=== PATIENT | male | born 1995 | race Caucasian/White ===

== ENCOUNTER 2018-08-04 22:29 | Emergency (ER) | payer SELFPAY ==
[2018-08-04] MEDS ORDERED: TETRACAINE HCL 0.5% 2ML OPTH ONE (22:53)
[2018-08-04] MEDS ORDERED: FLUORESCEIN SODIUM 0.6 MG/WRAP ONE (22:54)
[2018-08-04] MEDS ORDERED: NA CHLORIDE 0.9% 1,000 ML ONE (23:47)
[2018-08-04] MEDS ORDERED: CODEINE 30MG/APAP 300MG TAB ONE (23:52)
--- NOTE | 2018-08-05 00:34 | EDPHYS ---
Physician Documentation [facility] Name: Ramiro Jay Age: 23 yrs Sex: Male : 1995 Arrival Date: 08/04/2018 Time: 22:29 Bed 26 Private MD: ED Physician Juan Sparks HPI: 08/04 23:40 This 23 yrs old Male presents to ER via Ambulatory with complaints of pm1 Chemical Exposure In Eye. 23:40 The patient is experiencing pain, The patient sustained exposure to sulfur dust, to pm1 both eyes, caused by chemicals. Onset: The symptoms/episode began/occurred today. Duration: the symptoms are continuous. Aggravated by nothing. Alleviated by eye flush. Associated signs and symptoms: Pertinent positives: None. Pertinent negatives: None. Patient does not utilize any form of vision correction. Severity of symptoms: in the emergency department the symptoms have improved. The patient has not experienced similar symptoms in the past. The patient has not recently seen a physician. Patient was not wearing eye petty. Historical: - Allergies: 22:39 No Known Allergies; ak1 - Home Meds: 22:39 None [Active]; ak1 - PMHx: 22:39 ADD/ADHD; ak1 - PSHx: 22:39 None; ak1 - Immunization history:: Adult Immunizations unknown. - Social history:: Smoking status: Patient uses tobacco products, denies chronic smoking, but will smoke occasionally. - Ebola Screening: : No symptoms or risks identified at this time. ROS: 23:40 Constitutional: Negative for fever, chills, and weight loss, ENT: Negative for injury, pm1 pain, and discharge, Neck: Negative for injury, pain, and swelling, Cardiovascular: Negative for chest pain, palpitations, and edema, Respiratory: Negative for shortness of breath, cough, wheezing, and pleuritic chest pain. 23:40 Abdomen/GI: Negative for abdominal pain, nausea, vomiting, diarrhea, and constipation, Back: Negative for injury and pain, MS/Extremity: Negative for injury and deformity, Skin: Negative for injury, rash, and discoloration, Neuro: Negative for headache, weakness, numbness, tingling, and seizure. 23:40 Eyes: Positive for pain, of the right eye and left eye, Negative for photophobia. Exam: 23:40 Constitutional: This is a well developed, well nourished patient who is awake, alert, pm1 and in no acute distress. Head/Face: Normocephalic, atraumatic. 23:40 ENT: Nares patent. No nasal discharge, no septal abnormalities noted. Tympanic membranes are normal and external auditory canals are clear. Oropharynx with no redness, swelling, or masses, exudates, or evidence of obstruction, uvula midline. Mucous membranes moist. Neck: Trachea midline, no thyromegaly or masses palpated, and no cervical lymphadenopathy. Supple, full range of motion without nuchal rigidity, or vertebral point tenderness. No Meningismus. Chest/axilla: Normal chest wall appearance and motion. Nontender with no deformity. No lesions are appreciated. Cardiovascular: Regular rate and rhythm with a normal S1 and S2. No gallops, murmurs, or rubs. Normal PMI, no JVD. No pulse deficits. Respiratory: Lungs have equal breath sounds bilaterally, clear to auscultation and percussion. No rales, rhonchi or wheezes noted. No increased work of breathing, no retractions or nasal flaring. Abdomen/GI: Soft, non-tender, with normal bowel sounds. No distension or tympany. No guarding or rebound. No evidence of tenderness throughout. Back: No spinal tenderness. No costovertebral tenderness. Full range of motion. Skin: Warm, dry with normal turgor. Normal color with no rashes, no lesions, and no evidence of cellulitis. MS/ Extremity: Pulses equal, no cyanosis. Neurovascular intact. Full, normal range of motion. 23:40 Eyes: Periorbital structures: appear normal, Pupils: no acute changes, normal size, normal reaction to light, Extraocular movements: intact throughout, Conjunctiva: normal, no chemosis, no excoriation, no exudate, no injection, no subconjunctival hemorrhage no abnormal tearing, Corneas: abrasion, is not appreciated, foreign body, is not appreciated, a fluorescein strip employed to appreciate the findings, Sclera: no appreciated abnormality, Lids and lashes: appear normal, bilaterally. 23:40 Neuro: Orientation: is normal, Motor: is normal, moves all fours, Sensation: is normal, no obvious gross deficits, Gait: is steady, at a normal pace, without difficulty. Vital Signs: 22:39 BP 138 / 91; Pulse 96; Resp 18; Temp 98; Pulse Ox 98% on R/A; Weight 95.25 kg (R); ak1 Height 6 ft. 2 in. (187.96 cm) (R); Pain 10/10; 23:30 BP 130 / 85; Pulse 90; Resp 18; Pulse Ox 100% on R/A; Pain 2/10; mg2 08/05 00:30 BP 125 / 78; Pulse 89; Resp 18; Pulse Ox 100% on R/A; Pain 2/10; mg2 08/04 22:39 Body Mass Index 26.96 (95.25 kg, 187.96 cm) ak1 MDM: 08/04 22:52 Patient medically screened. pm1 08/05 00:29 Data reviewed: vital signs. Data interpreted: Pulse oximetry: on room air is 98 %. pm1 Interpretation: normal. Counseling: I had a detailed discussion with the patient and/or guardian regarding: the historical points, exam findings, and any diagnostic results supporting the discharge/admit diagnosis, the need for outpatient follow up, to return to the emergency department if symptoms worsen or persist or if there are any questions or concerns that arise at home. 08/04 22:56 Order name: Eye Tray; Complete Time: 22:57 tl3 Administered Medications: 08/04 22:53 Drug: Tetracaine Drops 0.5 % 1 drops Route: Ophthalmic; Site: both eyes; tl3 23:50 Follow up: Response: No adverse reaction tl3 22:54 Drug: Fluorescein Strip 1 strip Route: Ophthalmic; Site: both eyes; tl3 23:49 Follow up: Response: No adverse reaction tl3 23:49 Drug: Tylenol #3 (300 mg-30 mg) 2 tabs Route: PO; tl3 08/05 01:04 Follow up: Response: No adverse reaction; Marked relief of symptoms mg2 Disposition: 05:42 Co-signature as Attending Physician, Juan Sparks MD I agree with the assessment and tw4 plan of care. Disposition: 08/05/18 00:33 Discharged to Home. Impression: Irritant contact to eyes due to other chemical products - sulfur. - Condition is Stable. - Prescriptions for Erythromycin 5 mg/gram (0.5 %) Ophthalmic Ointment - apply 1 ribbon by OPHTHALMIC route every 8 hours for 7 days; 1 tube. - Medication Reconciliation Form, Thank You Letter, Antibiotic Education, Work release form form. - Follow up: Emergency Department; When: As needed; Reason: Worsening of condition. Follow up: Private Physician; When: 2 - 3 days; Reason: Recheck today's complaints, Continuance of care, Re-evaluation by your physician. - Problem is new. - Symptoms have improved. Signatures: Shellie Maria, RN RN ak1 Laurent Christine, AVP AVP pm1 Juan Sparks MD MD tw4 Jeny Peoples, RN RN tl3 Mark Anthony Pickett, AUDRA RN mg2 Corrections: (The following items were deleted from the chart) 00:35 00:33 08/05/2018 00:33 Discharged to Home. Impression: Irritant contact due to other pm1 chemical products - sulfur. Condition is Stable. Forms are Medication Reconciliation Form, Thank You Letter, Antibiotic Education, Prescription Opioid Use. Follow up: Emergency Department; When: As needed; Reason: Worsening of condition. Follow up: Private Physician; When: 2 - 3 days; Reason: Recheck today's complaints, Continuance of care, Re-evaluation by your physician. Problem is new. Symptoms have improved. pm1 01:05 00:35 08/05/2018 00:33 Discharged to Home. Impression: Irritant contact to eyes due to mg2 other chemical products - sulfur. Condition is Stable. Forms are Medication Reconciliation Form, Thank You Letter, Antibiotic Education, Prescription Opioid Use. Follow up: Emergency Department; When: As needed; Reason: Worsening of condition. Follow up: Private Physician; When: 2 - 3 days; Reason: Recheck today's complaints, Continuance of care, Re-evaluation by your physician. Problem is new. Symptoms have improved. pm1
--- NOTE | 2018-08-05 00:34 | ER ---
Nurse's Notes [facility] Name: Ramiro Jay Age: 23 yrs Sex: Male : 1995 Arrival Date: 08/04/2018 Time: 22:29 Bed 26 Private MD: Diagnosis: Irritant contact to eyes due to other chemical products - sulfur Presentation: 08/04 22:37 Presenting complaint: Patient states: pain, tearing and swelling to bilateral eyes ak1 since 1000 at work. pt stated he was not wearing safety glasses, they were not issued. pt flushed eyes with water at work. Transition of care: patient was not received from another setting of care. Onset of symptoms was August 04, 2018. Risk Assessment: Do you want to hurt yourself or someone else? Patient reports no desire to harm self or others. Initial Sepsis Screen: Does the patient meet any 2 criteria? No. Patient's initial sepsis screen is negative. Does the patient have a suspected source of infection? No. Patient's initial sepsis screen is negative. Note pt stated he is "really tired and I can't close my eyes to sleep". Care prior to arrival: None. 22:37 Method Of Arrival: Ambulatory ak1 22:37 Acuity: MICHELA 4 ak1 Triage Assessment: 22:39 General: Appears in no apparent distress. Behavior is calm, cooperative. Pain: ak1 Complains of pain in right eye and left eye. Historical: - Allergies: 22:39 No Known Allergies; ak1 - Home Meds: 22:39 None [Active]; ak1 - PMHx: 22:39 ADD/ADHD; ak1 - PSHx: 22:39 None; ak1 - Immunization history:: Adult Immunizations unknown. - Social history:: Smoking status: Patient uses tobacco products, denies chronic smoking, but will smoke occasionally. - Ebola Screening: : No symptoms or risks identified at this time. Screenin:40 Abuse screen: Denies threats or abuse. Denies injuries from another. Nutritional ak1 screening: No deficits noted. Tuberculosis screening: No symptoms or risk factors identified. Fall Risk None identified. Assessment: 22:50 General: Appears distressed, uncomfortable, well groomed, well developed, well tl3 nourished, Behavior is calm, cooperative, appropriate for age. Pain: Complains of pain in left eye and right eye. Neuro: Level of Consciousness is awake, alert, obeys commands, Oriented to person, place, time, situation, Appropriate for age. Cardiovascular: Patient's skin is warm and dry. Respiratory: Airway is patent Respiratory effort is even, unlabored, Respiratory pattern is regular, symmetrical. GI: No signs and/or symptoms were reported involving the gastrointestinal system. : No signs and/or symptoms were reported regarding the genitourinary system. EENT: Sclera/Cornea are reddened in outer aspect of conjuctiva of right eye, iris of right eye, inner aspect of conjuctiva of right eye, outer aspect of conjuctiva of left eye, iris of left eye and inner aspect of conjunctiva of left eye pt got sulphur in both eyes at work, flushed with water 5-6 times can not close eyes without pain. Derm: No signs and/or symptoms reported regarding the dermatologic system. Musculoskeletal: No signs and/or symptoms reported regarding the musculoskeletal system. 23:48 Reassessment: No changes from previously documented assessment. Patient and/or family tl3 updated on plan of care and expected duration. Pain level reassessed. Patient is alert, oriented x 3, equal unlabored respirations, skin warm/dry/pink. flushing eyes with 1 liter of NS, pt tolerating it well. Vital Signs: 22:39 BP 138 / 91; Pulse 96; Resp 18; Temp 98; Pulse Ox 98% on R/A; Weight 95.25 kg (R); ak1 Height 6 ft. 2 in. (187.96 cm) (R); Pain 10/10; 23:30 BP 130 / 85; Pulse 90; Resp 18; Pulse Ox 100% on R/A; Pain 2/10; mg2 08/05 00:30 BP 125 / 78; Pulse 89; Resp 18; Pulse Ox 100% on R/A; Pain 2/10; mg2 08/04 22:39 Body Mass Index 26.96 (95.25 kg, 187.96 cm) ak1 ED Course: 08/04 22:29 Patient arrived in ED. ds1 22:39 Triage completed. ak1 22:39 Arm band placed on Patient placed in an exam room, on a stretcher, Patient notified of ak1 wait time. 22:40 Patient has correct armband on for positive identification. Bed in low position. Call ak1 light in reach. Side rails up X 1. 22:43 Laurent Christine NP is PHCP. pm1 22:43 Juan Sparks MD is Attending Physician. pm1 22:50 Jeny Peoples, RN is Primary Nurse. tl3 22:50 No provider procedures requiring assistance completed. Patient did not have IV access tl3 during this emergency room visit. Administered Medications: 22:53 Drug: Tetracaine Drops 0.5 % 1 drops Route: Ophthalmic; Site: both eyes; tl3 23:50 Follow up: Response: No adverse reaction tl3 22:54 Drug: Fluorescein Strip 1 strip Route: Ophthalmic; Site: both eyes; tl3 23:49 Follow up: Response: No adverse reaction tl3 23:49 Drug: Tylenol #3 (300 mg-30 mg) 2 tabs Route: PO; tl3 08/05 01:04 Follow up: Response: No adverse reaction; Marked relief of symptoms mg2 Outcome: 00:33 Discharge ordered by MD. pm1 01:05 Discharged to home ambulatory. mg2 01:05 Condition: stable 01:05 Discharge instructions given to patient, Instructed on discharge instructions, follow up and referral plans. medication usage, Demonstrated understanding of instructions, follow-up care, medications, Prescriptions given X 1. 01:05 Patient left the ED. mg2 Signatures: Irina Mckinney ds1 Shellie Maria RN RN ak1 Laurent Christine, KATERINA SALES NEGOTIATOR pm1 Jeny Peoples, AUDRA RN tl3 Mark Anthony Pickett RN RN mg2
== END 2018-08-05 01:05 | disposition home or self-care (01) ==
LOC: ER 22:29
DX: L24.5 Irritant contact dermatitis due to other chemical products (principal); Y92.89 Other specified places as the place of occurrence of the external cause; Z72.0 Tobacco use
CPT/HCPCS: 99283; J7030

== ENCOUNTER 2020-09-04 14:23 | Emergency (ER) | payer BC, SELFPAY ==
--- OUTSIDE RECORDS SUMMARY | 2020-09-04 14:27 | XMS REPORT | Continuity of Care Document ---
:1995 Author Organization [facility] t Address [address] [place] [address] Dr. Loera [address] [place] [id number] Care Team Providers Name Role Phone Unavailable Unavailable Unavailable Problems This patient has no known problems. Allergies, Adverse Reactions, Alerts This patient has no known allergies or adverse reactions. Medications This patient has no known medications. Procedures This patient has no known procedures. Results This patient has no known results.
--- NOTE | 2020-09-04 16:11 | RAD REPORT ---
EXAM DESCRIPTION: USExtremity Venous Uni Ltd09/04/2020 3:57 pm CLINICAL HISTORY: Right leg pain . COMPARISON: None. FINDINGS: Right common femoral, superficial femoral, popliteal and right posterior tibial veins are compressible and demonstrate augmentation. Doppler demonstrates good flow. IMPRESSION: No evidence of deep venous thrombosis involving the right lower extremity.
--- NOTE | 2020-09-04 16:41 | EDPHYS ---
Physician Documentation [facility] Name: Ramiro Jay Age: 25 yrs Sex: Male : 1995 Arrival Date: 09/04/2020 Time: 14:27 Bed 25 Private MD: TARUN Physician Preston Harrison HPI: 09/04 16:36 This 25 yrs old Male presents to ER via Ambulatory with complaints of Leg dillan Problem. 16:36 The patient presents with decreased range of motion, pain, that is acute. The dillan complaints affect the posterior aspect of right knee. Context: The problem was sustained at an unknown site. Onset: The symptoms/episode began/occurred 3 day(s) ago. Modifying factors: The symptoms are alleviated by elevating leg, remaining still. Associated signs and symptoms: The patient has no apparent associated signs or symptoms. Severity of symptoms: At their worst the symptoms were mild. Historical: - Allergies: 14:29 No Known Allergies; sv - PMHx: 14:29 ADD/ADHD; sv - PSHx: 14:29 None; sv - Immunization history:: Adult Immunizations up to date. - Social history:: Smoking status: Reported history of juuling and/or vaping. - Family history:: not pertinent. ROS: 16:36 Constitutional: Negative for fever, chills, and weight loss, Eyes: Negative for injury, dillan pain, redness, and discharge, ENT: Negative for injury, pain, and discharge, Neck: Negative for injury, pain, and swelling, Cardiovascular: Negative for chest pain, palpitations, and edema, Respiratory: Negative for shortness of breath, cough, wheezing, and pleuritic chest pain, Abdomen/GI: Negative for abdominal pain, nausea, vomiting, diarrhea, and constipation, Back: Negative for injury and pain, : Negative for injury, bleeding, discharge, and swelling, Skin: Negative for injury, rash, and discoloration, Neuro: Negative for headache, weakness, numbness, tingling, and seizure, Psych: Negative for depression, anxiety, suicide ideation, homicidal ideation, and hallucinations, Allergy/Immunology: Negative for hives, rash, and allergies, Endocrine: Negative for neck swelling, polydipsia, polyuria, polyphagia, and marked weight changes, Hematologic/Lymphatic: Negative for swollen nodes, abnormal bleeding, and unusual bruising. 16:36 MS/extremity: Positive for decreased range of motion, pain, of the posterior aspect of right knee. Exam: 16:36 Constitutional: This is a well developed, well nourished patient who is awake, alert, dillan and in no acute distress. Head/Face: Normocephalic, atraumatic. Eyes: Pupils equal round and reactive to light, extra-ocular motions intact. Lids and lashes normal. Conjunctiva and sclera are non-icteric and not injected. Cornea within normal limits. Periorbital areas with no swelling, redness, or edema. ENT: Nares patent. No nasal discharge, no septal abnormalities noted. Tympanic membranes are normal and external auditory canals are clear. Oropharynx with no redness, swelling, or masses, exudates, or evidence of obstruction, uvula midline. Mucous membranes moist. Neck: Trachea midline, no thyromegaly or masses palpated, and no cervical lymphadenopathy. Supple, full range of motion without nuchal rigidity, or vertebral point tenderness. No Meningismus. Chest/axilla: Normal chest wall appearance and motion. Nontender with no deformity. No lesions are appreciated. Cardiovascular: Regular rate and rhythm with a normal S1 and S2. No gallops, murmurs, or rubs. Normal PMI, no JVD. No pulse deficits. Respiratory: Lungs have equal breath sounds bilaterally, clear to auscultation and percussion. No rales, rhonchi or wheezes noted. No increased work of breathing, no retractions or nasal flaring. Abdomen/GI: Soft, non-tender, with normal bowel sounds. No distension or tympany. No guarding or rebound. No evidence of tenderness throughout. Back: No spinal tenderness. No costovertebral tenderness. Full range of motion. Male : Normal genitalia with no discharge or lesions. Skin: Warm, dry with normal turgor. Normal color with no rashes, no lesions, and no evidence of cellulitis. Neuro: Awake and alert, GCS 15, oriented to person, place, time, and situation. Cranial nerves II-XII grossly intact. Motor strength 5/5 in all extremities. Sensory grossly intact. Cerebellar exam normal. Normal gait. Psych: Awake, alert, with orientation to person, place and time. Behavior, mood, and affect are within normal limits. 16:36 Musculoskeletal/extremity: Extremities: grossly normal except: noted in the posterior aspect of right knee: pain. Vital Signs: 14:30 BP 133 / 83; Pulse 77; Resp 16; Temp 97.7; Pulse Ox 99% ; Height 6 ft. 2 in. (187.96 sv cm); Pain 5/10; 16:38 BP 131 / 77; Pulse 65; Resp 18; Pulse Ox 98% on R/A; vg1 MDM: 16:25 Patient medically screened. [facility] 16:38 Differential diagnosis: contusion, abrasion, tendonitis. Data reviewed: vital signs, [facility] nurses notes, radiologic studies, doppler. Data interpreted: cardiac monitor: not applicable for this patient encounter. rate is 77 beats/min, rhythm is regular, Pulse oximetry: on room air is 98 %. Test interpretation: by ED physician or midlevel provider:. Counseling: I had a detailed discussion with the patient and/or guardian regarding: the historical points, exam findings, and any diagnostic results supporting the discharge/admit diagnosis, radiology results, the need for outpatient follow up, for definitive care, a orthopedic surgeon. 09/04 14:33 Order name: US Extremity Venous Unilateral Ltd; Complete Time: 16:30 sv 09/04 16:41 Order name: Shaheen Wrap; Complete Time: 16:51 [facility] Administered Medications: 16:51 Drug: Motrin 600 mg Route: PO; vg1 16:52 Follow up: Response: Medication administered at discharge. vg1 Disposition: 09/04/20 16:40 Discharged to Home. Impression: Pain in right leg - SOFT TISSUE. - Condition is Stable. - Discharge Instructions: Musculoskeletal Pain, RICE for Routine Care of Injuries, RICE for Routine Care of Injuries, [id number], Cryotherapy, [id number], Cryotherapy. - Prescriptions for Ibuprofen 600 mg Oral Tablet - take 1 tablet by ORAL route every 6 hours As needed take with food; 20 tablet. - Medication Reconciliation Form, Thank You Letter, Antibiotic Education, Prescription Opioid Use form. - Follow up: Private Physician; When: 5 - 6 days; Reason: Recheck today's complaints, Continuance of care, Re-evaluation by your physician. Follow up: Curtis Monte MD; When: 2 - 3 days; Reason: Recheck today's complaints, Re-evaluation by your physician. - Problem is new. - Symptoms have improved. Signatures: Dispatcher [employer] Penny Escobar, RN RN Preston Velasco MD MD cha Garcia, Victoria RN RN vg1 Corrections: (The following items were deleted from the chart) 16:52 16:40 09/04/2020 16:40 Discharged to Home. Impression: Pain in right leg - SOFT TISSUE. vg1 Condition is Stable. Forms are Medication Reconciliation Form, Thank You Letter, Antibiotic Education, Prescription Opioid Use. Follow up: Private Physician; When: 5 - 6 days; Reason: Recheck today's complaints, Continuance of care, Re-evaluation by your physician. Follow up: Dr. Curtis Monte; When: 2 - 3 days; Reason: Recheck today's complaints, Re-evaluation by your physician. Problem is new. Symptoms have improved. dillan
--- NOTE | 2020-09-04 16:41 | ER ---
Nurse's Notes [facility] Name: Ramiro Jay Age: 25 yrs Sex: Male : 1995 Arrival Date: 09/04/2020 Time: 14:27 Bed 25 [facility] MD: Diagnosis: Pain in right leg-SOFT TISSUE Presentation: 09/04 14:29 Chief complaint: Patient states: right posterior leg pain x 2 days ago. Coronavirus sv screen: Client denies travel out of the [place] in the last 14 days. At this time, the client does not indicate any symptoms associated with coronavirus-19. Ebola Screen: No symptoms or risks identified at this time. Risk Assessment: Do you want to hurt yourself or someone else? Patient reports no desire to harm self or others. Onset of symptoms was September 02, 2020. 14:29 Method Of Arrival: Ambulatory sv 14:29 Acuity: MICHELA 3 sv 14:30 Initial Sepsis Screen: Does the patient meet any 2 criteria? No. Patient's initial sv sepsis screen is negative. Does the patient have a suspected source of infection? No. Patient's initial sepsis screen is negative. Triage Assessment: 14:33 General: Appears in no apparent distress. uncomfortable, Behavior is calm, cooperative, sv appropriate for age. Pain: Complains of pain in right leg. Neuro: Level of Consciousness is awake, alert, obeys commands, Oriented to person, place, time, situation, Gait is steady. Respiratory: Respiratory effort is even, unlabored, Respiratory pattern is regular, symmetrical. Historical: - Allergies: 14:29 No Known Allergies; sv - PMHx: 14:29 ADD/ADHD; sv - PSHx: 14:29 None; sv - Immunization history:: Adult Immunizations up to date. - Social history:: Smoking status: Reported history of juuling and/or vaping. - Family history:: not pertinent. Screenin:39 Abuse screen: Denies threats or abuse. Nutritional screening: No deficits noted. vg1 Tuberculosis screening: No symptoms or risk factors identified. Fall Risk No fall in past 12 months (0 pts). No secondary diagnosis (0 pts). No IV (0 pts). Ambulatory Aid- None/Bed Rest/Nurse Assist (0 pts). Gait- Normal/Bed Rest/Wheelchair (0 pts) Mental Status- Oriented to own ability (0 pts). Total Jacobs Fall Scale indicates No Risk (0-24 pts). Assessment: 14:33 Reassessment: Received VO from Dr Harrison for US to r/o DVT. sv 16:37 General: Appears in no apparent distress. comfortable, Behavior is calm, cooperative. vg1 Pain: Complains of pain in posterior aspect of right knee Pain currently is 3 out of 10 on a pain scale. at worst was 8 out of 10 on a pain scale. Alleviated by rest, Aggravated by weight bearing. Neuro: Level of Consciousness is awake, alert, obeys commands, Oriented to person, place, time, situation. Cardiovascular: Patient's skin is warm and dry. Respiratory: Airway is patent Respiratory effort is even, unlabored. GI: No signs and/or symptoms were reported involving the gastrointestinal system. : No signs and/or symptoms were reported regarding the genitourinary system. EENT: No signs and/or symptoms were reported regarding the EENT system. Derm: Skin is intact, is healthy with good turgor. Musculoskeletal: Circulation, motion, and sensation intact. Vital Signs: 14:30 BP 133 / 83; Pulse 77; Resp 16; Temp 97.7; Pulse Ox 99% ; Height 6 ft. 2 in. (187.96 sv cm); Pain 5/10; 16:38 BP 131 / 77; Pulse 65; Resp 18; Pulse Ox 98% on R/A; vg1 ED Course: 14:27 Patient arrived in ED. mr 14:29 Triage completed. sv 14:30 Arm band placed on. sv 15:57 US Extremity Venous Unilateral Ltd In Process Unspecified. EDMS 16:25 Preston Harrison MD is Attending Physician. dillan 16:32 Avril Sanchez, RN is Primary Nurse. vg1 16:39 Patient has correct armband on for positive identification. Bed in low position. Call vg1 light in reach. Side rails up X 1. 16:40 Curtis Monte MD is Referral Physician. dillan 16:51 No provider procedures requiring assistance completed. Patient did not have IV access vg1 during this emergency room visit. Administered Medications: 16:51 Drug: Motrin 600 mg Route: PO; vg1 16:52 Follow up: Response: Medication administered at discharge. vg1 Outcome: 16:40 Discharge ordered by . dillan 16:52 Discharged to home ambulatory. vg1 16:52 Condition: stable 16:52 Discharge instructions given to patient, Instructed on discharge instructions, follow up and referral plans. medication usage, Demonstrated understanding of instructions, follow-up care, medications, Prescriptions given X 1. 16:52 Patient left the ED. vg1 Signatures: Dispatcher [employer] Penny Escobar RN RN sv Anderson, Corey, MD MD cha Rivera, Mary mr Garcia, Victoria, RN RN vg1
[2020-09-04 17:00] VITALS: TEMP 97.7
[2020-09-04 17:01] VITALS: BP 131/77; O2SAT 98
[2020-09-04] MEDS ORDERED: IBUPROFEN 200 MG TAB PO ONE (17:04)
== END 2020-09-04 16:52 | disposition home or self-care (01) ==
LOC: ER 14:23
DX: M79.604 Pain in right leg (principal); Z87.891 Personal history of nicotine dependence
CPT/HCPCS: 93971; 99283

== ENCOUNTER 2021-02-04 11:37 | Emergency (ER) | payer SELFPAY ==
--- OUTSIDE RECORDS SUMMARY | 2021-02-04 11:41 | XMS REPORT | Continuity of Care Document ---
:1995 Author Organization [facility] t Address [address] [place] [address] [address] [place] [address] Care Team Providers Name Role Phone Uzma Trent DO Attending Clinician Doctor Unassigned, Name Attending Clinician Unavailable Carol Beach Attending Clinician Cullen BALBUENA Attending Clinician Guerita BALBUENA Attending Clinician Singer ENAMORADO Attending Clinician Guerita BALBUENA Admitting Clinician Problems This patient has no known problems. Allergies, Adverse Reactions, Alerts This patient has no known allergies or adverse reactions. Medications This patient has no known medications. Procedures This patient has no known procedures. Encounters Start End Encounter Admission Attending Care Care Encounter Source Date/Time Date/Time Type Type Clinicians Facility Department ID 2021-01-07 2021-01-07 Emergency CHANTELL Trent [id number] 13:07:00 13:25:00 Thi Wall [id number] [place] [id number] [place] [id number] 2021-01-07 2021-01-07 Orders Doctor FIELDS [id number] 00:00:00 00:00:00 Only UnassignedMANDY [id number] [place] [facility] [id number] 2020-12-28 2020-12-28 Emergency Alvarez Archer [facility] [id number] 12:12:00 14:45:00 Carol Mae [id number] [place] [id number] [place] [id number] 2020-12-10 2020-12-10 Emergency Barrington Berman [facility] 1.2.840. [id number] 06:50:00 15:30:00 Raymundo Dexter [id number] [place] [id number] [place] [id number] 2020-12-10 2020-12-10 Orders Doctor DIAMOND [id number] 00:00:00 00:00:00 Only Unassigned, MANDY [id number] [place] [facility] [id number] [id number] 2020-11-21 2020-11-21 Emergency Singer [facility] [id number] 08:03:00 08:39:00 Daljit Wall [id number] [place] [id number] [place] [id number] Results This patient has no known results.
[2021-02-04 13:00] LABS: Absolute Lymphocytes (CBC) 1.5 K/uL (0.7-4.9); Basophils % 0.8 % (0-1.3); Hematocrit 45.5 % (39.6-49.0); Lymphocytes % 41.6 % (15.3-44.8); MPV 7.4 fL (7.6-11.3); RBC Red Blood Cell Count 5.23 M/uL (4.33-5.43)
[2021-02-04 13:17] LABS: ALT/SGPT 43 U/L (12-78); AST/SGOT 19 U/L (15-37); Albumin 4.4 g/dL (3.4-5.0); Alkaline Phosphatase 71 U/L (45-117); BUN Blood Urea Nitrogen 18 mg/dL (7-18); Bicarbonate 27 mmol/L (21-32); Bilirubin Direct 0.1 mg/dL (0-0.2); Bilirubin Total 0.6 mg/dL (0.2-1.0); Glucose Level 92 mg/dL (74-106); Lipase 244 U/L (73-393); Potassium 4.1 mmol/L (3.5-5.1); Protein, Total 8.1 g/dL (6.4-8.2); Sodium Level 141 mmol/L (136-145)
[2021-02-04] MEDS ORDERED: LIDOCAINE VISCOUS 2% SOLN 15 ML UDC ONE (14:51)
[2021-02-04] MEDS ORDERED: MAGNES/ALUMIN/SIMET 30ML UCUP ONE (14:51)
--- NOTE | 2021-02-04 14:58 | RAD REPORT ---
EXAM DESCRIPTION: CTAbdomen Pelvis W Contrast - 02/04/2021 2:26 pm CLINICAL HISTORY: Abdominal pain. Abd pain;Nausea / vomiting COMPARISON: No comparisons TECHNIQUE: Biphasic CT imaging of the abdomen and pelvis was performed with 100 ml non-ionic IV cont rast. All CT scans are performed using dose optimization technique as appropriate and may include automated exposure control or mA/KV adjustment according to patient size. FINDINGS: The lung bases are clear. The liver, spleen, pancreas, adrenal glands and kidneys are within normal limits. Rectal wall thickening. The appendix is normal. No evidence of significant lymphadenopathy. No suspicious bony findings. IMPRESSION: Nonspecific circumferential rectal wall thickening which may indicate proctitis. No othe r acute findings identified.
--- NOTE | 2021-02-04 15:08 | EDPHYS ---
Physician Documentation [facility] Name: Ramiro Jay Age: 25 yrs Sex: Male : 1995 Arrival Date: 02/04/2021 Time: 11:41 Bed 25 Private MD: ED Physician Luis Dang HPI: 02/04 14:46 This 25 yrs old Male presents to ER via Ambulatory with complaints of rn Abdominal Pain, Diarrhea, Nausea. 14:46 The patient presents to the emergency department with nausea, vomiting, diarrhea, rn abdominal pain. Onset: The symptoms/episode began/occurred 4 week(s) ago. Possible causes: unknown. The symptoms are aggravated by food , The symptoms are alleviated by nothing. Associated signs and symptoms: Pertinent positives: abdominal pain, anorexia, diarrhea, nausea, vomiting, Pertinent negatives: fever, GI bleeding. Severity of symptoms: At their worst the symptoms were moderate in the emergency department the symptoms have improved. The patient has experienced similar episodes in the past. The patient has not recently seen a physician. Patient reports 3 or 4 weeks of intermittent upper abdominal pain associated with nausea and sometimes vomiting. Positive for intermittent diarrhea. No blood in stool or emesis. Has been seen twice at outside ERs, unknown diagnosis, but told to modify diet. Has had heartburn since teenage years but does not take daily antacid medication. No fever.. Historical: - Allergies: 12:42 No Known Allergies; iw - PMHx: 12:42 ADD/ADHD; Pancreatitis; iw - Immunization history:: Adult Immunizations up to date. - Social history:: Smoking status: Patient/guardian denies using tobacco, Stopped _ months ago 6. - Family history:: not pertinent. - Hospitalizations: : No recent hospitalization is reported. ROS: 14:46 Constitutional: Negative for fever, chills, and weight loss, Eyes: Negative for injury, rn pain, redness, and discharge, Neck: Negative for injury, pain, and swelling, Cardiovascular: Negative for chest pain, palpitations, and edema, Respiratory: Negative for shortness of breath, cough, wheezing, and pleuritic chest pain, Abdomen/GI: Negative for constipation, Back: Negative for injury and pain, : Negative for injury, bleeding, discharge, and swelling, MS/Extremity: Negative for injury and deformity, Skin: Negative for injury, rash, and discoloration, Neuro: Negative for headache, weakness, numbness, tingling, and seizure. Exam: 14:46 Constitutional: This is a well developed, well nourished patient who is awake, alert, rn and in no acute distress. Head/Face: Normocephalic, atraumatic. ENT: Moist mucous membranes Cardiovascular: Regular rate and rhythm. No pulse deficits. Respiratory: No increased work of breathing, no retractions or nasal flaring. Abdomen/GI: Soft, mild epigastric tenderness no rebound or masses. Skin: Warm, dry MS/ Extremity: Pulses equal, no cyanosis. Neuro: Awake and alert, GCS 15 Vital Signs: 12:40 BP 119 / 98; Pulse 70; Resp 18; Temp 97.7; Pulse Ox 100% on R/A; iw 14:23 Pulse 65; Resp 16; Pulse Ox 100% ; zb 15:28 BP 122 / 79; Pulse 62; Resp 16; Pulse Ox 100% on R/A; zb MDM: 13:50 Patient medically screened. rn 15:06 Differential diagnosis: Nonspecific abd pain, gastritis, cholecystitis, pancreatitis, rn viral gastroenteritis, gastroenteritis. Data reviewed: vital signs, nurses notes, lab test result(s), radiologic studies, CT scan, and as a result, I will discharge patient. Counseling: I had a detailed discussion with the patient and/or guardian regarding: the historical points, exam findings, and any diagnostic results supporting the discharge/admit diagnosis, lab results, radiology results, the need for outpatient follow up, to return to the emergency department if symptoms worsen or persist or if there are any questions or concerns that arise at home. Response to treatment: the patient's symptoms have mildly improved after treatment, and as a result, I will discharge patient. Special discussion: Based on the patient's Hx, exam, and Dx evaluation, there is no indication for emergent surgery or inpatient Tx. It is understood by the patient/guardian that if the Sx's persist or worsen they need to return immediately for re-evaluation. I discussed with the patient/guardian in detail that at this point there is no indication for admission to the hospital. It is understood, however, that if the symptoms persist or worsen the patient needs to return immediately for re-evaluation. Based on the history and exam findings, there is no indication for further emergent testing or inpatient evaluation. I discussed with the patient/guardian the need to see the document advisor for further evaluation of the symptoms. ED course: Improved after GI cocktail, no acute findings on CT scan or blood work. Will DC home, recommend GI follow-up and daily antacid medication. Likely GERD with component of gastritis given present for 3 to 4 weeks and no acute finding ambulatory imaging.. 02/04 12:44 Order name: Basic Metabolic Panel; Complete Time: 13:50 iw 02/04 12:44 Order name: CBC with Diff; Complete Time: 13:50 iw 02/04 12:44 Order name: Hepatic Function; Complete Time: 13:50 iw 02/04 12:44 Order name: Lipase; Complete Time: 13:50 iw 02/04 14:02 Order name: CT Abd/Pelvis - IV Contrast Only; Complete Time: 14:59 rn 02/04 12:44 Order name: IV Saline Lock; Complete Time: 12:51 iw 02/04 12:44 Order name: Labs collected and sent; Complete Time: 12:51 iw Administered Medications: 14:49 Drug: GI Cocktail without - (Maalox Suspension 30 ml, Lidocaine Liquid 2 % 15 zb ml) Route: PO; 15:27 Follow up: Response: No adverse reaction; Marked relief of symptoms; Pain is decreased zb Disposition Summary: 02/04/21 15:08 Discharge Ordered Location: Home rn Problem: new rn Symptoms: have improved rn Condition: Stable rn Diagnosis - Gastritis, unspecified, without bleeding rn - Gastro-esophageal reflux disease without esophagitis rn Followup: rn - With: Robbie Gomez MD - When: As needed - Reason: Recheck today's complaints, Re-evaluation by your physician Discharge Instructions: - Discharge Summary Sheet rn - Food Choices for Gastroesophageal Reflux Disease, Adult rn - Gastritis, Adult rn - Indigestion rn - Gastroesophageal Reflux Disease, Adult, [id number] rn Forms: - Medication Reconciliation Form rn - Thank You Letter rn - Antibiotic rn neonatal - Prescription Opioid Use rn - Work release form zb Signatures: Dispatcher [employer] Letitia Wilson RN RN iw Luis Dang MD MD rn Brown, Zipporah, RN RN zb
--- NOTE | 2021-02-04 15:08 | ER ---
Nurse's Notes [facility] Name: Ramiro Jay Age: 25 yrs Sex: Male : 1995 Arrival Date: 02/04/2021 Time: 11:41 Bed 25 Private MD: Diagnosis: Gastritis, unspecified, without bleeding;Gastro-esophageal reflux disease without esophagitis Presentation: 02/04 12:40 Chief complaint: Patient states: went to [facility] a couple months ago, was iw told his pancreas and stomach was inflamed, was told to stop drinking and change his diet, last night he ate something bad and had sour candy and today he has bad abd pain and nauseous, had to miss work and will need a work note, is not vomiting, has mid abd pain. Coronavirus screen: At this time, the client does not indicate any symptoms associated with coronavirus-19. Ebola Screen: Patient negative for fever greater than or equal to 101.5 degrees Fahrenheit, and additional compatible Ebola Virus Disease symptoms Patient denies exposure to infectious person. Patient denies travel to an Ebola-affected area in the 21 days before illness onset. No symptoms or risks identified at this time. Initial Sepsis Screen: Does the patient meet any 2 criteria? No. Patient's initial sepsis screen is negative. Does the patient have a suspected source of infection? No. Patient's initial sepsis screen is negative. Risk Assessment: Do you want to hurt yourself or someone else? Patient reports no desire to harm self or others. Onset of symptoms was February 04, 2021. 12:40 Method Of Arrival: Ambulatory iw 12:40 Acuity: MICHELA 3 iw Historical: - Allergies: 12:42 No Known Allergies; iw - PMHx: 12:42 ADD/ADHD; Pancreatitis; iw - Immunization history:: Adult Immunizations up to date. - Social history:: Smoking status: Patient/guardian denies using tobacco, Stopped _ months ago 6. - Family history:: not pertinent. - Hospitalizations: : No recent hospitalization is reported. Screenin:52 Abuse screen: Denies threats or abuse. Denies injuries from another. Nutritional iw screening: No deficits noted. Tuberculosis screening: No symptoms or risk factors identified. Fall Risk IV access (20 points). Assessment: 12:51 General: Appears in no apparent distress. uncomfortable, Behavior is cooperative, iw anxious. Pain: Complains of pain in right upper quadrant and left upper quadrant. Neuro: Level of Consciousness is awake, alert, obeys commands, Oriented to person, place, time, situation, Moves all extremities. Full function. Respiratory: Respiratory effort is even, unlabored, Respiratory pattern is regular, symmetrical. GI: Abdomen is flat, Bowel sounds present X 4 quads. Abd is soft X 4 quads Reports upper abdominal pain, nausea. 14:21 General: Appears in no apparent distress. uncomfortable, Behavior is cooperative, zb anxious. Pain: Complains of pain in epigastric area Pain currently is 6 out of 10 on a pain scale. Quality of pain is described as burning, aching, tender, Aggravated by eating, drinking. Neuro: Level of Consciousness is awake, alert, obeys commands, Oriented to person, place, time, situation, Exchange Consultant are equal bilaterally Moves all extremities. Full function. Cardiovascular: Patient's skin is warm and dry. Respiratory: Airway is patent Respiratory effort is even, unlabored, Respiratory pattern is regular, symmetrical. GI: Abdomen is flat, Bowel sounds present X 4 quads. Abdomen is tender to palpation in epigastric area Reports upper abdominal pain, nausea. Derm: Skin is intact, is healthy with good turgor. Musculoskeletal: Range of motion: intact in all extremities. 15:28 Reassessment: Patient appears in no apparent distress at this time. Patient and/or zb family updated on plan of care and expected duration. Pain level reassessed. Patient is alert, oriented x 3, equal unlabored respirations, skin warm/dry/pink. ECP has already spoken to patient. Vital Signs: 12:40 BP 119 / 98; Pulse 70; Resp 18; Temp 97.7; Pulse Ox 100% on R/A; iw 14:23 Pulse 65; Resp 16; Pulse Ox 100% ; zb 15:28 BP 122 / 79; Pulse 62; Resp 16; Pulse Ox 100% on R/A; zb ED Course: 11:41 Patient arrived in ED. mr 12:42 Triage completed. iw 12:43 Arm band placed on. iw 12:51 Initial lab(s) drawn, by me, sent to lab. Inserted saline lock: 22 gauge in right iw antecubital area, using aseptic technique. Blood collected. 13:50 Luis Dang MD is Attending Physician. rn 13:52 Patient taken to treatment room, ambulatory, steady gait. sv 14:21 Yasmin Rea, AUDRA is Primary Nurse. zb 14:23 Patient has correct armband on for positive identification. Call light in reach. Side zb rails up X 1. Pulse ox on. NIBP on. 14:26 CT Abd/Pelvis - IV Contrast Only In Process Unspecified. EDMS 15:00 No provider procedures requiring assistance completed. IV discontinued, intact, zb bleeding controlled, No redness/swelling at site. Pressure dressing applied. 15:07 Robbie Gomez MD is Referral Physician. rn Administered Medications: 14:49 Drug: GI Cocktail without - (Maalox Suspension 30 ml, Lidocaine Liquid 2 % 15 zb ml) Route: PO; 15:27 Follow up: Response: No adverse reaction; Marked relief of symptoms; Pain is decreased zb Outcome: 15:00 Discharged to home ambulatory. zb 15:00 Condition: stable 15:00 Discharge instructions given to patient, Instructed on discharge instructions, follow up and referral plans. Demonstrated understanding of instructions, follow-up care. 15:08 Discharge ordered by . rn 15:29 Patient left the ED. zb Signatures: Dispatcher [employer] [facility] Penny Lofton RN RN sv Rivera, Mary mr Williams, Irene, RN RN iw Nieto, Roman, MD MD rn Brown, Zipporah, RN RN zrigo
[2021-02-04 15:47] VITALS: TEMP 97.7; O2SAT 100
[2021-02-04 15:53] VITALS: BP 122/79
== END 2021-02-04 15:29 | disposition home or self-care (01) ==
LOC: ER 11:37
DX: K29.70 Gastritis, unspecified, without bleeding (principal); K21.9 Gastro-esophageal reflux disease without esophagitis
CPT/HCPCS: 36415; 74177; 80048; 80076; 83690; 85025; 99284; Q9967

== ENCOUNTER 2021-03-19 16:18 | Emergency (ER) | payer OTHER ==
--- OUTSIDE RECORDS SUMMARY | 2021-03-19 16:21 | XMS REPORT | Continuity of Care Document ---
:1995 Author Organization [facility] t Address [address] [place] [address] [address] [place] [address] Care Team Providers Name Role Phone Uzma [...] 2021-01-07 2021-01-07 Emergency CHANTELL Trent [id number] 13:07:00 13:25:00 Thi Wall [id number] [place] [id number] [place] [id number] 2021-01-07 2021-01-07 Orders Doctor FIELDS [id number] 00:00:00 00:00:00 Only UnassignedMANDY [id number] [place] [facility] [id number] 2020-12-28 2020-12-28 Emergency Alvarez Archer [facility] [id number] 12:12:00 14:45:00 Carol Mae [id number] [place] [id number] [place] [id number] 2020-12-10 2020-12-10 Emergency Barrington Berman [facility] 1.2.840. [id number] 06:50:00 15:30:00 Raymundo Dexter [id number] [place] [id number] [place] [id number] 2020-12-10 2020-12-10 Orders Doctor DIAMOND [id number] 00:00:00 00:00:00 Only Unassigned, MANDY [id number] [place] [facility] [id number] 2020-11-21 2020-11-21 Emergency Singer [facility] [id number] 08:03:00 08:39:00 Daljit Wall [id number] [place] [id number] [place] [id number] [id number] Results This patient has no known results.
[2021-03-19 16:55] LABS: Urine Blood Negative (Negative); Urine Glucose Negative (Negative); Urine Protein Negative (Negative); Urine Specific Gravity >=1.030 (1.005-1.030); Urine pH 5.5 (5.0-7.0)
[2021-03-19 17:36] LABS: Absolute Lymphocytes (CBC) 1.7 K/uL (0.7-4.9); Basophils % 0.6 % (0-1.3); Hematocrit 45.9 % (39.6-49.0); Lymphocytes % 34.8 % (15.3-44.8); MPV 7.8 fL (7.6-11.3); RBC Red Blood Cell Count 5.23 M/uL (4.33-5.43)
--- NOTE | 2021-03-19 17:40 | RAD REPORT ---
EXAM DESCRIPTION: RAD - Chest Single View - 03/19/2021 5:32 pm CLINICAL HISTORY: CHEST PAIN Chest pain. COMPARISON: Chest Single View dated 01/28/2021; Chest Single View dated 01/10/2021; Chest Pa And Lat (2 Views) dated 10/08/2020hest Pa And Lat (2 Views) dated 11/03/2016 FINDINGS: Portable technique limits examination quality. The lungs are grossly clear. The heart is normal in size. No displaced fractures. IMPRESSION: No acute intrathoracic process suspected.
[2021-03-19 17:46] LABS: Protime INR 1.03
[2021-03-19 18:00] LABS: ALT/SGPT 38 U/L (12-78); AST/SGOT 15 U/L (15-37); Albumin 4.1 g/dL (3.4-5.0); Alkaline Phosphatase 70 U/L (45-117); BUN Blood Urea Nitrogen 18 mg/dL (7-18); Bicarbonate 29 mmol/L (21-32); Bilirubin Direct < 0.1 mg/dL (0-0.2); Bilirubin Total 0.5 mg/dL (0.2-1.0); Glucose Level 82 mg/dL (74-106); Lipase 207 U/L (73-393); NT PRO-BNP 7 pg/mL (<125); Potassium 3.8 mmol/L (3.5-5.1); Protein, Total 7.9 g/dL (6.4-8.2); Sodium Level 143 mmol/L (136-145); Troponin (Emerg Dept Use Only) < 0.02 ng/mL (0.0-0.045)
[2021-03-19 18:10] LABS: Barbiturates NEGATIVE (NEGATIVE); Benzodiazepines NEGATIVE (NEGATIVE); Cocaine NEGATIVE (NEGATIVE); METHAMPHETAM NEGATIVE (NEGATIVE); Methadone NEGATIVE (NEGATIVE); Opiates NEGATIVE (NEGATIVE); Phencyclidine NEGATIVE (NEGATIVE); THC Cannibis POSITIVE (NEGATIVE)
[2021-03-19] MEDS ORDERED: PANTOPRAZOLE 40 MG INJ ONE (18:17)
[2021-03-19] MEDS ORDERED: KETOROLAC 30 MG/ML INJ ONE (18:17)
[2021-03-19] MEDS ORDERED: NA CHLORIDE 0.9% 1,000 ML ONE (18:17)
--- NOTE | 2021-03-19 18:50 | RAD REPORT ---
EXAM DESCRIPTION: CT - Head Brain Wo Cont - 03/19/2021 6:35 pm CLINICAL HISTORY: DIZZINESS Headache, drowsiness COMPARISON: No comparisons TECHNIQUE: All CT scans are performed using dose optimization technique as appropriate and may inclu de automated exposure control or mA/KV adjustment according to patient size. FINDINGS: No intracranial hemorrhage, hydrocephalus or extra-axial fluid collection.No areas of brai n edema or evidence of midline shift. The paranasal sinuses and mastoids are clear. The calvarium is intact. IMPRESSION: No acute intracranial abnormality.
[2021-03-19] MEDS ORDERED: MECLIZINE HCL 12.5 MG TAB ONE (18:58)
--- NOTE | 2021-03-19 19:08 | EDPHYS ---
Physician Documentation [facility] Name: Ramiro Jay Age: 25 yrs Sex: Male : 1995 Arrival Date: 03/19/2021 Time: 16:20 Bed 26 Private MD: ED Physician Luis Dang HPI: 03/19 17:00 This 25 yrs old Male presents to ER via Ambulatory with complaints of Chest cp Pain, Dizziness. 17:00 The patient or guardian reports chest pain that is located primarily in the anterior cp chest wall, left. 17:00 The pain radiates to the left arm. Associated signs and symptoms: Pertinent positives: cp dizziness, Pertinent negatives: abdominal pain, cough, diaphoresis, lower extremity pain, lower extremity swelling, shortness of breath, syncope, vomiting. The chest pain is described as sharp. Duration: The patient or guardian reports a single episode, that is still ongoing, and unchanged. Pain started 2-3 days ago. Historical: - Allergies: 16:38 No Known Allergies; kg - Home Meds: 16:38 Nexium oral [Active]; kg - PMHx: 16:38 ADD/ADHD; Pancreatitis; kg - PSHx: 16:38 None; kg - Immunization history:: Adult Immunizations not up to date, Client reports having NOT received the Covid vaccine. - Social history:: Smoking status: Patient/guardian denies using tobacco, Stopped _ months ago 6. ROS: 17:10 Constitutional: Negative for body aches, chills, fever, poor PO intake. cp 17:10 Abdomen/GI: Negative for abdominal pain, nausea, vomiting, and diarrhea. 17:10 Back: Negative for pain at rest, pain with movement. 17:10 : Negative for urinary symptoms, flank pain. 17:10 MS/extremity: Positive for pain, swelling, tenderness, of the medial aspect right knee, radiating pain to groin, Negative for decreased range of motion. 17:10 Skin: Negative for cellulitis, rash. 17:10 All other systems are negative. Exam: 16:50 ECG was reviewed by the Attending Physician. cp 17:15 Constitutional: The patient appears in no acute distress, alert, awake, cp non-diaphoretic, non-toxic, well developed, well nourished. 17:15 Head/Face: Normocephalic, atraumatic. cp 17:15 Eyes: Periorbital structures: appear normal, Pupils: equal, round, and reactive to light and accomodation, Extraocular movements: intact throughout, Conjunctiva: normal, no exudate, no injection, Sclera: no appreciated abnormality, Lids and lashes: appear normal, bilaterally. 17:15 ENT: External ear(s): are unremarkable, Ear canal(s): are normal, clear, TM's: dullness, bilaterally, Nose: is normal, Mouth: Lips: moist, Oral mucosa: moist, Posterior pharynx: Airway: no evidence of obstruction, patent. 17:15 Neck: ROM/movement: is normal, is supple, without pain, no range of motions limitations. 17:15 Chest/axilla: Inspection: normal, Palpation: is normal, no crepitus, no tenderness. 17:15 Cardiovascular: Rate: normal, Rhythm: regular, Pulses: Pulses are 2+ in right radial artery and left radial artery. Edema: is not appreciated, JVD: is not appreciated. 17:15 Respiratory: the patient does not display signs of respiratory distress, Respirations: normal, no use of accessory muscles, no retractions, labored breathing, is not present, Breath sounds: are clear throughout, no decreased breath sounds, no stridor, no wheezing. 17:15 Abdomen/GI: Inspection: abdomen appears normal, Bowel sounds: active, all quadrants, Palpation: abdomen is soft and non-tender, in all quadrants. 17:15 Back: pain, is absent, ROM is normal. 17:15 Skin: no rash present. 17:15 Neuro: Orientation: to person, place \T\ time. Mentation: is normal, Cerebellar function: is grossly normal, Motor: moves all fours, strength is normal, Sensation: is normal. Vital Signs: 16:30 BP 122 / 72; Pulse 67; Resp 18; Pulse Ox 98% on R/A; kg 16:33 BP 133 / 100; Pulse 88; Resp 20; Temp 98.6(O); Pulse Ox 99% on R/A; Weight 95.25 kg kg (R); Height 6 ft. 0 in. (182.88 cm); Pain 6/10; 17:00 BP 114 / 71; Pulse 60; Resp 18; Pulse Ox 97% ; kg 18:00 BP 124 / 77; Pulse 57; Resp 18; Pulse Ox 97% ; kg 18:30 BP 123 / 85; Pulse 53; Resp 20; Pulse Ox 97% on R/A; kg 19:30 BP 126 / 81; Pulse 60; Resp 20; Pulse Ox 100% on R/A; kg 16:33 Body Mass Index 28.48 (95.25 kg, 182.88 cm) kg MDM: 16:46 Patient medically screened. cp 17:00 Differential diagnosis: acute pericarditis, anxiety, chest wall pain, cholecystitis, cp Cholelithiasis costochondritis, pancreatitis, pericarditis, pleurisy, pneumonia, pneumothorax, pulmonary embolus, thoracic aortic disection, unstable angina. 19:05 Data reviewed: vital signs, nurses notes, lab test result(s), EKG, radiologic studies, cp CT scan, plain films. 19:05 Test interpretation: by ED physician or midlevel provider: ECG, plain radiologic cp studies. Counseling: I had a detailed discussion with the patient and/or guardian regarding: the historical points, exam findings, and any diagnostic results supporting the discharge/admit diagnosis, lab results, radiology results, the need for outpatient follow up, a family practitioner, to return to the emergency department if symptoms worsen or persist or if there are any questions or concerns that arise at home. Response to treatment: the patient's symptoms have markedly improved after treatment, VSS. Dizziness and pain markedly improved. EKG normal and troponin negative. Will discharge to home for continued monitoring. 03/19 16:47 Order name: Basic Metabolic Panel; Complete Time: 18:18 cp 03/19 18:18 Interpretation: Normal except: CL 110; GFR 86. cp 03/19 16:47 Order name: CBC with Diff; Complete Time: 18:18 cp 03/19 16:47 Order name: LFT's; Complete Time: 18:18 cp 03/19 16:47 Order name: Magnesium; Complete Time: 18:18 cp 03/19 16:47 Order name: NT PRO-BNP; Complete Time: 18:18 cp 03/19 16:47 Order name: PT-INR; Complete Time: 18:18 cp 03/19 16:47 Order name: Troponin (emerg Dept Use Only); Complete Time: 18:18 cp 03/19 16:47 Order name: XRAY Chest (1 view); Complete Time: 18:18 cp 03/19 16:47 Order name: Lipase; Complete Time: 18:18 cp 03/19 16:47 Order name: UDS; Complete Time: 18:18 cp 03/19 16:47 Order name: D-Dimer; Complete Time: 18:18 cp 12 16:55 Order name: Urine Dipstick-Ancillary; Complete Time: 18:18 EDMS 03/19 18:19 Order name: CT Head Brain wo Cont; Complete Time: 19:02 cp 03/19 16:47 Order name: EKG; Complete Time: 16:48 cp 03/19 16:47 Order name: Cardiac monitoring; Complete Time: 18:33 cp 03/19 16:47 Order name: EKG - Nurse/Tech; Complete Time: 18:33 cp 03/19 16:47 Order name: IV Saline Lock; Complete Time: 18:33 cp 03/19 16:47 Order name: Labs collected and sent; Complete Time: 18:33 cp 03/19 16:47 Order name: O2 Per Protocol; Complete Time: 18:33 cp 03/19 16:47 Order name: O2 Sat Monitoring; Complete Time: 18:33 cp EC:50 Rate is 65 beats/min. Rhythm is regular. ME interval is normal. QRS interval is normal. cp QT interval is normal. T waves are Inverted in lead aVR. Interpreted by me. Reviewed by me. Administered Medications: 17:58 Drug: ProTONIX (pantoprazole) 40 mg Route: IVP; Site: right antecubital; kg 19:45 Follow up: Response: No adverse reaction; Pain is decreased kg 17:58 Drug: Ketorolac 15 mg Route: IVP; Site: right antecubital; kg 19:45 Follow up: Response: No adverse reaction; Pain is decreased kg 17:58 Drug: NS 0.9% 1000 ml Route: IV; Rate: 1 bolus; Site: right antecubital; kg 19:30 Follow up: IV Status: Completed infusion; IV Intake: 1000ml kg 18:42 Drug: Meclizine 25 mg Route: PO; kg 19:44 Follow up: Response: No adverse reaction; Pain is decreased kg Disposition: 19:20 Chart complete. 03/20 07:05 Co-signature as Attending Physician, Luis Dang MD. rn 07:06 I agree with the assessment and plan of care. Attestation: The patient's history, exam rn findings, diagnostics, and a summary of any interventions or procedures was reviewed in detail with Preston MCCORMICK. Disposition Summary: 03/19/21 19:07 Discharge Ordered Location: Home cp Problem: new cp Symptoms: have improved cp Condition: Stable cp Diagnosis - Chest pain, unspecified cp - Dizziness and giddiness cp Followup: cp - With: Private Physician - When: 2 - 3 days - Reason: Worsening of condition Discharge Instructions: - Discharge Summary Sheet cp - Nonspecific Chest Pain, Adult cp - Dizziness cp Forms: - Medication Reconciliation Form cp - Thank You Letter cp - Antibiotic Education cp - Prescription Opioid Use cp Prescriptions: - Ibuprofen 800 mg Oral Tablet - take 1 tablet by ORAL route every 8 hours As needed take with food; 30 tablet; cp Refills: 0, Product Selection Permitted - Meclizine 25 mg Oral Tablet - take 1 tablet by ORAL route every 8 hours As needed; 30 tablet; Refills: 0, cp Product Selection Permitted - Pepcid 20 mg Oral Tablet - take 1 tablet by ORAL route every 12 hours for 10 days; 20 tablet; Refills: 0, cp Product Selection Permitted Signatures: Dispatcher [employer] EDMS Luis Dang MD MD rn Page, Corey, PA PA cp Graham, Kristen, RN RN kg Corrections: (The following items were deleted from the chart) 17:49 03/18 17:00 This 25 yrs old Male presents to ER via Ambulatory with cp complaints of Chest Pain, Dizziness. cp 03/20 17:50 03/18 17:10 MS/extremity: Positive for pain, swelling, tenderness, of the medial aspect cp right knee, radiating pain to groin, Negative for decreased range of motion, cp 03/20 17:50 03/18 17:10 Constitutional: Negative for body aches, chills, fever, poor PO intake, cp cp 03/20 17:50 09 17:10 Abdomen/GI: Negative for abdominal pain, nausea, vomiting, and diarrhea, cp cp 03/20 17:50 03/18 17:10 Back: Negative for pain at rest, pain with movement, cp cp 03/20 17:50 03/18 17:10 : Negative for urinary symptoms, flank pain, cp cp 03/20 17:50 03/18 17:10 Skin: Negative for cellulitis, rash, cp cp 03/20 17:50 03/18 17:10 All other systems are negative, cp cp
--- NOTE | 2021-03-19 19:08 | ER ---
Nurse's Notes [facility] Name: Ramiro Jay Age: 25 yrs Sex: Male : 1995 Arrival Date: 03/19/2021 Time: 16:20 Bed 26 Private MD: Diagnosis: Chest pain, unspecified;Dizziness and giddiness Presentation: 03/19 16:33 Chief complaint: Patient states: Dizziness, lightheaded, nausea, vomiting, chest pain x kg 4 days. Pt stated, " I have problems with my Pancrease but I haven't had money to go to the doctor.". Coronavirus screen: Vaccine status: Patient reports being unvaccinated. Client denies travel out of the [place] in the last 14 days. nausea, vomiting. Ebola Screen: Patient negative for fever greater than or equal to 101.5 degrees Fahrenheit, and additional compatible Ebola Virus Disease symptoms Patient denies exposure to infectious person. Patient denies travel to an Ebola-affected area in the 21 days before illness onset. Initial Sepsis Screen: Does the patient meet any 2 criteria? No. Patient's initial sepsis screen is negative. Does the patient have a suspected source of infection? No. Patient's initial sepsis screen is negative. Risk Assessment: Do you want to hurt yourself or someone else? Patient reports no desire to harm self or others. Onset of symptoms was March 15, 2021. 16:33 Method Of Arrival: Ambulatory kg 16:33 Acuity: MICHELA 3 kg Triage Assessment: 16:38 General: Appears in no apparent distress. Behavior is calm, cooperative, appropriate kg for age, quiet. Pain: Complains of pain in diaphragm Pain currently is 6 out of 10 on a pain scale. Cardiovascular: Reports chest pain, lightheadedness, nausea, vomiting, Heart tones S1 S2 Rhythm is regular Chest pain is described as Pain is 6 out of 10 on a pain scale. Respiratory: No deficits noted. 16:38 GI: Reports nausea, vomiting. kg Historical: - Allergies: 16:38 No Known Allergies; kg - Home Meds: 16:38 Nexium oral [Active]; kg - PMHx: 16:38 ADD/ADHD; Pancreatitis; kg - PSHx: 16:38 None; kg - Immunization history:: Adult Immunizations not up to date, Client reports having NOT received the Covid vaccine. - Social history:: Smoking status: Patient/guardian denies using tobacco, Stopped _ months ago 6. Screenin:40 Abuse screen: Denies threats or abuse. Denies injuries from another. Nutritional kg screening: No deficits noted. Tuberculosis screening: No symptoms or risk factors identified. Fall Risk None identified. Assessment: 16:00 General: Appears in no apparent distress. Behavior is calm, cooperative, appropriate kg for age, quiet. Pain: Complains of pain in chest Pain does not radiate. Pain currently is 6 out of 10 on a pain scale. at worst was 9 out of 10 on a pain scale. level that patient reports is acceptable is 3 out of 10 on a pain scale. Quality of pain is described as aching, Pain began 2-3 days ago. Is intermittent. Cardiovascular: Reports chest pain, Heart tones S1 S2 Capillary refill < 3 seconds. Cardiovascular: Rhythm is regular. Respiratory: Breath sounds are clear. Respiratory: No deficits noted. GI: Reports nausea, vomiting. : No deficits noted. 16:00 Neuro: Reports dizziness. kg Vital Signs: 16:30 BP 122 / 72; Pulse 67; Resp 18; Pulse Ox 98% on R/A; kg 16:33 BP 133 / 100; Pulse 88; Resp 20; Temp 98.6(O); Pulse Ox 99% on R/A; Weight 95.25 kg kg (R); Height 6 ft. 0 in. (182.88 cm); Pain 6/10; 17:00 BP 114 / 71; Pulse 60; Resp 18; Pulse Ox 97% ; kg 18:00 BP 124 / 77; Pulse 57; Resp 18; Pulse Ox 97% ; kg 18:30 BP 123 / 85; Pulse 53; Resp 20; Pulse Ox 97% on R/A; kg 19:30 BP 126 / 81; Pulse 60; Resp 20; Pulse Ox 100% on R/A; kg 16:33 Body Mass Index 28.48 (95.25 kg, 182.88 cm) kg ED Course: 16:20 Patient arrived in ED. rg4 16:20 Inserted saline lock: 20 gauge in right antecubital area, using aseptic technique. kg Patient maintains SpO2 saturation greater than 95% on room air. 16:33 Bharti Lawson RN is Primary Nurse. kg 16:35 Preston Grigsby PA is PHCP. cp 16:35 Luis Dang MD is Attending Physician. cp 16:38 Triage completed. kg 16:38 Arm band placed on right wrist. kg 16:40 Patient has correct armband on for positive identification. senior research scientist on. kg 16:40 No provider procedures requiring assistance completed. kg 17:32 XRAY Chest (1 view) In Process Unspecified. EDMS 18:34 CT Head Brain wo Cont In Process Unspecified. EDMS 19:44 IV discontinued, intact, bleeding controlled, No redness/swelling at site. Pressure kg dressing applied. Administered Medications: 17:58 Drug: ProTONIX (pantoprazole) 40 mg Route: IVP; Site: right antecubital; kg 19:45 Follow up: Response: No adverse reaction; Pain is decreased kg 17:58 Drug: Ketorolac 15 mg Route: IVP; Site: right antecubital; kg 19:45 Follow up: Response: No adverse reaction; Pain is decreased kg 17:58 Drug: NS 0.9% 1000 ml Route: IV; Rate: 1 bolus; Site: right antecubital; kg 19:30 Follow up: IV Status: Completed infusion; IV Intake: 1000ml kg 18:42 Drug: Meclizine 25 mg Route: PO; kg 19:44 Follow up: Response: No adverse reaction; Pain is decreased kg Intake: 19:30 IV: 1000ml; Total: 1000ml. kg Outcome: 19:07 Discharge ordered by MD. cp 19:44 Discharged to home ambulatory. kg 19:44 Condition: improved 19:44 Discharge instructions given to patient, Instructed on discharge instructions, follow up and referral plans. Demonstrated understanding of instructions, follow-up care, medications, Prescriptions given X 3. 19:46 Patient left the ED. kg Signatures: Dispatcher [employer] EDMS Preston Grigsby PA PA cp Garcia, Rubi rg4 Bharti Lawson RN RN kg Corrections: (The following items were deleted from the chart) 19:11 18:00 General: Appears in no apparent distress. Behavior is calm, cooperative, kg appropriate for age, quiet, kg 19:11 18:00 Pain: Complains of pain in chest Pain does not radiate. Pain currently is 6 out kg of 10 on a pain scale. at worst was 9 out of 10 on a pain scale. level that patient reports is acceptable is 3 out of 10 on a pain scale. Quality of pain is described as aching, Pain began 2-3 days ago. Is intermittent, kg 19:11 18:00 Neuro: No deficits noted. kg kg 19:11 18:00 Cardiovascular: Reports chest pain, Heart tones S1 S2 Capillary refill < 3 kg seconds kg 19:11 18:00 Respiratory: No deficits noted. kg kg 19:11 18:00 Cardiovascular: Rhythm is regular kg kg 19: 18:00 Respiratory: Breath sounds are clear kg kg 19:11 18:00 Neuro: Reports dizziness, since 3 days kg kg 19:11 18:00 GI: Reports nausea, vomiting, kg kg 19:11 18:00 : No deficits noted. kg kg
[2021-03-19 19:57] VITALS: TEMP 98.6
[2021-03-19 20:02] VITALS: BP 126/81; O2SAT 100
== END 2021-03-19 19:46 | disposition home or self-care (01) ==
LOC: ER 16:18
DX: R07.89 Other chest pain (principal); R42 Dizziness and giddiness; F90.9 Attention-deficit hyperactivity disorder, unspecified type
CPT/HCPCS: 96361; 93005; 85025; 80048; 36415; 83735; 85610; 85379; 80076; 81003; 84484; 83690; 83880; 80307; 70450; 71045; 96375; 96374; 99285; C9113; J7030

== ENCOUNTER 2021-07-14 08:36 | Emergency (ER) | payer OTHER ==
--- OUTSIDE RECORDS SUMMARY | 2021-07-14 08:39 | XMS REPORT | Continuity of Care Document ---
:1995 Author Organization [facility] t Address [address] [place] [address] Care Team Providers Name Role Phone Uzma Trent DO Attending Clinician Doctor Unassigned, Name Attending Clinician Unavailable Carol Beach Attending Clinician Cullen BALBUENA Attending Clinician Guerita BALBUENA Attending Clinician Singer ENAMORADO Attending Clinician Attending Clinician Unavailable Guerita BALBUENA Admitting Clinician Payers Payer Name Policy Type Policy Number Effective Date Expiration Date S satya MEDICAID PENDING PENDING 2020 00:00:00 Problems Condition Condition Condition Status Onset Resolution Last Treating Co mments Source Name Details Category Date Date Treatment Clinician Date Vomiting Vomiting Disease Active Unive rs 6-05 ity of 00:00: [address] No known No known Disease Unive rs active active ity of problems problems [facility] Allergies, Adverse Reactions, Alerts Allergy Allergy Status Severity Reaction(s) Onset Inactive Treating Comm ents Source Name Type Date Date Clinician NO KNOWN Drug Active Univers ALLERGIE Class ity of S [facility] Social History Social Habit Start Date Stop Date Quantity Comments Source History of tobacco Cigarette Smoker University of use [facility] Exposure to Not sure University of SARS-CoV-2 (event) [facility] Tobacco use and 2020-12-28 2020-12-28 Never used Universit y of exposure 00:00:00 00:00:00 [facility] Alcohol intake 2020-12-28 2020-12-28 Current drinker Unive rsity of 00:00:00 00:00:00 of alcohol [facility] (finding) Branch Cigarettes smoked 2020-12-28 2020-12-28 Univers ity of current (pack per 00:00:00 00:00:00 ) - Reported Branch Cigarette 2020-12-28 2020-12-28 University of pack-years 00:00:00 00:00:00 [facility] Tobacco Comment 2020-12-10 2020-12-10 quit 3 months Univer sity of 00:00:00 00:00:00 ago [facility] Sex Assigned At [birth year] Universit y of 00:00:00 00:00:00 [facility] Smoking Status Start Date Stop Date Source Former smoker 2020-12-28 00:00:00 2020-12-28 00:00:00 Universi ty of [facility] Current every day 2017-06-22 00:00:00 [facility] smoker [facility] Medications Ordered Filled Start Stop Current Ordering Indication Dosage Frequency Signature Comments Components Source Medication Medication Date Date Medication? Clinician (SIG) Name Name famotidine No 20mg 20 mg, IV U nivers 20 mg in NS 12-28 Piggyback, i ty of 50 ml 19:45: 19:31 ONCE, 1 [place] (PEPCID) 20 00 :00 dose, Wed Med ical mg/50 mL 12/28/20 at [facility] h Piggyback 1445, 50 20 mg mL NaCl 0.9% 2020- No 1000mL at 999 Uni vers (NS) bolus 12-28 mL/hr, ity of infusion 19:30: 19:31 1,000 mL, Antoine as 1,000 mL 00 :00 IV Medical Infusion, [place] ONCE, 1 dose, 12/28/20 at 1430, STAT iopamidol 2020- No [id number] 120mL 120 mL, Univers (ISOVUE 12-28 Intravenou ity o f 370-500 mL) 18:40: 18:40 s, ONCE, 1 [place] injection 00 :00 dose, Wed Medic al 120 mL 12/28/20 at Branch 1400, Routine ondansetron 2020- No 4mg 4 mg, Slow Univers (ZOFRAN 6-23 06-23 IV Push, ity of (PF)) 18:30: 17:42 ONCE, 1 [place] injection 4 00 :00 dose, Wed Med ical mg 12/28/20 at Branch 1330, JOJO ondansetron 2020-0 Yes [id number] 4mg Take 1 Univers (ZOFRAN 6-23 tablet by ity of ODT) 4 mg 00:00: mouth [place] disintegrat 00 every 8 Medic al ing tablet (eight) Branch hours as needed for Nausea and Vomiting (N/V). ondansetron 0 Yes [id number] 4mg Take 1 Univers (ZOFRAN 6-23 tablet by ity of ODT) 4 mg 00:00: mouth [place] disintegrat 00 every 8 Medic al ing tablet (eight) Branch hours as needed for Nausea and Vomiting (N/V). ondansetron 0 Yes [id number] 4mg Take 1 Univers (ZOFRAN 6-23 tablet by ity of ODT) 4 mg 00:00: mouth [place] disintegrat 00 every 8 Medic al ing tablet (eight) Branch hours as needed for Nausea and Vomiting (N/V). enoxaparin Yes 30mg 30 mg, Unive rs (LOVENOX) 6-05 Subcutaneo ity of injection 22:00: [place]ILY, [place] 30 mg 00 First dose Medical on Sat Branch 12/10/20 at 1700, Until Discontinu ed, Routine lactated 0 Yes 1000mL at 100 Unive rs ringers IV 6-05 mL/hr, ity of infusion 16:00: 1,000 mL, [place] 1,000 mL 00 IV Medical Infusion, Branch CONTINUOUS , Starting 12/10/20 at 1100, Until Discontinu ed, Routine acetaminoph 2020-0 Yes 650mg 650 mg, Un linsey en 6-05 Oral, ity of (TYLENOL) 14:58: Q6HPRN, [place] tablet 650 36 Starting Medic al mg 12/10/20 Branch at 0958, Until Discontinu ed, Routine, Pain (scale 1-3) ondansetron 2020-0 2020- No 4mg 4 mg, Slow Univers (ZOFRAN 12-10 06-05 IV Push, ity of (PF)) 13:00: 12:15 ONCE, 1 [place] injection 4 00 :00 dose, Sat Med ical mg 12/10/20 at Branch 0800, JOJO NaCl 0.9% No 1000mL at 999 Uni vers (NS) bolus 12-10 06-05 mL/hr, ity of infusion 12:00: 12:15 1,000 mL, Antoine as 1,000 mL 00 :00 IV Medical Infusion, Branch ONCE, 1 dose, 12/10/20 at 0700, JOJO chlorhexidi 0 Yes [id number] 15mL Swish and Univers ne 0.12 % 5-17 spit out ity of mouthwash 00:00: 15 mL 2 [place] 00 (two) Medical times Branch daily. methylPREDN 0 Yes [id number] Take by Univers ISolone 5-17 mouth ity of (MEDROL, 00:00: SEE-INSTRU Antoine as TRAV,) 4 mg 00 CTIONS. Medica l tablets follow Branch package directions acetaminoph Yes [id number] 1{tbl} Take 1 Un linsey en-codeine 5-17 tablet by ity of (TYLENOL-CO 00:00: mouth [place] DEINE #3) 00 every 4 Medical 300-30 mg (four) Branch tablet hours as needed for Pain (scale 7-10). Indication s: acute pain ondansetron Yes [id number] 4mg Take 1 Univers 4 mg 5-17 tablet by ity of disintegrat 00:00: mouth [place] ing tablet 00 every 8 Medica l (eight) Branch hours as needed for Nausea and Vomiting (N/V). chlorhexidi 0 Yes [id number] 15mL Swish and Univers ne 0.12 % 5-17 spit out ity of mouthwash 00:00: 15 mL 2 [place] 00 (two) Medical times Branch daily. methylPREDN 2020-0 Yes [id number] Take by Univers ISolone 5-17 mouth ity of (MEDROL, 00:00: SEE-INSTRU Antoine as TRAV,) 4 mg 00 CTIONS. Medica l tablets follow Branch package directions acetaminoph Yes [id number] 1{tbl} Take 1 Un linsey en-codeine 5-17 tablet by ity of (TYLENOL-CO 00:00: mouth [place] DEINE #3) 00 every 4 Medical 300-30 mg (four) Branch tablet hours as needed for Pain (scale 7-10). Indication s: acute pain ondansetron Yes [id number] 4mg Take 1 Univers 4 mg 5-17 tablet by ity of disintegrat 00:00: mouth [place] ing tablet 00 every 8 Medica l (eight) Branch hours as needed for Nausea and Vomiting (N/V). chlorhexidi 2020- No [id number] 15mL Swish and Univers ne 0.12 % -17 06-05 spit out ity o f mouthwash 00:00: 00:00 15 mL 2 [place] 00 :00 (two) Medical times Branch daily. methylPREDN 2020- No [id number] Take by Univers ISolone -17 06-05 mouth ity of (MEDROL, 00:00: 00:00 [place]-INSTRU [place] TRAV,) 4 mg 00 :00 CTIONS. Medica l tablets follow Branch package directions acetaminoph 2020- No [id number] 1{tbl} Take 1 U nivers en-codeine 5-17 06-05 tablet by ity of (TYLENOL-CO 00:00: 00:00 [place] DEINE #3) 00 :00 every 4 Medical 300-30 mg (four) Branch tablet hours as needed for Pain (scale 7-10). Indication s: acute pain ondansetron 2020- No [id number] 4mg Take 1 Univers 4 mg 5-17 06-05 tablet by ity of disintegrat 00:00: 00:00 [place] ing tablet 00 :00 every 8 Medica l (eight) Branch hours as needed for Nausea and Vomiting (N/V). clindamycin 2020- No [id number] 300mg Take 2 Univers 150 mg 5-17 05-25 capsules ity of capsule 00:00: 04:59 by mouth 4 [place] as 00 :00 (four) Medical times Branch daily for 7 days. azithromyci Yes [id number] 250mg Take 1 Univers n 4-10 tablet by ity of (ZITHROMAX 00:00: mouth [place] Z-TRAV) 250 00 SEE-INSTRU Med ical mg tablet CTIONS. Branch Take 500 mg day 1, then 250 mg days 2 to 5. dextrometho Yes [id number] 10mL Take 10 mL Univers rphan-guaif 4-10 by mouth ity of enesin 00:00: every 6 [place] 10-100 mg/5 00 (six) Medical mL solution hours as Bran ch needed for Cough. ibuprofen Yes [id number] 800mg Take 1 U nivers 800 mg 4-10 tablet by ity of tablet 00:00: mouth [place] 00 every 8 Medical (eight) Branch hours. azithromyci Yes [id number] 250mg Take 1 Univers n 4-10 tablet by ity of (ZITHROMAX 00:00: mouth [place] Z-TRAV) 250 00 SEE-INSTRU Med ical mg tablet CTIONS. Branch Take 500 mg day 1, then 250 mg days 2 to 5. dextrometho Yes [id number] 10mL Take 10 mL Univers rphan-guaif 4-10 by mouth ity of enesin 00:00: every 6 [place] 10-100 mg/5 00 (six) Medical mL solution hours as Bran ch needed for Cough. ibuprofen Yes [id number] 800mg Take 1 U nivers 800 mg 4-10 tablet by ity of tablet 00:00: mouth [place] 00 every 8 Medical (eight) Branch hours. azithromyci 2020- No [id number] 250mg Take 1 Univers n 4-10 06-05 tablet by ity of (ZITHROMAX 00:00: 00:00 mouth [place] Z-TRAV) 250 00 :00 SEE-INSTRU Med ical mg tablet CTIONS. Branch Take 500 mg day 1, then 250 mg days 2 to 5. dextrometho 2020- No [id number] 10mL Take 10 mL Univers rphan-guaif 4-10 06-05 by mouth ity of enesin 00:00: 00:00 every 6 [place] 10-100 mg/5 00 :00 (six) Medical mL solution hours as Bran ch needed for Cough. ibuprofen 2020- No [id number] 800mg Take 1 Univers 800 mg 4-10 06-05 tablet by ity of tablet 00:00: 00:00 mouth [place] 00 :00 every 8 Medical (eight) Branch hours. cyclobenzap 2017-07 Yes 5mg Take 1 Univ ers rine 5 mg 0-31 tablet by ity o f tablet 00:00: mouth 3 [place] 00 (three) Medical times Branch daily. cyclobenzap 2017-07 Yes 5mg Take 1 Univ ers rine 5 mg 0-31 tablet by ity o f tablet 00:00: mouth 3 [place] 00 (three) Medical times Branch daily. cyclobenzap 2017-07 No 5mg Take 1 Uni vers rine 5 mg 0-31 06-05 tablet by ity of tablet 00:00: 00:00 mouth 3 [place] 00 :00 (three) Medical times Branch daily. CATAFLAM 50 2014-07 Yes 50mg Take 1 Tab Univers mg tablet 1-18 by mouth 3 ity of 00:00: (three) [place] 00 times Medical daily. Branch CATAFLAM 50 2014-07 Yes 50mg Take 1 Tab Univers mg tablet 1-18 by mouth 3 ity of 00:00: (three) [place] 00 times Medical daily. Branch CATAFLAM 50 2014-07 No 50mg Take 1 Tab Univers mg tablet 1-18 06-05 by mouth 3 ity of 00:00: 00:00 (three) [place] 00 :00 times Medical daily. Branch Vital Signs Vital Name Observation Time Observation Value Comments Source Systolic blood 2021-01-07 159 mm[Hg] hysterically University of pressure 18:03:00 crying and moving [facility] Diastolic blood 2021-01-07 128 mm[Hg] hysterically University o f pressure 18:03:00 crying and moving [facility] Heart rate 2021-01-07 109 /min [facility] 18:03:00 [facility] Body temperature 2021-01-07 37.72 Annabella [facility] 18:03:00 [facility] Respiratory rate 2021-01-07 18 /min [facility] 18:03:00 [facility] Body weight 2021-01-07 113.399 kg [facility] 18:03:00 [facility] BMI 2021-01-07 32.10 kg/m2 [facility] 18:03:00 [facility] Oxygen saturation 2021-01-07 100 /min [facility] in Arterial blood 18:03:00 [facility] by Pulse oximetry Branch Systolic blood 2021-01-07 159 mm[Hg] hysterically University of pressure 18:03:00 crying and moving [place] [facility] Branch Diastolic blood 2021-01-07 128 mm[Hg] hysterically University o f pressure 18:03:00 crying and moving [place] [facility] Branch Heart rate 2021-01-07 109 /min University of 18:03:00 [facility] Branch Body temperature 2021-01-07 37.72 Annabella University of 18:03:00 [place] [facility] Respiratory rate 2021-01-07 18 /min University of 18:03:00 [facility] Body weight 2021-01-07 113.399 kg University of 18:03:00 [facility] BMI 2021-01-07 32.10 kg/m2 University of 18:03:00 [facility] Oxygen saturation 2021-01-07 100 /min University of in Arterial blood 18:03:00 [facility] by Pulse oximetry Branch Systolic blood 2020-12-28 129 mm[Hg] University of pressure 19:00:00 [facility] Branch Diastolic blood 2020-12-28 83 mm[Hg] University o f pressure 19:00:00 [facility] Branch Heart rate 2020-12-28 71 /min University of 19:00:00 [facility] Branch Respiratory rate 2020-12-28 16 /min University of :00:00 [facility] Oxygen saturation 2020-12-28 100 /min University of in Arterial blood 19:00:00 [facility] by Pulse oximetry Branch Body temperature 2020-12-28 36.28 Annabella University of 17:10:00 [facility] Branch Body height 2020-12-28 188 cm University of 17:10:00 [facility] Body weight 2020-12-28 113.399 kg University of 17:10:00 [facility] BMI 2020-12-28 32.10 kg/m2 University of 17:10:00 [place] [facility] Systolic blood 2020-12-28 129 mm[Hg] University of pressure 19:00:00 [place] [facility] Diastolic blood 2020-12-28 83 mm[Hg] University o f pressure 19:00:00 [place] [facility] Heart rate 2020-12-28 71 /min University of 19:00:00 [place] [facility] Respiratory rate 2020-12-28 16 /min University of 19:00:00 [facility] Oxygen saturation 2020-12-28 100 /min University of in Arterial blood 19:00:00 [facility] [place] as[facility] by Pulse oximetry Branch Body temperature 2020-12-28 36.28 Annabella University of 17:10:00 [facility] Body height 2020-12-28 188 cm University of 17:10:00 [facility] Body weight 2020-12-28 113.399 kg University of 17:10:00 [facility] BMI 2020-12-28 32.10 kg/m2 University of 17:10:00 [facility] Systolic blood 2020-12-10 123 mm[Hg] University of pressure 20:25:00 [facility] Branch Diastolic blood 2020-12-10 81 mm[Hg] University o f pressure 20:25:00 [facility] Heart rate 2020-12-10 66 /min University of 20:25:00 [facility] Respiratory rate 2020-12-10 14 /min University of 20:25:00 [facility] Oxygen saturation 2020-12-10 99 /min University of in Arterial blood 20:25:00 [facility] [place] [facility] by Pulse oximetry Branch Body temperature 2020-12-10 37.22 Annabella University of 16:12:00 [facility] Body height 2020-12-10 188 cm University of 15:41:00 [facility] Body weight 2020-12-10 99.474 kg University of 15:41:00 [facility] BMI 2020-12-10 28.16 kg/m2 University of 15:41:00 [facility] Systolic blood 2020-12-10 123 mm[Hg] University of pressure 20:25:00 [facility] Diastolic blood 2020-12-10 81 mm[Hg] University o f pressure 20:25:00 [facility] Heart rate 2020-12-10 66 /min University of 20:25:00 [facility] Respiratory rate 2020-12-10 14 /min University of 20:25:00 [facility] Oxygen saturation 2020-12-10 99 /min University of in Arterial blood 20:25:00 [facility] [place] [facility] by Pulse oximetry Branch Body temperature 2020-12-10 37.22 Annabella University of 16:12:00 [facility] Body height 2020-12-10 188 cm University of 15:41:00 [facility] Body weight 2020-12-10 99.474 kg University of 15:41:00 [facility] BMI 2020-12-10 28.16 kg/m2 University of 15:41:00 [facility] Systolic blood 2020-11-21 159 mm[Hg] University of pressure 13:01:00 [facility] Diastolic blood 2020-11-21 100 mm[Hg] University o f pressure 13:01:00 [facility] Heart rate 2020-11-21 72 /min University of 13:01:00 [facility] Body temperature 2020-11-21 36.61 Annabella University of 13:01:00 [facility] Respiratory rate 2020-11-21 18 /min University of 13:01:00 [facility] Body weight 2020-11-21 97.523 kg University of 13:01:00 [facility] BMI 2020-11-21 27.60 kg/m2 University of 13:01:00 [facility] Oxygen saturation 2020-11-21 100 /min University of in Arterial blood 13:01:00 [facility] [place] asia by Pulse oximetry Branch Systolic blood 2020-11-21 159 mm[Hg] University of pressure 13:01:00 [facility] Diastolic blood 2020-11-21 100 mm[Hg] University o f pressure 13:01:00 [facility] Heart rate 2020-11-21 72 /min University of 13:01:00 [facility] Body temperature 2020-11-21 36.61 Annabella University of 13:01:00 [facility] Respiratory rate 2020-11-21 18 /min University of 13:01:00 [facility] Body weight 2020-11-21 97.523 kg University of 13:01:00 [facility] BMI 2020-11-21 27.60 kg/m2 University of 13:01:00 [facility] Oxygen saturation 2020-11-21 100 /min University of in Arterial blood 13:01:00 [facility] [place] [facility] by Pulse oximetry Branch Procedures Procedure Date / Time Performing Clinician Source Performed CONSENT/REFUSAL FOR 2021-01-07 17:59:07 Doctor Unassigned, [facility] Name Medical Branch CT ABDOMEN PELVIS W 2020-12-28 18:45:34 Alvarez Archer [facility] [place] CONTRAST Medical Branch LIPASE 2020-12-28 17:39:00 Gianni, K [facility] COMP. METABOLIC PANEL 2020-12-28 17:39:00 Alvarez Archer Carol [facility] ([id number]) Medical Branch CBC WITH DIFF 2020-12-28 17:39:00 Alvarez Archer [facility] URINALYSIS 2020-12-28 17:39:00 Alvarez Archer [facility] CONSENT/REFUSAL FOR 2020-12-28 16:58:57 Doctor Unassigned, No Un [facility] DIAGNOSIS AND TREATMENT Name Medical Branch PROTHROMBIN TIME / INR 2020-12-10 15:10:00 Barrington Berman [facility] ACTIVATED PARTIAL 2020-12-10 15:10:00 aBrrington Berman [facility] THRMPLAS [facility] URINE DRUG (IMMUNOASSAY) 2020-12-10 13:45:00 Barrington Berman [facility] DRUG Medical [facility] SCREEN URINALYSIS 2020-12-10 13:45:00 Barrington Berman [facility] COVID-19 (ID NOW RAPID 2020-12-10 12:46:00 Barrington Berman [facility] TESTING) [facility] SALICYLATE 2020-12-10 12:18:00 Barrington Berman [facility] hospital LACTIC ACID WHOLE BLOOD 2020-12-10 12:15:00 Barrington Berman [facility] LIPASE 2020-12-10 12:13:00 Barrington Berman [facility] MAGNESIUM 2020-12-10 12:13:00 Barrington Berman [facility] HEPATIC FUNCTION PANEL 2020-12-10 12:13:00 Barrington Berman [facility] ([id number]) (ALB,T.PRO,BILI [facility] Branch T,BU/BC,ALT,AST,ALK PHOS) BASIC METABOLIC PANEL 2020-12-10 12:13:00 Barrington Berman [facility] (NA, K, CL, CO2, Medical Branch GLUCOSE, BUN, CREATININE, CA) ETHANOL 2020-12-10 12:13:00 Barrington Berman [facility] CBC WITH DIFF 2020-12-10 12:13:00 Barrington Berman [facility] Branch HB ECG ROUTINE & RHYTHM 2020-12-10 12:01:59 Barrington Berman [facility] CONSENT/REFUSAL FOR 2020-12-10 11:46:13 Doctor Unassigned, No Un iversity [facility] DIAGNOSIS AND TREATMENT Name [facility] NOTICE OF PRIVACY 2020-11-21 12:58:09 Doctor Unassigned, No Univ [facility] PRACTICES Name [facility] Branch CONSENT/REFUSAL FOR 2020-11-21 12:57:43 Doctor Unassigned, No [facility] Encounters Start End Encounter Admission Attending Care Care Encounter Source Date/Time Date/Time Type Type Clinicians Facility Department ID 2021-01-07 2021-01-07 Emergency [facility] [id number] 13:07:00 13:25:00 Thi Wall [id number] [place] [id number] [place] [id number] [facility] 2021-01-07 2021-01-07 [facility] [id number] [facility] 13:07:00 13:25:00 Thi Wall [id number] ity of [place] [id number] [facility] [id number] [facility] 084 [place] 2021-01-07 2021-01-07 Emergency X [facility] ERT [id number] Univers 12:59:00 12:59:00 ity of [facility] 2021-01-07 2021-01-07 Orders Doctor FIELDS [id number] 00:00:00 00:00:00 Only Unassigned, MANDY [id number] [facility] [id number] 2021-01-07 2021-01-07 Orders Doctor FIELDS [id number] Univers 00:00:00 00:00:00 Only Unassigned, MANDY [id number] ity of [facility] [id number] [facility] [id number] [facility] 009 Branch 2020-12-28 2020-12-28 Emergency Gianni, K [facility] [id number] 12:12:00 14:45:00 Carol Mae [id number] [place] [id number] [place] [id number] 2020-12-28 2020-12-28 Emergency Alvarez Archer [facility] [id number] Univers 12:12:00 14:45:00 Carol Mae [id number] i ty of [place] [id number] [facility] [id number] [address] 2020-12-28 2020-12-28 Emergency X [facility] ERT [id number] Univers 11:59:00 11:59:00 ity [facility] 2020-12-10 2020-12-10 Emergency Cullen Barrington [facility] 1.2.840. 114 [id number] 06:50:00 15:30:00 Raymundo Dexter [id number] [place] [id number] [place] [id number] [id number] 2020-12-10 2020-12-10 Emergency Barrington Berman [facility] 1.2.840. 114 [id number] Univers 06:50:00 15:30:00 Raymundo Dexter [id number] ity [place] [id number] [facility] [id number] [address] 2020-12-10 2020-12-10 Emergency X [facility] ERT [id number] Univers 06:47:00 06:47:00 ity [facility] 2020-12-10 2020-12-10 Orders Doctor FIELDS 1.2.840.114 [id number] 00:00:00 00:00:00 Only UnassignedMANDY [id number] [facility] [id number] [id number] 2020-12-10 2020-12-10 Orders Doctor FIELDS 1.2.840.114 [id number] Univers 00:00:00 00:00:00 Only UnassignedMANDY [id number] ity of [facility] [id number] [facility] [id number] [facility] 009 [place] 2020-11-21 2020-11-21 Emergency Roque, [facility] [id number] Univers 08:03:00 08:39:00 Saima Wall [id number] [facility] [id number] [facility] [id number] [facility] 084 Branch 2020-11-21 2020-11-21 Emergency Roque, [facility] [id number] 08:03:00 08:39:00 Saima Wall [id number] [place] [id number] [place] [id number] 08 2020-11-21 2020-11-21 Emergency X ROQUE, [facility] ERT [id number] Univers 08:03:00 08:03:00 [facility] Test Test Results Result Source Description Time Comments Comments CT ABDOMEN 2020-12 CT Abdomen and Pelvis with Pierce PELVIS W -23 intravenous contrast. [facility] CONTRAST 18:54:5 HISTORY: Abdominal Medica l 8 abscess/infection. DOSE: [place] Up-to-date CT equipment and radiation dose reduction techniques wereemployed. CTDIvol: 8.13 mGy. DLP: 450 mGy-cm. TECHNIQUE : Contiguous axial imaging from the level of the lung basesthrough the pubic symphysis were performed after the uncomplicatedadministration of nonionic contrast material. ?Coronal and sagittalreconstructions were obtained. Auto mA and/or iterative reconstruction wereused to reduce radiation dose. FINDINGS: ? Lower lungs: Clear. No pleural effusion or pericardial effusion. Liver, Gallbladder and Spleen: Liver is 15.9 cm in length and spleenmeasures approximately 12.2 x 4.4 cm. No focal lesions visualized in theliver or in the spleen. No calcified gallstones. Biliary ducts and thepancreatic duct appear of normal size. Peritoneum: ?No free air or free fluid. Scattered lymph nodes are seenthroughout small bowel mesentery extending toward right lower quadrant ofthe abdomen. Pancreas and Adrenals: ?Unremarkable pancreas and adrenal glands. Kidneys and Ureters: ?No visible calculi in the renal collecting systems. No hydroureter or hydronephrosis. No enhancing kidney lesions detected. Vessels: Normal. Retroperitoneum: No abnormal fluid or lymphadenopathy. Bowel: Large of a normal-sized appendix noted without any acute changes ofappendicitis. Mild constipation, mild generalized diverticulosis of largebowel noted without any acute changes. Bladder and Reproductive Organs: Unremarkable unopacified urinary bladder. Bones: Schmorl's nodes are seen in lower thoracic and upper lumbarvertebral endplates secondary to remote axial loading trauma. Smallhemangioma noted in T11 vertebral body. Soft tissues: Unremarkable. CONCLUSION: Mesenteric adenitis is noted, otherwise no acuteintra-abdominal or pelvic abnormalities. [facility], Radiant Results Inft User - 12/28/2020 1:[address] Abdomen and Pelvis with intravenous contrast.CLINICAL HISTORY: Abdominal abscess/infection.DOSE: Up-to-date CT equipment and radiation dose reduction techniques wereemployed. CTDIvol: 8.13 mGy. DLP: 450 mGy-cm.TECHNIQUE : Contiguous axial imaging from the level of the lung basesthrough the pubic symphysis were performed after the uncomplicatedadministration of nonionic contrast material. Coronal and sagittalreconstructions were obtained. Auto mA and/or iterative reconstruction wereused to reduce radiation dose.FINDINGS: Lower lungs: Clear. No pleural effusion or pericardial effusion.Liver, Gallbladder and Spleen: Liver is 15.9 cm in length and spleenmeasures approximately 12.2 x 4.4 cm. No focal lesions visualized in theliver or in the spleen. No calcified gallstones. Biliary ducts and thepancreatic duct appear of normal size.Peritoneum: No free air or free fluid. Scattered lymph nodes are seenthroughout small bowel mesentery extending toward right lower quadrant ofthe abdomen.Pancreas and Adrenals: Unremarkable pancreas and adrenal glands.Kidneys and Ureters: No visible calculi in the renal collecting systems. No hydroureter or hydronephrosis. No enhancing kidney lesions detected. Vessels: Normal.Retroperitoneum: No abnormal fluid or lymphadenopathy.Bowel: Large of a normal-sized appendix noted without any acute changes ofappendicitis. Mild constipation, mild generalized diverticulosis of largebowel noted without any acute changes.Bladder and Reproductive Organs: Unremarkable unopacified urinary bladder.Bones: Schmorl's nodes are seen in lower thoracic and upper lumbarvertebral endplates secondary to remote axial loading trauma. Smallhemangioma noted in T11 vertebral body.Soft tissues: Unremarkable.CONCLUSION: Mesenteric adenitis is noted, otherwise no acuteintra-abdominal or pelvic abnormalities. URINALYSIS 2020-12-28 18:02:33 Test Item Value Reference Range Interpretation Comme nts APPEARANCE (test code = Clear Clear 5166768493) COLOR (test code = 7532789113) Yellow Yellow PH (test code = 7522004562) 4.8-8.0 SP GRAVITY (test code = 1.003-1.030 7127295816) GLU U QUAL (test code = Normal Normal 8840501505) BLOOD (test code = 5938997352) Negative Negative KETONES (test code = 2759714414) Negative Negative PROTEIN (test code = 2887-8) Negative Negative UROBILIN (test code = Normal Normal 9827725304) BILIRUBIN (test code = Negative Negative 6631193775) NITRITE (test code = 6959326757) Negative Negative LEUK MITALI (test code = Negative Negative 2737805404) RBC/HPF (test code = 5438147304) See_Comment [Automated message] The system which ge nerated this result transmit nazia reference range: 0 - 3 HP F. The reference range was not used to interpret th is result as normal/abnormal . WBC/HPF (test code = 7773234500) See_Comment [Automated message] The system which ge nerated this result transmit nazia reference range: 0 - 5 HP F. The reference range was not used to interpret th is result as normal/abnormal . BACTERIA (test code = Negative Negative 8597193926) MUCOUS (test code = 3877828673) Slight Negative LPF A Lab Interpretation (test code = Abnormal 03820-1) [facility]. METABOLIC PANEL (93739)2020-12-28 17:57:13 Test Item Value Reference Range Interpretation Comments NA (test code = 142 mmol/L 135-145 1160247320) K (test code = 4.5 mmol/L 3.5-5.0 8977525124) CL (test code = 104 mmol/L 98-108 6707907709) CO2 TOTAL (test code 29 mmol/L 23-31 = 6660048065) AGAP (test code = 2-16 4802128808) BUN (test code = 13 mg/dL 7-23 0573075463) GLUCOSE (test code = 101 mg/dL 70-110 4389683265) CREATININE (test code 0.92 mg/dL 0.60-1.25 = 2648339648) TOTAL BILI (test code 0.5 mg/dL 0.1-1.1 = 8009692396) CALCIUM (test code = 9.9 mg/dL 8.6-10.6 5175833895) T PROTEIN (test code 8.0 g/dL 6.3-8.2 = 8932250193) ALBUMIN (test code = 4.8 g/dL 3.5-5.0 8403102080) ALK PHOS (test code = 61 U/L 34-122 1341933947) ALTv (test code = 47 U/L 5-50 1742-6) AST(SGOT) (test code 37 U/L 13-40 = 8978978015) eGFR (test code = mL/min/1.73m2 4987058683) DESIREE (test code = DESIREE) Association of Glomerular Filtration Rate (GFR) and Staging of Kidney Disease* + + +- +| GFR (mL/min/1.73 m2) ?| With Kidney Damage ?| ?Without Kidney Damage+ ------+ ----+ ------+| ?>90 ?| ?Stage one ?| ? Normal ?+ -+ + -+| ?60-89 ?| ?Stage two ?| ? Decreased GFR ? + + +- +| ?30-59 ?| ?Stage three ?| ? Stage three ? + + +- +| ?15-29 ?| ?Stage four ? | ? Stage four ?+ -+ + -+| ?<15 (or dialysis) ? ?| ?Stage five ? | ? Stage five ?+ -+ + -+ *Each stage assumes the associated GFR level has been in effect for at least three months. ?Stages 1 to 5, with or without kidney disease, indicate chronic kidney disease. Notes: Determination of stages one and two (with eGFR >59mL/min/1.73 m2) requires estimation of kidney damage for at least three months as defined by structural or functional abnormalities of the kidney, manifested by either:Pathological abnormalities or Markers of kidney damage (including abnormalities in the composition of the blood or urine or abnormalities in imaging tests). [facility] 17:56:33 Test Item Value Reference Range Interpretation Comments LIPASE (test code = 9402676672) 328 U/L 0-220 H Lab Interpretation (test code = Abnormal 74647-4) [facility] CenterCBC WITH [id number] 17:51:55 Test Item Value Reference Range Interpretation Comments WBC (test code = See_Comment [Automated 6690-2) message] The sy stem which generated this result transmitted reference range : 4.20 - 10.70 10*3/?L. The reference range was not used to interpret this result as normal/abnormal . RBC (test code = See_Comment [Automated 789-8) message] The sy stem which generated this result transmitted reference range : 4.26 - 5.52 10*6/?L. The reference range was not used to interpret this result as normal/abnormal . HGB (test code = 15.9 g/dL 12.2-16.4 718-7) HCT (test code = 46.4 % 38.4-49.3 4544-3) MCV (test code = 87.1 fL 81.7-95.6 787-2) MCH (test code = 29.8 pg 26.1-32.7 785-6) MCHC (test code = 34.3 g/dL 31.2-35.0 786-4) RDW-SD (test code = 38.7 fL 38.5-51.6 49926-9) RDW-CV (test code = 12.2 % 12.1-15.4 788-0) PLT (test code = See_Comment [Automated 777-3) message] The sy stem which generated this result transmitted reference range : 150 - 328 10*3/ ?L. The reference r lucila was not used to interpret this result as normal/abnormal . MPV (test code = 9.3 fL 9.8-13.0 L 87994-3) NRBC/100 WBC (test See_Comment [Automat ed code = 2816438196) message] The system which generated this result transmitted reference range : 0.0 - 10.0 /100 WBCs. The refer ence range was not u sed to interpret th is result as normal/abnormal . NRBC x10^3 (test code <0.01 See_Comment [Auto mated = 4126773152) message] The s ystem which generated this result transmitted reference range : 10*3/?L. The reference range was not used to interpret this result as normal/abnormal . GRAN MAT (NEUT) % 53.5 % (test code = 770-8) IMM GRAN % (test code 0.20 % = 7649883496) LYMPH % (test code = 34.2 % 736-9) MONO % (test code = 9.6 % 5905-5) EOS % (test code = 2.1 % 713-8) BASO % (test code = 0.4 % 706-2) GRAN MAT x10^3(ANC) 2.56 10*3/uL 1.99-6.95 (test code = 4653576284) IMM GRAN x10^3 (test <0.03 0.00-0.06 code = 5563208069) LYMPH x10^3 (test code 1.64 10*3/uL 1.09-3.23 = 731-0) MONO x10^3 (test code 0.46 10*3/uL 0.36-1.02 = 742-7) EOS x10^3 (test code = 0.10 10*3/uL 0.06-0.53 711-2) BASO x10^3 (test code <0.03 0.01-0.09 = 704-7) Lab Interpretation Abnormal (test code = 69628-7) [facility]eraPTT20[facility] 15:42:57 Test Item Value Reference Range Interpretation Comments APTT Patient (test See_Comment [Automat ed code = 3173-2) message] The system which generated this result transmitted reference range : 23 - 38 Seconds . The reference range was not used to interpr et this result as normal/abnormal . DESIREE (test code = DESIREE) The [facility] patient population mean normal value for aPTT is 30 seconds. Lab Interpretation Normal (test code = 45497-4) [facility] CenterProthrombin Time (PT) / [id number] 15:40:16 Test Item Value Reference Range Interpretation Comments PROTIME PATIENT (test See_Comment [Auto mated message] code = 5964-2) The system [employer] generated this result transmitted ref erence range: 12.0 - 1 4.7 Seconds. The re ference range was not u sed to interpret this result as normal/abnor mal. INR (test code = 6301-6) Nor mal INR <1.1; Warfarin Therap eutic range 2.0 to 3. 0 or 2.5 to 3.5, dep ending upon the indica tions. Lab Interpretation (test Normal code = 66588-7) [facility] CenterUrinalysis2021-06-05 14:32:20 Test Item Value Reference Range Interpretation Comments APPEARANCE (test code = Hazy Clear A 6827619170) COLOR (test code = Shellie Yellow A 1887354528) PH (test code = 4.8-8.0 3039586447) SP GRAVITY (test code = 1.003-1.030 H 2721034801) GLU U QUAL (test code = Normal Normal 3181120348) BLOOD (test code = Negative Negative 5775923445) KETONES (test code = Negative Negative 2055615416) PROTEIN (test code = Negative Negative 2887-8) UROBILIN (test code = Normal Normal 8121612021) BILIRUBIN (test code = Negative Negative 3630456715) NITRITE (test code = Negative Negative 6928860663) LEUK MITALI (test code = Negative Negative 9898877322) RBC/HPF (test code = See_Comment [Autom ated message] 2581279771) The system [employer] generated this result transmitted ref erence range: 0 - 3 HP F. The reference range was not used to int erpret this result as normal/abnormal . WBC/HPF (test code = See_Comment [Autom ated message] 2939977854) The system [employer] generated this result transmitted ref erence range: 0 - 5 HP F. The reference range was not used to int erpret this result as normal/abnormal . BACTERIA (test code = Few Negative A 2904232180) MUCOUS (test code = Marked Negative LPF A 4953588539) SQ EPITH (test code = <1 HPF 4326868915) Lab Interpretation (test Abnormal code = 12573-4) [facility] CenterURINE DRUG (IMMUNOASSAY) - COMPREHENSIVE DRUG [id number] 14:30:54 Test Item Value Reference Range Interpretation Comments AMPHET (test code = Negative Negative 2262778207) REBECA U (test code = Negative Negative 3788857989) BENZO U (test code = Negative Negative 1027520654) Cocaine Metabolite (test Negative Negative code = 6242477313) METHADONE (test code = Negative Negative 5026460098) OPIATES (test code = Negative Negative 3961638510) PCP (test code = Negative Negative 8370658747) THC (test code = Presumptive Positive Negative A 3068077824) DESIREE (test code = DESIREE) Urine Drug Cutoff Ranges Cocaine: ? 150 ng/mLBenzodiazepines: ? ? 200 ng/mLMethadone: ? 300 ng/mLAmphetamine: ? 1,000 ng/mLOpiates: ? 300 ng/mLCannabinoids: ?50 ng/mLPhencyclidine: ? ? ? 25 ng/mLBarbiturates: ?200 ng/mL The results are to be used only for medical (i.e., treatment) purposes. Unconfirmed screening results must not be used for non-medical purposes (e.g., employment testing, legal testing). Lab Interpretation (test Abnormal code = 58302-5) [facility] CenterSALICYLATE2021-06-05 13:41:52 Test Item Value Reference Range Interpretation Comments SALICYLATE (test code <10 mg/L = 1023148686) DESIREE (test code = DESIREE) Therapeutic Range: ? Analgesic and Antipyretic Use ? 20-100 mg/L ? ? Anti-Inflammatory Use ? 100-250 mg/L Toxic Range: ? Greater than 300 mg/L [facility] CenterACETAMINOPHEN2021-06-05 13:41:52 Test Item Value Reference Range Interpretation Comments ACETAMINOP (test code = <10.0 10.0-30.0 L 2437401940) DESIREE (test code = DESIREE) Toxic: Greater than 200 ug/mL @ 4 hour post ingestion or greater than 50 ug/mL @ 12 hour post ingestion Lab Interpretation (test Abnormal code = 50161-3) [facility] CenterCOVID-19 (ID NOW RAPID TESTING)2020-12-10 13:13:08 Test Item Value Reference Range Interpretation Comments SARS-CoV-2 Rapid ID NOW Not Detected Not Detected (test code = 08749-3) DESIREE (test code = DESIREE) ID NOW COVID-19 Assay is an isothermal nucleic acid amplification test intended for the qualitative detection of nucleic acid from SARS-CoV-2 viral RNA in nasopharyngeal ([employer]) specimens. It is used under Emergency Use Authorization (EUA) by FDA. The limit of detection (LOD) of the assay is 125 Genome Equivalents/mL. A positive result is indicative of the presence of SARS-CoV-2 RNA. ?Clinical correlation with patient history and other diagnostic information is necessary to determine patient infection status. A negative (Not Detected) result does not preclude SARS-CoV-2 infection. In patients with clinical symptoms and other tests that are consistent with SARS-CoV-2 infection, negative results should be treated as presumptive negative and a new specimen should be tested with alternative PCR molecular test. Invalid: Please collect a new specimen for repeat patient testing if clinically indicated. Lab Interpretation Normal (test code = 77431-9) [facility] CenterETHANOL2021-06-05 13:08:25 Test Item Value Reference Range Interpretation Comments ALCOHOL (test code = <10 mg/dL 2319968039) DESIREE (test code = DESIREE) <10 Vagfrpaq53-549 Toxic>100 Depression of BENEFITS ADVISOR>400 Fatalities Reported [facility] CenterLactic Acid Whole [id number] 12:41:49 Test Item Value Reference Range Interpretation Comments LACTIC ACID (test code = 1.89 mmol/L 0.50-2.20 1431183084) Lab Interpretation (test code = Normal 39233-5) [facility] CenterMAGNESIUM2021-06-05 12:38:27 Test Item Value Reference Range Interpretation Comments MAGNESIUM (test code = 3510739015) 1.7 mg/dL 1.7-2.4 Lab Interpretation (test code = Normal 41858-4) [facility] CenterHepatic Function Panel (ALB, T.PRO, BILI T, BU/BC, ALT, AST, ALK PHOS)2020-12-10 12:38:07 Test Item Value Reference Range Interpretation Comments TOTAL BILI (test code = 7735671900) 0.8 mg/dL 0.1-1.1 BILI UNCON (test code = 8631441383) 0.6 mg/dL 0.1-1.1 BILI CONJ (test code = 1155769078) 0.0 mg/dL 0.0-0.3 T PROTEIN (test code = 0342632534) 8.4 g/dL 6.3-8.2 H ALBUMIN (test code = 3629437089) 5.2 g/dL 3.5-5.0 H ALK PHOS (test code = 2144528181) 69 U/L 34-122 ALTv (test code = 1742-6) 39 U/L 5-50 AST(SGOT) (test code = 0932010515) 36 U/L 13-40 Lab Interpretation (test code = Abnormal 17018-4) [facility] Metabolic Panel (NA, K, CL, CO2, GLUCOSE, BUN, CREATININE, CA)2020-12-10 12:37:47 Test Item Value Reference Range Interpretation Comments NA (test code = 141 mmol/L 135-145 3985345025) K (test code = 3.7 mmol/L 3.5-5.0 7283837134) CL (test code = 105 mmol/L 98-108 5597963598) CO2 TOTAL (test code = 27 mmol/L 23-31 4955205719) AGAP (test code = 2-16 6599874272) BUN (test code = 19 mg/dL 7-23 1560877126) GLUCOSE (test code = 128 mg/dL 70-110 H 8307524805) CREATININE (test code = 1.16 mg/dL 0.60-1.25 8587421038) CALCIUM (test code = 9.6 mg/dL 8.6-10.6 2302184373) eGFR (test code = mL/min/1.73m2 9967235011) DESIREE (test code = DESIREE) Association of Glomerular Filtration Rate (GFR) and Staging of Kidney Disease* + --+ --+ ------+| GFR (mL/min/1.73 m2) ?| With Kidney Damage ?| ?Without Kidney Damage+ --------+ --------+ +| ?>90 ?| ?Stage one ?| ? Normal ?+ ---+ ---+ -------+| ?60-89 ?| ?Stage two ?| ? Decreased GFR ? + --+ --+ ------+| ?30-59 ?| ?Stage three ?| ? Stage three ? + --+ --+ ------+| ?15-29 ?| ?Stage four ? | ? Stage four ?+ ---+ ---+ -------+| ?<15 (or dialysis) ? ?| ?Stage five ? | ? Stage five ?+ ---+ ---+ -------+ *Each stage assumes the associated GFR level has been in effect for at least three months. ?Stages 1 to 5, with or without kidney disease, indicate chronic kidney disease. Notes: Determination of stages one and two (with eGFR >59mL/min/1.73 m2) requires estimation of kidney damage for at least three months as defined by structural or functional abnormalities of the kidney, manifested by either:Pathological abnormalities or Markers of kidney damage (including abnormalities in the composition of the blood or urine or abnormalities in imaging tests). Lab Interpretation Abnormal (test code = 30809-4) [facility] CenterLipase [id number] 12:37:47 Test Item Value Reference Range Interpretation Comments LIPASE (test code = 4471222174) 241 U/L 0-220 H Lab Interpretation (test code = Abnormal 14980-1) [facility] CenterCBC with [id number] 12:25:07 Test Item Value Reference Range Interpretation Comments WBC (test code = See_Comment H [Automated 1490-2) message] The system which generated this result transmit nazia reference range : 4.20 - 10.70 10*3/?L. The reference range was not used to interpret this result as normal/abnormal . RBC (test code = See_Comment H [Automated 853-8) message] The system which generated this result transmit nazia reference range : 4.26 - 5.52 10*6/?L. The reference range was not used to interpret this result as normal/abnormal . HGB (test code = 16.8 g/dL 12.2-16.4 H 718-7) HCT (test code = 49.4 % 38.4-49.3 H 4544-3) MCV (test code = 87.1 fL 81.7-95.6 787-2) MCH (test code = 29.6 pg 26.1-32.7 785-6) MCHC (test code = 34.0 g/dL 31.2-35.0 786-4) RDW-SD (test code = 39.2 fL 38.5-51.6 12198-9) RDW-CV (test code = 12.3 % 12.1-15.4 788-0) PLT (test code = See_Comment [Automated 777-3) message] The system which generated this result transmit nazia reference range : 150 - 328 10*3/ ?L. The reference range was not u sed to interpret th is result as normal/abnormal . MPV (test code = 9.3 fL 9.8-13.0 L 46695-4) NRBC/100 WBC (test See_Comment [Automat ed code = 2335160534) message] The system which generated this result transmit nazia reference range : 0.0 - 10.0 /100 WBCs. The reference range was not used to interpret this result as normal/abnormal . NRBC x10^3 (test code <0.01 See_Comment [Auto mated = 0982916878) message] The system which generated this result transmit nazia reference range : 10*3/?L. The reference range was not used to interpret this result as normal/abnormal . GRAN MAT (NEUT) % 87.5 % (test code = 770-8) IMM GRAN % (test code 0.30 % = 6539202959) LYMPH % (test code = 5.2 % 736-9) MONO % (test code = 6.4 % 5905-5) EOS % (test code = 0.3 % 713-8) BASO % (test code = 0.3 % 706-2) GRAN MAT x10^3(ANC) 12.14 10*3/uL 1.99-6.95 H (test code = 0178339975) IMM GRAN x10^3 (test 0.04 10*3/uL 0.00-0.06 code = 7210041572) LYMPH x10^3 (test code 0.72 10*3/uL 1.09-3.23 L = 731-0) MONO x10^3 (test code 0.89 10*3/uL 0.36-1.02 = 742-7) EOS x10^3 (test code = 0.04 10*3/uL 0.06-0.53 L 711-2) BASO x10^3 (test code 0.04 10*3/uL 0.01-0.09 = 704-7) Lab Interpretation Abnormal (test code = 42742-6) [facility]"
[2021-07-14] MEDS ORDERED: LIDOCAINE 1% MPF 5 ML VIAL ONE (09:09)
--- NOTE | 2021-07-14 09:40 | RAD REPORT ---
EXAM DESCRIPTION: RAD - Hand Right 3 View - 07/14/2021 9:26 am CLINICAL HISTORY: R fourth finger lac;Pain COMPARISON: No comparisons FINDINGS: Soft tissue injury is evident along the ulna side of the fourth digit near the PIP joint a nd middle phalanx. There is a small focal bone defect along the ulna side base of the fourth middle p halanx indicating extension into the bone. No retained foreign body. No other acute or significant marshall ne or joint finding. IMPRESSION: A 2 mm bony defect is present ulna side base fourth middle phalanx where there is also o verlying soft tissue injury. This would indicate the object causing the laceration extended into the bone. No foreign body in the soft tissues.
[2021-07-14] MEDS ORDERED: TETANUS & DIPHTHERIA TOX,ADULT 0.5 ML VIAL ONE (09:58)
--- NOTE | 2021-07-14 10:15 | ER ---
Nurse's Notes [facility] Name: Ramiro Jay Age: 26 yrs Sex: Male : 1995 Arrival Date: 07/14/2021 Time: 08:36 Bed 10 Private MD: Diagnosis: Laceration without foreign body of finger without damage to nail Presentation: 07/14 08:38 Chief complaint: Patient states: i was using a table saw and cut my 4th finger on my tw2 left hand. it hurts fucking bad. Coronavirus screen: At this time, the client does not indicate any symptoms associated with coronavirus-19. Ebola Screen: Patient denies travel to an Ebola-affected area in the 21 days before illness onset. Initial Sepsis Screen: Does the patient meet any 2 criteria? No. Patient's initial sepsis screen is negative. Does the patient have a suspected source of infection? No. Patient's initial sepsis screen is negative. Risk Assessment: Do you want to hurt yourself or someone else? Patient reports no desire to harm self or others. Onset of symptoms was July 14, 2021. 08:38 Method Of Arrival: Ambulatory tw2 08:38 Acuity: MICHELA 4 tw2 Triage Assessment: 08:38 General: Appears uncomfortable, Behavior is cooperative, anxious. Pain: Complains of tw2 pain in dorsal aspect of middle phalanx of right ring finger, dorsal aspect of proximal phalanx of right ring finger, palmar aspect of middle phalanx of right ring finger and palmar aspect of proximal phalanx of right ring finger. Musculoskeletal: Range of motion: intact in all extremities. Injury Description: Laceration sustained to dorsal aspect of middle phalanx of right ring finger, dorsal aspect of proximal phalanx of right ring finger, palmar aspect of distal phalanx of right ring finger and palmar aspect of proximal phalanx of right ring finger is full thickness, not bleeding, was sustained less than 30 minutes ago. Historical: - Allergies: 08:44 No Known Allergies; tw2 - Home Meds: 08:44 Nexium Oral [Active]; tw2 - PMHx: 08:44 ADD/ADHD; Pancreatitis; tw2 - PSHx: 08:44 None; tw2 - Immunization history:: Adult Immunizations unknown, Last tetanus immunization: unknown. - Social history:: Smoking status: Patient denies any tobacco usage or history of. Patient uses street drugs, marijuana, "occasionally". Screenin:56 Abuse screen: Denies threats or abuse. Denies injuries from another. Nutritional 5 screening: No deficits noted. Tuberculosis screening: No symptoms or risk factors identified. Fall Risk None identified. Vital Signs: 08:38 BP 113 / 98; Pulse 97; Resp 22; Temp 97.9(O); Pulse Ox 98% on R/A; Weight 113.4 kg (R); tw2 Height 6 ft. 2 in. (187.96 cm); Pain 10/10; 08:38 Body Mass Index 32.10 (113.40 kg, 187.96 cm) tw2 ED Course: 08:36 Patient arrived in ED. am2 08:41 Triage completed. tw2 08:45 Arm band placed on. tw2 08:49 Prema Barrow, RN is Primary Nurse. 5 08:56 Patient has correct armband on for positive identification. Call light in reach. Side [facility] rails up X 1. 08:59 Fidencio Peace PA is PHCP. jr8 08:59 Johnson Garcia MD is Attending Physician. jr8 09:26 XRAY Hand RIGHT 3 View In Process Unspecified. EDMS 10:12 Jimenez Dias MD is Referral Physician. jr8 10:13 Dressings: non-adherent dressing x 1 right hand. Aluminum finger splint applied to mb4 right ring finger. Wound care: Patient tolerated well. 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 Exp: jr8 11/18/2022. Lot #: [id number]. } Route: IM; Site: left deltoid; Outcome: 10:14 Discharge ordered by . jr8 10:26 Patient left the ED. [facility] Signatures: Dispatcher [employer] EDMS Fidencio Peace PA PA jr8 Catrachita Lai RN RN tw2 Vandana Smith am2 Dana Agudelo mb4 Prema Barrow, AUDRA RN 5
--- NOTE | 2021-07-14 10:15 | EDPHYS ---
Physician Documentation [facility] Name: Ramiro Jay Age: 26 yrs Sex: Male : 1995 Arrival Date: 07/14/2021 Time: 08:36 Bed 10 Private MD: ED Physician Johnson Garcia HPI: 07/14 10:30 This 26 yrs old Male presents to ER via Ambulatory with complaints of Finger Injury. jr8 10:30 Onset: The symptoms/episode began/occurred acutely, today. Associated signs and jr8 symptoms: The patient has no apparent associated signs or symptoms. Severity of symptoms: At their worst the symptoms were moderate, in the emergency department the symptoms are unchanged. The patient has not experienced similar symptoms in the past. The patient has not recently seen a physician. This is a 26-year-old male patient that presented to the emergency room with complaints of laceration to his right ring finger. Patient stated that he was utilizing a table saw and accidentally cut his finger when the tablesaw jumped.. Historical: - Allergies: 08:44 No Known Allergies; tw2 - Home Meds: 08:44 Nexium Oral [Active]; tw2 - PMHx: 08:44 ADD/ADHD; Pancreatitis; tw2 - PSHx: 08:44 None; tw2 - Immunization history:: Adult Immunizations unknown, Last tetanus immunization: unknown. - Social history:: Smoking status: Patient denies any tobacco usage or history of. Patient uses street drugs, marijuana, "occasionally". ROS: 10:30 MS/extremity: Positive for laceration, pain, tenderness, of the right ring finger. jr8 10:30 Skin: Positive for laceration(s). 10:30 All other systems are negative. Exam: 10:30 Constitutional: This is a well developed, well nourished patient who is awake, alert, jr8 and in no acute distress. Cardiovascular: Regular rate and rhythm with a normal S1 and S2. No gallops, murmurs, or rubs. Normal PMI, no JVD. No pulse deficits. Respiratory: Lungs have equal breath sounds bilaterally, clear to auscultation and percussion. No rales, rhonchi or wheezes noted. No increased work of breathing, no retractions or nasal flaring. MS/ Extremity: Pulses equal, no cyanosis. Neurovascular intact. Full, normal range of motion. Neuro: Awake and alert, GCS 15, oriented to person, place, time, and situation. Cranial nerves II-XII grossly intact. Motor strength 5/5 in all extremities. Sensory grossly intact. 10:30 Skin: Patient has avulsion of skin to the medial aspect of the right ring finger. Proximately 3 cm angled laceration with flap noted to the proximal aspect of the right medial index finger. Sensation intact with normal cap refill. Full range of motion present but with pain.. Vital Signs: 08:38 BP 113 / 98; Pulse 97; Resp 22; Temp 97.9(O); Pulse Ox 98% on R/A; Weight 113.4 kg (R); tw2 Height 6 ft. 2 in. (187.96 cm); Pain 10; 08:38 Body Mass Index 32.10 (113.40 kg, 187.96 cm) tw2 Procedures: 10:10 Splinting: Splint applied to right ring finger using finger splint, applied by tech. jr8 Examined by me, post splint application: neurovascular intact, 2+ distal pulses palpable, brisk capillary refill noted, Patient tolerated well. Laceration: 10:10 Wound Repair of 3cm ( 1.2in ) subcutaneous laceration to palmar aspect of proximal jr8 phalanx of right ring finger. Irregularly shaped.. Skin/tissue flap noted.. Minimal bleeding noted.. Distal neuro/vascular/tendon intact. Anesthesia: Digital block administered with 4 mls of 1% lidocaine. Wound prep: Extensive cleansing with betadine, Wound irrigation with saline, Wound explored extensively. Skin closed with 4 4-0 Prolene using interrupted sutures and sterile technique. Patient tolerated well. MDM: 08:59 Patient medically screened. jr8 10:10 Data reviewed: vital signs, nurses notes, radiologic studies, plain films. Data jr8 interpreted: Pulse oximetry: on room air is 98 %. Interpretation: normal. Counseling: I had a detailed discussion with the patient and/or guardian regarding: the historical points, exam findings, and any diagnostic results supporting the discharge/admit diagnosis, radiology results, the need for outpatient follow up, a hand specialist, to return to the emergency department if symptoms worsen or persist or if there are any questions or concerns that arise at home. 07/14 08:57 Order name: XRAY Hand RIGHT 3 View; Complete Time: 09:53 ss Administered Medications: 09:58 Drug: Tetanus-Diphtheria Toxoid Adult 0.5 ml {[employer]: [employer]. Exp: jr8 11/18/2022. Lot #: [id number]. } Route: IM; Site: left deltoid; Disposition Summary: 07/14/21 10:14 Discharge Ordered Location: Home jr8 Problem: new jr8 Symptoms: have improved jr8 Condition: Stable jr8 Diagnosis - Laceration without foreign body of finger without damage to nail jr8 Followup: jr8 - With: Jimenez Dias MD - When: 7 - 10 days - Reason: Wound Recheck, Recheck today's complaints, Continuance of care, Staple/Suture removal, Re-evaluation by your physician Discharge Instructions: - Laceration Care, Adult jr8 - Discharge Summary Sheet tw2 Forms: - Medication Reconciliation Form jr8 - Thank You Letter jr8 - Antibiotic Education jr8 - Work release form tw2 - Prescription Opioid Use jr8 Prescriptions: - Cephalexin 500 mg Oral Capsule - take 1 capsule by ORAL route every 8 hours for 7 days; 21 capsule; Refills: 0, jr8 Product Selection Permitted Addendum: 07/16/2021 16:19 Co-signature as Attending Physician, Johnson Garcia MD I agree with the assessment and s p3 plan of care. Signatures: Dispatcher [employer] Fidencio Garcia PA PA jr8 Catrachita Lai RN RN tw2 Johnson Garcia MD MD sp3
[2021-07-14 10:31] VITALS: BP 113/98; TEMP 97.9; O2SAT 98
== END 2021-07-14 10:26 | disposition home or self-care (01) ==
LOC: ER 08:36
PROC: 0JQJ0ZZ Repair Right Hand Subcutaneous Tissue and Fascia, Open Approach (ICD-10-PCS; principal; 2021-07-14)
DX: S61.214A Laceration without foreign body of right ring finger without damage to nail, initial encounter (principal); W31.2XXA Contact with powered woodworking and forming machines, initial encounter; Y93.89 Activity, other specified; Y92.9 Unspecified place or not applicable; Z23 Encounter for immunization
CPT/HCPCS: 90471; 90714; 99284

== ENCOUNTER 2021-07-28 08:39 | Emergency (ER) | payer OTHER ==
--- OUTSIDE RECORDS SUMMARY | 2021-07-28 08:42 | XMS REPORT | Continuity of Care Document ---
:1995 Author Organization [place] [facility] t Address [address] [place] [address] [place] [address] Care Team Providers Name Role Phone Uzma [...] Active Unive rs 6-05 ity of 00:00: [address] No known No known Disease Unive rs active active ity of problems problems [facility] Allergies, Adverse Reactions, Alerts Allergy Allergy Status Severity Reaction(s) Onset Inactive Treating Comm ents Source Name Type Date Date Clinician NO KNOWN Drug Active Univers ALLERGIE Class ity of S [facility] Social History Social Habit Start Date Stop Date Quantity Comments Source History of tobacco Cigarette Smoker University of use [facility] Exposure to Not sure University of SARS-CoV-2 (event) [facility] Tobacco use and 2020-12-28 2020-12-28 Never used Universit y of exposure 00:00:00 00:00:00 [facility] Alcohol intake 2020-12-28 2020-12-28 Current drinker Unive rsity of 00:00:00 00:00:00 of alcohol [facility] (finding) Branch Cigarettes smoked 2020-12-28 2020-12-28 Univers ity of current (pack per 00:00:00 00:00:00 ) - Reported Branch Cigarette 2020-12-28 2020-12-28 University of pack-years 00:00:00 00:00:00 [facility] Tobacco Comment 2020-12-10 2020-12-10 quit 3 months Univer sity of 00:00:00 00:00:00 ago [facility] Sex Assigned At [birth year] Universit y of 00:00:00 00:00:00 [facility] Smoking Status Start Date Stop Date Source Former smoker 2020-12-28 00:00:00 2020-12-28 00:00:00 Universi ty of [facility] Current every day 2017-06-22 00:00:00 [facility] smoker [facility] Medications Ordered Filled Start Stop Current Ordering Indication Dosage Frequency Signature Comments Components Source Medication Medication Date Date Medication? Clinician (SIG) Name Name famotidine No 20mg 20 mg, IV U nivers 20 mg in NS 12-28 Piggyback, i ty of 50 ml 19:45: 19:31 ONCE, 1 [place] (PEPCID) 20 00 :00 dose, Wed Med ical mg/50 mL 12/28/20 at [facility] h Piggyback 1445, 50 20 mg mL NaCl 0.9% 2020- No 1000mL at 999 Uni vers (NS) bolus 12-28 mL/hr, ity of infusion 19:30: 19:31 1,000 mL, Antoine as 1,000 mL 00 :00 IV Medical Infusion, [place] ONCE, 1 dose, 12/28/20 at 1430, STAT iopamidol 2020- No [id number] 120mL 120 mL, Univers (ISOVUE 12-28 Intravenou ity o f 370-500 mL) 18:40: 18:40 s, ONCE, 1 [place] injection 00 :00 dose, Wed Medic al 120 mL 12/28/20 at Branch 1400, Routine ondansetron 2020- No 4mg 4 mg, Slow Univers (ZOFRAN 6- 06-23 IV Push, ity of (PF)) 18:30: 17:42 ONCE, 1 [place] injection 4 00 :00 dose, Wed Med ical mg 12/28/20 at Branch 1330, JOJO ondansetron 2020-0 Yes [id number] 4mg Take 1 Univers (ZOFRAN 6-23 tablet by ity of ODT) 4 mg 00:00: mouth [place] disintegrat 00 every 8 Medic al ing tablet (eight) Branch hours as needed for Nausea and Vomiting (N/V). ondansetron 0 Yes [id number] 4mg Take 1 Univers (ZOFRAN 6-23 tablet by ity of ODT) 4 mg 00:00: mouth [place] disintegrat 00 every 8 Medic al ing tablet (eight) Branch hours as needed for Nausea and Vomiting (N/V). ondansetron 0 Yes [id number] 4mg Take 1 Univers (ZOFRAN 6-23 tablet [...] at 1700, Until Discontinu ed, Routine lactated Yes 1000mL at 100 Unive rs ringers IV 6-05 mL/hr, ity of infusion 16:00: 1,000 mL, [place] 1,000 mL 00 IV Medical Infusion, Branch CONTINUOUS , Starting 12/10/20 at 1100, Until Discontinu ed, Routine acetaminoph 0 Yes 650mg 650 mg, Un linsey en 6-05 Oral, ity of (TYLENOL) 14:58: Q6HPRN, [place] tablet 650 36 Starting Medic al mg 12/10/20 Branch at 0958, Until Discontinu ed, Routine, Pain (scale 1-3) ondansetron 0 2020- No 4mg 4 mg, Slow Univers (ZOFRAN 12-10 06-05 IV Push, ity of (PF)) 13:00: 12:15 ONCE, 1 [place] injection 4 00 :00 dose, Sat Med ical mg 12/10/20 at Branch 0800, JOJO NaCl 0.9% 2020- No 1000mL at 999 Uni vers (NS) bolus 12-10 06-05 mL/hr, ity of infusion 12:00: 12:15 1,000 mL, Antoine as 1,000 mL 00 :00 IV Medical Infusion, Branch ONCE, 1 dose, 12/10/20 at 0700, JOJO chlorhexidi 0 Yes [id number] 15mL Swish and Univers ne 0.12 % 5-17 spit out ity of mouthwash 00:00: 15 mL 2 [place] 00 (two) Medical times Branch daily. methylPREDN 0 Yes [id number] Take by Univers ISolone 5-17 mouth ity [...] (scale 7-10). Indication s: acute pain ondansetron 0 Yes [id number] 4mg Take 1 Univers 4 mg 5-17 tablet by ity of disintegrat 00:00: mouth [place] ing tablet 00 every 8 Medica l (eight) Branch hours as needed for Nausea and Vomiting (N/V). chlorhexidi 0 Yes [id number] 15mL Swish and Univers ne 0.12 % 5-17 spit out ity of mouthwash 00:00: 15 mL 2 [place] 00 (two) Medical times Branch daily. methylPREDN 2020-0 Yes [id number] Take by Univers ISolone 5-17 mouth ity [...] 7-10). Indication s: acute pain ondansetron Yes [id number] 4mg Take 1 Univers 4 mg 5-17 tablet by ity of disintegrat 00:00: mouth [place] ing tablet 00 every 8 Medica l (eight) Branch hours as needed for Nausea and Vomiting (N/V). chlorhexidi 2020- No [id number] 15mL Swish and Univers ne 0.12 % 5-17 06-05 spit out ity o f mouthwash 00:00: 00:00 15 mL 2 [place] 00 :00 (two) Medical times Branch daily. methylPREDN 2020- No [id number] Take by Univers ISolone -17 06-05 mouth [...] Indication s: acute pain ondansetron 2020- No [id number] 4mg Take 1 Univers 4 mg 5-17 06-05 tablet by ity of disintegrat 00:00: 00:00 [place] ing tablet 00 :00 every 8 Medica l (eight) Branch hours as needed for Nausea and Vomiting (N/V). clindamycin 2020- No [id number] 300mg Take 2 Univers 150 mg 5-17 05-25 capsules ity of capsule 00:00: 04:59 by mouth 4 Antoine as 00 :00 (four) Medical times Branch daily for 7 days. azithromyci Yes [id number] 250mg Take 1 Univers n 4-10 tablet by ity of (ZITHROMAX 00:00: mouth [place] Z-TRAV) 250 00 SEE-INSTRU Med ical mg tablet CTIONS. Branch Take 500 mg day 1, then 250 mg days 2 to 5. dextrometho Yes [id number] 10mL Take 10 mL Univers rphan-guaif 4-10 by mouth ity of enesin 00:00: every 6 [place] 10-100 mg/5 00 (six) Medical mL solution hours as Bran ch needed for Cough. ibuprofen Yes [id number] 800mg Take 1 U nivers 800 mg 4-10 tablet by ity of tablet 00:00: mouth [place] 00 every 8 Medical (eight) Branch hours. azithromyci Yes [id number] 250mg Take 1 Univers n 4-10 tablet by ity of (ZITHROMAX 00:00: mouth [place] Z-TRAV) 250 00 SEE-INSTRU Med ical mg tablet CTIONS. Branch Take 500 mg day 1, then 250 mg days 2 to 5. dextrometho Yes [id number] 10mL Take 10 mL Univers rphan-guaif 4-10 by mouth ity of enesin 00:00: every 6 [place] 10-100 mg/5 00 (six) Medical mL solution hours as Bran ch needed for Cough. ibuprofen Yes [id number] 800mg Take 1 U nivers 800 mg 4-10 tablet by ity of tablet 00:00: mouth [place] 00 every 8 Medical (eight) Branch hours. azithromyci 2020- No [id number] 250mg Take 1 Univers n 4-10 06-05 tablet by ity of (ZITHROMAX 00:00: 00:00 mouth [place] Z-TRAV) 250 00 :00 SEE-INSTRU Med ical mg tablet CTIONS. Branch Take 500 mg day 1, then 250 mg days 2 to 5. dextrometho 2020- No [id number] 10mL Take 10 mL Univers rphan-guaif 4-10 06-05 by mouth ity of enesin 00:00: 00:00 every 6 [place] 10-100 mg/5 00 :00 (six) Medical mL solution hours as Bran ch needed for Cough. ibuprofen 2020- No [id number] 800mg Take 1 Univers 800 mg 4-10 [...] 00 (three) Medical times Branch daily. cyclobenzap 2017-07- No 5mg Take 1 Uni vers rine [...] University of pressure 18:03:00 crying and moving [facility] [place] [facility] Diastolic blood 2021-01-07 128 mm[Hg] [facility] University o f pressure 18:03:00 crying and moving [facility] [place] [facility] Heart rate 2021-01-07 109 /min [facility] 18:03:00 [facility] Body temperature 2021-01-07 37.72 Annabella [facility] 18:03:00 [facility] Respiratory rate 2021-01-07 18 /min [facility] 18:03:00 [facility] Body weight 2021-01-07 113.399 kg [facility] 18:03:00 [facility] BMI 2021-01-07 32.10 kg/m2 [facility] 18:03:00 [facility] Oxygen saturation 2021-01-07 100 /min [facility] in Arterial blood 18:03:00 [facility] by Pulse oximetry Branch Systolic blood 2021-01-07 159 mm[Hg] hysterically University of pressure 18:03:00 crying and moving [place] [facility]ia Branch Diastolic blood 2021-01-07 128 mm[Hg] hysterically University o f pressure 18:03:00 crying and moving [facility] Branch Heart rate 2021-01-07 109 /min University of 18:03:00 [facility] Body temperature 2021-01-07 37.72 Annabella University of 18:03:00 [facility] Branch Respiratory rate 2021-01-07 18 /min University of 18:03:00 [facility] Body weight 2021-01-07 113.399 kg University of 18:03:00 [facility] BMI 2021-01-07 32.10 kg/m2 University of 18:03:00 [facility] Oxygen saturation 2021-01-07 100 /min University of in Arterial blood 18:03:00 [facility] by Pulse oximetry Branch Systolic blood 2020-12-28 129 mm[Hg] University of pressure 19:00:00 [facility] Branch Diastolic blood 2020-12-28 83 mm[Hg] University o f pressure 19:00:00 [facility] Branch Heart rate 2020-12-28 71 /min University of 19:00:00 [facility] Respiratory rate 2020-12-28 16 /min University of 19:00:00 [facility] Oxygen saturation 2020-12-28 100 /min University of in Arterial blood 19:00:00 [facility] by Pulse oximetry Branch Body temperature 2020-12-28 36.28 Annabella University of 17:10:00 [facility] Branch Body height 2020-12-28 188 cm University of 17:10:00 [facility] Body weight 2020-12-28 113.399 kg University of 17:10:00 [facility] BMI 2020-12-28 32.10 kg/m2 University of 17:10:00 [facility] Branch Systolic blood 2020-12-28 129 mm[Hg] University of pressure 19:00:00 [place] [facility] Diastolic blood 2020-12-28 83 mm[Hg] University o f pressure 19:00:00 [place] [facility] Heart rate 2020-12-28 71 /min University of 19:00:00 [place] [facility] Respiratory rate 2020-12-28 16 /min University of 19:00:00 [facility] Oxygen saturation 2020-12-28 100 /min University of in Arterial blood 19:00:00 [facility] asia by Pulse oximetry Branch Body temperature 2020-12-28 36.28 Annabella University of 17:10:00 [facility] Body height 2020-12-28 188 cm University of 17::00 [facility] Body weight 2020-12-28 113.399 kg University of 17::00 [facility] BMI 2020-12-28 32.10 kg/m2 University of 17:10:00 [facility] Systolic blood 2020-12-10 123 mm[Hg] University of pressure 20:25:00 [facility] Diastolic blood 2020-12-10 81 mm[Hg] University o f pressure 20:25:00 [facility] Heart rate 2020-12-10 66 /min University of 20:25:00 [facility] Respiratory rate 2020-12-10 14 /min University of 20:25:00 [facility] Oxygen saturation 2020-12-10 99 /min University of in Arterial blood 20:25:00 [facility] asia by Pulse oximetry Branch Body temperature 2020-12-10 37.22 Annabella University of 16:12:00 [facility] Body height 2020-12-10 188 cm University of 15:41:00 [facility] Body weight 2020-12-10 99.474 kg University of 15:41:00 [facility] BMI 2020-12-10 28.16 kg/m2 University of 15:41:00 [facility] Systolic blood 2020-12-10 123 mm[Hg] University of pressure 20:25:00 [facility] Diastolic blood 2020-12-10 81 mm[Hg] University o f pressure 20:25:00 [facility] Heart rate 2020-12-10 66 /min University of 20:25:00 [facility] Respiratory rate 2020-12-10 14 /min University of 20:25:00 [facility] Oxygen saturation 2020-12-10 99 /min University of in Arterial blood 20:25:00 [facility] asia by Pulse oximetry Branch Body temperature 2020-12-10 37.22 Annabella University of 16:12:00 [facility] Body height 2020-12-10 188 cm University of 15:41:00 [facility] Body weight 2020-12-10 99.474 kg University of 15:41:00 [facility] BMI 2020-12-10 28.16 kg/m2 University of 15:41:00 [facility] Systolic blood 2020-11-21 159 mm[Hg] University of pressure 13:01:00 [facility] Diastolic blood 2020-11-21 100 mm[Hg] University o f pressure 13:01:00 [facility] Heart rate 2020-11-21 72 /min University of 13:01:00 [facility] Body temperature 2020-11-21 36.61 Annabella University of 13:01:00 [facility] Respiratory rate 2020-11-21 18 /min University of 13:01:00 [facility] Body weight 2020-11-21 97.523 kg University of 13:01:00 [facility] BMI 2020-11-21 27.60 kg/m2 University of 13:01:00 [facility] Oxygen saturation 2020-11-21 100 /min University of in Arterial blood 13:01:00 [facility] asia by Pulse oximetry Branch Systolic blood 2020-11-21 159 mm[Hg] University of pressure 13:01:00 [facility] Diastolic blood 2020-11-21 100 mm[Hg] University o f pressure 13:01:00 [facility] Heart rate 2020-11-21 72 /min University of 13:01:00 [facility] Body temperature 2020-11-21 36.61 Annabella University of 13:01:00 [facility] Respiratory rate 2020-11-21 18 /min University of 13:01:00 [facility] Body weight 2020-11-21 97.523 kg University of 13:01:00 [facility] BMI 2020-11-21 27.60 kg/m2 University of 13:01:00 [facility] Oxygen saturation 2020-11-21 100 /min University of in Arterial blood 13:01:00 [facility] by Pulse oximetry Branch Procedures Procedure Date / Time Performing Clinician Source Performed CONSENT/REFUSAL FOR 2021-01-07 17:59:07 Doctor Unassigned, No Un [facility] DIAGNOSIS AND TREATMENT Name Medical Branch CT ABDOMEN PELVIS W 2020-12-28 18:45:[address] [facility] [place] CONTRAST Medical Branch LIPASE 2020-12-28 17:39:00 Gianni, K [facility] COMP. METABOLIC PANEL 2020-12-28 17:39:00 Alvarez Archer [facility] ([id number]) Medical Branch CBC WITH DIFF 2020-12-28 17:39:00 Alvarez Archer [facility] URINALYSIS 2020-12-28 17:39:00 Gianni [facility] CONSENT/REFUSAL FOR 2020-12-28 16:58:57 Doctor Unassigned, No Un [facility] DIAGNOSIS AND TREATMENT Name Medical Branch PROTHROMBIN TIME / INR 2020-12-10 15:10:00 Barrington Berman [facility] ACTIVATED PARTIAL 2020-12-10 15:10:00 Barrington Berman [facility] THRMPLAS [facility] URINE DRUG (IMMUNOASSAY) 2020-12-10 13:45:00 Barrington Berman [facility] DRUG [facility] SCREEN URINALYSIS 2020-12-10 13:45:00 Barrington Berman [facility] COVID-19 (ID NOW RAPID 2020-12-10 12:46:00 Barrington Berman [facility] TESTING) [facility] SALICYLATE 2020-12-10 12:18:00 Barrington Berman [facility] LACTIC ACID WHOLE BLOOD 2020-12-10 12:15:00 Barrington Berman [facility] LIPASE 2020-12-10 12:13:00 Barrington Berman [facility] MAGNESIUM 2020-12-10 12:13:00 Barrington Berman [facility] HEPATIC FUNCTION PANEL 2020-12-10 12:13:00 Barrington Berman [facility] ([id number]) (ALB,T.PRO,BILI [facility] T,BU/BC,ALT,AST,ALK PHOS) BASIC METABOLIC PANEL 2020-12-10 12:13:00 Barrington Berman [facility] (NA, K, CL, CO2, Medical Branch GLUCOSE, BUN, CREATININE, CA) ETHANOL 2020-12-10 12:13:00 Barrington Berman [facility] CBC WITH DIFF 2020-12-10 12:13:00 Barrington Berman [facility] Medical Branch HB ECG ROUTINE & RHYTHM 2020-12-10 12:01:59 Barrington Berman [facility] CONSENT/REFUSAL FOR 2020-12-10 11:46:13 [facility] Name [facility] NOTICE OF PRIVACY 2020-11-21 12:58:09 Doctor Unassigned, No Univ [facility] PRACTICES Name [facility] Branch CONSENT/REFUSAL FOR 2020-11-21 12:57:43 Doctor Unassigned, No [facility]REAT[facility] Encounters Start End Encounter Admission Attending Care Care Encounter Source Date/Time Date/Time Type Type Clinicians Facility Department ID 2021-01-07 2021-01-07 Emergency [facility] [id number] 13:07:00 13:25:00 Thi Wall [id number] [place] [id number] [place] [id number] [facility] 2021-01-07 2021-01-07 [facility] [id number] [facility] 13:07:00 13:25:00 Thi Wall [id number] ity of [place] 4.2.7.[address] [facility] [id number] [facility] [address] [place] 2021-01-07 2021-01-07 Emergency X [facility] ERT [id number] Univers 12:59:00 12:59:00 ity of [facility] 2021-01-07 2021-01-07 Orders Doctor FIELDS [id number] 00:00:00 00:00:00 Only Unassigned, MANDY [id number] [place] [facility] 4.2.7.2.686 [id number] [id number] 2021-01-07 2021-01-07 Orders Doctor FIELDS 1.2.840.114 [id number] Univers 00:00:00 00:00:00 Only Unassigned, MANDY [id number] ity of [place] [facility] 4.2.7.2.686 [facility] [id number] [facility] 009 Branch 2020-12-28 2020-12-28 Emergency Gianni, K [facility] [id number] 12:12:00 14:45:00 Carol Mae [id number] [place] 4.2.7.2.686 [place] [id number] 2020-12-28 2020-12-28 Emergency Alvarez Archer [facility] [id number] Univers 12:12:00 14:45:00 Carol Mae [id number] i ty of [place] 4.2.7.2.[address] [facility] [id number] [address] 2020-12-28 2020-12-28 Emergency X [facility] ERT [id number] Univers 11:59:00 11:59:00 ity [facility] 2020-12-10 2020-12-10 Emergency Barrington Berman [facility] 1.2.840. 114 [id number] 06:50:00 15:30:00 Raymundo Dexter [id number] [place] 4.2.7.2.686 [place] [id number] [id number] 2020-12-10 2020-12-10 Emergency Barrington Berman [facility] 1.2.840. 114 [id number] Univers 06:50:00 15:30:00 Raymundo Dexter [id number] ity [facility] 4.2.7.2.[address] [facility] [id number] [address] 2020-12-10 2020-12-10 Emergency X [facility] ERT [id number] Univers 06:47:00 06:47:00 ity [facility] 2020-12-10 2020-12-10 Orders Doctor FIELDS 1.2.840.114 [id number] 00:00:00 00:00:00 Only UnassignedMANDY [id number] [place] [facility] 4.2.7.2.686 [id number] 009 2020-12-10 2020-12-10 Orders Doctor FIELDS 1.2.840.114 [id number] Univers 00:00:00 00:00:00 Only UnassignedMANDY [id number] [facility] 4.2.7.2.686 Antoine [id number] [facility] [address] [place] 2020-11-21 2020-11-21 Emergency Roque, [facility] [id number] [facility] 08:03:00 08:39:00 Saima Wall [id number] i ty of [place] 4.2.7.2.686 [facility] [id number] [facility] 084 Branch 2020-11-21 2020-11-21 Emergency Roque, [facility] [id number] 08:03:00 08:39:00 Saima Wall [id number] [place] 4.2.7.2.686 [place] [id number] 2020-11-21 2020-11-21 Emergency X , [facility] ERT [id number] Univers 08:03:00 08:03:00 SAIMA [facility] Results Test Test Test Results Result Source Description Time Comments Comments CT ABDOMEN 2020-12 CT Abdomen and Pelvis with [place] PELVIS W -23 intravenous contrast. [facility] CONTRAST 18:54:5 HISTORY: Abdominal Medica l 8 abscess/infection. DOSE: [place] Up-to-date CT equipment and radiation dose reduction [...] nts APPEARANCE (test code = Clear Clear 0106321199) COLOR (test code = 7549369140) Yellow Yellow PH (test code = 2127654989) 4.8-8.0 SP GRAVITY (test code = 1.003-1.030 7886001435) GLU U QUAL (test code = Normal Normal 8074753640) BLOOD (test code = 8478901108) Negative Negative KETONES (test code = 8198531110) Negative Negative PROTEIN (test code = 2887-8) Negative Negative UROBILIN (test code = Normal Normal 1088520254) BILIRUBIN (test code = Negative Negative 3469196214) NITRITE (test code = 8860733106) Negative Negative LEUK MITALI (test code = Negative Negative 2961028412) RBC/HPF (test code = 6986981232) See_Comment [Automated message] The system which ge nerated this result transmit nazia reference range: 0 - 3 HP F. The reference range was not used to interpret th is result as normal/abnormal . WBC/HPF (test code = 5472874199) See_Comment [Automated message] The system which ge nerated this result transmit nazia reference range: 0 - 5 HP F. The reference range was not used to interpret th is result as normal/abnormal . BACTERIA (test code = Negative Negative 2025150522) MUCOUS (test code = 9894039382) Slight Negative LPF A Lab Interpretation (test code = Abnormal 40672-9) [facility]. METABOLIC PANEL ([id number])2020-12-28 17:57:13 Test Item Value Reference Range Interpretation Comments NA (test code = 142 mmol/L 135-145 8980069520) K (test code = 4.5 mmol/L 3.5-5.0 4780998283) CL (test code = 104 mmol/L 98-108 2546181411) CO2 TOTAL (test code 29 mmol/L 23-31 = 8706928612) AGAP (test code = 2-16 7711139254) BUN (test code = 13 mg/dL 7-23 0354025804) GLUCOSE (test code = 101 mg/dL 70-110 3148854485) CREATININE (test code 0.92 mg/dL 0.60-1.25 = 0900644274) TOTAL BILI (test code 0.5 mg/dL 0.1-1.1 = 4986681333) CALCIUM (test code = 9.9 mg/dL 8.6-10.6 8098711864) T PROTEIN (test code 8.0 g/dL 6.3-8.2 = 7805737613) ALBUMIN (test code = 4.8 g/dL 3.5-5.0 2349958841) ALK PHOS (test code = 61 U/L 34-122 5945891891) ALTv (test code = 47 U/L 5-50 1742-6) AST(SGOT) (test code 37 U/L 13-40 = 2539751646) eGFR (test code = mL/min/1.73m2 0906300613) DESIREE (test code = DESIREE) Association of [...] or urine or abnormalities in imaging tests). [facility] Test Item Value Reference Range Interpretation Comments LIPASE (test code = 8680080662) 328 U/L 0-220 H Lab Interpretation (test code = Abnormal 05070-9) [facility] [id number] 17:51:55 Test Item Value Reference Range Interpretation [...] RDW-SD (test code = 38.7 fL 38.5-51.6 03091-2) RDW-CV (test code = 12.2 % 12.1-15.4 788-0) PLT (test code = See_Comment [Automated 777-3) message] The sy stem which generated this result transmitted reference range : 150 - 328 10*3/ ?L. The reference r lucila was not used to interpret this result as normal/abnormal . MPV (test code = 9.3 fL 9.8-13.0 L 23975-6) NRBC/100 WBC (test See_Comment [Automat ed code = 3559770677) message] The system which generated this result transmitted reference range : 0.0 - 10.0 /100 WBCs. The refer ence range was not u sed to interpret th is result as normal/abnormal . NRBC x10^3 (test code <0.01 See_Comment [Auto mated = 9459669623) message] The s ystem which generated this result transmitted reference range : 10*3/?L. The reference range was not used to interpret this result as normal/abnormal . GRAN MAT (NEUT) % 53.5 % (test code = 770-8) IMM GRAN % (test code 0.20 % = 4643673583) LYMPH % (test code = 34.2 % 736-9) MONO % (test code = 9.6 % 5905-5) EOS % (test code = 2.1 % 713-8) BASO % (test code = 0.4 % 706-2) GRAN MAT x10^3(ANC) 2.56 10*3/uL 1.99-6.95 (test code = 9047750611) IMM GRAN x10^3 (test <0.03 0.00-0.06 code = 4584621163) LYMPH x10^3 (test code 1.64 10*3/uL 1.09-3.23 = 731-0) MONO x10^3 (test code 0.46 10*3/uL 0.36-1.02 = 742-7) EOS x10^3 (test code = 0.10 10*3/uL 0.06-0.53 711-2) BASO x10^3 (test code <0.03 0.01-0.09 = 704-7) Lab Interpretation Abnormal (test code = 83451-8) [facility]57 Test Item Value Reference Range Interpretation Comments APTT Patient (test See_Comment [Automat ed code = 3173-2) message] The system which generated this result transmitted reference range : 23 - 38 Seconds . The reference range was not used to interpr et this result as normal/abnormal . DESIREE (test code = DESIREE) The [facility] patient population mean normal value for aPTT is 30 seconds. Lab Interpretation Normal (test code = 17135-3) [facility]th[facility] (PT) / [id number] 15:40:16 Test Item Value Reference Range Interpretation Comments PROTIME PATIENT (test See_Comment [Auto mated message] code = 5964-2) The system [employer] generated this result transmitted ref erence range: 12.0 - 1 4.7 Seconds. The re ference range was not u sed to interpret this result as normal/abnor mal. INR (test code = 6301-6) Nor mal INR <1.1; Warfarin Therap eutic range 2.0 to 3. 0 or 2.5 to 3.5, dep ending upon the indica tions. Lab Interpretation (test Normal code = 95455-2) [facility]ysis[facility] 14:32:20 Test Item Value Reference Range Interpretation Comments APPEARANCE (test code = Hazy Clear A 7211180767) COLOR (test code = Shellie Yellow A 3704088142) PH (test code = 4.8-8.0 2913606850) SP GRAVITY (test code = 1.003-1.030 H 7616460887) GLU U QUAL (test code = Normal Normal 5601490860) BLOOD (test code = Negative Negative 3335179346) KETONES (test code = Negative Negative 7489502881) PROTEIN (test code = Negative Negative 2887-8) UROBILIN (test code = Normal Normal 1489906447) BILIRUBIN (test code = Negative Negative 5067288151) NITRITE (test code = Negative Negative 9048994512) LEUK IMTALI (test code = Negative Negative 0916671845) RBC/HPF (test code = See_Comment [Autom ated message] 2347627439) The system [employer] generated this result transmitted ref erence range: 0 - 3 HP F. The reference range was not used to int erpret this result as normal/abnormal . WBC/HPF (test code = See_Comment [Autom ated message] 2545099441) The system [employer] generated this result transmitted ref erence range: 0 - 5 HP F. The reference range was not used to int erpret this result as normal/abnormal . BACTERIA (test code = Few Negative A 0490951578) MUCOUS (test code = Marked Negative LPF A 9101496334) SQ EPITH (test code = <1 HPF 6516935047) Lab Interpretation (test Abnormal code = 33441-6) [facility]UG (IMMUNOASSAY) - COMPREHENSIVE DRUG [id number] 14:30:54 Test Item Value Reference Range Interpretation Comments AMPHET (test code = Negative Negative 5957229528) REBECA U (test code = Negative Negative 5222214722) BENZO U (test code = Negative Negative 1139742009) Cocaine Metabolite (test Negative Negative code = 5494109857) METHADONE (test code = Negative Negative 9351415301) OPIATES (test code = Negative Negative 8781020114) PCP (test code = Negative Negative 0106552166) THC (test code = Presumptive Positive Negative A 2452983593) DESIREE (test code = DESIREE) Urine Drug [...] testing). Lab Interpretation (test Abnormal code = 00722-5) [facility] HospitalSALICYLATE2021-06-05 13:41:52 Test Item Value Reference Range Interpretation Comments SALICYLATE (test code <10 mg/L = 4776911244) DESIREE (test code = DESIREE) Therapeutic Range: ? Analgesic and Antipyretic Use ? 20-100 mg/L ? ? Anti-Inflammatory Use ? 100-250 mg/L Toxic Range: ? Greater than 300 mg/L [facility] HospitalACETAMINOPHEN2021-06-05 13:41:52 Test Item Value Reference Range Interpretation Comments ACETAMINOP (test code = <10.0 10.0-30.0 L 0750748820) DESIREE (test code = DESIREE) Toxic: Greater than 200 ug/mL @ 4 hour post ingestion or greater than 50 ug/mL @ 12 hour post ingestion Lab Interpretation (test Abnormal code = 65422-1) [facility] HospitalCOVID-19 (ID NOW RAPID TESTING)2020-12-10 13:13:08 Test Item Value Reference Range Interpretation Comments SARS-CoV-2 Rapid ID NOW Not Detected Not Detected (test code = 00487-7) DESIREE (test code = DESIREE) ID NOW COVID-19 Assay is an isothermal nucleic acid amplification test intended for the qualitative detection of nucleic acid from SARS-CoV-2 viral RNA in nasopharyngeal (STREET INSPECTOR) specimens. It is used under Emergency Use [...] indicated. 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 Fatalities Reported [facility] HospitalLactic Acid Whole [id number] 12:41:49 Test Item Value Reference Range Interpretation Comments LACTIC ACID (test code = 1.89 mmol/L 0.50-2.20 2845149232) Lab Interpretation (test code = Normal 22343-7) [facility] HospitalMAGNESIUM2021-06-05 12:38:27 Test Item Value Reference Range Interpretation Comments MAGNESIUM (test code = 8251466224) 1.7 mg/dL 1.7-2.4 Lab Interpretation (test code = Normal 68500-3) [facility] HospitalHepatic Function Panel (ALB, T.PRO, BILI T, BU/BC, ALT, AST, ALK PHOS)2020-12-10 12:38:07 Test Item Value Reference Range Interpretation Comments TOTAL BILI (test code = 7984515832) 0.8 mg/dL 0.1-1.1 BILI UNCON (test code = 4950951242) 0.6 mg/dL 0.1-1.1 BILI CONJ (test code = 7073169385) 0.0 mg/dL 0.0-0.3 T PROTEIN (test code = 0120850598) 8.4 g/dL 6.3-8.2 H ALBUMIN (test code = 9642972881) 5.2 g/dL 3.5-5.0 H ALK PHOS (test code = 7686891213) 69 U/L 34-122 ALTv (test code = 1742-6) 39 U/L 5-50 AST(SGOT) (test code = 3847645878) 36 U/L 13-40 Lab Interpretation (test code = Abnormal 43262-6) [facility] Met[facility] Panel (NA, K, CL, CO2, GLUCOSE, BUN, CREATININE, CA)2020-12-10 12:37:47 Test Item Value Reference Range Interpretation Comments NA (test code = 141 mmol/L 135-145 1709756943) K (test code = 3.7 mmol/L 3.5-5.0 1521642334) CL (test code = 105 mmol/L 98-108 3716205799) CO2 TOTAL (test code = 27 mmol/L 23-31 0742480355) AGAP (test code = 2-16 8427363446) BUN (test code = 19 mg/dL 7-23 6304410684) GLUCOSE (test code = 128 mg/dL 70-110 H 1723889186) CREATININE (test code = 1.16 mg/dL 0.60-1.25 3193042375) CALCIUM (test code = 9.6 mg/dL 8.6-10.6 4449463739) eGFR (test code = mL/min/1.73m2 2080152744) DESIREE (test code = DESIREE) Association of [...] tests). Lab Interpretation Abnormal (test code = 08520-3) [facility] HospitalLipase [id number] 12:37:47 Test Item Value Reference Range Interpretation Comments LIPASE (test code = 7010888395) 241 U/L 0-220 H Lab Interpretation (test code = Abnormal 98269-5) [facility] HospitalCBC with [id number] 12:25:07 Test Item Value Reference Range Interpretation Comments WBC (test code = See_Comment H [Automated 8790-2) message] The system which generated this result transmit nazia reference range : 4.20 - 10.70 10*3/?L. The reference range was not used to interpret this result as normal/abnormal . RBC (test code = See_Comment H [Automated 103-8) message] The system which generated this result [...] RDW-SD (test code = 39.2 fL 38.5-51.6 64597-7) RDW-CV (test code = 12.3 % 12.1-15.4 788-0) PLT (test code = See_Comment [Automated 777-3) message] The system which generated this result transmit nazia reference range : 150 - 328 10*3/ ?L. The reference range was not u sed to interpret th is result as normal/abnormal . MPV (test code = 9.3 fL 9.8-13.0 L 88183-8) NRBC/100 WBC (test See_Comment [Automat ed code = 7341077025) message] The system which generated this result transmit nazia reference range : 0.0 - 10.0 /100 WBCs. The reference range was not used to interpret this result as normal/abnormal . NRBC x10^3 (test code <0.01 See_Comment [Auto mated = 0736815804) message] The system which generated this result transmit nazia reference range : 10*3/?L. The reference range was not used to interpret this result as normal/abnormal . GRAN MAT (NEUT) % 87.5 % (test code = 770-8) IMM GRAN % (test code 0.30 % = 8874348185) LYMPH % (test code = 5.2 % 736-9) MONO % (test code = 6.4 % 5905-5) EOS % (test code = 0.3 % 713-8) BASO % (test code = 0.3 % 706-2) GRAN MAT x10^3(ANC) 12.14 10*3/uL 1.99-6.95 H (test code = 9323374587) IMM GRAN x10^3 (test 0.04 10*3/uL 0.00-0.06 code = 0170859188) LYMPH x10^3 (test code 0.72 10*3/uL 1.09-3.23 L = 731-0) MONO x10^3 (test code 0.89 10*3/uL 0.36-1.02 = 742-7) EOS x10^3 (test code = 0.04 10*3/uL 0.06-0.53 L 711-2) BASO x10^3 (test code 0.04 10*3/uL 0.01-0.09 = 704-7) Lab Interpretation Abnormal (test code = 12484-8) [facility]"
--- NOTE | 2021-07-28 08:56 | ER ---
Nurse's Notes [facility] Name: Ramiro Jay Age: 26 yrs Sex: Male : 1995 Arrival Date: 07/28/2021 Time: 08:41 Bed 20 Private MD: Diagnosis: Encounter for removal of sutures Presentation: 07/28 08:48 Chief complaint: Patient states: Needs stitches removed from R hand 4th digit. Sutures ll1 placed 14 days ago here. No fever since. Very anxious about getting sutures out. Coronavirus screen: Vaccine status: Patient reports being unvaccinated. Client denies travel out of the [place] in the last 14 days. At this time, the client does not indicate any symptoms associated with coronavirus-19. Ebola Screen: No symptoms or risks identified at this time. Initial Sepsis Screen: Does the patient meet any 2 criteria? No. Patient's initial sepsis screen is negative. Does the patient have a suspected source of infection? Yes: Skin breakdown/wound. Risk Assessment: Do you want to hurt yourself or someone else? Patient reports no desire to harm self or others. Onset of symptoms was July 14, 2021. 08:48 Method Of Arrival: Ambulatory ll1 08:48 Acuity: MICHELA 5 ll1 Historical: - Allergies: 08:48 No Known Allergies; ll1 - PMHx: 08:48 ADD/ADHD; Pancreatitis; ll1 - PSHx: 08:48 None; ll1 - Immunization history:: Last tetanus immunization: up to date. - Social history:: Smoking status: Patient denies any tobacco usage or history of. Screenin:56 Abuse screen: Denies threats or abuse. Denies injuries from another. Nutritional ww screening: No deficits noted. Tuberculosis screening: No symptoms or risk factors identified. Fall Risk None identified. Assessment: 08:56 General: Appears in no apparent distress. Behavior is anxious. Pain: Complains of pain ww in palmar aspect of middle phalanx of right ring finger and palmar aspect of proximal phalanx of right ring finger. Neuro: Level of Consciousness is awake, alert, obeys commands, Oriented to person, place, time, situation. Cardiovascular: No deficits noted. Respiratory: No deficits noted. Airway is patent Respiratory effort is even, unlabored, Respiratory pattern is regular, symmetrical. GI: No deficits noted. No signs and/or symptoms were reported involving the gastrointestinal system. : No deficits noted. No signs and/or symptoms were reported regarding the genitourinary system. EENT: No deficits noted. No signs and/or symptoms were reported regarding the EENT system. Derm: Skin is healthy with good turgor. Musculoskeletal: No deficits noted. Reports pain in palmar aspect of middle phalanx of right ring finger and palmar aspect of proximal phalanx of right ring finger. Injury Description: Laceration sustained to palmar aspect of middle phalanx of right ring finger and palmar aspect of proximal phalanx of right ring finger left finger laceration with suture removal by Bharti BORGES. Vital Signs: 08:48 BP 145 / 101; Pulse 95; Resp 17; Temp 98.4; Pulse Ox 100% ; Weight 90.72 kg; Height 6 ll1 ft. 2 in. (187.96 cm); Pain 0/10; 08:48 Body Mass Index 25.68 (90.72 kg, 187.96 cm) ll1 ED Course: 08:41 Patient arrived in ED. as 08:42 Darby Santana FNP-C is [facility]. kb 08:42 Preston Harrison MD is Attending Physician. kb 08:48 Arm band placed on Patient placed in an exam room, on a stretcher. ll1 08:52 Triage completed. ll1 08:58 Patient has correct armband on for positive identification. Call light in reach. Adult ww w/ patient. Pulse ox on. NIBP on. 08:58 No provider procedures requiring assistance completed. Patient did not have IV access ww during this emergency room visit. 09:09 Chantel Sutton, RN is Primary Nurse. ww Administered Medications: No medications were administered Outcome: 08:56 Discharge ordered by . kb 08:58 Discharged to home ambulatory, with significant other. ww 09:09 Condition: good ww 09:09 Discharge instructions given to patient, family, Instructed on discharge instructions, follow up and referral plans. medication usage, safety practices, Demonstrated understanding of instructions, follow-up care, medications, wound care. 09:09 Patient left the ED. ww Signatures: Darby Santana FNP-C FNP-Ckb Martinez, Amelia as Santana Piper RN RN 1 Chantel Sutton RN RN ww
--- NOTE | 2021-07-28 08:57 | EDPHYS ---
Physician Documentation [facility] Name: Ramiro Jay Age: 26 yrs Sex: Male : 1995 Arrival Date: 07/28/2021 Time: 08:41 Bed 20 Private MD: Preston Nath HPI: 07/28 09:05 This 26 yrs old Male presents to ER via Ambulatory with complaints of Suture Removal. kb 09:05 The patient has sutures on the palmar aspect of proximal phalanx of right ring finger kb and palmar aspect of middle phalanx of right ring finger. Previous treatment: The patient was initially treated on July 14, 2021, the care was rendered at [facility], Treatment type: The patient's original treatment included sutures. Sutures/samuel progress: The patient has no c/o's. The wound is well-healing with no redness, swelling, discharge, or dehiscence reported. The patient has not experienced similar symptoms in the past. The patient has not recently seen a physician. Historical: - Allergies: 08:48 No Known Allergies; ll1 - PMHx: 08:48 ADD/ADHD; Pancreatitis; ll1 - PSHx: 08:48 None; ll1 - Immunization history:: Last tetanus immunization: up to date. - Social history:: Smoking status: Patient denies any tobacco usage or history of. ROS: 09:04 Constitutional: Negative for fever, chills, and weight loss. kb 09:04 Skin: Positive for laceration(s), of the palmar aspect of proximal phalanx of right ring finger and palmar aspect of middle phalanx of right ring finger, sutures in place. 09:04 All other systems are negative. Exam: 09:04 Constitutional: This is a well developed, well nourished patient who is awake, alert, kb and in no acute distress. Head/Face: Normocephalic, atraumatic. ENT: Moist Mucous membranes Respiratory: Respirations even and unlabored. No increased work of breathing. Talking in full sentences MS/ Extremity: Pulses equal, no cyanosis. Neurovascular intact. Full, normal range of motion. Neuro: Awake and alert, GCS 15, oriented to person, place, time, and situation. Moves all extremities. Normal gait. Psych: Awake, alert, with orientation to person, place and time. Behavior, mood, and affect are within normal limits. 09:04 Skin: Wound recheck: Suture laceration closure: the wound is healing well, the edges are well approximated, no evidence of dehiscence, no drainage, no erythema, mild swelling. Vital Signs: 08:48 BP 145 / 101; Pulse 95; Resp 17; Temp 98.4; Pulse Ox 100% ; Weight 90.72 kg; Height 6 ll1 ft. 2 in. (187.96 cm); Pain 0/10; 08:48 Body Mass Index 25.68 (90.72 kg, 187.96 cm) ll1 Procedures: 09:06 Suture/Staple removal: Removed 4 sutures, from palmar aspect of proximal phalanx of kb right ring finger and palmar aspect of middle phalanx of right ring finger, site appears well healed, Patient tolerated poorly. MDM: 08:43 Patient medically screened. kb 08:55 Data reviewed: vital signs, nurses notes. Data interpreted: Pulse oximetry: on room air kb is 100 %. Interpretation: normal. Counseling: I had a detailed discussion with the patient and/or guardian regarding: the historical points, exam findings, and any diagnostic results supporting the discharge/admit diagnosis, the need for outpatient follow up, a hand specialist, to return to the emergency department if symptoms worsen or persist or if there are any questions or concerns that arise at home. Administered Medications: No medications were administered Disposition Summary: 07/28/21 08:56 Discharge Ordered Location: Home Condition: Stable kb Diagnosis - Encounter for removal of sutures kb Followup: kb - With: Emergency Department - When: As needed - Reason: Worsening of condition Followup: kb - With: Private Physician - When: 2 - 3 days - Reason: Recheck today's complaints, Continuance of care, Re-evaluation by your physician Discharge Instructions: - Discharge Summary Sheet kb - Suture Removal, Care After kb Forms: - Medication Reconciliation Form kb - Thank You Letter kb - Antibiotic Education kb - Prescription Opioid Use kb Addendum: 07/30/2021 07:05 Co-signature as Attending Physician, Preston Harrison MD I agree with the assessment and c diaz plan of care. Signatures: Darby Santana FNP-Kristopher CASTANEDA-Preston Werner MD MD cha Lewis, Lynsay, RN RN ll1 Corrections: (The following items were deleted from the chart) 07/28 09:05 09:04 Skin: Wound recheck: Suture laceration closure: the wound is healing well, the kb edges are well approximated, no evidence of dehiscence, no drainage, no erythema, no swelling, kb
[2021-07-28 09:30] VITALS: BP 145/101; TEMP 98.4; O2SAT 100
== END 2021-07-28 09:09 | disposition home or self-care (01) ==
LOC: ER 08:39
DX: Z48.02 Encounter for removal of sutures (principal)
CPT/HCPCS: 99283

== ENCOUNTER 2023-12-22 11:08 | Emergency (ER) | payer OTHER ==
--- OUTSIDE RECORDS SUMMARY | 2023-12-22 11:22 | XMS REPORT | Continuity of Care Document ---
Author Name Unknown Address [address] [facility] [address] [place] [address] [facility] thconnect Address [address] [facility] [address] [place] [address] Care Team Providers Care Clinical Data Coordinator Name Role Phone KAYLA GRIMES Primary Care Physician Unavailable KAYLA GRIMES Attending Clinician Adalgisa KATHY Alejandre Attending Clinician Unavailab Kathy Clancy Attending Clinician + [phone] Unknown, Attending Attending Clinician UnavailKayla Vasquez MD Attending Clinician EDDIE DAVIS Attending Clinician Unav Nicole Hernandez Attending Clinician Unavaila juan Barber MA, Alexandrea A Attending Clinician UnavailSebastian Jenkins PTA F Attending Clinician Unavaila LORENA Carrera Attending Clinician UnavailLORENA Starkey Attending Clinician UnavailEddie Barreto MD Attending Clinician + Doctor Unassigned, [place] Attending Clinician U Lorena Quiñonez MD Attending Clinician [phone] ZOHRA PRATER Attending Clinician Unavailable Zohra Stephen Attending Clinician [phone] Val Bell PT Attending Clinician UnavailDHARMESH Ribeiro Attending Clinician Unavailable Dharmesh Donahue Attending Clinician [phone] GORDON NORWOOD Attending Clinician Unavailable Gordon Norwood MD Attending Clinician BABATUNDE HERNÁNDEZ Attending Clinician Unavailable Tylor Newman MD Attending Clinician [phone] EDILIA NOLASCO Attending Clinician Unavailable Edilia Nolasco MD Attending Clinician +[phone] KADEN ANDREW Attending Clinician Unavailable Alena Johnson Attending Clinician [phone] SULMA VIZCARRA Attending Clinician Shani Magallanes [facility], Sheila Lovell Attending Clinician [phone] BREANNE BENAVIDES Attending Clinician Unavailable BREANNE BENAVIDES Attending Clinician Unavailable IVY THAKKAR Attending Clinician Unavaila juan PROPIvy Attending Clinician +[phone] AMARILIS BANUELOS Attending Clinician Unavailable Amarilis Banuelos NP Attending Clinician [phone] Kaden Andrew MD Attending Clinician [phone] PRIYANKA RIVERA Attending Clinician Unavailable Jena Veloz Attending Clinician U BERNARDO Mcconnell Attending Clinician Unavaila GAURAV Davison Attending Clinician Unavailable Gaurav Mendenhall Attending Clinician +[phone] Lab, Ang - Db Attending Clinician Unavailable ALENA MIN Attending Clinician Unavailable Thi Trent DO Attending Clinician +[phone] Gianni SHULTZ, K Carol Attending Clinician [phone] Barrington Berman MD Attending Clinician + [phone] Raymundo Dexter MD Attending Clinician + [phone] Daljit Velasco DO Attending Clinician + DALJIT VELASCO Attending Clinician Unavailable ZOHRA PRATER Admitting Clinician Unavailable DHARMESH HIGGINS Admitting Clinician Unavailable IVY THAKKAR Admitting Clinician Unavaila AMARILIS Wasserman Admitting Clinician Unavailable GAURAV ESPARZA Admitting Clinician Unavailable Raymundo Dexter MD Admitting Clinician + [phone] Payers Payer Name Policy Type Policy Number Effective Date Expirati on Date Source [place] [id number] 2023:00:00 TEDDY MARI[facility] [id number] 2022 00:00:00 2023 00:00:00 MEDICAID PENDING PENDING 2020 00:00:00 Problems Condition Name Condition Details Condition Category Status Onset Date Resolution Date Last Treatment Date Treating Clinician Comments Source Stomachach e Stomachach e Disease Active 03-08 00:00: 00 [facility] Dysuria Dysuria Disease Active 11-06 00:00: 00 [facility] Cervical radiculopa thy Cervical radiculopa thy Disease Active 11-06 00:00: 00 [facility] Encounter to establish care Encounter to establish care Disease Active 08-07 00:00: 00 [facility] Epigastric pain Epigastric pain Disease Active 08-07 00:00: 00 [facility] Nausea Nausea Disease Active 08-07 00:00: 00 [facility] Anxiety and depression Anxiety and depression Disease Active 08-07 00:00: 00 [facility] Vomiting Vomiting Disease Active 12-10 00:00: 00 [facility] No known active problems No known active problems Disease [facility] Allergies, Adverse Reactions, Alerts Allergy Name Allergy Type Status Severity Reaction(s) Onset Date Inactive Date Treating Clinician Comments Source NO KNOWN ALLERGIE S Drug Class Active [facility] Social History Social Habit Start Date Stop Date Quantity Comments Source Gender identity [facility] Sexual orientation [facility] History of tobacco use Cigarette Smoker [facility] Alcohol intake 2023-08-13 00:00:00 2023-08-13 00:00:00 Ex-drinker (finding) [facility] Alcoholic beverage intake 2023-08-13 00:00:00 2023-08-13 00:00:00 Ex-drinker (finding) [facility] History of Social function 2023-05-16 00:00:00 2023-05-16 00:00:00 [facility] Exposure to SARS-CoV-2 (event) 2022-11-25 00:00:00 2022-12-05 09:48:00 Not sure [facility] Tobacco use and exposure 2022-08-07 00:00:00 2022-08-07 00:00:00 Smokeless tobacco non-user [facility] Tobacco Comment 2022-08-07 00:00:00 2022-08-07 00:00:00 quit 3 months ago [facility] Cigarettes smoked current (pack per day) - Reported 2022-08-07 00:00:00 2022-08-07 00:00:00 [facility] Cigarette pack-years 2022-08-07 00:00:00 2022-08-07 00:00:00 [facility] Sex assigned at 1995 00:00:00 1995 00:00:00 [facility] Smoking Status Start Date Stop Date Source Ex-smoker 2022-08-07 00:00:00 2022-08-07 [facility] day [facility]oker 2017-06-22 00:00:00 [facility] Medications Ordered Medication Name Filled Medication Name Start Date Stop Date Current Medication? Ordering Clinician Indication Dosage Frequency Signature (SIG) Comments Components Source valACYclovi r 500 mg tablet 12-19 00:00: 00 12-25 04:59 :00 Yes [id number] 1000mg Take 2 tablets by mouth in the morning for 5 days. [facility] permethrin 5 % cream 12-19 00:00: 00 12-20 04:59 :00 Yes [id number] Apply to area(s) once now for 1 dose. Apply cream from head to feet, leave on for 8 to 14 hours, then wash with soap/water , repeat applicatio n if living mites present 14 days after initial treatment [facility] valACYclovi r (VALTREX) 500 mg tablet 12-04 00:00: 00 Yes [id number] 500mg Take 1 tablet by mouth in the morning and 1 tablet in the evening. [facility] pantoprazol e 40 mg EC tablet 10-08 00:00: 00 Yes [id number] 40mg Take 1 tablet by mouth in the morning. [facility] famotidine (PEPCID AC) tablet 20 mg 08-12 23:00: 00 08-12 22:59 :00 No 20mg 20 mg, Oral, ONCE, 1 dose, On Sat08/12/23 at 1700, JOJO [facility] ondansetron (ZOFRAN-ODT ) disintegrat ing tablet 4 mg 08-12 22:56: 00 08-12 22:59 :00 No 4mg 4 mg, Oral, ONCE, 1 dose, On Sat08/12/23 at 1700, JOJO [facility] maalox:diph enhydrAMINE :lidocaine 2 % viscous 1:1:1 (FIRST-MOUT HWASH BLM) oral suspension 15 mL 08-12 22:30: 00 08-12 22:54 :00 No 15mL 15 mL, Oral, ONCE, 1 dose, On Sat08/12/23 at 1630, Routine [facility] ondansetron 4 mg disintegrat ing tablet 08-12 00:00: 00 Yes [id number] 4mg Take 1 tablet by mouth every 8 (eight) hours as needed for Nausea and Vomiting (N/V). [facility] aluminum & magnesium hydroxide-s imethicone 400-400-40 mg/5 mL suspension 08-12 00:00: 00 Yes [id number] 10mL Take 10 mL by mouth every 8 (eight) hours as needed for Indigestio n. [facility] methylPREDN ISolone 4 mg tablets 2022-07 00:00: 00 Yes [id number] Take by mouth SEE-INSTRU CTIONS. follow package directions [facility] cyclobenzap rine 5 mg tablet 2022-07 00:00: 00 07-20 05:59 :00 No [id number] 5mg Take 1 tablet by mouth in the morning and 1 tablet at noon and 1 tablet in the evening. Do all this for 14 days. [facility] SERTraline 100 mg tablet 2022-07 2-06 00:00: 00 Yes 100mg Take 1 tablet by mouth at bedtime. [facility] ARIPiprazol e 5 mg tablet 2022-07 2-06 00:00: 00 Yes 5mg Take 1 tablet by mouth at bedtime. [facility] busPIRone 30 mg tablet 2022-07 0-24 10:55: 16 Yes 30mg Take 1 tablet by mouth in the morning and 1 tablet at noon and 1 tablet in the evening. [facility] valACYclovi r 500 mg tablet 2022-07 017 16:09: 58 04-23 00:00 :00 No 500mg Take 1 tablet by mouth in the morning. [facility] valACYclovi r 500 mg tablet 2022-07 0 00:00: 00 04-29 04:59 :00 No [id number] 500mg Take 1 tablet by mouth in the morning and 1 tablet in the evening. Do all this for 5 days. [facility] metroNIDAZO LE 500 mg tablet 2022-07 017 00:00: 00 04-24 04:59 :00 No [id number] 2000mg Take 4 tablets by mouth once now for 1 dose. [facility] pantoprazol e 40 mg EC tablet 9-05 00:00: 00 10-08 00:00 :00 No [id number] 40mg Take 1 tablet by mouth in the morning. [facility] SERTraline 50 mg tablet 8-03 00:00: 00 Yes 50mg Take 1 tablet by mouth at bedtime. [facility] SERTraline 50 mg tablet 8-03 00:00: 00 Yes 100mg Take 2 tablets by mouth at bedtime. [facility] busPIRone 10 mg tablet 7-15 00:00: 00 Yes 10mg Take 1 tablet by mouth in the morning and 1 tablet in the evening. [facility] busPIRone 10 mg tablet 7-15 00:00: 00 04-30 00:00 :00 No 15mg Take 1.5 tablets by mouth in the morning and 1.5 tablets in the evening. [facility] Methylcellu lose, with Sugar, (CITRUCEL, SUCROSE,) powder 01-03 00:00: 00 Yes [id number] 3g Take 3 g by mouth in the morning and 3 g in the evening. [facility] omeprazole 40 mg capsule 01-03 00:00: 00 Yes [id number] 40mg Take 1 capsule by mouth 2 (two) times daily before breakfast and dinner. [facility] Phenyleph-P ramoxin-Gly cr-W.Pet 0.25-1 % Crea 01-03 00:00: 00 Yes [id number] Apply to area(s) 2 (two) times daily. [facility] pantoprazol e 40 mg EC tablet 12-31 00:00: 00 01-03 00:00 :00 No [id number] 40mg Take 1 tablet by mouth in the morning. [facility] SERTraline (ZOLOFT) 25 mg tablet 12-13 00:00: 00 03-12 00:00 :00 No [id number] 12.5mg Take 0.5 tablets by mouth in the morning. [facility] busPIRone 5 mg tablet 12-12 00:00: 00 03-12 00:00 :00 No [id number] 5mg Take 1 tablet by mouth in the morning and 1 tablet in the evening. [facility] SERTraline (ZOLOFT) 50 mg tablet 12-12 00:00: 00 12-13 00:00 :00 No [id number] Take 0.5 tablets by mouth daily for 8 days, THEN 1 tablet daily for 30 days. [facility] acetaminoph en (TYLENOL) tablet 1,000 mg 12-12 00:00: 00 12-11 23:38 :00 No 1000mg 1,000 mg, Oral, ONCE, 1 dose, On Sat12/11/22 at 1900, Routine [facility] NaCl 0.9% (NS) bolus infusion 1,000 mL 12-11 23:45: 00 12-12 01:19 :00 No 1000mL at 999 mL/hr, 1,000 mL, IV Infusion, ONCE, 1 dose, [facility] Sat12/11/22 at 1845[facility] 30 mg 12-11 23:45: 00 12-11 23:38 :00 No 30mg 30 mg, Slow IV Push, ONCE, 1 dose, On Sat12/11/22 at 1845, [facility] hydrOXYzine (ATARAX) tablet 50 mg 12-11 23:00: 00 12-11 23:38 :00 No 50mg 50 mg, Oral, ONCE, 1 dose, On Sat12/11/22 at 1800, [facility] hydrOXYzine 50 mg tablet 12-11 00:00: 00 Yes [id number] 50mg Take 1 tablet by mouth every 8 (eight) hours as needed for Anxiety. [facility] ibuprofen 600 mg tablet 12-11 00:00: 00 01-03 00:00 :00 No [id number] 600mg Take 1 tablet by mouth every 6 (six) hours as needed for Pain (scale 4-6). [facility] ketorolac (TORADOL) injection 30 mg 12-08 23:45: 00 12-08 23:01 :00 No 30mg 30 mg, Slow IV Push, ONCE, 1 dose, On Sat12/08/22 at 1845, Routine [facility] NaCl 0.9% (NS) IV infusion 1,000 mL 12-08 21:45: 00 Yes 1000mL at 999 mL/hr, Intravenou s, CONTINUOUS , Starting on Sat12/08/22 at 1645, Until Discontinu ed, [facility] gabapentin 300 mg capsule 5-31 00:00: 00 12-27 04:59 :00 No [id number] 300mg Take 1 capsule by mouth in the morning and 1 capsule at noon and 1 capsule in the evening. Do all this for 21 days. [facility] valACYclovi r 500 mg tablet 11-27 15:38: 27 Yes 500mg Take 1 tablet by mouth in the morning. [facility] ketorolac (TORADOL) injection 30 mg 11-14 02:30: 00 11-14 01:44 :00 No 30mg 30 mg, Slow IV Push, ONCE, 1 dose, On Sat11/13/22 at 2130, JOJO [facility] ibuprofen 800 mg tablet 11-13 00:00: 00 12-12 00:00 :00 No [id number] 800mg Take 1 tablet by mouth in the morning and 1 tablet at noon and 1 tablet in the evening. Take with meals. [facility] cyclobenzap rine 5 mg tablet 11-06 00:00: 00 Yes [id number] 5mg Take 1 tablet by mouth in the morning and 1 tablet at noon and 1 tablet in the evening. [facility] methylPREDN ISolone (MEDROL, TRAV,) 4 mg tablets 11-06 00:00: 00 11-12 04:59 :00 No [id number] Take by mouth SEE-INSTRU CTIONS for 5 days. follow package directions [facility] pantoprazol e 40 mg EC tablet 10-23 00:00: 00 12-31 00:00 :00 No [id number] 40mg Take 1 tablet by mouth in the morning. [facility] famotidine (PEPCID ORAL) 08-07 13:33: 27 08-07 00:00 :00 No Take by mouth. [facility] ondansetron (ZOFRAN) 4 mg tablet 08-07 00:00: 00 Yes [id number] 4mg Take 1 tablet by mouth every 8 (eight) hours as needed for Nausea and Vomiting (N/V). [facility] pantoprazol e 40 mg EC tablet 08-07 00:00: 00 10-23 00:00 :00 No [id number] 40mg Take 1 tablet by mouth in the morning. [facility] famotidine 20 mg in NS 50 ml (PEPCID) 20 mg/50 mL Piggyback 20 mg 12-28 19:45: 00 12-28 19:31 :00 No 20mg 20 mg, IV Piggyback, ONCE, 1 dose, Sat12/28/20 at 1445, 50 mL [facility] NaCl 0.9% (NS) bolus infusion 1,000 mL 12-28 19:30: 00 12-28 19:31 :00 No 1000mL at 999 mL/hr, 1,000 mL, IV Infusion, ONCE, 1 dose, Sat12/28/20 at 1430, STAT [facility] iopamidol (ISOVUE 370-500 mL) injection 120 mL 12-28 18:40: 00 12-28 18:40 :00 No [id number] 120mL 120 mL, Intravenou s, ONCE, 1 dose, Sat12/28/20 at 1400, Routine [facility] ondansetron (ZOFRAN (PF)) injection 4 mg 12-28 18:30: 00 12-28 17:42 :00 No 4mg 4 mg, Slow IV Push, ONCE, 1 dose, Sat12/28/20 at 1330, JOJO [facility] ondansetron (ZOFRAN ODT) 4 mg disintegrat ing tablet 12-28 00:00: 00 08-07 00:00 :00 No [id number] 4mg Take 1 tablet by mouth every 8 (eight) hours as needed for Nausea and Vomiting (N/V). [facility] enoxaparin (LOVENOX) injection 30 mg 12-10 22:00: 00 Yes 30mg 30 mg, Subcutaneo us, DAILY, First dose on 12/10/20 at 1700, Until Discontinu ed, Routine [facility] lactated ringers IV infusion 1,000 mL 12-10 16:00: 00 Yes 1000mL at 100 mL/hr, 1,000 mL, IV Infusion, CONTINUOUS , Starting 12/10/20 at 1100, Until Discontinu ed, Routine [facility] acetaminoph en (TYLENOL) tablet 650 mg 12-10 14:58: 36 Yes 650mg 650 mg, Oral, Q6HPRN, Starting 12/10/20 at 0958, Until Discontinu ed, Routine, Pain (scale 1-3) [facility] ondansetron (ZOFRAN (PF)) injection 4 mg 12-10 13:00: 00 12-10 12:15 :00 No 4mg 4 mg, Slow IV Push, ONCE, 1 dose, 12/10/20 at 0800, JOJO [facility] NaCl 0.9% (NS) bolus infusion 1,000 mL 12-10 12:00: 00 12-10 12:15 :00 No 1000mL at 999 mL/hr, 1,000 mL, IV Infusion, ONCE, 1 dose, 12/10/20 at 0700, JOJO [facility] chlorhexidi ne 0.12 % mouthwash 11-21 00:00: 00 12-10 00:00 :00 No [id number] 15mL Swish and spit out 15 mL 2 (two) times daily. [facility] methylPREDN ISolone (MEDROL, TRAV,) 4 mg tablets 11-21 00:00: 00 12-10 00:00 :00 No [id number] Take by mouth SEE-INSTRU CTIONS. follow package directions [facility] acetaminoph en-codeine (TYLENOL-CO DEINE #3) 300-30 mg tablet 11-21 00:00: 00 12-10 00:00 :00 No [id number]{tbl} Take 1 tablet by mouth every 4 (four) hours as needed for Pain (scale 7-10). Indication s: acute pain [facility] ondansetron 4 mg disintegrat ing tablet 11-21 00:00: 00 12-10 00:00 :00 No [id number] 4mg Take 1 tablet by mouth every 8 (eight) hours as needed for Nausea and Vomiting (N/V). [facility] clindamycin 150 mg capsule 517 00:00: 00 11-29 04:59 :00 No [id number] 300mg Take 2 capsules by mouth 4 (four) times daily for 7 days. [facility] azithromyci n (ZITHROMAX Z-TRAV) 250 mg tablet 4-10 00:00: 00 12-10 00:00 :00 No [id number] 250mg Take 1 tablet by mouth SEE-INSTRU CTIONS. Take 500 mg day 1, then 250 mg days 2 to 5. [facility] dextrometho rphan-guaif enesin 10-100 mg/5 mL solution 4-10 00:00: 00 12-10 00:00 :00 No [id number] 10mL Take 10 mL by mouth every 6 (six) hours as needed for Cough. [facility] ibuprofen 800 mg tablet 4-10 00:00: 00 12-10 00:00 :00 No [id number] 800mg Take 1 tablet by mouth every 8 (eight) hours. [facility] cyclobenzap rine 5 mg tablet 2017-07 031 00:00: 00 12-10 00:00 :00 No 5mg Take 1 tablet by mouth 3 (three) times daily. [facility] CATAFLAM 50 mg tablet 2014-0718 00:00: 00 12-10 00:00 :00 No 50mg Take 1 Tab by mouth 3 (three) times daily. [facility] Immunizations Ordered Immunization Name Filled Immunization Name Date Status Comments Source Hepatitis A Adult 2011-08-29 00:00:00 Completed [facility] Hepatitis A Adult 2011-08-29 00:00:00 Completed [facility] Hepatitis A Adult 2011-08-29 00:00:00 Completed [facility] Hepatitis A Adult 2011-08-29 00:00:00 Completed [facility] Hepatitis A Adult 2011-08-29 00:00:00 Completed [facility] Hepatitis A Adult 2011-08-29 00:00:00 Completed [facility] Hepatitis A Adult 2011-08-29 00:00:00 Completed [facility] Hepatitis A Adult 2011-08-29 00:00:00 Completed [facility] Hepatitis A Adult 2011-08-29 00:00:00 Completed [facility] Hepatitis A Adult 2011-08-29 00:00:00 Completed [facility] Hepatitis A Adult 2011-08-29 00:00:00 Completed [facility] Hepatitis A Adult 2011-08-29 00:00:00 Completed [facility] Hepatitis A Adult 2011-08-29 00:00:00 Completed [facility] Hepatitis A Adult 2011-08-29 00:00:00 Completed [facility] Hepatitis A Adult 2011-08-29 00:00:00 Completed [facility] Hepatitis A Adult 2011-08-29 00:00:00 Completed [facility] Hepatitis A Adult 2011-08-29 00:00:00 Completed [facility] Hepatitis A Adult 2011-08-29 00:00:00 Completed [facility] Hepatitis A Adult 2011-08-29 00:00:00 Completed [facility] Hepatitis A Adult 2011-08-29 00:00:00 Completed [facility] Hepatitis A Adult 2011-08-29 00:00:00 Completed [facility] Hepatitis A Adult 2011-08-29 00:00:00 Completed [facility] Hepatitis A Adult 2011-08-29 00:00:00 Completed [facility] Hepatitis A Adult 2011-08-29 00:00:00 Completed [facility] Hepatitis A Adult 2011-08-29 00:00:00 Completed [facility] Hepatitis A Adult 2011-08-29 00:00:00 Completed [facility] Hepatitis A Adult 2011-08-29 00:00:00 Completed [facility] Hepatitis A Adult 2011-08-29 00:00:00 Completed [facility] Meningococcal Polysaccharide (groups A, C, Y and W-135) conjugate vaccine (MCV4P) 2009-02-28 00:00:00 Completed [facility] TDAP 2009-02-28 00:00:00 Completed [facility] Varicella (varivax)(chicken pox) 2009-02-28 00:00:00 Completed [facility] HEPATITIS A 2009-02-28 00:00:00 Completed [facility] Meningococcal Polysaccharide (groups A, C, Y and W-135) conjugate vaccine (MCV4P) 2009-02-28 00:00:00 Completed [facility] TDAP 2009-02-28 00:00:00 Completed [facility] Varicella (varivax)(chicken pox) 2009-02-28 00:00:00 Completed [facility] HEPATITIS A 2009-02-28 00:00:00 Completed [facility] Meningococcal Polysaccharide (groups A, C, Y and W-135) conjugate vaccine (MCV4P) 2009-02-28 00:00:00 Completed [facility] TDAP 2009-02-28 00:00:00 Completed [facility] Varicella (varivax)(chicken pox) 2009-02-28 00:00:00 Completed [facility] HEPATITIS A 2009-02-28 00:00:00 Completed [facility] Meningococcal Polysaccharide (groups A, C, Y and W-135) conjugate vaccine (MCV4P) 2009-02-28 00:00:00 Completed [facility] TDAP 2009-02-28 00:00:00 Completed [facility] Varicella (varivax)(chicken pox) 2009-02-28 00:00:00 Completed [facility] HEPATITIS A 2009-02-28 00:00:00 Completed [facility] Meningococcal Polysaccharide (groups A, C, Y and W-135) conjugate vaccine (MCV4P) 2009-02-28 00:00:00 Completed [facility] TDAP 2009-02-28 00:00:00 Completed [facility] Varicella (varivax)(chicken pox) 2009-02-28 00:00:00 Completed [facility] HEPATITIS A 2009-02-28 00:00:00 Completed [facility] Meningococcal Polysaccharide (groups A, C, Y and W-135) conjugate vaccine (MCV4P) 2009-02-28 00:00:00 Completed [facility] TDAP 2009-02-28 00:00:00 Completed [facility] Varicella (varivax)(chicken pox) 2009-02-28 00:00:00 Completed [facility] HEPATITIS A 2009-02-28 00:00:00 Completed [facility] Meningococcal Polysaccharide (groups A, C, Y and W-135) conjugate vaccine (MCV4P) 2009-02-28 00:00:00 Completed [facility] TDAP 2009-02-28 00:00:00 Completed [facility] Varicella (varivax)(chicken pox) 2009-02-28 00:00:00 Completed [facility] HEPATITIS A 2009-02-28 00:00:00 Completed [facility] Meningococcal Polysaccharide (groups A, C, Y and W-135) conjugate vaccine (MCV4P) 2009-02-28 00:00:00 Completed [facility] TDAP 2009-02-28 00:00:00 Completed [facility] Varicella (varivax)(chicken pox) 2009-02-28 00:00:00 Completed [facility] HEPATITIS A 2009-02-28 00:00:00 Completed [facility] Meningococcal Polysaccharide (groups A, C, Y and W-135) conjugate vaccine (MCV4P) 2009-02-28 00:00:00 Completed [facility] TDAP 2009-02-28 00:00:00 Completed [facility] Varicella (varivax)(chicken pox) 2009-02-28 00:00:00 Completed [facility] HEPATITIS A 2009-02-28 00:00:00 Completed [facility] Meningococcal Polysaccharide (groups A, C, Y and W-135) conjugate vaccine (MCV4P) 2009-02-28 00:00:00 Completed [facility] TDAP 2009-02-28 00:00:00 Completed [facility] Varicella (varivax)(chicken pox) 2009-02-28 00:00:00 Completed [facility] HEPATITIS A 2009-02-28 00:00:00 Completed [facility] Meningococcal Polysaccharide (groups A, C, Y and W-135) conjugate vaccine (MCV4P) 2009-02-28 00:00:00 Completed [facility] TDAP 2009-02-28 00:00:00 Completed [facility] Varicella (varivax)(chicken pox) 2009-02-28 00:00:00 Completed [facility] HEPATITIS A 2009-02-28 00:00:00 Completed [facility] Meningococcal Polysaccharide (groups A, C, Y and W-135) conjugate vaccine (MCV4P) 2009-02-28 00:00:00 Completed [facility] TDAP 2009-02-28 00:00:00 Completed [facility] Varicella (varivax)(chicken pox) 2009-02-28 00:00:00 Completed [facility] HEPATITIS A 2009-02-28 00:00:00 Completed [facility] Meningococcal Polysaccharide (groups A, C, Y and W-135) conjugate vaccine (MCV4P) 2009-02-28 00:00:00 Completed [facility] TDAP 2009-02-28 00:00:00 Completed [facility] Varicella (varivax)(chicken pox) 2009-02-28 00:00:00 Completed [facility] HEPATITIS A 2009-02-28 00:00:00 Completed [facility] Meningococcal Polysaccharide (groups A, C, Y and W-135) conjugate vaccine (MCV4P) 2009-02-28 00:00:00 Completed [facility] TDAP 2009-02-28 00:00:00 Completed [facility] Varicella (varivax)(chicken pox) 2009-02-28 00:00:00 Completed [facility] HEPATITIS A 2009-02-28 00:00:00 Completed [facility] Meningococcal Polysaccharide (groups A, C, Y and W-135) conjugate vaccine (MCV4P) 2009-02-28 00:00:00 Completed [facility] TDAP 2009-02-28 00:00:00 Completed [facility] Varicella (varivax)(chicken pox) 2009-02-28 00:00:00 Completed [facility] HEPATITIS A 2009-02-28 00:00:00 Completed [facility] Meningococcal Polysaccharide (groups A, C, Y and W-135) conjugate vaccine (MCV4P) 2009-02-28 00:00:00 Completed [facility] TDAP 2009-02-28 00:00:00 Completed [facility] Varicella (varivax)(chicken pox) 2009-02-28 00:00:00 Completed [facility] HEPATITIS A 2009-02-28 00:00:00 Completed [facility] Meningococcal Polysaccharide (groups A, C, Y and W-135) conjugate vaccine (MCV4P) 2009-02-28 00:00:00 Completed [facility] TDAP 2009-02-28 00:00:00 Completed [facility] Varicella (varivax)(chicken pox) 2009-02-28 00:00:00 Completed [facility] HEPATITIS A 2009-02-28 00:00:00 Completed [facility] Meningococcal Polysaccharide (groups A, C, Y and W-135) conjugate vaccine (MCV4P) 2009-02-28 00:00:00 Completed [facility] TDAP 2009-02-28 00:00:00 Completed [facility] Varicella (varivax)(chicken pox) 2009-02-28 00:00:00 Completed [facility] HEPATITIS A 2009-02-28 00:00:00 Completed [facility] Meningococcal Polysaccharide (groups A, C, Y and W-135) conjugate vaccine (MCV4P) 2009-02-28 00:00:00 Completed [facility] TDAP 2009-02-28 00:00:00 Completed [facility] Varicella (varivax)(chicken pox) 2009-02-28 00:00:00 Completed [facility] HEPATITIS A 2009-02-28 00:00:00 Completed [facility] Meningococcal Polysaccharide (groups A, C, Y and W-135) conjugate vaccine (MCV4P) 2009-02-28 00:00:00 Completed [facility] TDAP 2009-02-28 00:00:00 Completed [facility] Varicella (varivax)(chicken pox) 2009-02-28 00:00:00 Completed [facility] HEPATITIS A 2009-02-28 00:00:00 Completed [facility] Meningococcal Polysaccharide (groups A, C, Y and W-135) conjugate vaccine (MCV4P) 2009-02-28 00:00:00 Completed [facility] TDAP 2009-02-28 00:00:00 Completed [facility] Varicella (varivax)(chicken pox) 2009-02-28 00:00:00 Completed [facility] HEPATITIS A 2009-02-28 00:00:00 Completed [facility] Meningococcal Polysaccharide (groups A, C, Y and W-135) conjugate vaccine (MCV4P) 2009-02-28 00:00:00 Completed [facility] TDAP 2009-02-28 00:00:00 Completed [facility] Varicella (varivax)(chicken pox) 2009-02-28 00:00:00 Completed [facility] HEPATITIS A 2009-02-28 00:00:00 Completed [facility] Meningococcal Polysaccharide (groups A, C, Y and W-135) conjugate vaccine (MCV4P) 2009-02-28 00:00:00 Completed [facility] TDAP 2009-02-28 00:00:00 Completed [facility] Varicella (varivax)(chicken pox) 2009-02-28 00:00:00 Completed [facility] HEPATITIS A 2009-02-28 00:00:00 Completed [facility] Meningococcal Polysaccharide (groups A, C, Y and W-135) conjugate vaccine (MCV4P) 2009-02-28 00:00:00 Completed [facility] TDAP 2009-02-28 00:00:00 Completed [facility] Varicella (varivax)(chicken pox) 2009-02-28 00:00:00 Completed [facility] HEPATITIS A 2009-02-28 00:00:00 Completed [facility] Meningococcal Polysaccharide (groups A, C, Y and W-135) conjugate vaccine (MCV4P) 2009-02-28 00:00:00 Completed [facility] TDAP 2009-02-28 00:00:00 Completed [facility] Varicella (varivax)(chicken pox) 2009-02-28 00:00:00 Completed [facility] HEPATITIS A 2009-02-28 00:00:00 Completed [facility] Meningococcal Polysaccharide (groups A, C, Y and W-135) conjugate vaccine (MCV4P) 2009-02-28 00:00:00 Completed [facility] TDAP 2009-02-28 00:00:00 Completed [facility] Varicella (varivax)(chicken pox) 2009-02-28 00:00:00 Completed [facility] HEPATITIS A 2009-02-28 00:00:00 Completed [facility] Meningococcal Polysaccharide (groups A, C, Y and W-135) conjugate vaccine (MCV4P) 2009-02-28 00:00:00 Completed [facility] TDAP 2009-02-28 00:00:00 Completed [facility] Varicella (varivax)(chicken pox) 2009-02-28 00:00:00 Completed [facility] HEPATITIS A 2009-02-28 00:00:00 Completed [facility] Meningococcal Polysaccharide (groups A, C, Y and W-135) conjugate vaccine (MCV4P) 2009-02-28 00:00:00 Completed [facility] TDAP 2009-02-28 00:00:00 Completed [facility] Varicella (varivax)(chicken pox) 2009-02-28 00:00:00 Completed [facility] HEPATITIS A 2009-02-28 00:00:00 Completed [facility] Poliovirus, Live, Oral, Trivalent 1999-04-26 00:00:00 Completed [facility] DTaP, Unspecified Formulation 1999-04-26 00:00:00 Completed [facility] Hep B, Adol or Pedi Dosage 1999-04-26 00:00:00 Completed [facility] Poliovirus, Live, Oral, Trivalent 1999-04-26 00:00:00 Completed [facility] DTaP, Unspecified Formulation 1999-04-26 00:00:00 Completed [facility] Hep B, Adol or Pedi Dosage 1999-04-26 00:00:00 Completed [facility] Poliovirus, Live, Oral, Trivalent 1999-04-26 00:00:00 Completed [facility] DTaP, Unspecified Formulation 1999-04-26 00:00:00 Completed [facility] Hep B, Adol or Pedi Dosage 1999-04-26 00:00:00 Completed [facility] Poliovirus, Live, Oral, Trivalent 1999-04-26 00:00:00 Completed [facility] DTaP, Unspecified Formulation 1999-04-26 00:00:00 Completed [facility] Hep B, Adol or Pedi Dosage 1999-04-26 00:00:00 Completed [facility] Poliovirus, Live, Oral, Trivalent 1999-04-26 00:00:00 Completed [facility] DTaP, Unspecified Formulation 1999-04-26 00:00:00 Completed [facility] Hep B, Adol or Pedi Dosage 1999-04-26 00:00:00 Completed [facility] Poliovirus, Live, Oral, Trivalent 1999-04-26 00:00:00 Completed [facility] DTaP, Unspecified Formulation 1999-04-26 00:00:00 Completed [facility] Hep B, Adol or Pedi Dosage 1999-04-26 00:00:00 Completed [facility] Poliovirus, Live, Oral, Trivalent 1999-04-26 00:00:00 Completed [facility] DTaP, Unspecified Formulation 1999-04-26 00:00:00 Completed [facility] Hep B, Adol or Pedi Dosage 1999-04-26 00:00:00 Completed [facility] Poliovirus, Live, Oral, Trivalent 1999-04-26 00:00:00 Completed [facility] DTaP, Unspecified Formulation 1999-04-26 00:00:00 Completed [facility] Hep B, Adol or Pedi Dosage 1999-04-26 00:00:00 Completed [facility] Poliovirus, Live, Oral, Trivalent 1999-04-26 00:00:00 Completed [facility] DTaP, Unspecified Formulation 1999-04-26 00:00:00 Completed [facility] Hep B, Adol or Pedi Dosage 1999-04-26 00:00:00 Completed [facility] Poliovirus, Live, Oral, Trivalent 1999-04-26 00:00:00 Completed [facility] DTaP, Unspecified Formulation 1999-04-26 00:00:00 Completed [facility] Hep B, Adol or Pedi Dosage 1999-04-26 00:00:00 Completed [facility] Poliovirus, Live, Oral, Trivalent 1999-04-26 00:00:00 Completed [facility] DTaP, Unspecified Formulation 1999-04-26 00:00:00 Completed [facility] Hep B, Adol or Pedi Dosage 1999-04-26 00:00:00 Completed [facility] Poliovirus, Live, Oral, Trivalent 1999-04-26 00:00:00 Completed [facility] DTaP, Unspecified Formulation 1999-04-26 00:00:00 Completed [facility] Hep B, Adol or Pedi Dosage 1999-04-26 00:00:00 Completed [facility] Poliovirus, Live, Oral, Trivalent 1999-04-26 00:00:00 Completed [facility] DTaP, Unspecified Formulation 1999-04-26 00:00:00 Completed [facility] Hep B, Adol or Pedi Dosage 1999-04-26 00:00:00 Completed [facility] Poliovirus, Live, Oral, Trivalent 1999-04-26 00:00:00 Completed [facility] DTaP, Unspecified Formulation 1999-04-26 00:00:00 Completed [facility] Hep B, Adol or Pedi Dosage 1999-04-26 00:00:00 Completed [facility] Poliovirus, Live, Oral, Trivalent 1999-04-26 00:00:00 Completed [facility] DTaP, Unspecified Formulation 1999-04-26 00:00:00 Completed [facility] Hep B, Adol or Pedi Dosage 1999-04-26 00:00:00 Completed [facility] Poliovirus, Live, Oral, Trivalent 1999-04-26 00:00:00 Completed [facility] DTaP, Unspecified Formulation 1999-04-26 00:00:00 Completed [facility] Hep B, Adol or Pedi Dosage 1999-04-26 00:00:00 Completed [facility] Poliovirus, Live, Oral, Trivalent 1999-04-26 00:00:00 Completed [facility] DTaP, Unspecified Formulation 1999-04-26 00:00:00 Completed [facility] Hep B, Adol or Pedi Dosage 1999-04-26 00:00:00 Completed [facility] Poliovirus, Live, Oral, Trivalent 1999-04-26 00:00:00 Completed [facility] DTaP, Unspecified Formulation 1999-04-26 00:00:00 Completed [facility] Hep B, Adol or Pedi Dosage 1999-04-26 00:00:00 Completed [facility] Poliovirus, Live, Oral, Trivalent 1999-04-26 00:00:00 Completed [facility] DTaP, Unspecified Formulation 1999-04-26 00:00:00 Completed [facility] Hep B, Adol or Pedi Dosage 1999-04-26 00:00:00 Completed [facility] Poliovirus, Live, Oral, Trivalent 1999-04-26 00:00:00 Completed [facility] DTaP, Unspecified Formulation 1999-04-26 00:00:00 Completed [facility] Hep B, Adol or Pedi Dosage 1999-04-26 00:00:00 Completed [facility] Poliovirus, Live, Oral, Trivalent 1999-04-26 00:00:00 Completed [facility] DTaP, Unspecified Formulation 1999-04-26 00:00:00 Completed [facility] Hep B, Adol or Pedi Dosage 1999-04-26 00:00:00 Completed [facility] Poliovirus, Live, Oral, Trivalent 1999-04-26 00:00:00 Completed [facility] DTaP, Unspecified Formulation 1999-04-26 00:00:00 Completed [facility] Hep B, Adol or Pedi Dosage 1999-04-26 00:00:00 Completed [facility] Poliovirus, Live, Oral, Trivalent 1999-04-26 00:00:00 Completed [facility] DTaP, Unspecified Formulation 1999-04-26 00:00:00 Completed [facility] Hep B, Adol or Pedi Dosage 1999-04-26 00:00:00 Completed [facility] Poliovirus, Live, Oral, Trivalent 1999-04-26 00:00:00 Completed [facility] DTaP, Unspecified Formulation 1999-04-26 00:00:00 Completed [facility] Hep B, Adol or Pedi Dosage 1999-04-26 00:00:00 Completed [facility] Poliovirus, Live, Oral, Trivalent 1999-04-26 00:00:00 Completed [facility] DTaP, Unspecified Formulation 1999-04-26 00:00:00 Completed [facility] Hep B, Adol or Pedi Dosage 1999-04-26 00:00:00 Completed [facility] Poliovirus, Live, Oral, Trivalent 1999-04-26 00:00:00 Completed [facility] DTaP, Unspecified Formulation 1999-04-26 00:00:00 Completed [facility] Hep B, Adol or Pedi Dosage 1999-04-26 00:00:00 Completed [facility] Poliovirus, Live, Oral, Trivalent 1999-04-26 00:00:00 Completed [facility] DTaP, Unspecified Formulation 1999-04-26 00:00:00 Completed [facility] Hep B, Adol or Pedi Dosage 1999-04-26 00:00:00 Completed [facility] Poliovirus, Live, Oral, Trivalent 1999-04-26 00:00:00 Completed [facility] DTaP, Unspecified Formulation 1999-04-26 00:00:00 Completed [facility] Hep B, Adol or Pedi Dosage 1999-04-26 00:00:00 Completed [facility] DTaP, Unspecified Formulation 1998-05-04 00:00:00 Completed [facility] DTaP, Unspecified Formulation 1998-05-04 00:00:00 Completed [facility] DTaP, Unspecified Formulation 1998-05-04 00:00:00 Completed [facility] DTaP, Unspecified Formulation 1998-05-04 00:00:00 Completed [facility] DTaP, Unspecified Formulation 1998-05-04 00:00:00 Completed [facility] DTaP, Unspecified Formulation 1998-05-04 00:00:00 Completed [facility] DTaP, Unspecified Formulation 1998-05-04 00:00:00 Completed [facility] DTaP, Unspecified Formulation 1998-05-04 00:00:00 Completed [facility] DTaP, Unspecified Formulation 1998-05-04 00:00:00 Completed [facility] DTaP, Unspecified Formulation 1998-05-04 00:00:00 Completed [facility] DTaP, Unspecified Formulation 1998-05-04 00:00:00 Completed [facility] DTaP, Unspecified Formulation 1998-05-04 00:00:00 Completed [facility] DTaP, Unspecified Formulation 1998-05-04 00:00:00 Completed [facility] DTaP, Unspecified Formulation 1998-05-04 00:00:00 Completed [facility] DTaP, Unspecified Formulation 1998-05-04 00:00:00 Completed [facility] DTaP, Unspecified Formulation 1998-05-04 00:00:00 Completed [facility] DTaP, Unspecified Formulation 1998-05-04 00:00:00 Completed [facility] DTaP, Unspecified Formulation 1998-05-04 00:00:00 Completed [facility] DTaP, Unspecified Formulation 1998-05-04 00:00:00 Completed [facility] DTaP, Unspecified Formulation 1998-05-04 00:00:00 Completed [facility] DTaP, Unspecified Formulation 1998-05-04 00:00:00 Completed [facility] DTaP, Unspecified Formulation 1998-05-04 00:00:00 Completed [facility] DTaP, Unspecified Formulation 1998-05-04 00:00:00 Completed [facility] DTaP, Unspecified Formulation 1998-05-04 00:00:00 Completed [facility] DTaP, Unspecified Formulation 1998-05-04 00:00:00 Completed [facility] DTaP, Unspecified Formulation 1998-05-04 00:00:00 Completed [facility] DTaP, Unspecified Formulation 1998-05-04 00:00:00 Completed [facility] DTaP, Unspecified Formulation 1998-05-04 00:00:00 Completed [facility] Haemophilus influenzae type b vaccine, conjugate unspecified formulation 1998-03-03 00:00:00 Completed [facility] MMR 1998-03-03 00:00:00 Completed [facility] Poliovirus, Live, Oral, Trivalent 1998-03-03 00:00:00 Completed [facility] DTaP, Unspecified Formulation 1998-03-03 00:00:00 Completed [facility] Hep B, Adol or Pedi Dosage 1998-03-03 00:00:00 Completed [facility] Haemophilus influenzae type b vaccine, conjugate unspecified formulation 1998-03-03 00:00:00 Completed [facility] MMR 1998-03-03 00:00:00 Completed [facility] Poliovirus, Live, Oral, Trivalent 1998-03-03 00:00:00 Completed [facility] DTaP, Unspecified Formulation 1998-03-03 00:00:00 Completed [facility] Hep B, Adol or Pedi Dosage 1998-03-03 00:00:00 Completed [facility] Haemophilus influenzae type b vaccine, conjugate unspecified formulation 1998-03-03 00:00:00 Completed [facility] MMR 1998-03-03 00:00:00 Completed [facility] Poliovirus, Live, Oral, Trivalent 1998-03-03 00:00:00 Completed [facility] DTaP, Unspecified Formulation 1998-03-03 00:00:00 Completed [facility] Hep B, Adol or Pedi Dosage 1998-03-03 00:00:00 Completed [facility] Haemophilus influenzae type b vaccine, conjugate unspecified formulation 1998-03-03 00:00:00 Completed [facility] MMR 1998-03-03 00:00:00 Completed [facility] Poliovirus, Live, Oral, Trivalent 1998-03-03 00:00:00 Completed [facility] DTaP, Unspecified Formulation 1998-03-03 00:00:00 Completed [facility] Hep B, Adol or Pedi Dosage 1998-03-03 00:00:00 Completed [facility] Haemophilus influenzae type b vaccine, conjugate unspecified formulation 1998-03-03 00:00:00 Completed [facility] MMR 1998-03-03 00:00:00 Completed [facility] Poliovirus, Live, Oral, Trivalent 1998-03-03 00:00:00 Completed [facility] DTaP, Unspecified Formulation 1998-03-03 00:00:00 Completed [facility] Hep B, Adol or Pedi Dosage 1998-03-03 00:00:00 Completed [facility] Haemophilus influenzae type b vaccine, conjugate unspecified formulation 1998-03-03 00:00:00 Completed [facility] MMR 1998-03-03 00:00:00 Completed [facility] Poliovirus, Live, Oral, Trivalent 1998-03-03 00:00:00 Completed [facility] DTaP, Unspecified Formulation 1998-03-03 00:00:00 Completed [facility] Hep B, Adol or Pedi Dosage 1998-03-03 00:00:00 Completed [facility] Haemophilus influenzae type b vaccine, conjugate unspecified formulation 1998-03-03 00:00:00 Completed [facility] MMR 1998-03-03 00:00:00 Completed [facility] Poliovirus, Live, Oral, Trivalent 1998-03-03 00:00:00 Completed [facility] DTaP, Unspecified Formulation 1998-03-03 00:00:00 Completed [facility] Hep B, Adol or Pedi Dosage 1998-03-03 00:00:00 Completed [facility] Haemophilus influenzae type b vaccine, conjugate unspecified formulation 1998-03-03 00:00:00 Completed [facility] MMR 1998-03-03 00:00:00 Completed [facility] Poliovirus, Live, Oral, Trivalent 1998-03-03 00:00:00 Completed [facility] DTaP, Unspecified Formulation 1998-03-03 00:00:00 Completed [facility] Hep B, Adol or Pedi Dosage 1998-03-03 00:00:00 Completed [facility] Haemophilus influenzae type b vaccine, conjugate unspecified formulation 1998-03-03 00:00:00 Completed [facility] MMR 1998-03-03 00:00:00 Completed [facility] Poliovirus, Live, Oral, Trivalent 1998-03-03 00:00:00 Completed [facility] DTaP, Unspecified Formulation 1998-03-03 00:00:00 Completed [facility] Hep B, Adol or Pedi Dosage 1998-03-03 00:00:00 Completed [facility] Haemophilus influenzae type b vaccine, conjugate unspecified formulation 1998-03-03 00:00:00 Completed [facility] MMR 1998-03-03 00:00:00 Completed [facility] Poliovirus, Live, Oral, Trivalent 1998-03-03 00:00:00 Completed [facility] DTaP, Unspecified Formulation 1998-03-03 00:00:00 Completed [facility] Hep B, Adol or Pedi Dosage 1998-03-03 00:00:00 Completed [facility] Haemophilus influenzae type b vaccine, conjugate unspecified formulation 1998-03-03 00:00:00 Completed [facility] MMR 1998-03-03 00:00:00 Completed [facility] Poliovirus, Live, Oral, Trivalent 1998-03-03 00:00:00 Completed [facility] DTaP, Unspecified Formulation 1998-03-03 00:00:00 Completed [facility] Hep B, Adol or Pedi Dosage 1998-03-03 00:00:00 Completed [facility] Haemophilus influenzae type b vaccine, conjugate unspecified formulation 1998-03-03 00:00:00 Completed [facility] MMR 1998-03-03 00:00:00 Completed [facility] Poliovirus, Live, Oral, Trivalent 1998-03-03 00:00:00 Completed [facility] DTaP, Unspecified Formulation 1998-03-03 00:00:00 Completed [facility] Hep B, Adol or Pedi Dosage 1998-03-03 00:00:00 Completed [facility] Haemophilus influenzae type b vaccine, conjugate unspecified formulation 1998-03-03 00:00:00 Completed [facility] MMR 1998-03-03 00:00:00 Completed [facility] Poliovirus, Live, Oral, Trivalent 1998-03-03 00:00:00 Completed [facility] DTaP, Unspecified Formulation 1998-03-03 00:00:00 Completed [facility] Hep B, Adol or Pedi Dosage 1998-03-03 00:00:00 Completed [facility] Haemophilus influenzae type b vaccine, conjugate unspecified formulation 1998-03-03 00:00:00 Completed [facility] MMR 1998-03-03 00:00:00 Completed [facility] Poliovirus, Live, Oral, Trivalent 1998-03-03 00:00:00 Completed [facility] DTaP, Unspecified Formulation 1998-03-03 00:00:00 Completed [facility] Hep B, Adol or Pedi Dosage 1998-03-03 00:00:00 Completed [facility] Haemophilus influenzae type b vaccine, conjugate unspecified formulation 1998-03-03 00:00:00 Completed [facility] MMR 1998-03-03 00:00:00 Completed [facility] Poliovirus, Live, Oral, Trivalent 1998-03-03 00:00:00 Completed [facility] DTaP, Unspecified Formulation 1998-03-03 00:00:00 Completed [facility] Hep B, Adol or Pedi Dosage 1998-03-03 00:00:00 Completed [facility] Haemophilus influenzae type b vaccine, conjugate unspecified formulation 1998-03-03 00:00:00 Completed [facility] MMR 1998-03-03 00:00:00 Completed [facility] Poliovirus, Live, Oral, Trivalent 1998-03-03 00:00:00 Completed [facility] DTaP, Unspecified Formulation 1998-03-03 00:00:00 Completed [facility] Hep B, Adol or Pedi Dosage 1998-03-03 00:00:00 Completed [facility] Haemophilus influenzae type b vaccine, conjugate unspecified formulation 1998-03-03 00:00:00 Completed [facility] MMR 1998-03-03 00:00:00 Completed [facility] Poliovirus, Live, Oral, Trivalent 1998-03-03 00:00:00 Completed [facility] DTaP, Unspecified Formulation 1998-03-03 00:00:00 Completed [facility] Hep B, Adol or Pedi Dosage 1998-03-03 00:00:00 Completed [facility] Haemophilus influenzae type b vaccine, conjugate unspecified formulation 1998-03-03 00:00:00 Completed [facility] MMR 1998-03-03 00:00:00 Completed [facility] Poliovirus, Live, Oral, Trivalent 1998-03-03 00:00:00 Completed [facility] DTaP, Unspecified Formulation 1998-03-03 00:00:00 Completed [facility] Hep B, Adol or Pedi Dosage 1998-03-03 00:00:00 Completed [facility] Haemophilus influenzae type b vaccine, conjugate unspecified formulation 1998-03-03 00:00:00 Completed [facility] MMR 1998-03-03 00:00:00 Completed [facility] Poliovirus, Live, Oral, Trivalent 1998-03-03 00:00:00 Completed [facility] DTaP, Unspecified Formulation 1998-03-03 00:00:00 Completed [facility] Hep B, Adol or Pedi Dosage 1998-03-03 00:00:00 Completed [facility] Haemophilus influenzae type b vaccine, conjugate unspecified formulation 1998-03-03 00:00:00 Completed [facility] MMR 1998-03-03 00:00:00 Completed [facility] Poliovirus, Live, Oral, Trivalent 1998-03-03 00:00:00 Completed [facility] DTaP, Unspecified Formulation 1998-03-03 00:00:00 Completed [facility] Hep B, Adol or Pedi Dosage 1998-03-03 00:00:00 Completed [facility] Haemophilus influenzae type b vaccine, conjugate unspecified formulation 1998-03-03 00:00:00 Completed [facility] MMR 1998-03-03 00:00:00 Completed [facility] Poliovirus, Live, Oral, Trivalent 1998-03-03 00:00:00 Completed [facility] DTaP, Unspecified Formulation 1998-03-03 00:00:00 Completed [facility] Hep B, Adol or Pedi Dosage 1998-03-03 00:00:00 Completed [facility] Haemophilus influenzae type b vaccine, conjugate unspecified formulation 1998-03-03 00:00:00 Completed [facility] MMR 1998-03-03 00:00:00 Completed [facility] Poliovirus, Live, Oral, Trivalent 1998-03-03 00:00:00 Completed [facility] DTaP, Unspecified Formulation 1998-03-03 00:00:00 Completed [facility] Hep B, Adol or Pedi Dosage 1998-03-03 00:00:00 Completed [facility] [facility] Haemophilus influenzae type b vaccine, conjugate unspecified formulation 1998-03-03 00:00:00 Completed [facility] MMR 1998-03-03 00:00:00 Completed [facility] Poliovirus, Live, Oral, Trivalent 1998-03-03 00:00:00 Completed [facility] DTaP, Unspecified Formulation 1998-03-03 00:00:00 Completed [facility] Hep B, Adol or Pedi Dosage 1998-03-03 00:00:00 Completed [facility] Haemophilus influenzae type b vaccine, conjugate unspecified formulation 1998-03-03 00:00:00 Completed [facility] MMR 1998-03-03 00:00:00 Completed [facility] Poliovirus, Live, Oral, Trivalent 1998-03-03 00:00:00 Completed [facility] DTaP, Unspecified Formulation 1998-03-03 00:00:00 Completed [facility] Hep B, Adol or Pedi Dosage 1998-03-03 00:00:00 Completed [facility] Haemophilus influenzae type b vaccine, conjugate unspecified formulation 1998-03-03 00:00:00 Completed [facility] MMR 1998-03-03 00:00:00 Completed [facility] Poliovirus, Live, Oral, Trivalent 1998-03-03 00:00:00 Completed [facility] DTaP, Unspecified Formulation 1998-03-03 00:00:00 Completed [facility] Hep B, Adol or Pedi Dosage 1998-03-03 00:00:00 Completed [facility] Haemophilus influenzae type b vaccine, conjugate unspecified formulation 1998-03-03 00:00:00 Completed [facility] MMR 1998-03-03 00:00:00 Completed [facility] Poliovirus, Live, Oral, Trivalent 1998-03-03 00:00:00 Completed [facility] DTaP, Unspecified Formulation 1998-03-03 00:00:00 Completed [facility] Hep B, Adol or Pedi Dosage 1998-03-03 00:00:00 Completed [facility] Haemophilus influenzae type b vaccine, conjugate unspecified formulation 1998-03-03 00:00:00 Completed [facility] MMR 1998-03-03 00:00:00 Completed [facility] Poliovirus, Live, Oral, Trivalent 1998-03-03 00:00:00 Completed [facility] DTaP, Unspecified Formulation 1998-03-03 00:00:00 Completed [facility] Hep B, Adol or Pedi Dosage 1998-03-03 00:00:00 Completed [facility] Haemophilus influenzae type b vaccine, conjugate unspecified formulation 1998-03-03 00:00:00 Completed [facility] MMR 1998-03-03 00:00:00 Completed [facility] Poliovirus, Live, Oral, Trivalent 1998-03-03 00:00:00 Completed [facility] DTaP, Unspecified Formulation 1998-03-03 00:00:00 Completed [facility] Hep B, Adol or Pedi Dosage 1998-03-03 00:00:00 Completed [facility] Haemophilus influenzae type b vaccine, conjugate unspecified formulation 1998-01-25 00:00:00 Completed [facility] MMR 1998-01-25 00:00:00 Completed [facility] Poliovirus, Live, Oral, Trivalent 1998-01-25 00:00:00 Completed [facility] DTaP, Unspecified Formulation 1998-01-25 00:00:00 Completed [facility] Hep B, Adol or Pedi Dosage 1998-01-25 00:00:00 Completed [facility] Haemophilus influenzae type b vaccine, conjugate unspecified formulation 1998-01-25 00:00:00 Completed [facility] MMR 1998-01-25 00:00:00 Completed [facility] Poliovirus, Live, Oral, Trivalent 1998-01-25 00:00:00 Completed [facility] DTaP, Unspecified Formulation 1998-01-25 00:00:00 Completed [facility] Hep B, Adol or Pedi Dosage 1998-01-25 00:00:00 Completed [facility] Haemophilus influenzae type b vaccine, conjugate unspecified formulation 1998-01-25 00:00:00 Completed [facility] MMR 1998-01-25 00:00:00 Completed [facility] Poliovirus, Live, Oral, Trivalent 1998-01-25 00:00:00 Completed [facility] DTaP, Unspecified Formulation 1998-01-25 00:00:00 Completed [facility] Hep B, Adol or Pedi Dosage 1998-01-25 00:00:00 Completed [facility] Haemophilus influenzae type b vaccine, conjugate unspecified formulation 1998-01-25 00:00:00 Completed [facility] MMR 1998-01-25 00:00:00 Completed [facility] Poliovirus, Live, Oral, Trivalent 1998-01-25 00:00:00 Completed [facility] DTaP, Unspecified Formulation 1998-01-25 00:00:00 Completed [facility] Hep B, Adol or Pedi Dosage 1998-01-25 00:00:00 Completed [facility] Haemophilus influenzae type b vaccine, conjugate unspecified formulation 1998-01-25 00:00:00 Completed [facility] MMR 1998-01-25 00:00:00 Completed [facility] Poliovirus, Live, Oral, Trivalent 1998-01-25 00:00:00 Completed [facility] DTaP, Unspecified Formulation 1998-01-25 00:00:00 Completed [facility] Hep B, Adol or Pedi Dosage 1998-01-25 00:00:00 Completed [facility] Haemophilus influenzae type b vaccine, conjugate unspecified formulation 1998-01-25 00:00:00 Completed [facility] MMR 1998-01-25 00:00:00 Completed [facility] Poliovirus, Live, Oral, Trivalent 1998-01-25 00:00:00 Completed [facility] DTaP, Unspecified Formulation 1998-01-25 00:00:00 Completed [facility] Hep B, Adol or Pedi Dosage 1998-01-25 00:00:00 Completed [facility] Haemophilus influenzae type b vaccine, conjugate unspecified formulation 1998-01-25 00:00:00 Completed [facility] MMR 1998-01-25 00:00:00 Completed [facility] Poliovirus, Live, Oral, Trivalent 1998-01-25 00:00:00 Completed [facility] DTaP, Unspecified Formulation 1998-01-25 00:00:00 Completed [facility] Hep B, Adol or Pedi Dosage 1998-01-25 00:00:00 Completed [facility] Haemophilus influenzae type b vaccine, conjugate unspecified formulation 1998-01-25 00:00:00 Completed [facility] MMR 1998-01-25 00:00:00 Completed [facility] Poliovirus, Live, Oral, Trivalent 1998-01-25 00:00:00 Completed [facility] DTaP, Unspecified Formulation 1998-01-25 00:00:00 Completed [facility] Hep B, Adol or Pedi Dosage 1998-01-25 00:00:00 Completed [facility] Haemophilus influenzae type b vaccine, conjugate unspecified formulation 1998-01-25 00:00:00 Completed [facility] MMR 1998-01-25 00:00:00 Completed [facility] Poliovirus, Live, Oral, Trivalent 1998-01-25 00:00:00 Completed [facility] DTaP, Unspecified Formulation 1998-01-25 00:00:00 Completed [facility] Hep B, Adol or Pedi Dosage 1998-01-25 00:00:00 Completed [facility] Haemophilus influenzae type b vaccine, conjugate unspecified formulation 1998-01-25 00:00:00 Completed [facility] MMR 1998-01-25 00:00:00 Completed [facility] Poliovirus, Live, Oral, Trivalent 1998-01-25 00:00:00 Completed [facility] DTaP, Unspecified Formulation 1998-01-25 00:00:00 Completed [facility] Hep B, Adol or Pedi Dosage 1998-01-25 00:00:00 Completed [facility] Haemophilus influenzae type b vaccine, conjugate unspecified formulation 1998-01-25 00:00:00 Completed [facility] MMR 1998-01-25 00:00:00 Completed [facility] Poliovirus, Live, Oral, Trivalent 1998-01-25 00:00:00 Completed [facility] DTaP, Unspecified Formulation 1998-01-25 00:00:00 Completed [facility] Hep B, Adol or Pedi Dosage 1998-01-25 00:00:00 Completed [facility] Haemophilus influenzae type b vaccine, conjugate unspecified formulation 1998-01-25 00:00:00 Completed [facility] MMR 1998-01-25 00:00:00 Completed [facility] Poliovirus, Live, Oral, Trivalent 1998-01-25 00:00:00 Completed [facility] DTaP, Unspecified Formulation 1998-01-25 00:00:00 Completed [facility] Hep B, Adol or Pedi Dosage 1998-01-25 00:00:00 Completed [facility] Haemophilus influenzae type b vaccine, conjugate unspecified formulation 1998-01-25 00:00:00 Completed [facility] MMR 1998-01-25 00:00:00 Completed [facility] Poliovirus, Live, Oral, Trivalent 1998-01-25 00:00:00 Completed [facility] DTaP, Unspecified Formulation 1998-01-25 00:00:00 Completed [facility] Hep B, Adol or Pedi Dosage 1998-01-25 00:00:00 Completed [facility] Haemophilus influenzae type b vaccine, conjugate unspecified formulation 1998-01-25 00:00:00 Completed [facility] MMR 1998-01-25 00:00:00 Completed [facility] Poliovirus, Live, Oral, Trivalent 1998-01-25 00:00:00 Completed [facility] DTaP, Unspecified Formulation 1998-01-25 00:00:00 Completed [facility] Hep B, Adol or Pedi Dosage 1998-01-25 00:00:00 Completed [facility] Haemophilus influenzae type b vaccine, conjugate unspecified formulation 1998-01-25 00:00:00 Completed [facility] MMR 1998-01-25 00:00:00 Completed [facility] Poliovirus, Live, Oral, Trivalent 1998-01-25 00:00:00 Completed [facility] DTaP, Unspecified Formulation 1998-01-25 00:00:00 Completed [facility] Hep B, Adol or Pedi Dosage 1998-01-25 00:00:00 Completed [facility] Haemophilus influenzae type b vaccine, conjugate unspecified formulation 1998-01-25 00:00:00 Completed [facility] MMR 1998-01-25 00:00:00 Completed [facility] Poliovirus, Live, Oral, Trivalent 1998-01-25 00:00:00 Completed [facility] DTaP, Unspecified Formulation 1998-01-25 00:00:00 Completed [facility] Hep B, Adol or Pedi Dosage 1998-01-25 00:00:00 Completed [facility] Haemophilus influenzae type b vaccine, conjugate unspecified formulation 1998-01-25 00:00:00 Completed [facility] MMR 1998-01-25 00:00:00 Completed [facility] Poliovirus, Live, Oral, Trivalent 1998-01-25 00:00:00 Completed [facility] DTaP, Unspecified Formulation 1998-01-25 00:00:00 Completed [facility] Hep B, Adol or Pedi Dosage 1998-01-25 00:00:00 Completed [facility] Haemophilus influenzae type b vaccine, conjugate unspecified formulation 1998-01-25 00:00:00 Completed [facility] MMR 1998-01-25 00:00:00 Completed [facility] Poliovirus, Live, Oral, Trivalent 1998-01-25 00:00:00 Completed [facility] DTaP, Unspecified Formulation 1998-01-25 00:00:00 Completed [facility] Hep B, Adol or Pedi Dosage 1998-01-25 00:00:00 Completed [facility] Haemophilus influenzae type b vaccine, conjugate unspecified formulation 1998-01-25 00:00:00 Completed [facility] MMR 1998-01-25 00:00:00 Completed [facility] Poliovirus, Live, Oral, Trivalent 1998-01-25 00:00:00 Completed [facility] DTaP, Unspecified Formulation 1998-01-25 00:00:00 Completed [facility] Hep B, Adol or Pedi Dosage 1998-01-25 00:00:00 Completed [facility] Haemophilus influenzae type b vaccine, conjugate unspecified formulation 1998-01-25 00:00:00 Completed [facility] MMR 1998-01-25 00:00:00 Completed [facility] Poliovirus, Live, Oral, Trivalent 1998-01-25 00:00:00 Completed [facility] DTaP, Unspecified Formulation 1998-01-25 00:00:00 Completed [facility] Hep B, Adol or Pedi Dosage 1998-01-25 00:00:00 Completed [facility] Haemophilus influenzae type b vaccine, conjugate unspecified formulation 1998-01-25 00:00:00 Completed [facility] MMR 1998-01-25 00:00:00 Completed [facility] Poliovirus, Live, Oral, Trivalent 1998-01-25 00:00:00 Completed [facility] DTaP, Unspecified Formulation 1998-01-25 00:00:00 Completed [facility] Hep B, Adol or Pedi Dosage 1998-01-25 00:00:00 Completed [facility] Haemophilus influenzae type b vaccine, conjugate unspecified formulation 1998-01-25 00:00:00 Completed [facility] MMR 1998-01-25 00:00:00 Completed [facility] Poliovirus, Live, Oral, Trivalent 1998-01-25 00:00:00 Completed [facility] DTaP, Unspecified Formulation 1998-01-25 00:00:00 Completed [facility] Hep B, Adol or Pedi Dosage 1998-01-25 00:00:00 Completed [facility] Haemophilus influenzae type b vaccine, conjugate unspecified formulation 1998-01-25 00:00:00 Completed [facility] MMR 1998-01-25 00:00:00 Completed [facility] Poliovirus, Live, Oral, Trivalent 1998-01-25 00:00:00 Completed [facility] DTaP, Unspecified Formulation 1998-01-25 00:00:00 Completed [facility] Hep B, Adol or Pedi Dosage 1998-01-25 00:00:00 Completed [facility] Haemophilus influenzae type b vaccine, conjugate unspecified formulation 1998-01-25 00:00:00 Completed [facility] MMR 1998-01-25 00:00:00 Completed [facility] Poliovirus, Live, Oral, Trivalent 1998-01-25 00:00:00 Completed [facility] DTaP, Unspecified Formulation 1998-01-25 00:00:00 Completed [facility] Hep B, Adol or Pedi Dosage 1998-01-25 00:00:00 Completed [facility] Haemophilus influenzae type b vaccine, conjugate unspecified formulation 1998-01-25 00:00:00 Completed [facility] MMR 1998-01-25 00:00:00 Completed [facility] Poliovirus, Live, Oral, Trivalent 1998-01-25 00:00:00 Completed [facility] DTaP, Unspecified Formulation 1998-01-25 00:00:00 Completed [facility] Hep B, Adol or Pedi Dosage 1998-01-25 00:00:00 Completed [facility] Haemophilus influenzae type b vaccine, conjugate unspecified formulation 1998-01-25 00:00:00 Completed [facility] MMR 1998-01-25 00:00:00 Completed [facility] Poliovirus, Live, Oral, Trivalent 1998-01-25 00:00:00 Completed [facility] DTaP, Unspecified Formulation 1998-01-25 00:00:00 Completed [facility] Hep B, Adol or Pedi Dosage 1998-01-25 00:00:00 Completed [facility] Haemophilus influenzae type b vaccine, conjugate unspecified formulation 1998-01-25 00:00:00 Completed [facility] MMR 1998-01-25 00:00:00 Completed [facility] Poliovirus, Live, Oral, Trivalent 1998-01-25 00:00:00 Completed [facility] DTaP, Unspecified Formulation 1998-01-25 00:00:00 Completed [facility] Hep B, Adol or Pedi Dosage 1998-01-25 00:00:00 Completed [facility] Haemophilus influenzae type b vaccine, conjugate unspecified formulation 1998-01-25 00:00:00 Completed [facility] MMR 1998-01-25 00:00:00 Completed [facility] Poliovirus, Live, Oral, Trivalent 1998-01-25 00:00:00 Completed [facility] DTaP, Unspecified Formulation 1998-01-25 00:00:00 Completed [facility] Hep B, Adol or Pedi Dosage 1998-01-25 00:00:00 Completed [facility] MMR 1996-01-27 00:00:00 Completed [facility] MMR 1996-01-27 00:00:00 Completed [facility] MMR 1996-01-27 00:00:00 Completed [facility] MMR 1996-01-27 00:00:00 Completed [facility] MMR 1996-01-27 00:00:00 Completed [facility] MMR 1996-01-27 00:00:00 Completed [facility] MMR 1996-01-27 00:00:00 Completed [facility] MMR 1996-01-27 00:00:00 Completed [facility] MMR 1996-01-27 00:00:00 Completed [facility] MMR 1996-01-27 00:00:00 Completed [facility] MMR 1996-01-27 00:00:00 Completed [facility] MMR 1996-01-27 00:00:00 Completed [facility] MMR 1996-01-27 00:00:00 Completed [facility] MMR 1996-01-27 00:00:00 Completed [facility] MMR 1996-01-27 00:00:00 Completed [facility] MMR 1996-01-27 00:00:00 Completed [facility] MMR 1996-01-27 00:00:00 Completed [facility] MMR 1996-01-27 00:00:00 Completed [facility] MMR 1996-01-27 00:00:00 Completed [facility] MMR 1996-01-27 00:00:00 Completed [facility] MMR 1996-01-27 00:00:00 Completed [facility] MMR 1996-01-27 00:00:00 Completed [facility] MMR 1996-01-27 00:00:00 Completed [facility] MMR 1996-01-27 00:00:00 Completed [facility] MMR 1996-01-27 00:00:00 Completed [facility] MMR 1996-01-27 00:00:00 Completed [facility] MMR 1996-01-27 00:00:00 Completed [facility] MMR 1996-01-27 00:00:00 Completed [facility] MMR 1995-11-13 00:00:00 Completed [facility] DPT/HIB 1995-11-13 00:00:00 Completed [facility] MMR 1995-11-13 00:00:00 Completed [facility] DPT/HIB 1995-11-13 00:00:00 Completed [facility] MMR 1995-11-13 00:00:00 Completed [facility] DPT/HIB 1995-11-13 00:00:00 Completed [facility] MMR 1995-11-13 00:00:00 Completed [facility] DPT/HIB 1995-11-13 00:00:00 Completed [facility] MMR 1995-11-13 00:00:00 Completed [facility] DPT/HIB 1995-11-13 00:00:00 Completed [facility] MMR 1995-11-13 00:00:00 Completed [facility] DPT/HIB 1995-11-13 00:00:00 Completed [facility] MMR 1995-11-13 00:00:00 Completed [facility] DPT/HIB 1995-11-13 00:00:00 Completed [facility] MMR 1995-11-13 00:00:00 Completed [facility] DPT/HIB 1995-11-13 00:00:00 Completed [facility] MMR 1995-11-13 00:00:00 Completed [facility] DPT/HIB 1995-11-13 00:00:00 Completed [facility] MMR 1995-11-13 00:00:00 Completed [facility] DPT/HIB 1995-11-13 00:00:00 Completed [facility] MMR 1995-11-13 00:00:00 Completed [facility] DPT/HIB 1995-11-13 00:00:00 Completed [facility] MMR 1995-11-13 00:00:00 Completed [facility] DPT/HIB 1995-11-13 00:00:00 Completed [facility] MMR 1995-11-13 00:00:00 Completed [facility] DPT/HIB 1995-11-13 00:00:00 Completed [facility] MMR 1995-11-13 00:00:00 Completed [facility] DPT/HIB 1995-11-13 00:00:00 Completed [facility] MMR 1995-11-13 00:00:00 Completed [facility] DPT/HIB 1995-11-13 00:00:00 Completed [facility] MMR 1995-11-13 00:00:00 Completed [facility] DPT/HIB 1995-11-13 00:00:00 Completed [facility] MMR 1995-11-13 00:00:00 Completed [facility] DPT/HIB 1995-11-13 00:00:00 Completed [facility] MMR 1995-11-13 00:00:00 Completed [facility] DPT/HIB 1995-11-13 00:00:00 Completed [facility] MMR 1995-11-13 00:00:00 Completed [facility] DPT/HIB 1995-11-13 00:00:00 Completed [facility] MMR 1995-11-13 00:00:00 Completed [facility] DPT/HIB 1995-11-13 00:00:00 Completed [facility] MMR 1995-11-13 00:00:00 Completed [facility] DPT/HIB 1995-11-13 00:00:00 Completed [facility] MMR 1995-11-13 00:00:00 Completed [facility] DPT/HIB 1995-11-13 00:00:00 Completed [facility] MMR 1995-11-13 00:00:00 Completed [facility] DPT/HIB 1995-11-13 00:00:00 Completed [facility] MMR 1995-11-13 00:00:00 Completed [facility] DPT/HIB 1995-11-13 00:00:00 Completed [facility] MMR 1995-11-13 00:00:00 Completed [facility] DPT/HIB 1995-11-13 00:00:00 Completed [facility] MMR 1995-11-13 00:00:00 Completed [facility] DPT/HIB 1995-11-13 00:00:00 Completed [facility] MMR 1995-11-13 00:00:00 Completed [facility] DPT/HIB 1995-11-13 00:00:00 Completed [facility] MMR 1995-11-13 00:00:00 Completed [facility] DPT/HIB 1995-11-13 00:00:00 Completed [facility] DTaP, Unspecified Formulation Unknown Completed [facility] DTaP, Unspecified Formulation Unknown Completed [facility] DTaP, Unspecified Formulation Unknown Completed [facility] DTaP, Unspecified Formulation Unknown Completed [facility] DPT/HIB Unknown Completed [facility] Hepatitis A Adult Unknown Completed [facility] HEPATITIS A Unknown Completed [facility] Hep B, Adol or Pedi Dosage Unknown Completed [facility] Hep B, Adol or Pedi Dosage Unknown Completed [facility] Hep B, Adol or Pedi Dosage Unknown Completed [facility] Haemophilus influenzae type b vaccine, conjugate unspecified formulation Unknown Completed [facility] Haemophilus influenzae type b vaccine, conjugate unspecified formulation Unknown Completed [facility] Meningococcal Polysaccharide (groups A, C, Y and W-135) conjugate vaccine (MCV4P) Unknown Completed [facility] MMR Unknown Completed [facility] MMR Unknown Completed [facility] MMR Unknown Completed [facility] MMR Unknown Completed [facility] Poliovirus, Live, Oral, Trivalent Unknown Completed [facility] Poliovirus, Live, Oral, Trivalent Unknown Completed [facility] Poliovirus, Live, Oral, Trivalent Unknown Completed [facility] TDAP Unknown Completed [facility] Varicella (varivax)(chicken pox) Unknown Completed [facility] DTaP, Unspecified Formulation Unknown Completed [facility] DTaP, Unspecified Formulation Unknown Completed [facility] DTaP, Unspecified Formulation Unknown Completed [facility] DTaP, Unspecified Formulation Unknown Completed [facility] DPT/HIB Unknown Completed [facility] Hepatitis A Adult Unknown Completed [facility] HEPATITIS A Unknown Completed [facility] Hep B, Adol or Pedi Dosage Unknown Completed [facility] Hep B, Adol or Pedi Dosage Unknown Completed [facility] Hep B, Adol or Pedi Dosage Unknown Completed [facility] Haemophilus influenzae type b vaccine, conjugate unspecified formulation Unknown Completed [facility] Haemophilus influenzae type b vaccine, conjugate unspecified formulation Unknown Completed [facility] Meningococcal Polysaccharide (groups A, C, Y and W-135) conjugate vaccine (MCV4P) Unknown Completed [facility] MMR Unknown Completed [facility] MMR Unknown Completed [facility] MMR Unknown Completed [facility] MMR Unknown Completed [facility] Poliovirus, Live, Oral, Trivalent Unknown Completed [facility] Poliovirus, Live, Oral, Trivalent Unknown Completed [facility] Poliovirus, Live, Oral, Trivalent Unknown Completed [facility] TDAP Unknown Completed [facility] Varicella (varivax)(chicken pox) Unknown Completed [facility] DTaP, Unspecified Formulation Unknown Completed [facility] DTaP, Unspecified Formulation Unknown Completed [facility] DTaP, Unspecified Formulation Unknown Completed [facility] DTaP, Unspecified Formulation Unknown Completed [facility] DPT/HIB Unknown Completed [facility] Hepatitis A Adult Unknown [facility] Completed [facility] Hep B, Adol or Pedi Dosage Unknown Completed [facility] Hep B, Adol or Pedi Dosage Unknown Completed [facility] Hep B, Adol or Pedi Dosage Unknown Completed [facility] Haemophilus influenzae type b vaccine, conjugate unspecified formulation Unknown Completed [facility] Haemophilus influenzae type b vaccine, conjugate unspecified formulation Unknown Completed [facility] Meningococcal Polysaccharide (groups A, C, Y and W-135) conjugate vaccine (MCV4P) Unknown Completed [facility] MMR Unknown Completed [facility] MMR Unknown Completed [facility] MMR Unknown Completed [facility] MMR Unknown Completed [facility] Poliovirus, Live, Oral, Trivalent Unknown Completed [facility] Poliovirus, Live, Oral, Trivalent Unknown Completed [facility] Poliovirus, Live, Oral, Trivalent Unknown Completed [facility] TDAP Unknown Completed [facility] Varicella (varivax)(chicken pox) Unknown Completed [facility] DTaP, Unspecified Formulation Unknown Completed [facility] DTaP, Unspecified Formulation Unknown Completed [facility] DTaP, Unspecified Formulation Unknown Completed [facility] DTaP, Unspecified Formulation Unknown Completed [facility] DPT/HIB Unknown Completed [facility] Hepatitis A Adult [facility] Hep B, Adol or Pedi Dosage Unknown Completed [facility] Hep B, Adol or Pedi Dosage Unknown Completed [facility] Hep B, Adol or Pedi Dosage Unknown Completed [facility] Haemophilus influenzae type b vaccine, conjugate unspecified formulation Unknown Completed [facility] Haemophilus influenzae type b vaccine, conjugate unspecified formulation Unknown Completed [facility] Meningococcal Polysaccharide (groups A, C, Y and W-135) conjugate vaccine (MCV4P) Unknown Completed [facility] MMR Unknown Completed [facility] MMR Unknown Completed [facility] MMR Unknown Completed [facility] MMR Unknown Completed [facility] Poliovirus, Live, Oral, Trivalent Unknown Completed [facility] Poliovirus, Live, Oral, Trivalent Unknown Completed [facility] Poliovirus, Live, Oral, Trivalent Unknown Completed [facility] TDAP Unknown Completed [facility] Varicella (varivax)(chicken pox) Unknown Completed [facility] DTaP, Unspecified Formulation Unknown Completed [facility] DTaP, Unspecified Formulation Unknown Completed [facility] DTaP, Unspecified Formulation Unknown Completed [facility] DTaP, Unspecified Formulation Unknown Completed [facility] DPT/HIB Unknown Completed [facility] Hepatitis A Adult Unknown [facility] Com[facility] Hep B, Adol or Pedi Dosage Unknown Completed [facility] Hep B, Adol or Pedi Dosage Unknown Completed [facility] Hep B, Adol or Pedi Dosage Unknown Completed [facility] Haemophilus influenzae type b vaccine, conjugate unspecified formulation Unknown Completed [facility] Haemophilus influenzae type b vaccine, conjugate unspecified formulation Unknown Completed [facility] Meningococcal Polysaccharide (groups A, C, Y and W-135) conjugate vaccine (MCV4P) Unknown Completed [facility] MMR Unknown Completed [facility] MMR Unknown Completed [facility] MMR Unknown Completed [facility] MMR Unknown Completed [facility] Poliovirus, Live, Oral, Trivalent Unknown Completed [facility] Poliovirus, Live, Oral, Trivalent Unknown Completed [facility] Poliovirus, Live, Oral, Trivalent Unknown Completed [facility] TDAP Unknown Completed [facility] Varicella (varivax)(chicken pox) Unknown Completed [facility] DTaP, Unspecified Formulation Unknown Completed [facility] DTaP, Unspecified Formulation Unknown Completed [facility] DTaP, Unspecified Formulation Unknown Completed [facility] DTaP, Unspecified Formulation Unknown Completed [facility] DPT/HIB Unknown Completed [facility] Hepatitis A Adult Unknown [facility] Hep B, Adol or Pedi Dosage Unknown Completed [facility] Hep B, Adol or Pedi Dosage Unknown Completed [facility] Hep B, Adol or Pedi Dosage Unknown Completed [facility] Haemophilus influenzae type b vaccine, conjugate unspecified formulation Unknown Completed [facility] Haemophilus influenzae type b vaccine, conjugate unspecified formulation Unknown Completed [facility] Meningococcal Polysaccharide (groups A, C, Y and W-135) conjugate vaccine (MCV4P) Unknown Completed [facility] MMR Unknown Completed [facility] MMR Unknown Completed [facility] MMR Unknown Completed [facility] MMR Unknown Completed [facility] Poliovirus, Live, Oral, Trivalent Unknown Completed [facility] Poliovirus, Live, Oral, Trivalent Unknown Completed [facility] Poliovirus, Live, Oral, Trivalent Unknown Completed [facility] TDAP Unknown Completed [facility] Varicella (varivax)(chicken pox) Unknown Completed [facility] DTaP, Unspecified Formulation Unknown Completed [facility] DTaP, Unspecified Formulation Unknown Completed [facility] DTaP, Unspecified Formulation Unknown Completed [facility] DTaP, Unspecified Formulation Unknown Completed [facility] DPT/HIB Unknown Completed [facility] Hepatitis A Adult Unknown Completed [facility] HEPATITIS A Unknown Completed [facility] Hep B, Adol or Pedi Dosage Unknown Completed [facility] Hep B, Adol or Pedi Dosage Unknown Completed [facility] Hep B, Adol or Pedi Dosage Unknown Completed [facility] Haemophilus influenzae type b vaccine, conjugate unspecified formulation Unknown Completed [facility] Haemophilus influenzae type b vaccine, conjugate unspecified formulation Unknown Completed [facility] Meningococcal Polysaccharide (groups A, C, Y and W-135) conjugate vaccine (MCV4P) Unknown Completed [facility] MMR Unknown Completed [facility] MMR Unknown Completed [facility] MMR Unknown Completed [facility] MMR Unknown Completed [facility] Poliovirus, Live, Oral, Trivalent Unknown Completed [facility] Poliovirus, Live, Oral, Trivalent Unknown Completed [facility] Poliovirus, Live, Oral, Trivalent Unknown Completed [facility] TDAP Unknown Completed [facility] Varicella (varivax)(chicken pox) Unknown Completed [facility] DTaP, Unspecified Formulation Unknown Completed [facility] DTaP, Unspecified Formulation Unknown Completed [facility] DTaP, Unspecified Formulation Unknown Completed [facility] DTaP, Unspecified Formulation Unknown Completed [facility] DPT/HIB Unknown Completed [facility] Hepatitis A Adult Unknown [facility] Com[facility] Hep B, Adol or Pedi Dosage Unknown Completed [facility] Hep B, Adol or Pedi Dosage Unknown Completed [facility] Hep B, Adol or Pedi Dosage Unknown Completed [facility] Haemophilus influenzae type b vaccine, conjugate unspecified formulation Unknown Completed [facility] Haemophilus influenzae type b vaccine, conjugate unspecified formulation Unknown Completed [facility] Meningococcal Polysaccharide (groups A, C, Y and W-135) conjugate vaccine (MCV4P) Unknown Completed [facility] MMR Unknown Completed [facility] MMR Unknown Completed [facility] MMR Unknown Completed [facility] MMR Unknown Completed [facility] Poliovirus, Live, Oral, Trivalent Unknown Completed [facility] Poliovirus, Live, Oral, Trivalent Unknown Completed [facility] Poliovirus, Live, Oral, Trivalent Unknown Completed [facility] TDAP Unknown Completed [facility] Varicella (varivax)(chicken pox) Unknown Completed [facility] DTaP, Unspecified Formulation Unknown Completed [facility] DTaP, Unspecified Formulation Unknown Completed [facility] DTaP, Unspecified Formulation Unknown Completed [facility] DTaP, Unspecified Formulation Unknown Completed [facility] DPT/HIB Unknown Completed [facility] Hepatitis A Adult Unknown [facility] Completed [facility] Hep B, Adol or Pedi Dosage Unknown Completed [facility] Hep B, Adol or Pedi Dosage Unknown Completed [facility] Hep B, Adol or Pedi Dosage Unknown Completed [facility] Haemophilus influenzae type b vaccine, conjugate unspecified formulation Unknown Completed [facility] Haemophilus influenzae type b vaccine, conjugate unspecified formulation Unknown Completed [facility] Meningococcal Polysaccharide (groups A, C, Y and W-135) conjugate vaccine (MCV4P) Unknown Completed [facility] MMR Unknown Completed [facility] MMR Unknown Completed [facility] MMR Unknown Completed [facility] MMR Unknown Completed [facility] Poliovirus, Live, Oral, Trivalent Unknown Completed [facility] Poliovirus, Live, Oral, Trivalent Unknown Completed [facility] Poliovirus, Live, Oral, Trivalent Unknown Completed [facility] TDAP Unknown Completed [facility] Varicella (varivax)(chicken pox) Unknown Completed [facility] DTaP, Unspecified Formulation Unknown Completed [facility] DTaP, Unspecified Formulation Unknown Completed [facility] DTaP, Unspecified Formulation Unknown Completed [facility] DTaP, Unspecified Formulation Unknown Completed [facility] DPT/HIB Unknown Completed [facility] Hepatitis A Adult Unknown Completed [facility] HEPATITIS A Unknown Completed [facility] Hep B, Adol or Pedi Dosage Unknown Completed [facility] Hep B, Adol or Pedi Dosage Unknown Completed [facility] Hep B, Adol or Pedi Dosage Unknown Completed [facility] Haemophilus influenzae type b vaccine, conjugate unspecified formulation Unknown Completed [facility] Haemophilus influenzae type b vaccine, conjugate unspecified formulation Unknown Completed [facility] Meningococcal Polysaccharide (groups A, C, Y and W-135) conjugate vaccine (MCV4P) Unknown Completed [facility] MMR Unknown Completed [facility] MMR Unknown Completed [facility] MMR Unknown Completed [facility] MMR Unknown Completed [facility] Poliovirus, Live, Oral, Trivalent Unknown Completed [facility] Poliovirus, Live, Oral, Trivalent Unknown Completed [facility] Poliovirus, Live, Oral, Trivalent Unknown Completed [facility] TDAP Unknown Completed [facility] Varicella (varivax)(chicken pox) Unknown Completed [facility] DTaP, Unspecified Formulation Unknown Completed [facility] DTaP, Unspecified Formulation Unknown Completed [facility] DTaP, Unspecified Formulation Unknown Completed [facility] DTaP, Unspecified Formulation Unknown Completed [facility] DPT/HIB Unknown Completed [facility] Hepatitis A Adult Unknown Completed Un [facility] HEPATITIS A Unknown Completed [facility] Hep B, Adol or Pedi Dosage Unknown Completed [facility] Hep B, Adol or Pedi Dosage Unknown Completed [facility] Hep B, Adol or Pedi Dosage Unknown Completed [facility] Haemophilus influenzae type b vaccine, conjugate unspecified formulation Unknown Completed [facility] Haemophilus influenzae type b vaccine, conjugate unspecified formulation Unknown Completed [facility] Meningococcal Polysaccharide (groups A, C, Y and W-135) conjugate vaccine (MCV4P) Unknown Completed [facility] MMR Unknown Completed [facility] MMR Unknown Completed [facility] MMR Unknown Completed [facility] MMR Unknown Completed [facility] Poliovirus, Live, Oral, Trivalent Unknown Completed [facility] Poliovirus, Live, Oral, Trivalent Unknown Completed [facility] Poliovirus, Live, Oral, Trivalent Unknown Completed [facility] TDAP Unknown Completed [facility] Varicella (varivax)(chicken pox) Unknown Completed [facility] DTaP, Unspecified Formulation Unknown Completed [facility] DTaP, Unspecified Formulation Unknown Completed [facility] DTaP, Unspecified Formulation Unknown Completed [facility] DTaP, Unspecified Formulation Unknown Completed [facility] DPT/HIB Unknown Completed [facility] Hepatitis A Adult Unknown Completed [facility] HEPATITIS A Unknown Completed [facility] Hep B, Adol or Pedi Dosage Unknown Completed [facility] Hep B, Adol or Pedi Dosage Unknown Completed [facility] Hep B, Adol or Pedi Dosage Unknown Completed [facility] Haemophilus influenzae type b vaccine, conjugate unspecified formulation Unknown Completed [facility] Haemophilus influenzae type b vaccine, conjugate unspecified formulation Unknown Completed [facility] Meningococcal Polysaccharide (groups A, C, Y and W-135) conjugate vaccine (MCV4P) Unknown Completed [facility] MMR Unknown Completed [facility] MMR Unknown Completed [facility] MMR Unknown Completed [facility] MMR Unknown Completed [facility] Poliovirus, Live, Oral, Trivalent Unknown Completed [facility] Poliovirus, Live, Oral, Trivalent Unknown Completed [facility] Poliovirus, Live, Oral, Trivalent Unknown Completed [facility] TDAP Unknown Completed [facility] Varicella (varivax)(chicken pox) Unknown Completed [facility] DTaP, Unspecified Formulation Unknown Completed [facility] DTaP, Unspecified Formulation Unknown Completed [facility] DTaP, Unspecified Formulation Unknown Completed [facility] DTaP, Unspecified Formulation Unknown Completed [facility] DPT/HIB Unknown Completed [facility] Hepatitis A Adult [facility] Com[facility] Hep B, Adol or Pedi Dosage Unknown Completed [facility] Hep B, Adol or Pedi Dosage Unknown Completed [facility] Hep B, Adol or Pedi Dosage Unknown Completed [facility] Haemophilus influenzae type b vaccine, conjugate unspecified formulation Unknown Completed [facility] Haemophilus influenzae type b vaccine, conjugate unspecified formulation Unknown Completed [facility] Meningococcal Polysaccharide (groups A, C, Y and W-135) conjugate vaccine (MCV4P) Unknown Completed [facility] MMR Unknown Completed [facility] MMR Unknown Completed [facility] MMR Unknown Completed [facility] MMR Unknown Completed [facility] Poliovirus, Live, Oral, Trivalent Unknown Completed [facility] Poliovirus, Live, Oral, Trivalent Unknown Completed [facility] Poliovirus, Live, Oral, Trivalent Unknown Completed [facility] TDAP Unknown Completed [facility] Varicella (varivax)(chicken pox) Unknown Completed [facility] DTaP, Unspecified Formulation Unknown Completed [facility] DTaP, Unspecified Formulation Unknown Completed [facility] DTaP, Unspecified Formulation Unknown Completed [facility] DTaP, Unspecified Formulation Unknown Completed [facility] DPT/HIB Unknown Completed [facility] Hepatitis A Adult Unknown [facility] Completed [facility] Hep B, Adol or Pedi Dosage Unknown Completed [facility] Hep B, Adol or Pedi Dosage Unknown Completed [facility] Hep B, Adol or Pedi Dosage Unknown Completed [facility] Haemophilus influenzae type b vaccine, conjugate unspecified formulation Unknown Completed [facility] Haemophilus influenzae type b vaccine, conjugate unspecified formulation Unknown Completed [facility] Meningococcal Polysaccharide (groups A, C, Y and W-135) conjugate vaccine (MCV4P) Unknown Completed [facility] MMR Unknown Completed [facility] MMR Unknown Completed [facility] MMR Unknown Completed [facility] MMR Unknown Completed [facility] Poliovirus, Live, Oral, Trivalent Unknown Completed [facility] Poliovirus, Live, Oral, Trivalent Unknown Completed [facility] Poliovirus, Live, Oral, Trivalent Unknown Completed [facility] TDAP Unknown Completed [facility] Varicella (varivax)(chicken pox) Unknown Completed [facility] DTaP, Unspecified Formulation Unknown Completed [facility] DTaP, Unspecified Formulation Unknown Completed [facility] DTaP, Unspecified Formulation Unknown Completed [facility] DTaP, Unspecified Formulation Unknown Completed [facility] DPT/HIB Unknown Completed [facility] Hepatitis A Adult Unknown Completed [facility] HEPATITIS A Unknown Completed [facility] Hep B, Adol or Pedi Dosage Unknown Completed [facility] Hep B, Adol or Pedi Dosage Unknown Completed [facility] Hep B, Adol or Pedi Dosage Unknown Completed [facility] Haemophilus influenzae type b vaccine, conjugate unspecified formulation Unknown Completed [facility] Haemophilus influenzae type b vaccine, conjugate unspecified formulation Unknown Completed [facility] Meningococcal Polysaccharide (groups A, C, Y and W-135) conjugate vaccine (MCV4P) Unknown Completed [facility] MMR Unknown Completed [facility] MMR Unknown Completed [facility] MMR Unknown Completed [facility] MMR Unknown Completed [facility] Poliovirus, Live, Oral, Trivalent Unknown Completed [facility] Poliovirus, Live, Oral, Trivalent Unknown Completed [facility] Poliovirus, Live, Oral, Trivalent Unknown Completed [facility] TDAP Unknown Completed [facility] Varicella (varivax)(chicken pox) Unknown Completed [facility] DTaP, Unspecified Formulation Unknown Completed [facility] DTaP, Unspecified Formulation Unknown Completed [facility] DTaP, Unspecified Formulation Unknown Completed [facility] DTaP, Unspecified Formulation Unknown Completed [facility] DPT/HIB Unknown Completed [facility] Hepatitis A Adult Unknown Completed Un [facility] HEPATITIS A Unknown Completed [facility] Hep B, Adol or Pedi Dosage Unknown Completed [facility] Hep B, Adol or Pedi Dosage Unknown Completed [facility] Hep B, Adol or Pedi Dosage Unknown Completed [facility] Haemophilus influenzae type b vaccine, conjugate unspecified formulation Unknown Completed [facility] Haemophilus influenzae type b vaccine, conjugate unspecified formulation Unknown Completed [facility] Meningococcal Polysaccharide (groups A, C, Y and W-135) conjugate vaccine (MCV4P) Unknown Completed [facility] MMR Unknown Completed [facility] MMR Unknown Completed [facility] MMR Unknown Completed [facility] MMR Unknown Completed [facility] Poliovirus, Live, Oral, Trivalent Unknown Completed [facility] Poliovirus, Live, Oral, Trivalent Unknown Completed [facility] Poliovirus, Live, Oral, Trivalent Unknown Completed [facility] TDAP Unknown Completed [facility] Varicella (varivax)(chicken pox) Unknown Completed [facility] DTaP, Unspecified Formulation Unknown Completed [facility] DTaP, Unspecified Formulation Unknown Completed [facility] DTaP, Unspecified Formulation Unknown Completed [facility] DTaP, Unspecified Formulation Unknown Completed [facility] DPT/HIB Unknown Completed [facility] Hepatitis A Adult Unknown Completed Un [facility] HEPATITIS A Unknown Completed [facility] Hep B, Adol or Pedi Dosage Unknown Completed [facility] Hep B, Adol or Pedi Dosage Unknown Completed [facility] Hep B, Adol or Pedi Dosage Unknown Completed [facility] Haemophilus influenzae type b vaccine, conjugate unspecified formulation Unknown Completed [facility] Haemophilus influenzae type b vaccine, conjugate unspecified formulation Unknown Completed [facility] Meningococcal Polysaccharide (groups A, C, Y and W-135) conjugate vaccine (MCV4P) Unknown Completed [facility] MMR Unknown Completed [facility] MMR Unknown Completed [facility] MMR Unknown Completed [facility] MMR Unknown Completed [facility] Poliovirus, Live, Oral, Trivalent Unknown Completed [facility] Poliovirus, Live, Oral, Trivalent Unknown Completed [facility] Poliovirus, Live, Oral, Trivalent Unknown Completed [facility] TDAP Unknown Completed [facility] Varicella (varivax)(chicken pox) Unknown Completed [facility] DTaP, Unspecified Formulation Unknown Completed [facility] DTaP, Unspecified Formulation Unknown Completed [facility] DTaP, Unspecified Formulation Unknown Completed [facility] DTaP, Unspecified Formulation Unknown Completed [facility] DPT/HIB Unknown Completed [facility] Hepatitis A Adult Unknown Completed [facility] HEPATITIS A Unknown Completed [facility] Hep B, Adol or Pedi Dosage Unknown Completed [facility] Hep B, Adol or Pedi Dosage Unknown Completed [facility] Hep B, Adol or Pedi Dosage Unknown Completed [facility] Haemophilus influenzae type b vaccine, conjugate unspecified formulation Unknown Completed [facility] Haemophilus influenzae type b vaccine, conjugate unspecified formulation Unknown Completed [facility] Meningococcal Polysaccharide (groups A, C, Y and W-135) conjugate vaccine (MCV4P) Unknown Completed [facility] MMR Unknown Completed [facility] MMR Unknown Completed [facility] MMR Unknown Completed [facility] MMR Unknown Completed [facility] Poliovirus, Live, Oral, Trivalent Unknown Completed [facility] Poliovirus, Live, Oral, Trivalent Unknown Completed [facility] Poliovirus, Live, Oral, Trivalent Unknown Completed [facility] TDAP Unknown Completed [facility] Varicella (varivax)(chicken pox) Unknown Completed [facility] DTaP, Unspecified Formulation Unknown Completed [facility] DTaP, Unspecified Formulation Unknown Completed [facility] DTaP, Unspecified Formulation Unknown Completed [facility] DTaP, Unspecified Formulation Unknown Completed [facility] DPT/HIB Unknown Completed [facility] Hepatitis A Adult Unknown [facility] Completed [facility] Hep B, Adol or Pedi Dosage Unknown Completed [facility] Hep B, Adol or Pedi Dosage Unknown Completed [facility] Hep B, Adol or Pedi Dosage Unknown Completed [facility] Haemophilus influenzae type b vaccine, conjugate unspecified formulation Unknown Completed [facility] Haemophilus influenzae type b vaccine, conjugate unspecified formulation Unknown Completed [facility] Meningococcal Polysaccharide (groups A, C, Y and W-135) conjugate vaccine (MCV4P) Unknown Completed [facility] MMR Unknown Completed [facility] MMR Unknown Completed [facility] MMR Unknown Completed [facility] MMR Unknown Completed [facility] Poliovirus, Live, Oral, Trivalent Unknown Completed [facility] Poliovirus, Live, Oral, Trivalent Unknown Completed [facility] Poliovirus, Live, Oral, Trivalent Unknown Completed [facility] TDAP Unknown Completed [facility] Varicella (varivax)(chicken pox) Unknown Completed [facility] DTaP, Unspecified Formulation Unknown Completed [facility] DTaP, Unspecified Formulation Unknown Completed [facility] DTaP, Unspecified Formulation Unknown Completed [facility] DTaP, Unspecified Formulation Unknown Completed [facility] DPT/HIB Unknown Completed [facility] Hepatitis A Adult Unknown Completed [facility] HEPATITIS A Unknown Completed [facility] Hep B, Adol or Pedi Dosage Unknown Completed [facility] Hep B, Adol or Pedi Dosage Unknown Completed [facility] Hep B, Adol or Pedi Dosage Unknown Completed [facility] Haemophilus influenzae type b vaccine, conjugate unspecified formulation Unknown Completed [facility] Haemophilus influenzae type b vaccine, conjugate unspecified formulation Unknown Completed [facility] Meningococcal Polysaccharide (groups A, C, Y and W-135) conjugate vaccine (MCV4P) Unknown Completed [facility] MMR Unknown Completed [facility] MMR Unknown Completed [facility] MMR Unknown Completed [facility] MMR Unknown Completed [facility] Poliovirus, Live, Oral, Trivalent Unknown Completed [facility] Poliovirus, Live, Oral, Trivalent Unknown Completed [facility] Poliovirus, Live, Oral, Trivalent Unknown Completed [facility] TDAP Unknown Completed [facility] Varicella (varivax)(chicken pox) Unknown Completed [facility] DTaP, Unspecified Formulation Unknown Completed [facility] DTaP, Unspecified Formulation Unknown Completed [facility] DTaP, Unspecified Formulation Unknown Completed [facility] DTaP, Unspecified Formulation Unknown Completed [facility] DPT/HIB Unknown Completed [facility] Hepatitis A Adult Unknown [facility] Completed [facility] Hep B, Adol or Pedi Dosage Unknown Completed [facility] Hep B, Adol or Pedi Dosage Unknown Completed [facility] Hep B, Adol or Pedi Dosage Unknown Completed [facility] Haemophilus influenzae type b vaccine, conjugate unspecified formulation Unknown Completed [facility] Haemophilus influenzae type b vaccine, conjugate unspecified formulation Unknown Completed [facility] Meningococcal Polysaccharide (groups A, C, Y and W-135) conjugate vaccine (MCV4P) Unknown Completed [facility] MMR Unknown Completed [facility] MMR Unknown Completed [facility] MMR Unknown Completed [facility] MMR Unknown Completed [facility] Poliovirus, Live, Oral, Trivalent Unknown Completed [facility] Poliovirus, Live, Oral, Trivalent Unknown Completed [facility] Poliovirus, Live, Oral, Trivalent Unknown Completed [facility] TDAP Unknown Completed [facility] Varicella (varivax)(chicken pox) Unknown Completed [facility] DTaP, Unspecified Formulation Unknown Completed [facility] DTaP, Unspecified Formulation Unknown Completed [facility] DTaP, Unspecified Formulation Unknown Completed [facility] DTaP, Unspecified Formulation Unknown Completed [facility] DPT/HIB Unknown Completed [facility] Hepatitis A Adult [facility] Com[facility] Hep B, Adol or Pedi Dosage Unknown Completed [facility] Hep B, Adol or Pedi Dosage Unknown Completed [facility] Hep B, Adol or Pedi Dosage Unknown Completed [facility] Haemophilus influenzae type b vaccine, conjugate unspecified formulation Unknown Completed [facility] Haemophilus influenzae type b vaccine, conjugate unspecified formulation Unknown Completed [facility] Meningococcal Polysaccharide (groups A, C, Y and W-135) conjugate vaccine (MCV4P) Unknown Completed [facility] MMR Unknown Completed [facility] MMR Unknown Completed [facility] MMR Unknown Completed [facility] MMR Unknown Completed [facility] Poliovirus, Live, Oral, Trivalent Unknown Completed [facility] Poliovirus, Live, Oral, Trivalent Unknown Completed [facility] Poliovirus, Live, Oral, Trivalent Unknown Completed [facility] TDAP Unknown Completed [facility] Varicella (varivax)(chicken pox) Unknown Completed [facility] DTaP, Unspecified Formulation Unknown Completed [facility] DTaP, Unspecified Formulation Unknown Completed [facility] DTaP, Unspecified Formulation Unknown Completed [facility] DTaP, Unspecified Formulation Unknown Completed [facility] DPT/HIB Unknown Completed [facility] Hepatitis A Adult Unknown Completed [facility] HEPATITIS A Unknown Completed [facility] Hep B, Adol or Pedi Dosage Unknown Completed [facility] Hep B, Adol or Pedi Dosage Unknown Completed [facility] Hep B, Adol or Pedi Dosage Unknown Completed [facility] Haemophilus influenzae type b vaccine, conjugate unspecified formulation Unknown Completed [facility] Haemophilus influenzae type b vaccine, conjugate unspecified formulation Unknown Completed [facility] Meningococcal Polysaccharide (groups A, C, Y and W-135) conjugate vaccine (MCV4P) Unknown Completed [facility] MMR Unknown Completed [facility] MMR Unknown Completed [facility] MMR Unknown Completed [facility] MMR Unknown Completed [facility] Poliovirus, Live, Oral, Trivalent Unknown Completed [facility] Poliovirus, Live, Oral, Trivalent Unknown Completed [facility] Poliovirus, Live, Oral, Trivalent Unknown Completed [facility] TDAP Unknown Completed [facility] Varicella (varivax)(chicken pox) Unknown Completed [facility] DTaP, Unspecified Formulation Unknown Completed [facility] DTaP, Unspecified Formulation Unknown Completed [facility] DTaP, Unspecified Formulation Unknown Completed [facility] DTaP, Unspecified Formulation Unknown Completed [facility] DPT/HIB Unknown Completed [facility] Hepatitis A Adult Unknown Completed Un [facility] HEPATITIS A Unknown Completed [facility] Hep B, Adol or Pedi Dosage Unknown Completed [facility] Hep B, Adol or Pedi Dosage Unknown Completed [facility] Hep B, Adol or Pedi Dosage Unknown Completed [facility] Haemophilus influenzae type b vaccine, conjugate unspecified formulation Unknown Completed [facility] Haemophilus influenzae type b vaccine, conjugate unspecified formulation Unknown Completed [facility] Meningococcal Polysaccharide (groups A, C, Y and W-135) conjugate vaccine (MCV4P) Unknown Completed [facility] MMR Unknown Completed [facility] MMR Unknown Completed [facility] MMR Unknown Completed [facility] MMR Unknown Completed [facility] Poliovirus, Live, Oral, Trivalent Unknown Completed [facility] Poliovirus, Live, Oral, Trivalent Unknown Completed [facility] Poliovirus, Live, Oral, Trivalent Unknown Completed [facility] TDAP Unknown Completed [facility] Varicella (varivax)(chicken pox) Unknown Completed [facility] DTaP, Unspecified Formulation Unknown Completed [facility] DTaP, Unspecified Formulation Unknown Completed [facility] DTaP, Unspecified Formulation Unknown Completed [facility] DTaP, Unspecified Formulation Unknown Completed [facility] DPT/HIB Unknown Completed [facility] Hepatitis A Adult Unknown Completed Un [facility] HEPATITIS A Unknown Completed [facility] Hep B, Adol or Pedi Dosage Unknown Completed [facility] Hep B, Adol or Pedi Dosage Unknown Completed [facility] Hep B, Adol or Pedi Dosage Unknown Completed [facility] Haemophilus influenzae type b vaccine, conjugate unspecified formulation Unknown Completed [facility] Haemophilus influenzae type b vaccine, conjugate unspecified formulation Unknown Completed [facility] Meningococcal Polysaccharide (groups A, C, Y and W-135) conjugate vaccine (MCV4P) Unknown Completed [facility] MMR Unknown Completed [facility] MMR Unknown Completed [facility] MMR Unknown Completed [facility] MMR Unknown Completed [facility] Poliovirus, Live, Oral, Trivalent Unknown Completed [facility] Poliovirus, Live, Oral, Trivalent Unknown Completed [facility] Poliovirus, Live, Oral, Trivalent Unknown Completed [facility] TDAP Unknown Completed [facility] Varicella (varivax)(chicken pox) Unknown Completed [facility] DTaP, Unspecified Formulation Unknown Completed [facility] DTaP, Unspecified Formulation Unknown Completed [facility] DTaP, Unspecified Formulation Unknown Completed [facility] DTaP, Unspecified Formulation Unknown Completed [facility] DPT/HIB Unknown Completed [facility] Hepatitis A Adult Unknown [facility] Unknown Completed [facility] Hep B, Adol or Pedi Dosage Unknown Completed [facility] Hep B, Adol or Pedi Dosage Unknown Completed [facility] Hep B, Adol or Pedi Dosage Unknown Completed [facility] Haemophilus influenzae type b vaccine, conjugate unspecified formulation Unknown Completed [facility] Haemophilus influenzae type b vaccine, conjugate unspecified formulation Unknown Completed [facility] Meningococcal Polysaccharide (groups A, C, Y and W-135) conjugate vaccine (MCV4P) Unknown Completed [facility] MMR Unknown Completed [facility] MMR Unknown Completed [facility] MMR Unknown Completed [facility] MMR Unknown Completed [facility] Poliovirus, Live, Oral, Trivalent Unknown Completed [facility] Poliovirus, Live, Oral, Trivalent Unknown Completed [facility] Poliovirus, Live, Oral, Trivalent Unknown Completed [facility] TDAP Unknown Completed [facility] Varicella (varivax)(chicken pox) Unknown Completed [facility] DTaP, Unspecified Formulation Unknown Completed [facility] DTaP, Unspecified Formulation Unknown Completed [facility] DTaP, Unspecified Formulation Unknown Completed [facility] DTaP, Unspecified Formulation Unknown Completed [facility] DPT/HIB Unknown Completed [facility] Hepatitis A Adult Unknown [facility] Unknown Completed [facility] Hep B, Adol or Pedi Dosage Unknown Completed [facility] Hep B, Adol or Pedi Dosage Unknown Completed [facility] Hep B, Adol or Pedi Dosage Unknown Completed [facility] Haemophilus influenzae type b vaccine, conjugate unspecified formulation Unknown Completed [facility] Haemophilus influenzae type b vaccine, conjugate unspecified formulation Unknown Completed [facility] Meningococcal Polysaccharide (groups A, C, Y and W-135) conjugate vaccine (MCV4P) Unknown Completed [facility] MMR Unknown Completed [facility] MMR Unknown Completed [facility] MMR Unknown Completed [facility] MMR Unknown Completed [facility] Poliovirus, Live, Oral, Trivalent Unknown Completed [facility] Poliovirus, Live, Oral, Trivalent Unknown Completed [facility] Poliovirus, Live, Oral, Trivalent Unknown Completed [facility] TDAP Unknown Completed [facility] Varicella (varivax)(chicken pox) Unknown Completed [facility] DTaP, Unspecified Formulation Unknown Completed [facility] DTaP, Unspecified Formulation Unknown Completed [facility] DTaP, Unspecified Formulation Unknown Completed [facility] DTaP, Unspecified Formulation Unknown Completed [facility] DPT/HIB Unknown Completed [facility] Hepatitis A Adult Unknown Completed [facility] HEPATITIS A Unknown Completed [facility] Hep B, Adol or Pedi Dosage Unknown Completed [facility] Hep B, Adol or Pedi Dosage Unknown Completed [facility] Hep B, Adol or Pedi Dosage Unknown Completed [facility] Haemophilus influenzae type b vaccine, conjugate unspecified formulation Unknown Completed [facility] Haemophilus influenzae type b vaccine, conjugate unspecified formulation Unknown Completed [facility] Meningococcal Polysaccharide (groups A, C, Y and W-135) conjugate vaccine (MCV4P) Unknown Completed [facility] MMR Unknown Completed [facility] MMR Unknown Completed [facility] MMR Unknown Completed [facility] MMR Unknown Completed [facility] Poliovirus, Live, Oral, Trivalent Unknown Completed [facility] Poliovirus, Live, Oral, Trivalent Unknown Completed [facility] Poliovirus, Live, Oral, Trivalent Unknown Completed [facility] TDAP Unknown Completed [facility] Varicella (varivax)(chicken pox) Unknown Completed [facility] DTaP, Unspecified Formulation Unknown Completed [facility] DTaP, Unspecified Formulation Unknown Completed [facility] DTaP, Unspecified Formulation Unknown Completed [facility] DTaP, Unspecified Formulation Unknown Completed [facility] DPT/HIB Unknown Completed [facility] Hepatitis A Adult Unknown [facility] Unknown Completed [facility] Hep B, Adol or Pedi Dosage Unknown Completed [facility] Hep B, Adol or Pedi Dosage Unknown Completed [facility] Hep B, Adol or Pedi Dosage Unknown Completed [facility] Haemophilus influenzae type b vaccine, conjugate unspecified formulation Unknown Completed [facility] Haemophilus influenzae type b vaccine, conjugate unspecified formulation Unknown Completed [facility] Meningococcal Polysaccharide (groups A, C, Y and W-135) conjugate vaccine (MCV4P) Unknown Completed [facility] MMR Unknown Completed [facility] MMR Unknown Completed [facility] MMR Unknown Completed [facility] MMR Unknown Completed [facility] Poliovirus, Live, Oral, Trivalent Unknown Completed [facility] Poliovirus, Live, Oral, Trivalent Unknown Completed [facility] Poliovirus, Live, Oral, Trivalent Unknown Completed [facility] TDAP Unknown Completed [facility] Varicella (varivax)(chicken pox) Unknown Completed [facility] DTaP, Unspecified Formulation Unknown Completed [facility] DTaP, Unspecified Formulation Unknown Completed [facility] DTaP, Unspecified Formulation Unknown Completed [facility] DTaP, Unspecified Formulation Unknown Completed [facility] DPT/HIB Unknown Completed [facility] Hepatitis A Adult Unknown Com[facility] HEPATITIS A Unknown Completed [facility] Hep B, Adol or Pedi Dosage Unknown Completed [facility] Hep B, Adol or Pedi Dosage Unknown Completed [facility] Hep B, Adol or Pedi Dosage Unknown Completed [facility] Haemophilus influenzae type b vaccine, conjugate unspecified formulation Unknown Completed [facility] Haemophilus influenzae type b vaccine, conjugate unspecified formulation Unknown Completed [facility] Meningococcal Polysaccharide (groups A, C, Y and W-135) conjugate vaccine (MCV4P) Unknown Completed [facility] MMR Unknown Completed [facility] MMR Unknown Completed [facility] MMR Unknown Completed [facility] MMR Unknown Completed [facility] Poliovirus, Live, Oral, Trivalent Unknown Completed [facility] Poliovirus, Live, Oral, Trivalent Unknown Completed [facility] Poliovirus, Live, Oral, Trivalent Unknown Completed [facility] TDAP Unknown Completed [facility] Varicella (varivax)(chicken pox) Unknown Completed [facility] DTaP, Unspecified Formulation Unknown Completed [facility] DTaP, Unspecified Formulation Unknown Completed [facility] DTaP, Unspecified Formulation Unknown Completed [facility] DTaP, Unspecified Formulation Unknown Completed [facility] DPT/HIB Unknown Completed [facility] Hepatitis A Adult Unknown Completed [facility] HEPATITIS A Unknown Completed [facility] Hep B, Adol or Pedi Dosage Unknown Completed [facility] Hep B, Adol or Pedi Dosage Unknown Completed [facility] Hep B, Adol or Pedi Dosage Unknown Completed [facility] Haemophilus influenzae type b vaccine, conjugate unspecified formulation Unknown Completed [facility] Haemophilus influenzae type b vaccine, conjugate unspecified formulation Unknown Completed [facility] Meningococcal Polysaccharide (groups A, C, Y and W-135) conjugate vaccine (MCV4P) Unknown Completed [facility] MMR Unknown Completed [facility] MMR Unknown Completed [facility] MMR Unknown Completed [facility] MMR Unknown Completed [facility] Poliovirus, Live, Oral, Trivalent Unknown Completed [facility] Poliovirus, Live, Oral, Trivalent Unknown Completed [facility] Poliovirus, Live, Oral, Trivalent Unknown Completed [facility] TDAP Unknown Completed [facility] Varicella (varivax)(chicken pox) Unknown Completed [facility] DTaP, Unspecified Formulation Unknown Completed [facility] DTaP, Unspecified Formulation Unknown Completed [facility] DTaP, Unspecified Formulation Unknown Completed [facility] DTaP, Unspecified Formulation Unknown Completed [facility] DPT/HIB Unknown Completed [facility] Hepatitis A Adult Unknown Com[facility] HEPATITIS A Unknown Completed [facility] Hep B, Adol or Pedi Dosage Unknown Completed [facility] Hep B, Adol or Pedi Dosage Unknown Completed [facility] Hep B, Adol or Pedi Dosage Unknown Completed [facility] Haemophilus influenzae type b vaccine, conjugate unspecified formulation Unknown Completed [facility] Haemophilus influenzae type b vaccine, conjugate unspecified formulation Unknown Completed [facility] Meningococcal Polysaccharide (groups A, C, Y and W-135) conjugate vaccine (MCV4P) Unknown Completed [facility] MMR Unknown Completed [facility] MMR Unknown Completed [facility] MMR Unknown Completed [facility] MMR Unknown Completed [facility] Poliovirus, Live, Oral, Trivalent Unknown Completed [facility] Poliovirus, Live, Oral, Trivalent Unknown Completed [facility] Poliovirus, Live, Oral, Trivalent Unknown Completed [facility] TDAP Unknown Completed [facility] Varicella (varivax)(chicken pox) Unknown Completed [facility] DTaP, Unspecified Formulation Unknown Completed [facility] DTaP, Unspecified Formulation Unknown Completed [facility] DTaP, Unspecified Formulation Unknown Completed [facility] DTaP, Unspecified Formulation Unknown Completed [facility] DPT/HIB Unknown Completed [facility] Hepatitis A Adult [facility] Completed [facility] Hep B, Adol or Pedi Dosage Unknown Completed [facility] Hep B, Adol or Pedi Dosage Unknown Completed [facility] Hep B, Adol or Pedi Dosage Unknown Completed [facility] Haemophilus influenzae type b vaccine, conjugate unspecified formulation Unknown Completed [facility] Haemophilus influenzae type b vaccine, conjugate unspecified formulation Unknown Completed [facility] Meningococcal Polysaccharide (groups A, C, Y and W-135) conjugate vaccine (MCV4P) Unknown Completed [facility] MMR Unknown Completed [facility] MMR Unknown Completed [facility] MMR Unknown Completed [facility] MMR Unknown Completed [facility] Poliovirus, Live, Oral, Trivalent Unknown Completed [facility] Poliovirus, Live, Oral, Trivalent Unknown Completed [facility] Poliovirus, Live, Oral, Trivalent Unknown Completed [facility] TDAP Unknown Completed [facility] Varicella (varivax)(chicken pox) Unknown Completed [facility] DTaP, Unspecified Formulation Unknown Completed [facility] DTaP, Unspecified Formulation Unknown Completed [facility] DTaP, Unspecified Formulation Unknown Completed [facility] DTaP, Unspecified Formulation Unknown Completed [facility] DPT/HIB Unknown Completed [facility] Hepatitis A Adult Unknown [facility] Unknown Completed [facility] Hep B, Adol or Pedi Dosage Unknown Completed [facility] Hep B, Adol or Pedi Dosage Unknown Completed [facility] Hep B, Adol or Pedi Dosage Unknown Completed [facility] Haemophilus influenzae type b vaccine, conjugate unspecified formulation Unknown Completed [facility] Haemophilus influenzae type b vaccine, conjugate unspecified formulation Unknown Completed [facility] Meningococcal Polysaccharide (groups A, C, Y and W-135) conjugate vaccine (MCV4P) Unknown Completed [facility] MMR Unknown Completed [facility] MMR Unknown Completed [facility] MMR Unknown Completed [facility] MMR Unknown Completed [facility] Poliovirus, Live, Oral, Trivalent Unknown Completed [facility] Poliovirus, Live, Oral, Trivalent Unknown Completed [facility] Poliovirus, Live, Oral, Trivalent Unknown Completed [facility] TDAP Unknown Completed [facility] Varicella (varivax)(chicken pox) Unknown Completed [facility] DTaP, Unspecified Formulation Unknown Completed [facility] DTaP, Unspecified Formulation Unknown Completed [facility] DTaP, Unspecified Formulation Unknown Completed [facility] DTaP, Unspecified Formulation Unknown Completed [facility] DPT/HIB Unknown Completed [facility] Hepatitis A Adult Unknown [facility] Com[facility] Hep B, Adol or Pedi Dosage Unknown Completed [facility] Hep B, Adol or Pedi Dosage Unknown Completed [facility] Hep B, Adol or Pedi Dosage Unknown Completed [facility] Haemophilus influenzae type b vaccine, conjugate unspecified formulation Unknown Completed [facility] Haemophilus influenzae type b vaccine, conjugate unspecified formulation Unknown Completed [facility] Meningococcal Polysaccharide (groups A, C, Y and W-135) conjugate vaccine (MCV4P) Unknown Completed [facility] MMR Unknown Completed [facility] MMR Unknown Completed [facility] MMR Unknown Completed [facility] MMR Unknown Completed [facility] Poliovirus, Live, Oral, Trivalent Unknown Completed [facility] Poliovirus, Live, Oral, Trivalent Unknown Completed [facility] Poliovirus, Live, Oral, Trivalent Unknown Completed [facility] TDAP Unknown Completed [facility] Varicella (varivax)(chicken pox) Unknown Completed [facility] DTaP, Unspecified Formulation Unknown Completed [facility] DTaP, Unspecified Formulation Unknown Completed [facility] DTaP, Unspecified Formulation Unknown Completed [facility] DTaP, Unspecified Formulation Unknown Completed [facility] DPT/HIB Unknown Completed [facility] Hepatitis A Adult Unknown Completed [facility] HEPATITIS A Unknown Completed [facility] Hep B, Adol or Pedi Dosage Unknown Completed [facility] Hep B, Adol or Pedi Dosage Unknown Completed [facility] Hep B, Adol or Pedi Dosage Unknown Completed [facility] Haemophilus influenzae type b vaccine, conjugate unspecified formulation Unknown Completed [facility] Haemophilus influenzae type b vaccine, conjugate unspecified formulation Unknown Completed [facility] Meningococcal Polysaccharide (groups A, C, Y and W-135) conjugate vaccine (MCV4P) Unknown Completed [facility] MMR Unknown Completed [facility] MMR Unknown Completed [facility] MMR Unknown Completed [facility] MMR Unknown Completed [facility] Poliovirus, Live, Oral, Trivalent Unknown Completed [facility] Poliovirus, Live, Oral, Trivalent Unknown Completed [facility] Poliovirus, Live, Oral, Trivalent Unknown Completed [facility] TDAP Unknown Completed [facility] Varicella (varivax)(chicken pox) Unknown Completed [facility] DTaP, Unspecified Formulation Unknown Completed [facility] DTaP, Unspecified Formulation Unknown Completed [facility] DTaP, Unspecified Formulation Unknown Completed [facility] DTaP, Unspecified Formulation Unknown Completed [facility] DPT/HIB Unknown Completed [facility] Hepatitis A Adult Unknown [facility] Com[facility] Hep B, Adol or Pedi Dosage Unknown Completed [facility] Hep B, Adol or Pedi Dosage Unknown Completed [facility] Hep B, Adol or Pedi Dosage Unknown Completed [facility] Haemophilus influenzae type b vaccine, conjugate unspecified formulation Unknown Completed [facility] Haemophilus influenzae type b vaccine, conjugate unspecified formulation Unknown Completed [facility] Meningococcal Polysaccharide (groups A, C, Y and W-135) conjugate vaccine (MCV4P) Unknown Completed [facility] MMR Unknown Completed [facility] MMR Unknown Completed [facility] MMR Unknown Completed [facility] MMR Unknown Completed [facility] Poliovirus, Live, Oral, Trivalent Unknown Completed [facility] Poliovirus, Live, Oral, Trivalent Unknown Completed [facility] Poliovirus, Live, Oral, Trivalent Unknown Completed [facility] TDAP Unknown Completed [facility] Varicella (varivax)(chicken pox) Unknown Completed [facility] DTaP, Unspecified Formulation Unknown Completed [facility] DTaP, Unspecified Formulation Unknown Completed [facility] DTaP, Unspecified Formulation Unknown Completed [facility] DTaP, Unspecified Formulation Unknown Completed [facility] DPT/HIB Unknown Completed [facility] Hepatitis A Adult Unknown [facility] Completed [facility] Hep B, Adol or Pedi Dosage Unknown Completed [facility] Hep B, Adol or Pedi Dosage Unknown Completed [facility] Hep B, Adol or Pedi Dosage Unknown Completed [facility] Haemophilus influenzae type b vaccine, conjugate unspecified formulation Unknown Completed [facility] Haemophilus influenzae type b vaccine, conjugate unspecified formulation Unknown Completed [facility] Meningococcal Polysaccharide (groups A, C, Y and W-135) conjugate vaccine (MCV4P) Unknown Completed [facility] MMR Unknown Completed [facility] MMR Unknown Completed [facility] MMR Unknown Completed [facility] MMR Unknown Completed [facility] Poliovirus, Live, Oral, Trivalent Unknown Completed [facility] Poliovirus, Live, Oral, Trivalent Unknown Completed [facility] Poliovirus, Live, Oral, Trivalent Unknown Completed [facility] TDAP Unknown Completed [facility] Varicella (varivax)(chicken pox) Unknown Completed [facility] DTaP, Unspecified Formulation Unknown Completed [facility] DTaP, Unspecified Formulation Unknown Completed [facility] DTaP, Unspecified Formulation Unknown Completed [facility] DTaP, Unspecified Formulation Unknown Completed [facility] DPT/HIB Unknown Completed [facility] Hepatitis A Adult Unknown [facility] Completed [facility] Hep B, Adol or Pedi Dosage Unknown Completed [facility] Hep B, Adol or Pedi Dosage Unknown Completed [facility] Hep B, Adol or Pedi Dosage Unknown Completed [facility] Haemophilus influenzae type b vaccine, conjugate unspecified formulation Unknown Completed [facility] Haemophilus influenzae type b vaccine, conjugate unspecified formulation Unknown Completed [facility] Meningococcal Polysaccharide (groups A, C, Y and W-135) conjugate vaccine (MCV4P) Unknown Completed [facility] MMR Unknown Completed [facility] MMR Unknown Completed [facility] MMR Unknown Completed [facility] MMR Unknown Completed [facility] Poliovirus, Live, Oral, Trivalent Unknown Completed [facility] Poliovirus, Live, Oral, Trivalent Unknown Completed [facility] Poliovirus, Live, Oral, Trivalent Unknown Completed [facility] TDAP Unknown Completed [facility] Varicella (varivax)(chicken pox) Unknown Completed [facility] DTaP, Unspecified Formulation Unknown Completed [facility] DTaP, Unspecified Formulation Unknown Completed [facility] DTaP, Unspecified Formulation Unknown Completed [facility] DTaP, Unspecified Formulation Unknown Completed [facility] DPT/HIB Unknown Completed [facility] Hepatitis A Adult Unknown [facility] Completed [facility] Hep B, Adol or Pedi Dosage Unknown Completed [facility] Hep B, Adol or Pedi Dosage Unknown Completed [facility] Haemophilus influenzae type b vaccine, conjugate unspecified formulation Unknown Completed [facility] Haemophilus influenzae type b vaccine, conjugate unspecified formulation Unknown Completed [facility] Meningococcal Polysaccharide (groups A, C, Y and W-135) conjugate vaccine (MCV4P) Unknown Completed [facility] MMR Unknown Completed [facility] MMR Unknown Completed [facility] MMR Unknown Completed [facility] MMR Unknown Completed [facility] Poliovirus, Live, Oral, Trivalent Unknown Completed [facility] Poliovirus, Live, Oral, Trivalent Unknown Completed [facility] Poliovirus, Live, Oral, Trivalent Unknown Completed [facility] TDAP Unknown Completed [facility] Varicella (varivax)(chicken pox) Unknown Completed [facility] DTaP, Unspecified Formulation Unknown Completed [facility] DTaP, Unspecified Formulation Unknown Completed [facility] DTaP, Unspecified Formulation Unknown Completed [facility] DTaP, Unspecified Formulation Unknown Completed [facility] DPT/HIB Unknown Completed [facility] Hepatitis A Adult Unknown Completed [facility] HEPATITIS A Unknown Completed [facility] Hep B, Adol or Pedi Dosage Unknown Completed [facility] Hep B, Adol or Pedi Dosage Unknown Completed [facility] Hep B, Adol or Pedi Dosage Unknown Completed [facility] Haemophilus influenzae type b vaccine, conjugate unspecified formulation Unknown Completed [facility] Haemophilus influenzae type b vaccine, conjugate unspecified formulation Unknown Completed [facility] Meningococcal Polysaccharide (groups A, C, Y and W-135) conjugate vaccine (MCV4P) Unknown Completed [facility] MMR Unknown Completed [facility] MMR Unknown Completed [facility] MMR Unknown Completed [facility] MMR Unknown Completed [facility] Poliovirus, Live, Oral, Trivalent Unknown Completed [facility] Poliovirus, Live, Oral, Trivalent Unknown Completed [facility] Poliovirus, Live, Oral, Trivalent Unknown Completed [facility] TDAP Unknown Completed [facility] Varicella (varivax)(chicken pox) Unknown Completed [facility] DTaP, Unspecified Formulation Unknown Completed [facility] DTaP, Unspecified Formulation Unknown Completed [facility] DTaP, Unspecified Formulation Unknown Completed [facility] DTaP, Unspecified Formulation Unknown Completed [facility] DPT/HIB Unknown Completed [facility] Hepatitis A Adult Unknown [facility] Completed [facility] Hep B, Adol or Pedi Dosage Unknown Completed [facility] Hep B, Adol or Pedi Dosage Unknown Completed [facility] Hep B, Adol or Pedi Dosage Unknown Completed [facility] Haemophilus influenzae type b vaccine, conjugate unspecified formulation Unknown Completed [facility] Haemophilus influenzae type b vaccine, conjugate unspecified formulation Unknown Completed [facility] Meningococcal Polysaccharide (groups A, C, Y and W-135) conjugate vaccine (MCV4P) Unknown Completed [facility] MMR Unknown Completed [facility] MMR Unknown Completed [facility] MMR Unknown Completed [facility] MMR Unknown Completed [facility] Poliovirus, Live, Oral, Trivalent Unknown Completed [facility] Poliovirus, Live, Oral, Trivalent Unknown Completed [facility] Poliovirus, Live, Oral, Trivalent Unknown Completed [facility] TDAP Unknown Completed [facility] Varicella (varivax)(chicken pox) Unknown Completed [facility] DTaP, Unspecified Formulation Unknown Completed [facility] DTaP, Unspecified Formulation Unknown Completed [facility] DTaP, Unspecified Formulation Unknown Completed [facility] DTaP, Unspecified Formulation Unknown Completed [facility] DPT/HIB Unknown Completed [facility] Hepatitis A Adult Unknown [facility] Unknown Completed [facility] Hep B, Adol or Pedi Dosage Unknown Completed [facility] Hep B, Adol or Pedi Dosage Unknown Completed [facility] Hep B, Adol or Pedi Dosage Unknown Completed [facility] Haemophilus influenzae type b vaccine, conjugate unspecified formulation Unknown Completed [facility] Haemophilus influenzae type b vaccine, conjugate unspecified formulation Unknown Completed [facility] Meningococcal Polysaccharide (groups A, C, Y and W-135) conjugate vaccine (MCV4P) Unknown Completed [facility] MMR Unknown Completed [facility] MMR Unknown Completed [facility] MMR Unknown Completed [facility] MMR Unknown Completed [facility] Poliovirus, Live, Oral, Trivalent Unknown Completed [facility] Poliovirus, Live, Oral, Trivalent Unknown Completed [facility] Poliovirus, Live, Oral, Trivalent Unknown Completed [facility] TDAP Unknown Completed [facility] Varicella (varivax)(chicken pox) Unknown Completed [facility] DTaP, Unspecified Formulation Unknown Completed [facility] DTaP, Unspecified Formulation Unknown Completed [facility] DTaP, Unspecified Formulation Unknown Completed [facility] DTaP, Unspecified Formulation Unknown Completed [facility] DPT/HIB Unknown Completed [facility] Hepatitis A Adult [facility] Hep B, Adol or Pedi Dosage Unknown Completed [facility] Hep B, Adol or Pedi Dosage Unknown Completed [facility] Hep B, Adol or Pedi Dosage Unknown Completed [facility] Haemophilus influenzae type b vaccine, conjugate unspecified formulation Unknown Completed [facility] Haemophilus influenzae type b vaccine, conjugate unspecified formulation Unknown Completed [facility] Meningococcal Polysaccharide (groups A, C, Y and W-135) conjugate vaccine (MCV4P) Unknown Completed [facility] MMR Unknown Completed [facility] MMR Unknown Completed [facility] MMR Unknown Completed [facility] MMR Unknown Completed [facility] Poliovirus, Live, Oral, Trivalent Unknown Completed [facility] Poliovirus, Live, Oral, Trivalent Unknown Completed [facility] Poliovirus, Live, Oral, Trivalent Unknown Completed [facility] TDAP Unknown Completed [facility] Varicella (varivax)(chicken pox) Unknown Completed [facility] DTaP, Unspecified Formulation Unknown Completed [facility] DTaP, Unspecified Formulation Unknown Completed [facility] DTaP, Unspecified Formulation Unknown Completed [facility] DTaP, Unspecified Formulation Unknown Completed [facility] DPT/HIB Unknown Completed [facility] Hepatitis A Adult Unknown Completed Un [facility] HEPATITIS A Unknown Completed [facility] Hep B, Adol or Pedi Dosage Unknown Completed [facility] Hep B, Adol or Pedi Dosage Unknown Completed [facility] Hep B, Adol or Pedi Dosage Unknown Completed [facility] Haemophilus influenzae type b vaccine, conjugate unspecified formulation Unknown Completed [facility] Haemophilus influenzae type b vaccine, conjugate unspecified formulation Unknown Completed [facility] Meningococcal Polysaccharide (groups A, C, Y and W-135) conjugate vaccine (MCV4P) Unknown Completed [facility] MMR Unknown Completed [facility] MMR Unknown Completed [facility] MMR Unknown Completed [facility] MMR Unknown Completed [facility] Poliovirus, Live, Oral, Trivalent Unknown Completed [facility] Poliovirus, Live, Oral, Trivalent Unknown Completed [facility] Poliovirus, Live, Oral, Trivalent Unknown Completed [facility] TDAP Unknown Completed [facility] Varicella (varivax)(chicken pox) Unknown Completed [facility] DTaP, Unspecified Formulation Unknown Completed [facility] DTaP, Unspecified Formulation Unknown Completed [facility] DTaP, Unspecified Formulation Unknown Completed [facility] DTaP, Unspecified Formulation Unknown Completed [facility] DPT/HIB Unknown Completed [facility] Hepatitis A Adult Unknown Completed Un [facility] HEPATITIS A Unknown Completed [facility] Hep B, Adol or Pedi Dosage Unknown Completed [facility] Hep B, Adol or Pedi Dosage Unknown Completed [facility] Hep B, Adol or Pedi Dosage Unknown Completed [facility] Haemophilus influenzae type b vaccine, conjugate unspecified formulation Unknown Completed [facility] Haemophilus influenzae type b vaccine, conjugate unspecified formulation Unknown Completed [facility] Meningococcal Polysaccharide (groups A, C, Y and W-135) conjugate vaccine (MCV4P) Unknown Completed [facility] MMR Unknown Completed [facility] MMR Unknown Completed [facility] MMR Unknown Completed [facility] MMR Unknown Completed [facility] Poliovirus, Live, Oral, Trivalent Unknown Completed [facility] Poliovirus, Live, Oral, Trivalent Unknown Completed [facility] Poliovirus, Live, Oral, Trivalent Unknown Completed [facility] TDAP Unknown Completed [facility] Varicella (varivax)(chicken pox) Unknown Completed [facility] DTaP, Unspecified Formulation Unknown Completed [facility] DTaP, Unspecified Formulation Unknown Completed [facility] DTaP, Unspecified Formulation Unknown Completed [facility] DTaP, Unspecified Formulation Unknown Completed [facility] DPT/HIB Unknown Completed [facility] Hepatitis A Adult Unknown [facility] Hep B, Adol or Pedi Dosage Unknown Completed [facility] Hep B, Adol or Pedi Dosage Unknown Completed [facility] Hep B, Adol or Pedi Dosage Unknown Completed [facility] Haemophilus influenzae type b vaccine, conjugate unspecified formulation Unknown Completed [facility] Haemophilus influenzae type b vaccine, conjugate unspecified formulation Unknown Completed [facility] Meningococcal Polysaccharide (groups A, C, Y and W-135) conjugate vaccine (MCV4P) Unknown Completed [facility] MMR Unknown Completed [facility] MMR Unknown Completed [facility] MMR Unknown Completed [facility] MMR Unknown Completed [facility] Poliovirus, Live, Oral, Trivalent Unknown Completed [facility] Poliovirus, Live, Oral, Trivalent Unknown Completed [facility] Poliovirus, Live, Oral, Trivalent Unknown Completed [facility] TDAP Unknown Completed [facility] Varicella (varivax)(chicken pox) Unknown Completed [facility] DTaP, Unspecified Formulation Unknown Completed [facility] DTaP, Unspecified Formulation Unknown Completed [facility] DTaP, Unspecified Formulation Unknown Completed [facility] DTaP, Unspecified Formulation Unknown Completed [facility] DPT/HIB Unknown Completed [facility] Hepatitis A Adult Unknown [facility] Hep B, Adol or Pedi Dosage Unknown Completed [facility] Hep B, Adol or Pedi Dosage Unknown Completed [facility] Hep B, Adol or Pedi Dosage Unknown Completed [facility] Haemophilus influenzae type b vaccine, conjugate unspecified formulation Unknown Completed [facility] Haemophilus influenzae type b vaccine, conjugate unspecified formulation Unknown Completed [facility] Meningococcal Polysaccharide (groups A, C, Y and W-135) conjugate vaccine (MCV4P) Unknown Completed [facility] MMR Unknown Completed [facility] MMR Unknown Completed [facility] MMR Unknown Completed [facility] MMR Unknown Completed [facility] Poliovirus, Live, Oral, Trivalent Unknown Completed [facility] Poliovirus, Live, Oral, Trivalent Unknown Completed [facility] Poliovirus, Live, Oral, Trivalent Unknown Completed [facility] TDAP Unknown Completed [facility] Varicella (varivax)(chicken pox) Unknown Completed [facility] DTaP, Unspecified Formulation Unknown Completed [facility] DTaP, Unspecified Formulation Unknown Completed [facility] DTaP, Unspecified Formulation Unknown Completed [facility] DTaP, Unspecified Formulation Unknown Completed [facility] DPT/HIB Unknown Completed [facility] Hepatitis A Adult Unknown Completed [facility] HEPATITIS A Unknown Completed [facility] Hep B, Adol or Pedi Dosage Unknown Completed [facility] Hep B, Adol or Pedi Dosage Unknown Completed [facility] Hep B, Adol or Pedi Dosage Unknown Completed [facility] Haemophilus influenzae type b vaccine, conjugate unspecified formulation Unknown Completed [facility] Haemophilus influenzae type b vaccine, conjugate unspecified formulation Unknown Completed [facility] Meningococcal Polysaccharide (groups A, C, Y and W-135) conjugate vaccine (MCV4P) Unknown Completed [facility] MMR Unknown Completed [facility] MMR Unknown Completed [facility] MMR Unknown Completed [facility] MMR Unknown Completed [facility] Poliovirus, Live, Oral, Trivalent Unknown Completed [facility] Poliovirus, Live, Oral, Trivalent Unknown Completed [facility] Poliovirus, Live, Oral, Trivalent Unknown Completed [facility] TDAP Unknown Completed [facility] Varicella (varivax)(chicken pox) Unknown Completed [facility] DTaP, Unspecified Formulation Unknown Completed [facility] DTaP, Unspecified Formulation Unknown Completed [facility] DTaP, Unspecified Formulation Unknown Completed [facility] DTaP, Unspecified Formulation Unknown Completed [facility] DPT/HIB Unknown Completed [facility] Hepatitis A Adult Unknown [facility] Hep B, Adol or Pedi Dosage Unknown Completed [facility] Hep B, Adol or Pedi Dosage Unknown Completed [facility] Hep B, Adol or Pedi Dosage Unknown Completed [facility] Haemophilus influenzae type b vaccine, conjugate unspecified formulation Unknown Completed [facility] Haemophilus influenzae type b vaccine, conjugate unspecified formulation Unknown Completed [facility] Meningococcal Polysaccharide (groups A, C, Y and W-135) conjugate vaccine (MCV4P) Unknown Completed [facility] MMR Unknown Completed [facility] MMR Unknown Completed [facility] MMR Unknown Completed [facility] MMR Unknown Completed [facility] Poliovirus, Live, Oral, Trivalent Unknown Completed [facility] Poliovirus, Live, Oral, Trivalent Unknown Completed [facility] Poliovirus, Live, Oral, Trivalent Unknown Completed [facility] TDAP Unknown Completed [facility] Varicella (varivax)(chicken pox) Unknown Completed [facility] DTaP, Unspecified Formulation Unknown Completed [facility] DTaP, Unspecified Formulation Unknown Completed [facility] DTaP, Unspecified Formulation Unknown Completed [facility] DTaP, Unspecified Formulation Unknown Completed [facility] DPT/HIB Unknown Completed [facility] Hepatitis A Adult Unknown Completed Un [facility] HEPATITIS A Unknown Completed [facility] Hep B, Adol or Pedi Dosage Unknown Completed [facility] Hep B, Adol or Pedi Dosage Unknown Completed [facility] Hep B, Adol or Pedi Dosage Unknown Completed [facility] Haemophilus influenzae type b vaccine, conjugate unspecified formulation Unknown Completed [facility] Haemophilus influenzae type b vaccine, conjugate unspecified formulation Unknown Completed [facility] Meningococcal Polysaccharide (groups A, C, Y and W-135) conjugate vaccine (MCV4P) Unknown Completed [facility] MMR Unknown Completed [facility] MMR Unknown Completed [facility] MMR Unknown Completed [facility] MMR Unknown Completed [facility] Poliovirus, Live, Oral, Trivalent Unknown Completed [facility] Poliovirus, Live, Oral, Trivalent Unknown Completed [facility] Poliovirus, Live, Oral, Trivalent Unknown Completed [facility] TDAP Unknown Completed [facility] Varicella (varivax)(chicken pox) Unknown Completed [facility] DTaP, Unspecified Formulation Unknown Completed [facility] DTaP, Unspecified Formulation Unknown Completed [facility] DTaP, Unspecified Formulation Unknown Completed [facility] DTaP, Unspecified Formulation Unknown Completed [facility] DPT/HIB Unknown Completed [facility] Hepatitis A Adult Unknown Completed Un [facility] HEPATITIS A Unknown Completed [facility] Hep B, Adol or Pedi Dosage Unknown Completed [facility] Hep B, Adol or Pedi Dosage Unknown Completed [facility] Hep B, Adol or Pedi Dosage Unknown Completed [facility] Haemophilus influenzae type b vaccine, conjugate unspecified formulation Unknown Completed [facility] Haemophilus influenzae type b vaccine, conjugate unspecified formulation Unknown Completed [facility] Meningococcal Polysaccharide (groups A, C, Y and W-135) conjugate vaccine (MCV4P) Unknown Completed [facility] MMR Unknown Completed [facility] MMR Unknown Completed [facility] MMR Unknown Completed [facility] MMR Unknown Completed [facility] Poliovirus, Live, Oral, Trivalent Unknown Completed [facility] Poliovirus, Live, Oral, Trivalent Unknown Completed [facility] Poliovirus, Live, Oral, Trivalent Unknown Completed [facility] TDAP Unknown Completed [facility] Varicella (varivax)(chicken pox) Unknown Completed [facility] DTaP, Unspecified Formulation Unknown Completed [facility] DTaP, Unspecified Formulation Unknown Completed [facility] DTaP, Unspecified Formulation Unknown Completed [facility] DTaP, Unspecified Formulation Unknown Completed [facility] DPT/HIB Unknown Completed [facility] Hepatitis A Adult Unknown [facility] Hep B, Adol or Pedi Dosage Unknown Completed [facility] Hep B, Adol or Pedi Dosage Unknown Completed [facility] Hep B, Adol or Pedi Dosage Unknown Completed [facility] Haemophilus influenzae type b vaccine, conjugate unspecified formulation Unknown Completed [facility] Haemophilus influenzae type b vaccine, conjugate unspecified formulation Unknown Completed [facility] Meningococcal Polysaccharide (groups A, C, Y and W-135) conjugate vaccine (MCV4P) Unknown Completed [facility] MMR Unknown Completed [facility] MMR Unknown Completed [facility] MMR Unknown Completed [facility] MMR Unknown Completed [facility] Poliovirus, Live, Oral, Trivalent Unknown Completed [facility] Poliovirus, Live, Oral, Trivalent Unknown Completed [facility] Poliovirus, Live, Oral, Trivalent Unknown Completed [facility] TDAP Unknown Completed [facility] Varicella (varivax)(chicken pox) Unknown Completed [facility] DTaP, Unspecified Formulation Unknown Completed [facility] DTaP, Unspecified Formulation Unknown Completed [facility] DTaP, Unspecified Formulation Unknown Completed [facility] DTaP, Unspecified Formulation Unknown Completed [facility] DPT/HIB Unknown Completed [facility] Hepatitis A Adult Unknown Completed [facility] HEPATITIS A Unknown Completed [facility] Hep B, Adol or Pedi Dosage Unknown Completed [facility] Hep B, Adol or Pedi Dosage Unknown Completed [facility] Hep B, Adol or Pedi Dosage Unknown Completed [facility] Haemophilus influenzae type b vaccine, conjugate unspecified formulation Unknown Completed [facility] Haemophilus influenzae type b vaccine, conjugate unspecified formulation Unknown Completed [facility] Meningococcal Polysaccharide (groups A, C, Y and W-135) conjugate vaccine (MCV4P) Unknown Completed [facility] MMR Unknown Completed [facility] MMR Unknown Completed [facility] MMR Unknown Completed [facility] MMR Unknown Completed [facility] Poliovirus, Live, Oral, Trivalent Unknown Completed [facility] Poliovirus, Live, Oral, Trivalent Unknown Completed [facility] Poliovirus, Live, Oral, Trivalent Unknown Completed [facility] TDAP Unknown Completed [facility] Varicella (varivax)(chicken pox) Unknown Completed [facility] DTaP, Unspecified Formulation Unknown Completed [facility] DTaP, Unspecified Formulation Unknown Completed [facility] DTaP, Unspecified Formulation Unknown Completed [facility] DTaP, Unspecified Formulation Unknown Completed [facility] DPT/HIB Unknown Completed [facility] Hepatitis A Adult Unknown [facility] Completed [facility] Hep B, Adol or Pedi Dosage Unknown Completed [facility] Hep B, Adol or Pedi Dosage Unknown Completed [facility] Hep B, Adol or Pedi Dosage Unknown Completed [facility] Haemophilus influenzae type b vaccine, conjugate unspecified formulation Unknown Completed [facility] Haemophilus influenzae type b vaccine, conjugate unspecified formulation Unknown Completed [facility] Meningococcal Polysaccharide (groups A, C, Y and W-135) conjugate vaccine (MCV4P) Unknown Completed [facility] MMR Unknown Completed [facility] MMR Unknown Completed [facility] MMR Unknown Completed [facility] MMR Unknown Completed [facility] Poliovirus, Live, Oral, Trivalent Unknown Completed [facility] Poliovirus, Live, Oral, Trivalent Unknown Completed [facility] Poliovirus, Live, Oral, Trivalent Unknown Completed [facility] TDAP Unknown Completed [facility] Varicella (varivax)(chicken pox) Unknown Completed [facility] Vital Signs Vital Name Observation Time Observation Value Comments S ource Systolic blood pressure 2023-12-20 17:49:00 130 mm[Hg] [facility] Diastolic blood pressure 2023-12-20 17:49:00 87 mm[Hg] [facility] Heart rate 2023-12-20 17:49:00 74 /min [facility] Body temperature 2023-12-20 17:49:00 37.06 Annabella [facility] Respiratory rate 2023-12-20 17:49:00 17 /min [facility] Body height 2023-12-20 17:49:00 188 cm [facility] Body weight 2023-12-20 17:49:00 99.083 kg [facility] BMI 2023-12-20 17:49:00 28.05 kg/m2 [facility] Oxygen saturation in Arterial blood by Pulse oximetry 2023-12-20 17:49:00 96 /min [facility] Systolic blood pressure 2023-08-13 00:00:00 145 mm[Hg] [facility] Diastolic blood pressure 2023-08-13 00:00:00 99 mm[Hg] [facility] Heart rate 2023-08-13 00:00:00 86 /min [facility] Respiratory rate 2023-08-13 00:00:00 16 /min [facility] Oxygen saturation in Arterial blood by Pulse oximetry 2023-08-13 00:00:00 97 /min [facility] Body temperature 2023-08-12 21:56:00 36.72 Annabella [facility] Body height 2023-08-12 21:56:00 188 cm [facility] Body weight 2023-08-12 21:56:00 101.606 kg [facility] BMI 2023-08-12 21:56:00 28.76 kg/m2 [facility] Systolic blood pressure 2023-07-05 15:10:00 131 mm[Hg] [facility] Diastolic blood pressure 2023-07-05 15:10:00 77 mm[Hg] [facility] Body temperature 2023-07-05 15:10:00 36.44 Annabella [facility] Body height 2023-07-05 15:10:00 188 cm [facility] Body weight 2023-07-05 15:10:00 101.606 kg [facility] BMI 2023-07-05 15:10:00 28.76 kg/m2 [facility] Body height 2023-06-06 20:17:00 188 cm [facility] Body weight 2023-06-06 20:17:00 99.791 kg [facility] BMI 2023-06-06 20:17:00 28.25 kg/m2 [facility] Systolic blood pressure 2023-05-25 19:35:00 145 mm[Hg] [facility] Diastolic blood pressure 2023-05-25 19:35:00 103 mm[Hg] [facility] Heart rate 2023-05-25 19:35:00 84 /min [facility] Body temperature 2023-05-25 19:35:00 36.72 Annabella [facility] Respiratory rate 2023-05-25 19:35:00 18 /min [facility] Body height 2023-05-25 19:35:00 188 cm [facility] Body weight 2023-05-25 19:35:00 99.791 kg [facility] BMI 2023-05-25 19:35:00 28.25 kg/m2 [facility] Oxygen saturation in Arterial blood by Pulse oximetry 2023-05-25 19:35:00 100 /min [facility] Systolic blood pressure 2023-05-16 15:17:00 136 mm[Hg] [facility] Diastolic blood pressure 2023-05-16 15:17:00 84 mm[Hg] [facility] Heart rate 2023-05-16 15:17:00 68 /min [facility] Body height 2023-05-16 15:17:00 188 cm [facility] Body weight 2023-05-16 15:17:00 99.791 kg [facility] BMI 2023-05-16 15:17:00 28.25 kg/m2 [facility] Systolic blood pressure 2023-04-30 15:51:00 130 mm[Hg] [facility] Diastolic blood pressure 2023-04-30 15:51:00 88 mm[Hg] [facility] Heart rate 2023-04-30 15:49:00 68 /min [facility] Respiratory rate 2023-04-30 15:49:00 18 /min [facility] Body height 2023-04-30 15:49:00 188 cm [facility] Body weight 2023-04-30 15:49:00 99.791 kg [facility] BMI 2023-04-30 15:49:00 28.25 kg/m2 [facility] Oxygen saturation in Arterial blood by Pulse oximetry 2023-04-30 15:49:00 98 /min [facility] Systolic blood pressure 2023-04-23 20:31:00 134 mm[Hg] [facility] Diastolic blood pressure 2023-04-23 20:31:00 87 mm[Hg] [facility] Heart rate 2023-04-23 20:31:00 78 /min [facility] Respiratory rate 2023-04-23 20:31:00 18 /min [facility] Body height 2023-04-23 20:31:00 182.9 cm [facility] Body weight 2023-04-23 20:31:00 100.925 kg [facility] BMI 2023-04-23 20:31:00 30.18 kg/m2 [facility] Oxygen saturation in Arterial blood by Pulse oximetry 2023-04-23 20:31:00 96 /min [facility] Systolic blood pressure 2023-01-03 19:17:00 136 mm[Hg] [facility] Diastolic blood pressure 2023-01-03 19:17:00 84 mm[Hg] [facility] Heart rate 2023-01-03 19:17:00 83 /min [facility] Body temperature 2023-01-03 19:13:00 36.61 Annabella [facility] Body height 2023-01-03 19:13:00 188 cm [facility] Body weight 2023-01-03 19:13:00 99.202 kg [facility] BMI 2023-01-03 19:13:00 28.08 kg/m2 [facility] Oxygen saturation in Arterial blood by Pulse oximetry 2023-01-03 19:13:00 98 /min [facility] Systolic blood pressure 2022-12-12 20:32:00 143 mm[Hg] [facility] Diastolic blood pressure 2022-12-12 20:32:00 92 mm[Hg] [facility] Heart rate 2022-12-12 20:19:00 92 /min [facility] Respiratory rate 2022-12-12 20:19:00 22 /min [facility] Body height 2022-12-12 20:19:00 188 cm [facility] Body weight 2022-12-12 20:19:00 97.977 kg [facility] BMI 2022-12-12 20:19:00 27.73 kg/m2 [facility] Oxygen saturation in Arterial blood by Pulse oximetry 2022-12-12 20:19:00 99 /min [facility] Systolic blood pressure 2022-12-12 01:19:00 151 mm[Hg] [facility] Diastolic blood pressure 2022-12-12 01:19:00 97 mm[Hg] [facility] Heart rate 2022-12-12 01:19:00 86 /min [facility] Respiratory rate 2022-12-12 01:19:00 18 /min [facility] Oxygen saturation in Arterial blood by Pulse oximetry 2022-12-12 01:19:00 99 /min [facility] Body temperature 2022-12-11 23:51:47 36.67 Annabella [facility] Body weight 2022-12-11 22:02:00 97.977 kg [facility] BMI 2022-12-11 22:02:00 27.73 kg/m2 [facility] Systolic blood pressure 2022-12-08 23:30:00 145 mm[Hg] [facility] Diastolic blood pressure 2022-12-08 23:30:00 95 mm[Hg] [facility] Heart rate 2022-12-08 23:30:00 61 /min [facility] Respiratory rate 2022-12-08 23:30:00 16 /min [facility] Oxygen saturation in Arterial blood by Pulse oximetry 2022-12-08 23:30:00 98 /min [facility] Body temperature 2022-12-08 20:26:00 36.78 Annabella [facility] Body height 2022-12-08 20:26:00 188 cm [facility] Body weight 2022-12-08 20:26:00 97.977 kg [facility] 2022-12-08 20:26:00 27.73 kg/m2 [facility] Systolic blood pressure 2022-12-05 18:21:00 138 mm[Hg] [facility] Diastolic blood pressure 2022-12-05 18:21:00 100 mm[Hg] [facility] Heart rate 2022-12-05 18:21:00 77 /min [facility] Oxygen saturation in Arterial blood by Pulse oximetry 2022-12-05 18:21:00 98 /min [facility] Body temperature 2022-12-05 18:19:00 36.61 Annabella [facility] Respiratory rate 2022-12-05 18:19:00 18 /min [facility] Body height 2022-12-05 18:19:00 188 cm [facility] Body weight 2022-12-05 18:19:00 97.07 kg [facility] BMI 2022-12-05 18:19:00 27.48 kg/m2 [facility] Systolic blood pressure 2022-12-05 14:58:00 131 mm[Hg] [facility] Diastolic blood pressure 2022-12-05 14:58:00 93 mm[Hg] [facility] Heart rate 2022-12-05 14:50:00 86 /min [facility] Body temperature 2022-12-05 14:50:00 36.5 Annabella [facility] Respiratory rate 2022-12-05 14:50:00 18 /min [facility] Body height 2022-12-05 14:50:00 188 cm [facility] Body weight 2022-12-05 14:50:00 98.294 kg [facility] BMI 2022-12-05 14:50:00 27.82 kg/m2 [facility] Oxygen saturation in Arterial blood by Pulse oximetry 2022-12-05 14:50:00 99 /min [facility] Systolic blood pressure 2022-11-14 01:41:47 150 mm[Hg] [facility] Diastolic blood pressure 2022-11-14 01:41:47 106 mm[Hg] [facility] Heart rate 2022-11-14 01:41:47 64 /min [facility] Body temperature 2022-11-14 01:41:47 37.28 Annabella [facility] Respiratory rate 2022-11-14 01:41:47 18 /min [facility] Oxygen saturation in Arterial blood by Pulse oximetry 2022-11-14 01:41:47 98 /min [facility] Body height 2022-11-13 21:48:00 188 cm [facility] Body weight 2022-11-13 21:48:00 97.523 kg [facility] BMI 2022-11-13 21:48:00 27.60 kg/m2 [facility] Systolic blood pressure 2022-11-06 15:55:00 120 mm[Hg] [facility] Diastolic blood pressure 2022-11-06 15:55:00 76 mm[Hg] [facility] Heart rate 2022-11-06 15:55:00 67 /min [facility] Body temperature 2022-11-06 15:55:00 36.5 Annabella [facility] Body height 2022-11-06 15:55:00 188 cm [facility] Body weight 2022-11-06 15:55:00 97.523 kg [facility] BMI 2022-11-06 15:55:00 27.60 kg/m2 [facility] Oxygen saturation in Arterial blood by Pulse oximetry 2022-11-06 15:55:00 100 /min [facility] Systolic blood pressure 2022-08-07 19:14:00 110 mm[Hg] [facility] Diastolic blood pressure 2022-08-07 19:14:00 71 mm[Hg] [facility] Heart rate 2022-08-07 19:14:00 77 /min [facility] Body temperature 2022-08-07 19:14:00 36.94 Annabella [facility] Body height 2022-08-07 19:14:00 188 cm [facility] Body weight 2022-08-07 19:14:00 97.523 kg [facility] BMI 2022-08-07 19:14:00 27.60 kg/m2 [facility] Oxygen saturation in Arterial blood by Pulse oximetry 2022-08-07 19:14:00 100 /min [facility] Systolic blood pressure 2021-01-07 18:03:00 159 mm[Hg] hysterically crying and moving [facility] Diastolic blood pressure 2021-01-07 18:03:00 128 mm[Hg] hysterically crying and moving [facility] Heart rate 2021-01-07 18:03:00 109 /min [facility] Body temperature 2021-01-07 18:03:00 37.72 Annabella [facility] Respiratory rate 2021-01-07 18:03:00 18 /min [facility] Body weight 2021-01-07 18:03:00 113.399 kg [facility] BMI 2021-01-07 18:03:00 32.10 kg/m2 [facility] Oxygen saturation in Arterial blood by Pulse oximetry 2021-01-07 18:03:00 100 /min [facility] Systolic blood pressure 2021-01-07 18:03:00 159 mm[Hg] hysterically crying and moving [facility] Diastolic blood pressure 2021-01-07 18:03:00 128 mm[Hg] hysterically crying and moving [facility] Heart rate 2021-01-07 18:03:00 109 /min [facility] Body temperature 2021-01-07 18:03:00 37.72 Annabella [facility] Respiratory rate 2021-01-07 18:03:00 18 /min [facility] Body weight 2021-01-07 18:03:00 113.399 kg [facility] BMI 2021-01-07 18:03:00 32.10 kg/m2 [facility] Oxygen saturation in Arterial blood by Pulse oximetry 2021-01-07 18:03:00 100 /min [facility] Systolic blood pressure 2020-12-28 19:00:00 129 mm[Hg] [facility] Diastolic blood pressure 2020-12-28 19:00:00 83 mm[Hg] [facility] Heart rate 2020-12-28 19:00:00 71 /min [facility] Respiratory rate 2020-12-28 19:00:00 16 /min [facility] Oxygen saturation in Arterial blood by Pulse oximetry 2020-12-28 19:00:00 100 /min [facility] Body temperature 2020-12-28 17:10:00 36.28 Annabella [facility] Body height 2020-12-28 17:10:00 188 cm [facility] Body weight 2020-12-28 17:10:00 113.399 kg [facility] BMI 2020-12-28 17:10:00 32.10 kg/m2 [facility] Systolic blood pressure 2020-12-28 19:00:00 129 mm[Hg] [facility] Diastolic blood pressure 2020-12-28 19:00:00 83 mm[Hg] [facility] Heart rate 2020-12-28 19:00:00 71 /min [facility] Respiratory rate 2020-12-28 19:00:00 16 /min [facility] Oxygen saturation in Arterial blood by Pulse oximetry 2020-12-28 19:00:00 100 /min [facility] Body temperature 2020-12-28 17:10:00 36.28 Annabella [facility] Body height 2020-12-28 17:10:00 188 cm [facility] Body weight 2020-12-28 17:10:00 113.399 kg [facility] BMI 2020-12-28 17:10:00 32.10 kg/m2 [facility] Systolic blood pressure 2020-12-10 20:25:00 123 mm[Hg] [facility] Diastolic blood pressure 2020-12-10 20:25:00 81 mm[Hg] [facility] Heart rate 2020-12-10 20:25:00 66 /min [facility] Respiratory rate 2020-12-10 20:25:00 14 /min [facility] Oxygen saturation in Arterial blood by Pulse oximetry 2020-12-10 20:25:00 99 /min [facility] Body temperature 2020-12-10 16:12:00 37.22 Annabella [facility] Body height 2020-12-10 15:41:00 188 cm [facility] Body weight 2020-12-10 15:41:00 99.474 kg [facility] BMI 2020-12-10 15:41:00 28.16 kg/m2 [facility] Systolic blood pressure 2020-12-10 20:25:00 123 mm[Hg] [facility] Diastolic blood pressure 2020-12-10 20:25:00 81 mm[Hg] [facility] Heart rate 2020-12-10 20:25:00 66 /min [facility] Respiratory rate 2020-12-10 20:25:00 14 /min [facility] Oxygen saturation in Arterial blood by Pulse oximetry 2020-12-10 20:25:00 99 /min [facility] Body temperature 2020-12-10 16:12:00 37.22 Annabella [facility] Body height 2020-12-10 15:41:00 188 cm [facility] Body weight 2020-12-10 15:41:00 99.474 kg [facility] BMI 2020-12-10 15:41:00 28.16 kg/m2 [facility] [facility] Systolic blood pressure 2020-11-21 13:01:00 159 mm[Hg] [facility] Diastolic blood pressure 2020-11-21 13:01:00 100 mm[Hg] [facility] Heart rate 2020-11-21 13:01:00 72 /min [facility] Body temperature 2020-11-21 13:01:00 36.61 Annabella [facility] Respiratory rate 2020-11-21 13:01:00 18 /min [facility] Body weight 2020-11-21 13:01:00 97.523 kg [facility] BMI 2020-11-21 13:01:00 27.60 kg/m2 [facility] Oxygen saturation in Arterial blood by Pulse oximetry 2020-11-21 13:01:00 100 /min [facility] Systolic blood pressure 2020-11-21 13:01:00 159 mm[Hg] [facility] Diastolic blood pressure 2020-11-21 13:01:00 100 mm[Hg] [facility] Heart rate 2020-11-21 13:01:00 72 /min [facility] Body temperature 2020-11-21 13:01:00 36.61 Annabella [facility] Respiratory rate 2020-11-21 13:01:00 18 /min [facility] Body weight 2020-11-21 13:01:00 97.523 kg [facility] BMI 2020-11-21 13:01:00 27.60 kg/m2 [facility] Oxygen saturation in Arterial blood by Pulse oximetry 2020-11-21 13:01:00 100 /min [facility] Procedures Procedure Date / Time Performed Performing Clinician Source POCT MOLECULAR FLU 2023-12-20 17:56:00 Unknown, Attend ing [facility] POCT SARS-COV-2 ANTIGEN (BINAX NOW) 2023-12-20 17:55:00 Kathy Lux [facility] POCT MOLECULAR STREP 2023-12-20 17:53:00 Unknown, Attkatherin ríos [facility] ASSIGNMENT OF BENEFITS 2023-08-22 15:32:30 Docto r Unassigned, [place] [facility] XR CHEST 2 VW 2023-08-12 22:55:39 Zohra Prater [facility] XR NECK SOFT TISSUE 2023-08-12 22:55:39 Adelia Prater [facility] ASSIGNMENT OF BENEFITS 2023-08-12 22:21:13 Docto r Unassigned, [place] [facility] CONSENT/REFUSAL FOR DIAGNOSIS AND TREATMENT 2023-08-12 21:44:30 Doctor Unassigned, [place] [facility] XR CERVICAL SPINE 2 VW 2023-07-05 15:20:41 Jessy son, Eddie Hernández [facility] MR SHOULDER LEFT WO CONTRAST 2023-06-04 17:59:00 Dharmesh Higgins [facility] CONSENT/REFUSAL FOR DIAGNOSIS AND TREATMENT 2023-05-25 19:24:17 Doctor Unassigned, [place] [facility] REFERRAL- REQUEST/RESPONSE 2023-05-16 06:01:00 Doctor Unassigned, [place] [facility] XR SHOULDER 2+ VW LEFT 2023-04-30 16:27:10 Kayla Begum [facility] VACCINATIONS - CONSENTS, ELIGIBILITY, HISTORY 2022-12-20 05:01:00 Doctor Unassigned, [place] [facility] COMP. METABOLIC PANEL ([id number]) 2022-12-11 23:36:00 Ivy Thakkar [facility] CBC WITH DIFF 2022-12-11 23:36:00 Ivy Thakkar [facility] URINALYSIS 2022-12-11 23:36:00 [facility]UG (IMMUNOASSAY) - COMPREHENSIVE DRUG SCREEN W/O REFLEX 2022-12-11 23:36:00 Ivy Thakkar [facility] US SCROTUM AND CONTENTS 2022-12-11 23:27:01 Ivy Thakkar [facility] CONSENT/REFUSAL FOR DIAGNOSIS AND TREATMENT 2022-12-11 21:59:16 Doctor Unassigned, [place] [facility] ASSIGNMENT OF BENEFITS 2022-12-08 21:05:34 Docto r Unassigned, [place] [facility] LIPASE 2022-12-08 20:59:00 Amarilis Banuelos [facility] MAGNESIUM 2022-12-08 20:59:00 Amarilis Banuelos [facility] TROPONIN I 2022-12-08 20:59:00 Amarilis Banuelos [facility] THYROID STIMULATING HORMONE 2022-12-08 20:59:00 Amarilis Banuelos [facility] COMP. METABOLIC PANEL ([id number]) 2022-12-08 20:59:00 Amarilis Banuelos [facility] CBC WITH DIFF 2022-12-08 20:59:00 Amarilis Banuelos [facility] D-DIMER 2022-12-08 20:59:00 Amarilis Banuelos [facility] URINALYSIS 2022-12-08 20:59:00 Amarilis Banuelos [facility] URINE DRUG (IMMUNOASSAY) - COMPREHENSIVE DRUG SCREEN W/O REFLEX 2022-12-08 20:59:00 Amarilis Banuelos [facility] CONSENT/REFUSAL FOR DIAGNOSIS AND TREATMENT 2022-12-08 20:14:46 Doctor Unassigned, [place] [facility] CT ABDOMEN PELVIS WO CONTRAST 2022-12-05 20:49:00 Kaedn Andrew [facility] ASSIGNMENT OF BENEFITS 2022-12-05 20:38:36 Docto r Unassigned, [place] [facility] EXTERNAL PROVIDER RECORDS 2022-11-27 05:01:00 Doctor Unassigned, [place] [facility] US TESTICULAR TORSION 2022-11-13 23:53:44 Gaurav Esparza [facility] ASSIGNMENT OF BENEFITS 2022-11-13 23:53:42 Docto r Unassigned, [place] [facility] BASIC METABOLIC PANEL (NA, K, CL, CO2, GLUCOSE, BUN, CREATININE, CA) 2022-11-13 23:02:00 Gaurav Esparza [facility] CBC WITH DIFF 2022-11-13 23:02:00 Gaurav Esparza [facility] URINALYSIS 2022-11-13 23:02:00 Gaurav Esparza [facility] NOTICE OF PRIVACY PRACTICES 2022-11-13 21:34:09 Doctor Unassigned, [place] [facility] CONSENT/REFUSAL FOR DIAGNOSIS AND TREATMENT 2022-11-13 21:33:31 Doctor Unassigned, [place] [facility] URINE CULTURE 2022-11-06 16:40:00 Alena Min [facility] POCT URINALYSIS 2022-11-06 16:30:00 [facility] AUTHORIZATION TO RELEASE PHI TO [facility] 2022-11-06 05:01:00 Doctor Unassigned, [place] [facility] CONSENT/REFUSAL FOR DIAGNOSIS AND TREATMENT 2021-01-07 17:59:07 Doctor Unassigned, [place] [facility] CT ABDOMEN PELVIS W CONTRAST 2020-12-28 18:45:34 Alvarez Archer [facility] LIPASE 2020-12-28 17:39:00 Alvarez Archer [facility] COMP. METABOLIC PANEL ([id number]) 2020-12-28 17:39:00 Alvarez Archer [facility] CBC WITH DIFF 2020-12-28 17:39:00 Alvarez Archer [facility] URINALYSIS 2020-12-28 17:39:00 Alvarez Archer [facility] CONSENT/REFUSAL FOR DIAGNOSIS AND TREATMENT 2020-12-28 16:58:57 Doctor Unassigned, [place] [facility] PROTHROMBIN TIME / INR 2020-12-10 15:10:00 Rashawn Berman [facility] ACTIVATED PARTIAL THRMPLAS JENNIFER 2020-12-10 15:10:00 Barrington Berman [facility] URINE DRUG (IMMUNOASSAY) - COMPREHENSIVE DRUG SCREEN 2020-12-10 13:45:00 Barrington Berman [facility] URINALYSIS 2020-12-10 13:45:00 Barrington [facility] COVID-19 (ID NOW RAPID TESTING) 2020-12-10 12:46:00 Barrington Berman [facility] SALICYLATE 2020-12-10 12:18:00 Barrington [facility]erman [facility] LACTIC ACID WHOLE BLOOD 2020-12-10 12:15:00 Do gladys Berman [facility] LIPASE 2020-12-10 12:13:00 Barrington Berman [facility] MAGNESIUM 2020-12-10 12:13:00 Barrington [facility]erman [facility] HEPATIC FUNCTION PANEL ([id number]) (ALB,T.PRO,BILI T,BU/BC,ALT,AST,ALK PHOS) 2020-12-10 12:13:00 Barrington Berman [facility] BASIC METABOLIC PANEL (NA, K, CL, CO2, GLUCOSE, BUN, CREATININE, CA) 2020-12-10 12:13:00 Barrington Berman [facility] ETHANOL 2020-12-10 12:13:00 Barrington [facility]erman [facility] CBC WITH DIFF 2020-12-10 12:13:00 Barrington Berman [facility] HB ECG ROUTINE & RHYTHM STRIP 2020-12-10 12:01:59 Barrington Berman [facility] CONSENT/REFUSAL FOR DIAGNOSIS AND TREATMENT 2020-12-10 11:46:13 Doctor Unassigned, [place] [facility] NOTICE OF PRIVACY PRACTICES 2020-11-21 12:58:09 Doctor Unassigned, [place] [facility] CONSENT/REFUSAL FOR DIAGNOSIS AND TREATMENT 2020-11-21 12:57:43 Doctor Unassigned, [place] [facility] Encounters Start Date/Time End Date/Time Encounter Type Admission Type Attending Clinicians Care Facility Care Department Encounter ID Source 2023-12-20 11:40:00 2023-12-20 13:33:48 Outpatient R GABY LUXBERLY [facility] [id number] [facility] 2023-12-20 11:40:00 2023-12-20 12:00:00 Urgent Care Kathy Lux Unknown, Attending [facility] 1..840.114 350.1.13.10 4.2.7.2.686 [id number] [facility] 2023-12-12 13:40:00 2023-12-12 13:40:00 Outpatient R KAYLA GRIMES [facility] [id number] [facility] 2023-12-05 00:00:00 2023-12-05 13:39:41 Telephone Kayla Grimes [facility] 1..840.114 350.1.13.10 4.2.7.2.686 [id number] [facility] 2023-11-01 15:15:00 2023-11-01 15:15:00 Outpatient R EDDIE DAVIS [facility] [id number] [facility] 2023-10-30 11:00:00 2023-10-30 11:00:00 Outpatient R KAYLA GRIMES [facility] [id number] [facility] 2023-10-30 00:00:00 2023-10-30 00:00:00 Telephone Nicole Wooten 1..840.114 350.1.13.10 4.2.7.2.686 [id number] [facility] 2023-10-23 00:00:00 2023-10-23 00:00:00 Pre Visit Outreach Alexandrea Barber 1.2.840.114 350.1.13.10 4.2.7.2.686 [id number] [facility] 2023-10-22 16:00:00 2023-10-22 16:00:00 Outpatient R HANNAHRADHAMES EDDIE [facility] [id number] [facility] 2023-10-09 00:00:00 2023-10-09 00:00:00 Kayla Aguilar [facility] 1.84.114 350.1.13.10 4.2.7.2.686 [id number] [facility] 2023-09-16 00:00:00 2023-09-16 00:00:00 Telephone Nicole Wooten 1.840.114 350.1.13.10 4.2.7.2.686 [id number] [facility] 2023-09-10 11:00:00 2023-09-10 11:00:00 Outpatient R [facility] [id number] [facility] 2023-09-10 00:00:00 2023-09-10 00:00:00 Case Management Sebastian Rea [facility] 1.84.114 350.1.13.10 4.2.7.2.686 [id number] [facility] 2023-09-05 00:00:00 2023-09-05 00:00:00 Telephone Nicole Wooten 1..114 350.1.13.10 4.2.7.2.686 [id number] [facility] 2023-09-03 15:15:00 2023-09-03 15:15:00 Outpatient R [facility] [id number] [facility] 2023-08-28 08:45:00 2023-08-28 08:45:00 Outpatient LORENA TERAN CRAIG [facility] [id number] [facility] 2023-08-28 00:00:00 2023-08-28 00:00:00 Telephone Nicole Wooten 1.2.840.114 350.1.13.10 4.2.7.2.686 [id number] [facility] 2023-08-26 00:00:00 2023-08-26 00:00:00 Telephone Nicole Wooten 1.2.840.114 350.1.13.10 4.2.7.2.686 [id number] [facility] 2023-08-23 00:00:00 2023-08-23 00:00:00 Telephone Nicole Wooten 1.2.840.114 350.1.13.10 4.2.7.2.686 [id number] [facility] 2023-08-22 08:45:00 2023-08-22 09:30:00 Ancillary Visit Sebastian Rea Jeremy Samuel [facility] 1.2840.114 350.1.13.10 4.2.7.2.686 [id number] [facility] 2023-08-22 00:00:00 2023-08-22 00:00:00 Orders Only Doctor Unassigned, [place] [facility] 1.2840.114 350.1.13.10 4.2.7.2.686 [id number] [facility] 2023-08-16 09:30:00 2023-08-16 10:15:00 Ancillary Visit Sebastian Rea Craig L [facility] 1.2840.114 350.1.13.10 4.2.7.2.686 [id number] [facility] 2023-08-12 15:58:00 2023-08-12 18:23:00 Emergency X ZOHRA PRATER [facility] ERT [id number] [facility] 2023-08-12 15:58:00 2023-08-12 18:23:00 Emergency Zohra Prater [facility] 1.2840.114 350.1.13.10 4.2.7.2.686 [id number] [facility] 2023-08-09 08:00:00 2023-08-09 09:22:33 Ancillary Visit Val Bell Craig L [facility] 1.20.114 350.1.13.10 4.2.7.2.686 [id number] [facility] 2023-08-09 00:00:00 2023-08-09 00:00:00 Telephone Nicole Wooten [place] 1.0.114 350.1.13.10 4.2.7.2.686 [id number] [facility] 2023-08-06 11:19:47 2023-08-06 11:19:47 Outpatient [facility] [id number] Marty Arriola Chava 2023-08-06 11:00:00 2023-08-06 11:00:00 Outpatient R KAYLA GRIMES [facility] [id number] [facility] 2023-08-02 08:45:00 2023-08-02 08:45:00 Outpatient R [facility] [id number] [facility] 2023-07-26 00:00:00 2023-07-26 00:00:00 Telephone Nicole WootenN [place] 1.0.114 350.1.13.10 4.2.7.2.686 [id number] [facility] 2023-07-25 13:40:52 2023-07-25 13:40:52 Outpatient [facility] [id number] Marty Larsen 2023-07-19 09:30:00 2023-07-19 09:30:00 Outpatient EDDIE MIRANDA [facility] [id number] [facility] 2023-07-12 10:23:23 2023-07-12 10:23:23 Outpatient [facility] [id number] Marty Larsen 2023-07-11 00:00:00 2023-07-11 00:00:00 Telephone Nicole Wooten 1.2.840.114 350.1.13.10 4.2.7.2.686 [id number] [facility] 2023-07-05 09:14:31 2023-07-05 23:59:00 Outpatient R EDDIE DAVIS [facility] [id number] [facility] 2023-07-05 09:14:31 2023-07-05 23:59:00 Hospital Encounter Eddie Davis [facility] 1.2840.114 350.1.13.10 4.2.7.2.686 [id number] [facility] 2023-07-05 09:30:00 2023-07-05 09:50:18 Office Visit Eddie Davis [facility] 1.2840.114 350.1.13.10 4.2.7.2.686 [id number] [facility] 2023-06-12 00:00:00 2023-06-12 00:00:00 Telephone Eddie Davis [facility] 1.2840.114 350.1.13.10 4.2.7.2.686 [id number] [facility] 2023-06-07 10:58:30 2023-06-07 10:58:[address] [facility] [id number] Marty Larsen 2023-06-06 14:15:00 2023-06-06 14:33:21 Outpatient R LORENA SAAVEDRA CRAIG [facility] [id number] [facility] 2023-06-06 14:15:00 2023-06-06 14:33:21 Office Visit Lorena Saavedra L [facility] 1..840.114 350.1.13.10 4.2.7.2.686 [id number] [facility] 2023-06-05 00:00:00 2023-06-05 00:00:00 Patient Secure Msg Doctor Unassigned, [place] [facility] 1.840.114 350.1.13.10 4.2.7.2.686 [id number] [facility] 2023-06-04 10:58:16 2023-06-04 23:59:00 Outpatient R DHARMESH HIGGINS [facility] [id number] [facility] 2023-06-04 10:58:16 2023-06-04 23:59:00 Hospital Encounter Dharmesh Higgins S [facility] 1.84.114 350.1.13.10 4.2.7.2.686 [id number] [facility] 2023-05-27 00:00:00 2023-05-27 00:00:00 Telephone Nicole Wooten 1.2.840.114 350.1.13.10 4.2.7.2.686 [id number] [facility] 2023-05-26 09:40:00 2023-05-26 09:40:00 Outpatient R [facility] [id number] [facility] 2023-05-25 13:37:00 2023-05-25 14:30:00 Emergency X GORDON NORWOOD [facility] ERT [id number] [facility] 2023-05-25 13:37:00 2023-05-25 14:30:00 Emergency Gordon Norwood E [facility] 1.2.840.114 350.1.13.10 4.2.7.2.686 [id number] [facility] 2023-05-24 15:40:00 2023-05-24 15:40:00 Outpatient KAYLA CLANCY [facility] [id number] [facility] 2023-05-22 00:00:00 2023-05-22 00:00:00 Telephone [facility] GI[facility]ANNY?[facility] 1.2.840.114 350.1.13.10 4.2.7.2.686 [id number] [facility] 2023-05-22 00:00:00 2023-05-22 00:00:00 Patient Secure Msg Doctor Unassigned, [place] [facility] 1.2.840.114 350.1.13.10 4.2.7.2.686 [id number] [facility] 2023-05-21 00:00:00 2023-05-21 00:00:00 Telephone Bebo Dharmesh [facility] GIOVANNY?[facility] 1.2.840.114 350.1.13.10 4.2.7.2.686 [id number] [facility] 2023-05-17 09:07:43 2023-05-17 09:07:43 Outpatient [facility] [id number] Marty Larsen 2023-05-17 00:00:00 2023-05-17 00:00:00 Telephone Nicole Wooten [place] 1.2840.114 350.1.13.10 4.2.7.2.686 [id number] [facility] 2023-05-16 09:30:00 2023-05-16 10:00:00 Office Visit Dharmesh Higgins [facility] 1.2840.114 350.1.13.10 4.2.7.2.686 [id number] [facility] 2023-05-16 09:30:00 2023-05-16 09:46:59 Outpatient R DHARMESH HIGGINS [facility] [id number] [facility] 2023-05-16 00:00:00 2023-05-16 00:00:00 Orders Only Doctor Unassigned, [place] [facility] 1.840.114 350.1.13.10 4.2.7.2.686 [id number] [facility] 2023-05-10 11:00:00 2023-05-10 11:00:00 Outpatient R DHARMESH HIGGINS [facility] [id number] [facility] 2023-05-03 11:23:35 2023-05-03 11:23:[address] [facility] [id number] Marty Arriola Chava 2023-05-01 00:00:00 2023-05-01 00:00:00 Telephone Nicole Wooten [place] 1.2840.114 350.1.13.10 4.2.7.2.686 [id number] [facility] 2023-05-01 00:00:00 2023-05-01 00:00:00 Telephone Nicole Wooten [place] 1.2840.114 350.1.13.10 4.2.7.2.686 [id number] [facility] 2023-05-01 00:00:00 2023-05-01 00:00:00 Telephone Nicole Wooten 1.2.840.114 350.1.13.10 4.2.7.2.686 [id number] [facility] 2023-04-30 11:15:20 2023-04-30 23:59:00 Outpatient R KAYLA GRIMES [facility] [id number] [facility] 2023-04-30 11:15:20 2023-04-30 23:59:00 Hospital Encounter Kayla Grimes [facility] 1.2.840.114 350.1.13.10 4.2.7.2.686 [id number] [facility] 2023-04-30 10:20:00 2023-04-30 11:39:43 Office Visit Sydney Kayla Geeta [facility] 1.2.840.114 350.1.13.10 4.2.7.2.686 [id number] [facility] 2023-04-30 11:14:49 2023-04-30 11:14:49 Hospital Encounter Kayla Grimes [facility] 1.2.840.114 350.1.13.10 4.2.7.2.686 [id number] [facility] 2023-04-30 08:58:42 2023-04-30 08:58:42 Outpatient [facility] [id number] Marty Arriola Chava 2023-04-28 17:00:00 2023-04-28 17:00:00 Outpatient R [facility] [id number] [facility] 2023-04-25 14:30:00 2023-04-25 14:30:00 Outpatient R [facility] [id number] [facility] 2023-04-24 00:00:00 2023-04-24 00:00:00 Telephone Tylor Newman [facility] 1.2840.114 350.1.13.10 4.2.7.2.686 [id number] [facility] 2023-04-24 00:00:00 2023-04-24 00:00:00 Telephone WootenRajwinder harrisonody Kvng [facility] GIM[facility] 1.2.840.114 350.1.13.10 4.2.7.2.686 [id number] [facility] 2023-04-23 15:40:00 2023-04-23 16:11:36 Outpatient R KAYLA GRIMES [facility] [id number] [facility] 2023-04-23 15:40:00 2023-04-23 16:11:36 Office Visit Kayla Grimes [facility] 1.840.114 350.1.13.10 4.2.7.2.686 [id number] [facility] 2023-04-17 00:00:00 2023-04-17 00:00:00 Telephone WootenNicole harrisonJosue [facility] 1.2840.114 350.1.13.10 4.2.7.2.686 [id number] [facility] 2023-04-16 13:21:44 2023-04-16 13:21:[address] [facility] [id number] Marty Arriola Chava 2023-04-16 00:00:00 2023-04-16 00:00:00 Refill Kayla Grimes [facility] 1.2840.114 350.1.13.10 4.2.7.2.686 [id number] [facility] 2023-04-16 00:00:00 2023-04-16 00:00:00 Refill Kayla Grimes [facility] 1.0.114 350.1.13.10 4.2.7.2.686 [id number] [facility] 2023-04-16 00:00:00 2023-04-16 00:00:00 Telephone Nicole Wooten [facility] [place] 1.0.114 350.1.13.10 4.2.7.2.686 [id number] [facility] 2023-04-12 11:00:00 2023-04-12 11:00:00 Outpatient KAYLA CLANCY [facility] [id number] [facility] 2023-04-10 13:40:00 2023-04-10 13:40:00 Outpatient R KAYLA GRIMES [facility] [id number] [facility] 2023-04-04 08:41:26 2023-04-04 08:41:26 Outpatient [facility] [id number] Marty Larsen 2023-03-13 08:40:00 2023-03-13 08:40:00 Outpatient R KAYLA GRIMES [facility] [id number] [facility] 2023-03-11 00:00:00 2023-03-11 00:00:00 Patient Secure Msg Kayla Grimes Geeta [facility] 1.84.114 350.1.13.10 4.2.7.2.686 [id number] [facility] 2023-03-11 00:00:00 2023-03-11 00:00:00 Tylor Camacho [facility] 1..114 350.1.13.10 4.2.7.2.686 [id number] [facility] 2023-03-07 08:47:58 2023-03-07 08:47:[address] [facility] [id number] Marty Larsen 2023-01-03 14:00:00 2023-01-03 14:52:06 Outpatient R [facility] [id number] [facility] 2023-01-03 14:00:00 2023-01-03 14:52:06 Office Visit Tylor Newman [facility] 1..840.114 350.1.13.10 4.2.7.2.686 [id number] [facility] 2023-01-02 13:00:00 2023-01-02 13:00:00 Outpatient R [facility] [id number] [facility] 2023-01-02 10:30:00 2023-01-02 10:30:00 Outpatient R [facility] [id number] [facility] 2022-12-31 00:00:00 2022-12-31 00:00:00 Refill Mechelle [facility] 1.2.840.114 350.1.13.10 4.2.7.2.686 [id number] [facility] 2022-12-30 00:00:00 2022-12-30 00:00:00 Refill [facility]echelle [facility] 1.2.840.114 350.1.13.10 4.2.7.2.686 [id number] [facility] 2022-12-28 12:45:00 2022-12-28 12:45:00 Outpatient R SULMA PEREZ [facility] [id number] [facility] 2022-12-26 11:20:00 2022-12-26 11:20:00 Outpatient R KAYLA GRIMES [facility] [id number] [facility] 2022-12-20 00:00:00 2022-12-20 00:00:00 Orders Only Doctor Unassigned, [place] [facility] 1.2840.114 350.1.13.10 4.2.7.2.686 [id number] [facility] 2022-12-17 00:00:00 2022-12-17 00:00:00 Patient Secure Msg Kayla Grimes [facility] [facility] 1.2840.114 350.1.13.10 4.2.7.2.686 [id number] [id number] [facility] 2022-12-17 00:00:00 2022-12-17 00:00:00 Patient Outreach Sheila Magallanes [facility] 1.2840.114 350.1.13.10 4.2.7.2.686 [id number] [id number] [facility] 2022-12-13 00:00:00 2022-12-13 00:00:00 Telephone Kayal Grimes [facility] 1.2840.114 350.1.13.10 4.2.7.2.686 [id number] [id number] [facility] 2022-12-12 15:20:00 2022-12-12 16:04:33 Outpatient R KAYLA GRIMES [facility] [id number] [facility] 2022-12-12 15:20:00 2022-12-12 16:04:33 Office Visit [facility] 1.2840.114 350.1.13.10 4.2.7.2.686 [id number] [id number] [facility] 2022-12-11 17:05:00 2022-12-11 20:26:00 Emergency X IVY THAKKAR [facility] ERT [id number] [facility] 2022-12-11 17:05:00 2022-12-11 20:26:00 Emergency Ivy Thakkar F [facility] 1.2840.114 350.1.13.10 4.2.7.2.686 [id number] [facility] 2022-12-11 09:30:00 2022-12-11 09:30:00 Outpatient R LORRIE [facility] [id number] [facility] 2022-12-08 15:30:00 2022-12-08 18:50:00 Emergency X AMARILIS BANUELOS [facility] ERT [id number] [facility] 2022-12-08 15:30:00 2022-12-08 18:50:00 Emergency Amarilis Banuelos G [facility] 1.2840.114 350.1.13.10 4.2.7.2.686 [id number] [facility] 2022-12-06 00:00:00 2022-12-06 00:00:00 Patient Secure Alena Long [facility] 1.840.114 350.1.13.10 4.2.7.2.686 [id number] [id number] [facility] 2022-12-06 00:00:00 2022-12-06 00:00:00 Telephone [facility] 1.20.114 350.1.13.10 4.2.7.2.686 [id number] [facility] 2022-12-05 15:30:00 2022-12-05 23:59:00 Hospital Encounter [facility] 1.2840.114 350.1.13.10 4.2.7.2.686 [id number] [facility] 2022-12-05 13:30:00 2022-12-05 15:18:12 Office Visit [facility] 1.2840.114 350.1.13.10 4.2.7.2.686 [id number] [facility] 2022-12-05 10:20:00 2022-12-05 10:20:00 Office Visit Kayla Grimes [facility] 1.20.114 350.1.13.10 4.2.7.2.686 [id number] [facility] 2022-12-05 10:20:00 2022-12-05 10:16:52 Outpatient R KAYLA GRIMES [facility] [id number] [facility] 2022-12-05 08:45:00 2022-12-05 08:45:00 Outpatient R PRIYANKA RIVERA [facility] [id number] [facility] 2022-12-05 00:00:00 2022-12-05 00:00:00 Orders Only Doctor Unassigned, [place] [facility] 1.840.114 350.1.13.10 4.2.7.2.686 [id number] [id number] [facility] 2022-12-04 00:00:00 2022-12-04 00:00:00 Telephone Jena Veloz 1.2840.114 350.1.13.10 4.2.7.2.686 [id number] [facility] 2022-11-27 15:30:00 2022-11-27 16:29:39 Outpatient R KADEN ANDREW [facility] [id number] [facility] 2022-11-27 00:00:00 2022-11-27 00:00:00 Orders Only Doctor Unassigned, [place] [facility] 1.20.114 350.1.13.10 4.2.7.2.686 [id number] [facility] 2022-11-21 00:00:00 2022-11-21 00:00:00 Patient Secure Msg Doctor Unassigned, [place] [facility] 1.20.114 350.1.13.10 4.2.7.2.686 [id number] [facility] 2022-11-20 08:00:00 2022-11-20 08:00:00 Outpatient BERNARDO ACE [facility] [id number] [facility] 2022-11-14 00:00:00 2022-11-14 00:00:00 Telephone Mechelle Alena [facility]ANINE [facility] 1.114 350.1.13.10 4.2.7.2.686 [id number] [facility] 2022-11-13 16:53:00 2022-11-13 20:55:00 Emergency X GAURAV ESPARZA [facility] ERT [id number] [facility] 2022-11-13 16:53:00 2022-11-13 20:55:00 Emergency Gaurav Esparza T [facility] 1..114 350.1.13.10 4.2.7.2.686 [id number] [facility] 2022-11-13 08:00:00 2022-11-13 08:15:00 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, Ash Min [facility] 1.840.114 350.1.13.10 4.2.7.2.686 [id number] [facility] 2022-11-13 08:00:00 2022-11-13 08:00:00 Outpatient R ALENA MIN [facility] [id number] [facility] 2022-11-13 00:00:00 2022-11-13 00:00:00 Telephone Alena Min [facility]?JEANINE [facility] 1.840114 350.1.13.10 4.2.7.2.686 [id number] [facility] 2022-11-12 12:00:00 2022-11-12 12:00:00 Outpatient R [facility] [id number] [facility] 2022-11-12 00:00:00 2022-11-12 00:00:00 Telephone Alena Min [facility]JEANINE [facility] 1.0114 350.1.13.10 4.2.7.2.686 [id number] [facility] 2022-11-12 00:00:00 2022-11-12 00:00:00 Telephone Alena Min [facility]?JEANINE [facility] 1.20.114 350.1.13.10 4.2.7.2.686 [id number] [facility] 2022-11-12 00:00:00 2022-11-12 00:00:00 Telephone Alena Min [facility]?JEANINE [facility] 1.0114 350.1.13.10 4.2.7.2.686 [id number] [facility] 2022-11-09 00:00:00 2022-11-09 00:00:00 Telephone Alena Min [facility]?JEANINE [facility] 1.840114 350.1.13.10 4.2.7.2.686 [id number] [facility] 2022-11-07 00:00:00 2022-11-07 00:00:00 Telephone BeataAlena calderon [facility]?JEANINE [facility] 1.2.840.114 350.1.13.10 4.2.7.2.686 [id number] [facility] 2022-11-06 11:00:00 2022-11-06 12:34:42 Outpatient R ALENA MIN [facility] [id number] [facility] 2022-11-06 11:00:00 2022-11-06 12:34:42 Office Visit [facility]Alena [facility]deron [facility] 1.2.840.114 350.1.13.10 4.2.7.2.686 [id number] [facility] 2022-11-06 00:00:00 2022-11-06 00:00:00 Orders Only Doctor Unassigned, [place] [facility] 1..840.114 350.1.13.10 4.2.7.2.686 [id number] [facility] 2022-11-02 15:30:00 2022-11-02 15:30:00 Outpatient R ALENA MIN [facility] [id number] [facility] 2022-10-22 00:00:00 2022-10-22 00:00:00 Telephone BeataAlena calderon [facility] 1.2.840.114 350.1.13.10 4.2.7.2.686 [id number] [facility] 2022-08-21 09:30:00 2022-08-21 09:30:00 Outpatient R ALENA MIN [facility] [id number] [facility] 2022-08-07 13:00:00 2022-08-07 13:48:52 Outpatient R ALENA MIN [facility] [id number] [facility] 2022-08-07 13:00:00 2022-08-07 13:48:52 Office Visit Alena Min [facility] 1.2.840.114 350.1.13.10 4.2.7.2.686 [id number] [facility] 2022-08-07 00:00:00 2022-08-07 00:00:00 Telephone Alena Min [facility] 1.2.840.114 350.1.13.10 4.2.7.2.686 [id number] [id number] [facility] 2021-01-07 13:07:00 2021-01-07 13:25:00 Emergency Thi Trent [facility] 1.2.840.114 350.1.13.10 4.2.7.2.686 [id number] 2021-01-07 13:07:00 2021-01-07 13:25:00 Emergency Thi Trent [facility] 1.2.840.114 350.1.13.10 4.2.7.2.686 [id number] [facility] 2021-01-07 12:59:00 2021-01-07 12:59:00 Emergency X [facility] ERT [id number] [facility] 2021-01-07 00:00:00 2021-01-07 00:00:00 Orders Only Doctor Unassigned, [place] [facility] 1.2.840.114 350.1.13.10 4.2.7.2.686 [id number] 2021-01-07 00:00:00 2021-01-07 00:00:00 Orders Only Doctor Unassigned, [place] [facility] 1.2.840.114 350.1.13.10 4.2.7.2.686 [id number] [facility] 2020-12-28 12:12:00 2020-12-28 14:45:00 Emergency Alvarez Archer [facility] 1.2.840.114 350.1.13.10 4.2.7.2.686 [id number] 2020-12-28 12:12:00 2020-12-28 14:45:00 Emergency Alvarez Archer [facility] 1.2.840.114 350.1.13.10 4.2.7.2.686 [id number] [facility] 2020-12-28 11:59:00 2020-12-28 11:59:00 Emergency X [facility] ERT [id number] [facility] 2020-12-10 06:50:00 2020-12-10 15:30:00 Emergency Rashawn Bermanshayy Amadorvictorino [facility] 1.2.840.114 350.1.13.10 4.2.7.2.686 [id number] 2020-12-10 06:50:00 2020-12-10 15:30:00 Emergency [facility] 1.2.840.114 350.1.13.10 4.2.7.2.686 [id number] [facility] 2020-12-10 06:47:00 2020-12-10 06:47:00 Emergency X [facility] ERT [id number] [facility] 2020-12-10 00:00:00 2020-12-10 00:00:00 Orders Only Doctor Unassigned, [place] [facility] 1.2.840.114 350.1.13.10 4.2.7.2.686 [id number] 2020-12-10 00:00:00 2020-12-10 00:00:00 Orders Only Doctor Unassigned, [place] [facility] 1.2.840.114 350.1.13.10 4.2.7.2.686 [id number] [facility] 2020-11-21 08:03:00 2020-11-21 08:39:00 Emergency Daljit Velasco [facility] 1.2.840.114 350.1.13.10 4.2.7.2.686 [id number] 2020-11-21 08:03:00 2020-11-21 08:39:00 Emergency Velasco [facility] 1.2.840.114 350.1.13.10 4.2.7.2.686 [id number] [facility] 2020-11-21 08:03:00 2020-11-21 08:03:00 Emergency X DALJIT VELASCO [facility] ERT [id number] [facility] Results Test Description Test Time Test Comments Results Result Co mments Source [facility] Molecular [id number] 18:07:45* Test Item Value Reference Range Interpretation Comme nts POCT Molecular FluA (test co de = 61216-9) Negative Negative POCT Molecular FluB (test co de = 80950-8) Negative Negative Lab Interpretation (test cod e = 30806-2) Normal [facility] MOLECULAR [id number] 18:00:56* Test Item Value Reference Range Interpretation Comme nts POCT Molecular Strep (test c ode = 75125-8) Negative Negative Lab Interpretation (test cod e = 34327-3) [facility] [id number] 23:40:20ORDERING PHYSICIAN: ZOHRA PRATER HISTORY: 28 years old, Male, foreign body sensation in throat after taking3 pills , feeling of something stuck in throat TECHNIQUE: XR NECK SOFT TISSUE COMPARISON: none FINDINGS: Prevertebral soft tissues are normal. No radiopaque foreign bodyidentified. Bones appear intact.[facility] 2 [id number] 23:03:32EXAM: XR CHEST 2 VW COMPARISON: 12/08/2022 HISTORY: foreign body senation in throat , s/p swallowing p ills without anyliquidsUnHunt [facility] GreenvilleXR CERVICAL SPINE 2 VW 2023-07-05 16:43:54EXAM: XR CERVICAL SPINE 2 VW HISTORY: neck pain COMPARISON: Cervical spine radiograph dated 03/24/2015UnH[facility] GreenvilleCOMP. METABOLIC PANEL ([id number])2022-12-12 00:37:54* Test Item Value Reference Range Interpretation Comme nts NA (test code = 3904191907) 142 mmol/L 135-145 K (test code = 6167159380) 4.1 mmol/L 3.5-5.0 CL (test code = 9619096000) 105 mmol/L 98-108 CO2 TOTAL (test code = 6014910198) 26 mmol/L 23-31 AGAP (test code = 8777148597) 11 2-16 BUN (test code = 7870968857) 15 mg/dL 7-23 GLUCOSE (test code = 7319482228) 97 mg/dL 70-110 CREATININE (test code = 9057868125) 1.03 mg/dL 0.60-1.25 TOTAL BILI (test code = 1880845848) 0.7 mg/dL 0.1-1.1 CALCIUM (test code = 8460327170) 10.0 mg/dL 8.6-10.6 T PROTEIN (test code = 5062465785) 8.3 g/dL 6.3-8.2 H ALBUMIN (test code = 1015939231) 5.1 g/dL 3.5-5.0 H ALK PHOS (test code = 0521766684) 66 U/L 34-122 ALTv (test code = 1742-6) 44 U/L 5-50 AST(SGOT) (test code = 8902844392) 30 U/L 13-40 eGFR (test code = 4548835684) 85.4 mL/min/1.73m2 DESIREE (test code = DESIREE) Association of [...] or abnormalities in imaging tests). Lab Interpretation (test code = 85985-3) Abnormal [facility] WITH [id number] 00:12:33* Test Item Value Reference Range Interpretation Comme nts WBC (test code = 6690-2) 7.70 See_Comment [Automated Igneous Systems] The system which generated this result transmitted reference range: 4.20 - 10.70 10*3/?L. The reference range was not used to interpret this result as normal/abnormal. RBC (test code = 789-8) 5.28 See_Comment [Automated [employer] Systems] The system which generated this result transmitted reference range: 4.26 - 5.52 10*6/?L. The reference range was not used to interpret this result as normal/abnormal. HGB (test code = 718-7) 16.2 g/dL 12.2-16.4 HCT (test code = 4544-3) 45.9 % 38.4-49.3 MCV (test code = 787-2) 86.9 fL 81.7-95.6 MCH (test code = 785-6) 30.7 pg 26.1-32.7 MCHC (test code = 786-4) 35.3 g/dL 31.2-35.0 H RDW-SD (test code = 40812-5) 38.6 fL 38.5-51.6 RDW-CV (test code = 788-0) 12.0 % 12.1-15.4 L PLT (test code = 777-3) 328 See_Comment [Automated messa ge] The system which generated this result transmitted reference range: 150 - 328 10*3/?L. The reference range was not used to interpret this result as normal/abnormal. MPV (test code = 57433-7) 9.4 fL 9.8-13.0 L NRBC/100 WBC (test code = 9136212979) 0.0 See_Comment [Automated Bleachers ssage] The system which generated this result transmitted reference range: 0.0 - 10.0 /100 WBCs. The reference range was not used to interpret this result as normal/abnormal. NRBC x10^3 (test code = 3025623892) See_Comment [Automated messa ge] The system which generated this result transmitted reference range: 10*3/?L. The reference range was not used to interpret this result as normal/abnormal. GRAN MAT (NEUT) % (test code = 770-8) 69.1 % IMM GRAN % (test code = 2841059745) 0.30 % LYMPH % (test code = 736-9) 23.8 % MONO % (test code = 5905-5) 5.8 % EOS % (test code = 713-8) 0.5 % BASO % (test code = 706-2) 0.5 % GRAN MAT x10^3(ANC) (test code = 3123607253) 5.32 10*3/uL 1.99-6.95 IMM GRAN x10^3 (test code = 1917357646) 0.00-0.06 LYMPH x10^3 (test code = 731-0) 1.83 10*3/uL 1.09-3.23 MONO x10^3 (test code = 742-7) 0.45 10*3/uL 0.36-1.02 EOS x10^3 (test code = 711-2) 0.04 10*3/uL 0.06-0.53 L BASO x10^3 (test code = 704-7) 0.04 10*3/uL 0.01-0.09 Lab Interpretation (test code = 94810-3) Abnormal [facility] Center[facility] STIMULATING [id number] 22:27:19 * Test Item Value Reference Range Interpretation Comme nts TSH (test code = 6562964317) 1.74 See_Comment [Automated messa ge] The system which generated this result transmitted reference range: 0.45 - 4.70 mIU/L. The reference range was not used to interpret this result as normal/abnormal. Lab Interpretation (test code = 48024-7) Normal [facility] CenterTROPONIN [id number] 22:08:38* Test Item Value Reference Range Interpretation Comme nts TROPONIN I (test code = 0152338344) 0.004 ng/mL <=0.034 DESIREE (test code = DESIREE) Reference (Normal) Range (defined by the 99th percentile reference limit): <= 0.034 ng/mL Note: Cardiac troponin begins to rise 3-4 hours after the onset of ischemia. Repeat in 4-6 hours if the sample was drawn within 3-4 hours of the onset of the symptom and found normal. Diagnosis of myocardial injury is made with acute changes in cTn concentrations with at least one serial sample above the 99th percentile upper reference limit (URL), taken together with the patient's clinical presentation. Biotin has been reported to cause a negative bias, interpret results relative to patient's use of biotin. Lab Interpretation (test code = 85432-2) Normal [facility] CenterLIPASE2023-06-03 22:05:21* Test Item Value Reference Range Interpretation Comme nts LIPASE (test code = 0921264702) 213 U/L 0-220 Lab Interpretation (test cod e = 71556-1) Normal [facility] Center[facility]NESIUM2023-06-03 22:05:16* Test Item Value Reference Range Interpretation Comme nts MAGNESIUM (test code = 2873594446) 1.7 mg/dL 1.7-2.4 Lab Interpretation (test cod e = 89444-6) Normal [facility] Center[facility]. METABOLIC PANEL (69636)2022-12-08 22:05:06* Test Item Value Reference Range Interpretation Comme nts NA (test code = 6409949576) 140 mmol/L 135-145 K (test code = 3117915238) 3.9 mmol/L 3.5-5.0 CL (test code = 2508491537) 105 mmol/L 98-108 CO2 TOTAL (test code = 2465206783) 26 mmol/L 23-31 AGAP (test code = 2093056432) 9 2-16 BUN (test code = 3613239185) 14 mg/dL 7-23 GLUCOSE (test code = 3723397151) 96 mg/dL 70-110 CREATININE (test code = 5258236057) 0.90 mg/dL 0.60-1.25 TOTAL BILI (test code = 0875393560) 0.8 mg/dL 0.1-1.1 CALCIUM (test code = 6446104767) 9.8 mg/dL 8.6-10.6 T PROTEIN (test code = 9154172588) 7.9 g/dL 6.3-8.2 ALBUMIN (test code = 7435641629) 4.9 g/dL 3.5-5.0 ALK PHOS (test code = 5650948147) 61 U/L 34-122 ALTv (test code = 1742-6) 39 U/L 5-50 AST(SGOT) (test code = 6378644760) 30 U/L 13-40 eGFR (test code = 3315288831) 99.8 mL/min/1.73m2 DESIREE (test code = DESIREE) Association of [...] or urine or abnormalities in imaging tests). [facility] CenterD-XAOHR5036-83-01 21:41:43* Test Item Value Reference Range Interpretation Comments D-DIMER (test code = 5265137161) See_Comment [Automated message] The system which generated this result transmitted reference range: <0.41 ?g/mL (FEU). The reference range was not used to interpret this result as normal/abnormal. DESIREE (test code = DESIREE) This test may be used in conjunction with a clinical pretest probability (PTP) assessment model to exclude venous thromboembolism (VTE) in patients suspected of deep venous thrombosis (DVT) and pulmonary embolism (PE) A D-Dimer value less than 0.50 ?g/ml (FEU) has a negative predicative value of 96 to 100% (95% CI)and 97 to 100% (95% CI) as an aid in the diagnosis of deep vein thrombosis (DVT) and pulmonary embolism when there is low or moderate pretest probability of PE or DVT. D-Dimer values are expressed in initial fibrinogen equivalent units (FEU)" The assay results should be used with other information, including the clinical context, in forming a diagnosis. Lab Interpretation (test code = 87948-3) Normal [facility] WITH [id number] 21:26:36* Test Item Value Reference Range Interpretation Comme nts WBC (test code = 6690-2) 6.69 See_Comment [Automated Igneous Systems] The system which generated this result transmitted reference range: 4.20 - 10.70 10*3/?L. The reference range was not used to interpret this result as normal/abnormal. RBC (test code = 789-8) 5.24 See_Comment [Automated Altia Systemsa ge] The system which generated this result transmitted reference range: 4.26 - 5.52 10*6/?L. The reference range was not used to interpret this result as normal/abnormal. HGB (test code = 718-7) 16.2 g/dL 12.2-16.4 HCT (test code = 4544-3) 45.6 % 38.4-49.3 MCV (test code = 787-2) 87.0 fL 81.7-95.6 MCH (test code = 785-6) 30.9 pg 26.1-32.7 MCHC (test code = 786-4) 35.5 g/dL 31.2-35.0 H RDW-SD (test code = 21468-5) 38.9 fL 38.5-51.6 RDW-CV (test code = 788-0) 12.1 % 12.1-15.4 PLT (test code = 777-3) 325 See_Comment [Automated Altia Systemsa ge] The system which generated this result transmitted reference range: 150 - 328 10*3/?L. The reference range was not used to interpret this result as normal/abnormal. MPV (test code = 04321-9) 9.4 fL 9.8-13.0 L NRBC/100 WBC (test code = 7662855384) 0.0 See_Comment [Automated Bleachers ssage] The system which generated this result transmitted reference range: 0.0 - 10.0 /100 WBCs. The reference range was not used to interpret this result as normal/abnormal. NRBC x10^3 (test code = 2386368506) See_Comment [Automated Altia Systemsa ge] The system which generated this result transmitted reference range: 10*3/?L. The reference range was not used to interpret this result as normal/abnormal. GRAN MAT (NEUT) % (test code = 770-8) 57.8 % IMM GRAN % (test code = 7957286274) 0.30 % LYMPH % (test code = 736-9) 33.8 % MONO % (test code = 5905-5) 6.9 % EOS % (test code = 713-8) 0.6 % BASO % (test code = 706-2) 0.6 % GRAN MAT x10^3(ANC) (test code = 9900370492) 3.87 10*3/uL 1.99-6.95 IMM GRAN x10^3 (test code = 3310670616) 0.00-0.06 LYMPH x10^3 (test code = 731-0) 2.26 10*3/uL 1.09-3.23 MONO x10^3 (test code = 742-7) 0.46 10*3/uL 0.36-1.02 EOS x10^3 (test code = 711-2) 0.04 10*3/uL 0.06-0.53 L BASO x10^3 (test code = 704-7) 0.04 10*3/uL 0.01-0.09 Lab Interpretation (test code = 06134-0) Abnormal [facility] METABOLIC PANEL (NA, K, CL, CO2, GLUCOSE, BUN, CREATININE, CA)2022-11-13 23:40:36* Test Item Value Reference Range Interpretation Comme nts NA (test code = 3884570783) 140 mmol/L 135-145 K (test code = 0879593120) 4.1 mmol/L 3.5-5.0 CL (test code = 9166677231) 103 mmol/L 98-108 CO2 TOTAL (test code = 7395026972) 26 mmol/L 23-31 AGAP (test code = 2348547063) 11 2-16 BUN (test code = 5061236823) 14 mg/dL 7-23 GLUCOSE (test code = 3046045150) 106 mg/dL 70-110 CREATININE (test code = 7581767289) 0.89 mg/dL 0.60-1.25 CALCIUM (test code = 8695699928) 9.7 mg/dL 8.6-10.6 eGFR (test code = 6629797867) 101.1 mL/min/1.73m2 DESIREE (test code = DESIREE) Association of [...] or urine or abnormalities in imaging tests). [facility] WITH [id number] 23:33:18* Test Item Value Reference Range Interpretation Comme nts WBC (test code = 6690-2) 9.32 See_Comment [[employer]] The system which generated this result transmitted reference range: 4.20 - 10.70 10*3/?L. The reference range was not used to interpret this result as normal/abnormal. RBC (test code = 789-8) 5.42 See_Comment [[employer]] The system which generated this result transmitted reference range: 4.26 - 5.52 10*6/?L. The reference range was not used to interpret this result as normal/abnormal. HGB (test code = 718-7) 16.2 g/dL 12.2-16.4 HCT (test code = 4544-3) 46.3 % 38.4-49.3 MCV (test code = 787-2) 85.4 fL 81.7-95.6 MCH (test code = 785-6) 29.9 pg 26.1-32.7 MCHC (test code = 786-4) 35.0 g/dL 31.2-35.0 RDW-SD (test code = 68758-2) 37.6 fL 38.5-51.6 L RDW-CV (test code = 788-0) 12.2 % 12.1-15.4 PLT (test code = 777-3) 314 See_Comment [Automated messa ge] The system which generated this result transmitted reference range: 150 - 328 10*3/?L. The reference range was not used to interpret this result as normal/abnormal. MPV (test code = 60176-7) 9.6 fL 9.8-13.0 L NRBC/100 WBC (test code = 9192441543) 0.0 See_Comment [Automated me ssage] The system which generated this result transmitted reference range: 0.0 - 10.0 /100 WBCs. The reference range was not used to interpret this result as normal/abnormal. NRBC x10^3 (test code = 1187911589) See_Comment [Automated messa ge] The system which generated this result transmitted reference range: 10*3/?L. The reference range was not used to interpret this result as normal/abnormal. GRAN MAT (NEUT) % (test code = 770-8) 74.5 % IMM GRAN % (test code = 2740003706) 0.10 % LYMPH % (test code = 736-9) 18.1 % MONO % (test code = 5905-5) 6.5 % EOS % (test code = 713-8) 0.3 % BASO % (test code = 706-2) 0.5 % GRAN MAT x10^3(ANC) (test code = 3786377897) 6.93 10*3/uL 1.99-6.95 IMM GRAN x10^3 (test code = 7693391843) 0.00-0.06 LYMPH x10^3 (test code = 731-0) 1.69 10*3/uL 1.09-3.23 MONO x10^3 (test code = 742-7) 0.61 10*3/uL 0.36-1.02 EOS x10^3 (test code = 711-2) 0.03 10*3/uL 0.06-0.53 L BASO x10^3 (test code = 704-7) 0.05 10*3/uL 0.01-0.09 Lab Interpretation (test code = 17394-2) Abnormal [facility] URINALYSIS W SPECIFIC [id number] 16:30:00* Test Item Value Reference Range Interpretation Comme nts POCT U SP GRAV (test code = 3255) 1.000 mg/dl 1.005-1.025 HH POCT PH U (test code = 3254) 7 mg/dl 5-8 POCT U LEUK EST (test code = 3263) NEG Negative - Negative POCT U NIT (test code = 3262) NEG Negative - Negative POCT U PROT (test code = 3259) NEG Negative - Negative POCT U GLU (test code = 3256) NEG Negative - Negative POCT U KETONE (test code = 3258) NEG Negative - Negative POCT U UROBILI (test code = 3260) NEG 0.2-1 POCT U BILI (test code = 3261) NEG Negative - Negative POCT U BLD (test code = 3257) NEG Negative - Negative POCT U COLOR (test code = 3266) LIGHT YELLOW POCT U APPEAR (test code = 3267) CLEAR Lab Interpretation (test code = 30357-5) Abnormal [facility] URINALYSIS W SPECIFIC [id number] 16:30:00* Test Item Value Reference Range Interpretation Comme nts POCT U SP GRAV (test code = 3255) 1.000 mg/dl 1.005-1.025 HH POCT PH U (test code = 3254) 7 mg/dl 5-8 POCT U LEUK EST (test code = 3263) NEG Negative - Negative POCT U NIT (test code = 3262) NEG Negative - Negative POCT U PROT (test code = 3259) NEG Negative - Negative POCT U GLU (test code = 3256) NEG Negative - Negative POCT U KETONE (test code = 3258) NEG Negative - Negative POCT U UROBILI (test code = 3260) NEG 0.2-1 POCT U BILI (test code = 3261) NEG Negative - Negative POCT U BLD (test code = 3257) NEG Negative - Negative POCT U COLOR (test code = 3266) LIGHT YELLOW POCT U APPEAR (test code = 3267) CLEAR Lab Interpretation (test code = 86921-6) Abnormal [facility] URINALYSIS W SPECIFIC MUZETGK2398-76-26 16:30:00* Test Item Value Reference Range Interpretation Comme nts POCT U SP GRAV (test code = 3255) 1.000 mg/dl 1.005-1.025 HH POCT PH U (test code = 3254) 7 mg/dl 5-8 POCT U LEUK EST (test code = 3263) NEG Negative - Negative POCT U NIT (test code = 3262) NEG Negative - Negative POCT U PROT (test code = 3259) NEG Negative - Negative POCT U GLU (test code = 3256) NEG Negative - Negative POCT U KETONE (test code = 3258) NEG Negative - Negative POCT U UROBILI (test code = 3260) NEG 0.2-1 POCT U BILI (test code = 3261) NEG Negative - Negative POCT U BLD (test code = 3257) NEG Negative - Negative POCT U COLOR (test code = 3266) LIGHT YELLOW POCT U APPEAR (test code = 3267) CLEAR Lab Interpretation (test code = 42078-2) [facility]normal [facility] [id number] 18:54:58CT Abdomen and Pelvis with intravenous contrast. CLINICAL HISTORY: Abdominal abscess/infection. DOSE: Up-to-date CT equipment and radiation dose reduction [...] Peritoneum: ?No free air or free fluid. Scatteredlymph nodes are seenthroughout small bowel mesentery extending toward right lower quadrant ofthe abdomen. Pancreas and Adrenals: ?Unremarkable pancreas and adrenal glands. Kidneys and Ureters: ?No visible calculi in the renal collecting systems. No hydroureter or hydronephrosis. No enhancing kidneylesions detected. Vessels: Normal. Retroperitoneum: No abnormal fluid [...] CTDIvol: 8.13 mGy. DLP: 450 mGy-cm.TECHNIQUE : Arun guous axial imaging from the level of the lung basesthrough the pubic symphysis were performed after the uncomplicatedadministration of nonionic contrast material. Coronal and sagittalreconstructionswere obtained. Auto mA and/or iterative reconstruction wereused to reduce radiation dose.FINDINGS: Lower lungs: Clear. No pleural effusion or pericardial effusion.Liver, Gallbladder and Spleen: Liveris 15.9 cm in length and spleenmeasures approximately 12.2 x 4.4 cm. No focal lesions visualized intheliver or in the spleen. No calcified gallstones. [...] Smallhemangioma noted in T11 vertebral body.Soft tissues: Unremarkabl e.CONCLUSION: Mesenteric adenitis is noted, otherwise no acuteintra-abdominal or pelvic abnormalities.[facility] 18:02:33* Test Item Value Reference Range Interpretation Comme nts APPEARANCE (test code = 8317785169) Clear Clear COLOR (test code = 9710901224) Yellow Yellow PH (test code = 3528913165) 4.8-8.0 SP GRAVITY (test code = 1937504338) 1.003-1.030 GLU U QUAL (test code = 6321344928) Normal Normal BLOOD (test code = 6593723499) Negative Negative KETONES (test code = 5755185571) Negative Negative PROTEIN (test code = 2887-8) Negative Negative UROBILIN (test code = 3388102036) Normal Normal BILIRUBIN (test code = 9862531487) Negative Negative NITRITE (test code = 9157532173) Negative Negative LEUK MITALI (test code = 8620441814) Negative Negative RBC/HPF (test code = 4429117666) See_Comment [Automated [employer] ge] The system which generated this result transmitted reference range: 0 - 3 HPF. The reference range was not used to interpret this result as normal/abnormal. WBC/HPF (test code = 2347852548) See_Comment [Automated [employer] ge] The system which generated this result transmitted reference range: 0 - 5 HPF. The reference range was not used to interpret this result as normal/abnormal. BACTERIA (test code = 2033321055) Negative Negative MUCOUS (test code = 4459856221) Slight Negative LPF A Lab Interpretation (test code = 20140-8) Abnormal [facility]. METABOLIC PANEL (75880)2020-12-28 17:57:13* Test Item Value Reference Range Interpretation Comme nts NA (test code = 8037408823) 142 mmol/L 135-145 K (test code = 9674451949) 4.5 mmol/L 3.5-5.0 CL (test code = 6362852394) 104 mmol/L 98-108 CO2 TOTAL (test code = 5701119177) 29 mmol/L 23-31 AGAP (test code = 3171480304) 2-16 BUN (test code = 9234188997) 13 mg/dL 7-23 GLUCOSE (test code = 5140272786) 101 mg/dL 70-110 CREATININE (test code = 9751162025) 0.92 mg/dL 0.60-1.25 TOTAL BILI (test code = 1010396312) 0.5 mg/dL 0.1-1.1 CALCIUM (test code = 4585643508) 9.9 mg/dL 8.6-10.6 T PROTEIN (test code = 4829011579) 8.0 g/dL 6.3-8.2 ALBUMIN (test code = 8697691944) 4.8 g/dL 3.5-5.0 ALK PHOS (test code = 7750362236) 61 U/L 34-122 ALTv (test code = 1742-6) 47 U/L 5-50 AST(SGOT) (test code = 8830280012) 37 U/L 13-40 eGFR (test code = 4442116131) mL/min/1.73m2 DESIREE (test code = DESIREE) Association of [...] or urine or abnormalities in imaging tests). [facility] 17:56:33* Test Item Value Reference Range Interpretation Comme nts LIPASE (test code = 3400586696) 328 U/L 0-220 H Lab Interpretation (test cod e = 77192-1) Abnormal [facility] CenterCBC WITH LYUW8772-30-17 17:51:55* Test Item Value Reference Range Interpretation Comme nts WBC (test code = 6690-2) See_Comment [Automated [employer])] The system which generated this result transmitted reference range: 4.20 - 10.70 10*3/?L. The reference range was not used to interpret this result as normal/abnormal. RBC (test code = 789-8) See_Comment [Automated [employer] ge] The system which generated this result transmitted reference range: 4.26 - 5.52 10*6/?L. The reference range was not used to interpret this result as normal/abnormal. HGB (test code = 718-7) 15.9 g/dL 12.2-16.4 HCT (test code = 4544-3) 46.4 % 38.4-49.3 MCV (test code = 787-2) 87.1 fL 81.7-95.6 MCH (test code = 785-6) 29.8 pg 26.1-32.7 MCHC (test code = 786-4) 34.3 g/dL 31.2-35.0 RDW-SD (test code = 16963-9) 38.7 fL 38.5-51.6 RDW-CV (test code = 788-0) 12.2 % 12.1-15.4 PLT (test code = 777-3) See_Comment [Automated [employer] ge] The system which generated this result transmitted reference range: 150 - 328 10*3/?L. The reference range was not used to interpret this result as normal/abnormal. MPV (test code = 81415-0) 9.3 fL 9.8-13.0 L NRBC/100 WBC (test code = 2867964110) See_Comment [Automated me ssage] The system which generated this result transmitted reference range: 0.0 - 10.0 /100 WBCs. The reference range was not used to interpret this result as normal/abnormal. NRBC x10^3 (test code = 4370421462) <0.01 See_Comment [Automated messa ge] The system which generated this result transmitted reference range: 10*3/?L. The reference range was not used to interpret this result as normal/abnormal. GRAN MAT (NEUT) % (test code = 770-8) 53.5 % IMM GRAN % (test code = 0240223117) 0.20 % LYMPH % (test code = 736-9) 34.2 % MONO % (test code = 5905-5) 9.6 % EOS % (test code = 713-8) 2.1 % BASO % (test code = 706-2) 0.4 % GRAN MAT x10^3(ANC) (test code = 6179574285) 2.56 10*3/uL 1.99-6.95 IMM GRAN x10^3 (test code = 0502961601) <0.03 0.00-0.06 LYMPH x10^3 (test code = 731-0) 1.64 10*3/uL 1.09-3.23 MONO x10^3 (test code = 742-7) 0.46 10*3/uL 0.36-1.02 EOS x10^3 (test code = 711-2) 0.10 10*3/uL 0.06-0.53 BASO x10^3 (test code = 704-7) <0.03 0.01-0.09 Lab Interpretation (test code = 58075-2) Abnormal [facility]eraPTT[facility] 15:42:57* Test Item Value Reference Range Interpretation Comme nts APTT Patient (test code = 3173-2) See_Comment [Automated message] The system which generated this result transmitted reference range: 23 - 38 Seconds. The reference range was not used to interpret this result as normal/abnormal. DESIREE (test code = DESIREE) The [facility] patient population mean normal value for aPTT is 30 seconds. Lab Interpretation (test code = 27006-8) Normal [facility] CenterProthrombin Time (PT) / DRD5450-09-81 15:40:16 * Test Item Value Reference Range Interpretation Comme nts PROTIME PATIENT (test code = 5964-2) See_Comment [Automated [employer]] The system which generated this result transmitted reference range: 12.0 - 14.7 Seconds. The reference range was not used to interpret this result as normal/abnormal. INR (test code = 6301-6) Normal INR <1.1; Warfarin Therapeutic range 2.0 to 3.0 or 2.5 to 3.5, depending upon the indications. Lab Interpretation (test code = 50915-6) Normal [facility] CenterUrinalysis2021-[facility] 14:32:20* Test Item Value Reference Range Interpretation Comme nts APPEARANCE (test code = 3791348031) Hazy Clear A COLOR (test code = 3015137616) Shellie Yellow A PH (test code = 4931570482) 4.8-8.0 SP GRAVITY (test code = 0675683122) 1.003-1.030 H GLU U QUAL (test code = 9489544980) Normal Normal BLOOD (test code = 4624738611) Negative Negative KETONES (test code = 7069562017) Negative Negative PROTEIN (test code = 2887-8) Negative Negative UROBILIN (test code = 1059739041) Normal Normal BILIRUBIN (test code = 0622974778) Negative Negative NITRITE (test code = 7994997119) Negative Negative LEUK MITALI (test code = 1691518000) Negative Negative RBC/HPF (test code = 0245642203) See_Comment [Automated [employer] ([employer])] The system which generated this result transmitted reference range: 0 - 3 HPF. The reference range was not used to interpret this result as normal/abnormal. WBC/HPF (test code = 8332055834) See_Comment [Automated [employer] [facility])] The system which generated this result transmitted reference range: 0 - 5 HPF. The reference range was not used to interpret this result as normal/abnormal. BACTERIA (test code = 2532713769) Few Negative A MUCOUS (test code = 5646413619) Marked Negative LPF A SQ EPITH (test code = 5931655760) <1 HPF Lab Interpretation (test code = 97574-4) Abnormal [facility] CenterURINE DRUG (IMMUNOASSAY) - COMPREHENSIVE DRUG UBSGCD2759-07-70 14:30:54* Test Item Value Reference Range Interpretation Comme nts AMPHET (test code = 7493831280) Negative Negative REBECA U (test code = 0749075428) Negative Negative BENZO U (test code = 2259487146) Negative Negative Cocaine Metabolite (test code = 6660002586) Negative Negative METHADONE (test code = 2387007180) Negative Negative OPIATES (test code = 1885590614) Negative Negative PCP (test code = 6173707488) Negative Negative THC (test code = 4020876454) Presumptive Positive Negative A DESIREE (test code = DESIREE) Urine Drug [...] employment testing, legal testing). Lab Interpretation (test code = 10503-6) Abnormal [facility] CenterSALICYLATE2021-06-05 13:41:52* Test Item Value Reference Range Interpretation Comme nts SALICYLATE (test code = 3868305945) <10 mg/L DESIREE (test code = DESIREE) Therapeutic Range: ? Analgesic and Antipyretic Use ? 20-100 mg/L ? ? Anti-Inflammatory Use ? 100-250 mg/L Toxic Range: ? Greater than 300 mg/L [facility] CenterACETAMINOPHEN2021-06-05 13:41:52* Test Item Value Reference Range Interpretation Comme nts ACETAMINOP (test code = 9337228021) <10.0 10.0-30.0 L DESIREE (test code = DESIREE) Toxic: Greater jurgen n 200 ug/mL @ 4 hour post ingestion or greater than 50 ug/mL @ 12 hour post ingestion Lab Interpretation (test code = 58375-8) Abnormal [facility] CenterCOVID-19 (ID NOW RAPID TESTING)2020-12-10 13:13:08* Test Item Value Reference Range Interpretation Comme nts SARS-CoV-2 Rapid ID NOW (test code = 30748-5) Not Detected Not Detected DESIREE (test code = DESIREE) ID NOW COVID-19 As say is an isothermal nucleic acid amplification test intended for the qualitative detection of nucleic acid from SARS-CoV-2 viral RNA in nasopharyngeal (CUSTOMER SERVICE TECHNICIAN) specimens. It is used under Emergency Use [...] patient testing if clinically indicated. Lab Interpretation (test code = 44435-8) Normal [facility] CenterETHANOL2021-06-05 13:08:25* Test Item Value Reference Range Interpretation Comme nts ALCOHOL (test code = 3591325311) <10 mg/dL DESIREE (test code = DESIREE) <10 Unkrvole30-296 Toxic>100 Depression of TIMBER BUYER>400 Fatalities Reported [facility] CenterLactic Acid Whole Rzikw2459-49-79 12:41:49* Test Item Value Reference Range Interpretation Comme nts LACTIC ACID (test code = 1571636808) 1.89 mmol/L 0.50-2.20 Lab Interpretation (test cod e = 92861-8) Normal [facility] CenterMAGNESIUM2021-06-05 12:38:27* Test Item Value Reference Range Interpretation Comme nts MAGNESIUM (test code = 6863995330) 1.7 mg/dL 1.7-2.4 Lab Interpretation (test cod e = 79817-6) Normal [facility] CenterHepatic Function Panel (ALB, T.PRO, BILI T, BU/BC, ALT, AST, ALK PHOS)2020-12-10 12:38:07* Test Item Value Reference Range Interpretation Comme nts TOTAL BILI (test code = 3648610116) 0.8 mg/dL 0.1-1.1 BILI UNCON (test code = 7297058744) 0.6 mg/dL 0.1-1.1 BILI CONJ (test code = 0288279213) 0.0 mg/dL 0.0-0.3 T PROTEIN (test code = 5287782908) 8.4 g/dL 6.3-8.2 H ALBUMIN (test code = 4676075105) 5.2 g/dL 3.5-5.0 H ALK PHOS (test code = 3412493525) 69 U/L 34-122 ALTv (test code = 1742-6) 39 U/L 5-50 AST(SGOT) (test code = 6082926794) 36 U/L 13-40 Lab Interpretation (test cod e = 31767-2) Abnormal [facility] Metabolic Panel (NA, K, CL, CO2, GLUCOSE, BUN, CREATININE, CA)2020-12-10 12:37:47* Test Item Value Reference Range Interpretation Comme nts NA (test code = 2731412901) 141 mmol/L 135-145 K (test code = 5553320673) 3.7 mmol/L 3.5-5.0 CL (test code = 5137910167) 105 mmol/L 98-108 CO2 TOTAL (test code = 5806145241) 27 mmol/L 23-31 AGAP (test code = 8604899728) 2-16 BUN (test code = 9443226033) 19 mg/dL 7-23 GLUCOSE (test code = 6550827592) 128 mg/dL 70-110 H CREATININE (test code = 8848140108) 1.16 mg/dL 0.60-1.25 CALCIUM (test code = 4071384878) 9.6 mg/dL 8.6-10.6 eGFR (test code = 6318867982) mL/min/1.73m2 DESIREE (test code = DESIREE) Association of [...] or abnormalities in imaging tests). Lab Interpretation (test code = 99229-9) Abnormal [facility] CenterLipase Pdpua0642-01-18 12:37:47* Test Item Value Reference Range Interpretation Comme nts LIPASE (test code = 3266937733) 241 U/L 0-220 H Lab Interpretation (test cod e = 63223-7) Abnormal [facility] CenterCBC with Iygxoocrkusm0358-23-21 12:25:07* Test Item Value Reference Range Interpretation Comme nts WBC (test code = 6690-2) See_Comment H [Automated message] The system which generated this result transmitted reference range: 4.20 - 10.70 10*3/?L. The reference range was not used to interpret this result as normal/abnormal. RBC (test code = 789-8) See_Comment H [Automated message] The system which generated this result transmitted reference range: 4.26 - 5.52 10*6/?L. The reference range was not used to interpret this result as normal/abnormal. HGB (test code = 718-7) 16.8 g/dL 12.2-16.4 H HCT (test code = 4544-3) 49.4 % 38.4-49.3 H MCV (test code = 787-2) 87.1 fL 81.7-95.6 MCH (test code = 785-6) 29.6 pg 26.1-32.7 MCHC (test code = 786-4) 34.0 g/dL 31.2-35.0 RDW-SD (test code = 28266-6) 39.2 fL 38.5-51.6 RDW-CV (test code = 788-0) 12.3 % 12.1-15.4 PLT (test code = 777-3) See_Comment [Automated message] The system which generated this result transmitted reference range: 150 - 328 10*3/?L. The reference range was not used to interpret this result as normal/abnormal. MPV (test code = 50567-2) 9.3 fL 9.8-13.0 L NRBC/100 WBC (test code = 7459442646) See_Comment [Automated message] The system which generated this result transmitted reference range: 0.0 - 10.0 /100 WBCs. The reference range was not used to interpret this result as normal/abnormal. NRBC x10^3 (test code = 0687942274) <0.01 See_Comment [Automated message] The system which generated this result transmitted reference range: 10*3/?L. The reference range was not used to interpret this result as normal/abnormal. GRAN MAT (NEUT) % (test code = 770-8) 87.5 % IMM GRAN % (test code = 3781716390) 0.30 % LYMPH % (test code = 736-9) 5.2 % MONO % (test code = 5905-5) 6.4 % EOS % (test code = 713-8) 0.3 % BASO % (test code = 706-2) 0.3 % GRAN MAT x10^3(ANC) (test code = 5828400638) 12.14 10*3/uL 1.99-6.95 H IMM GRAN x10^3 (test code = 8376394763) 0.04 10*3/uL 0.00-0.06 LYMPH x10^3 (test code = 731-0) 0.72 10*3/uL 1.09-3.23 L MONO x10^3 (test code = 742-7) 0.89 10*3/uL 0.36-1.02 EOS x10^3 (test code = 711-2) 0.04 10*3/uL 0.06-0.53 L BASO x10^3 (test code = 704-7) 0.04 10*3/uL 0.01-0.09 Lab Interpretation (test code = 42116-9) Abnormal [facility] Notes Date/Time Note Provider Source 2023-12-05 13:43:20 9830-02-76R69:43:20F ormatting of this note might be different from the original.Patient has been notified of test results/ recommendations per Kayla Rogers verbal understanding 05602-3Tbwebfpju encounter CjuxOC0938-06-22Q82:43:27Telephone encounter NoteTXT1.2.840.612582.1.13.104.2.7 .2.957171|[id number] for patient sjqp73240-4GxdtXLJCEXMSYNDSwylwoez d C-CDA narrative mjli721273169Bcglof L Cantu [address] Tozh[id number] 36JKXDPKVFANETGDXIIMXZCN1086-62-71 T13:43:271.2.840.423864.1.72.3.15| 1.2.840.913567.1.13.104.2.7.2.7278 [id number] Anais Perez [facility] 2023-12-05 13:39:34 1387-87-19P28:39:34F ormatting of this note might be different from the original.RX sent 07446-9Sxlpipuqd encounter DapxMA0388-23-68P83:39:41Telephone encounter NoteTXT1.2.840.738559.1.13.104.2.7 .2.538751|[id number] for patient qhwn54091-7UqwyTUNPWYJSOXDPuiobgxx d C-CDA narrative text[id number] 70BXHAXSQSJMZURNOKVDXWUF5866-07-41 T13:39:411.2.840.472553.1.72.3.15| 1.2.840.098504.1.13.104.2.7.2.7278 [id number] [facility] 2023-12-05 13:27:02 9004-16-69Y07:27:02F ormatting of this note might be different from the original.Please review and advise. Patient has an appointment for 12/12/23. 03781-8Djejoehhr encounter EnyeBF6647-41-01I90:27:38Telephone encounter NoteTXT1.2.840.598642.1.13.104.2.7 .2.990811|[id number] for patient mvtf93264-5IjdtMYHPAJNOGUFIclyrcaz d C-CDA narrative fdhq881466413Vffqux [place] RNUT[id number] 60BCBINHALXMHQSNYYHLDSSL6966-97-62 T13:27:381.2.840.422374.1.72.3.15| 1.2.840.379144.1.13.104.2.7.2.7278 [id number] Edilia Marreor RN [facility] 2023-12-05 13:22:05 6391-94-64T54:22:05F ormatting of this note might be different from the original.Copied from [facility] #[id number]. 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 He has an appt schedule for 12/11 but would like to begin treatment ASAPPlease advise [phone] (home)[facility] [address] [place] [address]20[address]Xdbbr: [phone] Swwhfwadcmmbfh signed by Ernst Reeder at 12/05/2023 1:24 PM UAZ08365-6Nvsyhrelc encounter WngqZW4432-84-64U53:24:34Telephone encounter NoteTXT1.2.840.325714.1.13.104.2.7 .2.954015|[id number] for patient nueo57625-6KtqjNQZPXSSJFIOGcjnqwls d C-CDA narrative lkzo079213676BdTncuqe Varinder[address] VzhkLrdxhrwgnYrzqonvyiBMVS60771235 34LWHIVWNYMZJQFNVDPRZYEF6018-71-50 T13:24:341.2.840.173556.1.72.3.15| 1.2.840.066853.1.13.104.2.7.2.7278 [id number] [facility] 13:05:05 2217-59-21B88:05:05F ormatting of this note might be different from the original.OCA worked 10.29.23 post visit no additional orders needed at this timeNicole Wooten 10/30/2023 1:05 PM 55464-1Zunzwhzoh encounter UgakZD6517-62-52U76:05:46Telephone encounter NoteTXT1.2.840.905394.1.13.104.2.7 .2.529654|7569694979ROHzcyferma for patient zdkz16290-7FrcaZVDEHGYPLDEDdttldyd d C-CDA narrative oufd614934049Tyxyqe A [address] GsvtApglffowaXefkedqimGZSL01737713 59QIKQGEKKALERWTIRYPLLBV2858-31-59 T13:05:461.2.840.971738.1.72.3.15| 1.2.840.116952.1.13.104.2.7.2.7278 [id number] [facility] 11:07:02 3385-68-01B31:07:02F ormatting of this note is different from the original.Images from the original note were not included.Notes: 03/12/23Last Refilled:[address]: Fwdrwq VisitsDate Type Provider Dept1 Office Visit Kayla Grimes MD [facility] Med04/23/23 Office Visit Kayla Grimes MD [facility] Med12/12/22 Office Visit Kayla Grimes MD [facility] Med12/05/22 Office Visit Kayla Grimes MD [facility] Med11/06/22 Office Visit Alena Min FNP [facility] Med08/07/22 [facility] recent visits within past 540 days with a meds authorizing provider and meeting all other requirementsFuture AppointmentsDate Type Provider Dept10/30/23 Appointment Kayla Grimes MD [facility] MedShowing future appointments within next 150 days with a meds authorizing provider and meeting all other requirementspantoprazole 40 mg EC tabletSig: Take 1 tablet by mouth in the morning.Disp: 30 tablet Refills: 3Start: 4Class: eRXFor: Epigastric painLast ordered: 7 months ago (03/12/2023) by Kayla Grimes MDGastroenterology: Antiulcer - Proton Pump Inhibitors Saaijt8210/09/2023 11:03 AMProtocol Details Valid encounter within last 12 monthsTo be filled at: None [Patient requested: Al] 00302-4Evwvwljrx encounter [id number]:08:16Telephone encounter NoteTXT1.2.840.064214.1.13.104.2.7 .2.499301|[id number] for patient mprr54694-1HmjfWNONINJRATHNkcqrisr d C-CDA narrative [id number] L Cantu [address] [id number] [id number] T11:08:161.2.840.418103.1.72.3.15| 1.2.840.084997.1.13.104.2.7.2.7278 [id number] Anais Perez [facility] 2023-09-16 09:23:59 0576-55-23E76:23:59F ormatting of this note might be different from the original.OCA worked 3.5.24 PT post visit no additional orders needed at this time.Nicole Wooten 09/16/2023 9:24 AM 89657-8Gotgiyipj encounter NliqEY9687-42-40H81:24:54Telephone encounter NoteTXT1.2.840.439532.1.13.104.2.7 .2.024902|[id number] for patient urfr15550-8ZwjkHMWBKZQXKNARxfuqvca d C-CDA narrative [id number] A [facility]y[id number] 99EGWEQMCGOQRWLQEMBENDCL5390-24-75 T09:24:541.2.840.271318.1.72.3.15| 1.2.840.521066.1.13.104.2.7.2.7278 [id number] [facility] 10:24:24 8521-34-40X22:24:24F ormatting of this note might be different from the original.OCKvgn worked 09.03.23 DNKAMelshalini Wooten 09/05/2023 10:24 AM 80624-0Wdctxnrhv encounter FnnqEP3050-74-07G35:24:45Telephone encounter NoteTXT1.2.840.125940.1.13.104.2.7 .2.034877|[id number] for patient zipt89136-0WsiqTSPKIBKVRVTDhaskucx d C-CDA narrative [id number] A [facility] Dh[id number] 58WHGUAEPBXWFYMQLRQOKKKP6586-73-50 T10:24:451.2.840.459731.1.72.3.15| 1.2.840.794203.1.13.104.2.7.2.7278 [id number] Nicole Wooten [facility] 2023-08-28 08:35:57 4495-75-10B36:35:57F ormatting of this note might be different from the original.IVANA worked 06.25.24 PT post visitMelody Kvng Wooten 08/28/2023 8:36 AM 45951-5Ksbsubqqu encounter DiwrVQ9083-48-02A59:36:31Telephone encounter NoteTXT1.2.840.965298.1.13.104.2.7 .2.500189|[id number] for patient xyhg77770-3PabwLNHIYCDAMWKMbxrooss d C-CDA narrative [id number] A [id number] 42YCLJAJNGVSUENHNYXSQZWD7961-96-59 T08:36:311.2.840.343363.1.72.3.15| 1.2.840.912363.1.13.104.2.7.2.7278 [id number] Nicloe Wooten [facility] 2023-08-26 08:25:39 4891-77-60F38:25:39F ormatting of this note might be different from the original.IVANA worked 08.22.23 post visit no additional orders needed at this time.Nicole Calderon Wooten 08/26/2023 8:26 AM 04770-4Jgnqhpxln encounter YxvkLS2439-91-34S11:26:16Telephone encounter NoteTXT1.2.840.164001.1.13.104.2.7 .2.014272|[id number] for patient zxta96027-2WpboWSATMAJFVYQPeoahzdh d C-CDA narrative [id number] A [id number] 43ECMLWHYIMTKNDFMJUTWLVC0955-79-50 T08:26:161.2.840.685180.1.72.3.15| 1.2.840.510109.1.13.104.2.7.2.7278 [id number] Nicole Wooten [facility] 2023-08-23 08:12:32 9055-69-43J21:12:32F ormatting of this note might be different from the original.OCA worked 10.09.27 post visitNicole Wooten 08/23/2023 8:12 AM 89763-4Hsvguvnne encounter WvkiNY4297-66-91E73:13:00Telephone encounter NoteTXT1.2.840.175790.1.13.104.2.7 .2.151212|[id number] for patient lnim51643-3WyglXKNMMORAVVNJmxvrzki d C-CDA narrative [id number] A [facility]christy[id number] 45CTZFHNIBRQWPDBBZVPZCRS6243-31-87 T08:13:001.2.840.069920.1.72.3.15| 1.2.840.609757.1.13.104.2.7.2.7278 [id number] Nicole Wooten [facility] 2023-08-12 18:22:10 4509-98-87P51:22:10F ormatting of this note might be different from the original.Pt discharged with diagnosis of foreign body sensation in throat and gastroesophageal reflux disease. Printed and verbal instructions reviewed with and given to pt. Prescriptions given x 2. Pt verbalized understanding of teaching, medications, and recommended follow-up. Denies questions or concerns at this time. Pt ambulatory at discharge. Appears in no apparent distress. No ataxia noted. 75903-5Srnmwpawj department CcxkLQ4517-06-73J40:23:33Emergency department NoteTXT1.2.840.211798.1.13.104.2.7 .2.835419|[id number] for patient mlup80357-6FtspAYACYFYYBJWKbcdchdc d C-CDA narrative [id number] Moctezuma RN[id number] 93HKEMPBYYDCFZVXTYEBKJJY7461-55-47 T18:23:331.2.840.906615.1.72.3.15| 1.2.840.849134.1.13.104.2.7.2.7278 [id number] Lacy Moctezuma RN [facility] 2023-08-12 17:12:34 2167-28-12T98:12:34S ummary: Patient refused IV Patient refused IV and took his medication orally. 85012-3Cyhmfnvmc department ZjmfKV5647-29-16U75:13:10[facility] NoteTXT1.2.840.609009.1.13.104.2.7 .2.727644|[id number] for patient sdtm10490-2YjhnGEJDUPKOZACDovoinna d C-CDA narrative [id number] Schroeder RN[address] BelrV[id number] 67VZGAAOVHUAZJPDWVSSKRNW1341-94-70 T17:13:101.2.840.723567.1.72.3.15| 1.2.840.749499.1.13.104.2.7.2.7278 [id number] Joann Keys RN [facility] 2023-08-12 15:53:16 7892-02-92E17:53:16F ormatting of this note might be different from the original.Pt presents to ED with c/o feeling like 3 pills he took earlier are stuck in his throat. Pt is able to tolerate drinking water, pt has forced himself to vomit several times and feels like there is acid in his throat. Pt is 100% on RA and in NAD.Pt is talking in complete sentences and able to swallow with no difficulty.Pt has not been compliant with his stomach medication 02338-8Qjqmxvxce department Triage ewsqRA0477-62-39Z15:57:36[facility] department Triage noteTXT1.2.840.905173.1.13.104.2.7 .2.673077|[id number] for patient oihk40103-4Gwavszxds department NoteLNNARRATIVEFormatted C-CDA narrative [id number] E Linkes [id number] 66DCEWEFGOFVKKLNRQYBTYUR6886-86-71 T15:57:361.2.840.123359.1.72.3.15| 1.2.840.916834.1.13.104.2.7.2.7278 [id number] Millicent Enamorado [facility] 2023-08-09 11:41:48 7805-57-58O98:41:48F ormatting of this note might be different from the original.OCA worked 08.02.23 and 08.06.23Nicole Wooten 08/09/2023 11:43 AM 87757-2Vjryoufxu encounter KlcjGG0291-72-15W84:43:15Telephone encounter NoteTXT1.2.840.067656.1.13.104.2.7 .2.410741|[id number] for patient uewo75423-3ZqgqMGOPTHJILOOTgohqhzp d C-CDA narrative [id number] A [address]uentes[id number] 43LSPREMRWHZKAVLNKBSYUGV9260-94-06 T11:43:151.2.840.788414.1.72.3.15| 1.2.840.927736.1.13.104.2.7.2.7278 [id number] Nicole Wooten [facility] 2023-07-26 08:05:07 1733-32-05W81:05:07F ormatting of this note might be different from the original.OCA worked 07.19.23 post visit.Nicole Wooten 07/26/2023 8:06 AM 14921-0Qpajswxiv encounter HpmbUN7038-73-53Z18:06:47Telephone encounter NoteTXT1.2.840.342643.1.13.104.2.7 .2.223534|[id number] for patient jwik82172-9YxwhTFTRVJLQPIFEnztgyfj d C-CDA narrative [id number] A [id number] 30EDAYDYNNXQUVMHYLOQUCYQ1648-67-84 T08:06:471.2.840.195534.1.72.3.15| 1.2.840.434086.1.13.104.2.7.2.7278 [id number] Nicole Wooten [facility] 2023-07-11 15:01:10 7201-92-06F22:01:10F ormatting of this note might be different from the original.Faxed 07.05.23 ortho post-appointment file to [facility]. Requested new referral for PTMkiley Calderon Wooten 07/11/2023 3:01 PM 81134-1Yxygttnqh encounter OuvzVX9077-84-55I92:01:55Telephone encounter NoteTXT1.2.840.705779.1.13.104.2.7 .2.133212|[id number] for patient hfmr04210-4PpgtMSVSBEBQIJBVrqtrbsk d C-CDA narrative [id number] A [id number] 36XROJQXWBQRHSZTJLFHQCIF9640-91-24 T15:01:551.2.840.864377.1.72.3.15| 1.2.840.510363.1.13.104.2.7.2.7278 [id number] Nicole Wooten [facility] 2023-03-12 16:06:15 7590-89-47L77:06:15F ormatting of this note might be different from the original.Rx sent, [place] [address]-1Asazhtitf encounter SzikHI1312-64-26H11:06:24Telephone encounter NoteTXT1.2.840.230326.1.13.104.2.7 .2.957059|[id number] for patient xjlt22789-7WlctEUNDZMBOCX[address] Xm[id number] 64NCGTBKJCMFLPIYPVNIKNDA6387-35-68 T16:06:241.2.840.396684.1.72.3.15| 1.2.840.654005.1.13.104.2.7.2.7278 [id number] [facility]
[2023-12-22] MEDS ORDERED: KETOROLAC 30 MG/ML INJ ONE (11:41)
[2023-12-22] MEDS ORDERED: DIPHENHYDRAMINE 50 MG/ML VIAL ONE ×2 (11:41→13:06)
[2023-12-22] MEDS ORDERED: NA CHLORIDE 0.9% 1,000 ML ONE (11:42)
[2023-12-22 11:58] LABS: Absolute Lymphocytes (CBC) 1.2 K/uL (0.7-4.9); Absolute Monocytes 0.4 K/uL (0.1-1.3); Absolute Neutrophil 3.8 K/uL (1.8-8.0); Basophils % 0.4 % (0-1.3); Eosinophils % 0.6 % (0-4.4); Hematocrit 48.2 % (39.6-49.0); Hemoglobin 16.3 g/dL (13.6-17.9); Lymphocytes % 21.8 % (15.3-44.8); MCH 30.2 pg (27.0-35.0); MCHC 33.9 g/dL (32.0-36.0); MCV 89.1 fL (80-100); MPV 7.5 fL (7.6-11.3); Monocytes % 8.2 % (3.3-12.3); Platelets 335 thou/uL (152-406); Red Cell Distribution Width 13.9 % (12.1-15.2)
--- NOTE | 2023-12-22 12:05 | RAD REPORT ---
EXAM DESCRIPTION: CT - Head Brain Wo Cont - 12/22/2023 11:54 am CLINICAL HISTORY: Dizziness;Headache Headache, dizziness, drowsiness COMPARISON: Head Brain Wo Cont dated 03/19/2021 TECHNIQUE: All CT scans are performed using dose optimization technique as appropriate and may inclu de automated exposure control or mA/KV adjustment according to patient size. FINDINGS: No intracranial hemorrhage, hydrocephalus or extra-axial fluid collection.No areas of brai n edema or evidence of midline shift. The paranasal sinuses and mastoids are clear. The calvarium is intact. IMPRESSION: No acute intracranial abnormality.
[2023-12-22 12:17] LABS: Albumin 4.2 g/dL (3.4-5.0); Albumin/Globulin Ratio 1.1 (1.1-1.8); Anion Gap 6.1 mEq/L (5.0-15.0); Bilirubin Total 0.6 mg/dL (0.2-1.0); Globulin 3.9 g/dL (2.3-3.5); Potassium 4.1 mEq/L (3.5-5.1); Protein, Total 8.1 g/dL (6.4-8.2)
[2023-12-22] MEDS ORDERED: hydrOXYzine HCL 25 MG TAB ONE (13:05)
[2023-12-22] MEDS ORDERED: dexAMETHasone 10 MG/ML VIAL ONE (13:06)
[2023-12-22 13:19] LABS: Specific Gravity 1.021 (1.005-1.030); Sqamous Epithelial None Seen /HPF (None Seen); Urine Bacteria None Seen /HPF (<20); Urine Bilirubin NEGATIVE (Negative); Urine Blood Negative (Negative); Urine Clarity Clear (Clear); Urine Color Light-Yellow (Yellow); Urine Culture Reflex Order NOT NEEDED; Urine Glucose NEGATIVE (Negative); Urine Ketones NEGATIVE (Negative); Urine Micro Reflex YN NO BILL MICROSCOPIC; Urine Mucus Slight /HPF (None Seen); Urine Nitrite NEGATIVE (Negative); Urine Protein NEGATIVE (Negative); Urine RBC <5 /HPF (None Seen); Urine Urobilinogen Normal (Normal); Urine WBC <5 /HPF (<5)
--- NOTE | 2023-12-22 13:39 | EDPHYS ---
Physician Documentation [facility] Name: Ramiro Jay Age: 28 yrs Sex: Male : 1995 Arrival Date: 12/22/2023 Time: 11:08 Bed 8 Private MD: ED Physician Umair Flores HPI: 12/21 11:30 This 28 yrs old Male presents to ER via Ambulatory with complaints of ec2 Headache, Dizziness. 11:30 Patient arrives today for evaluation of 2 to 3 days of headache along with dizziness. ec2 Patient reports that he has been experiencing headaches along with dizziness as well as body aches with associated nausea. Patient reports no cough or cold symptoms.. Historical: - Allergies: 11:17 No Known Allergies; hb - Home Meds: 11:17 Acyclovir Oral [Active]; hb - PMHx: 11:17 ADD/ADHD; Pancreatitis; Herpes; hb - PSHx: 11:17 None; hb - Immunization history:: Adult Immunizations up to date. - Infectious Disease History:: Denies. - Social history:: Smoking status: Patient denies any tobacco usage or history of. ROS: 11:34 Constitutional: as per hpi ec2 Exam: 11:34 Constitutional: GEN: NAD Head: atraumatic Eyes: EOMI Ears: External ears are ec2 normal. CV: regular rate LUNGS: no respiratory distress ABD: non-distended SKIN: no evidence of rashes MSK: no evidence of trauma NEURO: moves all extremities equally, cranial nerves II through XII intact, strength intact all 4 extremities, no focal neurologic deficit appreciated. Neck with good range of motion Vital Signs: 11:15 BP 149 / 92; Pulse 89; Resp 18; Temp 98.3(O); Pulse Ox 100% on R/A; Weight 99.79 kg; hb Height 6 ft. 2 in. ; Pain 4/10; 13:20 BP 137 / 65; Pulse 80; Resp 16 S; Pulse Ox 100% on R/A; as6 11:15 Body Mass Index 28.25 (99.79 kg, 187.96 cm) hb 11:15 Pain Scale: Adult hb Merlin Coma Score: 11:34 Eye Response: spontaneous(4). Motor Response: obeys commands(6). Verbal Response: ec2 oriented(5). Total: 15. MDM: 11:14 Patient medically screened. ec2 11:34 Data reviewed: vital signs. ED course: Patient arrives today for evaluation of headache ec2 and dizziness. Examination remarkable for well-appearing nontoxic dividual with reassuring vital signs. Will obtain lab work, CT scan of the head and treat the patient symptoms. Differential diagnosis includes viral infection, nonspecific headache. Patient also reports that he was previously treated for trichomoniasis but was concerned about that despite any changes to his penis or discharge currently.. 13:00 ED course: Metabolic profile with appropriate electrolytes and renal function. CBC ec2 shows no leukocytosis. CT scan of the head shows no acute intracranial abnormality. . 13:37 ED course: On reassessment, patient with some improvement in symptoms. Will discharge ec2 home. Suspect viral infection causing patient's symptoms. Return precautions given patient's urine without evidence of trichomoniasis. 12/21 11:30 Order name: CBC with Diff ec2 12/21 11:30 Order name: CMP; Complete Time: 12:59 ec2 12/21 11:36 Order name: UAM; Complete Time: 13:35 ec2 12/21 11:30 Order name: CT Head Brain wo Cont; Complete Time: 12:59 ec2 12/21 11:30 Order name: IV Saline Lock; Complete Time: 11:45 ec2 Administered Medications: 11:47 Drug: NS 0.9% IV 1000 ml IV at 1 bolus Per protocol; 1000 mL bolus Route: IV; Rate: 1 ko1 bolus; Site: right antecubital; 13:55 Follow up: Response: No adverse reaction; IV Status: Completed infusion; IV Intake: as6 1000ml 11:48 Drug: Droperidol IVP 2.5 mg IVP once Route: IVP; Site: right antecubital; ko1 13:55 Follow up: Response: No adverse reaction as6 11:48 Drug: Ketorolac IVP 15 mg IVP once Route: IVP; Site: right antecubital; ko1 13:55 Follow up: Response: No adverse reaction as6 11:48 Drug: diphenhydrAMINE IVP 25 mg IVP once Route: IVP; Site: right antecubital; ko1 13:56 Follow up: Response: No adverse reaction as6 13:07 Drug: Decadron - Dexamethasone IVP 10 mg IVP once Route: IVP; Site: right antecubital; ko1 13:56 Follow up: Response: No adverse reaction as6 13:08 Drug: hydrOXYzine PO 50 mg PO once Route: PO; ko1 13:56 Follow up: Response: No adverse reaction as6 13:08 Drug: diphenhydrAMINE IVP 25 mg IVP once Route: IVP; Site: right antecubital; ko1 13:56 Follow up: Response: No adverse reaction as6 Disposition Summary: 12/22/23 13:38 Discharge Ordered Notes: Location: Home ec2 Condition: Stable ec2 Diagnosis - Viral infection, unspecified ec2 Followup: ec2 - With: Private Physician - When: - Reason: Re-evaluation by your physician Discharge Instructions: - Discharge Summary Sheet ec2 - Viral Illness, Adult ec2 Forms: - Medication Reconciliation Form ec2 - Antibiotic Education ec2 - Prescription Opioid Use ec2 - Patient Portal Instructions ec2 - Leadership Thank You Letter ec2 Prescriptions: - Compazine 10 mg Oral Tablet - take 1 tablet ORAL route every 8 hours As needed; 20 tablet; Refills: 0, ec2 Product Selection Permitted Signatures: Dispatcher [employer] EDMS Brittny Agudelo RN RN Luana Bowden RN RN ko1 Umair Flores MD MD ec2 Rome Malcolm RN as6 Corrections: (The following items were deleted from the chart) 11:34 11:30 Patient arrives today for evaluation of 2 to 3 days of headache along with ec2 dizziness. ec2
--- NOTE | 2023-12-22 13:39 | ER ---
Nurse's Notes [facility] Name: Ramiro Jay Age: 28 yrs Sex: Male : 1995 Arrival Date: 12/22/2023 Time: 11:08 Bed 8 Private MD: Diagnosis: Viral infection, unspecified Presentation: 12/21 11:15 Chief complaint: N/V/D, upper abdominal pain, headache, and dizziness x 3-4 days. hb Coronavirus screen: At this time, the client does not indicate any symptoms associated with coronavirus-19. Ebola Screen: No symptoms or risks identified at this time. Initial Sepsis Screen: Does the patient meet any 2 criteria? No. Patient's initial sepsis screen is negative. Does the patient have a suspected source of infection? No. Patient's initial sepsis screen is negative. Risk Assessment: Do you want to hurt yourself or someone else? Patient reports no desire to harm self or others. Onset of symptoms was December 19, 2023. 11:15 Method Of Arrival: Ambulatory hb 11:15 Acuity: MICHELA 3 hb Historical: - Allergies: 11:17 No Known Allergies; hb - Home Meds: 11:17 Acyclovir Oral [Active]; hb - PMHx: 11:17 ADD/ADHD; Pancreatitis; Herpes; hb - PSHx: 11:17 None; hb - Immunization history:: Adult Immunizations up to date. - Infectious Disease History:: Denies. - Social history:: Smoking status: Patient denies any tobacco usage or history of. Screenin:46 [facility] ED Fall Risk Assessment (Adult) History of falling in the last 3 months, as6 including since admission No falls in past 3 months (0 pts) Confusion or Disorientation No (0 pts) Intoxicated or Sedated No (0 pts) Impaired Gait No (0 pts) Mobility Assist Device Used No (0 pt) Altered Elimination No (0 pt) Score/Fall Risk Level 0 - 2 = Low Risk Oriented to surroundings, Maintained a safe environment, Educated pt \T\ family on fall prevention, incl call for assistance when getting out of bed, Assessed \T\ reinforced patient's understanding of fall precautions. Abuse screen: Denies threats or abuse. Denies injuries from another. Nutritional screening: No deficits noted. Tuberculosis screening: No symptoms or risk factors identified. Assessment: 11:45 General: Appears in no apparent distress. Behavior is calm, cooperative. Pain: as6 Complains of pain in head and abdomen Quality of pain is described as aching. Neuro: Reports dizziness, headache. Cardiovascular: Capillary refill < 3 seconds Patient's skin is warm and dry. Respiratory: Respiratory effort is even, unlabored, Respiratory pattern is regular, symmetrical. GI: Reports lower abdominal pain, diarrhea, nausea, vomiting. 12:50 Reassessment: No changes from previously documented assessment. Patient and/or family hb updated on plan of care and expected duration. Pain level reassessed. 13:54 Reassessment: Patient states feeling better. Patient states symptoms have improved. as6 Vital Signs: 11:15 BP 149 / 92; Pulse 89; Resp 18; Temp 98.3(O); Pulse Ox 100% on R/A; Weight 99.79 kg; hb Height 6 ft. 2 in. ; Pain 4/10; 13:20 BP 137 / 65; Pulse 80; Resp 16 S; Pulse Ox 100% on R/A; as6 11:15 Body Mass Index 28.25 (99.79 kg, 187.96 cm) hb 11:15 Pain Scale: Adult hb Raeann Coma Score: 11:34 Eye Response: spontaneous(4). Motor Response: obeys commands(6). Verbal Response: ec2 oriented(5). Total: 15. ED Course: 11:11 Patient arrived in ED. mr 11:14 Umair Flores MD is Attending Physician. ec2 11:17 Triage completed. hb 11:18 Arm band placed on. hb 11:31 Luana Bowden, AUDRA is Primary Nurse. ko1 11:45 CBC with Diff Sent. as6 11:45 CMP Sent. as6 11:45 Inserted saline lock: 20 gauge in right antecubital area, using aseptic technique. as6 Blood collected. 11:46 Bed in low position. Call light in reach. as6 11:56 CT Head Brain wo Cont In Process Unspecified. EDMS 13:54 No provider procedures requiring assistance completed. IV discontinued, intact, as6 bleeding controlled, No redness/swelling at site. Pressure dressing applied. 13:55 Provided Education on: follow up. as6 Administered Medications: 11:47 Drug: NS 0.9% IV 1000 ml IV at 1 bolus Per protocol; 1000 mL bolus Route: IV; Rate: 1 ko1 bolus; Site: right antecubital; 13:55 Follow up: Response: No adverse reaction; IV Status: Completed infusion; IV Intake: as6 1000ml 11:48 Drug: Droperidol IVP 2.5 mg IVP once Route: IVP; Site: right antecubital; ko1 13:55 Follow up: Response: No adverse reaction as6 11:48 Drug: Ketorolac IVP 15 mg IVP once Route: IVP; Site: right antecubital; ko1 13:55 Follow up: Response: No adverse reaction as6 11:48 Drug: diphenhydrAMINE IVP 25 mg IVP once Route: IVP; Site: right antecubital; ko1 13:56 Follow up: Response: No adverse reaction as6 13:07 Drug: Decadron - Dexamethasone IVP 10 mg IVP once Route: IVP; Site: right antecubital; ko1 13:56 Follow up: Response: No adverse reaction as6 13:08 Drug: hydrOXYzine PO 50 mg PO once Route: PO; ko1 13:56 Follow up: Response: No adverse reaction as6 13:08 Drug: diphenhydrAMINE IVP 25 mg IVP once Route: IVP; Site: right antecubital; ko1 13:56 Follow up: Response: No adverse reaction as6 Medication: 11:47 VIS not applicable for this client. as6 Intake: 13:55 IV: 1000ml; Total: 1000ml. as6 Outcome: 13:38 Discharge ordered by . ec2 13:54 Discharged to home ambulatory, as6 13:54 Condition: stable 13:54 Discharge instructions given to patient, Instructed on discharge instructions, follow up and referral plans. medication usage, Demonstrated understanding of instructions, follow-up care, medications, Prescriptions given X 1, 13:55 Patient left the ED. as6 Signatures: Dispatcher [employer] Sabra Cordero, Fran Peters mr Brittny Agudelo, Rome Harvey RN, RN RN as6 Luana Bowden RN RN ko1 Umair Flores MD MD ec2
[2023-12-22 14:21] VITALS: BP 137/65; TEMP 98.3; O2SAT 100
== END 2023-12-22 13:55 | disposition home or self-care (01) ==
LOC: ER 11:08
DX: B34.9 Viral infection, unspecified (principal)
CPT/HCPCS: 85025; 81001; 36415; 80053; 70450; J1200 ×2; J1100; J7030

== ENCOUNTER 2024-03-03 15:48 | Emergency (ER) | payer OTHER ==
--- OUTSIDE RECORDS SUMMARY | 2024-03-03 16:03 | XMS REPORT | Continuity of Care Document ---
Author Name Unknown Address [address] [facility] [address] [place] [address] [facility] thconnect Address [address] [facility] [place] [address] Care Team Providers Care Landscape Contractor Name Role Phone Kayla Grimes MD Primary Care Physici an SHAUNNA DONATO Attending Clinician Unavailable ALENA MIN Attending Clinician Unavailable Kayla Grimes MD Attending Clinician KAYLA GRIMES Attending Clinician Adalgisa vailable Kathy Ji Attending Clinician + [phone] Kayla Grimes MD Attending Clinician KATHY LUX Attending Clinician Unavailab sena Steiner, Attending Attending Clinician Unavailab EDDIE Strickland Attending Clinician Unav Nicole Hernandez Attending Clinician Unavaila juan Barber MA, Alexandrea A Attending Clinician Unavailab Sebastian Wen PTA F Attending Clinician Unavaila LORENA Carrera Attending Clinician UnavailLORENA Starkey Attending Clinician UnavailEddie Barreto MD Attending Clinician + Doctor Unassigned, [place] Attending Clinician U Lorena Quiñonez MD Attending Clinician [phone] ZOHRA PRATER Attending Clinician Unavailable Zohra Stephen Attending Clinician [phone] Arabella TAVAREZ, Val Attending Clinician UnavailDHARMESH Ribeiro Attending Clinician Unavailable Bebo SHULTZ, Dharmesh Davis Attending Clinician [phone] GORDON NORWOOD Attending Clinician Unavailable Gordon Norwood MD Attending Clinician + [phone] BABATUNDE HERNÁNDEZ Attending Clinician Unavailable Tylor Newman MD Attending Clinician +[phone] EDILIA NOLASCO Attending Clinician Unavailable Edilia Nolasco MD Attending Clinician +[phone] KADEN ANDREW Attending Clinician Unavailable Alena Johnson Attending Clinician [phone] SULMA VIZCARRA Attending Clinician Shani Magallanes [facility], Sheila Lovell Attending Clinician +[phone] BREANNE BENAVIDES Attending Clinician Unavailable BREANNE BENAVIDES Attending Clinician Unavailable IVY THAKKAR Attending Clinician Unavaila Ivy Terrazas Attending Clinician [phone] AMARILIS BANUELOS Attending Clinician Unavailable Amarilis Banuelos NP Attending Clinician + [phone] Kaden Andrew MD Attending Clinician [phone] PRIYANKA RIVERA Attending Clinician Unavailable Jena Veloz Attending Clinician BERNARDO Walker Attending Clinician Unavaila GAURAV Davison Attending Clinician Unavailable Gaurav Mendenhall Attending Clinician +[phone] Lab, Ang - Db Attending Clinician Unavailable Thi Trent DO Attending Clinician +[phone] Gianni PAC, K Carol Attending Clinician +[phone] Barrington Bemran MD Attending Clinician + Raymundo Dexter MD Attending Clinician + [phone] Daljit Velasco DO Attending Clinician + DALJIT VELASCO Attending Clinician Unavailable ZOHRA PRATER Admitting Clinician Unavailable DHARMESH HIGGINS Admitting Clinician Unavailable IVY THAKKAR Admitting Clinician Unavaila AMARILIS Wasserman Admitting Clinician Unavailable GAURAV ESPARZA Admitting Clinician Unavailable Raymundo Dexter MD Admitting Clinician [phone] Payers Payer Name Policy Type Policy Number Effective Date Expirati on Date Source TEDDY MOREIRA DIST [id number] 2022 00:00:00 2023 00:00:00 MEDICAID PENDING PENDING 2020 00:00:00 Problems Condition Name Condition Details Condition Category Status Onset Date Resolution Date Last Treatment Date Treating Clinician Comments Source Stomachach e Stomachach e Disease Active 03-08 00:00: 00 [facility] Dysuria Dysuria Disease Active 11-06 00:00: 00 [facility] Cervical radiculopa thy Cervical radiculopa thy Disease Active 11-06 00:00: 00 [facility] Encounter to establish care Encounter to establish care Disease Active 08-07 00:00: 00 [facility] Epigastric pain Epigastric pain Disease Active 08-07 00:00: 00 [facility] Nausea Nausea Disease Active 08-07 00:00: 00 [facility] Anxiety and depression Anxiety and depression Disease Active 08-07 00:00: 00 [facility] Vomiting Vomiting Disease Active 12-10 00:00: 00 [facility] No known active problems No known active problems Disease [facility] Allergies, Adverse Reactions, Alerts Allergy Name Allergy Type Status Severity Reaction(s) Onset Date Inactive Date Treating Clinician Comments Source NO KNOWN ALLERGIE S Drug Class Active [facility] Social History Social Habit Start Date Stop Date Quantity Comments Source Gender [facility] History of tobacco use Cigarette Smoker [facility] Alcohol intake 2023-08-13 00:00:00 2023-08-13 00:00:00 Ex-drinker (finding) [facility] Alcoholic beverage intake 2023-08-13 00:00:00 2023-08-13 00:00:00 Ex-drinker (finding) [facility] History of Social function 2023-05-16 00:00:2023-05-16 00:00:00 [facility] Exposure to SARS-CoV-2 (event) 2022-11-25 00:00:00 2022-12-05 09:48:00 Not sure [facility] Tobacco use and exposure 2022-08-07 00:00:00 2022-08-07 00:00:00 Smokeless tobacco non-user [facility] Tobacco Comment 2022-08-07 00:00:00 2022-08-07 00:00:00 quit 3 months ago [facility] Cigarettes smoked current (pack per day) - Reported 2022-08-07 00:00:00 2022-08-07 00:00:00 [facility] Cigarette pack-years 2022-08-07 00:00:00 2022-08-07 00:00:00 [facility] Sex assigned at 1995 00:00:00 1995 00:00:00 [facility] Smoking Status Start Date Stop Date Source Ex-smoker 2022-08-07 00:00:00 2022-08-07 [facility]:00[facility] Current every day smoker 2017-06-22 00:00:00 [facility] Medications Ordered Medication Name Filled Medication Name Start Date Stop Date Current Medication? Ordering Clinician Indication Dosage Frequency Signature (SIG) Comments Components Source pantoprazol e 40 mg EC tablet 03-03 00:00: 00 Yes [id number] 40mg Take 1 tablet by mouth in the morning. MUST BE SEEN FOR FURTHER REFILLS [facility] permethrin 5 % cream 12-19 00:00: 00 Yes APPLY CREAM FROM HEAD TO FEET, LEAVE ON FOR 8-14 HOURS THEN WASH WITH SOAP AND WATER. REPEAT OF LIVING MITES PRESENT 14 DAYS AFTER INITIAL TREATMENT [facility] valACYclovi r 500 mg tablet 12-19 00:00: 00 12-25 04:59 :00 Yes [id number] 1000mg Take 2 tablets by mouth in the morning for 5 days. [facility] ibuprofen 800 mg tablet 12-16 00:00: 00 Yes TAKE 1 TABLET BY MOUTH EVERY 8 HOURS WITH FOOD AND DRINK PLENTY OF WATER NEEDED FOR PAIN [facility] valACYclovi r (VALTREX) 500 mg tablet 12-04 00:00: 00 Yes [id number] 500mg Take 1 tablet by mouth in the morning and 1 tablet in the evening. [facility] chlorhexidi ne 0.12 % mouthwash 12-04 00:00: 00 Yes RINSE MOUTTH WITH 1 CAP FULL OF LIQUID AFTER BRUSHING TWICE DAILY. SWISH FOR APPROXIMAT BRET 60 SECONDS AND SPIT. [facility] pantoprazol e 40 mg EC tablet 10-08 00:00: 00 03-02 00:00 :00 No [id number] 40mg Take 1 tablet by mouth in the morning. [facility] famotidine (PEPCID AC) tablet 20 mg 08-12 23:00: 00 08-12 22:59 :00 No 20mg 20 mg, Oral, ONCE, 1 dose, On Sat08/12/23 at 1700, JOJO [facility] ondansetron (ZOFRAN-ODT ) disintegrat ing tablet 4 mg 08-12 22:56: 00 08-12 22:59 :00 No 4mg 4 mg, Oral, ONCE, 1 dose, On Sat08/12/23 at 1700, JOJO [facility] maalox:diph enhydrAMINE :lidocaine 2 % viscous 1:1:1 (FIRST-MOUT HWASH BLM) oral suspension 15 mL 08-12 22:30: 00 08-12 22:54 :00 No 15mL 15 mL, Oral, ONCE, 1 dose, On Sat08/12/23 at 1630, Routine [facility] ondansetron 4 mg disintegrat ing tablet 08-12 00:00: 00 Yes [id number] 4mg Take 1 tablet by mouth every 8 (eight) hours as needed for Nausea and Vomiting (N/V). [facility] aluminum & magnesium hydroxide-s imethicone 400-400-40 mg/5 mL suspension 08-12 00:00: 00 Yes [id number] 9104 10mL Take 10 mL by mouth every 8 (eight) hours as needed for Indigestio n. [facility] methylPREDN ISolone 4 mg tablets 2022-07 00:00: 00 Yes [id number] Take by mouth SEE-INSTRU CTIONS. follow package directions [facility] cyclobenzap rine 5 mg tablet 2022-07 00:00: 00 07-20 05:59 :00 No [id number] 5mg Take 1 tablet by mouth in the morning and 1 tablet at noon and 1 tablet in the evening. Do all this for 14 days. [facility] SERTraline 100 mg tablet 2022-07 00:00: 00 Yes 100mg Take 1 tablet by mouth at bedtime. [facility] ARIPiprazol e 5 mg tablet 2022-07 00:00: 00 Yes 5mg Take 1 tablet by mouth at bedtime. [facility] busPIRone 30 mg tablet 2022-07 024 10:55: 16 Yes 30mg Take 1 tablet by mouth in the morning and 1 tablet at noon and 1 tablet in the evening. [facility] valACYclovi r 500 mg tablet 2022-07 017 16:09: 58 04-23 00:00 :00 No 500mg Take 1 tablet by mouth in the morning. [facility] valACYclovi r 500 mg tablet 2022-07 017 00:00: 00 04-29 04:59 :00 No [id number] 500mg Take 1 tablet by mouth in the morning and 1 tablet in the evening. Do all this for 5 days. [facility] metroNIDAZO LE 500 mg tablet 2022-07 017 00:00: 00 04-24 04:59 :00 No [id number] 2000mg Take 4 tablets by mouth once now for 1 dose. [facility] pantoprazol e 40 mg EC tablet 9-05 00:00: 00 10-08 00:00 :00 No [id number] 40mg Take 1 tablet by mouth in the morning. [facility] SERTraline 50 mg tablet 02-07 00:00: 00 Yes 50mg Take 1 tablet by mouth at bedtime. [facility] SERTraline 50 mg tablet 02-07 00:00: 00 Yes 100mg Take 2 tablets by mouth at bedtime. [facility] busPIRone 10 mg tablet 7-15 00:00: 00 Yes 10mg Take 1 tablet by mouth in the morning and 1 tablet in the evening. [facility] busPIRone 10 mg tablet 15 00:00: 00 24 00:00 :00 No 15mg Take 1.5 tablets by mouth in the morning and 1.5 tablets in the evening. [facility] Methylcellu lose, with Sugar, (CITRUCEL, SUCROSE,) powder 01-03 00:00: 00 Yes [id number] 3g Take 3 g by mouth in the morning and 3 g in the evening. [facility] omeprazole 40 mg capsule 01-03 00:00: 00 Yes [id number] 40mg Take 1 capsule by mouth 2 (two) times daily before breakfast and dinner. [facility] Phenyleph-P ramoxin-Gly cr-W.Pet 0.25-1 % Crea 01-03 00:00: 00 Yes [id number] Apply to area(s) 2 (two) times daily. [facility] pantoprazol e 40 mg EC tablet 12-31 00:00: 00 01-03 00:00 :00 No [id number] 40mg Take 1 tablet by mouth in the morning. [facility] SERTraline (ZOLOFT) 25 mg tablet 12-13 00:00: 00 03-12 00:00 :00 No [id number] 12.5mg Take 0.5 tablets by mouth in the morning. [facility] busPIRone 5 mg tablet 12-12 00:00: 00 03-12 00:00 :00 No [id number] 5mg Take 1 tablet by mouth in the morning and 1 tablet in the evening. [facility] SERTraline (ZOLOFT) 50 mg tablet 12-12 00:00: 00 12-13 00:00 :00 No [id number] Take 0.5 tablets by mouth daily for 8 days, THEN 1 tablet daily for 30 days. [facility] acetaminoph en (TYLENOL) tablet 1,000 mg 12-12 00:00: 00 12-11 23:38 :00 No 1000mg 1,000 mg, Oral, ONCE, 1 dose, On Sat12/11/22 at 1900, Routine [facility] NaCl 0.9% (NS) bolus infusion 1,000 mL 12-11 23:45: 00 12-12 01:19 :00 No 1000mL at 999 mL/hr, 1,000 mL, IV Infusion, ONCE, 1 dose, On Sat12/11/22 at 1845, JOJO [facility] ketorolac (TORADOL) injection 30 mg 12-11 23:45: 00 12-11 23:38 :00 No 30mg 30 mg, Slow IV Push, ONCE, 1 dose, On Sat12/11/22 at 1845, JOJO [facility] hydrOXYzine (ATARAX) tablet 50 mg 12-11 23:00: 00 12-11 23:38 :00 No 50mg 50 mg, Oral, ONCE, 1 dose, On Sat12/11/22 at 1800, JOJO [facility] hydrOXYzine 50 mg tablet 12-11 00:00: 00 Yes [id number] 50mg Take 1 tablet by mouth every 8 (eight) hours as needed for Anxiety. [facility] ibuprofen 600 mg tablet 12-11 00:00: 00 01-03 00:00 :00 No [id number] 600mg Take 1 tablet by mouth every 6 (six) hours as needed for Pain (scale 4-6). [facility] ketorolac (TORADOL) injection 30 mg 12-08 23:45: 00 12-08 23:01 :00 No 30mg 30 mg, Slow IV Push, ONCE, 1 dose, On Sat12/08/22 at 1845, Routine [facility] NaCl 0.9% (NS) IV infusion 1,000 mL 12-08 21:45: 00 Yes 1000mL at 999 mL/hr, Intravenou s, CONTINUOUS , Starting on Sat12/08/22 at 1645, Until Discontinu ed, JOJO [facility] gabapentin 300 mg capsule 12-05 00:00: 00 12-27 04:59 :00 No [id number] 300mg Take 1 capsule by mouth in the morning and 1 capsule at noon and 1 capsule in the evening. Do all this for 21 days. [facility] valACYclovi r 500 mg tablet 11-27 15:38: 27 Yes 500mg Take 1 tablet by mouth in the morning. [facility] ketorolac (TORADOL) injection 30 mg 11-14 02:30: 00 11-14 01:44 :00 No 30mg 30 mg, Slow IV Push, ONCE, 1 dose, On Sat11/13/22 at 2130, JOJO [facility] ibuprofen 800 mg tablet 11-13 00:00: 00 12-12 00:00 :00 No [id number] 800mg Take 1 tablet by mouth in the morning and 1 tablet at noon and 1 tablet in the evening. Take with meals. [facility] cyclobenzap rine 5 mg tablet 11-06 00:00: 00 Yes [id number] 5mg Take 1 tablet by mouth in the morning and 1 tablet at noon and 1 tablet in the evening. [facility] methylPREDN ISolone (MEDROL, TRAV,) 4 mg tablets 11-06 00:00: 00 11-12 04:59 :00 No [id number] Take by mouth SEE-INSTRU CTIONS for 5 days. follow package directions [facility] pantoprazol e 40 mg EC tablet 18 00:00: 00 12-31 00:00 :00 No [id number] 40mg Take 1 tablet by mouth in the morning. [facility] famotidine (PEPCID ORAL) 08-07 13:33: 27 08-07 00:00 :00 No Take by mouth. [facility] ondansetron (ZOFRAN) 4 mg tablet 08-07 00:00: 00 Yes [id number] 4mg Take 1 tablet by mouth every 8 (eight) hours as needed for Nausea and Vomiting (N/V). [facility] pantoprazol e 40 mg EC tablet 08-07 00:00: 00 10-23 00:00 :00 No [id number] 40mg Take 1 tablet by mouth in the morning. [facility] famotidine 20 mg in NS 50 ml (PEPCID) 20 mg/50 mL Piggyback 20 mg 12-28 19:45: 00 12-28 19:31 :00 No 20mg 20 mg, IV Piggyback, ONCE, 1 dose, Sat12/28/20 at 1445, 50 mL [facility] NaCl 0.9% (NS) bolus infusion 1,000 mL 12-28 19:30: 00 12-28 19:31 :00 No 1000mL at 999 mL/hr, 1,000 mL, IV Infusion, ONCE, 1 dose, Sat12/28/20 at 1430, STAT [facility] iopamidol (ISOVUE 370-500 mL) injection 120 mL 12-28 18:40: 00 12-28 18:40 :00 No [id number] 120mL 120 mL, Intravenou s, ONCE, 1 dose, Sat12/28/20 at 1400, Routine [facility] ondansetron (ZOFRAN (PF)) injection 4 mg 12-28 18:30: 00 12-28 17:42 :00 No 4mg 4 mg, Slow IV Push, ONCE, 1 dose, Sat12/28/20 at 1330, JOJO [facility] ondansetron (ZOFRAN ODT) 4 mg disintegrat ing tablet 12-28 00:00: 00 08-07 00:00 :00 No [id number] 4mg Take 1 tablet by mouth every 8 (eight) hours as needed for Nausea and Vomiting (N/V). [facility] enoxaparin (LOVENOX) injection 30 mg 12-10 22:00: 00 Yes 30mg 30 mg, Subcutaneo us, DAILY, First dose on 12/10/20 at 1700, Until Discontinu ed, Routine [facility] lactated ringers IV infusion 1,000 mL 12-10 16:00: 00 Yes 1000mL at 100 mL/hr, 1,000 mL, IV Infusion, CONTINUOUS , Starting 12/10/20 at 1100, Until Discontinu ed, Routine [facility] acetaminoph en (TYLENOL) tablet 650 mg 12-10 14:58: 36 Yes 650mg 650 mg, Oral, Q6HPRN, Starting 12/10/20 at 0958, Until Discontinu ed, Routine, Pain (scale 1-3) [facility] ondansetron (ZOFRAN (PF)) injection 4 mg 12-10 13:00: 00 12-10 12:15 :00 No 4mg 4 mg, Slow IV Push, ONCE, 1 dose, 12/10/20 at 0800, JOJO [facility] NaCl 0.9% (NS) bolus infusion 1,000 mL 12-10 12:00: 00 12-10 12:15 :00 No 1000mL at 999 mL/hr, 1,000 mL, IV Infusion, ONCE, 1 dose, 12/10/20 at 0700, JOJO [facility] chlorhexidi ne 0.12 % mouthwash 11-21 00:00: 00 12-10 00:00 :00 No [id number] 15mL Swish and spit out 15 mL 2 (two) times daily. [facility] methylPREDN ISolone (MEDROL, TRAV,) 4 mg tablets 11-21 00:00: 12-10 00:00 :00 No [id number] Take by mouth SEE-INSTRU CTIONS. follow package directions [facility] acetaminoph en-codeine (TYLENOL-CO DEINE #3) 300-30 mg tablet 11-21 00:00: 00 12-10 00:00 :00 No [id number] 1{tbl} Take 1 tablet by mouth every 4 (four) hours as needed for Pain (scale 7-10). Indication s: acute pain [facility] ondansetron 4 mg disintegrat ing tablet 11-21 00:00: 00 12-10 00:00 :00 No [id number] 4mg Take 1 tablet by mouth every 8 (eight) hours as needed for Nausea and Vomiting (N/V). [facility] clindamycin 150 mg capsule 11-21 00:00: 00 11-29 04:59 :00 No [id number] 300mg Take 2 capsules by mouth 4 (four) times daily for 7 days. [facility] azithromyci n (ZITHROMAX Z-TRAV) 250 mg tablet 10 00:00: 00 12-10 00:00 :00 No [id number] 250mg Take 1 tablet by mouth SEE-INSTRU CTIONS. Take 500 mg day 1, then 250 mg days 2 to 5. [facility] dextrometho rphan-guaif enesin 10-100 mg/5 mL solution -10 00:00: 00 12-10 00:00 :00 No [id number] 10mL Take 10 mL by mouth every 6 (six) hours as needed for Cough. [facility] ibuprofen 800 mg tablet 4-10 00:00: 12-10 00:00 :00 No [id number] 800mg Take 1 tablet by mouth every 8 (eight) hours. [facility] cyclobenzap rine 5 mg tablet 2017-07 0-31 00:00: 00 12-10 00:00 :00 No 5mg Take 1 tablet by mouth 3 (three) times daily. [facility] CATAFLAM 50 mg tablet 2014-07 00:00: 00 12-10 00:00 :00 No 50mg Take 1 Tab by mouth 3 (three) times daily. [facility] Immunizations Ordered Immunization Name Filled Immunization Name Date Status Comments Source Hepatitis A Adult 2011-08-29 00:00:00 Completed [facility] Hepatitis A Adult 2011-08-29 00:00:00 Completed [facility] Hepatitis A Adult 2011-08-29 00:00:00 Completed [facility] Hepatitis A Adult 2011-08-29 00:00:00 Completed [facility] Hepatitis A Adult 2011-08-29 00:00:00 Completed [facility] Hepatitis A Adult 2011-08-29 00:00:00 Completed [facility] Hepatitis A Adult 2011-08-29 00:00:00 Completed [facility] Hepatitis A Adult 2011-08-29 00:00:00 Completed [facility] Hepatitis A Adult 2011-08-29 00:00:00 Completed [facility] Hepatitis A Adult 2011-08-29 00:00:00 Completed [facility] Hepatitis A Adult 2011-08-29 00:00:00 Completed [facility] Hepatitis A Adult 2011-08-29 00:00:00 Completed [facility] Hepatitis A Adult 2011-08-29 00:00:00 Completed [facility] Hepatitis A Adult 2011-08-29 00:00:00 Completed [facility] Hepatitis A Adult 2011-08-29 00:00:00 Completed [facility] Hepatitis A Adult 2011-08-29 00:00:00 Completed [facility] Hepatitis A Adult 2011-08-29 00:00:00 Completed [facility] Hepatitis A Adult 2011-08-29 00:00:00 Completed [facility] Hepatitis A Adult 2011-08-29 00:00:00 Completed [facility] Hepatitis A Adult 2011-08-29 00:00:00 Completed [facility] Hepatitis A Adult 2011-08-29 00:00:00 Completed [facility] Hepatitis A Adult 2011-08-29 00:00:00 Completed [facility] Hepatitis A Adult 2011-08-29 00:00:00 Completed [facility] Hepatitis A Adult 2011-08-29 00:00:00 Completed [facility] Hepatitis A Adult 2011-08-29 00:00:00 Completed [facility] Hepatitis A Adult 2011-08-29 00:00:00 Completed [facility] Hepatitis A Adult 2011-08-29 00:00:00 Completed [facility] Hepatitis A Adult 2011-08-29 00:00:00 Completed [facility] Meningococcal Polysaccharide (groups A, C, Y and W-135) conjugate vaccine (MCV4P) 2009-02-28 00:00:00 Completed [facility] TDAP 2009-02-28 00:00:00 Completed [facility] Varicella (varivax)(chicken pox) 2009-02-28 00:00:00 Completed [facility] HEPATITIS A 2009-02-28 00:00:00 Completed [facility] Meningococcal Polysaccharide (groups A, C, Y and W-135) conjugate vaccine (MCV4P) 2009-02-28 00:00:00 Completed [facility] TDAP 2009-02-28 00:00:00 Completed [facility] Varicella (varivax)(chicken pox) 2009-02-28 00:00:00 Completed [facility] HEPATITIS A 2009-02-28 00:00:00 Completed [facility] Meningococcal Polysaccharide (groups A, C, Y and W-135) conjugate vaccine (MCV4P) 2009-02-28 00:00:00 Completed [facility] TDAP 2009-02-28 00:00:00 Completed [facility] Varicella (varivax)(chicken pox) 2009-02-28 00:00:00 Completed [facility] HEPATITIS A 2009-02-28 00:00:00 Completed [facility] Meningococcal Polysaccharide (groups A, C, Y and W-135) conjugate vaccine (MCV4P) 2009-02-28 00:00:00 Completed [facility] TDAP 2009-02-28 00:00:00 Completed [facility] Varicella (varivax)(chicken pox) 2009-02-28 00:00:00 Completed [facility] HEPATITIS A 2009-02-28 00:00:00 Completed [facility] Meningococcal Polysaccharide (groups A, C, Y and W-135) conjugate vaccine (MCV4P) 2009-02-28 00:00:00 Completed [facility] TDAP 2009-02-28 00:00:00 Completed [facility] Varicella (varivax)(chicken pox) 2009-02-28 00:00:00 Completed [facility] HEPATITIS A 2009-02-28 00:00:00 Completed [facility] Meningococcal Polysaccharide (groups A, C, Y and W-135) conjugate vaccine (MCV4P) 2009-02-28 00:00:00 Completed [facility] TDAP 2009-02-28 00:00:00 Completed [facility] Varicella (varivax)(chicken pox) 2009-02-28 00:00:00 Completed [facility] HEPATITIS A 2009-02-28 00:00:00 Completed [facility] Meningococcal Polysaccharide (groups A, C, Y and W-135) conjugate vaccine (MCV4P) 2009-02-28 00:00:00 Completed [facility] TDAP 2009-02-28 00:00:00 Completed [facility] Varicella (varivax)(chicken pox) 2009-02-28 00:00:00 Completed [facility] HEPATITIS A 2009-02-28 00:00:00 Completed [facility] Meningococcal Polysaccharide (groups A, C, Y and W-135) conjugate vaccine (MCV4P) 2009-02-28 00:00:00 Completed [facility] TDAP 2009-02-28 00:00:00 Completed [facility] Varicella (varivax)(chicken pox) 2009-02-28 00:00:00 Completed [facility] HEPATITIS A 2009-02-28 00:00:00 Completed [facility] Meningococcal Polysaccharide (groups A, C, Y and W-135) conjugate vaccine (MCV4P) 2009-02-28 00:00:00 Completed [facility] TDAP 2009-02-28 00:00:00 Completed [facility] Varicella (varivax)(chicken pox) 2009-02-28 00:00:00 Completed [facility] HEPATITIS A 2009-02-28 00:00:00 Completed [facility] Meningococcal Polysaccharide (groups A, C, Y and W-135) conjugate vaccine (MCV4P) 2009-02-28 00:00:00 Completed [facility] TDAP 2009-02-28 00:00:00 Completed [facility] Varicella (varivax)(chicken pox) 2009-02-28 00:00:00 Completed [facility] HEPATITIS A 2009-02-28 00:00:00 Completed [facility] Meningococcal Polysaccharide (groups A, C, Y and W-135) conjugate vaccine (MCV4P) 2009-02-28 00:00:00 Completed [facility] TDAP 2009-02-28 00:00:00 Completed [facility] Varicella (varivax)(chicken pox) 2009-02-28 00:00:00 Completed [facility] HEPATITIS A 2009-02-28 00:00:00 Completed [facility] Meningococcal Polysaccharide (groups A, C, Y and W-135) conjugate vaccine (MCV4P) 2009-02-28 00:00:00 Completed [facility] TDAP 2009-02-28 00:00:00 Completed [facility] Varicella (varivax)(chicken pox) 2009-02-28 00:00:00 Completed [facility] HEPATITIS A 2009-02-28 00:00:00 Completed [facility] Meningococcal Polysaccharide (groups A, C, Y and W-135) conjugate vaccine (MCV4P) 2009-02-28 00:00:00 Completed [facility] TDAP 2009-02-28 00:00:00 Completed [facility] Varicella (varivax)(chicken pox) 2009-02-28 00:00:00 Completed [facility] HEPATITIS A 2009-02-28 00:00:00 Completed [facility] Meningococcal Polysaccharide (groups A, C, Y and W-135) conjugate vaccine (MCV4P) 2009-02-28 00:00:00 Completed [facility] TDAP 2009-02-28 00:00:00 Completed [facility] Varicella (varivax)(chicken pox) 2009-02-28 00:00:00 Completed [facility] HEPATITIS A 2009-02-28 00:00:00 Completed [facility] Meningococcal Polysaccharide (groups A, C, Y and W-135) conjugate vaccine (MCV4P) 2009-02-28 00:00:00 Completed [facility] TDAP 2009-02-28 00:00:00 Completed [facility] Varicella (varivax)(chicken pox) 2009-02-28 00:00:00 Completed [facility] HEPATITIS A 2009-02-28 00:00:00 Completed [facility] Meningococcal Polysaccharide (groups A, C, Y and W-135) conjugate vaccine (MCV4P) 2009-02-28 00:00:00 Completed [facility] TDAP 2009-02-28 00:00:00 Completed [facility] Varicella (varivax)(chicken pox) 2009-02-28 00:00:00 Completed [facility] HEPATITIS A 2009-02-28 00:00:00 Completed [facility] Meningococcal Polysaccharide (groups A, C, Y and W-135) conjugate vaccine (MCV4P) 2009-02-28 00:00:00 Completed [facility] TDAP 2009-02-28 00:00:00 Completed [facility] Varicella (varivax)(chicken pox) 2009-02-28 00:00:00 Completed [facility] HEPATITIS A 2009-02-28 00:00:00 Completed [facility] Meningococcal Polysaccharide (groups A, C, Y and W-135) conjugate vaccine (MCV4P) 2009-02-28 00:00:00 Completed [facility] TDAP 2009-02-28 00:00:00 Completed [facility] Varicella (varivax)(chicken pox) 2009-02-28 00:00:00 Completed [facility] HEPATITIS A 2009-02-28 00:00:00 Completed [facility] Meningococcal Polysaccharide (groups A, C, Y and W-135) conjugate vaccine (MCV4P) 2009-02-28 00:00:00 Completed [facility] TDAP 2009-02-28 00:00:00 Completed [facility] Varicella (varivax)(chicken pox) 2009-02-28 00:00:00 Completed [facility] HEPATITIS A 2009-02-28 00:00:00 Completed [facility] Meningococcal Polysaccharide (groups A, C, Y and W-135) conjugate vaccine (MCV4P) 2009-02-28 00:00:00 Completed [facility] TDAP 2009-02-28 00:00:00 Completed [facility] Varicella (varivax)(chicken pox) 2009-02-28 00:00:00 Completed [facility] HEPATITIS A 2009-02-28 00:00:00 Completed [facility] Meningococcal Polysaccharide (groups A, C, Y and W-135) conjugate vaccine (MCV4P) 2009-02-28 00:00:00 Completed [facility] TDAP 2009-02-28 00:00:00 Completed [facility] Varicella (varivax)(chicken pox) 2009-02-28 00:00:00 Completed [facility] HEPATITIS A 2009-02-28 00:00:00 Completed [facility] Meningococcal Polysaccharide (groups A, C, Y and W-135) conjugate vaccine (MCV4P) 2009-02-28 00:00:00 Completed [facility] TDAP 2009-02-28 00:00:00 Completed [facility] Varicella (varivax)(chicken pox) 2009-02-28 00:00:00 Completed [facility] HEPATITIS A 2009-02-28 00:00:00 Completed [facility] Meningococcal Polysaccharide (groups A, C, Y and W-135) conjugate vaccine (MCV4P) 2009-02-28 00:00:00 Completed [facility] TDAP 2009-02-28 00:00:00 Completed [facility] Varicella (varivax)(chicken pox) 2009-02-28 00:00:00 Completed [facility] HEPATITIS A 2009-02-28 00:00:00 Completed [facility] Meningococcal Polysaccharide (groups A, C, Y and W-135) conjugate vaccine (MCV4P) 2009-02-28 00:00:00 Completed [facility] TDAP 2009-02-28 00:00:00 Completed [facility] Varicella (varivax)(chicken pox) 2009-02-28 00:00:00 Completed [facility] HEPATITIS A 2009-02-28 00:00:00 Completed [facility] Meningococcal Polysaccharide (groups A, C, Y and W-135) conjugate vaccine (MCV4P) 2009-02-28 00:00:00 Completed [facility] TDAP 2009-02-28 00:00:00 Completed [facility] Varicella (varivax)(chicken pox) 2009-02-28 00:00:00 Completed [facility] HEPATITIS A 2009-02-28 00:00:00 Completed [facility] Meningococcal Polysaccharide (groups A, C, Y and W-135) conjugate vaccine (MCV4P) 2009-02-28 00:00:00 Completed [facility] TDAP 2009-02-28 00:00:00 Completed [facility] Varicella (varivax)(chicken pox) 2009-02-28 00:00:00 Completed [facility] HEPATITIS A 2009-02-28 00:00:00 Completed [facility] Meningococcal Polysaccharide (groups A, C, Y and W-135) conjugate vaccine (MCV4P) 2009-02-28 00:00:00 Completed [facility] TDAP 2009-02-28 00:00:00 Completed [facility] Varicella (varivax)(chicken pox) 2009-02-28 00:00:00 Completed [facility] HEPATITIS A 2009-02-28 00:00:00 Completed [facility] Meningococcal Polysaccharide (groups A, C, Y and W-135) conjugate vaccine (MCV4P) 2009-02-28 00:00:00 Completed [facility] TDAP 2009-02-28 00:00:00 Completed [facility] Varicella (varivax)(chicken pox) 2009-02-28 00:00:00 Completed [facility] HEPATITIS A 2009-02-28 00:00:00 Completed [facility] Poliovirus, Live, Oral, Trivalent 1999-04-26 00:00:00 Completed [facility] DTaP, Unspecified Formulation 1999-04-26 00:00:00 Completed [facility] Hep B, Adol or Pedi Dosage 1999-04-26 00:00:00 Completed [facility] Poliovirus, Live, Oral, Trivalent 1999-04-26 00:00:00 Completed [facility] DTaP, Unspecified Formulation 1999-04-26 00:00:00 Completed [facility] Hep B, Adol or Pedi Dosage 1999-04-26 00:00:00 Completed [facility] Poliovirus, Live, Oral, Trivalent 1999-04-26 00:00:00 Completed [facility] DTaP, Unspecified Formulation 1999-04-26 00:00:00 Completed [facility] Hep B, Adol or Pedi Dosage 1999-04-26 00:00:00 Completed [facility] Poliovirus, Live, Oral, Trivalent 1999-04-26 00:00:00 Completed [facility] DTaP, Unspecified Formulation 1999-04-26 00:00:00 Completed [facility] Hep B, Adol or Pedi Dosage 1999-04-26 00:00:00 Completed [facility] Poliovirus, Live, Oral, Trivalent 1999-04-26 00:00:00 Completed [facility] DTaP, Unspecified Formulation 1999-04-26 00:00:00 Completed [facility] Hep B, Adol or Pedi Dosage 1999-04-26 00:00:00 Completed [facility] Poliovirus, Live, Oral, Trivalent 1999-04-26 00:00:00 Completed [facility] DTaP, Unspecified Formulation 1999-04-26 00:00:00 Completed [facility] Hep B, Adol or Pedi Dosage 1999-04-26 00:00:00 Completed [facility] Poliovirus, Live, Oral, Trivalent 1999-04-26 00:00:00 Completed [facility] DTaP, Unspecified Formulation 1999-04-26 00:00:00 Completed [facility] Hep B, Adol or Pedi Dosage 1999-04-26 00:00:00 Completed [facility] Poliovirus, Live, Oral, Trivalent 1999-04-26 00:00:00 Completed [facility] DTaP, Unspecified Formulation 1999-04-26 00:00:00 Completed [facility] Hep B, Adol or Pedi Dosage 1999-04-26 00:00:00 Completed [facility] Poliovirus, Live, Oral, Trivalent 1999-04-26 00:00:00 Completed [facility] DTaP, Unspecified Formulation 1999-04-26 00:00:00 Completed [facility] Hep B, Adol or Pedi Dosage 1999-04-26 00:00:00 Completed [facility] Poliovirus, Live, Oral, Trivalent 1999-04-26 00:00:00 Completed [facility] DTaP, Unspecified Formulation 1999-04-26 00:00:00 Completed [facility] Hep B, Adol or Pedi Dosage 1999-04-26 00:00:00 Completed [facility] Poliovirus, Live, Oral, Trivalent 1999-04-26 00:00:00 Completed [facility] DTaP, Unspecified Formulation 1999-04-26 00:00:00 Completed [facility] Hep B, Adol or Pedi Dosage 1999-04-26 00:00:00 Completed [facility] Poliovirus, Live, Oral, Trivalent 1999-04-26 00:00:00 Completed [facility] DTaP, Unspecified Formulation 1999-04-26 00:00:00 Completed [facility] Hep B, Adol or Pedi Dosage 1999-04-26 00:00:00 Completed [facility] Poliovirus, Live, Oral, Trivalent 1999-04-26 00:00:00 Completed [facility] DTaP, Unspecified Formulation 1999-04-26 00:00:00 Completed [facility] Hep B, Adol or Pedi Dosage 1999-04-26 00:00:00 Completed [facility] Poliovirus, Live, Oral, Trivalent 1999-04-26 00:00:00 Completed [facility] DTaP, Unspecified Formulation 1999-04-26 00:00:00 Completed [facility] Hep B, Adol or Pedi Dosage 1999-04-26 00:00:00 Completed [facility] Poliovirus, Live, Oral, Trivalent 1999-04-26 00:00:00 Completed [facility] DTaP, Unspecified Formulation 1999-04-26 00:00:00 Completed [facility] Hep B, Adol or Pedi Dosage 1999-04-26 00:00:00 Completed [facility] Poliovirus, Live, Oral, Trivalent 1999-04-26 00:00:00 Completed [facility] DTaP, Unspecified Formulation 1999-04-26 00:00:00 Completed [facility] Hep B, Adol or Pedi Dosage 1999-04-26 00:00:00 Completed [facility] Poliovirus, Live, Oral, Trivalent 1999-04-26 00:00:00 Completed [facility] DTaP, Unspecified Formulation 1999-04-26 00:00:00 Completed [facility] Hep B, Adol or Pedi Dosage 1999-04-26 00:00:00 Completed [facility] Poliovirus, Live, Oral, Trivalent 1999-04-26 00:00:00 Completed [facility] DTaP, Unspecified Formulation 1999-04-26 00:00:00 Completed [facility] Hep B, Adol or Pedi Dosage 1999-04-26 00:00:00 Completed [facility] Poliovirus, Live, Oral, Trivalent 1999-04-26 00:00:00 Completed [facility] DTaP, Unspecified Formulation 1999-04-26 00:00:00 Completed [facility] Hep B, Adol or Pedi Dosage 1999-04-26 00:00:00 Completed [facility] Poliovirus, Live, Oral, Trivalent 1999-04-26 00:00:00 Completed [facility] DTaP, Unspecified Formulation 1999-04-26 00:00:00 Completed [facility] Hep B, Adol or Pedi Dosage 1999-04-26 00:00:00 Completed [facility] Poliovirus, Live, Oral, Trivalent 1999-04-26 00:00:00 Completed [facility] DTaP, Unspecified Formulation 1999-04-26 00:00:00 Completed [facility] Hep B, Adol or Pedi Dosage 1999-04-26 00:00:00 Completed [facility] Poliovirus, Live, Oral, Trivalent 1999-04-26 00:00:00 Completed [facility] DTaP, Unspecified Formulation 1999-04-26 00:00:00 Completed [facility] Hep B, Adol or Pedi Dosage 1999-04-26 00:00:00 Completed [facility] Poliovirus, Live, Oral, Trivalent 1999-04-26 00:00:00 Completed [facility] DTaP, Unspecified Formulation 1999-04-26 00:00:00 Completed [facility] Hep B, Adol or Pedi Dosage 1999-04-26 00:00:00 Completed [facility] Poliovirus, Live, Oral, Trivalent 1999-04-26 00:00:00 Completed [facility] DTaP, Unspecified Formulation 1999-04-26 00:00:00 Completed [facility] Hep B, Adol or Pedi Dosage 1999-04-26 00:00:00 Completed [facility] Poliovirus, Live, Oral, Trivalent 1999-04-26 00:00:00 Completed [facility] DTaP, Unspecified Formulation 1999-04-26 00:00:00 Completed [facility] Hep B, Adol or Pedi Dosage 1999-04-26 00:00:00 Completed [facility] Poliovirus, Live, Oral, Trivalent 1999-04-26 00:00:00 Completed [facility] DTaP, Unspecified Formulation 1999-04-26 00:00:00 Completed [facility] Hep B, Adol or Pedi Dosage 1999-04-26 00:00:00 Completed [facility] Poliovirus, Live, Oral, Trivalent 1999-04-26 00:00:00 Completed [facility] DTaP, Unspecified Formulation 1999-04-26 00:00:00 Completed [facility] Hep B, Adol or Pedi Dosage 1999-04-26 00:00:00 Completed [facility] Poliovirus, Live, Oral, Trivalent 1999-04-26 00:00:00 Completed [facility] DTaP, Unspecified Formulation 1999-04-26 00:00:00 Completed [facility] Hep B, Adol or Pedi Dosage 1999-04-26 00:00:00 Completed [facility] DTaP, Unspecified Formulation 1998-05-04 00:00:00 Completed [facility] DTaP, Unspecified Formulation 1998-05-04 00:00:00 Completed [facility] DTaP, Unspecified Formulation 1998-05-04 00:00:00 Completed [facility] DTaP, Unspecified Formulation 1998-05-04 00:00:00 Completed [facility] DTaP, Unspecified Formulation 1998-05-04 00:00:00 Completed [facility] DTaP, Unspecified Formulation 1998-05-04 00:00:00 Completed [facility] DTaP, Unspecified Formulation 1998-05-04 00:00:00 Completed [facility] DTaP, Unspecified Formulation 1998-05-04 00:00:00 Completed [facility] DTaP, Unspecified Formulation 1998-05-04 00:00:00 Completed [facility] DTaP, Unspecified Formulation 1998-05-04 00:00:00 Completed [facility] DTaP, Unspecified Formulation 1998-05-04 00:00:00 Completed [facility] DTaP, Unspecified Formulation 1998-05-04 00:00:00 Completed [facility] DTaP, Unspecified Formulation 1998-05-04 00:00:00 Completed [facility] DTaP, Unspecified Formulation 1998-05-04 00:00:00 Completed [facility] DTaP, Unspecified Formulation 1998-05-04 00:00:00 Completed [facility] DTaP, Unspecified Formulation 1998-05-04 00:00:00 Completed [facility] DTaP, Unspecified Formulation 1998-05-04 00:00:00 Completed [facility] DTaP, Unspecified Formulation 1998-05-04 00:00:00 Completed [facility] DTaP, Unspecified Formulation 1998-05-04 00:00:00 Completed [facility] DTaP, Unspecified Formulation 1998-05-04 00:00:00 Completed [facility] DTaP, Unspecified Formulation 1998-05-04 00:00:00 Completed [facility] DTaP, Unspecified Formulation 1998-05-04 00:00:00 Completed [facility] DTaP, Unspecified Formulation 1998-05-04 00:00:00 Completed [facility] DTaP, Unspecified Formulation 1998-05-04 00:00:00 Completed [facility] DTaP, Unspecified Formulation 1998-05-04 00:00:00 Completed [facility] DTaP, Unspecified Formulation 1998-05-04 00:00:00 Completed [facility] DTaP, Unspecified Formulation 1998-05-04 00:00:00 Completed [facility] DTaP, Unspecified Formulation 1998-05-04 00:00:00 Completed [facility] Haemophilus influenzae type b vaccine, conjugate unspecified formulation 1998-03-03 00:00:00 Completed [facility] MMR 1998-03-03 00:00:00 Completed [facility] Poliovirus, Live, Oral, Trivalent 1998-03-03 00:00:00 Completed [facility] DTaP, Unspecified Formulation 1998-03-03 00:00:00 Completed [facility] Hep B, Adol or Pedi Dosage 1998-03-03 00:00:00 Completed [facility] Haemophilus influenzae type b vaccine, conjugate unspecified formulation 1998-03-03 00:00:00 Completed [facility] MMR 1998-03-03 00:00:00 Completed [facility] Poliovirus, Live, Oral, Trivalent 1998-03-03 00:00:00 Completed [facility] DTaP, Unspecified Formulation 1998-03-03 00:00:00 Completed [facility] Hep B, Adol or Pedi Dosage 1998-03-03 00:00:00 Completed [facility] Haemophilus influenzae type b vaccine, conjugate unspecified formulation 1998-03-03 00:00:00 Completed [facility] MMR 1998-03-03 00:00:00 Completed [facility] Poliovirus, Live, Oral, Trivalent 1998-03-03 00:00:00 Completed [facility] DTaP, Unspecified Formulation 1998-03-03 00:00:00 Completed [facility] Hep B, Adol or Pedi Dosage 1998-03-03 00:00:00 Completed [facility] Haemophilus influenzae type b vaccine, conjugate unspecified formulation 1998-03-03 00:00:00 Completed [facility] MMR 1998-03-03 00:00:00 Completed [facility] Poliovirus, Live, Oral, Trivalent 1998-03-03 00:00:00 Completed [facility] DTaP, Unspecified Formulation 1998-03-03 00:00:00 Completed [facility] Hep B, Adol or Pedi Dosage 1998-03-03 00:00:00 Completed [facility] Haemophilus influenzae type b vaccine, conjugate unspecified formulation 1998-03-03 00:00:00 Completed [facility] MMR 1998-03-03 00:00:00 Completed [facility] Poliovirus, Live, Oral, Trivalent 1998-03-03 00:00:00 Completed [facility] DTaP, Unspecified Formulation 1998-03-03 00:00:00 Completed [facility] Hep B, Adol or Pedi Dosage 1998-03-03 00:00:00 Completed [facility] Haemophilus influenzae type b vaccine, conjugate unspecified formulation 1998-03-03 00:00:00 Completed [facility] MMR 1998-03-03 00:00:00 Completed [facility] Poliovirus, Live, Oral, Trivalent 1998-03-03 00:00:00 Completed [facility] DTaP, Unspecified Formulation 1998-03-03 00:00:00 Completed [facility] Hep B, Adol or Pedi Dosage 1998-03-03 00:00:00 Completed [facility] Haemophilus influenzae type b vaccine, conjugate unspecified formulation 1998-03-03 00:00:00 Completed [facility] MMR 1998-03-03 00:00:00 Completed [facility] Poliovirus, Live, Oral, Trivalent 1998-03-03 00:00:00 Completed [facility] DTaP, Unspecified Formulation 1998-03-03 00:00:00 Completed [facility] Hep B, Adol or Pedi Dosage 1998-03-03 00:00:00 Completed [facility] Haemophilus influenzae type b vaccine, conjugate unspecified formulation 1998-03-03 00:00:00 Completed [facility] MMR 1998-03-03 00:00:00 Completed [facility] Poliovirus, Live, Oral, Trivalent 1998-03-03 00:00:00 Completed [facility] DTaP, Unspecified Formulation 1998-03-03 00:00:00 Completed [facility] Hep B, Adol or Pedi Dosage 1998-03-03 00:00:00 Completed [facility] Haemophilus influenzae type b vaccine, conjugate unspecified formulation 1998-03-03 00:00:00 Completed [facility] MMR 1998-03-03 00:00:00 Completed [facility] Poliovirus, Live, Oral, Trivalent 1998-03-03 00:00:00 Completed [facility] DTaP, Unspecified Formulation 1998-03-03 00:00:00 Completed [facility] Hep B, Adol or Pedi Dosage 1998-03-03 00:00:00 Completed [facility] Haemophilus influenzae type b vaccine, conjugate unspecified formulation 1998-03-03 00:00:00 Completed [facility] MMR 1998-03-03 00:00:00 Completed [facility] Poliovirus, Live, Oral, Trivalent 1998-03-03 00:00:00 Completed [facility] DTaP, Unspecified Formulation 1998-03-03 00:00:00 Completed [facility] Hep B, Adol or Pedi Dosage 1998-03-03 00:00:00 Completed [facility] Haemophilus influenzae type b vaccine, conjugate unspecified formulation 1998-03-03 00:00:00 Completed [facility] MMR 1998-03-03 00:00:00 Completed [facility] Poliovirus, Live, Oral, Trivalent 1998-03-03 00:00:00 Completed [facility] DTaP, Unspecified Formulation 1998-03-03 00:00:00 Completed [facility] Hep B, Adol or Pedi Dosage 1998-03-03 00:00:00 Completed [facility] Haemophilus influenzae type b vaccine, conjugate unspecified formulation 1998-03-03 00:00:00 Completed [facility] MMR 1998-03-03 00:00:00 Completed [facility] Poliovirus, Live, Oral, Trivalent 1998-03-03 00:00:00 Completed [facility] DTaP, Unspecified Formulation 1998-03-03 00:00:00 Completed [facility] Hep B, Adol or Pedi Dosage 1998-03-03 00:00:00 Completed [facility] Haemophilus influenzae type b vaccine, conjugate unspecified formulation 1998-03-03 00:00:00 Completed [facility] MMR 1998-03-03 00:00:00 Completed [facility] Poliovirus, Live, Oral, Trivalent 1998-03-03 00:00:00 Completed [facility] DTaP, Unspecified Formulation 1998-03-03 00:00:00 Completed [facility] Hep B, Adol or Pedi Dosage 1998-03-03 00:00:00 Completed [facility] Haemophilus influenzae type b vaccine, conjugate unspecified formulation 1998-03-03 00:00:00 Completed [facility] MMR 1998-03-03 00:00:00 Completed [facility] Poliovirus, Live, Oral, Trivalent 1998-03-03 00:00:00 Completed [facility] DTaP, Unspecified Formulation 1998-03-03 00:00:00 Completed [facility] Hep B, Adol or Pedi Dosage 1998-03-03 00:00:00 Completed [facility] Haemophilus influenzae type b vaccine, conjugate unspecified formulation 1998-03-03 00:00:00 Completed [facility] MMR 1998-03-03 00:00:00 Completed [facility] Poliovirus, Live, Oral, Trivalent 1998-03-03 00:00:00 Completed [facility] DTaP, Unspecified Formulation 1998-03-03 00:00:00 Completed [facility] Hep B, Adol or Pedi Dosage 1998-03-03 00:00:00 Completed [facility] Haemophilus influenzae type b vaccine, conjugate unspecified formulation 1998-03-03 00:00:00 Completed [facility] MMR 1998-03-03 00:00:00 Completed [facility] Poliovirus, Live, Oral, Trivalent 1998-03-03 00:00:00 Completed [facility] DTaP, Unspecified Formulation 1998-03-03 00:00:00 Completed [facility] Hep B, Adol or Pedi Dosage 1998-03-03 00:00:00 Completed [facility] Haemophilus influenzae type b vaccine, conjugate unspecified formulation 1998-03-03 00:00:00 Completed [facility] MMR 1998-03-03 00:00:00 Completed [facility] Poliovirus, Live, Oral, Trivalent 1998-03-03 00:00:00 Completed [facility] DTaP, Unspecified Formulation 1998-03-03 00:00:00 Completed [facility] Hep B, Adol or Pedi Dosage 1998-03-03 00:00:00 Completed [facility] Haemophilus influenzae type b vaccine, conjugate unspecified formulation 1998-03-03 00:00:00 Completed [facility] MMR 1998-03-03 00:00:00 Completed [facility] Poliovirus, Live, Oral, Trivalent 1998-03-03 00:00:00 Completed [facility] DTaP, Unspecified Formulation 1998-03-03 00:00:00 Completed [facility] Hep B, Adol or Pedi Dosage 1998-03-03 00:00:00 Completed [facility] Haemophilus influenzae type b vaccine, conjugate unspecified formulation 1998-03-03 00:00:00 Completed [facility] MMR 1998-03-03 00:00:00 Completed [facility] Poliovirus, Live, Oral, Trivalent 1998-03-03 00:00:00 Completed [facility] DTaP, Unspecified Formulation 1998-03-03 00:00:00 Completed [facility] Hep B, Adol or Pedi Dosage 1998-03-03 00:00:00 Completed [facility] Haemophilus influenzae type b vaccine, conjugate unspecified formulation 1998-03-03 00:00:00 Completed [facility] MMR 1998-03-03 00:00:00 Completed [facility] Poliovirus, Live, Oral, Trivalent 1998-03-03 00:00:00 Completed [facility] DTaP, Unspecified Formulation 1998-03-03 00:00:00 Completed [facility] Hep B, Adol or Pedi Dosage 1998-03-03 00:00:00 Completed [facility] Haemophilus influenzae type b vaccine, conjugate unspecified formulation 1998-03-03 00:00:00 Completed [facility] MMR 1998-03-03 00:00:00 Completed [facility] Poliovirus, Live, Oral, Trivalent 1998-03-03 00:00:00 Completed [facility] DTaP, Unspecified Formulation 1998-03-03 00:00:00 Completed [facility] Hep B, Adol or Pedi Dosage 1998-03-03 00:00:00 Completed [facility] Haemophilus influenzae type b vaccine, conjugate unspecified formulation 1998-03-03 00:00:00 Completed [facility] MMR 1998-03-03 00:00:00 Completed [facility] Poliovirus, Live, Oral, Trivalent 1998-03-03 00:00:00 Completed [facility] DTaP, Unspecified Formulation 1998-03-03 00:00:00 Completed [facility] Hep B, Adol or Pedi Dosage 1998-03-03 00:00:00 Completed [facility] Haemophilus influenzae type b vaccine, conjugate unspecified formulation 1998-03-03 00:00:00 Completed [facility] MMR 1998-03-03 00:00:00 Completed [facility] Poliovirus, Live, Oral, Trivalent 1998-03-03 00:00:00 Completed [facility] DTaP, Unspecified Formulation 1998-03-03 00:00:00 Completed [facility] Hep B, Adol or Pedi Dosage 1998-03-03 00:00:00 Completed [facility] Haemophilus influenzae type b vaccine, conjugate unspecified formulation 1998-03-03 00:00:00 Completed [facility] MMR 1998-03-03 00:00:00 Completed [facility] Poliovirus, Live, Oral, Trivalent 1998-03-03 00:00:00 Completed [facility] DTaP, Unspecified Formulation 1998-03-03 00:00:00 Completed [facility] Hep B, Adol or Pedi Dosage 1998-03-03 00:00:00 Completed [facility] Haemophilus influenzae type b vaccine, conjugate unspecified formulation 1998-03-03 00:00:00 Completed [facility] MMR 1998-03-03 00:00:00 Completed [facility] Poliovirus, Live, Oral, Trivalent 1998-03-03 00:00:00 Completed [facility] DTaP, Unspecified Formulation 1998-03-03 00:00:00 Completed [facility] Hep B, Adol or Pedi Dosage 1998-03-03 00:00:00 Completed [facility] Haemophilus influenzae type b vaccine, conjugate unspecified formulation 1998-03-03 00:00:00 Completed [facility] MMR 1998-03-03 00:00:00 Completed [facility] Poliovirus, Live, Oral, Trivalent 1998-03-03 00:00:00 Completed [facility] DTaP, Unspecified Formulation 1998-03-03 00:00:00 Completed [facility] Hep B, Adol or Pedi Dosage 1998-03-03 00:00:00 Completed [facility] Haemophilus influenzae type b vaccine, conjugate unspecified formulation 1998-03-03 00:00:00 Completed [facility] MMR 1998-03-03 00:00:00 Completed [facility] Poliovirus, Live, Oral, Trivalent 1998-03-03 00:00:00 Completed [facility] DTaP, Unspecified Formulation 1998-03-03 00:00:00 Completed [facility] Hep B, Adol or Pedi Dosage 1998-03-03 00:00:00 Completed [facility] Haemophilus influenzae type b vaccine, conjugate unspecified formulation 1998-03-03 00:00:00 Completed [facility] MMR 1998-03-03 00:00:00 Completed [facility] Poliovirus, Live, Oral, Trivalent 1998-03-03 00:00:00 Completed [facility] DTaP, Unspecified Formulation 1998-03-03 00:00:00 Completed [facility] Hep B, Adol or Pedi Dosage 1998-03-03 00:00:00 Completed [facility] Haemophilus influenzae type b vaccine, conjugate unspecified formulation 1998-01-25 00:00:00 Completed [facility] MMR 1998-01-25 00:00:00 Completed [facility] Poliovirus, Live, Oral, Trivalent 1998-01-25 00:00:00 Completed [facility] DTaP, Unspecified Formulation 1998-01-25 00:00:00 Completed [facility] Hep B, Adol or Pedi Dosage 1998-01-25 00:00:00 Completed [facility] Haemophilus influenzae type b vaccine, conjugate unspecified formulation 1998-01-25 00:00:00 Completed [facility] MMR 1998-01-25 00:00:00 Completed [facility] Poliovirus, Live, Oral, Trivalent 1998-01-25 00:00:00 Completed [facility] DTaP, Unspecified Formulation 1998-01-25 00:00:00 Completed [facility] Hep B, Adol or Pedi Dosage 1998-01-25 00:00:00 Completed [facility] Haemophilus influenzae type b vaccine, conjugate unspecified formulation 1998-01-25 00:00:00 Completed [facility] MMR 1998-01-25 00:00:00 Completed [facility] Poliovirus, Live, Oral, Trivalent 1998-01-25 00:00:00 Completed [facility] DTaP, Unspecified Formulation 1998-01-25 00:00:00 Completed [facility] Hep B, Adol or Pedi Dosage 1998-01-25 00:00:00 Completed [facility] Haemophilus influenzae type b vaccine, conjugate unspecified formulation 1998-01-25 00:00:00 Completed [facility] MMR 1998-01-25 00:00:00 Completed [facility] Poliovirus, Live, Oral, Trivalent 1998-01-25 00:00:00 Completed [facility] DTaP, Unspecified Formulation 1998-01-25 00:00:00 Completed [facility] Hep B, Adol or Pedi Dosage 1998-01-25 00:00:00 Completed [facility] Haemophilus influenzae type b vaccine, conjugate unspecified formulation 1998-01-25 00:00:00 Completed [facility] MMR 1998-01-25 00:00:00 Completed [facility] Poliovirus, Live, Oral, Trivalent 1998-01-25 00:00:00 Completed [facility] DTaP, Unspecified Formulation 1998-01-25 00:00:00 Completed [facility] Hep B, Adol or Pedi Dosage 1998-01-25 00:00:00 Completed [facility] Haemophilus influenzae type b vaccine, conjugate unspecified formulation 1998-01-25 00:00:00 Completed [facility] MMR 1998-01-25 00:00:00 Completed [facility] Poliovirus, Live, Oral, Trivalent 1998-01-25 00:00:00 Completed [facility] DTaP, Unspecified Formulation 1998-01-25 00:00:00 Completed [facility] Hep B, Adol or Pedi Dosage 1998-01-25 00:00:00 Completed [facility] Haemophilus influenzae type b vaccine, conjugate unspecified formulation 1998-01-25 00:00:00 Completed [facility] MMR 1998-01-25 00:00:00 Completed [facility] Poliovirus, Live, Oral, Trivalent 1998-01-25 00:00:00 Completed [facility] DTaP, Unspecified Formulation 1998-01-25 00:00:00 Completed [facility] [facility] Hep B, Adol or Pedi Dosage 1998-01-25 00:00:00 Completed [facility] Haemophilus influenzae type b vaccine, conjugate unspecified formulation 1998-01-25 00:00:00 Completed [facility] MMR 1998-01-25 00:00:00 Completed [facility] Poliovirus, Live, Oral, Trivalent 1998-01-25 00:00:00 Completed [facility] DTaP, Unspecified Formulation 1998-01-25 00:00:00 Completed [facility] Hep B, Adol or Pedi Dosage 1998-01-25 00:00:00 Completed [facility] Haemophilus influenzae type b vaccine, conjugate unspecified formulation 1998-01-25 00:00:00 Completed [facility] MMR 1998-01-25 00:00:00 Completed [facility] Poliovirus, Live, Oral, Trivalent 1998-01-25 00:00:00 Completed [facility] DTaP, Unspecified Formulation 1998-01-25 00:00:00 Completed [facility] Hep B, Adol or Pedi Dosage 1998-01-25 00:00:00 Completed [facility] Haemophilus influenzae type b vaccine, conjugate unspecified formulation 1998-01-25 00:00:00 Completed [facility] MMR 1998-01-25 00:00:00 Completed [facility] Poliovirus, Live, Oral, Trivalent 1998-01-25 00:00:00 Completed [facility] DTaP, Unspecified Formulation 1998-01-25 00:00:00 Completed [facility] Hep B, Adol or Pedi Dosage 1998-01-25 00:00:00 Completed [facility] Haemophilus influenzae type b vaccine, conjugate unspecified formulation 1998-01-25 00:00:00 Completed [facility] MMR 1998-01-25 00:00:00 Completed [facility] Poliovirus, Live, Oral, Trivalent 1998-01-25 00:00:00 Completed [facility] DTaP, Unspecified Formulation 1998-01-25 00:00:00 Completed [facility] Hep B, Adol or Pedi Dosage 1998-01-25 00:00:00 Completed [facility] Haemophilus influenzae type b vaccine, conjugate unspecified formulation 1998-01-25 00:00:00 Completed [facility] MMR 1998-01-25 00:00:00 Completed [facility] Poliovirus, Live, Oral, Trivalent 1998-01-25 00:00:00 Completed [facility] DTaP, Unspecified Formulation 1998-01-25 00:00:00 Completed [facility] Hep B, Adol or Pedi Dosage 1998-01-25 00:00:00 Completed [facility] Haemophilus influenzae type b vaccine, conjugate unspecified formulation 1998-01-25 00:00:00 Completed [facility] MMR 1998-01-25 00:00:00 Completed [facility] Poliovirus, Live, Oral, Trivalent 1998-01-25 00:00:00 Completed [facility] DTaP, Unspecified Formulation 1998-01-25 00:00:00 Completed [facility] Hep B, Adol or Pedi Dosage 1998-01-25 00:00:00 Completed [facility] Haemophilus influenzae type b vaccine, conjugate unspecified formulation 1998-01-25 00:00:00 Completed [facility] MMR 1998-01-25 00:00:00 Completed [facility] Poliovirus, Live, Oral, Trivalent 1998-01-25 00:00:00 Completed [facility] DTaP, Unspecified Formulation 1998-01-25 00:00:00 Completed [facility] Hep B, Adol or Pedi Dosage 1998-01-25 00:00:00 Completed [facility] Haemophilus influenzae type b vaccine, conjugate unspecified formulation 1998-01-25 00:00:00 Completed [facility] MMR 1998-01-25 00:00:00 Completed [facility] Poliovirus, Live, Oral, Trivalent 1998-01-25 00:00:00 Completed [facility] DTaP, Unspecified Formulation 1998-01-25 00:00:00 Completed [facility] Hep B, Adol or Pedi Dosage 1998-01-25 00:00:00 Completed [facility] Haemophilus influenzae type b vaccine, conjugate unspecified formulation 1998-01-25 00:00:00 Completed [facility] MMR 1998-01-25 00:00:00 Completed [facility] Poliovirus, Live, Oral, Trivalent 1998-01-25 00:00:00 Completed [facility] DTaP, Unspecified Formulation 1998-01-25 00:00:00 Completed [facility] Hep B, Adol or Pedi Dosage 1998-01-25 00:00:00 Completed [facility] Haemophilus influenzae type b vaccine, conjugate unspecified formulation 1998-01-25 00:00:00 Completed [facility] MMR 1998-01-25 00:00:00 Completed [facility] Poliovirus, Live, Oral, Trivalent 1998-01-25 00:00:00 Completed [facility] DTaP, Unspecified Formulation 1998-01-25 00:00:00 Completed [facility] Hep B, Adol or Pedi Dosage 1998-01-25 00:00:00 Completed [facility] Haemophilus influenzae type b vaccine, conjugate unspecified formulation 1998-01-25 00:00:00 Completed [facility] MMR 1998-01-25 00:00:00 Completed [facility] Poliovirus, Live, Oral, Trivalent 1998-01-25 00:00:00 Completed [facility] DTaP, Unspecified Formulation 1998-01-25 00:00:00 Completed [facility] Hep B, Adol or Pedi Dosage 1998-01-25 00:00:00 Completed [facility] Haemophilus influenzae type b vaccine, conjugate unspecified formulation 1998-01-25 00:00:00 Completed [facility] MMR 1998-01-25 00:00:00 Completed [facility] Poliovirus, Live, Oral, Trivalent 1998-01-25 00:00:00 Completed [facility] DTaP, Unspecified Formulation 1998-01-25 00:00:00 Completed [facility] Hep B, Adol or Pedi Dosage 1998-01-25 00:00:00 Completed [facility] Haemophilus influenzae type b vaccine, conjugate unspecified formulation 1998-01-25 00:00:00 Completed [facility] MMR 1998-01-25 00:00:00 Completed [facility] Poliovirus, Live, Oral, Trivalent 1998-01-25 00:00:00 Completed [facility] DTaP, Unspecified Formulation 1998-01-25 00:00:00 Completed [facility] Hep B, Adol or Pedi Dosage 1998-01-25 00:00:00 Completed [facility] Haemophilus influenzae type b vaccine, conjugate unspecified formulation 1998-01-25 00:00:00 Completed [facility] MMR 1998-01-25 00:00:00 Completed [facility] Poliovirus, Live, Oral, Trivalent 1998-01-25 00:00:00 Completed [facility] DTaP, Unspecified Formulation 1998-01-25 00:00:00 Completed [facility] Hep B, Adol or Pedi Dosage 1998-01-25 00:00:00 Completed [facility] Haemophilus influenzae type b vaccine, conjugate unspecified formulation 1998-01-25 00:00:00 Completed [facility] MMR 1998-01-25 00:00:00 Completed [facility] Poliovirus, Live, Oral, Trivalent 1998-01-25 00:00:00 Completed [facility] DTaP, Unspecified Formulation 1998-01-25 00:00:00 Completed [facility] Hep B, Adol or Pedi Dosage 1998-01-25 00:00:00 Completed [facility] Haemophilus influenzae type b vaccine, conjugate unspecified formulation 1998-01-25 00:00:00 Completed [facility] MMR 1998-01-25 00:00:00 Completed [facility] Poliovirus, Live, Oral, Trivalent 1998-01-25 00:00:00 Completed [facility] DTaP, Unspecified Formulation 1998-01-25 00:00:00 Completed [facility] Hep B, Adol or Pedi Dosage 1998-01-25 00:00:00 Completed [facility] Haemophilus influenzae type b vaccine, conjugate unspecified formulation 1998-01-25 00:00:00 Completed [facility] MMR 1998-01-25 00:00:00 Completed [facility] Poliovirus, Live, Oral, Trivalent 1998-01-25 00:00:00 Completed [facility] DTaP, Unspecified Formulation 1998-01-25 00:00:00 Completed [facility] Hep B, Adol or Pedi Dosage 1998-01-25 00:00:00 Completed [facility] Haemophilus influenzae type b vaccine, conjugate unspecified formulation 1998-01-25 00:00:00 Completed [facility] MMR 1998-01-25 00:00:00 Completed [facility] Poliovirus, Live, Oral, Trivalent 1998-01-25 00:00:00 Completed [facility] DTaP, Unspecified Formulation 1998-01-25 00:00:00 Completed [facility] Hep B, Adol or Pedi Dosage 1998-01-25 00:00:00 Completed [facility] Haemophilus influenzae type b vaccine, conjugate unspecified formulation 1998-01-25 00:00:00 Completed [facility] MMR 1998-01-25 00:00:00 Completed [facility] Poliovirus, Live, Oral, Trivalent 1998-01-25 00:00:00 Completed [facility] DTaP, Unspecified Formulation 1998-01-25 00:00:00 Completed [facility] Hep B, Adol or Pedi Dosage 1998-01-25 00:00:00 Completed [facility] Haemophilus influenzae type b vaccine, conjugate unspecified formulation 1998-01-25 00:00:00 Completed [facility] MMR 1998-01-25 00:00:00 Completed [facility] Poliovirus, Live, Oral, Trivalent 1998-01-25 00:00:00 Completed [facility] DTaP, Unspecified Formulation 1998-01-25 00:00:00 Completed [facility] Hep B, Adol or Pedi Dosage 1998-01-25 00:00:00 Completed [facility] Haemophilus influenzae type b vaccine, conjugate unspecified formulation 1998-01-25 00:00:00 Completed [facility] MMR 1998-01-25 00:00:00 Completed [facility] Poliovirus, Live, Oral, Trivalent 1998-01-25 00:00:00 Completed [facility] DTaP, Unspecified Formulation 1998-01-25 00:00:00 Completed [facility] Hep B, Adol or Pedi Dosage 1998-01-25 00:00:00 Completed [facility] MMR 1996-01-27 00:00:00 Completed [facility] MMR 1996-01-27 00:00:00 Completed [facility] MMR 1996-01-27 00:00:00 Completed [facility] MMR 1996-01-27 00:00:00 Completed [facility] MMR 1996-01-27 00:00:00 Completed [facility] MMR 1996-01-27 00:00:00 Completed [facility] MMR 1996-01-27 00:00:00 Completed [facility] MMR 1996-01-27 00:00:00 Completed [facility] MMR 1996-01-27 00:00:00 Completed [facility] MMR 1996-01-27 00:00:00 Completed [facility] MMR 1996-01-27 00:00:00 Completed [facility] MMR 1996-01-27 00:00:00 Completed [facility] MMR 1996-01-27 00:00:00 Completed [facility] MMR 1996-01-27 00:00:00 Completed [facility] MMR 1996-01-27 00:00:00 Completed [facility] MMR 1996-01-27 00:00:00 Completed [facility] MMR 1996-01-27 00:00:00 Completed [facility] MMR 1996-01-27 00:00:00 Completed [facility] MMR 1996-01-27 00:00:00 Completed [facility] MMR 1996-01-27 00:00:00 Completed [facility] MMR 1996-01-27 00:00:00 Completed [facility] MMR 1996-01-27 00:00:00 Completed [facility] MMR 1996-01-27 00:00:00 Completed [facility] MMR 1996-01-27 00:00:00 Completed [facility] MMR 1996-01-27 00:00:00 Completed [facility] MMR 1996-01-27 00:00:00 Completed [facility] MMR 1996-01-27 00:00:00 Completed [facility] MMR 1996-01-27 00:00:00 Completed [facility] MMR 1995-11-13 00:00:00 Completed [facility] DPT/HIB 1995-11-13 00:00:00 Completed [facility] MMR 1995-11-13 00:00:00 Completed [facility] DPT/HIB 1995-11-13 00:00:00 Completed [facility] MMR 1995-11-13 00:00:00 Completed [facility] DPT/HIB 1995-11-13 00:00:00 Completed [facility] MMR 1995-11-13 00:00:00 Completed [facility] DPT/HIB 1995-11-13 00:00:00 Completed [facility] MMR 1995-11-13 00:00:00 Completed [facility] DPT/HIB 1995-11-13 00:00:00 Completed [facility] MMR 1995-11-13 00:00:00 Completed [facility] DPT/HIB 1995-11-13 00:00:00 Completed [facility] MMR 1995-11-13 00:00:00 Completed [facility] DPT/HIB 1995-11-13 00:00:00 Completed [facility] MMR 1995-11-13 00:00:00 Completed [facility] DPT/HIB 1995-11-13 00:00:00 Completed [facility] MMR 1995-11-13 00:00:00 Completed [facility] DPT/HIB 1995-11-13 00:00:00 Completed [facility] MMR 1995-11-13 00:00:00 Completed [facility] DPT/HIB 1995-11-13 00:00:00 Completed [facility] MMR 1995-11-13 00:00:00 Completed [facility] DPT/HIB 1995-11-13 00:00:00 Completed [facility] MMR 1995-11-13 00:00:00 Completed [facility] DPT/HIB 1995-11-13 00:00:00 Completed [facility] MMR 1995-11-13 00:00:00 Completed [facility] DPT/HIB 1995-11-13 00:00:00 Completed [facility] MMR 1995-11-13 00:00:00 Completed [facility] DPT/HIB 1995-11-13 00:00:00 Completed [facility] MMR 1995-11-13 00:00:00 Completed [facility] DPT/HIB 1995-11-13 00:00:00 Completed [facility] MMR 1995-11-13 00:00:00 Completed [facility] DPT/HIB 1995-11-13 00:00:00 Completed [facility] MMR 1995-11-13 00:00:00 Completed [facility] DPT/HIB 1995-11-13 00:00:00 Completed [facility] MMR 1995-11-13 00:00:00 Completed [facility] DPT/HIB 1995-11-13 00:00:00 Completed [facility] MMR 1995-11-13 00:00:00 Completed [facility] DPT/HIB 1995-11-13 00:00:00 Completed [facility] MMR 1995-11-13 00:00:00 Completed [facility] DPT/HIB 1995-11-13 00:00:00 Completed [facility] MMR 1995-11-13 00:00:00 Completed [facility] DPT/HIB 1995-11-13 00:00:00 Completed [facility] MMR 1995-11-13 00:00:00 Completed [facility] DPT/HIB 1995-11-13 00:00:00 Completed [facility] MMR 1995-11-13 00:00:00 Completed [facility] DPT/HIB 1995-11-13 00:00:00 Completed [facility] MMR 1995-11-13 00:00:00 Completed [facility] DPT/HIB 1995-11-13 00:00:00 Completed [facility] MMR 1995-11-13 00:00:00 Completed [facility] DPT/HIB 1995-11-13 00:00:00 Completed [facility] MMR 1995-11-13 00:00:00 Completed [facility] DPT/HIB 1995-11-13 00:00:00 Completed [facility] MMR 1995-11-13 00:00:00 Completed [facility] DPT/HIB 1995-11-13 00:00:00 Completed [facility] MMR 1995-11-13 00:00:00 Completed [facility] DPT/HIB 1995-11-13 00:00:00 Completed [facility] DTaP, Unspecified Formulation Unknown Completed [facility] DTaP, Unspecified Formulation Unknown Completed [facility] DTaP, Unspecified Formulation Unknown Completed [facility] DTaP, Unspecified Formulation Unknown Completed [facility] DPT/HIB Unknown Completed [facility] A Adult [facility] Hep B, Adol or Pedi Dosage Unknown Completed [facility] Hep B, Adol or Pedi Dosage Unknown Completed [facility] Hep B, Adol or Pedi Dosage Unknown Completed [facility] Haemophilus influenzae type b vaccine, conjugate unspecified formulation Unknown Completed [facility] Haemophilus influenzae type b vaccine, conjugate unspecified formulation Unknown Completed [facility] Meningococcal Polysaccharide (groups A, C, Y and W-[id number]) conjugate vaccine (MCV4P) Unknown Completed [facility] MMR Unknown Completed [facility] MMR Unknown Completed [facility] MMR Unknown Completed [facility] MMR Unknown Completed [facility] Poliovirus, Live, Oral, Trivalent Unknown Completed [facility] Poliovirus, Live, Oral, Trivalent Unknown Completed [facility] Poliovirus, Live, Oral, Trivalent Unknown Completed [facility] TDAP Unknown Completed [facility] Varicella (varivax)(chicken pox) Unknown Completed [facility] DTaP, Unspecified Formulation Unknown Completed [facility] DTaP, Unspecified Formulation Unknown Completed [facility] DTaP, Unspecified Formulation Unknown Completed [facility] DTaP, Unspecified Formulation Unknown Completed [facility] DPT/HIB Unknown Completed [facility] Hepatitis A Adult Unknown [facility] Hep B, Adol or Pedi Dosage Unknown Completed [facility] Hep B, Adol or Pedi Dosage Unknown Completed [facility] Hep B, Adol or Pedi Dosage Unknown Completed [facility] [facility] Haemophilus influenzae type b vaccine, conjugate unspecified formulation Unknown Completed [facility] Haemophilus influenzae type b vaccine, conjugate unspecified formulation Unknown Completed [facility] Meningococcal Polysaccharide (groups A, C, Y and W-135) conjugate vaccine (MCV4P) Unknown Completed [facility] MMR Unknown Completed [facility] MMR Unknown Completed [facility] MMR Unknown Completed [facility] MMR Unknown Completed [facility] Poliovirus, Live, Oral, Trivalent Unknown Completed [facility] Poliovirus, Live, Oral, Trivalent Unknown Completed [facility] Poliovirus, Live, Oral, Trivalent Unknown Completed [facility] TDAP Unknown Completed [facility] Varicella (varivax)(chicken pox) Unknown Completed [facility] DTaP, Unspecified Formulation Unknown Completed [facility] DTaP, Unspecified Formulation Unknown Completed [facility] DTaP, Unspecified Formulation Unknown Completed [facility] DTaP, Unspecified Formulation Unknown Completed [facility] DPT/HIB Unknown Completed [facility] Hepatitis A Adult [facility] Hep B, Adol or Pedi Dosage Unknown Completed [facility] Hep B, Adol or Pedi Dosage Unknown Completed [facility] Hep B, Adol or Pedi Dosage Unknown Completed [facility] Haemophilus influenzae type b vaccine, conjugate unspecified formulation Unknown Completed [facility] Haemophilus influenzae type b vaccine, conjugate unspecified formulation Unknown Completed [facility] Meningococcal Polysaccharide (groups A, C, Y and W-135) conjugate vaccine (MCV4P) Unknown Completed [facility] MMR Unknown Completed [facility] MMR Unknown Completed [facility] MMR Unknown Completed [facility] MMR Unknown Completed [facility] Poliovirus, Live, Oral, Trivalent Unknown Completed [facility] Poliovirus, Live, Oral, Trivalent Unknown Completed [facility] Poliovirus, Live, Oral, Trivalent Unknown Completed [facility] TDAP Unknown Completed [facility] Varicella (varivax)(chicken pox) Unknown Completed [facility] DTaP, Unspecified Formulation Unknown Completed [facility] DTaP, Unspecified Formulation Unknown Completed [facility] DTaP, Unspecified Formulation Unknown Completed [facility] DTaP, Unspecified Formulation Unknown Completed [facility] DPT/HIB Unknown Completed [facility] Hepatitis A Adult Unknown Completed Un [facility] HEPATITIS A Unknown Completed [facility] Hep B, Adol or Pedi Dosage Unknown Completed [facility] Hep B, Adol or Pedi Dosage Unknown Completed [facility] Hep B, Adol or Pedi Dosage Unknown Completed [facility] Haemophilus influenzae type b vaccine, conjugate unspecified formulation Unknown Completed [facility] Haemophilus influenzae type b vaccine, conjugate unspecified formulation Unknown Completed [facility] Meningococcal Polysaccharide (groups A, C, Y and W-135) conjugate vaccine (MCV4P) Unknown Completed [facility] MMR Unknown Completed [facility] MMR Unknown Completed [facility] MMR Unknown Completed [facility] MMR Unknown Completed [facility] Poliovirus, Live, Oral, Trivalent Unknown Completed [facility] Poliovirus, Live, Oral, Trivalent Unknown Completed [facility] Poliovirus, Live, Oral, Trivalent Unknown Completed [facility] TDAP Unknown Completed [facility] Varicella (varivax)(chicken pox) Unknown Completed [facility] DTaP, Unspecified Formulation Unknown Completed [facility] DTaP, Unspecified Formulation Unknown Completed [facility] DTaP, Unspecified Formulation Unknown Completed [facility] DTaP, Unspecified Formulation Unknown Completed [facility] DPT/HIB Unknown Completed [facility] Hepatitis A Adult Unknown Completed [facility] HEPATITIS A Unknown Completed [facility] Hep B, Adol or Pedi Dosage Unknown Completed [facility] Hep B, Adol or Pedi Dosage Unknown Completed [facility] Hep B, Adol or Pedi Dosage Unknown Completed [facility] Haemophilus influenzae type b vaccine, conjugate unspecified formulation Unknown Completed [facility] Haemophilus influenzae type b vaccine, conjugate unspecified formulation Unknown Completed [facility] Meningococcal Polysaccharide (groups A, C, Y and W-135) conjugate vaccine (MCV4P) Unknown Completed [facility] MMR Unknown Completed [facility] MMR Unknown Completed [facility] MMR Unknown Completed [facility] MMR Unknown Completed [facility] Poliovirus, Live, Oral, Trivalent Unknown Completed [facility] Poliovirus, Live, Oral, Trivalent Unknown Completed [facility] Poliovirus, Live, Oral, Trivalent Unknown Completed [facility] TDAP Unknown Completed [facility] Varicella (varivax)(chicken pox) Unknown Completed [facility] DTaP, Unspecified Formulation Unknown Completed [facility] DTaP, Unspecified Formulation Unknown Completed [facility] DTaP, Unspecified Formulation Unknown Completed [facility] DTaP, Unspecified Formulation Unknown Completed [facility] DPT/HIB Unknown Completed [facility] Hepatitis A Adult Unknown [facility] Completed [facility] Hep B, Adol or Pedi Dosage Unknown Completed [facility] Hep B, Adol or Pedi Dosage Unknown Completed [facility] Hep B, Adol or Pedi Dosage Unknown Completed [facility] Haemophilus influenzae type b vaccine, conjugate unspecified formulation Unknown Completed [facility] Haemophilus influenzae type b vaccine, conjugate unspecified formulation Unknown Completed [facility] Meningococcal Polysaccharide (groups A, C, Y and W-135) conjugate vaccine (MCV4P) Unknown Completed [facility] MMR Unknown Completed [facility] MMR Unknown Completed [facility] MMR Unknown Completed [facility] MMR Unknown Completed [facility] Poliovirus, Live, Oral, Trivalent Unknown Completed [facility] Poliovirus, Live, Oral, Trivalent Unknown Completed [facility] Poliovirus, Live, Oral, Trivalent Unknown Completed [facility] TDAP Unknown Completed [facility] Varicella (varivax)(chicken pox) Unknown Completed [facility] DTaP, Unspecified Formulation Unknown Completed [facility] DTaP, Unspecified Formulation Unknown Completed [facility] DTaP, Unspecified Formulation Unknown Completed [facility] DTaP, Unspecified Formulation Unknown Completed [facility] DPT/HIB Unknown Completed [facility] Hepatitis A Adult [facility] Hep B, Adol or Pedi Dosage Unknown Completed [facility] Hep B, Adol or Pedi Dosage Unknown Completed [facility] Hep B, Adol or Pedi Dosage Unknown Completed [facility] Haemophilus influenzae type b vaccine, conjugate unspecified formulation Unknown Completed [facility] Haemophilus influenzae type b vaccine, conjugate unspecified formulation Unknown Completed [facility] Meningococcal Polysaccharide (groups A, C, Y and W-135) conjugate vaccine (MCV4P) Unknown Completed [facility] MMR Unknown Completed [facility] MMR Unknown Completed [facility] MMR Unknown Completed [facility] MMR Unknown Completed [facility] Poliovirus, Live, Oral, Trivalent Unknown Completed [facility] Poliovirus, Live, Oral, Trivalent Unknown Completed [facility] Poliovirus, Live, Oral, Trivalent Unknown Completed [facility] TDAP Unknown Completed [facility] Varicella (varivax)(chicken pox) Unknown Completed [facility] DTaP, Unspecified Formulation Unknown Completed [facility] DTaP, Unspecified Formulation Unknown Completed [facility] DTaP, Unspecified Formulation Unknown Completed [facility] DTaP, Unspecified Formulation Unknown Completed [facility] DPT/HIB Unknown Completed [facility] Hepatitis A Adult Unknown Completed [facility] HEPATITIS A Unknown Completed [facility] Hep B, Adol or Pedi Dosage Unknown Completed [facility] Hep B, Adol or Pedi Dosage Unknown Completed [facility] Hep B, Adol or Pedi Dosage Unknown Completed [facility] Haemophilus influenzae type b vaccine, conjugate unspecified formulation Unknown Completed [facility] Haemophilus influenzae type b vaccine, conjugate unspecified formulation Unknown Completed [facility] Meningococcal Polysaccharide (groups A, C, Y and W-135) conjugate vaccine (MCV4P) Unknown Completed [facility] MMR Unknown Completed [facility] MMR Unknown Completed [facility] MMR Unknown Completed [facility] MMR Unknown Completed [facility] Poliovirus, Live, Oral, Trivalent Unknown Completed [facility] Poliovirus, Live, Oral, Trivalent Unknown Completed [facility] Poliovirus, Live, Oral, Trivalent Unknown Completed [facility] TDAP Unknown Completed [facility] Varicella (varivax)(chicken pox) Unknown Completed [facility] DTaP, Unspecified Formulation Unknown Completed [facility] DTaP, Unspecified Formulation Unknown Completed [facility] DTaP, Unspecified Formulation Unknown Completed [facility] DTaP, Unspecified Formulation Unknown Completed [facility] DPT/HIB Unknown Completed [facility] Hepatitis A Adult [facility] Hep B, Adol or Pedi Dosage Unknown Completed [facility] Hep B, Adol or Pedi Dosage Unknown Completed [facility] Hep B, Adol or Pedi Dosage Unknown Completed [facility] Haemophilus influenzae type b vaccine, conjugate unspecified formulation Unknown Completed [facility] Haemophilus influenzae type b vaccine, conjugate unspecified formulation Unknown Completed [facility] Meningococcal Polysaccharide (groups A, C, Y and W-135) conjugate vaccine (MCV4P) Unknown Completed [facility] MMR Unknown Completed [facility] MMR Unknown Completed [facility] MMR Unknown Completed [facility] MMR Unknown Completed [facility] Poliovirus, Live, Oral, Trivalent Unknown Completed [facility] Poliovirus, Live, Oral, Trivalent Unknown Completed [facility] Poliovirus, Live, Oral, Trivalent Unknown Completed [facility] TDAP Unknown Completed [facility] Varicella (varivax)(chicken pox) Unknown Completed [facility] DTaP, Unspecified Formulation Unknown Completed [facility] DTaP, Unspecified Formulation Unknown Completed [facility] DTaP, Unspecified Formulation Unknown Completed [facility] DTaP, Unspecified Formulation Unknown Completed [facility] DPT/HIB Unknown Completed [facility] Hepatitis A Adult Unknown [facility] Completed [facility] Hep B, Adol or Pedi Dosage Unknown Completed [facility] Hep B, Adol or Pedi Dosage Unknown Completed [facility] Hep B, Adol or Pedi Dosage Unknown Completed [facility] Haemophilus influenzae type b vaccine, conjugate unspecified formulation Unknown Completed [facility] Haemophilus influenzae type b vaccine, conjugate unspecified formulation Unknown Completed [facility] Meningococcal Polysaccharide (groups A, C, Y and W-135) conjugate vaccine (MCV4P) Unknown Completed [facility] MMR Unknown Completed [facility] MMR Unknown Completed [facility] MMR Unknown Completed [facility] MMR Unknown Completed [facility] Poliovirus, Live, Oral, Trivalent Unknown Completed [facility] Poliovirus, Live, Oral, Trivalent Unknown Completed [facility] Poliovirus, Live, Oral, Trivalent Unknown Completed [facility] TDAP Unknown Completed [facility] Varicella (varivax)(chicken pox) Unknown Completed [facility] DTaP, Unspecified Formulation Unknown Completed [facility] DTaP, Unspecified Formulation Unknown Completed [facility] DTaP, Unspecified Formulation Unknown Completed [facility] DTaP, Unspecified Formulation Unknown Completed [facility] DPT/HIB Unknown Completed [facility] Hepatitis A Adult Unknown [facility] Completed [facility] Hep B, Adol or Pedi Dosage Unknown Completed [facility] Hep B, Adol or Pedi Dosage Unknown Completed [facility] Hep B, Adol or Pedi Dosage Unknown Completed [facility] Haemophilus influenzae type b vaccine, conjugate unspecified formulation Unknown Completed [facility] Haemophilus influenzae type b vaccine, conjugate unspecified formulation Unknown Completed [facility] Meningococcal Polysaccharide (groups A, C, Y and W-135) conjugate vaccine (MCV4P) Unknown Completed [facility] MMR Unknown Completed [facility] MMR Unknown Completed [facility] MMR Unknown Completed [facility] MMR Unknown Completed [facility] Poliovirus, Live, Oral, Trivalent Unknown Completed [facility] Poliovirus, Live, Oral, Trivalent Unknown Completed [facility] Poliovirus, Live, Oral, Trivalent Unknown Completed [facility] TDAP Unknown Completed [facility] Varicella (varivax)(chicken pox) Unknown Completed [facility] DTaP, Unspecified Formulation Unknown Completed [facility] DTaP, Unspecified Formulation Unknown Completed [facility] DTaP, Unspecified Formulation Unknown Completed [facility] DTaP, Unspecified Formulation Unknown Completed [facility] DPT/HIB Unknown Completed [facility] Hepatitis A Adult [facility] Hep B, Adol or Pedi Dosage Unknown Completed [facility] Hep B, Adol or Pedi Dosage Unknown Completed [facility] Hep B, Adol or Pedi Dosage Unknown Completed [facility] Haemophilus influenzae type b vaccine, conjugate unspecified formulation Unknown Completed [facility] Haemophilus influenzae type b vaccine, conjugate unspecified formulation Unknown Completed [facility] Meningococcal Polysaccharide (groups A, C, Y and W-135) conjugate vaccine (MCV4P) Unknown Completed [facility] MMR Unknown Completed [facility] MMR Unknown Completed [facility] MMR Unknown Completed [facility] MMR Unknown Completed [facility] Poliovirus, Live, Oral, Trivalent Unknown Completed [facility] Poliovirus, Live, Oral, Trivalent Unknown Completed [facility] Poliovirus, Live, Oral, Trivalent Unknown Completed [facility] TDAP Unknown Completed [facility] Varicella (varivax)(chicken pox) Unknown Completed [facility] DTaP, Unspecified Formulation Unknown Completed [facility] DTaP, Unspecified Formulation Unknown Completed [facility] DTaP, Unspecified Formulation Unknown Completed [facility] DTaP, Unspecified Formulation Unknown Completed [facility] DPT/HIB Unknown Completed [facility] Hepatitis A Adult Unknown Completed [facility] HEPATITIS A Unknown Completed [facility] Hep B, Adol or Pedi Dosage Unknown Completed [facility] Hep B, Adol or Pedi Dosage Unknown Completed [facility] Hep B, Adol or Pedi Dosage Unknown Completed [facility] Haemophilus influenzae type b vaccine, conjugate unspecified formulation Unknown Completed [facility] Haemophilus influenzae type b vaccine, conjugate unspecified formulation Unknown Completed [facility] Meningococcal Polysaccharide (groups A, C, Y and W-135) conjugate vaccine (MCV4P) Unknown Completed [facility] MMR Unknown Completed [facility] MMR Unknown Completed [facility] MMR Unknown Completed [facility] MMR Unknown Completed [facility] Poliovirus, Live, Oral, Trivalent Unknown Completed [facility] Poliovirus, Live, Oral, Trivalent Unknown Completed [facility] Poliovirus, Live, Oral, Trivalent Unknown Completed [facility] TDAP Unknown Completed [facility] Varicella (varivax)(chicken pox) Unknown Completed [facility] DTaP, Unspecified Formulation Unknown Completed [facility] DTaP, Unspecified Formulation Unknown Completed [facility] DTaP, Unspecified Formulation Unknown Completed [facility] DTaP, Unspecified Formulation Unknown Completed [facility] DPT/HIB Unknown Completed [facility] Hepatitis A Adult [facility] Hep B, Adol or Pedi Dosage Unknown Completed [facility] Hep B, Adol or Pedi Dosage Unknown Completed [facility] Hep B, Adol or Pedi Dosage Unknown Completed [facility] Haemophilus influenzae type b vaccine, conjugate unspecified formulation Unknown Completed [facility] Haemophilus influenzae type b vaccine, conjugate unspecified formulation Unknown Completed [facility] Meningococcal Polysaccharide (groups A, C, Y and W-135) conjugate vaccine (MCV4P) Unknown Completed [facility] MMR Unknown Completed [facility] MMR Unknown Completed [facility] MMR Unknown Completed [facility] MMR Unknown Completed [facility] Poliovirus, Live, Oral, Trivalent Unknown Completed [facility] Poliovirus, Live, Oral, Trivalent Unknown Completed [facility] Poliovirus, Live, Oral, Trivalent Unknown Completed [facility] TDAP Unknown Completed [facility] Varicella (varivax)(chicken pox) Unknown Completed [facility] DTaP, Unspecified Formulation Unknown Completed [facility] DTaP, Unspecified Formulation Unknown Completed [facility] DTaP, Unspecified Formulation Unknown Completed [facility] DTaP, Unspecified Formulation Unknown Completed [facility] DPT/HIB Unknown Completed [facility] Hepatitis A Adult [facility] Completed [facility] Hep B, Adol or Pedi Dosage Unknown Completed [facility] Hep B, Adol or Pedi Dosage Unknown Completed [facility] Hep B, Adol or Pedi Dosage Unknown Completed [facility] Haemophilus influenzae type b vaccine, conjugate unspecified formulation Unknown Completed [facility] Haemophilus influenzae type b vaccine, conjugate unspecified formulation Unknown Completed [facility] Meningococcal Polysaccharide (groups A, C, Y and W-135) conjugate vaccine (MCV4P) Unknown Completed [facility] MMR Unknown Completed [facility] MMR Unknown Completed [facility] MMR Unknown Completed [facility] MMR Unknown Completed [facility] Poliovirus, Live, Oral, Trivalent Unknown Completed [facility] Poliovirus, Live, Oral, Trivalent Unknown Completed [facility] Poliovirus, Live, Oral, Trivalent Unknown Completed [facility] TDAP Unknown Completed [facility] Varicella (varivax)(chicken pox) Unknown Completed [facility] DTaP, Unspecified Formulation Unknown Completed [facility] DTaP, Unspecified Formulation Unknown Completed [facility] DTaP, Unspecified Formulation Unknown Completed [facility] DTaP, Unspecified Formulation Unknown Completed [facility] DPT/HIB Unknown Completed [facility] Hepatitis A Adult [facility] Hep B, Adol or Pedi Dosage Unknown Completed [facility] Hep B, Adol or Pedi Dosage Unknown Completed [facility] Hep B, Adol or Pedi Dosage Unknown Completed [facility] Haemophilus influenzae type b vaccine, conjugate unspecified formulation Unknown Completed [facility] Haemophilus influenzae type b vaccine, conjugate unspecified formulation Unknown Completed [facility] Meningococcal Polysaccharide (groups A, C, Y and W-135) conjugate vaccine (MCV4P) Unknown Completed [facility] MMR Unknown Completed [facility] MMR Unknown Completed [facility] MMR Unknown Completed [facility] MMR Unknown Completed [facility] Poliovirus, Live, Oral, Trivalent Unknown Completed [facility] Poliovirus, Live, Oral, Trivalent Unknown Completed [facility] Poliovirus, Live, Oral, Trivalent Unknown Completed [facility] TDAP Unknown Completed [facility] Varicella (varivax)(chicken pox) Unknown Completed [facility] DTaP, Unspecified Formulation Unknown Completed [facility] DTaP, Unspecified Formulation Unknown Completed [facility] DTaP, Unspecified Formulation Unknown Completed [facility] DTaP, Unspecified Formulation Unknown Completed [facility] DPT/HIB Unknown Completed [facility] Hepatitis A Adult Unknown Completed Un [facility] HEPATITIS A Unknown Completed [facility] Hep B, Adol or Pedi Dosage Unknown Completed [facility] Hep B, Adol or Pedi Dosage Unknown Completed [facility] Hep B, Adol or Pedi Dosage Unknown Completed [facility] Haemophilus influenzae type b vaccine, conjugate unspecified formulation Unknown Completed [facility] Haemophilus influenzae type b vaccine, conjugate unspecified formulation Unknown Completed [facility] Meningococcal Polysaccharide (groups A, C, Y and W-135) conjugate vaccine (MCV4P) Unknown Completed [facility] MMR Unknown Completed [facility] MMR Unknown Completed [facility] MMR Unknown Completed [facility] MMR Unknown Completed [facility] Poliovirus, Live, Oral, Trivalent Unknown Completed [facility] Poliovirus, Live, Oral, Trivalent Unknown Completed [facility] Poliovirus, Live, Oral, Trivalent Unknown Completed [facility] TDAP Unknown Completed [facility] Varicella (varivax)(chicken pox) Unknown Completed [facility] DTaP, Unspecified Formulation Unknown Completed [facility] DTaP, Unspecified Formulation Unknown Completed [facility] DTaP, Unspecified Formulation Unknown Completed [facility] DTaP, Unspecified Formulation Unknown Completed [facility] DPT/HIB Unknown Completed [facility] Hepatitis A Adult Unknown Completed [facility] HEPATITIS A Unknown Completed [facility] Hep B, Adol or Pedi Dosage Unknown Completed [facility] Hep B, Adol or Pedi Dosage Unknown Completed [facility] Hep B, Adol or Pedi Dosage Unknown Completed [facility] Haemophilus influenzae type b vaccine, conjugate unspecified formulation Unknown Completed [facility] Haemophilus influenzae type b vaccine, conjugate unspecified formulation Unknown Completed [facility] Meningococcal Polysaccharide (groups A, C, Y and W-135) conjugate vaccine (MCV4P) Unknown Completed [facility] MMR Unknown Completed [facility] MMR Unknown Completed [facility] MMR Unknown Completed [facility] MMR Unknown Completed [facility] Poliovirus, Live, Oral, Trivalent Unknown Completed [facility] Poliovirus, Live, Oral, Trivalent Unknown Completed [facility] Poliovirus, Live, Oral, Trivalent Unknown Completed [facility] TDAP Unknown Completed [facility] Varicella (varivax)(chicken pox) Unknown Completed [facility] DTaP, Unspecified Formulation Unknown Completed [facility] DTaP, Unspecified Formulation Unknown Completed [facility] DTaP, Unspecified Formulation Unknown Completed [facility] DTaP, Unspecified Formulation Unknown Completed [facility] DPT/HIB Unknown Completed [facility] Hepatitis A Adult [facility] Com[facility] Hep B, Adol or Pedi Dosage Unknown Completed [facility] Hep B, Adol or Pedi Dosage Unknown Completed [facility] Hep B, Adol or Pedi Dosage Unknown Completed [facility] Haemophilus influenzae type b vaccine, conjugate unspecified formulation Unknown Completed [facility] Haemophilus influenzae type b vaccine, conjugate unspecified formulation Unknown Completed [facility] Meningococcal Polysaccharide (groups A, C, Y and W-135) conjugate vaccine (MCV4P) Unknown Completed [facility] MMR Unknown Completed [facility] MMR Unknown Completed [facility] MMR Unknown Completed [facility] MMR Unknown Completed [facility] Poliovirus, Live, Oral, Trivalent Unknown Completed [facility] Poliovirus, Live, Oral, Trivalent Unknown Completed [facility] Poliovirus, Live, Oral, Trivalent Unknown Completed [facility] TDAP Unknown Completed [facility] Varicella (varivax)(chicken pox) Unknown Completed [facility] DTaP, Unspecified Formulation Unknown Completed [facility] DTaP, Unspecified Formulation Unknown Completed [facility] DTaP, Unspecified Formulation Unknown Completed [facility] DTaP, Unspecified Formulation Unknown Completed [facility] DPT/HIB Unknown Completed [facility] Hepatitis A Adult Unknown [facility] Hep B, Adol or Pedi Dosage Unknown Completed [facility] Hep B, Adol or Pedi Dosage Unknown Completed [facility] Hep B, Adol or Pedi Dosage Unknown Completed [facility] Haemophilus influenzae type b vaccine, conjugate unspecified formulation Unknown Completed [facility] Haemophilus influenzae type b vaccine, conjugate unspecified formulation Unknown Completed [facility] Meningococcal Polysaccharide (groups A, C, Y and W-135) conjugate vaccine (MCV4P) Unknown Completed [facility] MMR Unknown Completed [facility] MMR Unknown Completed [facility] MMR Unknown Completed [facility] MMR Unknown Completed [facility] Poliovirus, Live, Oral, Trivalent Unknown Completed [facility] Poliovirus, Live, Oral, Trivalent Unknown Completed [facility] Poliovirus, Live, Oral, Trivalent Unknown Completed [facility] TDAP Unknown Completed [facility] Varicella (varivax)(chicken pox) Unknown Completed [facility] DTaP, Unspecified Formulation Unknown Completed [facility] DTaP, Unspecified Formulation Unknown Completed [facility] DTaP, Unspecified Formulation Unknown Completed [facility] DTaP, Unspecified Formulation Unknown Completed [facility] DPT/HIB Unknown Completed [facility] Hepatitis A Adult Unknown Completed [facility] HEPATITIS A Unknown Completed [facility] Hep B, Adol or Pedi Dosage Unknown Completed [facility] Hep B, Adol or Pedi Dosage Unknown Completed [facility] Hep B, Adol or Pedi Dosage Unknown Completed [facility] Haemophilus influenzae type b vaccine, conjugate unspecified formulation Unknown Completed [facility] Haemophilus influenzae type b vaccine, conjugate unspecified formulation Unknown Completed [facility] Meningococcal Polysaccharide (groups A, C, Y and W-135) conjugate vaccine (MCV4P) Unknown Completed [facility] MMR Unknown Completed [facility] MMR Unknown Completed [facility] MMR Unknown Completed [facility] MMR Unknown Completed [facility] Poliovirus, Live, Oral, Trivalent Unknown Completed [facility] Poliovirus, Live, Oral, Trivalent Unknown Completed [facility] Poliovirus, Live, Oral, Trivalent Unknown Completed [facility] TDAP Unknown Completed [facility] Varicella (varivax)(chicken pox) Unknown Completed [facility] DTaP, Unspecified Formulation Unknown Completed [facility] DTaP, Unspecified Formulation Unknown Completed [facility] DTaP, Unspecified Formulation Unknown Completed [facility] DTaP, Unspecified Formulation Unknown Completed [facility] DPT/HIB Unknown Completed [facility] Hepatitis A Adult Unknown [facility] Completed [facility] Hep B, Adol or Pedi Dosage Unknown Completed [facility] Hep B, Adol or Pedi Dosage Unknown Completed [facility] Hep B, Adol or Pedi Dosage Unknown Completed [facility] Haemophilus influenzae type b vaccine, conjugate unspecified formulation Unknown Completed [facility] Haemophilus influenzae type b vaccine, conjugate unspecified formulation Unknown Completed [facility] Meningococcal Polysaccharide (groups A, C, Y and W-135) conjugate vaccine (MCV4P) Unknown Completed [facility] MMR Unknown Completed [facility] MMR Unknown Completed [facility] MMR Unknown Completed [facility] MMR Unknown Completed [facility] Poliovirus, Live, Oral, Trivalent Unknown Completed [facility] Poliovirus, Live, Oral, Trivalent Unknown Completed [facility] Poliovirus, Live, Oral, Trivalent Unknown Completed [facility] TDAP Unknown Completed [facility] Varicella (varivax)(chicken pox) Unknown Completed [facility] DTaP, Unspecified Formulation Unknown Completed [facility] DTaP, Unspecified Formulation Unknown Completed [facility] DTaP, Unspecified Formulation Unknown Completed [facility] DTaP, Unspecified Formulation Unknown Completed [facility] DPT/HIB Unknown Completed [facility] Hepatitis A Adult Unknown [facility] Completed [facility] Hep B, Adol or Pedi Dosage Unknown Completed [facility] Hep B, Adol or Pedi Dosage Unknown Completed [facility] Hep B, Adol or Pedi Dosage Unknown Completed [facility] Haemophilus influenzae type b vaccine, conjugate unspecified formulation Unknown Completed [facility] Haemophilus influenzae type b vaccine, conjugate unspecified formulation Unknown Completed [facility] Meningococcal Polysaccharide (groups A, C, Y and W-135) conjugate vaccine (MCV4P) Unknown Completed [facility] MMR Unknown Completed [facility] MMR Unknown Completed [facility] MMR Unknown Completed [facility] MMR Unknown Completed [facility] Poliovirus, Live, Oral, Trivalent Unknown Completed [facility] Poliovirus, Live, Oral, Trivalent Unknown Completed [facility] Poliovirus, Live, Oral, Trivalent Unknown Completed [facility] TDAP Unknown Completed [facility] Varicella (varivax)(chicken pox) Unknown Completed [facility] DTaP, Unspecified Formulation Unknown Completed [facility] DTaP, Unspecified Formulation Unknown Completed [facility] DTaP, Unspecified Formulation Unknown Completed [facility] DTaP, Unspecified Formulation Unknown Completed [facility] DPT/HIB Unknown Completed [facility] Hepatitis A Adult [facility] Hep B, Adol or Pedi Dosage Unknown Completed [facility] Hep B, Adol or Pedi Dosage Unknown Completed [facility] Hep B, Adol or Pedi Dosage Unknown Completed [facility] Haemophilus influenzae type b vaccine, conjugate unspecified formulation Unknown Completed [facility] Haemophilus influenzae type b vaccine, conjugate unspecified formulation Unknown Completed [facility] Meningococcal Polysaccharide (groups A, C, Y and W-135) conjugate vaccine (MCV4P) Unknown Completed [facility] MMR Unknown Completed [facility] MMR Unknown Completed [facility] MMR Unknown Completed [facility] MMR Unknown Completed [facility] Poliovirus, Live, Oral, Trivalent Unknown Completed [facility] Poliovirus, Live, Oral, Trivalent Unknown Completed [facility] Poliovirus, Live, Oral, Trivalent Unknown Completed [facility] TDAP Unknown Completed [facility] Varicella (varivax)(chicken pox) Unknown Completed [facility] DTaP, Unspecified Formulation Unknown Completed [facility] DTaP, Unspecified Formulation Unknown Completed [facility] DTaP, Unspecified Formulation Unknown Completed [facility] DTaP, Unspecified Formulation Unknown Completed [facility] DPT/HIB Unknown Completed [facility] Hepatitis A Adult Unknown [facility] Completed [facility] Hep B, Adol or Pedi Dosage Unknown Completed [facility] Hep B, Adol or Pedi Dosage Unknown Completed [facility] Hep B, Adol or Pedi Dosage Unknown Completed [facility] Haemophilus influenzae type b vaccine, conjugate unspecified formulation Unknown Completed [facility] Haemophilus influenzae type b vaccine, conjugate unspecified formulation Unknown Completed [facility] Meningococcal Polysaccharide (groups A, C, Y and W-135) conjugate vaccine (MCV4P) Unknown Completed [facility] MMR Unknown Completed [facility] MMR Unknown Completed [facility] MMR Unknown Completed [facility] MMR Unknown Completed [facility] Poliovirus, Live, Oral, Trivalent Unknown Completed [facility] Poliovirus, Live, Oral, Trivalent Unknown Completed [facility] Poliovirus, Live, Oral, Trivalent Unknown Completed [facility] TDAP Unknown Completed [facility] Varicella (varivax)(chicken pox) Unknown Completed [facility] DTaP, Unspecified Formulation Unknown Completed [facility] DTaP, Unspecified Formulation Unknown Completed [facility] DTaP, Unspecified Formulation Unknown Completed [facility] DTaP, Unspecified Formulation Unknown Completed [facility] DPT/HIB Unknown Completed [facility] Hepatitis A Adult Unknown Completed [facility] HEPATITIS A Unknown Completed [facility] Hep B, Adol or Pedi Dosage Unknown Completed [facility] Hep B, Adol or Pedi Dosage Unknown Completed [facility] Hep B, Adol or Pedi Dosage Unknown Completed [facility] Haemophilus influenzae type b vaccine, conjugate unspecified formulation Unknown Completed [facility] Haemophilus influenzae type b vaccine, conjugate unspecified formulation Unknown Completed [facility] Meningococcal Polysaccharide (groups A, C, Y and W-135) conjugate vaccine (MCV4P) Unknown Completed [facility] MMR Unknown Completed [facility] MMR Unknown Completed [facility] MMR Unknown Completed [facility] MMR Unknown Completed [facility] Poliovirus, Live, Oral, Trivalent Unknown Completed [facility] Poliovirus, Live, Oral, Trivalent Unknown Completed [facility] Poliovirus, Live, Oral, Trivalent Unknown Completed [facility] TDAP Unknown Completed [facility] Varicella (varivax)(chicken pox) Unknown Completed [facility] DTaP, Unspecified Formulation Unknown Completed [facility] DTaP, Unspecified Formulation Unknown Completed [facility] DTaP, Unspecified Formulation Unknown Completed [facility] DTaP, Unspecified Formulation Unknown Completed [facility] DPT/HIB Unknown Completed [facility] Hepatitis A Adult [facility] Hep B, Adol or Pedi Dosage Unknown Completed [facility] Hep B, Adol or Pedi Dosage Unknown Completed [facility] Hep B, Adol or Pedi Dosage Unknown Completed [facility] Haemophilus influenzae type b vaccine, conjugate unspecified formulation Unknown Completed [facility] Haemophilus influenzae type b vaccine, conjugate unspecified formulation Unknown Completed [facility] Meningococcal Polysaccharide (groups A, C, Y and W-135) conjugate vaccine (MCV4P) Unknown Completed [facility] MMR Unknown Completed [facility] MMR Unknown Completed [facility] MMR Unknown Completed [facility] MMR Unknown Completed [facility] Poliovirus, Live, Oral, Trivalent Unknown Completed [facility] Poliovirus, Live, Oral, Trivalent Unknown Completed [facility] Poliovirus, Live, Oral, Trivalent Unknown Completed [facility] TDAP Unknown Completed [facility] Varicella (varivax)(chicken pox) Unknown Completed [facility] DTaP, Unspecified Formulation Unknown Completed [facility] DTaP, Unspecified Formulation Unknown Completed [facility] DTaP, Unspecified Formulation Unknown Completed [facility] DTaP, Unspecified Formulation Unknown Completed [facility] DPT/HIB Unknown Completed [facility] Hepatitis A Adult Unknown [facility] Completed [facility] Hep B, Adol or Pedi Dosage Unknown Completed [facility] Hep B, Adol or Pedi Dosage Unknown Completed [facility] Hep B, Adol or Pedi Dosage Unknown Completed [facility] Haemophilus influenzae type b vaccine, conjugate unspecified formulation Unknown Completed [facility] Haemophilus influenzae type b vaccine, conjugate unspecified formulation Unknown Completed [facility] Meningococcal Polysaccharide (groups A, C, Y and W-135) conjugate vaccine (MCV4P) Unknown Completed [facility] MMR Unknown Completed [facility] MMR Unknown Completed [facility] MMR Unknown Completed [facility] MMR Unknown Completed [facility] Poliovirus, Live, Oral, Trivalent Unknown Completed [facility] Poliovirus, Live, Oral, Trivalent Unknown Completed [facility] Poliovirus, Live, Oral, Trivalent Unknown Completed [facility] TDAP Unknown Completed [facility] Varicella (varivax)(chicken pox) Unknown Completed [facility] DTaP, Unspecified Formulation Unknown Completed [facility] DTaP, Unspecified Formulation Unknown Completed [facility] DTaP, Unspecified Formulation Unknown Completed [facility] DTaP, Unspecified Formulation Unknown Completed [facility] DPT/HIB Unknown Completed [facility] Hepatitis A Adult Unknown Completed [facility] HEPATITIS A Unknown Completed [facility] Hep B, Adol or Pedi Dosage Unknown Completed [facility] Hep B, Adol or Pedi Dosage Unknown Completed [facility] Hep B, Adol or Pedi Dosage Unknown Completed [facility] Haemophilus influenzae type b vaccine, conjugate unspecified formulation Unknown Completed [facility] Haemophilus influenzae type b vaccine, conjugate unspecified formulation Unknown Completed [facility] Meningococcal Polysaccharide (groups A, C, Y and W-135) conjugate vaccine (MCV4P) Unknown Completed [facility] MMR Unknown Completed [facility] MMR Unknown Completed [facility] MMR Unknown Completed [facility] MMR Unknown Completed [facility] Poliovirus, Live, Oral, Trivalent Unknown Completed [facility] Poliovirus, Live, Oral, Trivalent Unknown Completed [facility] Poliovirus, Live, Oral, Trivalent Unknown Completed [facility] TDAP Unknown Completed [facility] Varicella (varivax)(chicken pox) Unknown Completed [facility] DTaP, Unspecified Formulation Unknown Completed [facility] DTaP, Unspecified Formulation Unknown Completed [facility] DTaP, Unspecified Formulation Unknown Completed [facility] DTaP, Unspecified Formulation Unknown Completed [facility] DPT/HIB Unknown Completed [facility] Hepatitis A Adult Unknown Completed Un [facility] HEPATITIS A Unknown Completed [facility] Hep B, Adol or Pedi Dosage Unknown Completed [facility] Hep B, Adol or Pedi Dosage Unknown Completed [facility] Hep B, Adol or Pedi Dosage Unknown Completed [facility] Haemophilus influenzae type b vaccine, conjugate unspecified formulation Unknown Completed [facility] Haemophilus influenzae type b vaccine, conjugate unspecified formulation Unknown Completed [facility] Meningococcal Polysaccharide (groups A, C, Y and W-135) conjugate vaccine (MCV4P) Unknown Completed [facility] MMR Unknown Completed [facility] MMR Unknown Completed [facility] MMR Unknown Completed [facility] MMR Unknown Completed [facility] Poliovirus, Live, Oral, Trivalent Unknown Completed [facility] Poliovirus, Live, Oral, Trivalent Unknown Completed [facility] Poliovirus, Live, Oral, Trivalent Unknown Completed [facility] TDAP Unknown Completed [facility] Varicella (varivax)(chicken pox) Unknown Completed [facility] DTaP, Unspecified Formulation Unknown Completed [facility] DTaP, Unspecified Formulation Unknown Completed [facility] DTaP, Unspecified Formulation Unknown Completed [facility] DTaP, Unspecified Formulation Unknown Completed [facility] DPT/HIB Unknown Completed [facility] Hepatitis A Adult Unknown Completed Un [facility] HEPATITIS A Unknown Completed [facility] Hep B, Adol or Pedi Dosage Unknown Completed [facility] Hep B, Adol or Pedi Dosage Unknown Completed [facility] Hep B, Adol or Pedi Dosage Unknown Completed [facility] Haemophilus influenzae type b vaccine, conjugate unspecified formulation Unknown Completed [facility] Haemophilus influenzae type b vaccine, conjugate unspecified formulation Unknown Completed [facility] Meningococcal Polysaccharide (groups A, C, Y and W-135) conjugate vaccine (MCV4P) Unknown Completed [facility] MMR Unknown Completed [facility] MMR Unknown Completed [facility] MMR Unknown Completed [facility] MMR Unknown Completed [facility] Poliovirus, Live, Oral, Trivalent Unknown Completed [facility] Poliovirus, Live, Oral, Trivalent Unknown Completed [facility] Poliovirus, Live, Oral, Trivalent Unknown Completed [facility] TDAP Unknown Completed [facility] Varicella (varivax)(chicken pox) Unknown Completed [facility] DTaP, Unspecified Formulation Unknown Completed [facility] DTaP, Unspecified Formulation Unknown Completed [facility] DTaP, Unspecified Formulation Unknown Completed [facility] DTaP, Unspecified Formulation Unknown Completed [facility] DPT/HIB Unknown Completed [facility] Hepatitis A Adult Unknown [facility] Completed [facility] Hep B, Adol or Pedi Dosage Unknown Completed [facility] Hep B, Adol or Pedi Dosage Unknown Completed [facility] Hep B, Adol or Pedi Dosage Unknown Completed [facility] Haemophilus influenzae type b vaccine, conjugate unspecified formulation Unknown Completed [facility] Haemophilus influenzae type b vaccine, conjugate unspecified formulation Unknown Completed [facility] Meningococcal Polysaccharide (groups A, C, Y and W-135) conjugate vaccine (MCV4P) Unknown Completed [facility] MMR Unknown Completed [facility] MMR Unknown Completed [facility] MMR Unknown Completed [facility] MMR Unknown Completed [facility] Poliovirus, Live, Oral, Trivalent Unknown Completed [facility] Poliovirus, Live, Oral, Trivalent Unknown Completed [facility] Poliovirus, Live, Oral, Trivalent Unknown Completed [facility] TDAP Unknown Completed [facility] Varicella (varivax)(chicken pox) Unknown Completed [facility] DTaP, Unspecified Formulation Unknown Completed [facility] DTaP, Unspecified Formulation Unknown Completed [facility] DTaP, Unspecified Formulation Unknown Completed [facility] DTaP, Unspecified Formulation Unknown Completed [facility] DPT/HIB Unknown Completed [facility] Hepatitis A Adult [facility] Completed [facility] Hep B, Adol or Pedi Dosage Unknown Completed [facility] Hep B, Adol or Pedi Dosage Unknown Completed [facility] Hep B, Adol or Pedi Dosage Unknown Completed [facility] Haemophilus influenzae type b vaccine, conjugate unspecified formulation Unknown Completed [facility] Haemophilus influenzae type b vaccine, conjugate unspecified formulation Unknown Completed [facility] Meningococcal Polysaccharide (groups A, C, Y and W-135) conjugate vaccine (MCV4P) Unknown Completed [facility] MMR Unknown Completed [facility] MMR Unknown Completed [facility] MMR Unknown Completed [facility] MMR Unknown Completed [facility] Poliovirus, Live, Oral, Trivalent Unknown Completed [facility] Poliovirus, Live, Oral, Trivalent Unknown Completed [facility] Poliovirus, Live, Oral, Trivalent Unknown Completed [facility] TDAP Unknown Completed [facility] Varicella (varivax)(chicken pox) Unknown Completed [facility] DTaP, Unspecified Formulation Unknown Completed [facility] DTaP, Unspecified Formulation Unknown Completed [facility] DTaP, Unspecified Formulation Unknown Completed [facility] DTaP, Unspecified Formulation Unknown Completed [facility] DPT/HIB Unknown Completed [facility] Hepatitis A Adult Unknown Completed [facility] HEPATITIS A Unknown Completed [facility] Hep B, Adol or Pedi Dosage Unknown Completed [facility] Hep B, Adol or Pedi Dosage Unknown Completed [facility] Hep B, Adol or Pedi Dosage Unknown Completed [facility] Haemophilus influenzae type b vaccine, conjugate unspecified formulation Unknown Completed [facility] Haemophilus influenzae type b vaccine, conjugate unspecified formulation Unknown Completed [facility] Meningococcal Polysaccharide (groups A, C, Y and W-135) conjugate vaccine (MCV4P) Unknown Completed [facility] MMR Unknown Completed [facility] MMR Unknown Completed [facility] MMR Unknown Completed [facility] MMR Unknown Completed [facility] Poliovirus, Live, Oral, Trivalent Unknown Completed [facility] Poliovirus, Live, Oral, Trivalent Unknown Completed [facility] Poliovirus, Live, Oral, Trivalent Unknown Completed [facility] TDAP Unknown Completed [facility] Varicella (varivax)(chicken pox) Unknown Completed [facility] DTaP, Unspecified Formulation Unknown Completed [facility] DTaP, Unspecified Formulation Unknown Completed [facility] DTaP, Unspecified Formulation Unknown Completed [facility] DTaP, Unspecified Formulation Unknown Completed [facility] DPT/HIB Unknown Completed [facility] Hepatitis A Adult [facility] Hep B, Adol or Pedi Dosage Unknown Completed [facility] Hep B, Adol or Pedi Dosage Unknown Completed [facility] Hep B, Adol or Pedi Dosage Unknown Completed [facility] Haemophilus influenzae type b vaccine, conjugate unspecified formulation Unknown Completed [facility] Haemophilus influenzae type b vaccine, conjugate unspecified formulation Unknown Completed [facility] Meningococcal Polysaccharide (groups A, C, Y and W-135) conjugate vaccine (MCV4P) Unknown Completed [facility] MMR Unknown Completed [facility] MMR Unknown Completed [facility] MMR Unknown Completed [facility] MMR Unknown Completed [facility] Poliovirus, Live, Oral, Trivalent Unknown Completed [facility] Poliovirus, Live, Oral, Trivalent Unknown Completed [facility] Poliovirus, Live, Oral, Trivalent Unknown Completed [facility] TDAP Unknown Completed [facility] Varicella (varivax)(chicken pox) Unknown Completed [facility] DTaP, Unspecified Formulation Unknown Completed [facility] DTaP, Unspecified Formulation Unknown Completed [facility] DTaP, Unspecified Formulation Unknown Completed [facility] DTaP, Unspecified Formulation Unknown Completed [facility] DPT/HIB Unknown Completed [facility] Hepatitis A Adult [facility] Com[facility] Hep B, Adol or Pedi Dosage Unknown Completed [facility] Hep B, Adol or Pedi Dosage Unknown Completed [facility] Hep B, Adol or Pedi Dosage Unknown Completed [facility] Haemophilus influenzae type b vaccine, conjugate unspecified formulation Unknown Completed [facility] Haemophilus influenzae type b vaccine, conjugate unspecified formulation Unknown Completed [facility] Meningococcal Polysaccharide (groups A, C, Y and W-135) conjugate vaccine (MCV4P) Unknown Completed [facility] MMR Unknown Completed [facility] MMR Unknown Completed [facility] MMR Unknown Completed [facility] MMR Unknown Completed [facility] Poliovirus, Live, Oral, Trivalent Unknown Completed [facility] Poliovirus, Live, Oral, Trivalent Unknown Completed [facility] Poliovirus, Live, Oral, Trivalent Unknown Completed [facility] TDAP Unknown Completed [facility] Varicella (varivax)(chicken pox) Unknown Completed [facility] DTaP, Unspecified Formulation Unknown Completed [facility] DTaP, Unspecified Formulation Unknown Completed [facility] DTaP, Unspecified Formulation Unknown Completed [facility] DTaP, Unspecified Formulation Unknown Completed [facility] DPT/HIB Unknown Completed [facility] Hepatitis A Adult Unknown Completed [facility] HEPATITIS A Unknown Completed [facility] Hep B, Adol or Pedi Dosage Unknown Completed [facility] Hep B, Adol or Pedi Dosage Unknown Completed [facility] Hep B, Adol or Pedi Dosage Unknown Completed [facility] Haemophilus influenzae type b vaccine, conjugate unspecified formulation Unknown Completed [facility] Haemophilus influenzae type b vaccine, conjugate unspecified formulation Unknown Completed [facility] Meningococcal Polysaccharide (groups A, C, Y and W-135) conjugate vaccine (MCV4P) Unknown Completed [facility] MMR Unknown Completed [facility] MMR Unknown Completed [facility] MMR Unknown Completed [facility] MMR Unknown Completed [facility] Poliovirus, Live, Oral, Trivalent Unknown Completed [facility] Poliovirus, Live, Oral, Trivalent Unknown Completed [facility] Poliovirus, Live, Oral, Trivalent Unknown Completed [facility] TDAP Unknown Completed [facility] Varicella (varivax)(chicken pox) Unknown Completed [facility] DTaP, Unspecified Formulation Unknown Completed [facility] DTaP, Unspecified Formulation Unknown Completed [facility] DTaP, Unspecified Formulation Unknown Completed [facility] DTaP, Unspecified Formulation Unknown Completed [facility] DPT/HIB Unknown Completed [facility] Hepatitis A Adult Unknown Completed Un [facility] HEPATITIS A Unknown Completed [facility] Hep B, Adol or Pedi Dosage Unknown Completed [facility] Hep B, Adol or Pedi Dosage Unknown Completed [facility] Hep B, Adol or Pedi Dosage Unknown Completed [facility] Haemophilus influenzae type b vaccine, conjugate unspecified formulation Unknown Completed [facility] Haemophilus influenzae type b vaccine, conjugate unspecified formulation Unknown Completed [facility] Meningococcal Polysaccharide (groups A, C, Y and W-135) conjugate vaccine (MCV4P) Unknown Completed [facility] MMR Unknown Completed [facility] MMR Unknown Completed [facility] MMR Unknown Completed [facility] MMR Unknown Completed [facility] Poliovirus, Live, Oral, Trivalent Unknown Completed [facility] Poliovirus, Live, Oral, Trivalent Unknown Completed [facility] Poliovirus, Live, Oral, Trivalent Unknown Completed [facility] TDAP Unknown Completed [facility] Varicella (varivax)(chicken pox) Unknown Completed [facility] DTaP, Unspecified Formulation Unknown Completed [facility] DTaP, Unspecified Formulation Unknown Completed [facility] DTaP, Unspecified Formulation Unknown Completed [facility] DTaP, Unspecified Formulation Unknown Completed [facility] DPT/HIB Unknown Completed [facility] Hepatitis A Adult Unknown Completed [facility] HEPATITIS A Unknown Completed [facility] Hep B, Adol or Pedi Dosage Unknown Completed [facility] Hep B, Adol or Pedi Dosage Unknown Completed [facility] Hep B, Adol or Pedi Dosage Unknown Completed [facility] Haemophilus influenzae type b vaccine, conjugate unspecified formulation Unknown Completed [facility] Haemophilus influenzae type b vaccine, conjugate unspecified formulation Unknown Completed [facility] Meningococcal Polysaccharide (groups A, C, Y and W-135) conjugate vaccine (MCV4P) Unknown Completed [facility] MMR Unknown Completed [facility] MMR Unknown Completed [facility] MMR Unknown Completed [facility] MMR Unknown Completed [facility] Poliovirus, Live, Oral, Trivalent Unknown Completed [facility] Poliovirus, Live, Oral, Trivalent Unknown Completed [facility] Poliovirus, Live, Oral, Trivalent Unknown Completed [facility] TDAP Unknown Completed [facility] Varicella (varivax)(chicken pox) Unknown Completed [facility] DTaP, Unspecified Formulation Unknown Completed [facility] DTaP, Unspecified Formulation Unknown Completed [facility] DTaP, Unspecified Formulation Unknown Completed [facility] DTaP, Unspecified Formulation Unknown Completed [facility] DPT/HIB Unknown Completed [facility] Hepatitis A Adult Unknown [facility] Completed [facility] Hep B, Adol or Pedi Dosage Unknown Completed [facility] Hep B, Adol or Pedi Dosage Unknown Completed [facility] Hep B, Adol or Pedi Dosage Unknown Completed [facility] Haemophilus influenzae type b vaccine, conjugate unspecified formulation Unknown Completed [facility] Haemophilus influenzae type b vaccine, conjugate unspecified formulation Unknown Completed [facility] Meningococcal Polysaccharide (groups A, C, Y and W-135) conjugate vaccine (MCV4P) Unknown Completed [facility] MMR Unknown Completed [facility] MMR Unknown Completed [facility] MMR Unknown Completed [facility] MMR Unknown Completed [facility] Poliovirus, Live, Oral, Trivalent Unknown Completed [facility] Poliovirus, Live, Oral, Trivalent Unknown Completed [facility] Poliovirus, Live, Oral, Trivalent Unknown Completed [facility] TDAP Unknown Completed [facility] Varicella (varivax)(chicken pox) Unknown Completed [facility] DTaP, Unspecified Formulation Unknown Completed [facility] DTaP, Unspecified Formulation Unknown Completed [facility] DTaP, Unspecified Formulation Unknown Completed [facility] DTaP, Unspecified Formulation Unknown Completed [facility] DPT/HIB Unknown Completed [facility] Hepatitis A Adult Unknown [facility] Completed [facility] Hep B, Adol or Pedi Dosage Unknown Completed [facility] Hep B, Adol or Pedi Dosage Unknown Completed [facility] Hep B, Adol or Pedi Dosage Unknown Completed [facility] Haemophilus influenzae type b vaccine, conjugate unspecified formulation Unknown Completed [facility] Haemophilus influenzae type b vaccine, conjugate unspecified formulation Unknown Completed [facility] Meningococcal Polysaccharide (groups A, C, Y and W-135) conjugate vaccine (MCV4P) Unknown Completed [facility] MMR Unknown Completed [facility] MMR Unknown Completed [facility] MMR Unknown Completed [facility] MMR Unknown Completed [facility] Poliovirus, Live, Oral, Trivalent Unknown Completed [facility] Poliovirus, Live, Oral, Trivalent Unknown Completed [facility] Poliovirus, Live, Oral, Trivalent Unknown Completed [facility] TDAP Unknown Completed [facility] Varicella (varivax)(chicken pox) Unknown Completed [facility] DTaP, Unspecified Formulation Unknown Completed [facility] DTaP, Unspecified Formulation Unknown Completed [facility] DTaP, Unspecified Formulation Unknown Completed [facility] DTaP, Unspecified Formulation Unknown Completed [facility] DPT/HIB Unknown Completed [facility] Hepatitis A Adult Unknown Completed [facility] HEPATITIS A Unknown Completed [facility] Hep B, Adol or Pedi Dosage Unknown Completed [facility] Hep B, Adol or Pedi Dosage Unknown Completed [facility] Hep B, Adol or Pedi Dosage Unknown Completed [facility] Haemophilus influenzae type b vaccine, conjugate unspecified formulation Unknown Completed [facility] Haemophilus influenzae type b vaccine, conjugate unspecified formulation Unknown Completed [facility] Meningococcal Polysaccharide (groups A, C, Y and W-135) conjugate vaccine (MCV4P) Unknown Completed [facility] MMR Unknown Completed [facility] MMR Unknown Completed [facility] MMR Unknown Completed [facility] MMR Unknown Completed [facility] Poliovirus, Live, Oral, Trivalent Unknown Completed [facility] Poliovirus, Live, Oral, Trivalent Unknown Completed [facility] Poliovirus, Live, Oral, Trivalent Unknown Completed [facility] TDAP Unknown Completed [facility] Varicella (varivax)(chicken pox) Unknown Completed [facility] DTaP, Unspecified Formulation Unknown Completed [facility] DTaP, Unspecified Formulation Unknown Completed [facility] DTaP, Unspecified Formulation Unknown Completed [facility] DTaP, Unspecified Formulation Unknown Completed [facility] DPT/HIB Unknown Completed [facility] Hepatitis A Adult Unknown Completed Un [facility] HEPATITIS A Unknown Completed [facility] Hep B, Adol or Pedi Dosage Unknown Completed [facility] Hep B, Adol or Pedi Dosage Unknown Completed [facility] Hep B, Adol or Pedi Dosage Unknown Completed [facility] Haemophilus influenzae type b vaccine, conjugate unspecified formulation Unknown Completed [facility] Haemophilus influenzae type b vaccine, conjugate unspecified formulation Unknown Completed [facility] Meningococcal Polysaccharide (groups A, C, Y and W-135) conjugate vaccine (MCV4P) Unknown Completed [facility] MMR Unknown Completed [facility] MMR Unknown Completed [facility] MMR Unknown Completed [facility] MMR Unknown Completed [facility] Poliovirus, Live, Oral, Trivalent Unknown Completed [facility] Poliovirus, Live, Oral, Trivalent Unknown Completed [facility] Poliovirus, Live, Oral, Trivalent Unknown Completed [facility] TDAP Unknown Completed [facility] Varicella (varivax)(chicken pox) Unknown Completed [facility] DTaP, Unspecified Formulation Unknown Completed [facility] DTaP, Unspecified Formulation Unknown Completed [facility] DTaP, Unspecified Formulation Unknown Completed [facility] DTaP, Unspecified Formulation Unknown Completed [facility] DPT/HIB Unknown Completed [facility] Hepatitis A Adult Unknown Completed Un [facility] HEPATITIS A Unknown Completed [facility] Hep B, Adol or Pedi Dosage Unknown Completed [facility] Hep B, Adol or Pedi Dosage Unknown Completed [facility] Hep B, Adol or Pedi Dosage Unknown Completed [facility] Haemophilus influenzae type b vaccine, conjugate unspecified formulation Unknown Completed [facility] Haemophilus influenzae type b vaccine, conjugate unspecified formulation Unknown Completed [facility] Meningococcal Polysaccharide (groups A, C, Y and W-135) conjugate vaccine (MCV4P) Unknown Completed [facility] MMR Unknown Completed [facility] MMR Unknown Completed [facility] MMR Unknown Completed [facility] MMR Unknown Completed [facility] Poliovirus, Live, Oral, Trivalent Unknown Completed [facility] Poliovirus, Live, Oral, Trivalent Unknown Completed [facility] Poliovirus, Live, Oral, Trivalent Unknown Completed [facility] TDAP Unknown Completed [facility] Varicella (varivax)(chicken pox) Unknown Completed [facility] DTaP, Unspecified Formulation Unknown Completed [facility] DTaP, Unspecified Formulation Unknown Completed [facility] DTaP, Unspecified Formulation Unknown Completed [facility] DTaP, Unspecified Formulation Unknown Completed [facility] DPT/HIB Unknown Completed [facility] Hepatitis A Adult Unknown [facility] Completed [facility] Hep B, Adol or Pedi Dosage Unknown Completed [facility] Hep B, Adol or Pedi Dosage Unknown Completed [facility] Hep B, Adol or Pedi Dosage Unknown Completed [facility] Haemophilus influenzae type b vaccine, conjugate unspecified formulation Unknown Completed [facility] Haemophilus influenzae type b vaccine, conjugate unspecified formulation Unknown Completed [facility] Meningococcal Polysaccharide (groups A, C, Y and W-135) conjugate vaccine (MCV4P) Unknown Completed [facility] MMR Unknown Completed [facility] MMR Unknown Completed [facility] [facility] MMR Unknown Completed [facility] MMR Unknown Completed [facility] Poliovirus, Live, Oral, Trivalent Unknown Completed [facility] Poliovirus, Live, Oral, Trivalent Unknown Completed [facility] Poliovirus, Live, Oral, Trivalent Unknown Completed [facility] TDAP Unknown Completed [facility] Varicella (varivax)(chicken pox) Unknown Completed [facility] DTaP, Unspecified Formulation Unknown Completed [facility] DTaP, Unspecified Formulation Unknown Completed [facility] DTaP, Unspecified Formulation Unknown Completed [facility] DTaP, Unspecified Formulation Unknown Completed [facility] DPT/HIB Unknown Completed [facility] A Adult [facility] Hep B, Adol or Pedi Dosage Unknown Completed [facility] Hep B, Adol or Pedi Dosage Unknown Completed [facility] Hep B, Adol or Pedi Dosage Unknown Completed [facility] Haemophilus influenzae type b vaccine, conjugate unspecified formulation Unknown Completed [facility] Haemophilus influenzae type b vaccine, conjugate unspecified formulation Unknown Completed [facility] Meningococcal Polysaccharide (groups A, C, Y and W-135) conjugate vaccine (MCV4P) Unknown Completed [facility] MMR Unknown Completed [facility] MMR Unknown Completed [facility] MMR Unknown Completed [facility] MMR Unknown Completed [facility] Poliovirus, Live, Oral, Trivalent Unknown Completed [facility] Poliovirus, Live, Oral, Trivalent Unknown Completed [facility] Poliovirus, Live, Oral, Trivalent Unknown Completed [facility] TDAP Unknown Completed [facility] Varicella (varivax)(chicken pox) Unknown Completed [facility] DTaP, Unspecified Formulation Unknown Completed [facility] DTaP, Unspecified Formulation Unknown Completed [facility] DTaP, Unspecified Formulation Unknown Completed [facility] DTaP, Unspecified Formulation Unknown Completed [facility] DPT/HIB Unknown Completed [facility] Hepatitis A Adult Unknown Completed [facility] HEPATITIS A Unknown Completed [facility] Hep B, Adol or Pedi Dosage Unknown Completed [facility] Hep B, Adol or Pedi Dosage Unknown Completed [facility] Hep B, Adol or Pedi Dosage Unknown Completed [facility] Haemophilus influenzae type b vaccine, conjugate unspecified formulation Unknown Completed [facility] Haemophilus influenzae type b vaccine, conjugate unspecified formulation Unknown Completed [facility] Meningococcal Polysaccharide (groups A, C, Y and W-135) conjugate vaccine (MCV4P) Unknown Completed [facility] MMR Unknown Completed [facility] MMR Unknown Completed [facility] MMR Unknown Completed [facility] MMR Unknown Completed [facility] Poliovirus, Live, Oral, Trivalent Unknown Completed [facility] Poliovirus, Live, Oral, Trivalent Unknown Completed [facility] Poliovirus, Live, Oral, Trivalent Unknown Completed [facility] TDAP Unknown Completed [facility] Varicella (varivax)(chicken pox) Unknown Completed [facility] DTaP, Unspecified Formulation Unknown Completed [facility] DTaP, Unspecified Formulation Unknown Completed [facility] DTaP, Unspecified Formulation Unknown Completed [facility] DTaP, Unspecified Formulation Unknown Completed [facility] DPT/HIB Unknown Completed [facility] Hepatitis A Adult [facility] Hep B, Adol or Pedi Dosage Unknown Completed [facility] Hep B, Adol or Pedi Dosage Unknown Completed [facility] Hep B, Adol or Pedi Dosage Unknown Completed [facility] Haemophilus influenzae type b vaccine, conjugate unspecified formulation Unknown Completed [facility] Haemophilus influenzae type b vaccine, conjugate unspecified formulation Unknown Completed [facility] Meningococcal Polysaccharide (groups A, C, Y and W-135) conjugate vaccine (MCV4P) Unknown Completed [facility] MMR Unknown Completed [facility] MMR Unknown Completed [facility] MMR Unknown Completed [facility] MMR Unknown Completed [facility] Poliovirus, Live, Oral, Trivalent Unknown Completed [facility] Poliovirus, Live, Oral, Trivalent Unknown Completed [facility] Poliovirus, Live, Oral, Trivalent Unknown Completed [facility] TDAP Unknown Completed [facility] Varicella (varivax)(chicken pox) Unknown Completed [facility] DTaP, Unspecified Formulation Unknown Completed [facility] DTaP, Unspecified Formulation Unknown Completed [facility] DTaP, Unspecified Formulation Unknown Completed [facility] DTaP, Unspecified Formulation Unknown Completed [facility] DPT/HIB Unknown Completed [facility] Hepatitis A Adult Unknown [facility] Completed [facility] Hep B, Adol or Pedi Dosage Unknown Completed [facility] Hep B, Adol or Pedi Dosage Unknown Completed [facility] Hep B, Adol or Pedi Dosage Unknown Completed [facility] Haemophilus influenzae type b vaccine, conjugate unspecified formulation Unknown Completed [facility] Haemophilus influenzae type b vaccine, conjugate unspecified formulation Unknown Completed [facility] Meningococcal Polysaccharide (groups A, C, Y and W-135) conjugate vaccine (MCV4P) Unknown Completed [facility] MMR Unknown Completed [facility] MMR Unknown Completed [facility] MMR Unknown Completed [facility] MMR Unknown Completed [facility] Poliovirus, Live, Oral, Trivalent Unknown Completed [facility] Poliovirus, Live, Oral, Trivalent Unknown Completed [facility] Poliovirus, Live, Oral, Trivalent Unknown Completed [facility] TDAP Unknown Completed [facility] Varicella (varivax)(chicken pox) Unknown Completed [facility] DTaP, Unspecified Formulation Unknown Completed [facility] DTaP, Unspecified Formulation Unknown Completed [facility] DTaP, Unspecified Formulation Unknown Completed [facility] DTaP, Unspecified Formulation Unknown Completed [facility] DPT/HIB Unknown Completed [facility] Hepatitis A Adult Unknown [facility] Hep B, Adol or Pedi Dosage Unknown Completed [facility] Hep B, Adol or Pedi Dosage Unknown Completed [facility] Hep B, Adol or Pedi Dosage Unknown Completed [facility] Haemophilus influenzae type b vaccine, conjugate unspecified formulation Unknown Completed [facility] Haemophilus influenzae type b vaccine, conjugate unspecified formulation Unknown Completed [facility] Meningococcal Polysaccharide (groups A, C, Y and W-135) conjugate vaccine (MCV4P) Unknown Completed [facility] MMR Unknown Completed [facility] MMR Unknown Completed [facility] MMR Unknown Completed [facility] MMR Unknown Completed [facility] Poliovirus, Live, Oral, Trivalent Unknown Completed [facility] Poliovirus, Live, Oral, Trivalent Unknown Completed [facility] Poliovirus, Live, Oral, Trivalent Unknown Completed [facility] TDAP Unknown Completed [facility] Varicella (varivax)(chicken pox) Unknown Completed [facility] DTaP, Unspecified Formulation Unknown Completed [facility] DTaP, Unspecified Formulation Unknown Completed [facility] DTaP, Unspecified Formulation Unknown Completed [facility] DTaP, Unspecified Formulation Unknown Completed [facility] DPT/HIB Unknown Completed [facility] Hepatitis A Adult [facility] Hep B, Adol or Pedi Dosage Unknown Completed [facility] Hep B, Adol or Pedi Dosage Unknown Completed [facility] Hep B, Adol or Pedi Dosage Unknown Completed [facility] Haemophilus influenzae type b vaccine, conjugate unspecified formulation Unknown Completed [facility] Haemophilus influenzae type b vaccine, conjugate unspecified formulation Unknown Completed [facility] Meningococcal Polysaccharide (groups A, C, Y and W-135) conjugate vaccine (MCV4P) Unknown Completed [facility] MMR Unknown Completed [facility] MMR Unknown Completed [facility] MMR Unknown Completed [facility] MMR Unknown Completed [facility] Poliovirus, Live, Oral, Trivalent Unknown Completed [facility] Poliovirus, Live, Oral, Trivalent Unknown Completed [facility] Poliovirus, Live, Oral, Trivalent Unknown Completed [facility] TDAP Unknown Completed [facility] Varicella (varivax)(chicken pox) Unknown Completed [facility] DTaP, Unspecified Formulation Unknown Completed [facility] DTaP, Unspecified Formulation Unknown Completed [facility] DTaP, Unspecified Formulation Unknown Completed [facility] DTaP, Unspecified Formulation Unknown Completed [facility] DPT/HIB Unknown Completed [facility] Hepatitis A Adult Unknown Completed Un [facility] HEPATITIS A Unknown Completed [facility] Hep B, Adol or Pedi Dosage Unknown Completed [facility] Hep B, Adol or Pedi Dosage Unknown Completed [facility] Hep B, Adol or Pedi Dosage Unknown Completed [facility] Haemophilus influenzae type b vaccine, conjugate unspecified formulation Unknown Completed [facility] Haemophilus influenzae type b vaccine, conjugate unspecified formulation Unknown Completed [facility] Meningococcal Polysaccharide (groups A, C, Y and W-135) conjugate vaccine (MCV4P) Unknown Completed [facility] MMR Unknown Completed [facility] MMR Unknown Completed [facility] MMR Unknown Completed [facility] MMR Unknown Completed [facility] Poliovirus, Live, Oral, Trivalent Unknown Completed [facility] Poliovirus, Live, Oral, Trivalent Unknown Completed [facility] Poliovirus, Live, Oral, Trivalent Unknown Completed [facility] TDAP Unknown Completed [facility] Varicella (varivax)(chicken pox) Unknown Completed [facility] DTaP, Unspecified Formulation Unknown Completed [facility] DTaP, Unspecified Formulation Unknown Completed [facility] DTaP, Unspecified Formulation Unknown Completed [facility] DTaP, Unspecified Formulation Unknown Completed [facility] DPT/HIB Unknown Completed [facility] Hepatitis A Adult [facility] Com[facility] Hep B, Adol or Pedi Dosage Unknown Completed [facility] Hep B, Adol or Pedi Dosage Unknown Completed [facility] Hep B, Adol or Pedi Dosage Unknown Completed [facility] Haemophilus influenzae type b vaccine, conjugate unspecified formulation Unknown Completed [facility] Haemophilus influenzae type b vaccine, conjugate unspecified formulation Unknown Completed [facility] Meningococcal Polysaccharide (groups A, C, Y and W-135) conjugate vaccine (MCV4P) Unknown Completed [facility] MMR Unknown Completed [facility] MMR Unknown Completed [facility] MMR Unknown Completed [facility] MMR Unknown Completed [facility] Poliovirus, Live, Oral, Trivalent Unknown Completed [facility] Poliovirus, Live, Oral, Trivalent Unknown Completed [facility] Poliovirus, Live, Oral, Trivalent Unknown Completed [facility] TDAP Unknown Completed [facility] Varicella (varivax)(chicken pox) Unknown Completed [facility] DTaP, Unspecified Formulation Unknown Completed [facility] DTaP, Unspecified Formulation Unknown Completed [facility] DTaP, Unspecified Formulation Unknown Completed [facility] DTaP, Unspecified Formulation Unknown Completed [facility] DPT/HIB Unknown Completed [facility] Hepatitis A Adult Unknown [facility] Completed [facility] Hep B, Adol or Pedi Dosage Unknown Completed [facility] Hep B, Adol or Pedi Dosage Unknown Completed [facility] Hep B, Adol or Pedi Dosage Unknown Completed [facility] Haemophilus influenzae type b vaccine, conjugate unspecified formulation Unknown Completed [facility] Haemophilus influenzae type b vaccine, conjugate unspecified formulation Unknown Completed [facility] Meningococcal Polysaccharide (groups A, C, Y and W-135) conjugate vaccine (MCV4P) Unknown Completed [facility] MMR Unknown Completed [facility] MMR Unknown Completed [facility] MMR Unknown Completed [facility] MMR Unknown Completed [facility] Poliovirus, Live, Oral, Trivalent Unknown Completed [facility] Poliovirus, Live, Oral, Trivalent Unknown Completed [facility] Poliovirus, Live, Oral, Trivalent Unknown Completed [facility] TDAP Unknown Completed [facility] Varicella (varivax)(chicken pox) Unknown Completed [facility] DTaP, Unspecified Formulation Unknown Completed [facility] DTaP, Unspecified Formulation Unknown Completed [facility] DTaP, Unspecified Formulation Unknown Completed [facility] DTaP, Unspecified Formulation Unknown Completed [facility] DPT/HIB Unknown Completed [facility] Hepatitis A Adult Unknown Completed [facility] HEPATITIS A Unknown Completed [facility] Hep B, Adol or Pedi Dosage Unknown Completed [facility] Hep B, Adol or Pedi Dosage Unknown Completed [facility] Hep B, Adol or Pedi Dosage Unknown Completed [facility] Haemophilus influenzae type b vaccine, conjugate unspecified formulation Unknown Completed [facility] Haemophilus influenzae type b vaccine, conjugate unspecified formulation Unknown Completed [facility] Meningococcal Polysaccharide (groups A, C, Y and W-135) conjugate vaccine (MCV4P) Unknown Completed [facility] MMR Unknown Completed [facility] MMR Unknown Completed [facility] MMR Unknown Completed [facility] MMR Unknown Completed [facility] Poliovirus, Live, Oral, Trivalent Unknown Completed [facility] Poliovirus, Live, Oral, Trivalent Unknown Completed [facility] Poliovirus, Live, Oral, Trivalent Unknown Completed [facility] TDAP Unknown Completed [facility] Varicella (varivax)(chicken pox) Unknown Completed [facility] DTaP, Unspecified Formulation Unknown Completed [facility] DTaP, Unspecified Formulation Unknown Completed [facility] DTaP, Unspecified Formulation Unknown Completed [facility] DTaP, Unspecified Formulation Unknown Completed [facility] DPT/HIB Unknown Completed [facility] Hepatitis A Adult Unknown [facility] Completed [facility] Hep B, Adol or Pedi Dosage Unknown Completed [facility] Hep B, Adol or Pedi Dosage Unknown Completed [facility] Hep B, Adol or Pedi Dosage Unknown Completed [facility] Haemophilus influenzae type b vaccine, conjugate unspecified formulation Unknown Completed [facility] Haemophilus influenzae type b vaccine, conjugate unspecified formulation Unknown Completed [facility] Meningococcal Polysaccharide (groups A, C, Y and W-135) conjugate vaccine (MCV4P) Unknown Completed [facility] MMR Unknown Completed [facility] MMR Unknown Completed [facility] MMR Unknown Completed [facility] MMR Unknown Completed [facility] Poliovirus, Live, Oral, Trivalent Unknown Completed [facility] Poliovirus, Live, Oral, Trivalent Unknown Completed [facility] Poliovirus, Live, Oral, Trivalent Unknown Completed [facility] TDAP Unknown Completed [facility] Varicella (varivax)(chicken pox) Unknown Completed [facility] DTaP, Unspecified Formulation Unknown Completed [facility] DTaP, Unspecified Formulation Unknown Completed [facility] DTaP, Unspecified Formulation Unknown Completed [facility] DTaP, Unspecified Formulation Unknown Completed [facility] DPT/HIB Unknown Completed [facility] Hepatitis A Adult [facility] Hep B, Adol or Pedi Dosage Unknown Completed [facility] Hep B, Adol or Pedi Dosage Unknown Completed [facility] Hep B, Adol or Pedi Dosage Unknown Completed [facility] Haemophilus influenzae type b vaccine, conjugate unspecified formulation Unknown Completed [facility] Haemophilus influenzae type b vaccine, conjugate unspecified formulation Unknown Completed [facility] Meningococcal Polysaccharide (groups A, C, Y and W-135) conjugate vaccine (MCV4P) Unknown Completed [facility] MMR Unknown Completed [facility] MMR Unknown Completed [facility] MMR Unknown Completed [facility] MMR Unknown Completed [facility] Poliovirus, Live, Oral, Trivalent Unknown Completed [facility] Poliovirus, Live, Oral, Trivalent Unknown Completed [facility] Poliovirus, Live, Oral, Trivalent Unknown Completed [facility] TDAP Unknown Completed [facility] Varicella (varivax)(chicken pox) Unknown Completed [facility] DTaP, Unspecified Formulation Unknown Completed [facility] DTaP, Unspecified Formulation Unknown Completed [facility] DTaP, Unspecified Formulation Unknown Completed [facility] DTaP, Unspecified Formulation Unknown Completed [facility] DPT/HIB Unknown Completed [facility] Hepatitis A Adult Unknown Completed [facility] HEPATITIS A Unknown Completed [facility] Hep B, Adol or Pedi Dosage Unknown Completed [facility] Hep B, Adol or Pedi Dosage Unknown Completed [facility] Hep B, Adol or Pedi Dosage Unknown Completed [facility] Haemophilus influenzae type b vaccine, conjugate unspecified formulation Unknown Completed [facility] Haemophilus influenzae type b vaccine, conjugate unspecified formulation Unknown Completed [facility] Meningococcal Polysaccharide (groups A, C, Y and W-135) conjugate vaccine (MCV4P) Unknown Completed [facility] MMR Unknown Completed [facility] MMR Unknown Completed [facility] MMR Unknown Completed [facility] MMR Unknown Completed [facility] Poliovirus, Live, Oral, Trivalent Unknown Completed [facility] Poliovirus, Live, Oral, Trivalent Unknown Completed [facility] Poliovirus, Live, Oral, Trivalent Unknown Completed [facility] TDAP Unknown Completed [facility] Varicella (varivax)(chicken pox) Unknown Completed [facility] Vital Signs Vital Name Observation Time Observation Value Comments S ource Systolic blood pressure 2023-12-20 17:49:00 130 mm[Hg] [facility] Diastolic blood pressure 2023-12-20 17:49:00 87 mm[Hg] [facility] Heart rate 2023-12-20 17:49:00 74 /min [facility] Body temperature 2023-12-20 17:49:00 37.06 Annabella [facility] Respiratory rate 2023-12-20 17:49:00 17 /min [facility] Body height 2023-12-20 17:49:00 188 cm [facility] Body weight 2023-12-20 17:49:00 99.083 kg [facility] BMI 2023-12-20 17:49:00 28.05 kg/m2 [facility] Oxygen saturation in Arterial blood by Pulse oximetry 2023-12-20 17:49:00 96 /min [facility] Systolic blood pressure 2023-08-13 00:00:00 145 mm[Hg] [facility] Diastolic blood pressure 2023-08-13 00:00:00 99 mm[Hg] [facility] Heart rate 2023-08-13 00:00:00 86 /min [facility] Respiratory rate 2023-08-13 00:00:00 16 /min [facility] Oxygen saturation in Arterial blood by Pulse oximetry 2023-08-13 00:00:00 97 /min [facility] Body temperature 2023-08-12 21:56:00 36.72 Annabella [facility] Body height 2023-08-12 21:56:00 188 cm [facility] Body weight 2023-08-12 21:56:00 101.606 kg [facility] BMI 2023-08-12 21:56:00 28.76 kg/m2 [facility] Systolic blood pressure 2023-07-05 15:10:00 131 mm[Hg] [facility] Diastolic blood pressure 2023-07-05 15:10:00 77 mm[Hg] [facility] Body temperature 2023-07-05 15:10:00 36.44 Annabella [facility] Body height 2023-07-05 15:10:00 188 cm [facility] Body weight 2023-07-05 15:10:00 101.606 kg [facility] BMI 2023-07-05 15:10:00 28.76 kg/m2 [facility] Body height 2023-06-06 20:17:00 188 cm [facility] Body weight 2023-06-06 20:17:00 99.791 kg [facility] BMI 2023-06-06 20:17:00 28.25 kg/m2 [facility] Systolic blood pressure 2023-05-25 19:35:00 145 mm[Hg] [facility] Diastolic blood pressure 2023-05-25 19:35:00 103 mm[Hg] [facility] Heart rate 2023-05-25 19:35:00 84 /min [facility] Body temperature 2023-05-25 19:35:00 36.72 Annabella [facility] Respiratory rate 2023-05-25 19:35:00 18 /min [facility] Body height 2023-05-25 19:35:00 188 cm [facility] Body weight 2023-05-25 19:35:00 99.791 kg [facility] BMI 2023-05-25 19:35:00 28.25 kg/m2 [facility] Oxygen saturation in Arterial blood by Pulse oximetry 2023-05-25 19:35:00 100 /min [facility] Systolic blood pressure 2023-05-16 15:17:00 136 mm[Hg] [facility] Diastolic blood pressure 2023-05-16 15:17:00 84 mm[Hg] [facility] Heart rate 2023-05-16 15:17:00 68 /min [facility] Body height 2023-05-16 15:17:00 188 cm [facility] Body weight 2023-05-16 15:17:00 99.791 kg [facility] BMI 2023-05-16 15:17:00 28.25 kg/m2 [facility] Systolic blood pressure 2023-04-30 15:51:00 130 mm[Hg] [facility] Diastolic blood pressure 2023-04-30 15:51:00 88 mm[Hg] [facility] Heart rate 2023-04-30 15:49:00 68 /min [facility] Respiratory rate 2023-04-30 15:49:00 18 /min [facility] Body height 2023-04-30 15:49:00 188 cm [facility] Body weight 2023-04-30 15:49:00 99.791 kg [facility] BMI 2023-04-30 15:49:00 28.25 kg/m2 [facility] Oxygen saturation in Arterial blood by Pulse oximetry 2023-04-30 15:49:00 98 /min [facility] Systolic blood pressure 2023-04-23 20:31:00 134 mm[Hg] [facility] Diastolic blood pressure 2023-04-23 20:31:00 87 mm[Hg] [facility] Heart rate 2023-04-23 20:31:00 78 /min [facility] Respiratory rate 2023-04-23 20:31:00 18 /min [facility] Body height 2023-04-23 20:31:00 182.9 cm [facility] Body weight 2023-04-23 20:31:00 100.925 kg [facility] BMI 2023-04-23 20:31:00 30.18 kg/m2 [facility] Oxygen saturation in Arterial blood by Pulse oximetry 2023-04-23 20:31:00 96 /min [facility] Systolic blood pressure 2023-01-03 19:17:00 136 mm[Hg] [facility] Diastolic blood pressure 2023-01-03 19:17:00 84 mm[Hg] [facility] Heart rate 2023-01-03 19:17:00 83 /min [facility] Body temperature 2023-01-03 19:13:00 36.61 Annabella [facility] Body height 2023-01-03 19:13:00 188 cm [facility] Body weight 2023-01-03 19:13:00 99.202 kg [facility] BMI 2023-01-03 19:13:00 28.08 kg/m2 [facility] Oxygen saturation in Arterial blood by Pulse oximetry 2023-01-03 19:13:00 98 /min [facility] Systolic blood pressure 2022-12-12 20:32:00 143 mm[Hg] [facility] Diastolic blood pressure 2022-12-12 20:32:00 92 mm[Hg] [facility] Heart rate 2022-12-12 20:19:00 92 /min [facility] Respiratory rate 2022-12-12 20:19:00 22 /min [facility] Body height 2022-12-12 20:19:00 188 cm [facility] Body weight 2022-12-12 20:19:00 97.977 kg [facility] BMI 2022-12-12 20:19:00 27.73 kg/m2 [facility] Oxygen saturation in Arterial blood by Pulse oximetry 2022-12-12 20:19:00 99 /min [facility] Systolic blood pressure 2022-12-12 01:19:00 151 mm[Hg] [facility] Diastolic blood pressure 2022-12-12 01:19:00 97 mm[Hg] [facility] Heart rate 2022-12-12 01:19:00 86 /min [facility] Respiratory rate 2022-12-12 01:19:00 18 /min [facility] Oxygen saturation in Arterial blood by Pulse oximetry 2022-12-12 01:19:00 99 /min [facility] Body temperature 2022-12-11 23:51:47 36.67 Annabella [facility] Body weight 2022-12-11 22:02:00 97.977 kg [facility] BMI 2022-12-11 22:02:00 27.73 kg/m2 [facility] Systolic blood pressure 2022-12-08 23:30:00 145 mm[Hg] [facility] Diastolic blood pressure 2022-12-08 23:30:00 95 mm[Hg] [facility] Heart rate 2022-12-08 23:30:00 61 /min [facility] Respiratory rate 2022-12-08 23:30:00 16 /min [facility] Oxygen saturation in Arterial blood by Pulse oximetry 2022-12-08 23:30:00 98 /min [facility] Body temperature 2022-12-08 20:26:00 36.78 Annabella [facility] Body height 2022-12-08 20:26:00 188 cm [facility] Body weight 2022-12-08 20:26:00 97.977 kg [facility] BMI 2022-12-08 20:26:00 27.73 kg/m2 [facility] Systolic blood pressure 2022-12-05 18:21:00 138 mm[Hg] [facility] Diastolic blood pressure 2022-12-05 18:21:00 100 mm[Hg] [facility] Heart rate 2022-12-05 18:21:00 77 /min [facility] Oxygen saturation in Arterial blood by Pulse oximetry 2022-12-05 18:21:00 98 /min [facility] Body temperature 2022-12-05 18:19:00 36.61 Annabella [facility] Respiratory rate 2022-12-05 18:19:00 18 /min [facility] Body height 2022-12-05 18:19:00 188 cm [facility] Body weight 2022-12-05 18:19:00 97.07 kg [facility] BMI 2022-12-05 18:19:00 27.48 kg/m2 [facility] Systolic blood pressure 2022-12-05 14:58:00 131 mm[Hg] [facility] Diastolic blood pressure 2022-12-05 14:58:00 93 mm[Hg] [facility] Heart rate 2022-12-05 14:50:00 86 /min [facility] Body temperature 2022-12-05 14:50:00 36.5 Annabella [facility] Respiratory rate 2022-12-05 14:50:00 18 /min [facility] Body height 2022-12-05 14:50:00 188 cm [facility] Body weight 2022-12-05 14:50:00 98.294 kg [facility] BMI 2022-12-05 14:50:00 27.82 kg/m2 [facility] Oxygen saturation in Arterial blood by Pulse oximetry 2022-12-05 14:50:00 99 /min [facility] Systolic blood pressure 2022-11-14 01:41:47 150 mm[Hg] [facility] Diastolic blood pressure 2022-11-14 01:41:47 106 mm[Hg] [facility] Heart rate 2022-11-14 01:41:47 64 /min [facility] Body temperature 2022-11-14 01:41:47 37.28 Annabella [facility] Respiratory rate 2022-11-14 01:41:47 18 /min [facility] Oxygen saturation in Arterial blood by Pulse oximetry 2022-11-14 01:41:47 98 /min [facility] Body height 2022-11-13 21:48:00 188 cm [facility] Body weight 2022-11-13 21:48:00 97.523 kg [facility] BMI 2022-11-13 21:48:00 27.60 kg/m2 [facility] Systolic blood pressure 2022-11-06 15:55:00 120 mm[Hg] [facility] Diastolic blood pressure 2022-11-06 15:55:00 76 mm[Hg] [facility] Heart rate 2022-11-06 15:55:00 67 /min [facility] Body temperature 2022-11-06 15:55:00 36.5 Annabella [facility] Body height 2022-11-06 15:55:00 188 cm [facility] Body weight 2022-11-06 15:55:00 97.523 kg [facility] BMI 2022-11-06 15:55:00 27.60 kg/m2 [facility] Oxygen saturation in Arterial blood by Pulse oximetry 2022-11-06 15:55:00 100 /min [facility] Systolic blood pressure 2022-08-07 19:14:00 110 mm[Hg] [facility] Diastolic blood pressure 2022-08-07 19:14:00 71 mm[Hg] [facility] Heart rate 2022-08-07 19:14:00 77 /min [facility] Body temperature 2022-08-07 19:14:00 36.94 Annabella [facility] Body height 2022-08-07 19:14:00 188 cm [facility] Body weight 2022-08-07 19:14:00 97.523 kg [facility] BMI 2022-08-07 19:14:00 27.60 kg/m2 [facility] Oxygen saturation in Arterial blood by Pulse oximetry 2022-08-07 19:14:00 100 /min [facility] Systolic blood pressure 2021-01-07 18:03:00 159 mm[Hg] hysterically crying and moving [facility] Diastolic blood pressure 2021-01-07 18:03:00 128 mm[Hg] hysterically crying and moving [facility] Heart rate 2021-01-07 18:03:00 109 /min [facility] Body temperature 2021-01-07 18:03:00 37.72 Annabella [facility] Respiratory rate 2021-01-07 18:03:00 18 /min [facility] Body weight 2021-01-07 18:03:00 113.399 kg [facility] BMI 2021-01-07 18:03:00 32.10 kg/m2 [facility] Oxygen saturation in Arterial blood by Pulse oximetry 2021-01-07 18:03:00 100 /min [facility] Systolic blood pressure 2021-01-07 18:03:00 159 mm[Hg] hysterically crying and moving [facility] Diastolic blood pressure 2021-01-07 18:03:00 128 mm[Hg] hysterically crying and moving [facility] Heart rate 2021-01-07 18:03:00 109 /min [facility] Body temperature 2021-01-07 18:03:00 37.72 Annabella [facility] Respiratory rate 2021-01-07 18:03:00 18 /min [facility] Body weight 2021-01-07 18:03:00 113.399 kg [facility] BMI 2021-01-07 18:03:00 32.10 kg/m2 [facility] Oxygen saturation in Arterial blood by Pulse oximetry 2021-01-07 18:03:00 100 /min [facility] Systolic blood pressure 2020-12-28 19:00:00 129 mm[Hg] [facility] Diastolic blood pressure 2020-12-28 19:00:00 83 mm[Hg] [facility] Heart rate 2020-12-28 19:00:00 71 /min [facility] Respiratory rate 2020-12-28 19:00:00 16 /min [facility] Oxygen saturation in Arterial blood by Pulse oximetry 2020-12-28 19:00:00 100 /min [facility] Body temperature 2020-12-28 17:10:00 36.28 Annabella [facility] Body height 2020-12-28 17:10:00 188 cm [facility] Body weight 2020-12-28 17:10:00 113.399 kg [facility] BMI 2020-12-28 17:10:00 32.10 kg/m2 [facility] Systolic blood pressure 2020-12-28 19:00:00 129 mm[Hg] [facility] Diastolic blood pressure 2020-12-28 19:00:00 83 mm[Hg] [facility] [facility] Heart rate 2020-12-28 19:00:00 71 /min [facility] Respiratory rate 2020-12-28 19:00:00 16 /min [facility] Oxygen saturation in Arterial blood by Pulse oximetry 2020-12-28 19:00:00 100 /min [facility] Body temperature 2020-12-28 17:10:00 36.28 Annabella [facility] Body height 2020-12-28 17:10:00 188 cm [facility] Body weight 2020-12-28 17:10:00 113.399 kg [facility] BMI 2020-12-28 17:10:00 32.10 kg/m2 [facility] Systolic blood pressure 2020-12-10 20:25:00 123 mm[Hg] [facility] Diastolic blood pressure 2020-12-10 20:25:00 81 mm[Hg] [facility] Heart rate 2020-12-10 20:25:00 66 /min [facility] Respiratory rate 2020-12-10 20:25:00 14 /min [facility] Oxygen saturation in Arterial blood by Pulse oximetry 2020-12-10 20:25:00 99 /min [facility] Body temperature 2020-12-10 16:12:00 37.22 Annabella [facility] Body height 2020-12-10 15:41:00 188 cm [facility] Body weight 2020-12-10 15:41:00 99.474 kg [facility] BMI 2020-12-10 15:41:00 28.16 kg/m2 [facility] Systolic blood pressure 2020-12-10 20:25:00 123 mm[Hg] [facility] Diastolic blood pressure 2020-12-10 20:25:00 81 mm[Hg] [facility] Heart rate 2020-12-10 20:25:00 66 /min [facility] Respiratory rate 2020-12-10 20:25:00 14 /min [facility] Oxygen saturation in Arterial blood by Pulse oximetry 2020-12-10 20:25:00 99 /min [facility] Body temperature 2020-12-10 16:12:00 37.22 Annabella [facility] Body height 2020-12-10 15:41:00 188 cm [facility] Body weight 2020-12-10 15:41:00 99.474 kg [facility] BMI 2020-12-10 15:41:00 28.16 kg/m2 [facility] Systolic blood pressure 2020-11-21 13:01:00 159 mm[Hg] [facility] Diastolic blood pressure 2020-11-21 13:01:00 100 mm[Hg] [facility] Heart rate 2020-11-21 13:01:00 72 /min [facility] Body temperature 2020-11-21 13:01:00 36.61 Annabella [facility] Respiratory rate 2020-11-21 13:01:00 18 /min [facility] Body weight 2020-11-21 13:01:00 97.523 kg [facility] BMI 2020-11-21 13:01:00 27.60 kg/m2 [facility] Oxygen saturation in Arterial blood by Pulse oximetry 2020-11-21 13:01:00 100 /min [facility] Systolic blood pressure 2020-11-21 13:01:00 159 mm[Hg] [facility] Diastolic blood pressure 2020-11-21 13:01:00 100 mm[Hg] [facility] Heart rate 2020-11-21 13:01:00 72 /min [facility] Body temperature 2020-11-21 13:01:00 36.61 Annabella [facility] Respiratory rate 2020-11-21 13:01:00 18 /min [facility] Body weight 2020-11-21 13:01:00 97.523 kg [facility] BMI 2020-11-21 13:01:00 27.60 kg/m2 [facility] Oxygen saturation in Arterial blood by Pulse oximetry 2020-11-21 13:01:00 100 /min [facility] Procedures Procedure Date / Time Performed Performing Clinician Source POCT MOLECULAR FLU 2023-12-20 17:56:00 Unknown, Attend ing [facility] POCT SARS-COV-2 ANTIGEN (BINAX NOW) 2023-12-20 17:55:00 Kathy Lux [facility] POCT MOLECULAR STREP 2023-12-20 17:53:00 Unknown, Attkatherin ríos [facility] ASSIGNMENT OF BENEFITS 2023-08-22 15:32:30 Docshakeel r Unassigned, [place] [facility] XR CHEST 2 VW 2023-08-12 22:55:39 Zohra Prater [facility] XR NECK SOFT TISSUE 2023-08-12 22:55:39 Adelia Prater [facility] ASSIGNMENT OF BENEFITS 2023-08-12 22:21:13 Docto r Unassigned, [place] [facility] CONSENT/REFUSAL FOR DIAGNOSIS AND TREATMENT 2023-08-12 21:44:30 Doctor Unassigned, [place] [facility] XR CERVICAL SPINE 2 VW 2023-07-05 15:20:41 Jessy son, Eddie Hernández [facility] MR SHOULDER LEFT WO CONTRAST 2023-06-04 17:59:00 Dharmesh Higgins [facility] CONSENT/REFUSAL FOR DIAGNOSIS AND TREATMENT 2023-05-25 19:24:17 Doctor Unassigned, [place] [facility] REFERRAL- REQUEST/RESPONSE 2023-05-16 06:01:00 Doctor Unassigned, [place] [facility] XR SHOULDER 2+ VW LEFT 2023-04-30 16:27:10 Kayla Begum [facility] VACCINATIONS - CONSENTS, ELIGIBILITY, HISTORY 2022-12-20 05:01:00 Doctor Unassigned, [place] [facility] COMP. METABOLIC PANEL (20775) 2022-12-11 23:36:00 Ivy Thakkar [facility] CBC WITH DIFF 2022-12-11 23:36:00 Ivy Thakkar [facility] URINALYSIS 2022-12-11 23:36:00 [facility] ([facility]UNOASSAY) - COMPREHENSIVE DRUG SCREEN W/O REFLEX 2022-12-11 23:36:00 Ivy Thakkar [facility] US SCROTUM AND CONTENTS 2022-12-11 23:27:01 Ivy Thakkar [facility] CONSENT/REFUSAL FOR DIAGNOSIS AND TREATMENT 2022-12-11 21:59:16 Doctor Unassigned, [place] [facility] ASSIGNMENT OF BENEFITS 2022-12-08 21:05:34 Docto r Unassigned, [place] [facility] LIPASE 2022-12-08 20:59:00 Amarilis Banuelos [facility] MAGNESIUM 2022-12-08 20:59:00 Amarilis Banuelos [facility] TROPONIN I 2022-12-08 20:59:00 Amarilis Banuelos [facility] THYROID STIMULATING HORMONE 2022-12-08 20:59:00 Amarilis Banuelos [facility] COMP. METABOLIC PANEL ([id number]) 2022-12-08 20:59:00 Amarilis Banuelos [facility] CBC WITH DIFF 2022-12-08 20:59:00 Amarilis Banuelos [facility] D-DIMER 2022-12-08 20:59:00 Amarilis Banuelos [facility] URINALYSIS 2022-12-08 20:59:00 Amarilis Banuelos [facility] URINE DRUG (IMMUNOASSAY) - COMPREHENSIVE DRUG SCREEN W/O REFLEX 2022-12-08 20:59:00 Amarilis Banuelos [facility] CONSENT/REFUSAL FOR DIAGNOSIS AND TREATMENT 2022-12-08 20:14:46 Doctor Unassigned, [place] [facility] CT ABDOMEN PELVIS WO CONTRAST 2022-12-05 20:49:00 Kaden Andrew [facility] ASSIGNMENT OF BENEFITS 2022-12-05 20:38:36 Docto r Unassigned, [place] [facility] EXTERNAL PROVIDER RECORDS 2022-11-27 05:01:00 Doctor Unassigned, [place] [facility] US TESTICULAR TORSION 2022-11-13 23:53:44 Gaurav Esparza [facility] ASSIGNMENT OF BENEFITS 2022-11-13 23:53:42 Docto r Unassigned, [place] [facility] BASIC METABOLIC PANEL (NA, K, CL, CO2, GLUCOSE, BUN, CREATININE, CA) 2022-11-13 23:02:00 Gaurav Esparza [facility] CBC WITH DIFF 2022-11-13 23:02:00 Gaurav Esparza [facility] URINALYSIS 2022-11-13 23:02:00 Gaurav Esparza [facility] NOTICE OF PRIVACY PRACTICES 2022-11-13 21:34:09 Doctor Unassigned, [place] [facility] CONSENT/REFUSAL FOR DIAGNOSIS AND TREATMENT 2022-11-13 21:33:31 Doctor Unassigned, [place] [facility] URINE CULTURE 2022-11-06 16:40:00 Alena Min [facility] POCT URINALYSIS 2022-11-06 16:30:[address] [facility] TO RELEASE PHI TO [facility] 2022-11-06 05:01:00 Doctor Unassigned, [place] [facility] CONSENT/REFUSAL FOR DIAGNOSIS AND TREATMENT 2021-01-07 17:59:07 Doctor Unassigned, [place] [facility] CT ABDOMEN PELVIS W CONTRAST 2020-12-28 18:45:34 Alvarez Archer [facility] LIPASE 2020-12-28 17:39:00 [facility]varez [facility] COMP. METABOLIC PANEL ([id number]) 2020-12-28 17:39:00 Alvarez Archer [facility] CBC WITH DIFF 2020-12-28 17:39:00 Alvarez Archer [facility] URINALYSIS 2020-12-28 17:39:00 Alvarez Archer [facility] CONSENT/REFUSAL FOR DIAGNOSIS AND TREATMENT 2020-12-28 16:58:57 Doctor Unassigned, [place] [facility] PROTHROMBIN TIME / INR 2020-12-10 15:10:00 Rashawn Berman [facility] ACTIVATED PARTIAL THRMPLAS JENNIFER 2020-12-10 15:10:00 Barrington Berman [facility] URINE DRUG (IMMUNOASSAY) - COMPREHENSIVE DRUG SCREEN 2020-12-10 13:45:00 Barrington Berman [facility] URINALYSIS 2020-12-10 13:45:[address] [facility] COVID-19 (ID NOW RAPID TESTING) 2020-12-10 12:46:00 Barrington Berman [facility] SALICYLATE 2020-12-10 12:18:00 Barrington Berman [facility] LACTIC ACID WHOLE BLOOD 2020-12-10 12:15:00 Do gladys Berman [facility] LIPASE 2020-12-10 12:13:[address] [facility] MAGNESIUM 2020-12-10 12:13:[address] [facility] HEPATIC FUNCTION PANEL ([id number]) (ALB,T.PRO,BILI T,BU/BC,ALT,AST,ALK PHOS) 2020-12-10 12:13:00 Barrington Berman [facility] BASIC METABOLIC PANEL (NA, K, CL, CO2, GLUCOSE, BUN, CREATININE, CA) 2020-12-10 12:13:00 Barrington Berman [facility] ETHANOL 2020-12-10 12:13:[address] [facility] CBC WITH DIFF 2020-12-10 12:13:00 Barrington Berman [facility] HB ECG ROUTINE & RHYTHM STRIP 2020-12-10 12:01:59 Barrington Berman [facility] CONSENT/REFUSAL FOR DIAGNOSIS AND TREATMENT 2020-12-10 11:46:13 Doctor Unassigned, [place] [facility] NOTICE OF PRIVACY PRACTICES 2020-11-21 12:58:09 Doctor Unassigned, [place] [facility] CONSENT/REFUSAL FOR DIAGNOSIS AND TREATMENT 2020-11-21 12:57:43 Doctor Unassigned, [place] [facility] Plan of Care Planned Activity Planned Date Details Comments Source Encounters Start Date/Time End Date/Time Encounter Type Admission Type Attending [facility] Care Department Encounter ID Source 2024-03-02 00:00:00 2024-03-03 09:49:39 Refill Kayla Grimes [facility] 1.2.840.114 350.1.13.10 4.2.7.2.686 [id number] [facility] 2024-02-06 11:00:00 2024-02-06 11:00:00 Outpatient R KAYLA GRIMES [facility] [id number] [facility] 2024-01-23 13:00:00 2024-01-23 13:00:00 Outpatient R KAYLA GRIMES [facility] [id number] [facility] 2024-01-22 17:25:37 2024-01-22 17:25:37 Outpatient [facility] [id number] Marty Larsen 2024-01-21 14:20:00 2024-01-21 14:20:00 Outpatient R KAYLA GRIMES [facility] [id number] [facility] 2023-12-25 00:00:00 2023-12-25 12:40:04 Refill Kathy Lux [facility] 1.2.840.114 350.1.13.10 4.2.7.2.686 [id number] [facility] 2023-12-24 00:00:00 2023-12-25 09:44:00 Telephone Kayla Grimes [facility] 1.2.840.114 350.1.13.10 4.2.7.2.686 [id number] [facility] 2023-12-20 11:40:00 2023-12-20 13:33:48 Outpatient R KATHY LUX [facility] [id number] [facility] 2023-12-20 11:40:00 2023-12-20 12:00:00 Urgent Care Kathy Lux Jatin, Attending [facility] 1.2.840.114 350.1.13.10 4.2.7.2.686 [id number] [facility] 2023-12-12 13:40:00 2023-12-12 13:40:00 Outpatient R KAYLA GRIMES [facility] [id number] [facility] 2023-12-05 00:00:00 2023-12-05 13:39:41 Telephone Kayla Grimes [facility] 1.2.840.114 350.1.13.10 4.2.7.2.686 [id number] [facility] 2023-11-01 15:15:00 2023-11-01 15:15:00 Outpatient R EDDIE DAVIS [facility] [id number] [facility] 2023-10-30 11:00:00 2023-10-30 11:00:00 Outpatient R KAYLA GRIMES [facility] [id number] [facility] 2023-10-30 00:00:00 2023-10-30 00:00:00 Telephone Nicole Wooten 1.2.840.114 350.1.13.10 4.2.7.2.686 [id number] [facility] 2023-10-23 00:00:00 2023-10-23 00:00:00 Pre Visit Outreach Alexandrea BarberJosue GRICELDA GIMENEZ 1.2840.114 350.1.13.10 4.2.7.2.686 [id number] [facility] 2023-10-22 16:00:00 2023-10-22 16:00:00 Outpatient R EDDIE DAVIS [facility] [id number] [facility] 2023-10-09 00:00:00 2023-10-09 00:00:00 Refill Kayla Grimes [facility] 1.2.840.114 350.1.13.10 4.2.7.2.686 [id number] [facility] 2023-09-16 00:00:00 2023-09-16 00:00:00 Telephone Nicole Wooten MADISONHelena GIMENEZ 1.2840.114 350.1.13.10 4.2.7.2.686 [id number] [facility] 2023-09-10 11:00:00 2023-09-10 11:00:00 Outpatient R [facility] [id number] [facility] 2023-09-10 00:00:00 2023-09-10 00:00:00 Case Management Sebastian Rea [facility] 1.840.114 350.1.13.10 4.2.7.2.686 [id number] [facility] 2023-09-05 00:00:00 2023-09-05 00:00:00 Telephone Nicole Wooten MADISONHelena GIMENEZ 1.2840.114 350.1.13.10 4.2.7.2.686 [id number] [facility] 2023-09-03 15:15:00 2023-09-03 15:15:00 Outpatient R [facility] [id number] [facility] 2023-08-28 08:45:00 2023-08-28 08:45:00 Outpatient R LORENA SAAVEDRA CRAIG [facility] [id number] [facility] 2023-08-28 00:00:00 2023-08-28 00:00:00 Telephone Nicole Wooten [place] 1.2.840.114 350.1.13.10 4.2.7.2.686 [id number] [facility] 2023-08-26 00:00:00 2023-08-26 00:00:00 Telephone Nicole Wooten [place] 1.2840.114 350.1.13.10 4.2.7.2.686 [id number] [facility] 2023-08-23 00:00:00 2023-08-23 00:00:00 Telephone Nicole WootenY [place] 1.2840.114 350.1.13.10 4.2.7.2.686 [id number] [facility] 2023-08-22 08:45:00 2023-08-22 09:30:00 Ancillary Visit Sebastian Rea Jeremy Samuel [facility] 1.2840.114 350.1.13.10 4.2.7.2.686 [id number] [facility] 2023-08-22 00:00:00 2023-08-22 00:00:00 Orders Only Doctor Unassigned, [place] [facility] 1.2840.114 350.1.13.10 4.2.7.2.686 [id number] [facility] 2023-08-16 09:30:00 2023-08-16 10:15:00 Ancillary Visit Sebastian Rea Craig L [facility] 1.2.840.114 350.1.13.10 4.2.7.2.686 [id number] [facility] 2023-08-12 15:58:00 2023-08-12 18:23:00 Emergency X ZOHRA PRATER [facility] ERT [id number] [facility] 2023-08-12 15:58:00 2023-08-12 18:23:00 Emergency Zohra Prater [facility] 1.2.840.114 350.1.13.10 4.2.7.2.686 [id number] [facility] 2023-08-09 08:00:00 2023-08-09 09:22:33 Ancillary Visit Val Bell Craig [facility] 1.2.840.114 350.1.13.10 4.2.7.2.686 [id number] [facility] 2023-08-09 00:00:00 2023-08-09 00:00:00 Telephone Nicole Wooten 1.2.840.114 350.1.13.10 4.2.7.2.686 [id number] [facility] 2023-08-06 11:19:47 2023-08-06 11:19:47 Outpatient [facility] [id number] Marty Larsen 2023-08-06 11:00:00 2023-08-06 11:00:00 Outpatient R KAYLA GRIMES [facility] [id number] [facility] 2023-08-02 08:45:00 2023-08-02 08:45:00 Outpatient R [facility] [id number] [facility] 2023-07-26 00:00:00 2023-07-26 00:00:00 Telephone Nicole Wooten 1.2840.114 350.1.13.10 4.2.7.2.686 [id number] [facility] 2023-07-25 13:40:52 2023-07-25 13:40:52 Outpatient [facility] [id number] Marty Larsen 2023-07-19 09:30:00 2023-07-19 09:30:00 Outpatient R EDDIE DAVIS [facility] [id number] [facility] 2023-07-12 10:23:23 2023-07-12 10:23:23 Outpatient [facility] [id number] Marty Larsen 2023-07-11 00:00:00 2023-07-11 00:00:00 Telephone Nicole Wooten 1..840.114 350.1.13.10 4.2.7.2.686 [id number] [facility] 2023-07-05 09:14:31 2023-07-05 23:59:00 Outpatient R EDDIE DAVIS [facility] [id number] [facility] 2023-07-05 09:14:31 2023-07-05 23:59:00 Hospital Encounter Eddie Davis [facility] [place] [facility] .840.114 350.1.13.10 4.2.7.2.686 [id number] [facility] 2023-07-05 09:30:00 2023-07-05 09:50:18 Office Visit Eddie Davis [facility] ..840.114 350.1.13.10 4.2.7.2.686 [id number] [facility] 2023-06-12 00:00:00 2023-06-12 00:00:00 Telephone Eddie Davis [facility] 1.840.114 350.1.13.10 4.2.7.2.686 [id number] [facility] 2023-06-07 10:58:30 2023-06-07 10:58:30 Outpatient [facility] [id number] Marty Larsen 2023-06-06 14:15:00 2023-06-06 14:33:21 Outpatient R LORENA SAAVEDRA CRAIG [facility] [id number] [facility] 2023-06-06 14:15:00 2023-06-06 14:33:21 Office Visit Lorena Saavedra [facility] 1.2840.114 350.1.13.10 4.2.7.2.686 [id number] [facility] 2023-06-05 00:00:00 2023-06-05 00:00:00 Patient Secure Msg Doctor Unassigned, [place] [facility] 1.20.114 350.1.13.10 4.2.7.2.686 [id number] [facility] 2023-06-04 10:58:16 2023-06-04 23:59:00 Outpatient R DHARMESH HIGGINS [facility] [id number] [facility] 2023-06-04 10:58:16 2023-06-04 23:59:00 Hospital Encounter Dharmesh Higgins S [facility] 1.2840.114 350.1.13.10 4.2.7.2.686 [id number] [facility] 2023-05-27 00:00:00 2023-05-27 00:00:00 Telephone Nicole Wooten 1.2840.114 350.1.13.10 4.2.7.2.686 [id number] [facility] 2023-05-26 09:40:00 2023-05-26 09:40:00 Outpatient R [facility] [id number] [facility] 2023-05-25 13:37:00 2023-05-25 14:30:00 Emergency X GORDON NORWOOD [facility] ERT [id number] [facility] 2023-05-25 13:37:00 2023-05-25 14:30:00 Emergency Gordon Norwood E [facility] 1..840.114 350.1.13.10 4.2.7.2.686 [id number] [facility] 2023-05-24 15:40:00 2023-05-24 15:40:00 Outpatient R KAYLA GRIMES [facility] [id number] [facility] 2023-05-22 00:00:00 2023-05-22 00:00:00 Telephone Dharmesh Higgins [facility] 1.2.840.114 350.1.13.10 4.2.7.2.686 [id number] [facility] 2023-05-22 00:00:00 2023-05-22 00:00:00 Patient Secure Msg Doctor Unassigned, [place] [facility] 1.2.840.114 350.1.13.10 4.2.7.2.686 [id number] [facility] 2023-05-21 00:00:00 2023-05-21 00:00:00 Tele[facility] 1.2.840.114 350.1.13.10 4.2.7.2.686 [id number] [facility] 2023-05-17 09:07:43 2023-05-17 09:07:43 Outpatient [facility] [id number] Marty Larsen 2023-05-17 00:00:00 2023-05-17 00:00:00 Telephone [place] 1.20.114 350.1.13.10 4.2.7.2.686 [id number] [facility] 2023-05-16 09:30:00 2023-05-16 10:00:00 Office Visit Dharmesh Higgins [facility] 1.20.114 350.1.13.10 4.2.7.2.686 [id number] [facility] [facility] 2023-05-16 09:30:00 2023-05-16 09:46:59 Outpatient DHARMESH MCDONALD [facility] [id number] [facility] 2023-05-16 00:00:00 2023-05-16 00:00:00 Orders Only Doctor Unassigned, [place] [facility] 1.0.114 350.1.13.10 4.2.7.2.686 [id number] [facility] 2023-05-10 11:00:00 2023-05-10 11:00:00 Outpatient DHARMESH MCDONALD [facility] [id number] [facility] 2023-05-03 11:23:35 2023-05-03 11:23:35 Outpatient [facility] [id number] Marty Larsen 2023-05-01 00:00:00 2023-05-01 00:00:00 [place]phone [place] 1.2840.114 350.1.13.10 4.2.7.2.686 [id number] 086 [id number] [facility] 2023-05-01 00:00:00 2023-05-01 00:00:00 Telephone Nicole WootenN [place] 1.2840.114 350.1.13.10 4.2.7.2.686 [id number] [facility] 2023-05-01 00:00:00 2023-05-01 00:00:00 Telephone Wooten Nicole GIMENEZ 1.2.840.114 350.1.13.10 4.2.7.2.686 [id number] [facility] 2023-04-30 11:15:20 2023-04-30 23:59:00 Outpatient R SYDNEY KAYLA [facility] [id number] [facility] 2023-04-30 11:15:20 2023-04-30 23:59:00 [facility] 1.2.840.114 350.1.13.10 4.2.7.2.686 [id number] [facility] 2023-04-30 10:20:00 2023-04-30 11:39:43 Office Visit Sydney Kayla Geeta [facility] 1.2.840.114 350.1.13.10 4.2.7.2.686 [id number] 044 [id number] [facility] 2023-04-30 11:14:49 2023-04-30 11:14:49 [facility] 1.2.840.114 350.1.13.10 4.2.7.2.686 [id number] [facility] 2023-04-30 08:58:42 2023-04-30 08:58:42 Outpatient [facility] [id number] Marty Larsen 2023-04-28 17:00:00 2023-04-28 17:00:00 Outpatient R [facility] [id number] [facility] 2023-04-25 14:30:00 2023-04-25 14:30:00 Outpatient R [facility] [id number] [facility] 2023-04-24 00:00:00 2023-04-24 00:00:00 Telephone Tylor Newman [facility] 1..114 350.1.13.10 4.2.7.2.686 [id number] [facility] 2023-04-24 00:00:00 2023-04-24 00:00:00 Telephone Nicole Wooten 1.0.114 350.1.13.10 4.2.7.2.686 [id number] [id number] [facility] 2023-04-23 15:40:00 2023-04-23 16:11:36 Outpatient R KAYLA GRIMES [facility] [id number] [facility] 2023-04-23 15:40:00 2023-04-23 16:11:36 Office Visit Kayla Grimes [facility] 1..114 350.1.13.10 4.2.7.2.686 [id number] [facility] 2023-04-17 00:00:00 2023-04-17 00:00:00 Telephone Nicole Wooten [place] 1..114 350.1.13.10 4.2.7.2.686 [id number] 086 [id number] [facility] 2023-04-16 13:21:44 2023-04-16 13:21:44 Outpatient [facility] [id number] Marty Larsen 2023-04-16 00:00:00 2023-04-16 00:00:00 Refill Kayla Grimes [facility] 1..114 350.1.13.10 4.2.7.2.686 [id number] 044 [id number] [facility] 2023-04-16 00:00:00 2023-04-16 00:00:00 RefKayla Powers [facility] 1.84.114 350.1.13.10 4.2.7.2.686 [id number] [facility] 2023-04-16 00:00:00 2023-04-16 00:00:00 Telephone Je Nicole Kvng MARCELOJosue GRICELDA GIM[place]Z 1..114 350.1.13.10 4.2.7.2.686 [id number] [facility] 2023-04-12 11:00:00 2023-04-12 11:00:00 Outpatient R KAYLA GRIMES [facility] [id number] [facility] 2023-04-10 13:40:00 2023-04-10 13:40:00 Outpatient R KAYLA GRIMES [facility] [id number] [facility] 2023-04-04 08:41:26 2023-04-04 08:41:26 Outpatient [facility] [id number] Marty Larsen 2023-03-13 08:40:00 2023-03-13 08:40:00 Outpatient R KAYLA GRIMES [facility] [id number] [facility] 2023-03-11 00:00:00 2023-03-11 00:00:00 Patient Secure Msg Kayla Grimes [facility] 1.84.114 350.1.13.10 4.2.7.2.686 [id number] [facility] 2023-03-11 00:00:00 2023-03-11 00:00:00 Tylor Camacho [facility] 1..114 350.1.13.10 4.2.7.2.686 [id number] [facility] 2023-03-07 08:47:58 2023-03-07 08:47:58 Outpatient SCOOTER [facility] [id number] Marty Larsen 2023-01-03 14:00:00 2023-01-03 14:52:06 Outpatient R [facility] [id number] [facility] 2023-01-03 14:00:00 2023-01-03 14:52:06 Office Visit Tylor Newman [facility] 1..840.114 350.1.13.10 4.2.7.2.686 [id number] [facility] 2023-01-02 13:00:00 2023-01-02 13:00:00 [facility] [id number] [facility] 2023-01-02 10:30:00 2023-01-02 10:30:00 Outpatient R [facility] [id number] [facility] 2022-12-31 00:00:00 2022-12-31 00:00:00 Refill Mechelle Critical access hospital?[facility] 1..840.114 350.1.13.10 4.2.7.2.686 [id number] [facility] 2022-12-30 00:00:00 2022-12-30 00:00:00 Refill Mechelle Critical access hospital?[facility] 1..840.114 350.1.13.10 4.2.7.2.686 [id number] [facility] 2022-12-28 12:45:00 2022-12-28 12:45:00 Outpatient R SULMA PEREZ [facility] [id number] [facility] 2022-12-26 11:20:00 2022-12-26 11:20:00 Outpatient R KAYLA GRIMES [facility] [id number] [facility] 2022-12-20 00:00:00 2022-12-20 00:00:00 Orders Only Doctor Unassigned, [place] [facility] 1.2840.114 350.1.13.10 4.2.7.2.686 [id number] [facility] 2022-12-17 00:00:00 2022-12-17 00:00:00 Patient Secure Msg Kayla Grimes [facility] 1..840.114 350.1.13.10 4.2.7.2.686 [id number] 044 [id number] [facility] 2022-12-17 00:00:00 2022-12-17 00:00:00 Patient Outreach Sheila Magallanes [facility] 1..840.114 350.1.13.10 4.2.7.2.686 [id number] [id number] [facility] 2022-12-13 00:00:00 2022-12-13 00:00:00 Telephone Kayla Grimes [facility] 1.2840.114 350.1.13.10 4.2.7.2.686 [id number] [id number] [facility] 2022-12-12 15:20:00 2022-12-12 16:04:33 Outpatient R KAYLA GRIMES [facility] [id number] [facility] 2022-12-12 15:20:00 2022-12-12 16:04:33 Office Visit Kayla Grimes [facility] 1.2840.114 350.1.13.10 4.2.7.2.686 [id number] [id number] [facility] 2022-12-11 17:05:00 2022-12-11 20:26:00 Emergency X IVY THAKKAR [facility] ERT [id number] [facility] 2022-12-11 17:05:00 2022-12-11 20:26:00 Emergency Ivy Thakkar F [facility] 1.2840.114 350.1.13.10 4.2.7.2.686 [id number] [facility] 2022-12-11 09:30:00 2022-12-11 09:30:00 Outpatient R [facility] [id number] [facility] 2022-12-08 15:30:00 2022-12-08 18:50:00 Emergency X AMARILIS BANUELOS [facility] ERT [id number] [facility] 2022-12-08 15:30:00 2022-12-08 18:50:00 Emergency Amarilis Banuelos G [facility] 1.840.114 350.1.13.10 4.2.7.2.686 [id number] [id number] [facility] 2022-12-06 00:00:00 2022-12-06 00:00:00 Patient Secure BeatakvngAlena [facility] 1.2840.114 350.1.13.10 4.2.7.2.686 [id number] [id number] [facility] 2022-12-06 00:00:00 2022-12-06 00:00:[address] [facility] 1.2840.114 350.1.13.10 4.2.7.2.686 [id number] [facility] 2022-12-05 15:30:00 2022-12-05 23:59:00 Hospital Encounter Kaden Andrew [facility] 1.2.840.114 350.1.13.10 4.2.7.2.686 [id number] [facility] 2022-12-05 13:30:00 2022-12-05 15:18:[address] [facility] 1.2.840.114 350.1.13.10 4.2.7.2.686 [id number] [facility] 2022-12-05 10:20:00 2022-12-05 10:20:00 Office Visit Kayla Grimes [facility] 1.2840.114 350.1.13.10 4.2.7.2.686 [id number] 044 [id number] [facility] 2022-12-05 10:20:00 2022-12-05 10:16:52 Outpatient R KAYLA GRIMES [facility] [id number] [facility] 2022-12-05 08:45:00 2022-12-05 08:45:00 Outpatient R PRIYANKA RIVERA [facility] [id number] [facility] 2022-12-05 00:00:00 2022-12-05 00:00:00 Orders Only Doctor Unassigned, [place] [facility] 1.2840.114 350.1.13.10 4.2.7.2.686 [id number] [facility] 2022-12-04 00:00:00 2022-12-04 00:00:00 Telephone Jena Veloz 1.2.840.114 350.1.13.10 4.2.7.2.686 [id number] [facility] 2022-11-27 15:30:00 2022-11-27 16:29:39 Outpatient R KADEN ANDREW [facility] [id number] [facility] 2022-11-27 00:00:00 2022-11-27 00:00:00 Orders Only Doctor Unassigned, [place] [facility] 1.20.114 350.1.13.10 4.2.7.2.686 [id number] [facility] 2022-11-21 00:00:00 2022-11-21 00:00:00 Patient Secure Msg Doctor Unassigned, [place] [facility] 1..114 350.1.13.10 4.2.7.2.686 [id number] [facility] 2022-11-20 08:00:00 2022-11-20 08:00:00 Outpatient R BERNARDO DUGGAN [facility] [id number] [facility] 2022-11-14 00:00:00 2022-11-14 00:00:00 Telephone Alena Min [facility] 1.114 350.1.13.10 4.2.7.2.686 [id number] [id number] [facility] 2022-11-13 16:53:00 2022-11-13 20:55:00 Emergency X GAURAV ESPARZA [facility] ERT [id number] [facility] 2022-11-13 16:53:00 2022-11-13 20:55:00 Emergency Gaurav Esparza T [facility] 1.114 350.1.13.10 4.2.7.2.686 [id number] [facility] 2022-11-13 08:00:00 2022-11-13 08:15:00 Spanish Language Lecturer Visit Lab, [facility] - Kiet Min [facility] 1.2.840.114 350.1.13.10 4.2.7.2.686 [id number] [facility] 2022-11-13 08:00:00 2022-11-13 08:00:00 Outpatient R ALENA MIN [facility] [id number] [facility] 2022-11-13 00:00:00 2022-11-13 00:00:00 Telephone [facility] 1.114 350.1.13.10 4.2.7.2.686 [id number] [facility] 2022-11-12 12:00:00 2022-11-12 12:00:00 Outpatient R [facility] [id number] [facility] 2022-11-12 00:00:00 2022-11-12 00:00:00 Telephone Alena Min [facility] 1.114 350.1.13.10 4.2.7.2.686 [id number] [facility] 2022-11-12 00:00:00 2022-11-12 00:00:00 Telephone Alena Min [facility] 1.114 350.1.13.10 4.2.7.2.686 [id number] [facility] 2022-11-12 00:00:00 2022-11-12 00:00:00 Telephone Alena Min [facility] 1.114 350.1.13.10 4.2.7.2.686 [id number] 044 [id number] [facility] 2022-11-09 00:00:00 2022-11-09 00:00:00 Telephone Alena Min [facility] 1.114 350.1.13.10 4.2.7.2.686 [id number] [facility] 2022-11-07 00:00:00 2022-11-07 00:00:00 Telephone Beatakvng Alena [facility] 1.840.114 350.1.13.10 4.2.7.2.686 [id number] [id number] [facility] 2022-11-06 11:00:00 2022-11-06 12:34:42 Outpatient R ALENA MIN [facility] [id number] [facility] 2022-11-06 11:00:00 2022-11-06 12:34:42 Office Visit Mechelle Alena [facility] 1.840.114 350.1.13.10 4.2.7.2.686 [id number] [facility] 2022-11-06 00:00:00 2022-11-06 00:00:00 Orders Only Doctor Unassigned, [place] [facility] 1.84.114 350.1.13.10 4.2.7.2.686 [id number] [facility] 2022-11-02 15:30:00 2022-11-02 15:30:00 Outpatient R ALENA MIN [facility] [id number] [facility] 2022-10-22 00:00:00 2022-10-22 00:00:00 [facility] 1.840.114 350.1.13.10 4.2.7.2.686 [id number] [facility] 2022-08-21 09:30:00 2022-08-21 09:30:00 Outpatient R ALENA MIN [facility] [id number] [facility] 2022-08-07 13:00:00 2022-08-07 13:48:52 Outpatient R ALENA MIN [facility] [id number] [facility] 2022-08-07 13:00:00 2022-08-07 13:48:52 Office Visit Alena Min [facility] 1.2.840.114 350.1.13.10 4.2.7.2.686 [id number] [facility] 2022-08-07 00:00:00 2022-08-07 00:00:00 Telephone [facility] 1.2.840.114 350.1.13.10 4.2.7.2.686 [id number] [facility] 2021-01-07 13:07:00 2021-01-07 13:25:00 Emergency Thi Trent [facility] 1.2.840.114 350.1.13.10 4.2.7.2.686 [id number] 084 [id number] 2021-01-07 13:07:00 2021-01-07 13:25:00 Emergency Thi Trent [facility] 1.2.840.114 350.1.13.10 4.2.7.2.686 [id number] 084 [id number] [facility] 2021-01-07 12:59:00 2021-01-07 12:59:00 Emergency X [facility] ERT [id number] [facility] 2021-01-07 00:00:00 2021-01-07 00:00:00 Orders Only Doctor Unassigned, [place] [facility] 1.2.840.114 350.1.13.10 4.2.7.2.686 [id number] 2021-01-07 00:00:00 2021-01-07 00:00:00 Orders Only Doctor Unassigned, [place] [facility] 1.2.840.114 350.1.13.10 4.2.7.2.686 [id number] [facility] 2020-12-28 12:12:00 2020-12-28 14:45:00 Emergency Alvarez [facility] 1.2.840.114 350.1.13.10 4.2.7.2.686 [id number] 084 [id number] 2020-12-28 12:12:00 2020-12-28 14:45:00 Emergency Alvarez [facility] 1.2.840.114 350.1.13.10 4.2.7.2.686 [id number] [facility] 2020-12-28 11:59:00 2020-12-28 11:59:00 Emergency X [facility] ERT [id number] [facility] 2020-12-10 06:50:00 2020-12-10 15:30:00 Emergency Rashawn Bermanshayy Amadorvictorino [facility] 1.2.840.114 350.1.13.10 4.2.7.2.686 [id number] 2020-12-10 06:50:00 2020-12-10 15:30:00 Emergency Cullen Barrington Dexter [facility] 1.2.840.114 350.1.13.10 4.2.7.2.686 [id number] [facility] 2020-12-10 06:47:00 2020-12-10 06:47:00 Emergency X [facility] ERT [id number] [facility] 2020-12-10 00:00:00 2020-12-10 00:00:00 Orders Only Doctor Unassigned, [place] [facility] 1.2.840.114 350.1.13.10 4.2.7.2.686 [id number] 2020-12-10 00:00:00 2020-12-10 00:00:00 Orders Only Doctor Unassigned, [place] [facility] 1.2.840.114 350.1.13.10 4.2.7.2.686 [id number] [id number] [facility] 2020-11-21 08:03:00 2020-11-21 08:39:00 Emergency Daljit Velasco [facility] 1.2.840.114 350.1.13.10 4.2.7.2.686 [id number] 084 [id number] 2020-11-21 08:03:00 2020-11-21 08:39:00 Emergency Daljit Velasco [facility] 1.2.840.114 350.1.13.10 4.2.7.2.686 [id number] [id number] [facility] 2020-11-21 08:03:00 2020-11-21 08:03:00 Emergency X DALJIT VELASCO [facility] ERT [id number] [facility] Results Test Description Test Time Test Comments Results Result Co mments Source [facility] Molecular [id number] 18:07:45* Test Item Value Reference Range Interpretation Comme nts POCT Molecular FluA (test co de = 19578-5) Negative Negative POCT Molecular FluB (test co de = 35849-6) Negative Negative Lab Interpretation (test cod e = 01369-9) Normal [facility] MOLECULAR [id number] 18:00:56* Test Item Value Reference Range Interpretation Comme nts POCT Molecular Strep (test c ode = 74387-3) Negative Negative Lab Interpretation (test cod e = 63415-6) Normal [facility] [id number] 23:40:20ORDERING PHYSICIAN: ZOHRA PRATER HISTORY: 28 years old, Male, foreign body sensation in throat after taking3 pills , feeling of something stuck in throat TECHNIQUE: XR NECK SOFT TISSUE COMPARISON: none FINDINGS: Prevertebral soft tissues are normal. No radiopaque foreign bodyidentified. Bones appear intact.[facility] CHEST 2 [id number] 23:03:32EXAM: XR CHEST 2 VW COMPARISON: 12/08/2022 HISTORY: foreign body senation in throat , s/p swallowing p ills without anyliquidsUnChildress [facility] CenterXR CERVICAL SPINE 2 VW 2023-07-05 16:43:54EXAM: XR CERVICAL SPINE 2 VW HISTORY: neck pain COMPARISON: Cervical spine radiograph dated 03/24/2015[facility] Center[facility]. METABOLIC PANEL (16095)2022-12-12 00:37:54* Test Item Value Reference Range Interpretation Comme nts NA (test code = 0869763764) 142 mmol/L 135-145 K (test code = 5102415354) 4.1 mmol/L 3.5-5.0 CL (test code = 9609732430) 105 mmol/L 98-108 CO2 TOTAL (test code = 6359424927) 26 mmol/L 23-31 AGAP (test code = 8650239425) 11 2-16 BUN (test code = 4651449769) 15 mg/dL 7-23 GLUCOSE (test code = 3395297048) 97 mg/dL 70-110 CREATININE (test code = 2361661521) 1.03 mg/dL 0.60-1.25 TOTAL BILI (test code = 1707366647) 0.7 mg/dL 0.1-1.1 CALCIUM (test code = 8082987642) 10.0 mg/dL 8.6-10.6 T PROTEIN (test code = 8039925014) 8.3 g/dL 6.3-8.2 H ALBUMIN (test code = 7805755417) 5.1 g/dL 3.5-5.0 H ALK PHOS (test code = 6055842660) 66 U/L 34-122 ALTv (test code = 1742-6) 44 U/L 5-50 AST(SGOT) (test code = 5130754743) 30 U/L 13-40 eGFR (test code = 5735255891) 85.4 mL/min/1.73m2 DESIREE (test code = DESIREE) [...] imaging tests). Lab Interpretation (test code = 32128-9) Abnormal [facility] WITH [id number] 00:12:33* Test Item Value Reference Range Interpretation Comme nts WBC (test code = 6690-2) 7.70 See_Comment [PerBlue] The system which generated this result transmitted reference range: 4.20 - 10.70 10*3/?L. The reference range was not used to interpret this result as normal/abnormal. RBC (test code = 789-8) 5.28 See_Comment [PerBlue] The system which generated this result transmitted [...] g/dL 31.2-35.0 H RDW-SD (test code = 93912-2) 38.6 fL 38.5-51.6 RDW-CV (test code = 788-0) 12.0 % 12.1-15.4 L PLT (test code = 777-3) 328 See_Comment [Automated messa ge] The system which generated this result transmitted reference range: 150 - 328 10*3/?L. The reference range was not used to interpret this result as normal/abnormal. MPV (test code = 47457-0) 9.4 fL 9.8-13.0 L NRBC/100 WBC (test code = 7752575231) 0.0 See_Comment [Automated [employer] ssage] The system which generated this result transmitted reference range: 0.0 - 10.0 /100 WBCs. The reference range was not used to interpret this result as normal/abnormal. NRBC x10^3 (test code = 9435334142) See_Comment [Automated messa ge] The system which generated this result transmitted reference range: 10*3/?L. The reference range was not used to interpret this result as normal/abnormal. GRAN MAT (NEUT) % (test code = 770-8) 69.1 % IMM GRAN % (test code = 9241143071) 0.30 % LYMPH % (test code = 736-9) 23.8 % MONO % (test code = 5905-5) 5.8 % EOS % (test code = 713-8) 0.5 % BASO % (test code = 706-2) 0.5 % GRAN MAT x10^3(ANC) (test code = 1988608094) 5.32 10*3/uL 1.99-6.95 IMM GRAN x10^3 (test code = 6463822053) 0.00-0.06 LYMPH x10^3 (test code = 731-0) 1.83 10*3/uL 1.09-3.23 MONO x10^3 (test code = 742-7) 0.45 10*3/uL 0.36-1.02 EOS x10^3 (test code = 711-2) 0.04 10*3/uL 0.06-0.53 L BASO x10^3 (test code = 704-7) 0.04 10*3/uL 0.01-0.09 Lab Interpretation (test code = 87631-0) [facility]normal [facility] [id number] 22:27:19 * Test Item Value Reference Range Interpretation Comme nts TSH (test code = 8311967069) 1.74 See_Comment [Automated messa ge] The system which generated this result transmitted reference range: 0.45 - 4.70 mIU/L. The reference range was not used to interpret this result as normal/abnormal. Lab Interpretation (test code = 06743-1) Normal [facility] [id number] 22:08:38* Test Item Value Reference Range Interpretation Comme nts TROPONIN I (test code = 7910636879) 0.004 ng/mL <=0.034 DESIREE (test code = [...] of biotin. Lab Interpretation (test code = 52981-6) Normal [facility]20[facility] 22:05:21* Test Item Value Reference Range Interpretation Comme nts LIPASE (test code = 4819935607) 213 U/L 0-220 Lab Interpretation (test cod e = 16133-0) Normal [facility]23[facility] 22:05:16* Test Item Value Reference Range Interpretation Comme nts MAGNESIUM (test code = 5422843868) 1.7 mg/dL 1.7-2.4 Lab Interpretation (test cod e = 01886-2) Normal [facility]. METABOLIC PANEL (37384)2022-12-08 22:05:06* Test Item Value Reference Range Interpretation Comme nts NA (test code = 4235036302) 140 mmol/L 135-145 K (test code = 0665545850) 3.9 mmol/L 3.5-5.0 CL (test code = 0557669012) 105 mmol/L 98-108 CO2 TOTAL (test code = 7405940638) 26 mmol/L 23-31 AGAP (test code = 5795511660) 9 2-16 BUN (test code = 5778401653) 14 mg/dL 7-23 GLUCOSE (test code = 9803174396) 96 mg/dL 70-110 CREATININE (test code = 3003267280) 0.90 mg/dL 0.60-1.25 TOTAL BILI (test code = 9731258669) 0.8 mg/dL 0.1-1.1 CALCIUM (test code = 3184285692) 9.8 mg/dL 8.6-10.6 T PROTEIN (test code = 3890543708) 7.9 g/dL 6.3-8.2 ALBUMIN (test code = 4577667005) 4.9 g/dL 3.5-5.0 ALK PHOS (test code = 9274402094) 61 U/L 34-122 ALTv (test code = 1742-6) 39 U/L 5-50 AST(SGOT) (test code = 5260145060) 30 U/L 13-40 eGFR (test code = 3186497824) 99.8 mL/min/1.73m2 DESIREE (test code = DESIREE) [...] or urine or abnormalities in imaging tests). [facility] CampusD-[id number] 21:41:43* Test Item Value Reference Range Interpretation Comments D-DIMER (test code = 1428841577) See_Comment [Automated message] The system which generated [...] a diagnosis. Lab Interpretation (test code = 01404-3) Normal [facility] WITH [id number] 21:26:36* Test Item Value Reference Range Interpretation Comme nts WBC (test code = 6690-2) 6.69 See_Comment [Automated [employer] ge] The system which generated this result transmitted reference range: 4.20 - 10.70 10*3/?L. The reference range was not used to interpret this result as normal/abnormal. RBC (test code = 789-8) 5.24 See_Comment [Automated [employer]ette[employer] ge] The system which generated this result [...] g/dL 31.2-35.0 H RDW-SD (test code = 92196-3) 38.9 fL 38.5-51.6 RDW-CV (test code = 788-0) 12.1 % 12.1-15.4 PLT (test code = 777-3) 325 See_Comment [Automated [employer]ette[employer] ge] The system which generated this result transmitted reference range: 150 - 328 10*3/?L. The reference range was not used to interpret this result as normal/abnormal. MPV (test code = 36713-0) 9.4 fL 9.8-13.0 L NRBC/100 WBC (test code = 2797577999) 0.0 See_Comment [Automated [employer] ssage] The system which generated this result transmitted reference range: 0.0 - 10.0 /100 WBCs. The reference range was not used to interpret this result as normal/abnormal. NRBC x10^3 (test code = 5895384728) See_Comment [Automated [employer]ette[employer] ge] The system which generated this result transmitted reference range: 10*3/?L. The reference range was not used to interpret this result as normal/abnormal. GRAN MAT (NEUT) % (test code = 770-8) 57.8 % IMM GRAN % (test code = 5310015975) 0.30 % LYMPH % (test code = 736-9) 33.8 % MONO % (test code = 5905-5) 6.9 % EOS % (test code = 713-8) 0.6 % BASO % (test code = 706-2) 0.6 % GRAN MAT x10^3(ANC) (test code = 4381036085) 3.87 10*3/uL 1.99-6.95 IMM GRAN x10^3 (test code = 4838932466) 0.00-0.06 LYMPH x10^3 (test code = 731-0) 2.26 10*3/uL 1.09-3.23 MONO x10^3 (test code = 742-7) 0.46 10*3/uL 0.36-1.02 EOS x10^3 (test code = 711-2) 0.04 10*3/uL 0.06-0.53 L BASO x10^3 (test code = 704-7) 0.04 10*3/uL 0.01-0.09 Lab Interpretation (test code = 75318-5) Abnormal [facility] METABOLIC PANEL (NA, K, CL, CO2, GLUCOSE, BUN, CREATININE, CA)2022-11-13 23:40:36* Test Item Value Reference Range Interpretation Comme nts NA (test code = 6200377363) 140 mmol/L 135-145 K (test code = 4614482751) 4.1 mmol/L 3.5-5.0 CL (test code = 9792170190) 103 mmol/L 98-108 CO2 TOTAL (test code = 8027336844) 26 mmol/L 23-31 AGAP (test code = 1046818266) 11 2-16 BUN (test code = 0083126569) 14 mg/dL 7-23 GLUCOSE (test code = 9996532090) 106 mg/dL 70-110 CREATININE (test code = 7197942477) 0.89 mg/dL 0.60-1.25 CALCIUM (test code = 1975350662) 9.7 mg/dL 8.6-10.6 eGFR (test code = 7813933441) 101.1 mL/min/1.73m2 DESIREE (test code = DESIREE) [...] or urine or abnormalities in imaging tests). [facility] WITH [id number] 23:33:18* Test Item Value Reference Range Interpretation Comme nts WBC (test code = 6690-2) 9.32 See_Comment [PerBlue] The system which generated this result transmitted reference range: 4.20 - 10.70 10*3/?L. The reference range was not used to interpret this result as normal/abnormal. RBC (test code = 789-8) 5.42 See_Comment [PerBlue] The system which generated this result transmitted [...] 35.0 g/dL 31.2-35.0 RDW-SD (test code = 24793-1) 37.6 fL 38.5-51.6 L RDW-CV (test code = 788-0) 12.2 % 12.1-15.4 PLT (test code = 777-3) 314 See_Comment [Automated messa ge] The system which generated this result transmitted reference range: 150 - 328 10*3/?L. The reference range was not used to interpret this result as normal/abnormal. MPV (test code = 83058-9) 9.6 fL 9.8-13.0 L NRBC/100 WBC (test code = 7647692888) 0.0 See_Comment [Automated [employer] ssage] The system which generated this result transmitted reference range: 0.0 - 10.0 /100 WBCs. The reference range was not used to interpret this result as normal/abnormal. NRBC x10^3 (test code = 3062676005) See_Comment [Automated [employer]ette[employer] ge] The system which generated this result transmitted reference range: 10*3/?L. The reference range was not used to interpret this result as normal/abnormal. GRAN MAT (NEUT) % (test code = 770-8) 74.5 % IMM GRAN % (test code = 1428737375) 0.10 % LYMPH % (test code = 736-9) 18.1 % MONO % (test code = 5905-5) 6.5 % EOS % (test code = 713-8) 0.3 % BASO % (test code = 706-2) 0.5 % GRAN MAT x10^3(ANC) (test code = 0804386300) 6.93 10*3/uL 1.99-6.95 IMM GRAN x10^3 (test code = 6120030718) 0.00-0.06 LYMPH x10^3 (test code = 731-0) 1.69 10*3/uL 1.09-3.23 MONO x10^3 (test code = 742-7) 0.61 10*3/uL 0.36-1.02 EOS x10^3 (test code = 711-2) 0.03 10*3/uL 0.06-0.53 L BASO x10^3 (test code = 704-7) 0.05 10*3/uL 0.01-0.09 Lab Interpretation (test code = 19211-8) Abnormal [facility] URINALYSIS W SPECIFIC [id number] 16:30:00* Test Item Value Reference Range Interpretation [...] 3267) CLEAR Lab Interpretation (test code = 17290-4) Abnormal [facility] URINALYSIS W SPECIFIC [id number] 16:30:00* Test Item Value Reference Range Interpretation [...] 3267) CLEAR Lab Interpretation (test code = 21260-6) [facility]normal [facility] SPECIFIC [id number] 16:30:00* Test Item Value Reference Range Interpretation [...] 3267) CLEAR Lab Interpretation (test code = 45478-3) Abnormal [facility]CT ABDOMEN PELVIS W [id number] 18:54:58CT Abdomen and Pelvis with intravenous contrast. [...] is noted, otherwise no acuteintra-abdominal or pelvic abnormalities.[facility]2021-06-23 18:02:33* Test Item Value Reference Range Interpretation Comme nts APPEARANCE (test code = 3448064268) Clear Clear COLOR (test code = 1126072565) Yellow Yellow PH (test code = 7482286131) 4.8-8.0 SP GRAVITY (test code = 5202608406) 1.003-1.030 GLU U QUAL (test code = 9186302860) Normal Normal BLOOD (test code = 7665476734) Negative Negative KETONES (test code = 8158567209) Negative Negative PROTEIN (test code = 2887-8) Negative Negative UROBILIN (test code = 0673628346) Normal Normal BILIRUBIN (test code = 1770079654) Negative Negative NITRITE (test code = 5378018240) Negative Negative LEUK MITALI (test code = 5220794284) Negative Negative RBC/HPF (test code = 9846813747) See_Comment [Automated [employer]] The system which generated this result transmitted reference range: 0 - 3 HPF. The reference range was not used to interpret this result as normal/abnormal. WBC/HPF (test code = 1008791239) See_Comment [Automated [employer]] The system which generated this result transmitted reference range: 0 - 5 HPF. The reference range was not used to interpret this result as normal/abnormal. BACTERIA (test code = 5900982982) Negative Negative MUCOUS (test code = 2430010187) Slight Negative LPF A Lab Interpretation (test code = 96538-2) Abnormal [facility]. METABOLIC PANEL (45882)2020-12-28 17:57:13* Test Item Value Reference Range Interpretation Comme nts NA (test code = 9241144290) 142 mmol/L 135-145 K (test code = 7085654969) 4.5 mmol/L 3.5-5.0 CL (test code = 5989788157) 104 mmol/L 98-108 CO2 TOTAL (test code = 9061007523) 29 mmol/L 23-31 AGAP (test code = 9945484273) 2-16 BUN (test code = 5269831516) 13 mg/dL 7-23 GLUCOSE (test code = 1015167186) 101 mg/dL 70-110 CREATININE (test code = 5613401306) 0.92 mg/dL 0.60-1.25 TOTAL BILI (test code = 2379494768) 0.5 mg/dL 0.1-1.1 CALCIUM (test code = 8022938532) 9.9 mg/dL 8.6-10.6 T PROTEIN (test code = 4820362090) 8.0 g/dL 6.3-8.2 ALBUMIN (test code = 3170058541) 4.8 g/dL 3.5-5.0 ALK PHOS (test code = 3399807659) 61 U/L 34-122 ALTv (test code = 1742-6) 47 U/L 5-50 AST(SGOT) (test code = 7317403970) 37 U/L 13-40 eGFR (test code = 0504329905) mL/min/1.73m2 DESIREE (test code = DESIREE) Association [...] or urine or abnormalities in imaging tests). [facility]LIPASE2021-06-23 17:56:33* Test Item Value Reference Range Interpretation Comme nts LIPASE (test code = 1584006691) 328 U/L 0-220 H Lab Interpretation (test cod e = 11345-4) Abnormal [facility] CampusCBC WITH [id number] 17:51:55* Test Item Value Reference Range Interpretation Comme nts WBC (test code = 6690-2) See_Comment [Automated [employer]] The system which generated this result transmitted reference range: 4.20 - 10.70 10*3/?L. The reference range was not used to interpret this result as normal/abnormal. RBC (test code = 789-8) See_Comment [Automated [employer] ge] The system which generated this result [...] 34.3 g/dL 31.2-35.0 RDW-SD (test code = 46776-0) 38.7 fL 38.5-51.6 RDW-CV (test code = 788-0) 12.2 % 12.1-15.4 PLT (test code = 777-3) See_Comment [Automated [employer]] The system which generated this result transmitted reference range: 150 - 328 10*3/?L. The reference range was not used to interpret this result as normal/abnormal. MPV (test code = 43845-4) 9.3 fL 9.8-13.0 L NRBC/100 WBC (test code = 4848032276) See_Comment [Automated me ssage] The system which generated this result transmitted reference range: 0.0 - 10.0 /100 WBCs. The reference range was not used to interpret this result as normal/abnormal. NRBC x10^3 (test code = 6210710411) <0.01 See_Comment [Automated messa ge] The system which generated this result transmitted reference range: 10*3/?L. The reference range was not used to interpret this result as normal/abnormal. GRAN MAT (NEUT) % (test code = 770-8) 53.5 % IMM GRAN % (test code = 0073252072) 0.20 % LYMPH % (test code = 736-9) 34.2 % MONO % (test code = 5905-5) 9.6 % EOS % (test code = 713-8) 2.1 % BASO % (test code = 706-2) 0.4 % GRAN MAT x10^3(ANC) (test code = 5454297322) 2.56 10*3/uL 1.99-6.95 IMM GRAN x10^3 (test code = 5282210261) <0.03 0.00-0.06 LYMPH x10^3 (test code = 731-0) 1.64 10*3/uL 1.09-3.23 MONO x10^3 (test code = 742-7) 0.46 10*3/uL 0.36-1.02 EOS x10^3 (test code = 711-2) 0.10 10*3/uL 0.06-0.53 BASO x10^3 (test code = 704-7) <0.03 0.01-0.09 Lab Interpretation (test code = 19523-5) Abnormal [facility] CampusaPTT2021-06-05 15:42:57* Test Item Value Reference Range Interpretation Comme nts APTT Patient (test code = 3173-2) See_Comment [Automated message] The system which generated this result transmitted reference range: 23 - 38 Seconds. The reference range was not used to interpret this result as normal/abnormal. DESIREE (test code = DESIREE) The [facility] patient population mean normal value for aPTT is 30 seconds. Lab Interpretation (test code = 12593-6) Normal [facility] CampusProthrombin Time (PT) / [id number] 15:40:16 * Test Item Value Reference Range Interpretation Comme nts PROTIME PATIENT (test code = 5964-2) See_Comment [Automated [employer]] The system which generated this result transmitted reference range: 12.0 - 14.7 Seconds. The reference range was not used to interpret this result as normal/abnormal. INR (test code = 6301-6) Normal INR <1.1; Warfarin Therapeutic range 2.0 to 3.0 or 2.5 to 3.5, depending upon the indications. Lab Interpretation (test code = 89379-4) Normal [facility] CampusUrinalysis2021-06-05 14:32:20* Test Item Value Reference Range Interpretation Comme nts APPEARANCE (test code = 6952550230) Hazy Clear A COLOR (test code = 4734709949) Shellie Yellow A PH (test code = 8015483898) 4.8-8.0 SP GRAVITY (test code = 8478698176) 1.003-1.030 H GLU U QUAL (test code = 2501999243) Normal Normal BLOOD (test code = 6876285436) Negative Negative KETONES (test code = 8392740620) Negative Negative PROTEIN (test code = 2887-8) Negative Negative UROBILIN (test code = 3786667530) Normal Normal BILIRUBIN (test code = 4717322541) Negative Negative NITRITE (test code = 5277290856) Negative Negative LEUK MITALI (test code = 4794345657) Negative Negative RBC/HPF (test code = 1162089802) See_Comment [Automated [employer]] The system which generated this result transmitted reference range: 0 - 3 HPF. The reference range was not used to interpret this result as normal/abnormal. WBC/HPF (test code = 3187483476) See_Comment [Automated [employer]ette[employer] ge] The system which generated this result transmitted reference range: 0 - 5 HPF. The reference range was not used to interpret this result as normal/abnormal. BACTERIA (test code = 1771236957) Few Negative A MUCOUS (test code = 7074485126) Marked Negative LPF A SQ EPITH (test code = 1210139647) <1 HPF Lab Interpretation (test code = 62156-8) Abnormal [facility] CampusURINE DRUG (IMMUNOASSAY) - COMPREHENSIVE DRUG [id number] 14:30:54* Test Item Value Reference Range Interpretation Comme nts AMPHET (test code = 7078243717) Negative Negative REBECA U (test code = 3260284389) Negative Negative BENZO U (test code = 4669853862) Negative Negative Cocaine Metabolite (test code = 9036826468) Negative Negative METHADONE (test code = 5356237162) Negative Negative OPIATES (test code = 0817988999) Negative Negative PCP (test code = 4941106551) Negative Negative THC (test code = 9515583665) Presumptive Positive Negative A DESIREE (test code [...] legal testing). Lab Interpretation (test code = 23309-6) Abnormal [facility] CampusSALICYLATE2021-06-05 13:41:52* Test Item Value Reference Range Interpretation Comme nts SALICYLATE (test code = 3932170011) <10 mg/L DESIREE (test code = DESIREE) Therapeutic Range: ? Analgesic and Antipyretic Use ? 20-100 mg/L ? ? Anti-Inflammatory Use ? 100-250 mg/L Toxic Range: ? Greater than 300 mg/L [facility] CampusACETAMINOPHEN2021-06-05 13:41:52* Test Item Value Reference Range Interpretation Comme nts ACETAMINOP (test code = 5377711833) <10.0 10.0-30.0 L DESIREE (test code = DESIREE) Toxic: Greater jurgen n 200 ug/mL @ 4 hour post ingestion or greater than 50 ug/mL @ 12 hour post ingestion Lab Interpretation (test code = 35778-3) Abnormal [facility] CampusCOVID-19 (ID NOW RAPID TESTING)2020-12-10 13:13:08* Test Item Value Reference Range Interpretation Comme nts SARS-CoV-2 Rapid ID NOW (test code = 78140-8) Not Detected Not Detected DESIREE (test code = DESIREE) ID NOW COVID-19 As say is an isothermal nucleic acid amplification test intended for the qualitative detection of nucleic acid from SARS-CoV-2 viral RNA in nasopharyngeal (BISQUE KILN DRAWER) specimens. It is used under Emergency Use [...] clinically indicated. Lab Interpretation (test code = 89210-1) Normal [facility] CampusETHANOL2021-06-05 13:08:25* Test Item Value Reference Range Interpretation Comme nts ALCOHOL (test code = 3004868460) <10 mg/dL DESIREE (test code = DESIREE) <10 [id number] Toxic>100 Depression of ROLLING MILL OPERATOR>400 Fatalities Reported [facility] CampusLactic Acid Whole [id number] 12:41:49* Test Item Value Reference Range Interpretation Comme nts LACTIC ACID (test code = 7402179733) 1.89 mmol/L 0.50-2.20 Lab Interpretation (test cod e = 45655-7) Normal [facility] CampusMAGNESIUM2021-06-05 12:38:27* Test Item Value Reference Range Interpretation Comme nts MAGNESIUM (test code = 9503007126) 1.7 mg/dL 1.7-2.4 Lab Interpretation (test cod e = 47697-1) Normal [facility] CampusHepatic Function Panel (ALB, T.PRO, BILI T, BU/BC, ALT, AST, ALK PHOS)2020-12-10 12:38:07* Test Item Value Reference Range Interpretation Comme nts TOTAL BILI (test code = 6279031517) 0.8 mg/dL 0.1-1.1 BILI UNCON (test code = 9394283402) 0.6 mg/dL 0.1-1.1 BILI CONJ (test code = 4472340176) 0.0 mg/dL 0.0-0.3 T PROTEIN (test code = 1596996283) 8.4 g/dL 6.3-8.2 H ALBUMIN (test code = 2140730475) 5.2 g/dL 3.5-5.0 H ALK PHOS (test code = 4308241673) 69 U/L 34-122 ALTv (test code = 1742-6) 39 U/L 5-50 AST(SGOT) (test code = 7586908657) 36 U/L 13-40 Lab Interpretation (test cod e = 17782-0) Abnormal [facility] CampusBasic Metabolic Panel (NA, K, CL, CO2, GLUCOSE, BUN, CREATININE, CA)2020-12-10 12:37:47* Test Item Value Reference Range Interpretation Comme nts NA (test code = 0625254614) 141 mmol/L 135-145 K (test code = 0863604892) 3.7 mmol/L 3.5-5.0 CL (test code = 1837548875) 105 mmol/L 98-108 CO2 TOTAL (test code = 3019603254) 27 mmol/L 23-31 AGAP (test code = 2591620566) 2-16 BUN (test code = 6237081028) 19 mg/dL 7-23 GLUCOSE (test code = 1808401995) 128 mg/dL 70-110 H CREATININE (test code = 0131583353) 1.16 mg/dL 0.60-1.25 CALCIUM (test code = 8316168678) 9.6 mg/dL 8.6-10.6 eGFR (test code = 4072741514) mL/min/1.73m2 DESIREE (test code = DESIREE) Association [...] imaging tests). Lab Interpretation (test code = 80763-0) Abnormal [facility] CampusLipase [id number] 12:37:47* Test Item Value Reference Range Interpretation Comme nts LIPASE (test code = 5955071995) 241 U/L 0-220 H Lab Interpretation (test cod e = 35293-0) Abnormal [facility] CampusCBC with Yarpzkbgnocr3128-09-54 12:25:07* Test Item Value Reference Range Interpretation [...] 34.0 g/dL 31.2-35.0 RDW-SD (test code = 09773-1) 39.2 fL 38.5-51.6 RDW-CV (test code = 788-0) 12.3 % 12.1-15.4 PLT (test code = 777-3) See_Comment [Automated message] The system which generated this result transmitted reference range: 150 - 328 10*3/?L. The reference range was not used to interpret this result as normal/abnormal. MPV (test code = 09799-5) 9.3 fL 9.8-13.0 L NRBC/100 WBC (test code = 0024658668) See_Comment [Automated message] The system which generated this result transmitted reference range: 0.0 - 10.0 /100 WBCs. The reference range was not used to interpret this result as normal/abnormal. NRBC x10^3 (test code = 9406429802) <0.01 See_Comment [Automated message] The system which generated this result transmitted reference range: 10*3/?L. The reference range was not used to interpret this result as normal/abnormal. GRAN MAT (NEUT) % (test code = 770-8) 87.5 % IMM GRAN % (test code = 4502479465) 0.30 % LYMPH % (test code = 736-9) 5.2 % MONO % (test code = 5905-5) 6.4 % EOS % (test code = 713-8) 0.3 % BASO % (test code = 706-2) 0.3 % GRAN MAT x10^3(ANC) (test code = 6714098469) 12.14 10*3/uL 1.99-6.95 H IMM GRAN x10^3 (test code = 1680384789) 0.04 10*3/uL 0.00-0.06 LYMPH x10^3 (test code = 731-0) 0.72 10*3/uL 1.09-3.23 L MONO x10^3 (test code = 742-7) 0.89 10*3/uL 0.36-1.02 EOS x10^3 (test code = 711-2) 0.04 10*3/uL 0.06-0.53 L BASO x10^3 (test code = 704-7) 0.04 10*3/uL 0.01-0.09 Lab Interpretation (test code = 39734-2) Abnormal [facility] Notes Date/Time Note Provider Source 2024-03-03 09:48:11 Images from the original note were not included. Notes: MUST BE SEEN FOR FURTHER REFILLS Last Refilled: pantoprazole 40 mg EC tabletSig: Take 1 tablet by mouth in the morning.Disp: 30 tablet Refills: 3Start: 03/02/2024lass: eRXNon-formularyFor: Epigastric painLast ordered: 4 months ago (10/09/2023) by Kayla Grimes MD Gastroenterology: Antiulcer - Proton Pump Inhibitors Kvlukg8503/02/2024 02:24 PM Protocol Details Valid encounter within last 12 months To be filled at: [facility] [address] [place] [address] Recent Visits Date Type Provider Dept 04/30/23 Office Visit Kayla Grimes MD [facility] 04/23/23 Office Visit Kayla Grimes MD [facility] 12/12/22 Office Visit Kayla Grimes MD [facility] 12/05/22 Office Visit Kayla Grimes MD [facility] 11/06/22 Office Visit Alena Min FNP [facility] Showing recent visits within past 540 days with a meds authorizing provider and meeting all other requirements Future Appointments Date Type Provider Dept 03/27/24 Appointment Shaunna Donato PA [facility] Showing future appointments within next 150 days with a meds authorizing provider and meeting all other requirements Joanne Gale MA [facility] 2024-03-02 14:23:22 Pt request rx refill. Please Advise. [facility] [address] [place] [id number] [facility] 2023-12-25 09:43:[address] in provider box to review Jemma Aquino MA [facility] 2023-12-24 18:12:21 Radiology report from [facility] Printed and placed in providers box. Radha Nelson [facility] 2023-12-05 13:43:20 Patient has been notified of test results/ recommendations per Kayla Grimes Gave verbal understanding Anais Perez MA [facility] 2023-12-05 13:39:34 RX sent [facility] 2023-12-05 13:27:02 Please review and advise. Patient has an appointment for 12/12/23. Edilia Marrero RN [facility] 2023-12-05 13:22:05 Copied from [facility] #[id number]. Topic: Clinical - Order >> December 05, 2023 1:20 PM Patient Special Needs Child Caregiver wrote: Ramiro Link is a 28 year old male is calling in to request a refill for valACYclovir 500 mg tablet (VALTREX). He has an appt schedule for 12/11 but would like to begin treatment JOJO Please advise [phone] (home) [facility] [address] [place] [id number] Ernst Reeder [facility] 2023-10-30 13:05:05 OCA worked 4 post visit no additional orders needed at this time Nicole Wooten 10/30/2023 1:05 PM Nicole Wooten [facility] 2023-10-09 11:07:02 Images from the original note were not included. Notes: 03/12/23 Last Refilled: [facility] [address] [place] [address] Recent Visits Date Type Provider Dept 04/30/23 Office Visit Kayla Grimes MD [facility] 04/23/23 Office Visit Kayla Grimes MD [facility] 12/12/22 Office Visit Kayla Grimes MD [facility] 12/05/22 Office Visit Kayla rGimes MD [facility] 11/06/22 Office Visit Alena Min FNP [facility] 01/31/23 Office Visit Alena Min FNP [facility] Showing recent visits within past 540 days with a meds authorizing provider and meeting all other requirements Future Appointments Date Type Provider Dept 10/30/23 Appointment Kayla Grimes MD [facility] Showing future appointments within next 150 days with a meds authorizing provider and meeting all other requirements pantoprazole 40 mg EC tablet Sig: Take 1 tablet by mouth in the morning. Disp: 30 tablet Refills: 3 Start: 10/09/2023 Class: eRX For: Epigastric pain Last ordered: 7 months ago (03/12/2023) by Kayla Grimes MD Gastroenterology: Antiulcer - Proton Pump Inhibitors Gyttlp1710/09/2023 11:03 AM Protocol Details Valid encounter within last 12 months To be filled at: None [Patient requested: Al] Anais Perez MA [facility] 2023-09-16 09:23:59 OCA worked 3.5.24 PT post visit no additional orders needed at this time. Nicole Wooten 09/16/2023 9:24 [facility] 10:24:24 OCA worked 2.27.24 DNKA Nicole Wooten 09/05/2023 10:24 AM PROOF REPRODUCER Nicole Wooten [facility] 2023-08-28 08:35:57 OCA worked 12.19.24 PT post visit Nicole Kvng Gascaes 08/28/2023 8:36 AM PROOF REPRODUCER [facility]26 08:25:39 OCA worked 2.15.24 post visit no additional orders needed at this time. Nicole Wooten 08/26/2023 8:26 AM PROOF REPRODUCER Nicole Wooten [facility] 2023-08-23 08:12:32 OCKvng worked 10.3.23 post visit Nicole Wooten 08/23/2023 8:12 AM PROOF REPRODUCER Nicole Wooten [facility] 2023-08-12 18:22:10 Pt discharged with diagnosis of foreign body sensation in throat and gastroesophageal reflux disease. Printed and verbal instructions reviewed with and given to pt. Prescriptions given x 2. Pt verbalized understanding of teaching, medications, and recommended follow-up. Denies questions or concerns at this time. Pt ambulatory at discharge. Appears in no apparent distress. No ataxia noted. PROOF REPRODUCER Lacy Moctezuma RN [facility] 2023-08-12 17:12:34 Summary: Patient refused IV Patient refused IV and took his medication orally. PROOF REPRODUCER Joann Keys RN [facility] 2023-08-12 15:53:16 Pt presents to ED with c/o feeling like 3 pills he took earlier are stuck in his throat. Pt is able to tolerate drinking water, pt has forced himself to vomit several times and feels like there is acid in his throat. Pt is 100% on RA and in NAD. Pt is talking in complete sentences and able to swallow with no difficulty. Pt has not been compliant with his stomach medication PROOF REPRODUCER Millicent Enamorado RN [facility] 2023-08-09 11:41:48 OCA worked 1.26.24 and 1.30.24 Nicole Wooten 08/09/2023 11:43 AM [facility]:05:07 OCA worked 1.12.24 post visit. Nicole Wooten 07/26/2023 8:06 AM [facility] Nicole Calderon [facility] 2023-07-11 15:01:10 Faxed 61 ortho post-appointment file to [facility]. Requested new referral for PT Nicole Wooten 07/11/2023 3:01 PM PROOF REPRODUCER Nicole Calderon Wooten [facility] 2023-03-12 16:06:15 Formatting of this n ote might be different from the original. Rx sent, please keep appt as scheduled Kayla Grimes MD [facility]
[2024-03-03] MEDS ORDERED: TETRACAINE HCL 0.5% 4ML OPTH ONE (16:42)
[2024-03-03] MEDS ORDERED: FLUORESCEIN SODIUM 1 MG/WRAP ONE (16:42)
--- NOTE | 2024-03-03 17:05 | EDPHYS ---
Physician Documentation [facility] Name: Ramiro Jay Age: 28 yrs Sex: Male : 1995 Arrival Date: 03/03/2024 Time: 15:48 Bed 11 Private MD: ED Physician uQintin Baca HPI: 03/03 15:57 This 28 yrs old Male presents to ER via Unassigned with complaints of Eye Problem. kb 15:57 Pt is a 28 year old male who presents for intermittent soreness to left eye for 3 days. kb States it started while sitting watching tv. States he woke up with itching to left eye today and this afternoon started feeling a FB sensation. Denies any visual deficits, drainage, redness. Historical: - Allergies: 16:01 No Known Allergies; kc6 - PMHx: 16:01 ADD/ADHD; HERPES; Pancreatitis; Gastric reflux; Anxiety; Depressive disorder; kc6 - PSHx: 16:01 None; kc6 - Immunization history:: Client reports having NOT received the Covid vaccine. Flu vaccine is not up to date. - Infectious Disease History:: Denies. - Social history:: Smoking status: Patient denies any tobacco usage or history of. ROS: 15:57 Constitutional: As per HPI kb Exam: 15:57 Constitutional: This is a well developed, well nourished patient who is awake, alert, kb and in no acute distress. Head/Face: Normocephalic, atraumatic. ENT: Moist Mucous membranes Cardiovascular: Regular rate Respiratory: Respirations even and unlabored. No increased work of breathing. Talking in full sentences Skin: Warm, dry with normal turgor. Normal color. MS/ Extremity: Pulses equal, no cyanosis. Neurovascular intact. Full, normal range of motion. Neuro: Awake and alert, GCS 15, oriented to person, place, time, and situation. Moves all extremities. Normal gait. 15:57 Eyes: Periorbital structures: appear normal, Pupils: equal, round, and reactive to light and accomodation, Extraocular movements: intact throughout, Conjunctiva: normal, 17:04 Eyes: Corneas: are normal, no evidence of abrasion, no foreign body, a fluorescein kb strip employed to appreciate the findings, Vital Signs: 15:54 BP 134 / 87; Pulse 63; Resp 16 S; Temp 98.5(O); Pulse Ox 100% on R/A; Weight 113.4 kg kc6 (R); Height 6 ft. 2 in. (R); Pain 0/10; 17:13 BP 128 / 79; Pulse 64; Resp 16; Temp 98.4; Pulse Ox 99% ; me1 15:54 Body Mass Index 32.10 (113.40 kg, 187.96 cm) kc6 15:54 Pain Scale: Adult kc6 MDM: 15:51 Patient medically screened. kb 16:00 Differential diagnosis: Corneal abrasion of Corneal ulcer of Foreign body in Data kb reviewed: vital signs, nurses notes. 17:04 Counseling: I had a detailed discussion with the patient and/or guardian regarding the kb historical points, exam findings, and any diagnostic results supporting the discharge/admit diagnosis, the need for outpatient follow up, an opthalmologist, to return to the emergency department if symptoms worsen or persist or if there are any questions or concerns that arise at home. 03/03 16:01 Order name: Eye Tray; Complete Time: 17:08 kb 03/03 16:01 Order name: Fluoresene Opth strip; Complete Time: 16:45 kb Administered Medications: 17:09 Drug: Tetracaine Ophthalmic Drops 0.5 % 1 drops Ophthalmic once {Note: Administered by me1 LEONEL Amin.} Route: Ophthalmic; Site: left eye; 17:09 Follow up: Response: No adverse reaction me1 Disposition: 17:54 I was immediately available on-site in the Emergency Department for consultation in the ms3 care of the patient. Disposition Summary: 03/03/24 17:04 Discharge Ordered Notes: Location: Home Condition: Stable kb Diagnosis - Ocular pain, left eye kb Followup: kb - With: Emergency Department - When: As needed - Reason: Worsening of condition Followup: kb - With: Private Physician - When: 2 - 3 days - Reason: Recheck today's complaints, Continuance of care, Re-evaluation by your physician Discharge Instructions: - Discharge Summary Sheet kb - How to Use Eye Drops and Eye Ointments kb Forms: - Medication Reconciliation Form kb - Antibiotic Education kb - Prescription Opioid Use kb - Patient Portal Instructions kb - Leadership Thank You Letter kb Prescriptions: - Vigamox 0.5 % Ophthalmic Drops - instill 1 drop OPHTHALMIC route every 8 hours for 7 days; 5 milliliter; kb Refills: 0, Product Selection Permitted Signatures: Darby Satnana FNP-C FNP-Ckb Sims, Marcus, DO DO ms3 Cassia Carey, RN RN kc6 Mary Colbert RN RN me1
--- NOTE | 2024-03-03 17:05 | ER ---
Nurse's Notes [facility] Name: Ramiro Jay Age: 28 yrs Sex: Male : 1995 Arrival Date: 03/03/2024 Time: 15:48 Bed 11 Private MD: Diagnosis: Ocular pain, left eye Presentation: 03/03 15:54 Chief complaint: Patient states: "I feel like I blew a blood vessel in my left eye 3 kc6 days ago and now it feels weird, like something is stuck in there". Coronavirus screen: At this time, the client does not indicate any symptoms associated with coronavirus-19. Ebola Screen: No symptoms or risks identified at this time. Initial Sepsis Screen: Does the patient meet any 2 criteria? No. Patient's initial sepsis screen is negative. Does the patient have a suspected source of infection? No. Patient's initial sepsis screen is negative. Risk Assessment: Do you want to hurt yourself or someone else? Patient reports no desire to harm self or others. Onset of symptoms was March 03, 2024. 15:54 Method Of Arrival: Ambulatory [facility] 15:54 Acuity: MICHELA 4 kc6 Historical: - Allergies: 16:01 No Known Allergies; kc6 - PMHx: 16:01 ADD/ADHD; HERPES; Pancreatitis; Gastric reflux; Anxiety; Depressive disorder; kc6 - PSHx: 16:01 None; kc6 - Immunization history:: Client reports having NOT received the Covid vaccine. Flu vaccine is not up to date. - Infectious Disease History:: Denies. - Social history:: Smoking status: Patient denies any tobacco usage or history of. Screenin:13 [facility] ED Fall Risk Assessment (Adult) History of falling in the last 3 months, me1 including since admission No falls in past 3 months (0 pts) Confusion or Disorientation No (0 pts) Intoxicated or Sedated No (0 pts) Impaired Gait No (0 pts) Mobility Assist Device Used No (0 pt) Altered Elimination No (0 pt) Score/Fall Risk Level 0 - 2 = Low Risk Maintained a safe environment, Provided non-skid footwear, Hourly rounding (assess needs \\T\\ fall precautionary measures) done. Abuse screen: Denies threats or abuse. Nutritional screening: No deficits noted. Tuberculosis screening: No symptoms or risk factors identified. Assessment: 17:13 General: Appears uncomfortable, well groomed, well developed, well nourished, Behavior me1 is calm, cooperative, appropriate for age, Reports "I feel like I blew a blood vessel in my left eye 3 days ago and now it feels weird, like something is stuck in there". Pain: Denies pain. Neuro: Level of Consciousness is awake, alert, obeys commands, Oriented to person, place, time, situation, Appropriate for age. Cardiovascular: Patient's skin is warm and dry. Respiratory: Airway is patent Trachea midline Respiratory effort is even, unlabored, Respiratory pattern is regular, symmetrical. GI: No signs and/or symptoms were reported involving the gastrointestinal system. : No signs and/or symptoms were reported regarding the genitourinary system. EENT: "I feel like I blew a blood vessel in my left eye 3 days ago and now it feels weird, like something is stuck in there". Derm: Skin is intact, is healthy with good turgor, Skin is pink, warm \\T\\ dry. Musculoskeletal: No signs and/or symptoms reported regarding the musculoskeletal system. Vital Signs: 15:54 BP 134 / 87; Pulse 63; Resp 16 S; Temp 98.5(O); Pulse Ox 100% on R/A; Weight 113.4 kg kc6 (R); Height 6 ft. 2 in. (R); Pain 0/10; 17:13 BP 128 / 79; Pulse 64; Resp 16; Temp 98.4; Pulse Ox 99% ; me1 15:54 Body Mass Index 32.10 (113.40 kg, 187.96 cm) 6 15:54 Pain Scale: Adult [facility] ED Course: 15:49 Patient arrived in ED. ra3 15:51 Darby Santana FNP-C is [facility]. kb 15:51 Quintin Baca DO is Attending Physician. kb 16:01 Triage completed. kc6 16:01 Arm band placed on. kc6 16:43 Mary Colbert, AUDRA is Primary Nurse. me1 17:13 Patient has correct armband on for positive identification. Bed in low position. Call me1 light in reach. Side rails up X2. Provided Education on: POC. Verbalized understanding. . 17:13 No provider procedures requiring assistance completed. Patient did not have IV access me1 during this emergency room visit. Administered Medications: 17:09 Drug: Tetracaine Ophthalmic Drops 0.5 % 1 drops Ophthalmic once {Note: Administered by 1 LEONEL Amin.} Route: Ophthalmic; Site: left eye; 17:09 Follow up: Response: No adverse reaction me1 Medication: 17:13 VIS not applicable for this client. me1 Outcome: 17:04 Discharge ordered by MD. stone 17:16 Discharged to home ambulatory, nd1 17:16 Condition: stable 17:16 Discharge instructions given to patient, Instructed on discharge instructions, follow up and referral plans. medication usage, Demonstrated understanding of instructions, follow-up care, medications, Prescriptions given X 1, 17:16 Patient left the ED. me1 Signatures: Darby Santana, JORDEN CASTANEDA-Cassia Bird RN RN kc6 Mary Colbert RN RN me1 Osiris Whelan ra3 Corrections: (The following items were deleted from the chart) 17:09 15:54 Chief complaint: Patient states: "I feel like I blew a blood vessel in my left me1 eye 3 days ago and now it feels weird, like something is stuck in there" kc6
[2024-03-03 17:49] VITALS: BP 128/79; TEMP 98.4; O2SAT 99
== END 2024-03-03 17:16 | disposition home or self-care (01) ==
LOC: ER 15:48
DX: H57.12 Ocular pain, left eye (principal)
CPT/HCPCS: 99283

== ENCOUNTER 2024-03-11 22:54 | Emergency (ER) | payer OTHER ==
--- OUTSIDE RECORDS SUMMARY | 2024-03-11 23:07 | XMS REPORT | Continuity of Care Document ---
Author Name Unknown Address [address] [facility] [address] [place] [address] [facility] thconnect Address [address] [facility] [place] [address] Care Team Providers Care Razor Sharpener Name Role Phone Kayla Grimes MD Primary Care Physici an SHAUNNA DONATO Attending Clinician Unavailable ALENA MIN Attending Clinician Unavailable Shaunna Ashley Attending Clinician [phone] Kayla Grimes MD Attending Clinician KAYLA GRIMES Attending Clinician Adalgisa vailaKathy Chin Attending Clinician [phone] Kayla Grimes MD Attending Clinician KATHY LUX Attending Clinician Unavailab Pathak, Attending Attending Clinician UnavailEDDIE Fink Attending Clinician Unav Nicole Hernandez Attending Clinician Unavaila juan Barber MA, Alexandrea A Attending Clinician UnavailSebastian Jenkins PTA F Attending Clinician Unavaila LORENA Carrera Attending Clinician UnavailLORENA Starkey Attending Clinician UnavailEddie Barreto MD Attending Clinician + Doctor Unassigned, [place] Attending Clinician U Lorena Quiñonez MD Attending Clinician [phone] ZOHRA PRATER Attending Clinician Unavailable Zohra Stephen Attending Clinician + [phone] Val Bell PT Attending Clinician UnavailDHARMESH Ribeiro Attending Clinician Unavailable Bebo PAC, Dharmesh Davis Attending Clinician [phone] GORDON NORWOOD Attending Clinician Unavailable Gordon Norwood MD Attending Clinician + [phone] BABATUNDE HERNÁNDEZ Attending Clinician Unavailable Tylor Newman MD Attending Clinician +[phone] EDILIA NOLASCO Attending Clinician Unavailable Edilia Nolasco MD Attending Clinician [phone] KADEN ANDREW Attending Clinician Unavailable Alena Johnson Attending Clinician [phone] SULMA VIZCARRA Attending Clinician Shani Magallanes [facility] Sheila Lovell Attending Clinician + [phone] BREANNE BENAVIDES Attending Clinician Unavailable BREANNE BENAVIDES Attending Clinician Unavailable IVY THAKKAR Attending Clinician Unavaila Ivy Terrazas Attending Clinician [phone] AMARILIS BANUELOS Attending Clinician Unavailable Amarilis Banuelos NP Attending Clinician + [phone] Kaden Andrew MD Attending Clinician [phone] PRIYANKA RIVERA Attending Clinician Unavailable Jena Veloz Attending Clinician U BERNARDO Mcconnell Attending Clinician Unavaila GAURAV Davison Attending Clinician Unavailable Gaurav Mendenhall Attending Clinician + Lab, Ang - Db Attending Clinician Unavailable Thi Trent DO Attending Clinician + Gianni SHULTZ, Alvarez Medina Attending Clinician +[phone] Barrington Berman MD Attending Clinician + Raymundo Dexter MD Attending Clinician + [phone] Daljit Velasco DO Attending Clinician + DALJIT VELASCO Attending Clinician Unavailable ZOHRA PRATER Admitting Clinician Unavailable DHARMESH HIGGINS Admitting Clinician Unavailable IVY THAKKAR Admitting Clinician Unavaila AMARILIS Wasserman Admitting Clinician Unavailable GAURAV ESPARZA Admitting Clinician Unavailable Raymundo Dexter MD Admitting Clinician [phone] Payers Payer Name Policy Type Policy Number Effective Date Expirati on Date Source [place] [id number] 2023 00:00:00 [id number] 2022 00:00:00 2023 00:00:00 MEDICAID PENDING PENDING 2020 00:00:00 Problems Condition Name Condition Details Condition Category Status Onset Date Resolution Date Last Treatment Date Treating Clinician Comments Source Stomachach e Stomachach e Disease Active 03-08 00:00: 00 [facility] Dysuria Dysuria Disease Active 11-06 00:00: 00 [facility] Cervical radiculopa thy Cervical radiculopa thy Disease Active 11-06 00:00: 00 [facility] Encounter to establish care Encounter to establish care Disease Active 08-07 00:00: 00 [facility] Epigastric pain Epigastric pain Disease Active 08-07 00:00: 00 [facility] Nausea Nausea Disease Active 08-07 00:00: 00 [facility] Anxiety and depression Anxiety and depression Disease Active 08-07 00:00: 00 [facility] Vomiting Vomiting Disease Active 12-10 00:00: 00 [facility] No known active problems No known active problems Disease [facility] Allergies, Adverse Reactions, Alerts Allergy Name Allergy Type Status Severity Reaction(s) Onset Date Inactive Date Treating Clinician Comments Source NO KNOWN ALLERGIE S Drug Class Active [facility] Social History Social Habit Start Date Stop Date Quantity Comments Source Gender identity [facility] of tobacco use Cigarette Smoker [facility] Alcohol intake 2023-08-13 00:00:00 2023-08-13 00:00:00 Ex-drinker (finding) [facility] Alcoholic beverage intake 2023-08-13 00:00:00 2023-08-13 00:00:00 Ex-drinker (finding) [facility] History of Social function 2023-05-16 00:00:00 2023-05-16 00:00:00 [facility] Exposure to SARS-CoV-2 (event) 2022-11-25 00:00:00 2022-12-05 09:48:00 Not sure [facility] Tobacco use and exposure 2022-08-07 00:00:00 2022-08-07 00:00:00 Smokeless tobacco non-user [facility] Tobacco Comment 2022-08-07 00:00:00 2022-08-07 00:00:00 quit 3 months ago [facility] Cigarettes smoked current (pack per day) - Reported 2022-08-07 00:00:00 2022-08-07 00:00:00 [facility] Cigarette pack-years 2022-08-07 00:00:00 2022-08-07 00:00:00 [facility] Sex assigned at 1995 00:00:00 1995 00:00:00 [facility] Smoking Status Start Date Stop Date Source Ex-smoker 2022-08-07 00:00:00 2022-08-07 [facility] Current every day smoker 2017-06-22 00:00:00 [facility] Medications Ordered Medication Name Filled Medication Name Start Date Stop Date Current Medication? Ordering Clinician Indication Dosage Frequency Signature (SIG) Comments Components Source pantoprazol e 40 mg EC tablet 03-03 00:00: 00 Yes [id number] 40mg Take 1 tablet by mouth in the morning. MUST BE SEEN FOR FURTHER REFILLS [facility] permethrin 5 % cream 12-19 00:00: 00 Yes APPLY CREAM FROM HEAD TO FEET, LEAVE ON FOR 8-14 HOURS THEN WASH WITH SOAP AND WATER. REPEAT OF LIVING MITES PRESENT 14 DAYS AFTER INITIAL TREATMENT [facility] valACYclovi r 500 mg tablet 12-19 00:00: 00 12-25 04:59 :00 Yes [id number] 1000mg Take 2 tablets by mouth in the morning for 5 days. [facility] ibuprofen 800 mg tablet 12-16 00:00: 00 Yes TAKE 1 TABLET BY MOUTH EVERY 8 HOURS WITH FOOD AND DRINK PLENTY OF WATER NEEDED FOR PAIN [facility] valACYclovi r (VALTREX) 500 mg tablet 12-04 00:00: 00 Yes [id number] 500mg Take 1 tablet by mouth in the morning and 1 tablet in the evening. [facility] chlorhexidi ne 0.12 % mouthwash 12-04 00:00: 00 Yes RINSE MOUTTH WITH 1 CAP FULL OF LIQUID AFTER BRUSHING TWICE DAILY. SWISH FOR APPROXIMAT BRET 60 SECONDS AND SPIT. [facility] pantoprazol e 40 mg EC tablet 10-08 00:00: 00 03-02 00:00 :00 No [id number] 40mg Take 1 tablet by mouth in the morning. [facility] famotidine (PEPCID AC) tablet 20 mg 08-12 23:00: 00 08-12 22:59 :00 No 20mg 20 mg, Oral, ONCE, 1 dose, On Sat08/12/23 at 1700, ANNA [facility] ondansetron (ZOFRAN-ODT ) disintegrat ing tablet 4 mg 08-12 22:56: 00 08-12 22:59 :00 No 4mg 4 mg, Oral, ONCE, 1 dose, On Sat08/12/23 at 1700, ANNA [facility] maalox:diph enhydrAMINE :lidocaine 2 % viscous 1:1:1 (FIRST-MOUT HWASH BLM) oral suspension 15 mL 08-12 22:30: 00 08-12 22:54 :00 No 15mL 15 mL, Oral, ONCE, 1 dose, On Sat08/12/23 at 1630, Routine [facility] ondansetron 4 mg disintegrat ing tablet 08-12 00:00: 00 Yes [id number] 4mg Take 1 tablet by mouth every 8 (eight) hours as needed for Nausea and Vomiting (N/V). [facility] aluminum & magnesium hydroxide-s imethicone 400-400-40 mg/5 mL suspension 08-12 00:00: 00 Yes [id number] 10mL Take 10 mL by mouth every 8 (eight) hours as needed for Indigestio n. [facility] methylPREDN ISolone 4 mg tablets 2022-07 00:00: 00 Yes [id number] Take by mouth SEE-INSTRU CTIONS. follow package directions [facility] cyclobenzap rine 5 mg tablet 2022-07 00:00: 00 07-20 05:59 :00 No [id number] 5mg Take 1 tablet by mouth in the morning and 1 tablet at noon and 1 tablet in the evening. Do all this for 14 days. [facility] SERTraline 100 mg tablet 2022-07 00:00: 00 Yes 100mg Take 1 tablet by mouth at bedtime. [facility] ARIPiprazol e 5 mg tablet 2022-07 00:00: 00 Yes 5mg Take 1 tablet by mouth at bedtime. [facility] busPIRone 30 mg tablet 2022-07 024 10:55: 16 Yes 30mg Take 1 tablet by mouth in the morning and 1 tablet at noon and 1 tablet in the evening. [facility] valACYclovi r 500 mg tablet 2022-07 16:09: 58 04-23 00:00 :00 No 500mg Take 1 tablet by mouth in the morning. [facility] valACYclovi r 500 mg tablet 2022-07 00:00: 00 04-29 04:59 :00 No [id number] 500mg Take 1 tablet by mouth in the morning and 1 tablet in the evening. Do all this for 5 days. [facility] metroNIDAZO LE 500 mg tablet 2022-07 00:00: 00 04-24 04:59 :00 No [id number] 2000mg Take 4 tablets by mouth once now for 1 dose. [facility] pantoprazol e 40 mg EC tablet 2023-0 9-05 00:00: 00 10-08 00:00 :00 No [id number] 40mg Take 1 tablet by mouth in the morning. [facility] SERTraline 50 mg tablet 02-07 00:00: 00 Yes 50mg Take 1 tablet by mouth at bedtime. [facility] SERTraline 50 mg tablet 02-07 00:00: 00 Yes 100mg Take 2 tablets by mouth at bedtime. [facility] busPIRone 10 mg tablet 01-19 00:00: 00 Yes 10mg Take 1 tablet by mouth in the morning and 1 tablet in the evening. [facility] busPIRone 10 mg tablet 01-19 00:00: 00 04-30 00:00 :00 No 15mg Take 1.5 tablets by mouth in the morning and 1.5 tablets in the evening. [facility] Methylcellu lose, with Sugar, (CITRUCEL, SUCROSE,) powder 01-03 00:00: 00 Yes [id number] 3g Take 3 g by mouth in the morning and 3 g in the evening. [facility] omeprazole 40 mg capsule 01-03 00:00: 00 Yes [id number] 40mg Take 1 capsule by mouth 2 (two) times daily before breakfast and dinner. [facility] Phenyleph-P ramoxin-Gly cr-W.Pet 0.25-1 % Crea 01-03 00:00: 00 Yes [id number] Apply to area(s) 2 (two) times daily. [facility] pantoprazol e 40 mg EC tablet 12-31 00:00: 00 01-03 00:00 :00 No [id number] 40mg Take 1 tablet by mouth in the morning. [facility] SERTraline (ZOLOFT) 25 mg tablet 12-13 00:00: 00 03-12 00:00 :00 No [id number] 12.5mg Take 0.5 tablets by mouth in the morning. [facility] busPIRone 5 mg tablet 12-12 00:00: 00 03-12 00:00 :00 No [id number] 5mg Take 1 tablet by mouth in the morning and 1 tablet in the evening. [facility] SERTraline (ZOLOFT) 50 mg tablet 12-12 00:00: 00 12-13 00:00 :00 No [id number] Take 0.5 tablets by mouth daily for 8 days, THEN 1 tablet daily for 30 days. [facility] acetaminoph en (TYLENOL) tablet 1,000 mg 12-12 00:00: 00 12-11 23:38 :00 No 1000mg 1,000 mg, Oral, ONCE, 1 dose, On Sat12/11/22 at 1900, Routine [facility] NaCl 0.9% (NS) bolus infusion 1,000 mL 12-11 23:45: 00 12-12 01:19 :00 No 1000mL at 999 mL/hr, 1,000 mL, IV Infusion, ONCE, 1 dose, On Sat12/11/22 at 1845, ANNA [facility] ketorolac (TORADOL) injection 30 mg 12-11 23:45: 00 12-11 23:38 :00 No 30mg 30 mg, Slow IV Push, ONCE, 1 dose, On Sat12/11/22 at 1845, ANNA [facility] hydrOXYzine (ATARAX) tablet 50 mg 12-11 23:00: 00 12-11 23:38 :00 No 50mg 50 mg, Oral, ONCE, 1 dose, On Sat12/11/22 at 1800, ANNA [facility] hydrOXYzine 50 mg tablet 12-11 00:00: 00 Yes [id number] 50mg Take 1 tablet by mouth every 8 (eight) hours as needed for Anxiety. [facility] ibuprofen 600 mg tablet 12-11 00:00: 00 01-03 00:00 :00 No [id number] 600mg Take 1 tablet by mouth every 6 (six) hours as needed for Pain (scale 4-6). [facility] ketorolac (TORADOL) injection 30 mg 12-08 23:45: 00 12-08 23:01 :00 No 30mg 30 mg, Slow IV Push, ONCE, 1 dose, On 12/08/22 at 1845, Routine [facility] NaCl 0.9% (NS) IV infusion 1,000 mL 12-08 21:45: 00 Yes 1000mL at 999 mL/hr, Intravenou s, CONTINUOUS , Starting on 12/08/22 at 1645, Until Discontinu ed, ANNA [facility] gabapentin 300 mg capsule 12-05 00:00: 00 12-27 04:59 :00 No [id number] 300mg Take 1 capsule by mouth in the morning and 1 capsule at noon and 1 capsule in the evening. Do all this for 21 days. [facility] valACYclovi r 500 mg tablet 11-27 15:38: 27 Yes 500mg Take 1 tablet by mouth in the morning. [facility] ketorolac (TORADOL) injection 30 mg 11-14 02:30: 00 11-14 01:44 :00 No 30mg 30 mg, Slow IV Push, ONCE, 1 dose, On Sat11/13/22 at 2130, ANNA [facility] ibuprofen 800 mg tablet 11-13 00:00: 00 12-12 00:00 :00 No [id number] 800mg Take 1 tablet by mouth in the morning and 1 tablet at noon and 1 tablet in the evening. Take with meals. [facility] cyclobenzap rine 5 mg tablet 11-06 00:00: 00 Yes [id number] 5mg Take 1 tablet by mouth in the morning and 1 tablet at noon and 1 tablet in the evening. [facility] methylPREDN ISolone (MEDROL, TRAV,) 4 mg tablets 11-06 00:00: 00 11-12 04:59 :00 No [id number] Take by mouth SEE-INSTRU CTIONS for 5 days. follow package directions [facility] pantoprazol e 40 mg EC tablet 18 00:00: 00 12-31 00:00 :00 No [id number] 40mg Take 1 tablet by mouth in the morning. [facility] famotidine (PEPCID ORAL) 08-07 13:33: 27 08-07 00:00 :00 No Take by mouth. [facility] ondansetron (ZOFRAN) 4 mg tablet 08-07 00:00: 00 Yes [id number] 4mg Take 1 tablet by mouth every 8 (eight) hours as needed for Nausea and Vomiting (N/V). [facility] pantoprazol e 40 mg EC tablet 08-07 00:00: 00 10-23 00:00 :00 No [id number] 40mg Take 1 tablet by mouth in the morning. [facility] famotidine 20 mg in NS 50 ml (PEPCID) 20 mg/50 mL Piggyback 20 mg 12-28 19:45: 00 12-28 19:31 :00 No 20mg 20 mg, IV Piggyback, ONCE, 1 dose, Sat12/28/20 at 1445, 50 mL [facility] NaCl 0.9% (NS) bolus infusion 1,000 mL 12-28 19:30: 00 12-28 19:31 :00 No 1000mL at 999 mL/hr, 1,000 mL, IV Infusion, ONCE, 1 dose, Sat12/28/20 at 1430, STAT [facility] iopamidol (ISOVUE 370-500 mL) injection 120 mL 12-28 18:40: 00 12-28 18:40 :00 No [id number] 120mL 120 mL, Intravenou s, ONCE, 1 dose, Sat12/28/20 at 1400, Routine [facility] ondansetron (ZOFRAN (PF)) injection 4 mg 12-28 18:30: 00 12-28 17:42 :00 No 4mg 4 mg, Slow IV Push, ONCE, 1 dose, 12/28/20 at 1330, [facility] ondansetron (ZOFRAN ODT) 4 mg disintegrat ing tablet 12-28 00:00: 00 08-07 00:00 :00 No [id number] 4mg Take 1 tablet by mouth every 8 (eight) hours as needed for Nausea and Vomiting (N/V). [facility] enoxaparin (LOVENOX) injection 30 mg 12-10 22:00: 00 Yes 30mg 30 mg, Subcutaneo us, DAILY, First dose on 12/10/20 at 1700, Until Discontinu ed, Routine [facility] lactated ringers IV infusion 1,000 mL 12-10 16:00: 00 Yes 1000mL at 100 mL/hr, 1,000 mL, IV Infusion, CONTINUOUS , Starting 12/10/20 at 1100, Until Discontinu ed, Routine [facility] acetaminoph en (TYLENOL) tablet 650 mg 12-10 14:58: 36 Yes 650mg 650 mg, Oral, Q6HPRN, Starting 12/10/20 at 0958, Until Discontinu ed, Routine, Pain (scale 1-3) [facility] ondansetron (ZOFRAN (PF)) injection 4 mg 12-10 13:00: 00 12-10 12:15 :00 No 4mg 4 mg, Slow IV Push, ONCE, 1 dose, 12/10/20 at 0800, [facility] NaCl 0.9% (NS) bolus infusion 1,000 mL 12-10 12:00: 00 12-10 12:15 :00 No 1000mL at 999 mL/hr, 1,000 mL, IV Infusion, ONCE, 1 dose, 12/10/20 at 0700, [facility] chlorhexidi ne 0.12 % mouthwash 11-21 00:00: 00 12-10 00:00 :00 No [id number] 15mL Swish and spit out 15 mL 2 (two) times daily. [facility] methylPREDN ISolone (MEDROL, TRAV,) 4 mg tablets 11-21 00:00: 12-10 00:00 :00 No [id number] Take by mouth SEE-INSTRU CTIONS. follow package directions [facility] acetaminoph en-codeine (TYLENOL-CO DEINE #3) 300-30 mg tablet 11-21 00:00: 00 12-10 00:00 :00 No [id number] 1{tbl} Take 1 tablet by mouth every 4 (four) hours as needed for Pain (scale 7-10). Indication s: acute pain [facility] ondansetron 4 mg disintegrat ing tablet 11-21 00:00: 00 12-10 00:00 :00 No [id number] 4mg Take 1 tablet by mouth every 8 (eight) hours as needed for Nausea and Vomiting (N/V). [facility] clindamycin 150 mg capsule 11-21 00:00: 00 11-29 04:59 :00 No [id number] 300mg Take 2 capsules by mouth 4 (four) times daily for 7 days. [facility] azithromyci n (ZITHROMAX Z-TRAV) 250 mg tablet 10-15 00:00: 00 12-10 00:00 :00 No [id number] 250mg Take 1 tablet by mouth SEE-INSTRU CTIONS. Take 500 mg day 1, then 250 mg days 2 to 5. [facility] dextrometho rphan-guaif enesin 10-100 mg/5 mL solution 10 00:00: 00 12-10 00:00 :00 No [id number] 10mL Take 10 mL by mouth every 6 (six) hours as needed for Cough. [facility] ibuprofen 800 mg tablet 410 00:00: 00 12-10 00:00 :00 No [id number] 800mg Take 1 tablet by mouth every 8 (eight) hours. [facility] cyclobenzap rine 5 mg tablet 2017-07 031 00:00: 00 12-10 00:00 :00 No 5mg Take 1 tablet by mouth 3 (three) times daily. [facility] CATAFLAM 50 mg tablet 2014-07 00:00: 00 12-10 00:00 :00 No 50mg Take 1 Tab by mouth 3 (three) times daily. [facility] Immunizations Ordered Immunization Name Filled Immunization Name Date Status Comments Source Hepatitis A Adult 2011-08-29 00:00:00 Completed [facility] Hepatitis A Adult 2011-08-29 00:00:00 Completed [facility] Hepatitis A Adult 2011-08-29 00:00:00 Completed [facility] Hepatitis A Adult 2011-08-29 00:00:00 Completed [facility] Hepatitis A Adult 2011-08-29 00:00:00 Completed [facility] Hepatitis A Adult 2011-08-29 00:00:00 Completed [facility] Hepatitis A Adult 2011-08-29 00:00:00 Completed [facility] Hepatitis A Adult 2011-08-29 00:00:00 Completed [facility] Hepatitis A Adult 2011-08-29 00:00:00 Completed [facility] Hepatitis A Adult 2011-08-29 00:00:00 Completed [facility] Hepatitis A Adult 2011-08-29 00:00:00 Completed [facility] Hepatitis A Adult 2011-08-29 00:00:00 Completed [facility] Hepatitis A Adult 2011-08-29 00:00:00 Completed [facility] Hepatitis A Adult 2011-08-29 00:00:00 Completed [facility] Hepatitis A Adult 2011-08-29 00:00:00 Completed [facility] Hepatitis A Adult 2011-08-29 00:00:00 Completed [facility] Hepatitis A Adult 2011-08-29 00:00:00 Completed [facility] Hepatitis A Adult 2011-08-29 00:00:00 Completed [facility] Hepatitis A Adult 2011-08-29 00:00:00 Completed [facility] Hepatitis A Adult 2011-08-29 00:00:00 Completed [facility] Hepatitis A Adult 2011-08-29 00:00:00 Completed [facility] Hepatitis A Adult 2011-08-29 00:00:00 Completed [facility] Hepatitis A Adult 2011-08-29 00:00:00 Completed [facility] Hepatitis A Adult 2011-08-29 00:00:00 Completed [facility] Hepatitis A Adult 2011-08-29 00:00:00 Completed [facility] Hepatitis A Adult 2011-08-29 00:00:00 Completed [facility] Hepatitis A Adult 2011-08-29 00:00:00 Completed [facility] Hepatitis A Adult 2011-08-29 00:00:00 Completed [facility] Meningococcal Polysaccharide (groups A, C, Y and W-135) conjugate vaccine (MCV4P) 2009-02-28 00:00:00 Completed [facility] TDAP 2009-02-28 00:00:00 Completed [facility] Varicella (varivax)(chicken pox) 2009-02-28 00:00:00 Completed [facility] HEPATITIS A 2009-02-28 00:00:00 Completed [facility] Meningococcal Polysaccharide (groups A, C, Y and W-135) conjugate vaccine (MCV4P) 2009-02-28 00:00:00 Completed [facility] TDAP 2009-02-28 00:00:00 Completed [facility] Varicella (varivax)(chicken pox) 2009-02-28 00:00:00 Completed [facility] HEPATITIS A 2009-02-28 00:00:00 Completed [facility] Meningococcal Polysaccharide (groups A, C, Y and W-135) conjugate vaccine (MCV4P) 2009-02-28 00:00:00 Completed [facility] TDAP 2009-02-28 00:00:00 Completed [facility] Varicella (varivax)(chicken pox) 2009-02-28 00:00:00 Completed [facility] HEPATITIS A 2009-02-28 00:00:00 Completed [facility] Meningococcal Polysaccharide (groups A, C, Y and W-135) conjugate vaccine (MCV4P) 2009-02-28 00:00:00 Completed [facility] TDAP 2009-02-28 00:00:00 Completed [facility] Varicella (varivax)(chicken pox) 2009-02-28 00:00:00 Completed [facility] HEPATITIS A 2009-02-28 00:00:00 Completed [facility] Meningococcal Polysaccharide (groups A, C, Y and W-135) conjugate vaccine (MCV4P) 2009-02-28 00:00:00 Completed [facility] TDAP 2009-02-28 00:00:00 Completed [facility] Varicella (varivax)(chicken pox) 2009-02-28 00:00:00 Completed [facility] HEPATITIS A 2009-02-28 00:00:00 Completed [facility] Meningococcal Polysaccharide (groups A, C, Y and W-135) conjugate vaccine (MCV4P) 2009-02-28 00:00:00 Completed [facility] TDAP 2009-02-28 00:00:00 Completed [facility] Varicella (varivax)(chicken pox) 2009-02-28 00:00:00 Completed [facility] HEPATITIS A 2009-02-28 00:00:00 Completed [facility] Meningococcal Polysaccharide (groups A, C, Y and W-135) conjugate vaccine (MCV4P) 2009-02-28 00:00:00 Completed [facility] TDAP 2009-02-28 00:00:00 Completed [facility] Varicella (varivax)(chicken pox) 2009-02-28 00:00:00 Completed [facility] HEPATITIS A 2009-02-28 00:00:00 Completed [facility] Meningococcal Polysaccharide (groups A, C, Y and W-135) conjugate vaccine (MCV4P) 2009-02-28 00:00:00 Completed [facility] TDAP 2009-02-28 00:00:00 Completed [facility] Varicella (varivax)(chicken pox) 2009-02-28 00:00:00 Completed [facility] HEPATITIS A 2009-02-28 00:00:00 Completed [facility] Meningococcal Polysaccharide (groups A, C, Y and W-135) conjugate vaccine (MCV4P) 2009-02-28 00:00:00 Completed [facility] TDAP 2009-02-28 00:00:00 Completed [facility] Varicella (varivax)(chicken pox) 2009-02-28 00:00:00 Completed [facility] HEPATITIS A 2009-02-28 00:00:00 Completed [facility] Meningococcal Polysaccharide (groups A, C, Y and W-135) conjugate vaccine (MCV4P) 2009-02-28 00:00:00 Completed [facility] TDAP 2009-02-28 00:00:00 Completed [facility] Varicella (varivax)(chicken pox) 2009-02-28 00:00:00 Completed [facility] HEPATITIS A 2009-02-28 00:00:00 Completed [facility] Meningococcal Polysaccharide (groups A, C, Y and W-135) conjugate vaccine (MCV4P) 2009-02-28 00:00:00 Completed [facility] TDAP 2009-02-28 00:00:00 Completed [facility] Varicella (varivax)(chicken pox) 2009-02-28 00:00:00 Completed [facility] HEPATITIS A 2009-02-28 00:00:00 Completed [facility] Meningococcal Polysaccharide (groups A, C, Y and W-135) conjugate vaccine (MCV4P) 2009-02-28 00:00:00 Completed [facility] TDAP 2009-02-28 00:00:00 Completed [facility] Varicella (varivax)(chicken pox) 2009-02-28 00:00:00 Completed [facility] HEPATITIS A 2009-02-28 00:00:00 Completed [facility] Meningococcal Polysaccharide (groups A, C, Y and W-135) conjugate vaccine (MCV4P) 2009-02-28 00:00:00 Completed [facility] TDAP 2009-02-28 00:00:00 Completed [facility] Varicella (varivax)(chicken pox) 2009-02-28 00:00:00 Completed [facility] HEPATITIS A 2009-02-28 00:00:00 Completed [facility] Meningococcal Polysaccharide (groups A, C, Y and W-135) conjugate vaccine (MCV4P) 2009-02-28 00:00:00 Completed [facility] TDAP 2009-02-28 00:00:00 Completed [facility] Varicella (varivax)(chicken pox) 2009-02-28 00:00:00 Completed [facility] HEPATITIS A 2009-02-28 00:00:00 Completed [facility] Meningococcal Polysaccharide (groups A, C, Y and W-135) conjugate vaccine (MCV4P) 2009-02-28 00:00:00 Completed [facility] TDAP 2009-02-28 00:00:00 Completed [facility] Varicella (varivax)(chicken pox) 2009-02-28 00:00:00 Completed [facility] HEPATITIS A 2009-02-28 00:00:00 Completed [facility] Meningococcal Polysaccharide (groups A, C, Y and W-135) conjugate vaccine (MCV4P) 2009-02-28 00:00:00 Completed [facility] TDAP 2009-02-28 00:00:00 Completed [facility] Varicella (varivax)(chicken pox) 2009-02-28 00:00:00 Completed [facility] HEPATITIS A 2009-02-28 00:00:00 Completed [facility] Meningococcal Polysaccharide (groups A, C, Y and W-135) conjugate vaccine (MCV4P) 2009-02-28 00:00:00 Completed [facility] TDAP 2009-02-28 00:00:00 Completed [facility] Varicella (varivax)(chicken pox) 2009-02-28 00:00:00 Completed [facility] HEPATITIS A 2009-02-28 00:00:00 Completed [facility] Meningococcal Polysaccharide (groups A, C, Y and W-135) conjugate vaccine (MCV4P) 2009-02-28 00:00:00 Completed [facility] TDAP 2009-02-28 00:00:00 Completed [facility] Varicella (varivax)(chicken pox) 2009-02-28 00:00:00 Completed [facility] HEPATITIS A 2009-02-28 00:00:00 Completed [facility] Meningococcal Polysaccharide (groups A, C, Y and W-135) conjugate vaccine (MCV4P) 2009-02-28 00:00:00 Completed [facility] TDAP 2009-02-28 00:00:00 Completed [facility] Varicella (varivax)(chicken pox) 2009-02-28 00:00:00 Completed [facility] HEPATITIS A 2009-02-28 00:00:00 Completed [facility] Meningococcal Polysaccharide (groups A, C, Y and W-135) conjugate vaccine (MCV4P) 2009-02-28 00:00:00 Completed [facility] TDAP 2009-02-28 00:00:00 Completed [facility] Varicella (varivax)(chicken pox) 2009-02-28 00:00:00 Completed [facility] HEPATITIS A 2009-02-28 00:00:00 Completed [facility] Meningococcal Polysaccharide (groups A, C, Y and W-135) conjugate vaccine (MCV4P) 2009-02-28 00:00:00 Completed [facility] TDAP 2009-02-28 00:00:00 Completed [facility] Varicella (varivax)(chicken pox) 2009-02-28 00:00:00 Completed [facility] HEPATITIS A 2009-02-28 00:00:00 Completed [facility] Meningococcal Polysaccharide (groups A, C, Y and W-135) conjugate vaccine (MCV4P) 2009-02-28 00:00:00 Completed [facility] TDAP 2009-02-28 00:00:00 Completed [facility] Varicella (varivax)(chicken pox) 2009-02-28 00:00:00 Completed [facility] HEPATITIS A 2009-02-28 00:00:00 Completed [facility] Meningococcal Polysaccharide (groups A, C, Y and W-135) conjugate vaccine (MCV4P) 2009-02-28 00:00:00 Completed [facility] TDAP 2009-02-28 00:00:00 Completed [facility] Varicella (varivax)(chicken pox) 2009-02-28 00:00:00 Completed [facility] HEPATITIS A 2009-02-28 00:00:00 Completed [facility] Meningococcal Polysaccharide (groups A, C, Y and W-135) conjugate vaccine (MCV4P) 2009-02-28 00:00:00 Completed [facility] TDAP 2009-02-28 00:00:00 Completed [facility] Varicella (varivax)(chicken pox) 2009-02-28 00:00:00 Completed [facility] HEPATITIS A 2009-02-28 00:00:00 Completed [facility] Meningococcal Polysaccharide (groups A, C, Y and W-135) conjugate vaccine (MCV4P) 2009-02-28 00:00:00 Completed [facility] TDAP 2009-02-28 00:00:00 Completed [facility] Varicella (varivax)(chicken pox) 2009-02-28 00:00:00 Completed [facility] HEPATITIS A 2009-02-28 00:00:00 Completed [facility] Meningococcal Polysaccharide (groups A, C, Y and W-135) conjugate vaccine (MCV4P) 2009-02-28 00:00:00 Completed [facility] TDAP 2009-02-28 00:00:00 Completed [facility] Varicella (varivax)(chicken pox) 2009-02-28 00:00:00 Completed [facility] HEPATITIS A 2009-02-28 00:00:00 Completed [facility] Meningococcal Polysaccharide (groups A, C, Y and W-135) conjugate vaccine (MCV4P) 2009-02-28 00:00:00 Completed [facility] TDAP 2009-02-28 00:00:00 Completed [facility] Varicella (varivax)(chicken pox) 2009-02-28 00:00:00 Completed [facility] HEPATITIS A 2009-02-28 00:00:00 Completed [facility] Meningococcal Polysaccharide (groups A, C, Y and W-135) conjugate vaccine (MCV4P) 2009-02-28 00:00:00 Completed [facility] TDAP 2009-02-28 00:00:00 Completed [facility] Varicella (varivax)(chicken pox) 2009-02-28 00:00:00 Completed [facility] HEPATITIS A 2009-02-28 00:00:00 Completed [facility] Poliovirus, Live, Oral, Trivalent 1999-04-26 00:00:00 Completed [facility] DTaP, Unspecified Formulation 1999-04-26 00:00:00 Completed [facility] Hep B, Adol or Pedi Dosage 1999-04-26 00:00:00 Completed [facility] Poliovirus, Live, Oral, Trivalent 1999-04-26 00:00:00 Completed [facility] DTaP, Unspecified Formulation 1999-04-26 00:00:00 Completed [facility] Hep B, Adol or Pedi Dosage 1999-04-26 00:00:00 Completed [facility] Poliovirus, Live, Oral, Trivalent 1999-04-26 00:00:00 Completed [facility] DTaP, Unspecified Formulation 1999-04-26 00:00:00 Completed [facility] Hep B, Adol or Pedi Dosage 1999-04-26 00:00:00 Completed [facility] Poliovirus, Live, Oral, Trivalent 1999-04-26 00:00:00 Completed [facility] DTaP, Unspecified Formulation 1999-04-26 00:00:00 Completed [facility] Hep B, Adol or Pedi Dosage 1999-04-26 00:00:00 Completed [facility] Poliovirus, Live, Oral, Trivalent 1999-04-26 00:00:00 Completed [facility] DTaP, Unspecified Formulation 1999-04-26 00:00:00 Completed [facility] Hep B, Adol or Pedi Dosage 1999-04-26 00:00:00 Completed [facility] Poliovirus, Live, Oral, Trivalent 1999-04-26 00:00:00 Completed [facility] DTaP, Unspecified Formulation 1999-04-26 00:00:00 Completed [facility] Hep B, Adol or Pedi Dosage 1999-04-26 00:00:00 Completed [facility] Poliovirus, Live, Oral, Trivalent 1999-04-26 00:00:00 Completed [facility] DTaP, Unspecified Formulation 1999-04-26 00:00:00 Completed [facility] Hep B, Adol or Pedi Dosage 1999-04-26 00:00:00 Completed [facility] Poliovirus, Live, Oral, Trivalent 1999-04-26 00:00:00 Completed [facility] DTaP, Unspecified Formulation 1999-04-26 00:00:00 Completed [facility] Hep B, Adol or Pedi Dosage 1999-04-26 00:00:00 Completed [facility] Poliovirus, Live, Oral, Trivalent 1999-04-26 00:00:00 Completed [facility] DTaP, Unspecified Formulation 1999-04-26 00:00:00 Completed [facility] Hep B, Adol or Pedi Dosage 1999-04-26 00:00:00 Completed [facility] Poliovirus, Live, Oral, Trivalent 1999-04-26 00:00:00 Completed [facility] DTaP, Unspecified Formulation 1999-04-26 00:00:00 Completed [facility] Hep B, Adol or Pedi Dosage 1999-04-26 00:00:00 Completed [facility] Poliovirus, Live, Oral, Trivalent 1999-04-26 00:00:00 Completed [facility] DTaP, Unspecified Formulation 1999-04-26 00:00:00 Completed [facility] Hep B, Adol or Pedi Dosage 1999-04-26 00:00:00 Completed [facility] Poliovirus, Live, Oral, Trivalent 1999-04-26 00:00:00 Completed [facility] DTaP, Unspecified Formulation 1999-04-26 00:00:00 Completed [facility] Hep B, Adol or Pedi Dosage 1999-04-26 00:00:00 Completed [facility] Poliovirus, Live, Oral, Trivalent 1999-04-26 00:00:00 Completed [facility] DTaP, Unspecified Formulation 1999-04-26 00:00:00 Completed [facility] Hep B, Adol or Pedi Dosage 1999-04-26 00:00:00 Completed [facility] Poliovirus, Live, Oral, Trivalent 1999-04-26 00:00:00 Completed [facility] DTaP, Unspecified Formulation 1999-04-26 00:00:00 Completed [facility] Hep B, Adol or Pedi Dosage 1999-04-26 00:00:00 Completed [facility] Poliovirus, Live, Oral, Trivalent 1999-04-26 00:00:00 Completed [facility] DTaP, Unspecified Formulation 1999-04-26 00:00:00 Completed [facility] Hep B, Adol or Pedi Dosage 1999-04-26 00:00:00 Completed [facility] Poliovirus, Live, Oral, Trivalent 1999-04-26 00:00:00 Completed [facility] DTaP, Unspecified Formulation 1999-04-26 00:00:00 Completed [facility] Hep B, Adol or Pedi Dosage 1999-04-26 00:00:00 Completed [facility] Poliovirus, Live, Oral, Trivalent 1999-04-26 00:00:00 Completed [facility] DTaP, Unspecified Formulation 1999-04-26 00:00:00 Completed [facility] Hep B, Adol or Pedi Dosage 1999-04-26 00:00:00 Completed [facility] Poliovirus, Live, Oral, Trivalent 1999-04-26 00:00:00 Completed [facility] DTaP, Unspecified Formulation 1999-04-26 00:00:00 Completed [facility] Hep B, Adol or Pedi Dosage 1999-04-26 00:00:00 Completed [facility] Poliovirus, Live, Oral, Trivalent 1999-04-26 00:00:00 Completed [facility] DTaP, Unspecified Formulation 1999-04-26 00:00:00 Completed [facility] Hep B, Adol or Pedi Dosage 1999-04-26 00:00:00 Completed [facility] Poliovirus, Live, Oral, Trivalent 1999-04-26 00:00:00 Completed [facility] DTaP, Unspecified Formulation 1999-04-26 00:00:00 Completed [facility] Hep B, Adol or Pedi Dosage 1999-04-26 00:00:00 Completed [facility] Poliovirus, Live, Oral, Trivalent 1999-04-26 00:00:00 Completed [facility] DTaP, Unspecified Formulation 1999-04-26 00:00:00 Completed [facility] Hep B, Adol or Pedi Dosage 1999-04-26 00:00:00 Completed [facility] Poliovirus, Live, Oral, Trivalent 1999-04-26 00:00:00 Completed [facility] DTaP, Unspecified Formulation 1999-04-26 00:00:00 Completed [facility] Hep B, Adol or Pedi Dosage 1999-04-26 00:00:00 Completed [facility] Poliovirus, Live, Oral, Trivalent 1999-04-26 00:00:00 Completed [facility] DTaP, Unspecified Formulation 1999-04-26 00:00:00 Completed [facility] Hep B, Adol or Pedi Dosage 1999-04-26 00:00:00 Completed [facility] Poliovirus, Live, Oral, Trivalent 1999-04-26 00:00:00 Completed [facility] DTaP, Unspecified Formulation 1999-04-26 00:00:00 Completed [facility] Hep B, Adol or Pedi Dosage 1999-04-26 00:00:00 Completed [facility] Poliovirus, Live, Oral, Trivalent 1999-04-26 00:00:00 Completed [facility] DTaP, Unspecified Formulation 1999-04-26 00:00:00 Completed [facility] Hep B, Adol or Pedi Dosage 1999-04-26 00:00:00 Completed [facility] Poliovirus, Live, Oral, Trivalent 1999-04-26 00:00:00 Completed [facility] DTaP, Unspecified Formulation 1999-04-26 00:00:00 Completed [facility] Hep B, Adol or Pedi Dosage 1999-04-26 00:00:00 Completed [facility] Poliovirus, Live, Oral, Trivalent 1999-04-26 00:00:00 Completed [facility] DTaP, Unspecified Formulation 1999-04-26 00:00:00 Completed [facility] Hep B, Adol or Pedi Dosage 1999-04-26 00:00:00 Completed [facility] Poliovirus, Live, Oral, Trivalent 1999-04-26 00:00:00 Completed [facility] DTaP, Unspecified Formulation 1999-04-26 00:00:00 Completed [facility] Hep B, Adol or Pedi Dosage 1999-04-26 00:00:00 Completed [facility] DTaP, Unspecified Formulation 1998-05-04 00:00:00 Completed [facility] DTaP, Unspecified Formulation 1998-05-04 00:00:00 Completed [facility] DTaP, Unspecified Formulation 1998-05-04 00:00:00 Completed [facility] DTaP, Unspecified Formulation 1998-05-04 00:00:00 Completed [facility] DTaP, Unspecified Formulation 1998-05-04 00:00:00 Completed [facility] DTaP, Unspecified Formulation 1998-05-04 00:00:00 Completed [facility] DTaP, Unspecified Formulation 1998-05-04 00:00:00 Completed [facility] DTaP, Unspecified Formulation 1998-05-04 00:00:00 Completed [facility] DTaP, Unspecified Formulation 1998-05-04 00:00:00 Completed [facility] DTaP, Unspecified Formulation 1998-05-04 00:00:00 Completed [facility] DTaP, Unspecified Formulation 1998-05-04 00:00:00 Completed [facility] DTaP, Unspecified Formulation 1998-05-04 00:00:00 Completed [facility] DTaP, Unspecified Formulation 1998-05-04 00:00:00 Completed [facility] DTaP, Unspecified Formulation 1998-05-04 00:00:00 Completed [facility] DTaP, Unspecified Formulation 1998-05-04 00:00:00 Completed [facility] DTaP, Unspecified Formulation 1998-05-04 00:00:00 Completed [facility] DTaP, Unspecified Formulation 1998-05-04 00:00:00 Completed [facility] DTaP, Unspecified Formulation 1998-05-04 00:00:00 Completed [facility] DTaP, Unspecified Formulation 1998-05-04 00:00:00 Completed [facility] DTaP, Unspecified Formulation 1998-05-04 00:00:00 Completed [facility] DTaP, Unspecified Formulation 1998-05-04 00:00:00 Completed [facility] DTaP, Unspecified Formulation 1998-05-04 00:00:00 Completed [facility] DTaP, Unspecified Formulation 1998-05-04 00:00:00 Completed [facility] DTaP, Unspecified Formulation 1998-05-04 00:00:00 Completed [facility] DTaP, Unspecified Formulation 1998-05-04 00:00:00 Completed [facility] DTaP, Unspecified Formulation 1998-05-04 00:00:00 Completed [facility] DTaP, Unspecified Formulation 1998-05-04 00:00:00 Completed [facility] DTaP, Unspecified Formulation 1998-05-04 00:00:00 Completed [facility] Haemophilus influenzae type b vaccine, conjugate unspecified formulation 1998-03-03 00:00:00 Completed [facility] MMR 1998-03-03 00:00:00 Completed [facility] Poliovirus, Live, Oral, Trivalent 1998-03-03 00:00:00 Completed [facility] DTaP, Unspecified Formulation 1998-03-03 00:00:00 Completed [facility] Hep B, Adol or Pedi Dosage 1998-03-03 00:00:00 Completed [facility] Haemophilus influenzae type b vaccine, conjugate unspecified formulation 1998-03-03 00:00:00 Completed [facility] MMR 1998-03-03 00:00:00 Completed [facility] Poliovirus, Live, Oral, Trivalent 1998-03-03 00:00:00 Completed [facility] DTaP, Unspecified Formulation 1998-03-03 00:00:00 Completed [facility] Hep B, Adol or Pedi Dosage 1998-03-03 00:00:00 Completed [facility] Haemophilus influenzae type b vaccine, conjugate unspecified formulation 1998-03-03 00:00:00 Completed [facility] MMR 1998-03-03 00:00:00 Completed [facility] Poliovirus, Live, Oral, Trivalent 1998-03-03 00:00:00 Completed [facility] DTaP, Unspecified Formulation 1998-03-03 00:00:00 Completed [facility] Hep B, Adol or Pedi Dosage 1998-03-03 00:00:00 Completed [facility] Haemophilus influenzae type b vaccine, conjugate unspecified formulation 1998-03-03 00:00:00 Completed [facility] MMR 1998-03-03 00:00:00 Completed [facility] Poliovirus, Live, Oral, Trivalent 1998-03-03 00:00:00 Completed [facility] DTaP, Unspecified Formulation 1998-03-03 00:00:00 Completed [facility] Hep B, Adol or Pedi Dosage 1998-03-03 00:00:00 Completed [facility] Haemophilus influenzae type b vaccine, conjugate unspecified formulation 1998-03-03 00:00:00 Completed [facility] MMR 1998-03-03 00:00:00 Completed [facility] Poliovirus, Live, Oral, Trivalent 1998-03-03 00:00:00 Completed [facility] DTaP, Unspecified Formulation 1998-03-03 00:00:00 Completed [facility] Hep B, Adol or Pedi Dosage 1998-03-03 00:00:00 Completed [facility] Haemophilus influenzae type b vaccine, conjugate unspecified formulation 1998-03-03 00:00:00 Completed [facility] MMR 1998-03-03 00:00:00 Completed [facility] Poliovirus, Live, Oral, Trivalent 1998-03-03 00:00:00 Completed [facility] DTaP, Unspecified Formulation 1998-03-03 00:00:00 Completed [facility] Hep B, Adol or Pedi Dosage 1998-03-03 00:00:00 Completed [facility] Haemophilus influenzae type b vaccine, conjugate unspecified formulation 1998-03-03 00:00:00 Completed [facility] MMR 1998-03-03 00:00:00 Completed [facility] Poliovirus, Live, Oral, Trivalent 1998-03-03 00:00:00 Completed [facility] DTaP, Unspecified Formulation 1998-03-03 00:00:00 Completed [facility] Hep B, Adol or Pedi Dosage 1998-03-03 00:00:00 Completed [facility] Haemophilus influenzae type b vaccine, conjugate unspecified formulation 1998-03-03 00:00:00 Completed [facility] MMR 1998-03-03 00:00:00 Completed [facility] Poliovirus, Live, Oral, Trivalent 1998-03-03 00:00:00 Completed [facility] DTaP, Unspecified Formulation 1998-03-03 00:00:00 Completed [facility] Hep B, Adol or Pedi Dosage 1998-03-03 00:00:00 Completed [facility] Haemophilus influenzae type b vaccine, conjugate unspecified formulation 1998-03-03 00:00:00 Completed [facility] MMR 1998-03-03 00:00:00 Completed [facility] Poliovirus, Live, Oral, Trivalent 1998-03-03 00:00:00 Completed [facility] DTaP, Unspecified Formulation 1998-03-03 00:00:00 Completed [facility] Hep B, Adol or Pedi Dosage 1998-03-03 00:00:00 Completed [facility] Haemophilus influenzae type b vaccine, conjugate unspecified formulation 1998-03-03 00:00:00 Completed [facility] MMR 1998-03-03 00:00:00 Completed [facility] Poliovirus, Live, Oral, Trivalent 1998-03-03 00:00:00 Completed [facility] DTaP, Unspecified Formulation 1998-03-03 00:00:00 Completed [facility] Hep B, Adol or Pedi Dosage 1998-03-03 00:00:00 Completed [facility] Haemophilus influenzae type b vaccine, conjugate unspecified formulation 1998-03-03 00:00:00 Completed [facility] MMR 1998-03-03 00:00:00 Completed [facility] Poliovirus, Live, Oral, Trivalent 1998-03-03 00:00:00 Completed [facility] DTaP, Unspecified Formulation 1998-03-03 00:00:00 Completed [facility] Hep B, Adol or Pedi Dosage 1998-03-03 00:00:00 Completed [facility] Haemophilus influenzae type b vaccine, conjugate unspecified formulation 1998-03-03 00:00:00 Completed [facility] MMR 1998-03-03 00:00:00 Completed [facility] Poliovirus, Live, Oral, Trivalent 1998-03-03 00:00:00 Completed [facility] DTaP, Unspecified Formulation 1998-03-03 00:00:00 Completed [facility] Hep B, Adol or Pedi Dosage 1998-03-03 00:00:00 Completed [facility] Haemophilus influenzae type b vaccine, conjugate unspecified formulation 1998-03-03 00:00:00 Completed [facility] MMR 1998-03-03 00:00:00 Completed [facility] Poliovirus, Live, Oral, Trivalent 1998-03-03 00:00:00 Completed [facility] DTaP, Unspecified Formulation 1998-03-03 00:00:00 Completed [facility] Hep B, Adol or Pedi Dosage 1998-03-03 00:00:00 Completed [facility] Haemophilus influenzae type b vaccine, conjugate unspecified formulation 1998-03-03 00:00:00 Completed [facility] MMR 1998-03-03 00:00:00 Completed [facility] Poliovirus, Live, Oral, Trivalent 1998-03-03 00:00:00 Completed [facility] DTaP, Unspecified Formulation 1998-03-03 00:00:00 Completed [facility] Hep B, Adol or Pedi Dosage 1998-03-03 00:00:00 Completed [facility] Haemophilus influenzae type b vaccine, conjugate unspecified formulation 1998-03-03 00:00:00 Completed [facility] MMR 1998-03-03 00:00:00 Completed [facility] Poliovirus, Live, Oral, Trivalent 1998-03-03 00:00:00 Completed [facility] DTaP, Unspecified Formulation 1998-03-03 00:00:00 Completed [facility] Hep B, Adol or Pedi Dosage 1998-03-03 00:00:00 Completed [facility] Haemophilus influenzae type b vaccine, conjugate unspecified formulation 1998-03-03 00:00:00 Completed [facility] MMR 1998-03-03 00:00:00 Completed [facility] Poliovirus, Live, Oral, Trivalent 1998-03-03 00:00:00 Completed [facility] DTaP, Unspecified Formulation 1998-03-03 00:00:00 Completed [facility] Hep B, Adol or Pedi Dosage 1998-03-03 00:00:00 Completed [facility] Haemophilus influenzae type b vaccine, conjugate unspecified formulation 1998-03-03 00:00:00 Completed [facility] MMR 1998-03-03 00:00:00 Completed [facility] Poliovirus, Live, Oral, Trivalent 1998-03-03 00:00:00 Completed [facility] DTaP, Unspecified Formulation 1998-03-03 00:00:00 Completed [facility] Hep B, Adol or Pedi Dosage 1998-03-03 00:00:00 Completed [facility] Haemophilus influenzae type b vaccine, conjugate unspecified formulation 1998-03-03 00:00:00 Completed [facility] MMR 1998-03-03 00:00:00 Completed [facility] Poliovirus, Live, Oral, Trivalent 1998-03-03 00:00:00 Completed [facility] DTaP, Unspecified Formulation 1998-03-03 00:00:00 Completed [facility] Hep B, Adol or Pedi Dosage 1998-03-03 00:00:00 Completed [facility] Haemophilus influenzae type b vaccine, conjugate unspecified formulation 1998-03-03 00:00:00 Completed [facility] MMR 1998-03-03 00:00:00 Completed [facility] Poliovirus, Live, Oral, Trivalent 1998-03-03 00:00:00 Completed [facility] DTaP, Unspecified Formulation 1998-03-03 00:00:00 Completed [facility] Hep B, Adol or Pedi Dosage 1998-03-03 00:00:00 Completed [facility] Haemophilus influenzae type b vaccine, conjugate unspecified formulation 1998-03-03 00:00:00 Completed [facility] MMR 1998-03-03 00:00:00 Completed [facility] Poliovirus, Live, Oral, Trivalent 1998-03-03 00:00:00 Completed [facility] DTaP, Unspecified Formulation 1998-03-03 00:00:00 Completed [facility] Hep B, Adol or Pedi Dosage 1998-03-03 00:00:00 Completed [facility] Haemophilus influenzae type b vaccine, conjugate unspecified formulation 1998-03-03 00:00:00 Completed [facility] MMR 1998-03-03 00:00:00 Completed [facility] Poliovirus, Live, Oral, Trivalent 1998-03-03 00:00:00 Completed [facility] DTaP, Unspecified Formulation 1998-03-03 00:00:00 Completed [facility] Hep B, Adol or Pedi Dosage 1998-03-03 00:00:00 Completed [facility] Haemophilus influenzae type b vaccine, conjugate unspecified formulation 1998-03-03 00:00:00 Completed [facility] MMR 1998-03-03 00:00:00 Completed [facility] Poliovirus, Live, Oral, Trivalent 1998-03-03 00:00:00 Completed [facility] DTaP, Unspecified Formulation 1998-03-03 00:00:00 Completed [facility] Hep B, Adol or Pedi Dosage 1998-03-03 00:00:00 Completed [facility] Haemophilus influenzae type b vaccine, conjugate unspecified formulation 1998-03-03 00:00:00 Completed [facility] MMR 1998-03-03 00:00:00 Completed [facility] Poliovirus, Live, Oral, Trivalent 1998-03-03 00:00:00 Completed [facility] DTaP, Unspecified Formulation 1998-03-03 00:00:00 Completed [facility] Hep B, Adol or Pedi Dosage 1998-03-03 00:00:00 Completed [facility] Haemophilus influenzae type b vaccine, conjugate unspecified formulation 1998-03-03 00:00:00 Completed [facility] MMR 1998-03-03 00:00:00 Completed [facility] Poliovirus, Live, Oral, Trivalent 1998-03-03 00:00:00 Completed [facility] DTaP, Unspecified Formulation 1998-03-03 00:00:00 Completed [facility] Hep B, Adol or Pedi Dosage 1998-03-03 00:00:00 Completed [facility] Haemophilus influenzae type b vaccine, conjugate unspecified formulation 1998-03-03 00:00:00 Completed [facility] MMR 1998-03-03 00:00:00 Completed [facility] Poliovirus, Live, Oral, Trivalent 1998-03-03 00:00:00 Completed [facility] DTaP, Unspecified Formulation 1998-03-03 00:00:00 Completed [facility] Hep B, Adol or Pedi Dosage 1998-03-03 00:00:00 Completed [facility] Haemophilus influenzae type b vaccine, conjugate unspecified formulation 1998-03-03 00:00:00 Completed [facility] MMR 1998-03-03 00:00:00 Completed [facility] Poliovirus, Live, Oral, Trivalent 1998-03-03 00:00:00 Completed [facility] DTaP, Unspecified Formulation 1998-03-03 00:00:00 Completed [facility] Hep B, Adol or Pedi Dosage 1998-03-03 00:00:00 Completed [facility] Haemophilus influenzae type b vaccine, conjugate unspecified formulation 1998-03-03 00:00:00 Completed [facility] MMR 1998-03-03 00:00:00 Completed [facility] Poliovirus, Live, Oral, Trivalent 1998-03-03 00:00:00 Completed [facility] DTaP, Unspecified Formulation 1998-03-03 00:00:00 Completed [facility] Hep B, Adol or Pedi Dosage 1998-03-03 00:00:00 Completed [facility] Haemophilus influenzae type b vaccine, conjugate unspecified formulation 1998-03-03 00:00:00 Completed [facility] MMR 1998-03-03 00:00:00 Completed [facility] Poliovirus, Live, Oral, Trivalent 1998-03-03 00:00:00 Completed [facility] DTaP, Unspecified Formulation 1998-03-03 00:00:00 Completed [facility] Hep B, Adol or Pedi Dosage 1998-03-03 00:00:00 Completed [facility] Haemophilus influenzae type b vaccine, conjugate unspecified formulation 1998-01-25 00:00:00 Completed [facility] MMR 1998-01-25 00:00:00 Completed [facility] Poliovirus, Live, Oral, Trivalent 1998-01-25 00:00:00 Completed [facility] DTaP, Unspecified Formulation 1998-01-25 00:00:00 Completed [facility] Hep B, Adol or Pedi Dosage 1998-01-25 00:00:00 Completed [facility] Haemophilus influenzae type b vaccine, conjugate unspecified formulation 1998-01-25 00:00:00 Completed [facility] MMR 1998-01-25 00:00:00 Completed [facility] Poliovirus, Live, Oral, Trivalent 1998-01-25 00:00:00 Completed [facility] DTaP, Unspecified Formulation 1998-01-25 00:00:00 Completed [facility] Hep B, Adol or Pedi Dosage 1998-01-25 00:00:00 Completed [facility] Haemophilus influenzae type b vaccine, conjugate unspecified formulation 1998-01-25 00:00:00 Completed [facility] MMR 1998-01-25 00:00:00 Completed [facility] Poliovirus, Live, Oral, Trivalent 1998-01-25 00:00:00 Completed [facility] DTaP, Unspecified Formulation 1998-01-25 00:00:00 Completed [facility] Hep B, Adol or Pedi Dosage 1998-01-25 00:00:00 Completed [facility] Haemophilus influenzae type b vaccine, conjugate unspecified formulation 1998-01-25 00:00:00 Completed [facility] MMR 1998-01-25 00:00:00 Completed [facility] Poliovirus, Live, Oral, Trivalent 1998-01-25 00:00:00 Completed [facility] DTaP, Unspecified Formulation 1998-01-25 00:00:00 Completed [facility] Hep B, Adol or Pedi Dosage 1998-01-25 00:00:00 Completed [facility] Haemophilus influenzae type b vaccine, conjugate unspecified formulation 1998-01-25 00:00:00 Completed [facility] MMR 1998-01-25 00:00:00 Completed [facility] Poliovirus, Live, Oral, Trivalent 1998-01-25 00:00:00 Completed [facility] DTaP, Unspecified Formulation 1998-01-25 00:00:00 Completed [facility] Hep B, Adol or Pedi Dosage 1998-01-25 00:00:00 Completed [facility] Haemophilus influenzae type b vaccine, conjugate unspecified formulation 1998-01-25 00:00:00 Completed [facility] MMR 1998-01-25 00:00:00 Completed [facility] Poliovirus, Live, Oral, Trivalent 1998-01-25 00:00:00 Completed [facility] DTaP, Unspecified Formulation 1998-01-25 00:00:00 Completed [facility] Hep B, Adol or Pedi Dosage 1998-01-25 00:00:00 Completed [facility] Haemophilus influenzae type b vaccine, conjugate unspecified formulation 1998-01-25 00:00:00 Completed [facility] MMR 1998-01-25 00:00:00 Completed [facility] Poliovirus, Live, Oral, Trivalent 1998-01-25 00:00:00 Completed [facility] DTaP, Unspecified Formulation 1998-01-25 00:00:00 Completed [facility] Hep B, Adol or Pedi Dosage 1998-01-25 00:00:00 Completed [facility] Haemophilus influenzae type b vaccine, conjugate unspecified formulation 1998-01-25 00:00:00 Completed [facility] MMR 1998-01-25 00:00:00 Completed [facility] Poliovirus, Live, Oral, Trivalent 1998-01-25 00:00:00 Completed [facility] DTaP, Unspecified Formulation 1998-01-25 00:00:00 Completed [facility] Hep B, Adol or Pedi Dosage 1998-01-25 00:00:00 Completed [facility] Haemophilus influenzae type b vaccine, conjugate unspecified formulation 1998-01-25 00:00:00 Completed [facility] MMR 1998-01-25 00:00:00 Completed [facility] Poliovirus, Live, Oral, Trivalent 1998-01-25 00:00:00 Completed [facility] DTaP, Unspecified Formulation 1998-01-25 00:00:00 Completed [facility] Hep B, Adol or Pedi Dosage 1998-01-25 00:00:00 Completed [facility] Haemophilus influenzae type b vaccine, conjugate unspecified formulation 1998-01-25 00:00:00 Completed [facility] MMR 1998-01-25 00:00:00 Completed [facility] Poliovirus, Live, Oral, Trivalent 1998-01-25 00:00:00 Completed [facility] DTaP, Unspecified Formulation 1998-01-25 00:00:00 Completed [facility] Hep B, Adol or Pedi Dosage 1998-01-25 00:00:00 Completed [facility] Haemophilus influenzae type b vaccine, conjugate unspecified formulation 1998-01-25 00:00:00 Completed [facility] MMR 1998-01-25 00:00:00 Completed [facility] Poliovirus, Live, Oral, Trivalent 1998-01-25 00:00:00 Completed [facility] DTaP, Unspecified Formulation 1998-01-25 00:00:00 Completed [facility] Hep B, Adol or Pedi Dosage 1998-01-25 00:00:00 Completed [facility] Haemophilus influenzae type b vaccine, conjugate unspecified formulation 1998-01-25 00:00:00 Completed [facility] MMR 1998-01-25 00:00:00 Completed [facility] Poliovirus, Live, Oral, Trivalent 1998-01-25 00:00:00 Completed [facility] DTaP, Unspecified Formulation 1998-01-25 00:00:00 Completed [facility] Hep B, Adol or Pedi Dosage 1998-01-25 00:00:00 Completed [facility] Haemophilus influenzae type b vaccine, conjugate unspecified formulation 1998-01-25 00:00:00 Completed [facility] MMR 1998-01-25 00:00:00 Completed [facility] Poliovirus, Live, Oral, Trivalent 1998-01-25 00:00:00 Completed [facility] DTaP, Unspecified Formulation 1998-01-25 00:00:00 Completed [facility] Hep B, Adol or Pedi Dosage 1998-01-25 00:00:00 Completed [facility] Haemophilus influenzae type b vaccine, conjugate unspecified formulation 1998-01-25 00:00:00 Completed [facility] MMR 1998-01-25 00:00:00 Completed [facility] Poliovirus, Live, Oral, Trivalent 1998-01-25 00:00:00 Completed [facility] DTaP, Unspecified Formulation 1998-01-25 00:00:00 Completed [facility] Hep B, Adol or Pedi Dosage 1998-01-25 00:00:00 Completed [facility] Haemophilus influenzae type b vaccine, conjugate unspecified formulation 1998-01-25 00:00:00 Completed [facility] MMR 1998-01-25 00:00:00 Completed [facility] Poliovirus, Live, Oral, Trivalent 1998-01-25 00:00:00 Completed [facility] DTaP, Unspecified Formulation 1998-01-25 00:00:00 Completed [facility] Hep B, Adol or Pedi Dosage 1998-01-25 00:00:00 Completed [facility] Haemophilus influenzae type b vaccine, conjugate unspecified formulation 1998-01-25 00:00:00 Completed [facility] MMR 1998-01-25 00:00:00 Completed [facility] Poliovirus, Live, Oral, Trivalent 1998-01-25 00:00:00 Completed [facility] DTaP, Unspecified Formulation 1998-01-25 00:00:00 Completed [facility] Hep B, Adol or Pedi Dosage 1998-01-25 00:00:00 Completed [facility] Haemophilus influenzae type b vaccine, conjugate unspecified formulation 1998-01-25 00:00:00 Completed [facility] MMR 1998-01-25 00:00:00 Completed [facility] Poliovirus, Live, Oral, Trivalent 1998-01-25 00:00:00 Completed [facility] DTaP, Unspecified Formulation 1998-01-25 00:00:00 Completed [facility] Hep B, Adol or Pedi Dosage 1998-01-25 00:00:00 Completed [facility] Haemophilus influenzae type b vaccine, conjugate unspecified formulation 1998-01-25 00:00:00 Completed [facility] MMR 1998-01-25 00:00:00 Completed [facility] Poliovirus, Live, Oral, Trivalent 1998-01-25 00:00:00 Completed [facility] DTaP, Unspecified Formulation 1998-01-25 00:00:00 Completed [facility] Hep B, Adol or Pedi Dosage 1998-01-25 00:00:00 Completed [facility] Haemophilus influenzae type b vaccine, conjugate unspecified formulation 1998-01-25 00:00:00 Completed [facility] MMR 1998-01-25 00:00:00 Completed [facility] Poliovirus, Live, Oral, Trivalent 1998-01-25 00:00:00 Completed [facility] DTaP, Unspecified Formulation 1998-01-25 00:00:00 Completed [facility] Hep B, Adol or Pedi Dosage 1998-01-25 00:00:00 Completed [facility] Haemophilus influenzae type b vaccine, conjugate unspecified formulation 1998-01-25 00:00:00 Completed [facility] MMR 1998-01-25 00:00:00 Completed [facility] Poliovirus, Live, Oral, Trivalent 1998-01-25 00:00:00 Completed [facility] DTaP, Unspecified Formulation 1998-01-25 00:00:00 Completed [facility] Hep B, Adol or Pedi Dosage 1998-01-25 00:00:00 Completed [facility] Haemophilus influenzae type b vaccine, conjugate unspecified formulation 1998-01-25 00:00:00 Completed [facility] MMR 1998-01-25 00:00:00 Completed [facility] Poliovirus, Live, Oral, Trivalent 1998-01-25 00:00:00 Completed [facility] DTaP, Unspecified Formulation 1998-01-25 00:00:00 Completed [facility] Hep B, Adol or Pedi Dosage 1998-01-25 00:00:00 Completed [facility] Haemophilus influenzae type b vaccine, conjugate unspecified formulation 1998-01-25 00:00:00 Completed [facility] MMR 1998-01-25 00:00:00 Completed [facility] Poliovirus, Live, Oral, Trivalent 1998-01-25 00:00:00 Completed [facility] DTaP, Unspecified Formulation 1998-01-25 00:00:00 Completed [facility] Hep B, Adol or Pedi Dosage 1998-01-25 00:00:00 Completed [facility] Haemophilus influenzae type b vaccine, conjugate unspecified formulation 1998-01-25 00:00:00 Completed [facility] MMR 1998-01-25 00:00:00 Completed [facility] Poliovirus, Live, Oral, Trivalent 1998-01-25 00:00:00 Completed [facility] DTaP, Unspecified Formulation 1998-01-25 00:00:00 Completed [facility] Hep B, Adol or Pedi Dosage 1998-01-25 00:00:00 Completed [facility] Haemophilus influenzae type b vaccine, conjugate unspecified formulation 1998-01-25 00:00:00 Completed [facility] MMR 1998-01-25 00:00:00 Completed [facility] Poliovirus, Live, Oral, Trivalent 1998-01-25 00:00:00 Completed [facility] DTaP, Unspecified Formulation 1998-01-25 00:00:00 Completed [facility] Hep B, Adol or Pedi Dosage 1998-01-25 00:00:00 Completed [facility] Haemophilus influenzae type b vaccine, conjugate unspecified formulation 1998-01-25 00:00:00 Completed [facility] MMR 1998-01-25 00:00:00 Completed [facility] Poliovirus, Live, Oral, Trivalent 1998-01-25 00:00:00 Completed [facility] DTaP, Unspecified Formulation 1998-01-25 00:00:00 Completed [facility] Hep B, Adol or Pedi Dosage 1998-01-25 00:00:00 Completed [facility] Haemophilus influenzae type b vaccine, conjugate unspecified formulation 1998-01-25 00:00:00 Completed [facility] MMR 1998-01-25 00:00:00 Completed [facility] Poliovirus, Live, Oral, Trivalent 1998-01-25 00:00:00 Completed [facility] DTaP, Unspecified Formulation 1998-01-25 00:00:00 Completed [facility] Hep B, Adol or Pedi Dosage 1998-01-25 00:00:00 Completed [facility] Haemophilus influenzae type b vaccine, conjugate unspecified formulation 1998-01-25 00:00:00 Completed [facility] MMR 1998-01-25 00:00:00 Completed [facility] Poliovirus, Live, Oral, Trivalent 1998-01-25 00:00:00 Completed [facility] DTaP, Unspecified Formulation 1998-01-25 00:00:00 Completed [facility] Hep B, Adol or Pedi Dosage 1998-01-25 00:00:00 Completed [facility] Haemophilus influenzae type b vaccine, conjugate unspecified formulation 1998-01-25 00:00:00 Completed [facility] MMR 1998-01-25 00:00:00 Completed [facility] Poliovirus, Live, Oral, Trivalent 1998-01-25 00:00:00 Completed [facility] DTaP, Unspecified Formulation 1998-01-25 00:00:00 Completed [facility] Hep B, Adol or Pedi Dosage 1998-01-25 00:00:00 Completed [facility] MMR 1996-01-27 00:00:00 Completed [facility] MMR 1996-01-27 00:00:00 Completed [facility] MMR 1996-01-27 00:00:00 Completed [facility] MMR 1996-01-27 00:00:00 Completed [facility] MMR 1996-01-27 00:00:00 Completed [facility] MMR 1996-01-27 00:00:00 Completed [facility] MMR 1996-01-27 00:00:00 Completed [facility] MMR 1996-01-27 00:00:00 Completed [facility] MMR 1996-01-27 00:00:00 Completed [facility] MMR 1996-01-27 00:00:00 Completed [facility] MMR 1996-01-27 00:00:00 Completed [facility] MMR 1996-01-27 00:00:00 Completed [facility] MMR 1996-01-27 00:00:00 Completed [facility] MMR 1996-01-27 00:00:00 Completed [facility] MMR 1996-01-27 00:00:00 Completed [facility] MMR 1996-01-27 00:00:00 Completed [facility] MMR 1996-01-27 00:00:00 Completed [facility] MMR 1996-01-27 00:00:00 Completed [facility] MMR 1996-01-27 00:00:00 Completed [facility] MMR 1996-01-27 00:00:00 Completed [facility] MMR 1996-01-27 00:00:00 Completed [facility] MMR 1996-01-27 00:00:00 Completed [facility] MMR 1996-01-27 00:00:00 Completed [facility] MMR 1996-01-27 00:00:00 Completed [facility] MMR 1996-01-27 00:00:00 Completed [facility] MMR 1996-01-27 00:00:00 Completed [facility] MMR 1996-01-27 00:00:00 Completed [facility] MMR 1996-01-27 00:00:00 Completed [facility] MMR 1995-11-13 00:00:00 Completed [facility] DPT/HIB 1995-11-13 00:00:00 Completed [facility] MMR 1995-11-13 00:00:00 Completed [facility] DPT/HIB 1995-11-13 00:00:00 Completed [facility] MMR 1995-11-13 00:00:00 Completed [facility] DPT/HIB 1995-11-13 00:00:00 Completed [facility] MMR 1995-11-13 00:00:00 Completed [facility] DPT/HIB 1995-11-13 00:00:00 Completed [facility] MMR 1995-11-13 00:00:00 Completed [facility] DPT/HIB 1995-11-13 00:00:00 Completed [facility] MMR 1995-11-13 00:00:00 Completed [facility] DPT/HIB 1995-11-13 00:00:00 Completed [facility] MMR 1995-11-13 00:00:00 Completed [facility] DPT/HIB 1995-11-13 00:00:00 Completed [facility] MMR 1995-11-13 00:00:00 Completed [facility] DPT/HIB 1995-11-13 00:00:00 Completed [facility] MMR 1995-11-13 00:00:00 Completed [facility] DPT/HIB 1995-11-13 00:00:00 Completed [facility] MMR 1995-11-13 00:00:00 Completed [facility] DPT/HIB 1995-11-13 00:00:00 Completed [facility] MMR 1995-11-13 00:00:00 Completed [facility] DPT/HIB 1995-11-13 00:00:00 Completed [facility] [place] MMR 1995-11-13 00:00:00 Completed [facility] DPT/HIB 1995-11-13 00:00:00 Completed [facility] MMR 1995-11-13 00:00:00 Completed [facility] DPT/HIB 1995-11-13 00:00:00 Completed [facility] MMR 1995-11-13 00:00:00 Completed [facility] DPT/HIB 1995-11-13 00:00:00 Completed [facility] MMR 1995-11-13 00:00:00 Completed [facility] DPT/HIB 1995-11-13 00:00:00 Completed [facility] MMR 1995-11-13 00:00:00 Completed [facility] DPT/HIB 1995-11-13 00:00:00 Completed [facility] MMR 1995-11-13 00:00:00 Completed [facility] DPT/HIB 1995-11-13 00:00:00 Completed [facility] MMR 1995-11-13 00:00:00 Completed [facility] DPT/HIB 1995-11-13 00:00:00 Completed [facility] MMR 1995-11-13 00:00:00 Completed [facility] DPT/HIB 1995-11-13 00:00:00 Completed [facility] MMR 1995-11-13 00:00:00 Completed [facility] DPT/HIB 1995-11-13 00:00:00 Completed [facility] MMR 1995-11-13 00:00:00 Completed [facility] DPT/HIB 1995-11-13 00:00:00 Completed [facility] MMR 1995-11-13 00:00:00 Completed [facility] DPT/HIB 1995-11-13 00:00:00 Completed [facility] MMR 1995-11-13 00:00:00 Completed [facility] DPT/HIB 1995-11-13 00:00:00 Completed [facility] MMR 1995-11-13 00:00:00 Completed [facility] DPT/HIB 1995-11-13 00:00:00 Completed [facility] MMR 1995-11-13 00:00:00 Completed [facility] DPT/HIB 1995-11-13 00:00:00 Completed [facility] MMR 1995-11-13 00:00:00 Completed [facility] DPT/HIB 1995-11-13 00:00:00 Completed [facility] MMR 1995-11-13 00:00:00 Completed [facility] DPT/HIB 1995-11-13 00:00:00 Completed [facility] MMR 1995-11-13 00:00:00 Completed [facility] DPT/HIB 1995-11-13 00:00:00 Completed [facility] DTaP, Unspecified Formulation Unknown Completed [facility] DTaP, Unspecified Formulation Unknown Completed [facility] DTaP, Unspecified Formulation Unknown Completed [facility] DTaP, Unspecified Formulation Unknown Completed [facility] DPT/HIB Unknown Completed [facility] Hepatitis A Adult [facility] Hep B, Adol or Pedi Dosage Unknown Completed [facility] Hep B, Adol or Pedi Dosage Unknown Completed [facility] Hep B, Adol or Pedi Dosage Unknown Completed [facility] Haemophilus influenzae type b vaccine, conjugate unspecified formulation Unknown Completed [facility] Haemophilus influenzae type b vaccine, conjugate unspecified formulation Unknown Completed [facility] Meningococcal Polysaccharide (groups A, C, Y and W-135) conjugate vaccine (MCV4P) Unknown Completed [facility] MMR Unknown Completed [facility] MMR Unknown Completed [facility] MMR Unknown Completed [facility] MMR Unknown Completed [facility] Poliovirus, Live, Oral, Trivalent Unknown Completed [facility] Poliovirus, Live, Oral, Trivalent Unknown Completed [facility] Poliovirus, Live, Oral, Trivalent Unknown Completed [facility] TDAP Unknown Completed [facility] Varicella (varivax)(chicken pox) Unknown Completed [facility] DTaP, Unspecified Formulation Unknown Completed [facility] DTaP, Unspecified Formulation Unknown Completed [facility] DTaP, Unspecified Formulation Unknown Completed [facility] DTaP, Unspecified Formulation Unknown Completed [facility] DPT/HIB Unknown Completed [facility] Hep B, Adol or Pedi Dosage Unknown Completed [facility] Hep B, Adol or Pedi Dosage Unknown Completed [facility] Hep B, Adol or Pedi Dosage Unknown Completed [facility] Haemophilus influenzae type b vaccine, conjugate unspecified formulation Unknown Completed [facility] Haemophilus influenzae type b vaccine, conjugate unspecified formulation Unknown Completed [facility] Meningococcal Polysaccharide (groups A, C, Y and W-135) conjugate vaccine (MCV4P) Unknown Completed [facility] MMR Unknown Completed [facility] MMR Unknown Completed [facility] MMR Unknown Completed [facility] MMR Unknown Completed [facility] Poliovirus, Live, Oral, Trivalent Unknown Completed [facility] Poliovirus, Live, Oral, Trivalent Unknown Completed [facility] Poliovirus, Live, Oral, Trivalent Unknown Completed [facility] TDAP Unknown Completed [facility] Varicella (varivax)(chicken pox) Unknown Completed [facility] DTaP, Unspecified Formulation Unknown Completed [facility] DTaP, Unspecified Formulation Unknown Completed [facility] DTaP, Unspecified Formulation Unknown Completed [facility] DTaP, Unspecified Formulation Unknown Completed [facility] DPT/HIB Unknown Completed [facility] Hepatitis A Adult Unknown Completed [facility] HEPATITIS A Unknown Completed [facility] Hep B, Adol or Pedi Dosage Unknown Completed [facility] Hep B, Adol or Pedi Dosage Unknown Completed [facility] Hep B, Adol or Pedi Dosage Unknown Completed [facility] Haemophilus influenzae type b vaccine, conjugate unspecified formulation Unknown Completed [facility] Haemophilus influenzae type b vaccine, conjugate unspecified formulation Unknown Completed [facility] Meningococcal Polysaccharide (groups A, C, Y and W-135) conjugate vaccine (MCV4P) Unknown Completed [facility] MMR Unknown Completed [facility] MMR Unknown Completed [facility] MMR Unknown Completed [facility] MMR Unknown Completed [facility] Poliovirus, Live, Oral, Trivalent Unknown Completed [facility] Poliovirus, Live, Oral, Trivalent Unknown Completed [facility] Poliovirus, Live, Oral, Trivalent Unknown Completed [facility] TDAP Unknown Completed [facility] Varicella (varivax)(chicken pox) Unknown Completed [facility] DTaP, Unspecified Formulation Unknown Completed [facility] DTaP, Unspecified Formulation Unknown Completed [facility] DTaP, Unspecified Formulation Unknown Completed [facility] DTaP, Unspecified Formulation Unknown Completed [facility] DPT/HIB Unknown Completed [facility]atitis A Adult [facility] Hep B, Adol or Pedi Dosage Unknown Completed [facility] Hep B, Adol or Pedi Dosage Unknown Completed [facility] Hep B, Adol or Pedi Dosage Unknown Completed [facility] Haemophilus influenzae type b vaccine, conjugate unspecified formulation Unknown Completed [facility] Haemophilus influenzae type b vaccine, conjugate unspecified formulation Unknown Completed [facility] Meningococcal Polysaccharide (groups A, C, Y and W-135) conjugate vaccine (MCV4P) Unknown Completed [facility] MMR Unknown Completed [facility] MMR Unknown Completed [facility] MMR Unknown Completed [facility] MMR Unknown Completed [facility] Poliovirus, Live, Oral, Trivalent Unknown Completed [facility] Poliovirus, Live, Oral, Trivalent Unknown Completed [facility] Poliovirus, Live, Oral, Trivalent Unknown Completed [facility] TDAP Unknown Completed [facility] Varicella (varivax)(chicken pox) Unknown Completed [facility] DTaP, Unspecified Formulation Unknown Completed [facility] DTaP, Unspecified Formulation Unknown Completed [facility] DTaP, Unspecified Formulation Unknown Completed [facility] DTaP, Unspecified Formulation Unknown Completed [facility] DPT/HIB Unknown Completed [facility] Hepatitis A Adult [facility] Hep B, Adol or Pedi Dosage Unknown Completed [facility] Hep B, Adol or Pedi Dosage Unknown Completed [facility] Hep B, Adol or Pedi Dosage Unknown Completed [facility] Haemophilus influenzae type b vaccine, conjugate unspecified formulation Unknown Completed [facility] Haemophilus influenzae type b vaccine, conjugate unspecified formulation Unknown Completed [facility] Meningococcal Polysaccharide (groups A, C, Y and W-135) conjugate vaccine (MCV4P) Unknown Completed [facility] MMR Unknown Completed [facility] MMR Unknown Completed [facility] MMR Unknown Completed [facility] MMR Unknown Completed [facility] Poliovirus, Live, Oral, Trivalent Unknown Completed [facility] Poliovirus, Live, Oral, Trivalent Unknown Completed [facility] Poliovirus, Live, Oral, Trivalent Unknown Completed [facility] TDAP Unknown Completed [facility] Varicella (varivax)(chicken pox) Unknown Completed [facility] DTaP, Unspecified Formulation Unknown Completed [facility] DTaP, Unspecified Formulation Unknown Completed [facility] DTaP, Unspecified Formulation Unknown Completed [facility] DTaP, Unspecified Formulation Unknown Completed [facility] DPT/HIB Unknown Completed [facility] Hepatitis A Adult Unknown [facility] Com[facility] Hep B, Adol or Pedi Dosage Unknown Completed [facility] Hep B, Adol or Pedi Dosage Unknown Completed [facility] Hep B, Adol or Pedi Dosage Unknown Completed [facility] Haemophilus influenzae type b vaccine, conjugate unspecified formulation Unknown Completed [facility] Haemophilus influenzae type b vaccine, conjugate unspecified formulation Unknown Completed [facility] Meningococcal Polysaccharide (groups A, C, Y and W-135) conjugate vaccine (MCV4P) Unknown Completed [facility] MMR Unknown Completed [facility] MMR Unknown Completed [facility] MMR Unknown Completed [facility] MMR Unknown Completed [facility] Poliovirus, Live, Oral, Trivalent Unknown Completed [facility] Poliovirus, Live, Oral, Trivalent Unknown Completed [facility] Poliovirus, Live, Oral, Trivalent Unknown Completed [facility] TDAP Unknown Completed [facility] Varicella (varivax)(chicken pox) Unknown Completed [facility] DTaP, Unspecified Formulation Unknown Completed [facility] DTaP, Unspecified Formulation Unknown Completed [facility] DTaP, Unspecified Formulation Unknown Completed [facility] DTaP, Unspecified Formulation Unknown Completed [facility] DPT/HIB Unknown Completed [facility]atitis A Adult [facility] Hep B, Adol or Pedi Dosage Unknown Completed [facility] Hep B, Adol or Pedi Dosage Unknown Completed [facility] Hep B, Adol or Pedi Dosage Unknown Completed [facility] Haemophilus influenzae type b vaccine, conjugate unspecified formulation Unknown Completed [facility] Haemophilus influenzae type b vaccine, conjugate unspecified formulation Unknown Completed [facility] Meningococcal Polysaccharide (groups A, C, Y and W-135) conjugate vaccine (MCV4P) Unknown Completed [facility] MMR Unknown Completed [facility] MMR Unknown Completed [facility] MMR Unknown Completed [facility] MMR Unknown Completed [facility] Poliovirus, Live, Oral, Trivalent Unknown Completed [facility] Poliovirus, Live, Oral, Trivalent Unknown Completed [facility] Poliovirus, Live, Oral, Trivalent Unknown Completed [facility] TDAP Unknown Completed [facility] Varicella (varivax)(chicken pox) Unknown Completed [facility] DTaP, Unspecified Formulation Unknown Completed [facility] DTaP, Unspecified Formulation Unknown Completed [facility] DTaP, Unspecified Formulation Unknown Completed [facility] DTaP, Unspecified Formulation Unknown Completed [facility] DPT/HIB Unknown Completed [facility] Hepatitis A Adult Unknown Completed [facility] HEPATITIS A Unknown Completed [facility] Hep B, Adol or Pedi Dosage Unknown Completed [facility] Hep B, Adol or Pedi Dosage Unknown Completed [facility] Hep B, Adol or Pedi Dosage Unknown Completed [facility] Haemophilus influenzae type b vaccine, conjugate unspecified formulation Unknown Completed [facility] Haemophilus influenzae type b vaccine, conjugate unspecified formulation Unknown Completed [facility] Meningococcal Polysaccharide (groups A, C, Y and W-135) conjugate vaccine (MCV4P) Unknown Completed [facility] MMR Unknown Completed [facility] MMR Unknown Completed [facility] MMR Unknown Completed [facility] MMR Unknown Completed [facility] Poliovirus, Live, Oral, Trivalent Unknown Completed [facility] Poliovirus, Live, Oral, Trivalent Unknown Completed [facility] Poliovirus, Live, Oral, Trivalent Unknown Completed [facility] TDAP Unknown Completed [facility] Varicella (varivax)(chicken pox) Unknown Completed [facility] DTaP, Unspecified Formulation Unknown Completed [facility] DTaP, Unspecified Formulation Unknown Completed [facility] DTaP, Unspecified Formulation Unknown Completed [facility] DTaP, Unspecified Formulation Unknown Completed [facility] DPT/HIB Unknown Completed [facility] Hepatitis A Adult [facility] Com[facility] Hep B, Adol or Pedi Dosage Unknown Completed [facility] Hep B, Adol or Pedi Dosage Unknown Completed [facility] Hep B, Adol or Pedi Dosage Unknown Completed [facility] Haemophilus influenzae type b vaccine, conjugate unspecified formulation Unknown Completed [facility] Haemophilus influenzae type b vaccine, conjugate unspecified formulation Unknown Completed [facility] Meningococcal Polysaccharide (groups A, C, Y and W-135) conjugate vaccine (MCV4P) Unknown Completed [facility] MMR Unknown Completed [facility] MMR Unknown Completed [facility] MMR Unknown Completed [facility] MMR Unknown Completed [facility] Poliovirus, Live, Oral, Trivalent Unknown Completed [facility] Poliovirus, Live, Oral, Trivalent Unknown Completed [facility] Poliovirus, Live, Oral, Trivalent Unknown Completed [facility] TDAP Unknown Completed [facility] Varicella (varivax)(chicken pox) Unknown Completed [facility] DTaP, Unspecified Formulation Unknown Completed [facility] DTaP, Unspecified Formulation Unknown Completed [facility] DTaP, Unspecified Formulation Unknown Completed [facility] DTaP, Unspecified Formulation Unknown Completed [facility] DPT/HIB Unknown Completed [facility] Hepatitis A Adult [facility] Com[facility] Hep B, Adol or Pedi Dosage Unknown Completed [facility] Hep B, Adol or Pedi Dosage Unknown Completed [facility] Hep B, Adol or Pedi Dosage Unknown Completed [facility] Haemophilus influenzae type b vaccine, conjugate unspecified formulation Unknown Completed [facility] Haemophilus influenzae type b vaccine, conjugate unspecified formulation Unknown Completed [facility] Meningococcal Polysaccharide (groups A, C, Y and W-135) conjugate vaccine (MCV4P) Unknown Completed [facility] MMR Unknown Completed [facility] MMR Unknown Completed [facility] MMR Unknown Completed [facility] MMR Unknown Completed [facility] Poliovirus, Live, Oral, Trivalent Unknown Completed [facility] Poliovirus, Live, Oral, Trivalent Unknown Completed [facility] Poliovirus, Live, Oral, Trivalent Unknown Completed [facility] TDAP Unknown Completed [facility] Varicella (varivax)(chicken pox) Unknown Completed [facility] DTaP, Unspecified Formulation Unknown Completed [facility] DTaP, Unspecified Formulation Unknown Completed [facility] DTaP, Unspecified Formulation Unknown Completed [facility] DTaP, Unspecified Formulation Unknown Completed [facility] DPT/HIB Unknown Completed [facility] Hepatitis A Adult Unknown Completed [facility] HEPATITIS A Unknown Completed [facility] Hep B, Adol or Pedi Dosage Unknown Completed [facility] Hep B, Adol or Pedi Dosage Unknown Completed [facility] Hep B, Adol or Pedi Dosage Unknown Completed [facility] Haemophilus influenzae type b vaccine, conjugate unspecified formulation Unknown Completed [facility] Haemophilus influenzae type b vaccine, conjugate unspecified formulation Unknown Completed [facility] Meningococcal Polysaccharide (groups A, C, Y and W-135) conjugate vaccine (MCV4P) Unknown Completed [facility] MMR Unknown Completed [facility] MMR Unknown Completed [facility] MMR Unknown Completed [facility] MMR Unknown Completed [facility] Poliovirus, Live, Oral, Trivalent Unknown Completed [facility] Poliovirus, Live, Oral, Trivalent Unknown Completed [facility] Poliovirus, Live, Oral, Trivalent Unknown Completed [facility] TDAP Unknown Completed [facility] Varicella (varivax)(chicken pox) Unknown Completed [facility] DTaP, Unspecified Formulation Unknown Completed [facility] DTaP, Unspecified Formulation Unknown Completed [facility] DTaP, Unspecified Formulation Unknown Completed [facility] DTaP, Unspecified Formulation Unknown Completed [facility] DPT/HIB Unknown Completed [facility] Hepatitis A Adult Unknown [facility] Com[facility] Hep B, Adol or Pedi Dosage Unknown Completed [facility] Hep B, Adol or Pedi Dosage Unknown Completed [facility] Hep B, Adol or Pedi Dosage Unknown Completed [facility] Haemophilus influenzae type b vaccine, conjugate unspecified formulation Unknown Completed [facility] Haemophilus influenzae type b vaccine, conjugate unspecified formulation Unknown Completed [facility] Meningococcal Polysaccharide (groups A, C, Y and W-135) conjugate vaccine (MCV4P) Unknown Completed [facility] MMR Unknown Completed [facility] MMR Unknown Completed [facility] MMR Unknown Completed [facility] MMR Unknown Completed [facility] Poliovirus, Live, Oral, Trivalent Unknown Completed [facility] Poliovirus, Live, Oral, Trivalent Unknown Completed [facility] Poliovirus, Live, Oral, Trivalent Unknown Completed [facility] TDAP Unknown Completed [facility] Varicella (varivax)(chicken pox) Unknown Completed [facility] DTaP, Unspecified Formulation Unknown Completed [facility] DTaP, Unspecified Formulation Unknown Completed [facility] DTaP, Unspecified Formulation Unknown Completed [facility] DTaP, Unspecified Formulation Unknown Completed [facility] DPT/HIB Unknown Completed [facility] Hepatitis A Adult Unknown Completed Un [facility] HEPATITIS A Unknown Completed [facility] Hep B, Adol or Pedi Dosage Unknown Completed [facility] Hep B, Adol or Pedi Dosage Unknown Completed [facility] Hep B, Adol or Pedi Dosage Unknown Completed [facility] Haemophilus influenzae type b vaccine, conjugate unspecified formulation Unknown Completed [facility] Haemophilus influenzae type b vaccine, conjugate unspecified formulation Unknown Completed [facility] Meningococcal Polysaccharide (groups A, C, Y and W-135) conjugate vaccine (MCV4P) Unknown Completed [facility] MMR Unknown Completed [facility] MMR Unknown Completed [facility] MMR Unknown Completed [facility] MMR Unknown Completed [facility] Poliovirus, Live, Oral, Trivalent Unknown Completed [facility] Poliovirus, Live, Oral, Trivalent Unknown Completed [facility] Poliovirus, Live, Oral, Trivalent Unknown Completed [facility] TDAP Unknown Completed [facility] Varicella (varivax)(chicken pox) Unknown Completed [facility] DTaP, Unspecified Formulation Unknown Completed [facility] DTaP, Unspecified Formulation Unknown Completed [facility] DTaP, Unspecified Formulation Unknown Completed [facility] DTaP, Unspecified Formulation Unknown Completed [facility] DPT/HIB Unknown Completed [facility]atitis A Adult [facility] Hep B, Adol or Pedi Dosage Unknown Completed [facility] Hep B, Adol or Pedi Dosage Unknown Completed [facility] Hep B, Adol or Pedi Dosage Unknown Completed [facility] Haemophilus influenzae type b vaccine, conjugate unspecified formulation Unknown Completed [facility] Haemophilus influenzae type b vaccine, conjugate unspecified formulation Unknown Completed [facility] Meningococcal Polysaccharide (groups A, C, Y and W-135) conjugate vaccine (MCV4P) Unknown Completed [facility] MMR Unknown Completed [facility] MMR Unknown Completed [facility] MMR Unknown Completed [facility] MMR Unknown Completed [facility] Poliovirus, Live, Oral, Trivalent Unknown Completed [facility] Poliovirus, Live, Oral, Trivalent Unknown Completed [facility] Poliovirus, Live, Oral, Trivalent Unknown Completed [facility] TDAP Unknown Completed [facility] Varicella (varivax)(chicken pox) Unknown Completed [facility] DTaP, Unspecified Formulation Unknown Completed [facility] DTaP, Unspecified Formulation Unknown Completed [facility] DTaP, Unspecified Formulation Unknown Completed [facility] DTaP, Unspecified Formulation Unknown Completed [facility] DPT/HIB Unknown Completed [facility] Hepatitis A Adult [facility] Hep B, Adol or Pedi Dosage Unknown Completed [facility] Hep B, Adol or Pedi Dosage Unknown Completed [facility] Hep B, Adol or Pedi Dosage Unknown Completed [facility] Haemophilus influenzae type b vaccine, conjugate unspecified formulation Unknown Completed [facility] Haemophilus influenzae type b vaccine, conjugate unspecified formulation Unknown Completed [facility] Meningococcal Polysaccharide (groups A, C, Y and W-135) conjugate vaccine (MCV4P) Unknown Completed [facility] MMR Unknown Completed [facility] MMR Unknown Completed [facility] MMR Unknown Completed [facility] MMR Unknown Completed [facility] Poliovirus, Live, Oral, Trivalent Unknown Completed [facility] Poliovirus, Live, Oral, Trivalent Unknown Completed [facility] Poliovirus, Live, Oral, Trivalent Unknown Completed [facility] TDAP Unknown Completed [facility] Varicella (varivax)(chicken pox) Unknown Completed [facility] DTaP, Unspecified Formulation Unknown Completed [facility] DTaP, Unspecified Formulation Unknown Completed [facility] DTaP, Unspecified Formulation Unknown Completed [facility] DTaP, Unspecified Formulation Unknown Completed [facility] DPT/HIB Unknown Completed [facility] Hepatitis A Adult Unknown Completed [facility] HEPATITIS A Unknown Completed [facility] Hep B, Adol or Pedi Dosage Unknown Completed [facility] Hep B, Adol or Pedi Dosage Unknown Completed [facility] Hep B, Adol or Pedi Dosage Unknown Completed [facility] Haemophilus influenzae type b vaccine, conjugate unspecified formulation Unknown Completed [facility] Haemophilus influenzae type b vaccine, conjugate unspecified formulation Unknown Completed [facility] Meningococcal Polysaccharide (groups A, C, Y and W-135) conjugate vaccine (MCV4P) Unknown Completed [facility] MMR Unknown Completed [facility] MMR Unknown Completed [facility] MMR Unknown Completed [facility] MMR Unknown Completed [facility] Poliovirus, Live, Oral, Trivalent Unknown Completed [facility] Poliovirus, Live, Oral, Trivalent Unknown Completed [facility] Poliovirus, Live, Oral, Trivalent Unknown Completed [facility] TDAP Unknown Completed [facility] Varicella (varivax)(chicken pox) Unknown Completed [facility] DTaP, Unspecified Formulation Unknown Completed [facility] DTaP, Unspecified Formulation Unknown Completed [facility] DTaP, Unspecified Formulation Unknown Completed [facility] DTaP, Unspecified Formulation Unknown Completed [facility] DPT/HIB Unknown Completed [facility] Hepatitis A Adult [facility] Hep B, Adol or Pedi Dosage Unknown Completed [facility] Hep B, Adol or Pedi Dosage Unknown Completed [facility] Hep B, Adol or Pedi Dosage Unknown Completed [facility] Haemophilus influenzae type b vaccine, conjugate unspecified formulation Unknown Completed [facility] Haemophilus influenzae type b vaccine, conjugate unspecified formulation Unknown Completed [facility] Meningococcal Polysaccharide (groups A, C, Y and W-135) conjugate vaccine (MCV4P) Unknown Completed [facility] MMR Unknown Completed [facility] MMR Unknown Completed [facility] MMR Unknown Completed [facility] MMR Unknown Completed [facility] Poliovirus, Live, Oral, Trivalent Unknown Completed [facility] Poliovirus, Live, Oral, Trivalent Unknown Completed [facility] Poliovirus, Live, Oral, Trivalent Unknown Completed [facility] TDAP Unknown Completed [facility] Varicella (varivax)(chicken pox) Unknown Completed [facility] DTaP, Unspecified Formulation Unknown Completed [facility] DTaP, Unspecified Formulation Unknown Completed [facility] DTaP, Unspecified Formulation Unknown Completed [facility] DTaP, Unspecified Formulation Unknown Completed [facility] DPT/HIB Unknown Completed [facility] Hepatitis A Adult [facility] Completed [facility] Hep B, Adol or Pedi Dosage Unknown Completed [facility] Hep B, Adol or Pedi Dosage Unknown Completed [facility] Hep B, Adol or Pedi Dosage Unknown Completed [facility] Haemophilus influenzae type b vaccine, conjugate unspecified formulation Unknown Completed [facility] Haemophilus influenzae type b vaccine, conjugate unspecified formulation Unknown Completed [facility] Meningococcal Polysaccharide (groups A, C, Y and W-135) conjugate vaccine (MCV4P) Unknown Completed [facility] MMR Unknown Completed [facility] MMR Unknown Completed [facility] MMR Unknown Completed [facility] MMR Unknown Completed [facility] Poliovirus, Live, Oral, Trivalent Unknown Completed [facility] Poliovirus, Live, Oral, Trivalent Unknown Completed [facility] Poliovirus, Live, Oral, Trivalent Unknown Completed [facility] TDAP Unknown Completed [facility] Varicella (varivax)(chicken pox) Unknown Completed [facility] DTaP, Unspecified Formulation Unknown Completed [facility] DTaP, Unspecified Formulation Unknown Completed [facility] DTaP, Unspecified Formulation Unknown Completed [facility] DTaP, Unspecified Formulation Unknown Completed [facility] DPT/HIB Unknown Completed [facility] Hepatitis A Adult Unknown Completed Un [facility] HEPATITIS A Unknown Completed [facility] Hep B, Adol or Pedi Dosage Unknown Completed [facility] Hep B, Adol or Pedi Dosage Unknown Completed [facility] Hep B, Adol or Pedi Dosage Unknown Completed [facility] Haemophilus influenzae type b vaccine, conjugate unspecified formulation Unknown Completed [facility] Haemophilus influenzae type b vaccine, conjugate unspecified formulation Unknown Completed [facility] Meningococcal Polysaccharide (groups A, C, Y and W-135) conjugate vaccine (MCV4P) Unknown Completed [facility] MMR Unknown Completed [facility] MMR Unknown Completed [facility] MMR Unknown Completed [facility] MMR Unknown Completed [facility] Poliovirus, Live, Oral, Trivalent Unknown Completed [facility] Poliovirus, Live, Oral, Trivalent Unknown Completed [facility] Poliovirus, Live, Oral, Trivalent Unknown Completed [facility] TDAP Unknown Completed [facility] Varicella (varivax)(chicken pox) Unknown Completed [facility] DTaP, Unspecified Formulation Unknown Completed [facility] DTaP, Unspecified Formulation Unknown Completed [facility] DTaP, Unspecified Formulation Unknown Completed [facility] DTaP, Unspecified Formulation Unknown Completed [facility] DPT/HIB Unknown Completed [facility] Hepatitis A Adult [facility], Adol or Pedi Dosage Unknown Completed [facility] Hep B, Adol or Pedi Dosage Unknown Completed [facility] Hep B, Adol or Pedi Dosage Unknown Completed [facility] Haemophilus influenzae type b vaccine, conjugate unspecified formulation Unknown Completed [facility] Haemophilus influenzae type b vaccine, conjugate unspecified formulation Unknown Completed [facility] Meningococcal Polysaccharide (groups A, C, Y and W-135) conjugate vaccine (MCV4P) Unknown Completed [facility] MMR Unknown Completed [facility] MMR Unknown Completed [facility] MMR Unknown Completed [facility] MMR Unknown Completed [facility] Poliovirus, Live, Oral, Trivalent Unknown Completed [facility] Poliovirus, Live, Oral, Trivalent Unknown Completed [facility] Poliovirus, Live, Oral, Trivalent Unknown Completed [facility] TDAP Unknown Completed [facility] Varicella (varivax)(chicken pox) Unknown Completed [facility] DTaP, Unspecified Formulation Unknown Completed [facility] DTaP, Unspecified Formulation Unknown Completed [facility] DTaP, Unspecified Formulation Unknown Completed [facility] DTaP, Unspecified Formulation Unknown Completed [facility] DPT/HIB Unknown Completed [facility] Hepatitis A Adult Unknown Completed [facility] HEPATITIS A Unknown Completed [facility] Hep B, Adol or Pedi Dosage Unknown Completed [facility] Hep B, Adol or Pedi Dosage Unknown Completed [facility] Hep B, Adol or Pedi Dosage Unknown Completed [facility] Haemophilus influenzae type b vaccine, conjugate unspecified formulation Unknown Completed [facility] Haemophilus influenzae type b vaccine, conjugate unspecified formulation Unknown Completed [facility] Meningococcal Polysaccharide (groups A, C, Y and W-135) conjugate vaccine (MCV4P) Unknown Completed [facility] MMR Unknown Completed [facility] MMR Unknown Completed [facility] MMR Unknown Completed [facility] MMR Unknown Completed [facility] Poliovirus, Live, Oral, Trivalent Unknown Completed [facility] Poliovirus, Live, Oral, Trivalent Unknown Completed [facility] Poliovirus, Live, Oral, Trivalent Unknown Completed [facility] TDAP Unknown Completed [facility] Varicella (varivax)(chicken pox) Unknown Completed [facility] DTaP, Unspecified Formulation Unknown Completed [facility] DTaP, Unspecified Formulation Unknown Completed [facility] DTaP, Unspecified Formulation Unknown Completed [facility] DTaP, Unspecified Formulation Unknown Completed [facility] DPT/HIB Unknown Completed [facility] Hepatitis A Adult [facility] Completed [facility] Hep B, Adol or Pedi Dosage Unknown Completed [facility] Hep B, Adol or Pedi Dosage Unknown Completed [facility] Hep B, Adol or Pedi Dosage Unknown Completed [facility] Haemophilus influenzae type b vaccine, conjugate unspecified formulation Unknown Completed [facility] Haemophilus influenzae type b vaccine, conjugate unspecified formulation Unknown Completed [facility] Meningococcal Polysaccharide (groups A, C, Y and W-135) conjugate vaccine (MCV4P) Unknown Completed [facility] MMR Unknown Completed [facility] MMR Unknown Completed [facility] MMR Unknown Completed [facility] MMR Unknown Completed [facility] Poliovirus, Live, Oral, Trivalent Unknown Completed [facility] Poliovirus, Live, Oral, Trivalent Unknown Completed [facility] Poliovirus, Live, Oral, Trivalent Unknown Completed [facility] TDAP Unknown Completed [facility] Varicella (varivax)(chicken pox) Unknown Completed [facility] DTaP, Unspecified Formulation Unknown Completed [facility] DTaP, Unspecified Formulation Unknown Completed [facility] DTaP, Unspecified Formulation Unknown Completed [facility] DTaP, Unspecified Formulation Unknown Completed [facility] DPT/HIB Unknown Completed [facility] Hepatitis A Adult Unknown [facility] Completed [facility] Hep B, Adol or Pedi Dosage Unknown Completed [facility] Hep B, Adol or Pedi Dosage Unknown Completed [facility] Hep B, Adol or Pedi Dosage Unknown Completed [facility] Haemophilus influenzae type b vaccine, conjugate unspecified formulation Unknown Completed [facility] Haemophilus influenzae type b vaccine, conjugate unspecified formulation Unknown Completed [facility] Meningococcal Polysaccharide (groups A, C, Y and W-135) conjugate vaccine (MCV4P) Unknown Completed [facility] MMR Unknown Completed [facility] MMR Unknown Completed [facility] MMR Unknown Completed [facility] MMR Unknown Completed [facility] Poliovirus, Live, Oral, Trivalent Unknown Completed [facility] Poliovirus, Live, Oral, Trivalent Unknown Completed [facility] Poliovirus, Live, Oral, Trivalent Unknown Completed [facility] TDAP Unknown Completed [facility] Varicella (varivax)(chicken pox) Unknown Completed [facility] DTaP, Unspecified Formulation Unknown Completed [facility] DTaP, Unspecified Formulation Unknown Completed [facility] DTaP, Unspecified Formulation Unknown Completed [facility] DTaP, Unspecified Formulation Unknown Completed [facility] DPT/HIB Unknown Completed [facility] Hepatitis A Adult Unknown Completed [facility] HEPATITIS A Unknown Completed [facility] Hep B, Adol or Pedi Dosage Unknown Completed [facility] Hep B, Adol or Pedi Dosage Unknown Completed [facility] Hep B, Adol or Pedi Dosage Unknown Completed [facility] Haemophilus influenzae type b vaccine, conjugate unspecified formulation Unknown Completed [facility] Haemophilus influenzae type b vaccine, conjugate unspecified formulation Unknown Completed [facility] Meningococcal Polysaccharide (groups A, C, Y and W-135) conjugate vaccine (MCV4P) Unknown Completed [facility] MMR Unknown Completed [facility] MMR Unknown Completed [facility] MMR Unknown Completed [facility] MMR Unknown Completed [facility] Poliovirus, Live, Oral, Trivalent Unknown Completed [facility] Poliovirus, Live, Oral, Trivalent Unknown Completed [facility] Poliovirus, Live, Oral, Trivalent Unknown Completed [facility] TDAP Unknown Completed [facility] Varicella (varivax)(chicken pox) Unknown Completed [facility] DTaP, Unspecified Formulation Unknown Completed [facility] DTaP, Unspecified Formulation Unknown Completed [facility] DTaP, Unspecified Formulation Unknown Completed [facility] DTaP, Unspecified Formulation Unknown Completed [facility] DPT/HIB Unknown Completed [facility] Hepatitis A Adult Unknown [facility] Completed [facility] Hep B, Adol or Pedi Dosage Unknown Completed [facility] Hep B, Adol or Pedi Dosage Unknown Completed [facility] Hep B, Adol or Pedi Dosage Unknown Completed [facility] Haemophilus influenzae type b vaccine, conjugate unspecified formulation Unknown Completed [facility] Haemophilus influenzae type b vaccine, conjugate unspecified formulation Unknown Completed [facility] Meningococcal Polysaccharide (groups A, C, Y and W-135) conjugate vaccine (MCV4P) Unknown Completed [facility] MMR Unknown Completed [facility] MMR Unknown Completed [facility] MMR Unknown Completed [facility] MMR Unknown Completed [facility] Poliovirus, Live, Oral, Trivalent Unknown Completed [facility] Poliovirus, Live, Oral, Trivalent Unknown Completed [facility] Poliovirus, Live, Oral, Trivalent Unknown Completed [facility] TDAP Unknown Completed [facility] Varicella (varivax)(chicken pox) Unknown Completed [facility] DTaP, Unspecified Formulation Unknown Completed [facility] DTaP, Unspecified Formulation Unknown Completed [facility] DTaP, Unspecified Formulation Unknown Completed [facility] DTaP, Unspecified Formulation Unknown Completed [facility] DPT/HIB Unknown Completed [facility] Hepatitis A Adult Unknown [facility] Completed [facility] Hep B, Adol or Pedi Dosage Unknown Completed [facility] Hep B, Adol or Pedi Dosage Unknown Completed [facility] Hep B, Adol or Pedi Dosage Unknown Completed [facility] Haemophilus influenzae type b vaccine, conjugate unspecified formulation Unknown Completed [facility] Haemophilus influenzae type b vaccine, conjugate unspecified formulation Unknown Completed [facility] Meningococcal Polysaccharide (groups A, C, Y and W-135) conjugate vaccine (MCV4P) Unknown Completed [facility] MMR Unknown Completed [facility] MMR Unknown Completed [facility] MMR Unknown Completed [facility] MMR Unknown Completed [facility] Poliovirus, Live, Oral, Trivalent Unknown Completed [facility] Poliovirus, Live, Oral, Trivalent Unknown Completed [facility] Poliovirus, Live, Oral, Trivalent Unknown Completed [facility] TDAP Unknown Completed [facility] Varicella (varivax)(chicken pox) Unknown Completed [facility] DTaP, Unspecified Formulation Unknown Completed [facility] DTaP, Unspecified Formulation Unknown Completed [facility] DTaP, Unspecified Formulation Unknown Completed [facility] DTaP, Unspecified Formulation Unknown Completed [facility] DPT/HIB Unknown Completed [facility] Hepatitis A Adult Unknown [facility] Completed [facility] Hep B, Adol or Pedi Dosage Unknown Completed [facility] Hep B, Adol or Pedi Dosage Unknown Completed [facility] Hep B, Adol or Pedi Dosage Unknown Completed [facility] Haemophilus influenzae type b vaccine, conjugate unspecified formulation Unknown Completed [facility] Haemophilus influenzae type b vaccine, conjugate unspecified formulation Unknown Completed [facility] Meningococcal Polysaccharide (groups A, C, Y and W-135) conjugate vaccine (MCV4P) Unknown Completed [facility] MMR Unknown Completed [facility] MMR Unknown Completed [facility] MMR Unknown Completed [facility] MMR Unknown Completed [facility] Poliovirus, Live, Oral, Trivalent Unknown Completed [facility] Poliovirus, Live, Oral, Trivalent Unknown Completed [facility] Poliovirus, Live, Oral, Trivalent Unknown Completed [facility] TDAP Unknown Completed [facility] Varicella (varivax)(chicken pox) Unknown Completed [facility] DTaP, Unspecified Formulation Unknown Completed [facility] DTaP, Unspecified Formulation Unknown Completed [facility] DTaP, Unspecified Formulation Unknown Completed [facility] DTaP, Unspecified Formulation Unknown Completed [facility] DPT/HIB Unknown Completed [facility] Hepatitis A Adult [facility] Hep B, Adol or Pedi Dosage Unknown Completed [facility] Hep B, Adol or Pedi Dosage Unknown Completed [facility] Hep B, Adol or Pedi Dosage Unknown Completed [facility] Haemophilus influenzae type b vaccine, conjugate unspecified formulation Unknown Completed [facility] Haemophilus influenzae type b vaccine, conjugate unspecified formulation Unknown Completed [facility] Meningococcal Polysaccharide (groups A, C, Y and W-135) conjugate vaccine (MCV4P) Unknown Completed [facility] MMR Unknown Completed [facility] MMR Unknown Completed [facility] MMR Unknown Completed [facility] MMR Unknown Completed [facility] Poliovirus, Live, Oral, Trivalent Unknown Completed [facility] Poliovirus, Live, Oral, Trivalent Unknown Completed [facility] Poliovirus, Live, Oral, Trivalent Unknown Completed [facility] TDAP Unknown Completed [facility] Varicella (varivax)(chicken pox) Unknown Completed [facility] DTaP, Unspecified Formulation Unknown Completed [facility] DTaP, Unspecified Formulation Unknown Completed [facility] DTaP, Unspecified Formulation Unknown Completed [facility] DTaP, Unspecified Formulation Unknown Completed [facility] DPT/HIB Unknown Completed [facility] Hepatitis A Adult Unknown Completed [facility] HEPATITIS A Unknown Completed [facility] Hep B, Adol or Pedi Dosage Unknown Completed [facility] Hep B, Adol or Pedi Dosage Unknown Completed [facility] Hep B, Adol or Pedi Dosage Unknown Completed [facility] Haemophilus influenzae type b vaccine, conjugate unspecified formulation Unknown Completed [facility] Haemophilus influenzae type b vaccine, conjugate unspecified formulation Unknown Completed [facility] Meningococcal Polysaccharide (groups A, C, Y and W-135) conjugate vaccine (MCV4P) Unknown Completed [facility] MMR Unknown Completed [facility] MMR Unknown Completed [facility] MMR Unknown Completed [facility] MMR Unknown Completed [facility] Poliovirus, Live, Oral, Trivalent Unknown Completed [facility] Poliovirus, Live, Oral, Trivalent Unknown Completed [facility] Poliovirus, Live, Oral, Trivalent Unknown Completed [facility] TDAP Unknown Completed [facility] Varicella (varivax)(chicken pox) Unknown Completed [facility] DTaP, Unspecified Formulation Unknown Completed [facility] DTaP, Unspecified Formulation Unknown Completed [facility] DTaP, Unspecified Formulation Unknown Completed [facility] DTaP, Unspecified Formulation Unknown Completed [facility] DPT/HIB Unknown Completed [facility] Hepatitis A Adult [facility] Hep B, Adol or Pedi Dosage Unknown Completed [facility] Hep B, Adol or Pedi Dosage Unknown Completed [facility] Hep B, Adol or Pedi Dosage Unknown Completed [facility] Haemophilus influenzae type b vaccine, conjugate unspecified formulation Unknown Completed [facility] Haemophilus influenzae type b vaccine, conjugate unspecified formulation Unknown Completed [facility] Meningococcal Polysaccharide (groups A, C, Y and W-135) conjugate vaccine (MCV4P) Unknown Completed [facility] MMR Unknown Completed [facility] MMR Unknown Completed [facility] MMR Unknown Completed [facility] MMR Unknown Completed [facility] Poliovirus, Live, Oral, Trivalent Unknown Completed [facility] Poliovirus, Live, Oral, Trivalent Unknown Completed [facility] Poliovirus, Live, Oral, Trivalent Unknown Completed [facility] TDAP Unknown Completed [facility] Varicella (varivax)(chicken pox) Unknown Completed [facility] DTaP, Unspecified Formulation Unknown Completed [facility] DTaP, Unspecified Formulation Unknown Completed [facility] DTaP, Unspecified Formulation Unknown Completed [facility] DTaP, Unspecified Formulation Unknown Completed [facility] DPT/HIB Unknown Completed [facility] Hepatitis A Adult [facility] Com[facility] Hep B, Adol or Pedi Dosage Unknown Completed [facility] Hep B, Adol or Pedi Dosage Unknown Completed [facility] Hep B, Adol or Pedi Dosage Unknown Completed [facility] Haemophilus influenzae type b vaccine, conjugate unspecified formulation Unknown Completed [facility] Haemophilus influenzae type b vaccine, conjugate unspecified formulation Unknown Completed [facility] Meningococcal Polysaccharide (groups A, C, Y and W-135) conjugate vaccine (MCV4P) Unknown Completed [facility] MMR Unknown Completed [facility] MMR Unknown Completed [facility] MMR Unknown Completed [facility] MMR Unknown Completed [facility] Poliovirus, Live, Oral, Trivalent Unknown Completed [facility] Poliovirus, Live, Oral, Trivalent Unknown Completed [facility] Poliovirus, Live, Oral, Trivalent Unknown Completed [facility] TDAP Unknown Completed [facility] Varicella (varivax)(chicken pox) Unknown Completed [facility] DTaP, Unspecified Formulation Unknown Completed [facility] DTaP, Unspecified Formulation Unknown Completed [facility] DTaP, Unspecified Formulation Unknown Completed [facility] DTaP, Unspecified Formulation Unknown Completed [facility] DPT/HIB Unknown Completed [facility] Hepatitis A Adult [facility] Hep B, Adol or Pedi Dosage Unknown Completed [facility] Hep B, Adol or Pedi Dosage Unknown Completed [facility] Hep B, Adol or Pedi Dosage Unknown Completed [facility] Haemophilus influenzae type b vaccine, conjugate unspecified formulation Unknown Completed [facility] Haemophilus influenzae type b vaccine, conjugate unspecified formulation Unknown Completed [facility] Meningococcal Polysaccharide (groups A, C, Y and W-135) conjugate vaccine (MCV4P) Unknown Completed [facility] MMR Unknown Completed [facility] MMR Unknown Completed [facility] MMR Unknown Completed [facility] MMR Unknown Completed [facility] Poliovirus, Live, Oral, Trivalent Unknown Completed [facility] Poliovirus, Live, Oral, Trivalent Unknown Completed [facility] Poliovirus, Live, Oral, Trivalent Unknown Completed [facility] TDAP Unknown Completed [facility] Varicella (varivax)(chicken pox) Unknown Completed [facility] DTaP, Unspecified Formulation Unknown Completed [facility] DTaP, Unspecified Formulation Unknown Completed [facility] DTaP, Unspecified Formulation Unknown Completed [facility] DTaP, Unspecified Formulation Unknown Completed [facility] DPT/HIB Unknown Completed [facility] Hepatitis A Adult Unknown Completed Un [facility] HEPATITIS A Unknown Completed [facility] Hep B, Adol or Pedi Dosage Unknown Completed [facility] Hep B, Adol or Pedi Dosage Unknown Completed [facility] Hep B, Adol or Pedi Dosage Unknown Completed [facility] Haemophilus influenzae type b vaccine, conjugate unspecified formulation Unknown Completed [facility] Haemophilus influenzae type b vaccine, conjugate unspecified formulation Unknown Completed [facility] Meningococcal Polysaccharide (groups A, C, Y and W-135) conjugate vaccine (MCV4P) Unknown Completed [facility] MMR Unknown Completed [facility] MMR Unknown Completed [facility] MMR Unknown Completed [facility] MMR Unknown Completed [facility] Poliovirus, Live, Oral, Trivalent Unknown Completed [facility] Poliovirus, Live, Oral, Trivalent Unknown Completed [facility] Poliovirus, Live, Oral, Trivalent Unknown Completed [facility] TDAP Unknown Completed [facility] Varicella (varivax)(chicken pox) Unknown Completed [facility] DTaP, Unspecified Formulation Unknown Completed [facility] DTaP, Unspecified Formulation Unknown Completed [facility] DTaP, Unspecified Formulation Unknown Completed [facility] DTaP, Unspecified Formulation Unknown Completed [facility] DPT/HIB Unknown Completed [facility] Hepatitis A Adult Unknown Completed [facility] HEPATITIS A Unknown Completed [facility] Hep B, Adol or Pedi Dosage Unknown Completed [facility] Hep B, Adol or Pedi Dosage Unknown Completed [facility] Hep B, Adol or Pedi Dosage Unknown Completed [facility] Haemophilus influenzae type b vaccine, conjugate unspecified formulation Unknown Completed [facility] Haemophilus influenzae type b vaccine, conjugate unspecified formulation Unknown Completed [facility] Meningococcal Polysaccharide (groups A, C, Y and W-135) conjugate vaccine (MCV4P) Unknown Completed [facility] MMR Unknown Completed [facility] MMR Unknown Completed [facility] MMR Unknown Completed [facility] MMR Unknown Completed [facility] Poliovirus, Live, Oral, Trivalent Unknown Completed [facility] Poliovirus, Live, Oral, Trivalent Unknown Completed [facility] Poliovirus, Live, Oral, Trivalent Unknown Completed [facility] TDAP Unknown Completed [facility] Varicella (varivax)(chicken pox) Unknown Completed [facility] DTaP, Unspecified Formulation Unknown Completed [facility] DTaP, Unspecified Formulation Unknown Completed [facility] DTaP, Unspecified Formulation Unknown Completed [facility] DTaP, Unspecified Formulation Unknown Completed [facility] DPT/HIB Unknown Completed [facility] Hepatitis A Adult Unknown [facility] Com[facility] Hep B, Adol or Pedi Dosage Unknown Completed [facility] Hep B, Adol or Pedi Dosage Unknown Completed [facility] Hep B, Adol or Pedi Dosage Unknown Completed [facility] Haemophilus influenzae type b vaccine, conjugate unspecified formulation Unknown Completed [facility] Haemophilus influenzae type b vaccine, conjugate unspecified formulation Unknown Completed [facility] Meningococcal Polysaccharide (groups A, C, Y and W-135) conjugate vaccine (MCV4P) Unknown Completed [facility] MMR Unknown Completed [facility] MMR Unknown Completed [facility] MMR Unknown Completed [facility] MMR Unknown Completed [facility] Poliovirus, Live, Oral, Trivalent Unknown Completed [facility] Poliovirus, Live, Oral, Trivalent Unknown Completed [facility] Poliovirus, Live, Oral, Trivalent Unknown Completed [facility] TDAP Unknown Completed [facility] Varicella (varivax)(chicken pox) Unknown Completed [facility] DTaP, Unspecified Formulation Unknown Completed [facility] DTaP, Unspecified Formulation Unknown Completed [facility] DTaP, Unspecified Formulation Unknown Completed [facility] DTaP, Unspecified Formulation Unknown Completed [facility] DPT/HIB Unknown Completed [facility] Hepatitis A Adult Unknown [facility] Completed [facility] Hep B, Adol or Pedi Dosage Unknown Completed [facility] Hep B, Adol or Pedi Dosage Unknown Completed [facility] Hep B, Adol or Pedi Dosage Unknown Completed [facility] Haemophilus influenzae type b vaccine, conjugate unspecified formulation Unknown Completed [facility] Haemophilus influenzae type b vaccine, conjugate unspecified formulation Unknown Completed [facility] Meningococcal Polysaccharide (groups A, C, Y and W-135) conjugate vaccine (MCV4P) Unknown Completed [facility] MMR Unknown Completed [facility] MMR Unknown Completed [facility] MMR Unknown Completed [facility] MMR Unknown Completed [facility] Poliovirus, Live, Oral, Trivalent Unknown Completed [facility] Poliovirus, Live, Oral, Trivalent Unknown Completed [facility] Poliovirus, Live, Oral, Trivalent Unknown Completed [facility] TDAP Unknown Completed [facility] Varicella (varivax)(chicken pox) Unknown Completed [facility] DTaP, Unspecified Formulation Unknown Completed [facility] DTaP, Unspecified Formulation Unknown Completed [facility] DTaP, Unspecified Formulation Unknown Completed [facility] DTaP, Unspecified Formulation Unknown Completed [facility] DPT/HIB Unknown Completed [facility] Hepatitis A Adult Unknown Completed [facility] HEPATITIS A Unknown Completed [facility] Hep B, Adol or Pedi Dosage Unknown Completed [facility] Hep B, Adol or Pedi Dosage Unknown Completed [facility] Hep B, Adol or Pedi Dosage Unknown Completed [facility] Haemophilus influenzae type b vaccine, conjugate unspecified formulation Unknown Completed [facility] Haemophilus influenzae type b vaccine, conjugate unspecified formulation Unknown Completed [facility] Meningococcal Polysaccharide (groups A, C, Y and W-135) conjugate vaccine (MCV4P) Unknown Completed [facility] MMR Unknown Completed [facility] MMR Unknown Completed [facility] MMR Unknown Completed [facility] MMR Unknown Completed [facility] Poliovirus, Live, Oral, Trivalent Unknown Completed [facility] Poliovirus, Live, Oral, Trivalent Unknown Completed [facility] Poliovirus, Live, Oral, Trivalent Unknown Completed [facility] TDAP Unknown Completed [facility] Varicella (varivax)(chicken pox) Unknown Completed [facility] DTaP, Unspecified Formulation Unknown Completed [facility] DTaP, Unspecified Formulation Unknown Completed [facility] DTaP, Unspecified Formulation Unknown Completed [facility] DTaP, Unspecified Formulation Unknown Completed [facility] DPT/HIB Unknown Completed [facility] Hepatitis A Adult Unknown [facility] Completed [facility] Hep B, Adol or Pedi Dosage Unknown Completed [facility] Hep B, Adol or Pedi Dosage Unknown Completed [facility] Hep B, Adol or Pedi Dosage Unknown Completed [facility] Haemophilus influenzae type b vaccine, conjugate unspecified formulation Unknown Completed [facility] Haemophilus influenzae type b vaccine, conjugate unspecified formulation Unknown Completed [facility] Meningococcal Polysaccharide (groups A, C, Y and W-135) conjugate vaccine (MCV4P) Unknown Completed [facility] MMR Unknown Completed [facility] MMR Unknown Completed [facility] MMR Unknown Completed [facility] MMR Unknown Completed [facility] Poliovirus, Live, Oral, Trivalent Unknown Completed [facility] Poliovirus, Live, Oral, Trivalent Unknown Completed [facility] Poliovirus, Live, Oral, Trivalent Unknown Completed [facility] TDAP Unknown Completed [facility] Varicella (varivax)(chicken pox) Unknown Completed [facility] DTaP, Unspecified Formulation Unknown Completed [facility] DTaP, Unspecified Formulation Unknown Completed [facility] DTaP, Unspecified Formulation Unknown Completed [facility] DTaP, Unspecified Formulation Unknown Completed [facility] DPT/HIB Unknown Completed [facility] Hepatitis A Adult Unknown [facility] Completed [facility] Hep B, Adol or Pedi Dosage Unknown Completed [facility] Hep B, Adol or Pedi Dosage Unknown Completed [facility] Hep B, Adol or Pedi Dosage Unknown Completed [facility] Haemophilus influenzae type b vaccine, conjugate unspecified formulation Unknown Completed [facility] Haemophilus influenzae type b vaccine, conjugate unspecified formulation Unknown Completed [facility] Meningococcal Polysaccharide (groups A, C, Y and W-135) conjugate vaccine (MCV4P) Unknown Completed [facility] MMR Unknown Completed [facility] MMR Unknown Completed [facility] MMR Unknown Completed [facility] MMR Unknown Completed [facility] Poliovirus, Live, Oral, Trivalent Unknown Completed [facility] Poliovirus, Live, Oral, Trivalent Unknown Completed [facility] Poliovirus, Live, Oral, Trivalent Unknown Completed [facility] TDAP Unknown Completed [facility] Varicella (varivax)(chicken pox) Unknown Completed [facility] DTaP, Unspecified Formulation Unknown Completed [facility] DTaP, Unspecified Formulation Unknown Completed [facility] DTaP, Unspecified Formulation Unknown Completed [facility] DTaP, Unspecified Formulation Unknown Completed [facility] DPT/HIB Unknown Completed [facility] Hepatitis A Adult Unknown [facility] Completed [facility] Hep B, Adol or Pedi Dosage Unknown Completed [facility] Hep B, Adol or Pedi Dosage Unknown Completed [facility] Hep B, Adol or Pedi Dosage Unknown Completed [facility] Haemophilus influenzae type b vaccine, conjugate unspecified formulation Unknown Completed [facility] Haemophilus influenzae type b vaccine, conjugate unspecified formulation Unknown Completed [facility] Meningococcal Polysaccharide (groups A, C, Y and W-135) conjugate vaccine (MCV4P) Unknown Completed [facility] MMR Unknown Completed [facility] MMR Unknown Completed [facility] MMR Unknown Completed [facility] MMR Unknown Completed [facility] Poliovirus, Live, Oral, Trivalent Unknown Completed [facility] Poliovirus, Live, Oral, Trivalent Unknown Completed [facility] Poliovirus, Live, Oral, Trivalent Unknown Completed [facility] TDAP Unknown Completed [facility] Varicella (varivax)(chicken pox) Unknown Completed [facility] DTaP, Unspecified Formulation Unknown Completed [facility] DTaP, Unspecified Formulation Unknown Completed [facility] DTaP, Unspecified Formulation Unknown Completed [facility] DTaP, Unspecified Formulation Unknown Completed [facility] DPT/HIB Unknown Completed [facility] Hepatitis A Adult Unknown [facility] Completed [facility] Hep B, Adol or Pedi Dosage Unknown Completed [facility] Hep B, Adol or Pedi Dosage Unknown Completed [facility] Hep B, Adol or Pedi Dosage Unknown Completed [facility] Haemophilus influenzae type b vaccine, conjugate unspecified formulation Unknown Completed [facility] Haemophilus influenzae type b vaccine, conjugate unspecified formulation Unknown Completed [facility] Meningococcal Polysaccharide (groups A, C, Y and W-135) conjugate vaccine (MCV4P) Unknown Completed [facility] MMR Unknown Completed [facility] MMR Unknown Completed [facility] MMR Unknown Completed [facility] MMR Unknown Completed [facility] Poliovirus, Live, Oral, Trivalent Unknown Completed [facility] Poliovirus, Live, Oral, Trivalent Unknown Completed [facility] Poliovirus, Live, Oral, Trivalent Unknown Completed [facility] TDAP Unknown Completed [facility] Varicella (varivax)(chicken pox) Unknown Completed [facility] DTaP, Unspecified Formulation Unknown Completed [facility] DTaP, Unspecified Formulation Unknown Completed [facility] DTaP, Unspecified Formulation Unknown Completed [facility] DTaP, Unspecified Formulation Unknown Completed [facility] DPT/HIB Unknown Completed [facility] Hepatitis A Adult Unknown Completed [facility] HEPATITIS A Unknown Completed [facility] Hep B, Adol or Pedi Dosage Unknown Completed [facility] Hep B, Adol or Pedi Dosage Unknown Completed [facility] Hep B, Adol or Pedi Dosage Unknown Completed [facility] Haemophilus influenzae type b vaccine, conjugate unspecified formulation Unknown Completed [facility] Haemophilus influenzae type b vaccine, conjugate unspecified formulation Unknown Completed [facility] Meningococcal Polysaccharide (groups A, C, Y and W-135) conjugate vaccine (MCV4P) Unknown Completed [facility] MMR Unknown Completed [facility] MMR Unknown Completed [facility] MMR Unknown Completed [facility] MMR Unknown Completed [facility] Poliovirus, Live, Oral, Trivalent Unknown Completed [facility] Poliovirus, Live, Oral, Trivalent Unknown Completed [facility] Poliovirus, Live, Oral, Trivalent Unknown Completed [facility] TDAP Unknown Completed [facility] Varicella (varivax)(chicken pox) Unknown Completed [facility] DTaP, Unspecified Formulation Unknown Completed [facility] DTaP, Unspecified Formulation Unknown Completed [facility] DTaP, Unspecified Formulation Unknown Completed [facility] DTaP, Unspecified Formulation Unknown Completed [facility] DPT/HIB Unknown Completed [facility]atitis A Adult [facility] Hep B, Adol or Pedi Dosage Unknown Completed [facility] Hep B, Adol or Pedi Dosage Unknown Completed [facility] Hep B, Adol or Pedi Dosage Unknown Completed [facility] Haemophilus influenzae type b vaccine, conjugate unspecified formulation Unknown Completed [facility] Haemophilus influenzae type b vaccine, conjugate unspecified formulation Unknown Completed [facility] Meningococcal Polysaccharide (groups A, C, Y and W-135) conjugate vaccine (MCV4P) Unknown Completed [facility] MMR Unknown Completed [facility] MMR Unknown Completed [facility] MMR Unknown Completed [facility] MMR Unknown Completed [facility] Poliovirus, Live, Oral, Trivalent Unknown Completed [facility] Poliovirus, Live, Oral, Trivalent Unknown Completed [facility] Poliovirus, Live, Oral, Trivalent Unknown Completed [facility] TDAP Unknown Completed [facility] Varicella (varivax)(chicken pox) Unknown Completed [facility] DTaP, Unspecified Formulation Unknown Completed [facility] DTaP, Unspecified Formulation Unknown Completed [facility] DTaP, Unspecified Formulation Unknown Completed [facility] DTaP, Unspecified Formulation Unknown Completed [facility] DPT/HIB Unknown Completed [facility] Hepatitis A Adult [facility] Hep B, Adol or Pedi Dosage Unknown Completed [facility] Hep B, Adol or Pedi Dosage Unknown Completed [facility] Hep B, Adol or Pedi Dosage Unknown Completed [facility] Haemophilus influenzae type b vaccine, conjugate unspecified formulation Unknown Completed [facility] Haemophilus influenzae type b vaccine, conjugate unspecified formulation Unknown Completed [facility] Meningococcal Polysaccharide (groups A, C, Y and W-135) conjugate vaccine (MCV4P) Unknown Completed [facility] MMR Unknown Completed [facility] MMR Unknown Completed [facility] MMR Unknown Completed [facility] MMR Unknown Completed [facility] Poliovirus, Live, Oral, Trivalent Unknown Completed [facility] Poliovirus, Live, Oral, Trivalent Unknown Completed [facility] Poliovirus, Live, Oral, Trivalent Unknown Completed [facility] TDAP Unknown Completed [facility] Varicella (varivax)(chicken pox) Unknown Completed [facility] DTaP, Unspecified Formulation Unknown Completed [facility] DTaP, Unspecified Formulation Unknown Completed [facility] DTaP, Unspecified Formulation Unknown Completed [facility] DTaP, Unspecified Formulation Unknown Completed [facility] DPT/HIB Unknown Completed [facility] Hepatitis A Adult [facility] Hep B, Adol or Pedi Dosage Unknown Completed [facility] Hep B, Adol or Pedi Dosage Unknown Completed [facility] Hep B, Adol or Pedi Dosage Unknown Completed [facility] Haemophilus influenzae type b vaccine, conjugate unspecified formulation Unknown Completed [facility] Haemophilus influenzae type b vaccine, conjugate unspecified formulation Unknown Completed [facility] Meningococcal Polysaccharide (groups A, C, Y and W-135) conjugate vaccine (MCV4P) Unknown Completed [facility] MMR Unknown Completed [facility] MMR Unknown Completed [facility] MMR Unknown Completed [facility] MMR Unknown Completed [facility] Poliovirus, Live, Oral, Trivalent Unknown Completed [facility] Poliovirus, Live, Oral, Trivalent Unknown Completed [facility] Poliovirus, Live, Oral, Trivalent Unknown Completed [facility] TDAP Unknown Completed [facility] Varicella (varivax)(chicken pox) Unknown Completed [facility] DTaP, Unspecified Formulation Unknown Completed [facility] DTaP, Unspecified Formulation Unknown Completed [facility] DTaP, Unspecified Formulation Unknown Completed [facility] DTaP, Unspecified Formulation Unknown Completed [facility] DPT/HIB Unknown Completed [facility] Hepatitis A Adult Unknown Completed Un [facility] HEPATITIS A Unknown Completed [facility] Hep B, Adol or Pedi Dosage Unknown Completed [facility] Hep B, Adol or Pedi Dosage Unknown Completed [facility] Hep B, Adol or Pedi Dosage Unknown Completed [facility] Haemophilus influenzae type b vaccine, conjugate unspecified formulation Unknown Completed [facility] Haemophilus influenzae type b vaccine, conjugate unspecified formulation Unknown Completed [facility] Meningococcal Polysaccharide (groups A, C, Y and W-135) conjugate vaccine (MCV4P) Unknown Completed [facility] MMR Unknown Completed [facility] MMR Unknown Completed [facility] MMR Unknown Completed [facility] MMR Unknown Completed [facility] Poliovirus, Live, Oral, Trivalent Unknown Completed [facility] Poliovirus, Live, Oral, Trivalent Unknown Completed [facility] Poliovirus, Live, Oral, Trivalent Unknown Completed [facility] TDAP Unknown Completed [facility] Varicella (varivax)(chicken pox) Unknown Completed [facility] DTaP, Unspecified Formulation Unknown Completed [facility] DTaP, Unspecified Formulation Unknown Completed [facility] DTaP, Unspecified Formulation Unknown Completed [facility] DTaP, Unspecified Formulation Unknown Completed [facility] DPT/HIB Unknown Completed [facility] Hepatitis A Adult Unknown Completed [facility] HEPATITIS A Unknown Completed [facility] Hep B, Adol or Pedi Dosage Unknown Completed [facility] Hep B, Adol or Pedi Dosage Unknown Completed [facility] Hep B, Adol or Pedi Dosage Unknown Completed [facility] Haemophilus influenzae type b vaccine, conjugate unspecified formulation Unknown Completed [facility] Haemophilus influenzae type b vaccine, conjugate unspecified formulation Unknown Completed [facility] Meningococcal Polysaccharide (groups A, C, Y and W-135) conjugate vaccine (MCV4P) Unknown Completed [facility] MMR Unknown Completed [facility] MMR Unknown Completed [facility] MMR Unknown Completed [facility] MMR Unknown Completed [facility] Poliovirus, Live, Oral, Trivalent Unknown Completed [facility] Poliovirus, Live, Oral, Trivalent Unknown Completed [facility] Poliovirus, Live, Oral, Trivalent Unknown Completed [facility] TDAP Unknown Completed [facility] Varicella (varivax)(chicken pox) Unknown Completed [facility] DTaP, Unspecified Formulation Unknown Completed [facility] DTaP, Unspecified Formulation Unknown Completed [facility] DTaP, Unspecified Formulation Unknown Completed [facility] DTaP, Unspecified Formulation Unknown Completed [facility] DPT/HIB Unknown Completed [facility] Hepatitis A Adult [facility] Com[facility] Hep B, Adol or Pedi Dosage Unknown Completed [facility] Hep B, Adol or Pedi Dosage Unknown Completed [facility] Hep B, Adol or Pedi Dosage Unknown Completed [facility] Haemophilus influenzae type b vaccine, conjugate unspecified formulation Unknown Completed [facility] Haemophilus influenzae type b vaccine, conjugate unspecified formulation Unknown Completed [facility] Meningococcal Polysaccharide (groups A, C, Y and W-135) conjugate vaccine (MCV4P) Unknown Completed [facility] MMR Unknown Completed [facility] MMR Unknown Completed [facility] MMR Unknown Completed [facility] MMR Unknown Completed [facility] Poliovirus, Live, Oral, Trivalent Unknown Completed [facility] Poliovirus, Live, Oral, Trivalent Unknown Completed [facility] Poliovirus, Live, Oral, Trivalent Unknown Completed [facility] TDAP Unknown Completed [facility] Varicella (varivax)(chicken pox) Unknown Completed [facility] DTaP, Unspecified Formulation Unknown Completed [facility] DTaP, Unspecified Formulation Unknown Completed [facility] DTaP, Unspecified Formulation Unknown Completed [facility] DTaP, Unspecified Formulation Unknown Completed [facility] DPT/HIB Unknown Completed [facility] Hepatitis A Adult [facility] Com[facility] Hep B, Adol or Pedi Dosage Unknown Completed [facility] Hep B, Adol or Pedi Dosage Unknown Completed [facility] Hep B, Adol or Pedi Dosage Unknown Completed [facility] Haemophilus influenzae type b vaccine, conjugate unspecified formulation Unknown Completed [facility] Haemophilus influenzae type b vaccine, conjugate unspecified formulation Unknown Completed [facility] Meningococcal Polysaccharide (groups A, C, Y and W-135) conjugate vaccine (MCV4P) Unknown Completed [facility] MMR Unknown Completed [facility] MMR Unknown Completed [facility] MMR Unknown Completed [facility] MMR Unknown Completed [facility] Poliovirus, Live, Oral, Trivalent Unknown Completed [facility] Poliovirus, Live, Oral, Trivalent Unknown Completed [facility] Poliovirus, Live, Oral, Trivalent Unknown Completed [facility] TDAP Unknown Completed [facility] Varicella (varivax)(chicken pox) Unknown Completed [facility] DTaP, Unspecified Formulation Unknown Completed [facility] DTaP, Unspecified Formulation Unknown Completed [facility] DTaP, Unspecified Formulation Unknown Completed [facility] DTaP, Unspecified Formulation Unknown Completed [facility] DPT/HIB Unknown Completed [facility] Hepatitis A Adult Unknown Completed [facility] HEPATITIS A Unknown Completed [facility] Hep B, Adol or Pedi Dosage Unknown Completed [facility] Hep B, Adol or Pedi Dosage Unknown Completed [facility] Hep B, Adol or Pedi Dosage Unknown Completed [facility] Haemophilus influenzae type b vaccine, conjugate unspecified formulation Unknown Completed [facility] Haemophilus influenzae type b vaccine, conjugate unspecified formulation Unknown Completed [facility] Meningococcal Polysaccharide (groups A, C, Y and W-135) conjugate vaccine (MCV4P) Unknown Completed [facility] MMR Unknown Completed [facility] MMR Unknown Completed [facility] MMR Unknown Completed [facility] MMR Unknown Completed [facility] Poliovirus, Live, Oral, Trivalent Unknown Completed [facility] Poliovirus, Live, Oral, Trivalent Unknown Completed [facility] Poliovirus, Live, Oral, Trivalent Unknown Completed [facility] TDAP Unknown Completed [facility] Varicella (varivax)(chicken pox) Unknown Completed [facility] DTaP, Unspecified Formulation Unknown Completed [facility] DTaP, Unspecified Formulation Unknown Completed [facility] DTaP, Unspecified Formulation Unknown Completed [facility] DTaP, Unspecified Formulation Unknown Completed [facility] DPT/HIB Unknown Completed [facility] Hepatitis A Adult Unknown [facility] Completed [facility] Hep B, Adol or Pedi Dosage Unknown Completed [facility] Hep B, Adol or Pedi Dosage Unknown Completed [facility] Hep B, Adol or Pedi Dosage Unknown Completed [facility] Haemophilus influenzae type b vaccine, conjugate unspecified formulation Unknown Completed [facility] Haemophilus influenzae type b vaccine, conjugate unspecified formulation Unknown Completed [facility] Meningococcal Polysaccharide (groups A, C, Y and W-135) conjugate vaccine (MCV4P) Unknown Completed [facility] MMR Unknown Completed [facility] MMR Unknown Completed [facility] MMR Unknown Completed [facility] MMR Unknown Completed [facility] Poliovirus, Live, Oral, Trivalent Unknown Completed [facility] Poliovirus, Live, Oral, Trivalent Unknown Completed [facility] Poliovirus, Live, Oral, Trivalent Unknown Completed [facility] TDAP Unknown Completed [facility] Varicella (varivax)(chicken pox) Unknown Completed [facility] DTaP, Unspecified Formulation Unknown Completed [facility] DTaP, Unspecified Formulation Unknown Completed [facility] DTaP, Unspecified Formulation Unknown Completed [facility] DTaP, Unspecified Formulation Unknown Completed [facility] DPT/HIB Unknown Completed [facility] Hepatitis A Adult [facility] Completed [facility] Hep B, Adol or Pedi Dosage Unknown Completed [facility] Hep B, Adol or Pedi Dosage Unknown Completed [facility] Hep B, Adol or Pedi Dosage Unknown Completed [facility] Haemophilus influenzae type b vaccine, conjugate unspecified formulation Unknown Completed [facility] Haemophilus influenzae type b vaccine, conjugate unspecified formulation Unknown Completed [facility] Meningococcal Polysaccharide (groups A, C, Y and W-135) conjugate vaccine (MCV4P) Unknown Completed [facility] MMR Unknown Completed [facility] MMR Unknown Completed [facility] MMR Unknown Completed [facility] MMR Unknown Completed [facility] Poliovirus, Live, Oral, Trivalent Unknown Completed [facility] Poliovirus, Live, Oral, Trivalent Unknown Completed [facility] Poliovirus, Live, Oral, Trivalent Unknown Completed [facility] TDAP Unknown Completed [facility] Varicella (varivax)(chicken pox) Unknown Completed [facility] DTaP, Unspecified Formulation Unknown Completed [facility] DTaP, Unspecified Formulation Unknown Completed [facility] DTaP, Unspecified Formulation Unknown Completed [facility] DTaP, Unspecified Formulation Unknown Completed [facility] DPT/HIB Unknown Completed [facility] Hepatitis A Adult [facility] Completed [facility] Hep B, Adol or Pedi Dosage Unknown Completed [facility] Hep B, Adol or Pedi Dosage Unknown Completed [facility] Hep B, Adol or Pedi Dosage Unknown Completed [facility] Haemophilus influenzae type b vaccine, conjugate unspecified formulation Unknown Completed [facility] Haemophilus influenzae type b vaccine, conjugate unspecified formulation Unknown Completed [facility] Meningococcal Polysaccharide (groups A, C, Y and W-135) conjugate vaccine (MCV4P) Unknown Completed [facility] MMR Unknown Completed [facility] MMR Unknown Completed [facility] MMR Unknown Completed [facility] MMR Unknown Completed [facility] Poliovirus, Live, Oral, Trivalent Unknown Completed [facility] Poliovirus, Live, Oral, Trivalent Unknown Completed [facility] Poliovirus, Live, Oral, Trivalent Unknown Completed [facility] TDAP Unknown Completed [facility] Varicella (varivax)(chicken pox) Unknown Completed [facility] DTaP, Unspecified Formulation Unknown Completed [facility] DTaP, Unspecified Formulation Unknown Completed [facility] DTaP, Unspecified Formulation Unknown Completed [facility] DTaP, Unspecified Formulation Unknown Completed [facility] DPT/HIB Unknown Completed [facility] Hepatitis A Adult Unknown [facility] Completed [facility] Hep B, Adol or Pedi Dosage Unknown Completed [facility] Hep B, Adol or Pedi Dosage Unknown Completed [facility] Hep B, Adol or Pedi Dosage Unknown Completed [facility] Haemophilus influenzae type b vaccine, conjugate unspecified formulation Unknown Completed [facility] Haemophilus influenzae type b vaccine, conjugate unspecified formulation Unknown Completed [facility] Meningococcal Polysaccharide (groups A, C, Y and W-135) conjugate vaccine (MCV4P) Unknown Completed [facility] MMR Unknown Completed [facility] MMR Unknown Completed [facility] MMR Unknown Completed [facility] MMR Unknown Completed [facility] Poliovirus, Live, Oral, Trivalent Unknown Completed [facility] Poliovirus, Live, Oral, Trivalent Unknown Completed [facility] Poliovirus, Live, Oral, Trivalent Unknown Completed [facility] TDAP Unknown Completed [facility] Varicella (varivax)(chicken pox) Unknown Completed [facility] DTaP, Unspecified Formulation Unknown Completed [facility] DTaP, Unspecified Formulation Unknown Completed [facility] DTaP, Unspecified Formulation Unknown Completed [facility] DTaP, Unspecified Formulation Unknown Completed [facility] DPT/HIB Unknown Completed [facility] Hepatitis A Adult Unknown Completed [facility] HEPATITIS A Unknown Completed [facility] Hep B, Adol or Pedi Dosage Unknown Completed [facility] Hep B, Adol or Pedi Dosage Unknown Completed [facility] [facility] Hep B, Adol or Pedi Dosage Unknown Completed [facility] Haemophilus influenzae type b vaccine, conjugate unspecified formulation Unknown Completed [facility] Haemophilus influenzae type b vaccine, conjugate unspecified formulation Unknown Completed [facility] Meningococcal Polysaccharide (groups A, C, Y and W-135) conjugate vaccine (MCV4P) Unknown Completed [facility] MMR Unknown Completed [facility] MMR Unknown Completed [facility] MMR Unknown Completed [facility] MMR Unknown Completed [facility] Poliovirus, Live, Oral, Trivalent Unknown Completed [facility] Poliovirus, Live, Oral, Trivalent Unknown Completed [facility] Poliovirus, Live, Oral, Trivalent Unknown Completed [facility] TDAP Unknown Completed [facility] Varicella (varivax)(chicken pox) Unknown Completed [facility] DTaP, Unspecified Formulation Unknown Completed [facility] DTaP, Unspecified Formulation Unknown Completed [facility] DTaP, Unspecified Formulation Unknown Completed [facility] DTaP, Unspecified Formulation Unknown Completed [facility] DPT/HIB Unknown Completed [facility] Hepatitis A Adult [facility] Hep B, Adol or Pedi Dosage Unknown Completed [facility] Hep B, Adol or Pedi Dosage Unknown Completed [facility] Hep B, Adol or Pedi Dosage Unknown Completed [facility] Haemophilus influenzae type b vaccine, conjugate unspecified formulation Unknown Completed [facility] Haemophilus influenzae type b vaccine, conjugate unspecified formulation Unknown Completed [facility] Meningococcal Polysaccharide (groups A, C, Y and W-135) conjugate vaccine (MCV4P) Unknown Completed [facility] MMR Unknown Completed [facility] MMR Unknown Completed [facility] MMR Unknown Completed [facility] MMR Unknown Completed [facility] Poliovirus, Live, Oral, Trivalent Unknown Completed [facility] Poliovirus, Live, Oral, Trivalent Unknown Completed [facility] Poliovirus, Live, Oral, Trivalent Unknown Completed [facility] TDAP Unknown Completed [facility] Varicella (varivax)(chicken pox) Unknown Completed [facility] DTaP, Unspecified Formulation Unknown Completed [facility] DTaP, Unspecified Formulation Unknown Completed [facility] DTaP, Unspecified Formulation Unknown Completed [facility] DTaP, Unspecified Formulation Unknown Completed [facility] DPT/HIB Unknown Completed [facility] Hepatitis A Adult [facility] Hep B, Adol or Pedi Dosage Unknown Completed [facility] Hep B, Adol or Pedi Dosage Unknown Completed [facility] Hep B, Adol or Pedi Dosage Unknown Completed [facility] Haemophilus influenzae type b vaccine, conjugate unspecified formulation Unknown Completed [facility] Haemophilus influenzae type b vaccine, conjugate unspecified formulation Unknown Completed [facility] Meningococcal Polysaccharide (groups A, C, Y and W-135) conjugate vaccine (MCV4P) Unknown Completed [facility] MMR Unknown Completed [facility] MMR Unknown Completed [facility] MMR Unknown Completed [facility] MMR Unknown Completed [facility] Poliovirus, Live, Oral, Trivalent Unknown Completed [facility] Poliovirus, Live, Oral, Trivalent Unknown Completed [facility] Poliovirus, Live, Oral, Trivalent Unknown Completed [facility] TDAP Unknown Completed [facility] Varicella (varivax)(chicken pox) Unknown Completed [facility] DTaP, Unspecified Formulation Unknown Completed [facility] DTaP, Unspecified Formulation Unknown Completed [facility] DTaP, Unspecified Formulation Unknown Completed [facility] DTaP, Unspecified Formulation Unknown Completed [facility] DPT/HIB Unknown Completed [facility] Hepatitis A Adult Unknown Completed [facility] HEPATITIS A Unknown Completed [facility] Hep B, Adol or Pedi Dosage Unknown Completed [facility] Hep B, Adol or Pedi Dosage Unknown Completed [facility] Hep B, Adol or Pedi Dosage Unknown Completed [facility] Haemophilus influenzae type b vaccine, conjugate unspecified formulation Unknown Completed [facility] Haemophilus influenzae type b vaccine, conjugate unspecified formulation Unknown Completed [facility] Meningococcal Polysaccharide (groups A, C, Y and W-135) conjugate vaccine (MCV4P) Unknown Completed [facility] MMR Unknown Completed [facility] MMR Unknown Completed [facility] MMR Unknown Completed [facility] MMR Unknown Completed [facility] Poliovirus, Live, Oral, Trivalent Unknown Completed [facility] Poliovirus, Live, Oral, Trivalent Unknown Completed [facility] Poliovirus, Live, Oral, Trivalent Unknown Completed [facility] TDAP Unknown Completed [facility] Varicella (varivax)(chicken pox) Unknown Completed [facility] DTaP, Unspecified Formulation Unknown Completed [facility] DTaP, Unspecified Formulation Unknown Completed [facility] DTaP, Unspecified Formulation Unknown Completed [facility] DTaP, Unspecified Formulation Unknown Completed [facility] DPT/HIB Unknown Completed [facility] Hepatitis A Adult Unknown Completed Un [facility] HEPATITIS A Unknown Completed [facility] Hep B, Adol or Pedi Dosage Unknown Completed [facility] Hep B, Adol or Pedi Dosage Unknown Completed [facility] Hep B, Adol or Pedi Dosage Unknown Completed [facility] Haemophilus influenzae type b vaccine, conjugate unspecified formulation Unknown Completed [facility] Haemophilus influenzae type b vaccine, conjugate unspecified formulation Unknown Completed [facility] Meningococcal Polysaccharide (groups A, C, Y and W-135) conjugate vaccine (MCV4P) Unknown Completed [facility] MMR Unknown Completed [facility] MMR Unknown Completed [facility] MMR Unknown Completed [facility] MMR Unknown Completed [facility] Poliovirus, Live, Oral, Trivalent Unknown Completed [facility] Poliovirus, Live, Oral, Trivalent Unknown Completed [facility] Poliovirus, Live, Oral, Trivalent Unknown Completed [facility] TDAP Unknown Completed [facility] Varicella (varivax)(chicken pox) Unknown Completed [facility] DTaP, Unspecified Formulation Unknown Completed [facility] DTaP, Unspecified Formulation Unknown Completed [facility] DTaP, Unspecified Formulation Unknown Completed [facility] DTaP, Unspecified Formulation Unknown Completed [facility] DPT/HIB Unknown Completed [facility] Hepatitis A Adult Unknown Completed [facility] HEPATITIS A Unknown Completed [facility] Hep B, Adol or Pedi Dosage Unknown Completed [facility] Hep B, Adol or Pedi Dosage Unknown Completed [facility] Hep B, Adol or Pedi Dosage Unknown Completed [facility] Haemophilus influenzae type b vaccine, conjugate unspecified formulation Unknown Completed [facility] Haemophilus influenzae type b vaccine, conjugate unspecified formulation Unknown Completed [facility] Meningococcal Polysaccharide (groups A, C, Y and W-135) conjugate vaccine (MCV4P) Unknown Completed [facility] MMR Unknown Completed [facility] MMR Unknown Completed [facility] MMR Unknown Completed [facility] MMR Unknown Completed [facility] Poliovirus, Live, Oral, Trivalent Unknown Completed [facility] Poliovirus, Live, Oral, Trivalent Unknown Completed [facility] Poliovirus, Live, Oral, Trivalent Unknown Completed [facility] TDAP Unknown Completed [facility] Varicella (varivax)(chicken pox) Unknown Completed [facility] Vital Signs Vital Name Observation Time Observation Value Comments S ource Systolic blood pressure 2023-12-20 17:49:00 130 mm[Hg] [facility] Diastolic blood pressure 2023-12-20 17:49:00 87 mm[Hg] [facility] Heart rate 2023-12-20 17:49:00 74 /min [facility] Body temperature 2023-12-20 17:49:00 37.06 Annabella [facility] Respiratory rate 2023-12-20 17:49:00 17 /min [facility] Body height 2023-12-20 17:49:00 188 cm [facility] Body weight 2023-12-20 17:49:00 99.083 kg [facility] BMI 2023-12-20 17:49:00 28.05 kg/m2 [facility] Oxygen saturation in Arterial blood by Pulse oximetry 2023-12-20 17:49:00 96 /min [facility] Systolic blood pressure 2023-08-13 00:00:00 145 mm[Hg] [facility] Diastolic blood pressure 2023-08-13 00:00:00 99 mm[Hg] [facility] Heart rate 2023-08-13 00:00:00 86 /min [facility] Respiratory rate 2023-08-13 00:00:00 16 /min [facility] Oxygen saturation in Arterial blood by Pulse oximetry 2023-08-13 00:00:00 97 /min [facility] Body temperature 2023-08-12 21:56:00 36.72 Annabella [facility] Body height 2023-08-12 21:56:00 188 cm [facility] Body weight 2023-08-12 21:56:00 101.606 kg [facility] BMI 2023-08-12 21:56:00 28.76 kg/m2 [facility] Systolic blood pressure 2023-07-05 15:10:00 131 mm[Hg] [facility] Diastolic blood pressure 2023-07-05 15:10:00 77 mm[Hg] [facility] Body temperature 2023-07-05 15:10:00 36.44 Annabella [facility] Body height 2023-07-05 15:10:00 188 cm [facility] Body weight 2023-07-05 15:10:00 101.606 kg [facility] BMI 2023-07-05 15:10:00 28.76 kg/m2 [facility] Body height 2023-06-06 20:17:00 188 cm [facility] Body weight 2023-06-06 20:17:00 99.791 kg [facility] BMI 2023-06-06 20:17:00 28.25 kg/m2 [facility] Systolic blood pressure 2023-05-25 19:35:00 145 mm[Hg] [facility] Diastolic blood pressure 2023-05-25 19:35:00 103 mm[Hg] [facility] Heart rate 2023-05-25 19:35:00 84 /min [facility] Body temperature 2023-05-25 19:35:00 36.72 Ann[place] [facility] Respiratory rate 2023-05-25 19:35:00 18 /min [facility] Body height 2023-05-25 19:35:00 188 cm [facility] Body weight 2023-05-25 19:35:00 99.791 kg [facility] BMI 2023-05-25 19:35:00 28.25 kg/m2 [facility] Oxygen saturation in Arterial blood by Pulse oximetry 2023-05-25 19:35:00 100 /min [facility] Systolic blood pressure 2023-05-16 15:17:00 136 mm[Hg] [facility] Diastolic blood pressure 2023-05-16 15:17:00 84 mm[Hg] [facility] Heart rate 2023-05-16 15:17:00 68 /min [facility] Body height 2023-05-16 15:17:00 188 cm [facility] Body weight 2023-05-16 15:17:00 99.791 kg [facility] BMI 2023-05-16 15:17:00 28.25 kg/m2 [facility] Systolic blood pressure 2023-04-30 15:51:00 130 mm[Hg] [facility] Diastolic blood pressure 2023-04-30 15:51:00 88 mm[Hg] [facility] Heart rate 2023-04-30 15:49:00 68 /min [facility] Respiratory rate 2023-04-30 15:49:00 18 /min [facility] Body height 2023-04-30 15:49:00 188 cm [facility] Body weight 2023-04-30 15:49:00 99.791 kg [facility] BMI 2023-04-30 15:49:00 28.25 kg/m2 [facility] Oxygen saturation in Arterial blood by Pulse oximetry 2023-04-30 15:49:00 98 /min [facility] Systolic blood pressure 2023-04-23 20:31:00 134 mm[Hg] [facility] Diastolic blood pressure 2023-04-23 20:31:00 87 mm[Hg] [facility] Heart rate 2023-04-23 20:31:00 78 /min [facility] Respiratory rate 2023-04-23 20:31:00 18 /min [facility] Body height 2023-04-23 20:31:00 182.9 cm [facility] Body weight 2023-04-23 20:31:00 100.925 kg [facility] BMI 2023-04-23 20:31:00 30.18 kg/m2 [facility] Oxygen saturation in Arterial blood by Pulse oximetry 2023-04-23 20:31:00 96 /min [facility] Systolic blood pressure 2023-01-03 19:17:00 136 mm[Hg] [facility] Diastolic blood pressure 2023-01-03 19:17:00 84 mm[Hg] [facility] Heart rate 2023-01-03 19:17:00 83 /min [facility] Body temperature 2023-01-03 19:13:00 36.61 Annabella [facility] Body height 2023-01-03 19:13:00 188 cm [facility] Body weight 2023-01-03 19:13:00 99.202 kg [facility] BMI 2023-01-03 19:13:00 28.08 kg/m2 [facility] Oxygen saturation in Arterial blood by Pulse oximetry 2023-01-03 19:13:00 98 /min [facility] Systolic blood pressure 2022-12-12 20:32:00 143 mm[Hg] [facility] Diastolic blood pressure 2022-12-12 20:32:00 92 mm[Hg] [facility] Heart rate 2022-12-12 20:19:00 92 /min [facility] Respiratory rate 2022-12-12 20:19:00 22 /min [facility] Body height 2022-12-12 20:19:00 188 cm [facility] Body weight 2022-12-12 20:19:00 97.977 kg [facility] BMI 2022-12-12 20:19:00 27.73 kg/m2 [facility] Oxygen saturation in Arterial blood by Pulse oximetry 2022-12-12 20:19:00 99 /min [facility] Systolic blood pressure 2022-12-12 01:19:00 151 mm[Hg] [facility] Diastolic blood pressure 2022-12-12 01:19:00 97 mm[Hg] [facility] Heart rate 2022-12-12 01:19:00 86 /min [facility] Respiratory rate 2022-12-12 01:19:00 18 /min [facility] Oxygen saturation in Arterial blood by Pulse oximetry 2022-12-12 01:19:00 99 /min [facility] Body temperature 2022-12-11 23:51:47 36.67 Annabella [facility] Body weight 2022-12-11 22:02:00 97.977 kg [facility] BMI 2022-12-11 22:02:00 27.73 kg/m2 [facility] Systolic blood pressure 2022-12-08 23:30:00 145 mm[Hg] [facility] Diastolic blood pressure 2022-12-08 23:30:00 95 mm[Hg] [facility] Heart rate 2022-12-08 23:30:00 61 /min [facility] Respiratory rate 2022-12-08 23:30:00 16 /min [facility] Oxygen saturation in Arterial blood by Pulse oximetry 2022-12-08 23:30:00 98 /min [facility] Body temperature 2022-12-08 20:26:00 36.78 Annabella [facility] Body height 2022-12-08 20:26:00 188 cm [facility] Body weight 2022-12-08 20:26:00 97.977 kg [facility] BMI 2022-12-08 20:26:00 27.73 kg/m2 [facility] Systolic blood pressure 2022-12-05 18:21:00 138 mm[Hg] [facility] Diastolic blood pressure 2022-12-05 18:21:00 100 mm[Hg] [facility] Heart rate 2022-12-05 18:21:00 77 /min [facility] Oxygen saturation in Arterial blood by Pulse oximetry 2022-12-05 18:21:00 98 /min [facility] Body temperature 2022-12-05 18:19:00 36.61 Annabella [facility] Respiratory rate 2022-12-05 18:19:00 18 /min [facility] Body height 2022-12-05 18:19:00 188 cm [facility] Body weight 2022-12-05 18:19:00 97.07 kg [facility] BMI 2022-12-05 18:19:00 27.48 kg/m2 [facility] Systolic blood pressure 2022-12-05 14:58:00 131 mm[Hg] [facility] Diastolic blood pressure 2022-12-05 14:58:00 93 mm[Hg] [facility] Heart rate 2022-12-05 14:50:00 86 /min [facility] Body temperature 2022-12-05 14:50:00 36.5 Annabella [facility] Respiratory rate 2022-12-05 14:50:00 18 /min [facility] Body height 2022-12-05 14:50:00 188 cm [facility] Body weight 2022-12-05 14:50:00 98.294 kg [facility] BMI 2022-12-05 14:50:00 27.82 kg/m2 [facility] Oxygen saturation in Arterial blood by Pulse oximetry 2022-12-05 14:50:00 99 /min [facility] Systolic blood pressure 2022-11-14 01:41:47 150 mm[Hg] [facility] Diastolic blood pressure 2022-11-14 01:41:47 106 mm[Hg] [facility] Heart rate 2022-11-14 01:41:47 64 /min [facility] Body temperature 2022-11-14 01:41:47 37.28 Annabella [facility] Respiratory rate 2022-11-14 01:41:47 18 /min [facility] Oxygen saturation in Arterial blood by Pulse oximetry 2022-11-14 01:41:47 98 /min [facility] Body height 2022-11-13 21:48:00 188 cm [facility] Body weight 2022-11-13 21:48:00 97.523 kg [facility] BMI 2022-11-13 21:48:00 27.60 kg/m2 [facility] Systolic blood pressure 2022-11-06 15:55:00 120 mm[Hg] [facility] Diastolic blood pressure 2022-11-06 15:55:00 76 mm[Hg] [facility] Heart rate 2022-11-06 15:55:00 67 /min [facility] Body temperature 2022-11-06 15:55:00 36.5 Annabella [facility] Body height 2022-11-06 15:55:00 188 cm [facility] Body weight 2022-11-06 15:55:00 97.523 kg [facility] BMI 2022-11-06 15:55:00 27.60 kg/m2 [facility] Oxygen saturation in Arterial blood by Pulse oximetry 2022-11-06 15:55:00 100 /min [facility] Systolic blood pressure 2022-08-07 19:14:00 110 mm[Hg] [facility] Diastolic blood pressure 2022-08-07 19:14:00 71 mm[Hg] [facility] Heart rate 2022-08-07 19:14:00 77 /min [facility] Body temperature 2022-08-07 19:14:00 36.94 Annabella [facility] Body height 2022-08-07 19:14:00 188 cm [facility] Body weight 2022-08-07 19:14:00 97.523 kg [facility] BMI 2022-08-07 19:14:00 27.60 kg/m2 [facility] Oxygen saturation in Arterial blood by Pulse oximetry 2022-08-07 19:14:00 100 /min [facility] Systolic blood pressure 2021-01-07 18:03:00 159 mm[Hg] hysterically crying and moving [facility] Diastolic blood pressure 2021-01-07 18:03:00 128 mm[Hg] hysterically crying and moving [facility] Heart rate 2021-01-07 18:03:00 109 /min [facility] Body temperature 2021-01-07 18:03:00 37.72 Annabella [facility] Respiratory rate 2021-01-07 18:03:00 18 /min [facility] Body weight 2021-01-07 18:03:00 113.399 kg [facility] BMI 2021-01-07 18:03:00 32.10 kg/m2 [facility] Oxygen saturation in Arterial blood by Pulse oximetry 2021-01-07 18:03:00 100 /min [facility] Systolic blood pressure 2021-01-07 18:03:00 159 mm[Hg] hysterically crying and moving [facility] Diastolic blood pressure 2021-01-07 18:03:00 128 mm[Hg] hysterically crying and moving [facility] Heart rate 2021-01-07 18:03:00 109 /min [facility] Body temperature 2021-01-07 18:03:00 37.72 Annabella [facility] Respiratory rate 2021-01-07 18:03:00 18 /min [facility] Body weight 2021-01-07 18:03:00 113.399 kg [facility] BMI 2021-01-07 18:03:00 32.10 kg/m2 [facility] Oxygen saturation in Arterial blood by Pulse oximetry 2021-01-07 18:03:00 100 /min [facility] Systolic blood pressure 2020-12-28 19:00:00 129 mm[Hg] [facility] Diastolic blood pressure 2020-12-28 19:00:00 83 mm[Hg] [facility] Heart rate 2020-12-28 19:00:00 71 /min [facility] Respiratory rate 2020-12-28 19:00:00 16 /min [facility] Oxygen saturation in Arterial blood by Pulse oximetry 2020-12-28 19:00:00 100 /min [facility] Body temperature 2020-12-28 17:10:00 36.28 Annabella [facility] Body height 2020-12-28 17:10:00 188 cm [facility] Body weight 2020-12-28 17:10:00 113.399 kg [facility] BMI 2020-12-28 17:10:00 32.10 kg/m2 [facility] Systolic blood pressure 2020-12-28 19:00:00 129 mm[Hg] [facility] Diastolic blood pressure 2020-12-28 19:00:00 83 mm[Hg] [facility] Heart rate 2020-12-28 19:00:00 71 /min [facility] Respiratory rate 2020-12-28 19:00:00 16 /min [facility] Oxygen saturation in Arterial blood by Pulse oximetry 2020-12-28 19:00:00 100 /min [facility] Body temperature 2020-12-28 17:10:00 36.28 Annabella [facility] Body height 2020-12-28 17:10:00 188 cm [facility] Body weight 2020-12-28 17:10:00 113.399 kg [facility] BMI 2020-12-28 17:10:00 32.10 kg/m2 [facility] Systolic blood pressure 2020-12-10 20:25:00 123 mm[Hg] [facility] Diastolic blood pressure 2020-12-10 20:25:00 81 mm[Hg] [facility] Heart rate 2020-12-10 20:25:00 66 /min [facility] Respiratory rate 2020-12-10 20:25:00 14 /min [facility] Oxygen saturation in Arterial blood by Pulse oximetry 2020-12-10 20:25:00 99 /min [facility] Body temperature 2020-12-10 16:12:00 37.22 Annabella [facility] Body height 2020-12-10 15:41:00 188 cm [facility] Body weight 2020-12-10 15:41:00 99.474 kg [facility] BMI 2020-12-10 15:41:00 28.16 kg/m2 [facility] Systolic blood pressure 2020-12-10 20:25:00 123 mm[Hg] [facility] Diastolic blood pressure 2020-12-10 20:25:00 81 mm[Hg] [facility] Heart rate 2020-12-10 20:25:00 66 /min [facility] Respiratory rate 2020-12-10 20:25:00 14 /min [facility] Oxygen saturation in Arterial blood by Pulse oximetry 2020-12-10 20:25:00 99 /min [facility] Body temperature 2020-12-10 16:12:00 37.22 Annabella [facility] Body height 2020-12-10 15:41:00 188 cm [facility] Body weight 2020-12-10 15:41:00 99.474 kg [facility] BMI 2020-12-10 15:41:00 28.16 kg/m2 [facility] Systolic blood pressure 2020-11-21 13:01:00 159 mm[Hg] [facility] Diastolic blood pressure 2020-11-21 13:01:00 100 mm[Hg] [facility] Heart rate 2020-11-21 13:01:00 72 /min [facility] Body temperature 2020-11-21 13:01:00 36.61 Annabella [facility] Respiratory rate 2020-11-21 13:01:00 18 /min [facility] Body weight 2020-11-21 13:01:00 97.523 kg [facility] BMI 2020-11-21 13:01:00 27.60 kg/m2 [facility] Oxygen saturation in Arterial blood by Pulse oximetry 2020-11-21 13:01:00 100 /min [facility] Systolic blood pressure 2020-11-21 13:01:00 159 mm[Hg] [facility] Diastolic blood pressure 2020-11-21 13:01:00 100 mm[Hg] [facility] Heart rate 2020-11-21 13:01:00 72 /min [facility] Body temperature 2020-11-21 13:01:00 36.61 Annabella [facility] Respiratory rate 2020-11-21 13:01:00 18 /min [facility] Body weight 2020-11-21 13:01:00 97.523 kg [facility] BMI 2020-11-21 13:01:00 27.60 kg/m2 [facility] Oxygen saturation in Arterial blood by Pulse oximetry 2020-11-21 13:01:00 100 /min [facility] Procedures Procedure Date / Time Performed Performing Clinician Source POCT MOLECULAR FLU 2023-12-20 17:56:00 Unknown, Attend ing [facility] POCT SARS-COV-2 ANTIGEN (BINAX NOW) 2023-12-20 17:55:00 Kathy Lux [facility] POCT MOLECULAR STREP 2023-12-20 17:53:00 Unknown, Atte michoacano [facility] ASSIGNMENT OF BENEFITS 2023-08-22 15:32:30 Docto r Unassigned, Coaling [facility] XR CHEST 2 VW 2023-08-12 22:55:39 Zohra Prater [facility] XR NECK SOFT TISSUE 2023-08-12 22:55:39 Adelia Prater [facility] ASSIGNMENT OF BENEFITS 2023-08-12 22:21:13 Docto r Unassigned, Coaling [facility] CONSENT/REFUSAL FOR DIAGNOSIS AND TREATMENT 2023-08-12 21:44:30 Doctor Unassigned, Coaling [facility] XR CERVICAL SPINE 2 VW 2023-07-05 15:20:41 Jessy son, Eddie Hernández [facility] MR SHOULDER LEFT WO CONTRAST 2023-06-04 17:59:00 Dharmesh Higgins [facility] CONSENT/REFUSAL FOR DIAGNOSIS AND TREATMENT 2023-05-25 19:24:17 Doctor Unassigned, Coaling [facility] REFERRAL- REQUEST/RESPONSE 2023-05-16 06:01:00 Doctor Unassigned, Coaling [facility] XR SHOULDER 2+ VW LEFT 2023-04-30 16:27:10 Kayla Begum [facility] VACCINATIONS - CONSENTS, ELIGIBILITY, HISTORY 2022-12-20 05:01:00 Doctor Unassigned, Coaling [facility] COMP. METABOLIC PANEL ([id number]) 2022-12-11 23:36:00 Ivy Thakkar [facility] CBC WITH DIFF 2022-12-11 23:36:00 Ivy Thakkar [facility] URINALYSIS 2022-12-11 23:36:00 [facility] (IMMUNOASSAY) - COMPREHENSIVE DRUG SCREEN W/O REFLEX 2022-12-11 23:36:00 Ivy Thakkar [facility] US SCROTUM AND CONTENTS 2022-12-11 23:27:01 Ivy Thakkar [facility] CONSENT/REFUSAL FOR DIAGNOSIS AND TREATMENT 2022-12-11 21:59:16 Doctor Unassigned, Coaling [facility] ASSIGNMENT OF BENEFITS 2022-12-08 21:05:34 Docto r Unassigned, Coaling [facility] LIPASE 2022-12-08 20:59:00 Amarilis Banuelos [facility] MAGNESIUM 2022-12-08 20:59:00 Amarilis Banuelos [facility] TROPONIN I 2022-12-08 20:59:00 Amarilis Banuelos [facility] THYROID STIMULATING HORMONE 2022-12-08 20:59:00 Amarilis Banuelos [facility] COMP. METABOLIC PANEL ([id number]) 2022-12-08 20:59:00 Amarilis Banuelos [facility] CBC WITH DIFF 2022-12-08 20:59:00 Amarilis Banuelos [facility] D-DIMER 2022-12-08 20:59:00 Amarilis Banuelos [facility] URINALYSIS 2022-12-08 20:59:00 Haylee [facility] URINE DRUG (IMMUNOASSAY) - COMPREHENSIVE DRUG SCREEN W/O REFLEX 2022-12-08 20:59:00 Amarilis Banuelos [facility] CONSENT/REFUSAL FOR DIAGNOSIS AND TREATMENT 2022-12-08 20:14:46 Doctor Unassigned, Coaling [facility] CT ABDOMEN PELVIS WO CONTRAST 2022-12-05 20:49:00 Kaden Andrew [facility] ASSIGNMENT OF BENEFITS 2022-12-05 20:38:36 Docto r Unassigned, Coaling [facility] EXTERNAL PROVIDER RECORDS 2022-11-27 05:01:00 Doctor Unassigned, Coaling [facility] US TESTICULAR TORSION 2022-11-13 23:53:44 Gaurav Esparza [facility] ASSIGNMENT OF BENEFITS 2022-11-13 23:53:42 Docto r Unassigned, Coaling [facility] BASIC METABOLIC PANEL (NA, K, CL, CO2, GLUCOSE, BUN, CREATININE, CA) 2022-11-13 23:02:00 Gaurav Esparza [facility] CBC WITH DIFF 2022-11-13 23:02:00 Gaurav Esparza [facility] URINALYSIS 2022-11-13 23:02:00 Gaurav Esparza [facility] NOTICE OF PRIVACY PRACTICES 2022-11-13 21:34:09 Doctor Unassigned, Coaling [facility] CONSENT/REFUSAL FOR DIAGNOSIS AND TREATMENT 2022-11-13 21:33:31 Doctor Unassigned, Coaling [facility] URINE CULTURE 2022-11-06 16:40:00 Alena Min [facility] POCT URINALYSIS 2022-11-06 16:30:00 Alena Min [facility] AUTHORIZATION TO RELEASE PHI TO [facility] 2022-11-06 05:01:00 Doctor Unassigned, Coaling [facility] CONSENT/REFUSAL FOR DIAGNOSIS AND TREATMENT 2021-01-07 17:59:07 Doctor Unassigned, Coaling [facility] CT ABDOMEN PELVIS W CONTRAST 2020-12-28 18:45:34 Alvarez Archer [facility] LIPASE 2020-12-28 17:39:00 Alvarez Archer [facility] COMP. METABOLIC PANEL ([id number]) 2020-12-28 17:39:00 Alvarez Archer [facility] CBC WITH DIFF 2020-12-28 17:39:00 Alvarez Archer [facility] URINALYSIS 2020-12-28 17:39:00 Alvarez Archer [facility] CONSENT/REFUSAL FOR DIAGNOSIS AND TREATMENT 2020-12-28 16:58:57 Doctor Unassigned, Coaling [facility] PROTHROMBIN TIME / INR 2020-12-10 15:10:00 Rashawn Berman [facility] ACTIVATED PARTIAL THRMPLAS JENNIFER 2020-12-10 15:10:00 Barrington Berman [facility] URINE DRUG (IMMUNOASSAY) - COMPREHENSIVE DRUG SCREEN 2020-12-10 13:45:00 Barrington Berman [facility] URINALYSIS 2020-12-10 13:45:00 Barrington Berman [facility] COVID-19 (ID NOW RAPID TESTING) 2020-12-10 12:46:00 Barrington Berman [facility] SALICYLATE 2020-12-10 12:18:00 Barrington Berman [facility] LACTIC ACID WHOLE BLOOD 2020-12-10 12:15:00 Do gladys Berman [facility] LIPASE 2020-12-10 12:13:00 Barrington Berman [facility] MAGNESIUM 2020-12-10 12:13:00 [facility] HEPATIC FUNCTION PANEL ([id number]) (ALB,T.PRO,BILI T,BU/BC,ALT,AST,ALK PHOS) 2020-12-10 12:13:00 Barrington Berman [facility] BASIC METABOLIC PANEL (NA, K, CL, CO2, GLUCOSE, BUN, CREATININE, CA) 2020-12-10 12:13:00 Barrington Berman [facility] ETHANOL 2020-12-10 12:13:00 Barrington Berman [facility] CBC WITH DIFF 2020-12-10 12:13:00 Barrington Berman [facility] HB ECG ROUTINE & RHYTHM STRIP 2020-12-10 12:01:59 Barrington Berman [facility] CONSENT/REFUSAL FOR DIAGNOSIS AND TREATMENT 2020-12-10 11:46:13 Doctor Unassigned, Coaling [facility] NOTICE OF PRIVACY PRACTICES 2020-11-21 12:58:09 Doctor Unassigned, Coaling [facility] CONSENT/REFUSAL FOR DIAGNOSIS AND TREATMENT 2020-11-21 12:57:43 Doctor Unassigned, Coaling [facility] Encounters Start Date/Time End Date/Time Encounter Type Admission Type Attending [facility] Care Facility Care Department Encounter ID Source 2024-03-27 14:30:00 2024-03-27 14:30:00 Outpatient R SHAUNNA DONATO [facility] [id number] [facility] 2024-03-09 00:00:00 2024-03-09 13:27:08 Letter (Out) [facility] 1..840.114 350.1.13.10 4.2.7.2.686 [id number] [facility] 2024-03-06 17:29:55 2024-03-06 17:29:55 Outpatient [facility] [id number] Marty Arriola Chava 2024-03-04 00:00:00 2024-03-05 18:04:57 Telephone Shaunna Donato ON LICENSE OF [facility] 1..840.114 350.1.13.10 4.2.7.2.686 [id number] [facility] 2024-03-02 00:00:00 2024-03-03 09:49:39 Refill Kayla rGimes Geeta ON LICENSE OF [facility] 1.2.840.114 350.1.13.10 4.2.7.2.686 [id number] [facility] 2024-02-06 11:00:00 2024-02-06 11:00:00 Outpatient R KAYLA GRIMES [facility] [id number] [facility] 2024-01-23 13:00:00 2024-01-23 13:00:00 Outpatient R KAYLA GRIMSE [facility] [id number] [facility] 2024-01-22 17:25:37 2024-01-22 17:25:37 Outpatient [facility] [id number] Marty Larsen 2024-01-21 14:20:00 2024-01-21 14:20:00 Outpatient R KAYLA GRIMES [facility] [id number] [facility] 2023-12-25 00:00:00 2023-12-25 12:40:04 Refill Kathy Lux ON LICENSE OF [facility] OFFICE [facility] 1.2.840.114 350.1.13.10 4.2.7.2.686 [id number] [facility] 2023-12-24 00:00:00 2023-12-25 09:44:00 Telephone Kayla Grmies ON LICENSE OF [facility] 1.2.840.114 350.1.13.10 4.2.7.2.686 [id number] [facility] 2023-12-20 11:40:00 2023-12-20 13:33:48 Outpatient R KATHY LUX [facility] [id number] [facility] 2023-12-20 11:40:00 2023-12-20 12:00:00 Urgent Care Kathy Lux, Attending ON LICENSE OF [facility] 1..840.114 350.1.13.10 4.2.7.2.686 [id number] [facility] 2023-12-12 13:40:00 2023-12-12 13:40:00 Outpatient KAYLA CLANCY [facility] [id number] [facility] 2023-12-05 00:00:00 2023-12-05 13:39:41 Telephone Kayla Grimes ON LICENSE OF [facility] 1..840.114 350.1.13.10 4.2.7.2.686 [id number] [facility] 2023-11-01 15:15:00 2023-11-01 15:15:00 Outpatient EDDIE MIRANDA [facility] [id number] [facility] 2023-10-30 11:00:00 2023-10-30 11:00:00 Outpatient KAYLA CLANCY [facility] [id number] [facility] 2023-10-30 00:00:00 2023-10-30 00:00:00 Telephone Nicole Wooten HIT[facility] GIMENE[facility] 1..840.114 350.1.13.10 4.2.7.2.686 [id number] [facility] 2023-10-23 00:00:00 2023-10-23 00:00:00 Pre Visit Outreach Alexandrea Barber [facility]IM[facility] 1..840.114 350.1.13.10 4.2.7.2.686 [id number] [facility] 2023-10-22 16:00:00 2023-10-22 16:00:00 Outpatient EDDIE MIRANDA [facility] [id number] [facility] 2023-10-09 00:00:00 2023-10-09 00:00:00 [facility] 1.840.114 350.1.13.10 4.2.7.2.686 [id number] [facility] 2023-09-16 00:00:00 2023-09-16 00:00:00 Telephone Nicole Wooten 1.2840.114 350.1.13.10 4.2.7.2.686 [id number] [facility] 2023-09-10 11:00:00 2023-09-10 11:00:00 Outpatient R [facility] [id number] [facility] 2023-09-10 00:00:00 2023-09-10 00:00:00 Case Management Sebastian Rea [facility] 1.2840.114 350.1.13.10 4.2.7.2.686 [id number] [facility] 2023-09-05 00:00:00 2023-09-05 00:00:00 Telephone Je Nicole [place] 1.84.114 350.1.13.10 4.2.7.2.686 [id number] [facility] 2023-09-03 15:15:00 2023-09-03 15:15:00 Outpatient R [facility] [id number] [facility] 2023-08-28 08:45:00 2023-08-28 08:45:00 Outpatient R LORENA SAAVEDRA CRAIG [facility] [id number] [facility] 2023-08-28 00:00:00 2023-08-28 00:00:00 Telephone Nicole Wooten 1.840.114 350.1.13.10 4.2.7.2.686 [id number] [facility] 2023-08-26 00:00:00 2023-08-26 00:00:00 Telephone Nicole Wooten 1.2.840.114 350.1.13.10 4.2.7.2.686 [id number] [facility] 2023-08-23 00:00:00 2023-08-23 00:00:00 Telephone Nicole Wooten 1.2.840.114 350.1.13.10 4.2.7.2.686 [id number] [facility] 2023-08-22 08:45:00 2023-08-22 09:30:00 Ancillary Visit Sebastian Rea Jeremy Samuel [facility] 1.2.840.114 350.1.13.10 4.2.7.2.686 [id number] [facility] 2023-08-22 00:00:00 2023-08-22 00:00:00 Orders Only Doctor Unassigned, Coaling [facility] 1.2.840.114 350.1.13.10 4.2.7.2.686 [id number] [facility] 2023-08-16 09:30:00 2023-08-16 10:15:00 Ancillary Visit Sebastian Rea Craig L [facility] 1.2.840.114 350.1.13.10 4.2.7.2.686 [id number] [facility] 2023-08-12 15:58:00 2023-08-12 18:23:00 Emergency X ZOHRA PRATER [facility] ERT [id number] [facility] 2023-08-12 15:58:00 2023-08-12 18:23:00 Emergency Zohra Prater [facility] 1.2840.114 350.1.13.10 4.2.7.2.686 [id number] [facility] 2023-08-09 08:00:00 2023-08-09 09:22:33 Ancillary Visit Val Bell Craig L [facility] 1.2840.114 350.1.13.10 4.2.7.2.686 [id number] [facility] 2023-08-09 00:00:00 2023-08-09 00:00:00 Telephone Nicole Wooten 1.840.114 350.1.13.10 4.2.7.2.686 [id number] [facility] 2023-08-06 11:19:47 2023-08-06 11:19:47 Outpatient [facility] [id number] Marty Larsen 2023-08-06 11:00:00 2023-08-06 11:00:00 Outpatient R KAYLA GRIMES [facility] [id number] [facility] 2023-08-02 08:45:00 2023-08-02 08:45:00 Outpatient R [facility] [id number] [facility] 2023-07-26 00:00:00 2023-07-26 00:00:00 Telephone Nicole Wooten 1.840.114 350.1.13.10 4.2.7.2.686 [id number] [facility] 2023-07-25 13:40:52 2023-07-25 13:40:52 Outpatient [facility] [id number] Marty Larsen 2023-07-19 09:30:00 2023-07-19 09:30:00 Outpatient R EDDIE DAVIS [facility] [id number] [facility] 2023-07-12 10:23:23 2023-07-12 10:23:23 Outpatient [facility] [id number] Marty Larsen 2023-07-11 00:00:00 2023-07-11 00:00:00 Telephone Nicole Wooten 1.2.840.114 350.1.13.10 4.2.7.2.686 [id number] [facility] 2023-07-05 09:14:31 2023-07-05 23:59:00 Outpatient R EDDIE DAVIS [facility] [id number] [facility] 2023-07-05 09:14:31 2023-07-05 23:59:00 Hospital Encounter Eddie Davis [facility] [place] [place] [facility] 1.2.840.114 350.1.13.10 4.2.7.2.686 [id number] [facility] 2023-07-05 09:30:00 2023-07-05 09:50:18 Office Visit Eddie Davis [facility] [place] [facility] 1.2.840.114 350.1.13.10 4.2.7.2.686 [id number] [facility] 2023-06-12 00:00:00 2023-06-12 00:00:00 Telephone Eddie Davis [facility] [place] [facility] 1.2.840.114 350.1.13.10 4.2.7.2.686 [id number] [facility] 2023-06-07 10:58:30 2023-06-07 10:58:30 Outpatient [facility] [id number] Marty Larsen 2023-06-06 14:15:00 2023-06-06 14:33:21 Outpatient R LORENA SAAVEDRA CRAIG [facility] [id number] [facility] 2023-06-06 14:15:00 2023-06-06 14:33:21 Office Visit Lorena Saavedra ON LICENSE OF [facility] 1.2.840.114 350.1.13.10 4.2.7.2.686 [id number] [facility] 2023-06-05 00:00:00 2023-06-05 00:00:00 Patient Secure Msg Doctor Unassigned, Coaling ON LICENSE OF [facility] 1.840.114 350.1.13.10 4.2.7.2.686 [id number] [facility] 2023-06-04 10:58:16 2023-06-04 23:59:00 Outpatient R DHARMESH HIGGINS [facility] [id number] [facility] 2023-06-04 10:58:16 2023-06-04 23:59:00 Hospital Encounter Dharmesh Higgins S [facility] 1..840.114 350.1.13.10 4.2.7.2.686 [id number] [facility] 2023-05-27 00:00:00 2023-05-27 00:00:00 Telephone Nicole Wooten 1..840.114 350.1.13.10 4.2.7.2.686 [id number] [facility] 2023-05-26 09:40:00 2023-05-26 09:40:00 Outpatient R [facility] [id number] [facility] 2023-05-25 13:37:00 2023-05-25 14:30:00 Emergency X GORDON NORWOOD [facility] ERT [id number] [facility] 2023-05-25 13:37:00 2023-05-25 14:30:00 Emergency Gordon Norwood [facility] 1.2.840.114 350.1.13.10 4.2.7.2.686 [id number] [facility] 2023-05-24 15:40:00 2023-05-24 15:40:00 Outpatient KAYLA CLANCY [facility] [id number] [facility] 2023-05-22 00:00:00 2023-05-22 00:00:00 Telephone Bebo Dharmesh [facility] 1.2840.114 350.1.13.10 4.2.7.2.686 [id number] [facility] 2023-05-22 00:00:00 2023-05-22 00:00:00 Patient Secure Msg Doctor Unassigned, Coaling ON LICENSE OF [facility] 1.2.840.114 350.1.13.10 4.2.7.2.686 [id number] [facility] 2023-05-21 00:00:00 2023-05-21 00:00:00 Telephone Bebo Dharmesh Ryan [facility] 1.2.840.114 350.1.13.10 4.2.7.2.686 [id number] [facility] 2023-05-17 09:07:43 2023-05-17 09:07:43 Outpatient [facility] [id number] Marty Larsen 2023-05-17 00:00:00 2023-05-17 00:00:00 Telephone Nicole Wooten 1.2.840.114 350.1.13.10 4.2.7.2.686 [id number] [facility] 2023-05-16 09:30:00 2023-05-16 10:00:00 [facility] 1.2840.114 350.1.13.10 4.2.7.2.686 [id number] [facility] 2023-05-16 09:30:00 2023-05-16 09:46:59 Outpatient DHARMESH MCDONALD [facility] [id number] [facility] 2023-05-16 00:00:00 2023-05-16 00:00:00 Orders Only Doctor Unassigned, Coaling [facility] 1.2840.114 350.1.13.10 4.2.7.2.686 [id number] [facility] 2023-05-10 11:00:00 2023-05-10 11:00:00 Outpatient DHARMESH MCDONALD [facility] [id number] [facility] 2023-05-03 11:23:35 2023-05-03 11:23:35 Outpatient [facility] [id number] Marty Larsen 2023-05-01 00:00:00 2023-05-01 00:00:00 Telephone Nicole Wooten 1.2840.114 350.1.13.10 4.2.7.2.686 [id number] [facility] 2023-05-01 00:00:00 2023-05-01 00:00:00 Telephone Nicole Wooten [facility] 1.2840.114 350.1.13.10 4.2.7.2.686 [id number] [facility] 2023-05-01 00:00:00 2023-05-01 00:00:00 Telephone Nicole Wooten [facility] 1.2840.114 350.1.13.10 4.2.7.2.686 [id number] [facility] 2023-04-30 11:15:20 2023-04-30 23:59:00 Outpatient R KAYLA GRIMES [facility] [id number] [facility] 2023-04-30 11:15:20 2023-04-30 23:59:00 Hospital Encounter Kayla Grimes ON LICENSE OF [facility] 1.2.840.114 350.1.13.10 4.2.7.2.686 [id number] [facility] 2023-04-30 10:20:00 2023-04-30 11:39:43 [facility] 1.2840.114 350.1.13.10 4.2.7.2.686 [id number] [facility] 2023-04-30 11:14:49 2023-04-30 11:14:49 Hospital Encounter Kayla Grimes ON LICENSE OF [facility] 1.2840.114 350.1.13.10 4.2.7.2.686 [id number] [facility] 2023-04-30 08:58:42 2023-04-30 08:58:42 Outpatient [facility] [id number] Marty Arriola Chava 2023-04-28 17:00:00 2023-04-28 17:00:00 Outpatient R [facility] [id number] [facility] 2023-04-25 14:30:00 2023-04-25 14:30:00 Outpatient R [facility] [id number] [facility] 2023-04-24 00:00:00 2023-04-24 00:00:00 Telephone Tylor Newman [facility] 1.2.840.114 350.1.13.10 4.2.7.2.686 [id number] [facility] 2023-04-24 00:00:00 2023-04-24 00:00:00 Telephone Nicole Wooten 1.2840.114 350.1.13.10 4.2.7.2.686 [id number] [facility] 2023-04-23 15:40:00 2023-04-23 16:11:36 Outpatient R KAYLA GRIMES [facility] [id number] [facility] 2023-04-23 15:40:00 2023-04-23 16:11:36 Office Visit Kayla Grimes ON LICENSE OF [facility] 1.0.114 350.1.13.10 4.2.7.2.686 [id number] [facility] 2023-04-17 00:00:00 2023-04-17 00:00:00 Telephone Nicole Wooten 1.0.114 350.1.13.10 4.2.7.2.686 [id number] [id number] [facility] 2023-04-16 13:21:44 2023-04-16 13:21:44 Outpatient [facility] [id number] Marty Larsen 2023-04-16 00:00:00 2023-04-16 00:00:00 [facility] 1..114 350.1.13.10 4.2.7.2.686 [id number] 044 [id number] [facility] 2023-04-16 00:00:00 2023-04-16 00:00:00 Refill Kayla Grimes [facility] 1.840.114 350.1.13.10 4.2.7.2.686 [id number] 044 [id number] [facility] 2023-04-16 00:00:00 2023-04-16 00:00:00 Telephone Nicole Wooten 1.2.840.114 350.1.13.10 4.2.7.2.686 [id number] [facility] 2023-04-12 11:00:00 2023-04-12 11:00:00 Outpatient KAYLA CLANCY [facility] [id number] [facility] 2023-04-10 13:40:00 2023-04-10 13:40:00 Outpatient R KAYLA GRIMES [facility] [id number] [facility] 2023-04-04 08:41:26 2023-04-04 08:41:26 Outpatient [facility] [id number] Martypam Larsen 2023-03-13 08:40:00 2023-03-13 08:40:00 Outpatient R KAYLA GRIMES [facility] [id number] [facility] 2023-03-11 00:00:00 2023-03-11 00:00:00 Patient Secure Msg Kayla Grimes M ON LICENSE OF [facility] MED[facility] OFF[facility] BU[facility] 1.2.840.114 350.1.13.10 4.2.7.2.686 [id number] 044 [id number] [facility] 2023-03-11 00:00:00 2023-03-11 00:00:00 Tylor Camacho [facility] 1..840.114 350.1.13.10 4.2.7.2.686 [id number] [facility] 2023-03-07 08:47:58 2023-03-07 08:47:58 Outpatient [facility] [id number] Marty Larsen 2023-01-03 14:00:00 2023-01-03 14:52:06 Outpatient EDILIA DILLARD [facility] [id number] [facility] 2023-01-03 14:00:00 2023-01-03 14:52:06 Office Visit Tylor Newman Brooke [facility] 1..840.114 350.1.13.10 4.2.7.2.686 [id number] [facility] 2023-01-02 13:00:00 2023-01-02 13:00:00 Outpatient R [facility] [id number] [facility] 2023-01-02 10:30:00 2023-01-02 10:30:00 Outpatient R [facility] [id number] [facility] 2022-12-31 00:00:00 2022-12-31 00:00:00 Refill [facility] 1..840.114 350.1.13.10 4.2.7.2.686 [id number] [facility] 2022-12-30 00:00:00 2022-12-30 00:00:00 Refill [facility] 1..840.114 350.1.13.10 4.2.7.2.686 [id number] 044 [id number] [facility] 2022-12-28 12:45:00 2022-12-28 12:45:00 Outpatient R SULMA PEREZ [facility] [id number] [facility] 2022-12-26 11:20:00 2022-12-26 11:20:00 Outpatient R KAYLA GRIMES [facility] [id number] [facility] 2022-12-20 00:00:00 2022-12-20 00:00:00 Orders Only Doctor Unassigned, [place] [facility] 1..840.114 350.1.13.10 4.2.7.2.686 [id number] [id number] [facility] 2022-12-17 00:00:00 2022-12-17 00:00:00 Patient Secure Msg ySdney Kayla Geeta ON LICENSE OF [facility] 1.2.840.114 350.1.13.10 4.2.7.2.686 [id number] 044 [id number] [facility] 2022-12-17 00:00:00 2022-12-17 00:00:00 Patient Outreach Sheila Magallanes ON LICENSE OF [facility] MED[facility] 1.2.840.114 350.1.13.10 4.2.7.2.686 [id number] 044 [id number] [facility] 2022-12-13 00:00:00 2022-12-13 00:00:00 Telephone Kayla Grimes Geeta ON LICENSE OF [facility] 1.2.840.114 350.1.13.10 4.2.7.2.686 [id number] 044 [id number] [facility] 2022-12-12 15:20:00 2022-12-12 16:04:33 Outpatient R KAYLA GRIMES [facility] [id number] [facility] 2022-12-12 15:20:00 2022-12-12 16:04:33 Office Visit Kayla Grimes Geeta ON LICENSE OF [facility] 1.2.840.114 350.1.13.10 4.2.7.2.686 [id number] 044 [id number] [facility] 2022-12-11 17:05:00 2022-12-11 20:26:00 Emergency X IVY THAKKAR [facility] ERT [id number] [facility] 2022-12-11 17:05:00 2022-12-11 20:26:00 Emergency Ivy Thakkar F [facility] 1.2.840.114 350.1.13.10 4.2.7.2.686 [id number] 084 [id number] [facility] 2022-12-11 09:30:00 2022-12-11 09:30:00 Outpatient R [facility] [id number] [facility] 2022-12-08 15:30:00 2022-12-08 18:50:00 Emergency X AMARILIS BANUELOS [facility] ERT [id number] [facility] 2022-12-08 15:30:00 2022-12-08 18:50:00 Emergency Amarilis Banuelos G [facility] 1.2.840.114 350.1.13.10 4.2.7.2.686 [id number] [facility] 2022-12-06 00:00:00 2022-12-06 00:00:00 Patient Secure Alena Long ON LICENSE OF [facility] 1.2840.114 350.1.13.10 4.2.7.2.686 [id number] 044 [id number] [facility] 2022-12-06 00:00:00 2022-12-06 00:00[facility] 1.2.840.114 350.1.13.10 4.2.7.2.686 [id number] [id number] [facility] 2022-12-05 15:30:00 2022-12-05 23:59:00 Hospital Encounter [facility] 1.2.840.114 350.1.13.10 4.2.7.2.686 [id number] [facility] 2022-12-05 13:30:00 2022-12-05 15:18:12 [facility] PROFESSIO [facility]AL BUILDING 1.2.840.114 350.1.13.10 4.2.7.2.686 [id number] [facility] 2022-12-05 10:20:00 2022-12-05 10:20:00 Office Visit Kayla Grimes [facility] TEDDY BALTA[facility]AR?[facility] 1.2840.114 350.1.13.10 4.2.7.2.686 [id number] [facility] 2022-12-05 10:20:00 2022-12-05 10:16:52 Outpatient R KAYLA GRIMES [facility] [id number] [facility] 2022-12-05 08:45:00 2022-12-05 08:45:00 Outpatient R PRIYANKA RIVERA [facility] [id number] [facility] 2022-12-05 00:00:00 2022-12-05 00:00:00 Orders Only Doctor Unassigned, [place] [facility] 1.2840.114 350.1.13.10 4.2.7.2.686 [id number] [id number] [facility] 2022-12-04 00:00:00 2022-12-04 00:00:00 Telephone Jena Veloz 1.2840.114 350.1.13.10 4.2.7.2.686 [id number] [facility] 2022-11-27 15:30:00 2022-11-27 16:29:39 Outpatient R KADEN ANDREW [facility] [id number] [facility] 2022-11-27 00:00:00 2022-11-27 00:00:00 Orders Only Doctor Unassigned, Coaling [facility] 1.2840.114 350.1.13.10 4.2.7.2.686 [id number] [id number] [facility] 2022-11-21 00:00:00 2022-11-21 00:00:00 Patient Secure Msg Doctor Unassigned, Coaling [facility] 1.2.840.114 350.1.13.10 4.2.7.2.686 [id number] [facility] 2022-11-20 08:00:00 2022-11-20 08:00:00 Outpatient BERNARDO ACE [facility] [id number] [facility] 2022-11-14 00:00:00 2022-11-14 00:00:00 Telephone Alena Min [facility] MEDICAL OFFICE BUILDING 1.2.840.114 350.1.13.10 4.2.7.2.686 [id number] 044 [id number] [facility] 2022-11-13 16:53:00 2022-11-13 20:55:00 Emergency X GAURAV ESPARZA [facility] ERT [id number] [facility] 2022-11-13 16:53:00 2022-11-13 20:55:00 Emergency Gaurav Esparza T [facility] 1..840.114 350.1.13.10 4.2.7.2.686 [id number] [facility] 2022-11-13 08:00:00 2022-11-13 08:15:00 Certified Ethical Hacker Visit Lab, Alena Suarez [facility] MED[facility] OFF[facility] BUILDING 1.2.840.114 350.1.13.10 4.2.7.2.686 [id number] [facility] 2022-11-13 08:00:00 2022-11-13 08:00:00 Outpatient ALENA PENNINGTON [facility] [id number] [facility] 2022-11-13 00:00:00 2022-11-13 00:00:00 Telephone Alena Min [facility] 1.2840.114 350.1.13.10 4.2.7.2.686 [id number] [facility] 2022-11-12 12:00:00 2022-11-12 12:00:00 Outpatient R [facility] [id number] [facility] 2022-11-12 00:00:00 2022-11-12 00:00:00 Tele[facility] MED[facility] BUILD[facility] 1.2840.114 350.1.13.10 4.2.7.2.686 [id number] [id number] [facility] 2022-11-12 00:00:00 2022-11-12 00:00:00 Telephone [facility] MED[facility] BU[facility] 1.2840.114 350.1.13.10 4.2.7.2.686 [id number] [id number] [facility] 2022-11-12 00:00:00 2022-11-12 00:00:00 Telephone Alena [facility] BU[facility] 1.2840.114 350.1.13.10 4.2.7.2.686 [id number] 044 [id number] [facility] 2022-11-09 00:00:00 2022-11-09 00:00:00 Telephone [facility] 1.2840.114 350.1.13.10 4.2.7.2.686 [id number] 044 [id number] [facility] 2022-11-07 00:00:00 2022-11-07 00:00:00 Telephone [facility]ena [facility] MED[facility] 1.2840.114 350.1.13.10 4.2.7.2.686 [id number] 044 [id number] [facility] 2022-11-06 11:00:00 2022-11-06 12:34:42 Outpatient R ALENA MIN [facility] [id number] [facility] 2022-11-06 11:00:00 2022-11-06 12:34:42 Office Visit Alena Min [facility] MED[facility] BUILD[facility] 1..840.114 350.1.13.10 4.2.7.2.686 [id number] [id number] [facility] 2022-11-06 00:00:00 2022-11-06 00:00:00 Orders Only Doctor Unassigned, Coaling [facility] 1.840.114 350.1.13.10 4.2.7.2.686 [id number] [facility] 2022-11-02 15:30:00 2022-11-02 15:30:00 Outpatient R ALENA MIN [facility] [id number] [facility] 2022-10-22 00:00:00 2022-10-22 00:00:00 Telephone Alena Min [facility] MED[facility] OFF[facility] BUILD[facility] 1..840.114 350.1.13.10 4.2.7.2.686 [id number] [facility] 2022-08-21 09:30:00 2022-08-21 09:30:00 Outpatient R ALENA MIN [facility] [id number] [facility] 2022-08-07 13:00:00 2022-08-07 13:48:52 Outpatient R LUIS MIGUELALENA Calderon [facility] [id number] [facility] 2022-08-07 13:00:00 2022-08-07 13:48:52 Office Visit Alena Min [facility] MED[facility] OFF[facility] BUILD[facility] 1..840.114 350.1.13.10 4.2.7.2.686 [id number] [facility] 2022-08-07 00:00:00 2022-08-07 00:00:00 Telephone Alena Min [facility] 1.2.840.114 350.1.13.10 4.2.7.2.686 [id number] [facility] 2021-01-07 13:07:00 2021-01-07 13:25:00 Emergency Thi [facility] 1.2.840.114 350.1.13.10 4.2.7.2.686 [id number] 2021-01-07 13:07:00 2021-01-07 13:25:00 Emergency Thi [facility] 1.2.840.114 350.1.13.10 4.2.7.2.686 [id number] [facility] 2021-01-07 12:59:00 2021-01-07 12:59:00 Emergency X [facility] ERT [id number] [facility] 2021-01-07 00:00:00 2021-01-07 00:00:00 Orders Only Doctor Unassigned, Coaling [facility] 1.2.840.114 350.1.13.10 4.2.7.2.686 [id number] 2021-01-07 00:00:00 2021-01-07 00:00:00 Orders Only Doctor Unassigned, Coaling [facility] 1.2.840.114 350.1.13.10 4.2.7.2.686 [id number] [id number] [facility] 2020-12-28 12:12:00 2020-12-28 14:45:00 Emergency Alvarez [facility] 1.2.840.114 350.1.13.10 4.2.7.2.686 [id number] 2020-12-28 12:12:00 2020-12-28 14:45:00 Emergency Alvarez [facility] 1.2.840.114 350.1.13.10 4.2.7.2.686 [id number] [facility] 2020-12-28 11:59:00 2020-12-28 11:59:00 Emergency X [facility] ERT [id number] [facility] 2020-12-10 06:50:00 2020-12-10 15:30:00 [facility] 1.2.840.114 350.1.13.10 4.2.7.2.686 [id number] 2020-12-10 06:50:00 2020-12-10 15:30:[address] [facility] 1.2.840.114 350.1.13.10 4.2.7.2.686 [id number] [facility] 2020-12-10 06:47:00 2020-12-10 06:47:00 Emergency X [facility] ERT [id number] [facility] 2020-12-10 00:00:00 2020-12-10 00:00:00 Orders Only Doctor Unassigned, Coaling [facility] 1.2.840.114 350.1.13.10 4.2.7.2.686 [id number] 2020-12-10 00:00:00 2020-12-10 00:00:00 Orders Only Doctor Unassigned, Coaling [facility] 1.2.840.114 350.1.13.10 4.2.7.2.686 [id number] [facility] 2020-11-21 08:03:00 2020-11-21 08:39:00 Emergency Daljit Velasco [facility] 1.2.840.114 350.1.13.10 4.2.7.2.686 [id number] 2020-11-21 08:03:00 2020-11-21 08:39:00 Emergency Daljit Velasco [facility] 1.2.840.114 350.1.13.10 4.2.7.2.686 [id number] [facility] 2020-11-21 08:03:00 2020-11-21 08:03:00 Emergency X DALJIT VELASCO [facility] ERT [id number] [facility] Results Test Description Test Time Test Comments Results Result Co mments Source [facility] Molecular [id number] 18:07:45* Test Item Value Reference Range Interpretation Comme nts POCT Molecular FluA (test co de = 79900-1) Negative Negative POCT Molecular FluB (test co de = 30491-0) Negative Negative Lab Interpretation (test cod e = 53123-5) Normal [facility] MOLECULAR [id number] 18:00:56* Test Item Value Reference Range Interpretation Comme nts POCT Molecular Strep (test c ode = 82863-6) Negative Negative Lab Interpretation (test cod e = 01792-6) [facility] [id number] 23:40:20ORDERING PHYSICIAN: ZOHRA PRATER HISTORY: 28 years old, Male, foreign body sensation in throat after taking3 pills , feeling of something stuck in throat TECHNIQUE: XR NECK SOFT TISSUE COMPARISON: none FINDINGS: Prevertebral soft tissues are normal. No radiopaque foreign bodyidentified. Bones appear intact.[facility] 2 [id number] 23:03:32EXAM: XR CHEST 2 VW COMPARISON: 12/08/2022 HISTORY: foreign body senation in throat , s/p swallowing p ills without anyliquidsUnCH[facility] CERVICAL SPINE 2 VW 2023-07-05 16:43:54EXAM: XR CERVICAL SPINE 2 VW HISTORY: neck pain COMPARISON: Cervical spine radiograph dated 03/24/2015[facility]. METABOLIC PANEL (06300)2022-12-12 00:37:54* Test Item Value Reference Range Interpretation Comme nts NA (test code = 9186972590) 142 mmol/L 135-145 K (test code = 0435831434) 4.1 mmol/L 3.5-5.0 CL (test code = 8638903023) 105 mmol/L 98-108 CO2 TOTAL (test code = 6263407585) 26 mmol/L 23-31 AGAP (test code = 1281793609) 11 2-16 BUN (test code = 0390536296) 15 mg/dL 7-23 GLUCOSE (test code = 3209279566) 97 mg/dL 70-110 CREATININE (test code = 2855374455) 1.03 mg/dL 0.60-1.25 TOTAL BILI (test code = 9212156019) 0.7 mg/dL 0.1-1.1 CALCIUM (test code = 1395986305) 10.0 mg/dL 8.6-10.6 T PROTEIN (test code = 3779147817) 8.3 g/dL 6.3-8.2 H ALBUMIN (test code = 6277742875) 5.1 g/dL 3.5-5.0 H ALK PHOS (test code = 8889241992) 66 U/L 34-122 ALTv (test code = 1742-6) 44 U/L 5-50 AST(SGOT) (test code = 3581906023) 30 U/L 13-40 eGFR (test code = 4114661135) 85.4 mL/min/1.73m2 DESIREE (test code = DESIREE) [...] imaging tests). Lab Interpretation (test code = 00733-0) Abnormal [facility] WITH [id number] 00:12:33* Test Item Value Reference Range Interpretation Comme nts WBC (test code = 6690-2) 7.70 See_Comment [Automated Your Dollar Matters] The system which generated this result transmitted reference range: 4.20 - 10.70 10*3/?L. The reference range was not used to interpret this result as normal/abnormal. RBC (test code = 789-8) 5.28 See_Comment [Automated [employer]] The system which generated this result transmitted [...] g/dL 31.2-35.0 H RDW-SD (test code = 96333-7) 38.6 fL 38.5-51.6 RDW-CV (test code = 788-0) 12.0 % 12.1-15.4 L PLT (test code = 777-3) 328 See_Comment [Automated messa ge] The system which generated this result transmitted reference range: 150 - 328 10*3/?L. The reference range was not used to interpret this result as normal/abnormal. MPV (test code = 40746-2) 9.4 fL 9.8-13.0 L NRBC/100 WBC (test code = 2298047380) 0.0 See_Comment [Automated me ssage] The system which generated this result transmitted reference range: 0.0 - 10.0 /100 WBCs. The reference range was not used to interpret this result as normal/abnormal. NRBC x10^3 (test code = 9904432460) See_Comment [Automated messa ge] The system which generated this result transmitted reference range: 10*3/?L. The reference range was not used to interpret this result as normal/abnormal. GRAN MAT (NEUT) % (test code = 770-8) 69.1 % IMM GRAN % (test code = 5188775700) 0.30 % LYMPH % (test code = 736-9) 23.8 % MONO % (test code = 5905-5) 5.8 % EOS % (test code = 713-8) 0.5 % BASO % (test code = 706-2) 0.5 % GRAN MAT x10^3(ANC) (test code = 7204789171) 5.32 10*3/uL 1.99-6.95 IMM GRAN x10^3 (test code = 4405150300) 0.00-0.06 LYMPH x10^3 (test code = 731-0) 1.83 10*3/uL 1.09-3.23 MONO x10^3 (test code = 742-7) 0.45 10*3/uL 0.36-1.02 EOS x10^3 (test code = 711-2) 0.04 10*3/uL 0.06-0.53 L BASO x10^3 (test code = 704-7) 0.04 10*3/uL 0.01-0.09 Lab Interpretation (test code = 90571-1) Abnormal [facility] STIMULATING [id number] 22:27:19 * Test Item Value Reference Range Interpretation Comme nts TSH (test code = 1127553002) 1.74 See_Comment [Automated messa ge] The system which generated this result transmitted reference range: 0.45 - 4.70 mIU/L. The reference range was not used to interpret this result as normal/abnormal. Lab Interpretation (test code = 46098-0) Normal [facility] Hospital[facility] [id number] 22:08:38* Test Item Value Reference Range Interpretation Comme nts TROPONIN I (test code = 8316469080) 0.004 ng/mL <=0.034 DESIREE (test code = [...] of biotin. Lab Interpretation (test code = 17123-7) Normal [facility]2023-06-03 22:05:21* Test Item Value Reference Range Interpretation Comme nts LIPASE (test code = 0994283008) 213 U/L 0-220 Lab Interpretation (test cod e = 12274-6) Normal [facility]2023-[facility]-03 22:05:16* Test Item Value Reference Range Interpretation Comme nts MAGNESIUM (test code = 4014955225) 1.7 mg/dL 1.7-2.4 Lab Interpretation (test cod e = 43011-7) Normal [facility]. METABOLIC PANEL (07473)2022-12-08 22:05:06* Test Item Value Reference Range Interpretation Comme nts NA (test code = 4848539179) 140 mmol/L 135-145 K (test code = 8974744619) 3.9 mmol/L 3.5-5.0 CL (test code = 6733561551) 105 mmol/L 98-108 CO2 TOTAL (test code = 2789069981) 26 mmol/L 23-31 AGAP (test code = 5037561340) 9 2-16 BUN (test code = 2072511523) 14 mg/dL 7-23 GLUCOSE (test code = 8821956766) 96 mg/dL 70-110 CREATININE (test code = 9962832955) 0.90 mg/dL 0.60-1.25 TOTAL BILI (test code = 5790908576) 0.8 mg/dL 0.1-1.1 CALCIUM (test code = 2185421825) 9.8 mg/dL 8.6-10.6 T PROTEIN (test code = 5346113083) 7.9 g/dL 6.3-8.2 ALBUMIN (test code = 4814496972) 4.9 g/dL 3.5-5.0 ALK PHOS (test code = 6172827055) 61 U/L 34-122 ALTv (test code = 1742-6) 39 U/L 5-50 AST(SGOT) (test code = 0011521664) 30 U/L 13-40 eGFR (test code = 7663908778) 99.8 mL/min/1.73m2 DESIREE (test code = DESIREE) [...] or urine or abnormalities in imaging tests). [facility] Hospital[facility]-[id number]:41:43* Test Item Value Reference Range Interpretation Comments D-DIMER (test code = 3461015682) See_Comment [Automated message] The system which generated [...] a diagnosis. Lab Interpretation (test code = 37702-1) [id number] 21:26:36* Test Item Value Reference Range Interpretation Comme nts WBC (test code = 6690-2) 6.69 See_Comment [Automated [employer]] The system which generated this result transmitted reference range: 4.20 - 10.70 10*3/?L. The reference range was not used to interpret this result as normal/abnormal. RBC (test code = 789-8) 5.24 See_Comment [Automated [employer]] The system which generated this result transmitted [...] g/dL 31.2-35.0 H RDW-SD (test code = 57061-0) 38.9 fL 38.5-51.6 RDW-CV (test code = 788-0) 12.1 % 12.1-15.4 PLT (test code = 777-3) 325 See_Comment [Automated messa ge] The system which generated this result transmitted reference range: 150 - 328 10*3/?L. The reference range was not used to interpret this result as normal/abnormal. MPV (test code = 02633-9) 9.4 fL 9.8-13.0 L NRBC/100 WBC (test code = 1378797825) 0.0 See_Comment [Automated [employer] ssage] The system which generated this result transmitted reference range: 0.0 - 10.0 /100 WBCs. The reference range was not used to interpret this result as normal/abnormal. NRBC x10^3 (test code = 4918995073) See_Comment [Automated [employer]] The system which generated this result transmitted reference range: 10*3/?L. The reference range was not used to interpret this result as normal/abnormal. GRAN MAT (NEUT) % (test code = 770-8) 57.8 % IMM GRAN % (test code = 3645517052) 0.30 % LYMPH % (test code = 736-9) 33.8 % MONO % (test code = 5905-5) 6.9 % EOS % (test code = 713-8) 0.6 % BASO % (test code = 706-2) 0.6 % GRAN MAT x10^3(ANC) (test code = 6679467733) 3.87 10*3/uL 1.99-6.95 IMM GRAN x10^3 (test code = 9426664778) 0.00-0.06 LYMPH x10^3 (test code = 731-0) 2.26 10*3/uL 1.09-3.23 MONO x10^3 (test code = 742-7) 0.46 10*3/uL 0.36-1.02 EOS x10^3 (test code = 711-2) 0.04 10*3/uL 0.06-0.53 L BASO x10^3 (test code = 704-7) 0.04 10*3/uL 0.01-0.09 Lab Interpretation (test code = 71139-3) Abnormal [facility] METABOLIC PANEL (NA, K, CL, CO2, GLUCOSE, BUN, CREATININE, CA)2022-11-13 23:40:36* Test Item Value Reference Range Interpretation Comme nts NA (test code = 9600520382) 140 mmol/L 135-145 K (test code = 1858841009) 4.1 mmol/L 3.5-5.0 CL (test code = 5916406129) 103 mmol/L 98-108 CO2 TOTAL (test code = 2693828938) 26 mmol/L 23-31 AGAP (test code = 0224829879) 11 2-16 BUN (test code = 9199474761) 14 mg/dL 7-23 GLUCOSE (test code = 2693867712) 106 mg/dL 70-110 CREATININE (test code = 7788569590) 0.89 mg/dL 0.60-1.25 CALCIUM (test code = 2669893105) 9.7 mg/dL 8.6-10.6 eGFR (test code = 1247210820) 101.1 mL/min/1.73m2 DESIREE (test code = DESIREE) [...] or urine or abnormalities in imaging tests). [facility] WITH [id number] 23:33:18* Test Item Value Reference Range Interpretation Comme nts WBC (test code = 6690-2) 9.32 See_Comment [Automated [employer]] The system which generated this result transmitted reference range: 4.20 - 10.70 10*3/?L. The reference range was not used to interpret this result as normal/abnormal. RBC (test code = 789-8) 5.42 See_Comment [Automated [employer]] The system which generated this result transmitted [...] 35.0 g/dL 31.2-35.0 RDW-SD (test code = 58691-9) 37.6 fL 38.5-51.6 L RDW-CV (test code = 788-0) 12.2 % 12.1-15.4 PLT (test code = 777-3) 314 See_Comment [Automated [employer]] The system which generated this result transmitted reference range: 150 - 328 10*3/?L. The reference range was not used to interpret this result as normal/abnormal. MPV (test code = 01122-8) 9.6 fL 9.8-13.0 L NRBC/100 WBC (test code = 9714005697) 0.0 See_Comment [Automated me ssage] The system which generated this result transmitted reference range: 0.0 - 10.0 /100 WBCs. The reference range was not used to interpret this result as normal/abnormal. NRBC x10^3 (test code = 3902815266) See_Comment [Automated messa ge] The system which generated this result transmitted reference range: 10*3/?L. The reference range was not used to interpret this result as normal/abnormal. GRAN MAT (NEUT) % (test code = 770-8) 74.5 % IMM GRAN % (test code = 1211407372) 0.10 % LYMPH % (test code = 736-9) 18.1 % MONO % (test code = 5905-5) 6.5 % EOS % (test code = 713-8) 0.3 % BASO % (test code = 706-2) 0.5 % GRAN MAT x10^3(ANC) (test code = 8282496596) 6.93 10*3/uL 1.99-6.95 IMM GRAN x10^3 (test code = 2654790432) 0.00-0.06 LYMPH x10^3 (test code = 731-0) 1.69 10*3/uL 1.09-3.23 MONO x10^3 (test code = 742-7) 0.61 10*3/uL 0.36-1.02 EOS x10^3 (test code = 711-2) 0.03 10*3/uL 0.06-0.53 L BASO x10^3 (test code = 704-7) 0.05 10*3/uL 0.01-0.09 Lab Interpretation (test code = 08691-6) Abnormal [facility] URINALYSIS W SPECIFIC [id number] 16:30:00* Test Item Value Reference Range Interpretation [...] 3267) CLEAR Lab Interpretation (test code = 87236-9) Abnormal [facility] URINALYSIS W SPECIFIC [id number] 16:30:00* Test Item Value Reference Range Interpretation [...] 3267) CLEAR Lab Interpretation (test code = 89916-6) Abnormal [facility] URINALYSIS W SPECIFIC [id number] 16:30:00* Test Item Value Reference Range Interpretation [...] 3267) CLEAR Lab Interpretation (test code = 58581-7) [facility]normal [facility] [id number] 18:54:58CT Abdomen and Pelvis with intravenous contrast. [...] is noted, otherwise no acuteintra-abdominal or pelvic abnormalities.[facility] PzodozTNBHSBQEHT1016-01-18 18:02:33* Test Item Value Reference Range Interpretation Comme nts APPEARANCE (test code = 1545894302) Clear Clear COLOR (test code = 7978172721) Yellow Yellow PH (test code = 9297385187) 4.8-8.0 SP GRAVITY (test code = 3216250328) 1.003-1.030 GLU U QUAL (test code = 0978259281) Normal Normal BLOOD (test code = 3951667540) Negative Negative KETONES (test code = 0385905995) Negative Negative PROTEIN (test code = 2887-8) Negative Negative UROBILIN (test code = 9027711914) Normal Normal BILIRUBIN (test code = 7821160366) Negative Negative NITRITE (test code = 9032029792) Negative Negative LEUK MITALI (test code = 3615293030) Negative Negative RBC/HPF (test code = 0411695125) See_Comment [Automated [employer]] The system which generated this result transmitted reference range: 0 - 3 HPF. The reference range was not used to interpret this result as normal/abnormal. WBC/HPF (test code = 1463124273) See_Comment [Automated [employer]] The system which generated this result transmitted reference range: 0 - 5 HPF. The reference range was not used to interpret this result as normal/abnormal. BACTERIA (test code = 1199322162) Negative Negative MUCOUS (test code = 3381946118) Slight Negative LPF A Lab Interpretation (test code = 15496-2) Abnormal [facility]. METABOLIC PANEL (62747)2020-12-28 17:57:13* Test Item Value Reference Range Interpretation Comme nts NA (test code = 1276859191) 142 mmol/L 135-145 K (test code = 5340352205) 4.5 mmol/L 3.5-5.0 CL (test code = 9300558458) 104 mmol/L 98-108 CO2 TOTAL (test code = 1325938503) 29 mmol/L 23-31 AGAP (test code = 1429801825) 2-16 BUN (test code = 1550009455) 13 mg/dL 7-23 GLUCOSE (test code = 8238142390) 101 mg/dL 70-110 CREATININE (test code = 5513140324) 0.92 mg/dL 0.60-1.25 TOTAL BILI (test code = 9933301264) 0.5 mg/dL 0.1-1.1 CALCIUM (test code = 8741578138) 9.9 mg/dL 8.6-10.6 T PROTEIN (test code = 9898771445) 8.0 g/dL 6.3-8.2 ALBUMIN (test code = 2306227049) 4.8 g/dL 3.5-5.0 ALK PHOS (test code = 5986480508) 61 U/L 34-122 ALTv (test code = 1742-6) 47 U/L 5-50 AST(SGOT) (test code = 1996592665) 37 U/L 13-40 eGFR (test code = 7603724977) mL/min/1.73m2 DESIREE (test code = DESIREE) Association [...] or urine or abnormalities in imaging tests). [facility] 17:56:33* Test Item Value Reference Range Interpretation Comme nts LIPASE (test code = 9715661534) 328 U/L 0-220 H Lab Interpretation (test cod e = 64866-3) Abnormal [facility] WITH [id number] 17:51:55* Test Item Value Reference Range Interpretation Comme nts WBC (test code = 6690-2) See_Comment [Automated messa ge] The system which generated this result transmitted reference range: 4.20 - 10.70 10*3/?L. The reference range was not used to interpret this result as normal/abnormal. RBC (test code = 789-8) See_Comment [Automated messa ge] The system which [...] 34.3 g/dL 31.2-35.0 RDW-SD (test code = 54969-8) 38.7 fL 38.5-51.6 RDW-CV (test code = 788-0) 12.2 % 12.1-15.4 PLT (test code = 777-3) See_Comment [Automated messa ge] The system which generated this result transmitted reference range: 150 - 328 10*3/?L. The reference range was not used to interpret this result as normal/abnormal. MPV (test code = 66330-1) 9.3 fL 9.8-13.0 L NRBC/100 WBC (test code = 6230229755) See_Comment [Automated [employer] ssage] The system which generated this result transmitted reference range: 0.0 - 10.0 /100 WBCs. The reference range was not used to interpret this result as normal/abnormal. NRBC x10^3 (test code = 4942387577) <0.01 See_Comment [Automated messa ge] The system which generated this result transmitted reference range: 10*3/?L. The reference range was not used to interpret this result as normal/abnormal. GRAN MAT (NEUT) % (test code = 770-8) 53.5 % IMM GRAN % (test code = 0452766317) 0.20 % LYMPH % (test code = 736-9) 34.2 % MONO % (test code = 5905-5) 9.6 % EOS % (test code = 713-8) 2.1 % BASO % (test code = 706-2) 0.4 % GRAN MAT x10^3(ANC) (test code = 5504824258) 2.56 10*3/uL 1.99-6.95 IMM GRAN x10^3 (test code = 9350499406) <0.03 0.00-0.06 LYMPH x10^3 (test code = 731-0) 1.64 10*3/uL 1.09-3.23 MONO x10^3 (test code = 742-7) 0.46 10*3/uL 0.36-1.02 EOS x10^3 (test code = 711-2) 0.10 10*3/uL 0.06-0.53 BASO x10^3 (test code = 704-7) <0.03 0.01-0.09 Lab Interpretation (test code = 23911-9) [facility]normal [facility] 15:42:57* Test Item Value Reference Range Interpretation Comme nts APTT Patient (test code = 3173-2) See_Comment [Automated message] The system which generated this result transmitted reference range: 23 - 38 Seconds. The reference range was not used to interpret this result as normal/abnormal. DESIREE (test code = DESIREE) The [facility] patient population mean normal value for aPTT is 30 seconds. Lab Interpretation (test code = 67260-2) Normal [facility] HospitalProthrombin Time (PT) / [id number] 15:40:16 * Test Item Value Reference Range Interpretation Comme nts PROTIME PATIENT (test code = 5964-2) See_Comment [Automated messa ge] The system which generated this result transmitted reference range: 12.0 - 14.7 Seconds. The reference range was not used to interpret this result as normal/abnormal. INR (test code = 6301-6) Normal INR <1.1; Warfarin Therapeutic range 2.0 to 3.0 or 2.5 to 3.5, depending upon the indications. Lab Interpretation (test code = 45415-0) Normal [facility] 14:32:20* Test Item Value Reference Range Interpretation Comme nts APPEARANCE (test code = 0132481130) Hazy Clear A COLOR (test code = 3027497509) Shellie Yellow A PH (test code = 5810658281) 4.8-8.0 SP GRAVITY (test code = 4355604526) 1.003-1.030 H GLU U QUAL (test code = 5400888241) Normal Normal BLOOD (test code = 7312146230) Negative Negative KETONES (test code = 3290168532) Negative Negative PROTEIN (test code = 2887-8) Negative Negative UROBILIN (test code = 0933664039) Normal Normal BILIRUBIN (test code = 2068597077) Negative Negative NITRITE (test code = 7743495908) Negative Negative LEUK MITALI (test code = 5536918817) Negative Negative RBC/HPF (test code = 0115123756) See_Comment [Automated [employer]] The system which generated this result transmitted reference range: 0 - 3 HPF. The reference range was not used to interpret this result as normal/abnormal. WBC/HPF (test code = 2078481037) See_Comment [Automated [employer]] The system which generated this result transmitted reference range: 0 - 5 HPF. The reference range was not used to interpret this result as normal/abnormal. BACTERIA (test code = 5010504763) Few Negative A MUCOUS (test code = 0271953431) Marked Negative LPF A SQ EPITH (test code = 3494042963) <1 HPF Lab Interpretation (test code = 17524-8) Abnormal [facility] (IMMUNOASSAY) - COMPREHENSIVE DRUG [id number] 14:30:54* Test Item Value Reference Range Interpretation Comme nts AMPHET (test code = 9965667904) Negative Negative REBECA U (test code = 0756121985) Negative Negative BENZO U (test code = 5660140946) Negative Negative Cocaine Metabolite (test code = 6135807056) Negative Negative METHADONE (test code = 2072584669) Negative Negative OPIATES (test code = 4306751977) Negative Negative PCP (test code = 8789048511) Negative Negative THC (test code = 3749150830) Presumptive Positive Negative A DESIREE (test code [...] legal testing). Lab Interpretation (test code = 59636-1) Abnormal [facility] HospitalSALICYLATE2021-06-05 13:41:52* Test Item Value Reference Range Interpretation Comme nts SALICYLATE (test code = 2013010218) <10 mg/L DESIREE (test code = DESIREE) Therapeutic Range: ? Analgesic and Antipyretic Use ? 20-100 mg/L ? ? Anti-Inflammatory Use ? 100-250 mg/L Toxic Range: ? Greater than 300 mg/L [facility]ACETAMINOPHEN2021-06-05 13:41:52* Test Item Value Reference Range Interpretation Comme nts ACETAMINOP (test code = 8698622527) <10.0 10.0-30.0 L DESIREE (test code = DESIREE) Toxic: Greater jurgen n 200 ug/mL @ 4 hour post ingestion or greater than 50 ug/mL @ 12 hour post ingestion Lab Interpretation (test code = 27589-1) Abnormal [facility]OVID[facility] (ID NOW RAPID TESTING)2020-12-10 13:13:08* Test Item Value Reference Range Interpretation Comme nts SARS-CoV-2 Rapid ID NOW (test code = 48829-2) Not Detected Not Detected DESIREE (test code = DESIREE) ID NOW COVID-19 As say is an isothermal nucleic acid amplification test intended for the qualitative detection of nucleic acid from SARS-CoV-2 viral RNA in nasopharyngeal (MANAGER STRATEGIC) specimens. It is used under Emergency Use [...] clinically indicated. Lab Interpretation (test code = 92436-5) Normal [facility] HospitalETHANOL2021-06-05 13:08:25* Test Item Value Reference Range Interpretation Comme nts ALCOHOL (test code = 6407831290) <10 mg/dL DESIREE (test code = DESIREE) <10 Bgwjkvua98-613 Toxic>100 Depression of POLYSOM TECH>400 Fatalities Reported [facility] HospitalLactic Acid Whole [id number] 12:41:49* Test Item Value Reference Range Interpretation Comme nts LACTIC ACID (test code = 2469494587) 1.89 mmol/L 0.50-2.20 Lab Interpretation (test cod e = 76048-6) Normal [facility] HospitalMAGNESIUM2021-06-05 12:38:27* Test Item Value Reference Range Interpretation Comme nts MAGNESIUM (test code = 8074599631) 1.7 mg/dL 1.7-2.4 Lab Interpretation (test cod e = 96289-1) Normal [facility] HospitalHep[facility] Function Panel (ALB, T.PRO, BILI T, BU/BC, ALT, AST, ALK PHOS)2020-12-10 12:38:07* Test Item Value Reference Range Interpretation Comme nts TOTAL BILI (test code = 1841357918) 0.8 mg/dL 0.1-1.1 BILI UNCON (test code = 2037154500) 0.6 mg/dL 0.1-1.1 BILI CONJ (test code = 8890943695) 0.0 mg/dL 0.0-0.3 T PROTEIN (test code = 2443839553) 8.4 g/dL 6.3-8.2 H ALBUMIN (test code = 1043541229) 5.2 g/dL 3.5-5.0 H ALK PHOS (test code = 2454206193) 69 U/L 34-122 ALTv (test code = 1742-6) 39 U/L 5-50 AST(SGOT) (test code = 6462098610) 36 U/L 13-40 Lab Interpretation (test cod e = 77707-8) Abnormal [facility] Metabolic Panel (NA, K, CL, CO2, GLUCOSE, BUN, CREATININE, CA)2020-12-10 12:37:47* Test Item Value Reference Range Interpretation Comme nts NA (test code = 0270395491) 141 mmol/L 135-145 K (test code = 0711829296) 3.7 mmol/L 3.5-5.0 CL (test code = 4338454640) 105 mmol/L 98-108 CO2 TOTAL (test code = 0778225132) 27 mmol/L 23-31 AGAP (test code = 5968537382) 2-16 BUN (test code = 2398941529) 19 mg/dL 7-23 GLUCOSE (test code = 4730879890) 128 mg/dL 70-110 H CREATININE (test code = 7016760502) 1.16 mg/dL 0.60-1.25 CALCIUM (test code = 2236064891) 9.6 mg/dL 8.6-10.6 eGFR (test code = 4371915554) mL/min/1.73m2 DESIREE (test code = DESIREE) Association [...] imaging tests). Lab Interpretation (test code = 11947-2) Abnormal [facility] HospitalLipase [id number] 12:37:47* Test Item Value Reference Range Interpretation Comme nts LIPASE (test code = 0391812025) 241 U/L 0-220 H Lab Interpretation (test cod e = 28830-1) Abnormal [facility] HospitalCBC with Ujfkzcsyivud0131-30-47 12:25:07* Test Item Value Reference Range Interpretation [...] 34.0 g/dL 31.2-35.0 RDW-SD (test code = 99974-4) 39.2 fL 38.5-51.6 RDW-CV (test code = 788-0) 12.3 % 12.1-15.4 PLT (test code = 777-3) See_Comment [Automated message] The system which generated this result transmitted reference range: 150 - 328 10*3/?L. The reference range was not used to interpret this result as normal/abnormal. MPV (test code = 65183-3) 9.3 fL 9.8-13.0 L NRBC/100 WBC (test code = 0213306275) See_Comment [Automated message] The system which generated this result transmitted reference range: 0.0 - 10.0 /100 WBCs. The reference range was not used to interpret this result as normal/abnormal. NRBC x10^3 (test code = 7260637622) <0.01 See_Comment [Automated message] The system which generated this result transmitted reference range: 10*3/?L. The reference range was not used to interpret this result as normal/abnormal. GRAN MAT (NEUT) % (test code = 770-8) 87.5 % IMM GRAN % (test code = 3811905049) 0.30 % LYMPH % (test code = 736-9) 5.2 % MONO % (test code = 5905-5) 6.4 % EOS % (test code = 713-8) 0.3 % BASO % (test code = 706-2) 0.3 % GRAN MAT x10^3(ANC) (test code = 0442631423) 12.14 10*3/uL 1.99-6.95 H IMM GRAN x10^3 (test code = 5580473080) 0.04 10*3/uL 0.00-0.06 LYMPH x10^3 (test code = 731-0) 0.72 10*3/uL 1.09-3.23 L MONO x10^3 (test code = 742-7) 0.89 10*3/uL 0.36-1.02 EOS x10^3 (test code = 711-2) 0.04 10*3/uL 0.06-0.53 L BASO x10^3 (test code = 704-7) 0.04 10*3/uL 0.01-0.09 Lab Interpretation (test code = 29875-0) Abnormal [facility] Notes Date/Time Note Provider Source 2024-03-06 08:32:50 Contacted patient and notified STAT referral was placed. Patient reports h no longer needs referral as he already saw the eye doctor. Airam Sheets LVN 03/06/2024 8:33 AM Airam Sheets LVN [facility] 2024-03-05 18:04:11 Order signed stat Go to ER if having worsening symptoms and if any delays in seeing specialist. Kayla Grimes MD [facility] 2024-03-04 16:13:39 Patient reports was seen in an ER/UC type setting x4 days ago for redness/swelling and blurred vision to left eye. He was prescribed antibiotic meds, instructed to f/u with a specialist, and given a referral. He said his insurance will only accept a referral placed by his PCP. Please review and advise. RAMIRO 04/30/23 NOV 03/27/24 [facility] 2024-03-04 14:40:25 Patient is following up on refill T Jaxon Elizabeth [facility] 2024-03-04 09:22:06 Pt is checking the status of the referral for below information. Pt said needed today anna due to afraid of losing eye. Bernice Matthews [facility] 2024-03-04 08:41:43 Recent Visits Date Type Provider Dept 04/30/23 Office Visit Kayla Grimes MD [facility] 04/23/23 Office Visit Kayla Grimes MD [facility] 12/12/22 Office Visit Kayla Grimes MD [facility] 12/05/22 Office Visit Kayla Grimes MD [facility] 11/06/22 Office Visit Alena Min FNP [facility] Showing recent visits within past 540 days with a meds authorizing provider and meeting all other requirements Future Appointments Date Type Provider Dept 03/27/24 Appointment Shaunna Donato PA [facility] Showing future appointments within next 150 days with a meds authorizing provider and meeting all other requirements Airam Sheets LVN [facility] 2024-03-04 08:35:18 Patient is requesting a referral to:ophthalmology Dept: ophthalmology Reason for referral: one pupil is bigger than the other Duration of problem: 3 d Internal / External referral: internal Name of provider / location patient requesting: [facility] Phone number: [phone] Fax number: [phone] Appt already scheduled?: no If yes, date of appt.: na Kia Don [facility] 2024-03-03 09:48:11 Images from the original note were not included. Notes: MUST BE SEEN FOR FURTHER REFILLS Last Refilled: pantoprazole 40 mg EC tabletSig: Take 1 tablet by mouth in the morning.Disp: 30 tablet Refills: 3Start: 03/02/2024lass: eRXNon-formularyFor: Epigastric painLast ordered: 4 months ago (10/09/2023) by Kayla Grimes MD Gastroenterology: Antiulcer - Proton Pump Inhibitors Wgixxf8803/02/2024 02:24 PM Protocol Details Valid encounter within last 12 months To be filled at: [address] Recent Visits Date Type Provider Dept 04/30/23 [...] meeting all other requirements Joanne Gale MA [facility] 2024-03-02 14:23:22 Pt request rx refill. Please Advise. [facility] [address] [place] [id number] [facility] 2023-12-25 09:43:[address] in provider box to review Jemma Aquino MA [facility] 2023-12-24 18:12:[address] [facility]. Printed and placed in providers box. Radha Nelson [facility] 2023-12-05 13:43:20 Patient has been notified of test results/ recommendations per Kayla Grimes Gave verbal understanding Anais Perez MA [facility] 2023-12-05 13:39:34 RX sent [facility] 2023-12-05 13:27:02 Please review and advise. Patient has an appointment for 12/12/23. Edilia Marrero RN [facility] 2023-12-05 13:22:05 Copied from [facility] #[id number]. Topic: Clinical - Order >> December 05, 2023 1:20 PM Patient Access Assoc wrote: Ramiro Link is a 28 year old male is calling in to request a refill for valACYclovir 500 mg tablet (VALTREX). He has an appt schedule for 12/11 but would like to begin treatment ANNA Please advise [phone] (home) [facility] [address] [place] [id number] Ernst Reeder [facility] 2023-10-30 13:05:05 OCA worked 10.29.23 post visit no additional orders needed at this time Nicole Wooten 10/30/2023 1:05 PM Nicole Wooten [facility] 2023-10-09 11:07:02 Images from the original note were not included. Notes: 03/12/23 Last Refilled: [facility] [address] [place] [address] Recent Visits Date Type Provider Dept 04/30/23 Office Visit Kayla Grimes MD [facility] 04/23/23 Office Visit Kayla Grimes MD [facility] 12/12/22 Office Visit Kayla Grimes MD [facility] 12/05/22 Office Visit Kayla Grimes MD [facility] 11/06/22 Office Visit Alena Min FNP [facility] 08/07/22 Office Visit Alena Min FNP [facility] [...] MD Gastroenterology: Antiulcer - Proton Pump Inhibitors Mraidi8310/09/2023 11:03 AM Protocol Details Valid encounter within last 12 months To be filled at: None [Patient requested: Hialeluis alfredo] Anais Perez MA [facility] 2023-09-16 09:23:59 OCA worked 3.5.24 PT post visit no additional orders needed at this time. Nicole Wooten 09/16/2023 9:24 AM Nicole Wooten [facility] 2023-09-05 10:24:24 OCA worked 2.27.24 DNKA Nicole Wooten 09/05/2023 10:24 AM ND HELPER Nicole Calderon [facility] 2023-08-28 08:35:57 OCA worked 12.19.24 PT post visit Nicole Wooten 08/28/2023 8:36 AM ND HELPER Nicole Calderon [facility] 2023-08-26 08:25:39 OCA worked 2.15.24 post visit no additional orders needed at this time. Nicole Wooten 08/26/2023 8:26 AM ND HELPER Nicole Calderon [facility] 2023-08-23 08:12:32 OCA worked 10.3.23 post visit Nicole Wooten 08/23/2023 8:12 AM ND HELPER Nicole Calderon [facility] 2023-08-12 18:22:10 Pt discharged with diagnosis of foreign body sensation in throat and gastroesophageal reflux disease. Printed and verbal instructions reviewed with and given to pt. Prescriptions given x 2. Pt verbalized understanding of teaching, medications, and recommended follow-up. Denies questions or concerns at this time. Pt ambulatory at discharge. Appears in no apparent distress. No ataxia noted. ND HELPER Lacy Moctezuma RN [facility] 2023-08-12 17:12:34 Summary: Patient refused IV Patient refused IV and took his medication orally. ND HELPER Joann Keys RN [facility] 2023-08-12 15:53:16 Pt presents to ED with [...] not been compliant with his stomach medication FER Enamorado RN [facility] 2023-08-09 11:41:48 OCA worked 1..24 and 1..24 Nicole Wooten 08/09/2023 11:43 AM [facility] 08:05:07 OCA worked 1..24 post visit. Nicole Wooten 07/26/2023 8:06 AM ND HELPER Nicole Wooten [facility] 2023-07-11 15:01:10 Faxed 07.05.23 ortho post-appointment file to [facility]. Requested new referral for PT Nicole Wooten 07/11/2023 3:01 PM ND HELPER Nicole Wooten [facility] 2023-03-12 16:06:15 Formatting of this n ote might be different from the original. Rx sent, please keep appt as scheduled Kayla Grimes MD [facility]
[2024-03-11 23:17] LABS: Specific Gravity 1.006 (1.005-1.030); Urine Bilirubin NEGATIVE (Negative); Urine Blood Negative (Negative); Urine Clarity Clear (Clear); Urine Color Dark-Yellow (Yellow); Urine Glucose NEGATIVE (Negative); Urine Ketones NEGATIVE (Negative); Urine Microscopic Reflex YN NO UMIC; Urine Nitrite NEGATIVE (Negative); Urine Protein NEGATIVE (Negative); Urine Urobilinogen Normal (Normal); Urine pH 5.5 (5.0-7.0)
--- NOTE | 2024-03-12 00:42 | EDPHYS ---
Physician Documentation [facility] Name: Ramiro Jay Age: 28 yrs Sex: Male : 1995 Arrival Date: 03/11/2024 Time: 22:54 Bed 14 Private MD: ED Physician Preston Harrison HPI: 03/11 22:58 This 28 yrs old Male presents to ER via Unassigned with complaints of Urinary Problem, kb Headache. 22:58 Pt is a 28 year old male who presents for burning with urination, urinary frequency, kb and urgency that started 2 days ago. denies fever. . Historical: - Allergies: 23:17 No Known Allergies; rg5 - PMHx: 23:17 HERPES; ADD/ADHD; Anxiety; depressive disorder; Gastric Reflux; Pancreatitis; rg5 - Immunization history:: Adult Immunizations not up to date. - Infectious Disease History:: Denies. - Social history:: Smoking status: Patient/guardian denies using tobacco, the patient reports quitting approximately 3 years ago. ROS: 22:58 Constitutional: As per HPI kb Exam: 22:58 Constitutional: This is a well developed, well nourished patient who is awake, alert, kb and in no acute distress. Head/Face: Normocephalic, atraumatic. ENT: Moist Mucous membranes Cardiovascular: Regular rate Respiratory: Respirations even and unlabored. No increased work of breathing. Talking in full sentences Back: No spinal tenderness. No costovertebral tenderness. Full range of motion. Skin: Warm, dry with normal turgor. Normal color. MS/ Extremity: Pulses equal, no cyanosis. Neurovascular intact. Full, normal range of motion. Neuro: Awake and alert, GCS 15, oriented to person, place, time, and situation. Moves all extremities. Normal gait. 22:58 Abdomen/GI: Inspection: abdomen appears normal, Bowel sounds: normal, Palpation: soft, in all quadrants, mild abdominal tenderness, in the suprapubic area, Vital Signs: 23:00 BP 143 / 98; Pulse 67; Resp 17; Temp 98.2; Pulse Ox 97% on R/A; Weight 113.4 kg; Height rg5 6 ft. 2 in. ; Pain 8/10; 23:00 BP 143 / 98; Pulse 67; Resp 17; Temp 98.2; Pulse Ox 97% on R/A; Weight 113.4 kg; Height rg5 6 ft. 2 in. ; Pain 8/10; 03/12 00:57 BP 128 / 79; Pulse 65; Resp 17; Pulse Ox 98% on R/A; Pain 0/10; rg5 03/11 23:00 Body Mass Index 32.10 (113.40 kg, 187.96 cm) [facility] 03/11 23:00 Pain Scale: Adult [facility] 23:00 Pain Scale: Adult [facility] 03/12 00:57 Pain Scale: Adult [facility] MDM: 03/11 22:57 Patient medically screened. 23:01 Data reviewed: vital signs, nurses notes. 23:02 Differential diagnosis: UTI, kidney stone. Test considered but Not performed: Labs: cbc, cmp considered but pt does not want to have any needle sticks if possible. 03/12 00:40 Test considered but Not performed: Labs: gc considered but pt states he was tested and kb negative a couple of months ago and hasn't been sexually active in a year. . Counseling: I had a detailed discussion with the patient and/or guardian regarding the historical points, exam findings, and any diagnostic results supporting the discharge/admit diagnosis, lab results, radiology results, the need for outpatient follow up, a urologist, to return to the emergency department if symptoms worsen or persist or if there are any questions or concerns that arise at home. 03/11 23:02 Order name: Urinalysis w/ reflexes; Complete Time: 23:21 kb 03/11 23:02 Order name: CT Stone Protocol kb Administered Medications: No medications were administered Disposition: 07:13 Co-signature as Attending Physician, Preston Harrison MD I agree with the assessment and dillan plan of care. Disposition Summary: 03/12/24 00:41 Discharge Ordered Notes: Location: Home Condition: Stable kb Diagnosis - Dysuria kb Followup: kb - With: Emergency Department - When: As needed - Reason: Worsening of condition Followup: kb - With: Private Physician - When: 2 - 3 days - Reason: Recheck today's complaints, Continuance of care, Re-evaluation by your physician Discharge Instructions: - Discharge Summary Sheet kb - Dysuria kb Forms: - Medication Reconciliation Form kb - Antibiotic Education kb - Prescription Opioid Use kb - Patient Portal Instructions kb - Leadership Thank You Letter kb Signatures: Dispatcher [facility] Darby Dailey, M[employer] DEPOSITOR-C [employer] DEPOSITOR-Ckb Preston Harrison MD MD cha Gallardo, Rommel, RN RN rg5
--- NOTE | 2024-03-12 00:42 | ER ---
Nurse's Notes [facility] Name: Ramiro Jay Age: 28 yrs Sex: Male : 1995 Arrival Date: 03/11/2024 Time: 22:54 Bed 14 Private MD: Diagnosis: Dysuria Presentation: 03/11 23:00 Chief complaint: Patient states: I have pain when urinating, headache and little bit rg5 nauseated. 23:00 Coronavirus screen: Vaccine status: Patient reports being unvaccinated. Client denies rg5 travel out of the [place] in the last 14 days. Ebola Screen: Patient denies travel to an Ebola-affected area in the 21 days before illness onset. Initial Sepsis Screen: Does the patient meet any 2 criteria? No. Patient's initial sepsis screen is negative. Does the patient have a suspected source of infection? No. Patient's initial sepsis screen is negative. Risk Assessment: Do you want to hurt yourself or someone else? Patient reports no desire to harm self or others. Onset of symptoms was March 10, 2024 at 12:00. 23:00 Method Of Arrival: Ambulatory rg5 23:00 Acuity: MICHELA 4 rg5 Triage Assessment: 23:00 Headache History: Denies prior headaches. General: Appears in no apparent distress. rg5 comfortable, Behavior is calm, cooperative, appropriate for age. Pain: Complains of pain in head Pain currently is 8 out of 10 on a pain scale. Quality of pain is described as aching, Pain began 4 hours ago. Also complains of nausea. EENT: No deficits noted. Neuro: Level of Consciousness is awake, alert, obeys commands, Oriented to person, place, time, situation. Cardiovascular: Denies chest pain, Heart tones S1 S2 Capillary refill < 3 seconds Patient's skin is warm and dry. Respiratory: Airway is patent Trachea midline Respiratory effort is even, unlabored, Respiratory pattern is regular, symmetrical. GI: Abdomen is round non-distended, Abd is soft and non tender Reports lower abdominal pain. : Reports burning with urination, pain since yesterday. Derm: Skin is intact, Skin is dry, Skin is normal. Musculoskeletal: Range of motion: intact in all extremities. Historical: - Allergies: 23:17 No Known Allergies; rg5 - PMHx: 23:17 HERPES; ADD/ADHD; Anxiety; depressive disorder; Gastric Reflux; Pancreatitis; rg5 - Immunization history:: Adult Immunizations not up to date. - Infectious Disease History:: Denies. - Social history:: Smoking status: Patient/guardian denies using tobacco, the patient reports quitting approximately 3 years ago. Screenin:00 [facility] ED Fall Risk Assessment (Adult) History of falling in the last 3 months, rg5 including since admission No falls in past 3 months (0 pts) Confusion or Disorientation No (0 pts) Intoxicated or Sedated No (0 pts) Impaired Gait No (0 pts) Mobility Assist Device Used No (0 pt) Altered Elimination No (0 pt) Score/Fall Risk Level 0 - 2 = Low Risk Oriented to surroundings, Maintained a safe environment, Hourly rounding (assess needs \T\ fall precautionary measures) done. Abuse screen: Denies threats or abuse. Nutritional screening: No deficits noted. Tuberculosis screening: No symptoms or risk factors identified. Assessment: 23:23 Reassessment: see triage assessment. Pain: Complains of pain in head Pain currently is rg5 8 out of 10 on a pain scale. Quality of pain is described as aching, Pain began 4 hours ago. Also complains of nausea. 03/12 00:30 Reassessment: No changes from previously documented assessment. Patient and/or family rg5 updated on plan of care and expected duration. Pain level reassessed. Vital Signs: 03/11 23:00 BP 143 / 98; Pulse 67; Resp 17; Temp 98.2; Pulse Ox 97% on R/A; Weight 113.4 kg; Height rg5 6 ft. 2 in. ; Pain 8/10; 23:00 BP 143 / 98; Pulse 67; Resp 17; Temp 98.2; Pulse Ox 97% on R/A; Weight 113.4 kg; Height rg5 6 ft. 2 in. ; Pain 8/10; 03/12 00:57 BP 128 / 79; Pulse 65; Resp 17; Pulse Ox 98% on R/A; Pain 0/10; rg5 03/11 23:00 Body Mass Index 32.10 (113.40 kg, 187.96 cm) rg5 03/11 23:00 Pain Scale: Adult rg5 23:00 Pain Scale: Adult rg5 03/12 00:57 Pain Scale: Adult rg5 ED Course: 09/04 22:56 Patient arrived in ED. ra3 22:57 Darby Santana FNP-C is [facility]. kb 22:57 Preston Harrison MD is Attending Physician. kb 23:00 Arm band placed on right wrist. rg5 23:00 Patient has correct armband on for positive identification. Bed in low position. Call rg5 light in reach. Side rails up X 1. 23:00 No provider procedures requiring assistance completed. rg5 23:01 Igor Ledezma, RN is Primary Nurse. rg5 23:17 Triage completed. rg5 23:35 CT Stone Protocol In Process Unspecified. EDMS 03/12 00:58 Provided Education on: post er care done. rg5 00:58 Patient did not have IV access during this emergency room visit. rg5 Administered Medications: No medications were administered Medication: 03/11 23:23 VIS not applicable for this client. rg5 Outcome: 03/12 00:41 Discharge ordered by MD. kb 00:57 Discharged to home ambulatory, rg5 00:57 Condition: stable 00:57 Discharge instructions given to patient, Instructed on discharge instructions, follow up and referral plans. Demonstrated understanding of instructions, 00:58 Patient left the ED. rg5 Signatures: Dispatcher [employer] [facility]KY Darby Santana FNP-C [employer] E[employer]ECTIVENESS MANAGER-Osiris Salinas ra3 Igor Ledezma, RN RN rg5
[2024-03-12 01:04] VITALS: TEMP 98.2
[2024-03-12 01:05] VITALS: BP 128/79; O2SAT 98
--- NOTE | 2024-03-12 11:31 | RAD REPORT ---
EXAM DESCRIPTION: CT - Stone Protocol - 03/12/2024 6:54 am CLINICAL HISTORY: The patient is 28 years old and is Male; dysuria;Abd pain TECHNIQUE: Axial computed tomography images of the abdomen and pelvis without intravenous contrast. Sagittal and coronal reformatted images were created and reviewed. This CT exam was performed usi ng one or more of the following dose reduction techniques: automated exposure control, adjustment o f the mA and/or kV according to patient size, and/or use of iterative reconstruction technique. COMPARISON: No relevant prior studies available. FINDINGS: Lung bases: Unremarkable. No mass. No consolidation. ABDOMEN: Liver: Unremarkable. Gallbladder and bile ducts: Unremarkable. No calcified stones. No ductal dilation. Pancreas: Unremarkable. No ductal dilation. Spleen: Unremarkable. No splenomegaly. Adrenals: Unremarkable. No mass. Kidneys and ureters: Unremarkable. No obstructing stones. No hydronephrosis. Stomach and bowel: Submucosal fatty infiltration involving the colon. No obstruction. PELVIS: Appendix: The appendix is normal. Bladder: Unremarkable. Reproductive: Unremarkable as visualized. ABDOMEN and PELVIS: Intraperitoneal space: Unremarkable. No free air. No significant fluid collection. Bones/joints: No acute fracture. No dislocation. Soft tissues: Unremarkable. Vasculature: Unremarkable. No abdominal aortic aneurysm. Lymph nodes: There are a few prominent retroperitoneal lymph nodes. IMPRESSION: No acute finding in the abdomen/pelvis. Electronically signed by: Nithin Buitrago MD 03/12/2024 12:36 AM CDT 8 Due to temporary technical issues with the PACS/Fluency reporting system, reports are being signed by the in house radiologist without review as a courtesy to ensure prompt reporting. The interpreting r adiologist is fully responsible for the content of the report.
== END 2024-03-12 00:58 | disposition home or self-care (01) ==
LOC: ER 22:54
DX: R30.0 Dysuria (principal); R10.9 Unspecified abdominal pain
CPT/HCPCS: 74176; 76377; 81003; 99283

== ENCOUNTER 2024-07-15 08:32 | Emergency (ER) | payer OTHER ==
--- OUTSIDE RECORDS SUMMARY | 2024-07-15 08:41 | XMS REPORT | Continuity of Care Document ---
Author Name Unknown Address [address] [facility] [address] [place] [address] [facility] thconnect Address [address] [facility]. [address] [place] [address] Care Team Providers Care Bill Of Lading Clerk Name Role Phone KAYLA GRIMES Primary Care Physician Unavailable ALENA MIN Attending Clinician Unavailable MAGALI FERRER Attending Clinician Unavailable MAGALI FERRER Attending Clinician Unavailable Diseases-Wimb, Infectious Attending Clinician [phone] SHAUNNA DONATO Attending Clinician Unavailable KADEN ANDREW Attending Clinician Unavailable Kaden Andrew MD Attending Clinician [phone] Shaunna Ahsley Attending Clinician [phone] Kayla Grimes MD Attending Clinician KAYLA GRIMES Attending Clinician Adalgisa vailable Kathy Ji Attending Clinician + [phone] Kayla Grimes MD Attending Clinician KATHY LUX Attending Clinician Unavailab le Jatin, Attending Attending Clinician UnavailEDDIE Fink Attending Clinician Unav Nicole Hernandez Attending Clinician Unavaila juan Barber MA, Alexandrea A Attending Clinician Unavailab Sebastian Wen PTA Attending Clinician Unavaila LORENA Carrera Attending Clinician UnavailLORENA Starkey Attending Clinician UnavailEddie Barreto MD Attending Clinician + Doctor Unassigned, [place] Attending Clinician U bettie Saavedra MD, Lorena Lovell Attending Clinician [phone] ZOHRA PRATER Attending Clinician Unavailable Moi SUSTAIN ENGINEER, Zohra Attending Clinician + [phone] Arabella TAVAREZ, Val Attending Clinician UnavailDHARMESH Ribeiro Attending Clinician Unavailable Gisela PACDharmesh Attending Clinician [phone] GORDON NORWOOD Attending Clinician Unavailable Gordon Norwood MD Attending Clinician + [phone] BABATUNDE HERNÁNDEZ Attending Clinician Unavailable Paty BALBUENA, Tylor Attending Clinician [phone] EDILIA NOLASCO Attending Clinician Unavailable Edilia Nolasco MD Attending Clinician [phone] Mechelle SUSTAIN ENGINEER, Alena Attending Clinician [phone] SULMA VIZCARRA Attending Clinician Unav silvestre [place] [facility] [place] Sheila Lovell Attending Clinician + [phone] BREANNE BENAVIDES Attending Clinician Unavailable BREANNE BENAVIDES Attending Clinician Unavailable IVY THAKKAR Attending Clinician Unavaila juan PROPIvy Attending Clinician [phone] AMARILIS BANUELOS Attending Clinician Unavailable Amarilis Banuelos NP Attending Clinician + [phone] Kaden Andrew MD Attending Clinician [phone] PRIYANKA RIVERA Attending Clinician Unavailable Jena Veloz Attending Clinician U BERNARDO Mcconnell Attending Clinician Unavaila GAURAV Davison Attending Clinician Unavailable Vilma PROPGaurav Attending Clinician [phone] Lab, Ang - Db Attending Clinician Unavailable Thi Trent DO Attending Clinician [phone] [place] Attending Clinician [phone] Barrington Berman MD Attending Clinician [phone] Raymundo Dexter MD Attending Clinician [phone] Daljit Velasco DO Attending Clinician +[phone] DALJIT VELASCO Attending Clinician Unavailable ZOHRA RPATER Admitting Clinician Unavailable DHARMESH HIGGINS Admitting Clinician Unavailable IVY THAKKAR Admitting Clinician UnavailAMARILIS Morelos Admitting Clinician Unavailable GAURAV ESPARZA Admitting Clinician Unavailable Raymundo Dexter MD Admitting Clinician Payers Payer Name Policy Type Policy Number Effective Date Expirati on Date Source [facility] PLUS [id number] 2024 00:00:00 [facility] [id number] 2022 00:00:00 2023 00:00:00 MEDICAID PENDING PENDING 2020 00:00:00 Problems Condition Name Condition Details Condition Category Status Onset Date Resolution Date Last Treatment Date Treating Clinician Comments Source Stomachach e Stomachach e Disease Active 03-08 00:00: 00 [facility] Dysuria Dysuria Disease Active 11-06 00:00: 00 [facility] Cervical radiculopa thy Cervical radiculopa thy Disease Active 11-06 00:00: 00 [facility] Encounter to establish care Encounter to establish care Disease Active 08-07 00:00: 00 [facility] Epigastric pain Epigastric pain Disease Active 08-07 00:00: 00 [facility] Nausea Nausea Disease Active 08-07 00:00: 00 [facility] Anxiety and depression Anxiety and depression Disease Active 08-07 00:00: 00 [facility] Encounter to establish care Encounter to establish care Disease Active 08-07 00:00: 00 [facility] Vomiting Vomiting Disease Active 05 00:00: 00 [facility] No known active problems No known active problems Disease [facility] Allergies, Adverse Reactions, Alerts Allergy Name Allergy Type Status Severity Reaction(s) Onset Date Inactive Date Treating Clinician Comments Source NO KNOWN ALLERGIE S Drug Class Active [facility] Social History Social Habit Start Date Stop Date Quantity Comments Source Gender identity [facility] Sexual orientation [facility] History of tobacco use Cigarette Smoker [facility] Tobacco use and exposure 2024-03-17 00:00:00 2024-03-17 00:00:00 Smokeless tobacco non-user [facility] Alcoholic beverage intake 2024-03-17 00:00:00 2024-03-17 00:00:00 Ex-drinker (finding) [facility] Cigarettes smoked current (pack per day) - Reported 2024-03-17 00:00:00 2024-03-17 00:00:00 [facility] Cigarette pack-years 2024-03-17 00:00:00 2024-03-17 00:00:00 [facility] Alcohol intake 2023-08-13 00:00:00 2023-08-13 00:00:00 Ex-drinker (finding) [facility] History of Social function 2023-05-16 00:00:00 2023-05-16 00:00:00 [facility] Exposure to SARS-CoV-2 (event) 2022-11-25 00:00:00 2022-12-05 09:48:00 Not sure [facility] Tobacco Comment 2022-08-07 00:00:00 2022-08-07 00:00:00 quit 3 months ago [facility] Sex assigned at 1995 00:00:00 1995 00:00:00 [facility] Smoking Status Start Date Stop Date Source Ex-smoker 2024-03-17 00:00:00 2024-03-17 00:00:00 [facility] Current every day smoker 2017-06-22 00:00:00 [facility] Medications Ordered Medication Name Filled Medication Name Start Date Stop Date Current Medication? Ordering Clinician Indication Dosage Frequency Signature (SIG) Comments Components Source tamsulosin (FLOMAX) 0.4 mg 24 hr capsule 03-17 00:00: 00 Yes [id number] .4mg Take 1 capsule by mouth in the morning. [facility] g[facility] 300 mg capsule 03-17 00:00: 00 04-08 04:59 :00 No [id number] 300mg Take 1 capsule by mouth in the morning and 1 capsule at noon and 1 capsule in the evening. Do all this for 21 days. [facility] pantoprazol e 40 mg EC tablet 03-03 00:00: 00 Yes [id number] 40mg Take 1 tablet by mouth in the morning. MUST BE SEEN FOR FURTHER REFILLS [facility] permethrin 5 % cream 12-19 00:00: 00 Yes APPLY CREAM FROM HEAD TO FEET, LEAVE ON FOR 8-14 HOURS THEN WASH WITH SOAP AND WATER. REPEAT OF LIVING MITES PRESENT 14 DAYS AFTER INITIAL TREATMENT [facility] valACYclovi r 500 mg tablet 12-19 00:00: 00 12-25 04:59 :00 No [id number] 1000mg Take 2 tablets by mouth in the morning for 5 days. [facility] ibuprofen 800 mg tablet 12-16 00:00: 00 Yes TAKE 1 TABLET BY MOUTH EVERY 8 HOURS WITH FOOD AND DRINK PLENTY OF WATER NEEDED FOR PAIN [facility] valACYclovi r (VALTREX) 500 mg tablet 12-04 00:00: 00 Yes [id number] 500mg Take 1 tablet by mouth in the morning and 1 tablet in the evening. [facility] chlorhexidi ne 0.12 % mouthwash 12-04 00:00: 00 Yes RINSE MOUTTH WITH 1 CAP FULL OF LIQUID AFTER BRUSHING TWICE DAILY. SWISH FOR APPROXIMAT BRET 60 SECONDS AND SPIT. [facility] pantoprazol e 40 mg EC tablet 03 00:00: 00 03-02 00:00 :00 No [id number] 40mg Take 1 tablet by mouth in the morning. [facility] famotidine (PEPCID AC) tablet 20 mg 08-12 23:00: 00 08-12 22:59 :00 No 20mg 20 mg, Oral, ONCE, 1 dose, On Sat08/12/23 at 1700, JOJO [facility] ondansetron (ZOFRAN-ODT ) disintegrat ing tablet 4 mg 08-12:56: 00 08-12 22:59 :00 No 4mg 4 mg, Oral, ONCE, 1 dose, On Sat08/12/23 at 1700, JOJO [facility] maalox:diph enhydrAMINE :lidocaine 2 % viscous 1:1:1 (FIRST-MOUT HWASH BLM) oral suspension 15 mL 08-12 22:30: 00 08-12 22:54 :00 No 15mL 15 mL, Oral, ONCE, 1 dose, On Sat08/12/23 at 1630, Routine [facility] ondansetron 4 mg disintegrat ing tablet 08-12 00:00: 00 Yes [id number] 4mg Take 1 tablet by mouth every 8 (eight) hours as needed for Nausea and Vomiting (N/V). [facility] aluminum & magnesium hydroxide-s imethicone 400-400-40 mg/5 mL suspension 08-12 00:00: 00 Yes [id number] 10mL Take 10 mL by mouth every 8 (eight) hours as needed for Indigestio n. [facility] methylPREDN ISolone 4 mg tablets 2022-07 00:00: 00 Yes [id number] Take by mouth SEE-INSTRU CTIONS. follow package directions [facility] cyclobenzap rine 5 mg tablet 2022-07 00:00: 00 07-20 05:59 :00 No [id number] 5mg Take 1 tablet by mouth in the morning and 1 tablet at noon and 1 tablet in the evening. Do all this for 14 days. [facility] SERTraline 100 mg tablet 2022-07 00:00: 00 Yes 100mg Take 1 tablet by mouth at bedtime. [facility] ARIPiprazol e 5 mg tablet 2022-07 00:00: 00 Yes 5mg Take 1 tablet by mouth at bedtime. [facility] busPIRone 30 mg tablet 2022-07 10:55: 16 Yes 30mg Take 1 tablet by mouth in the morning and 1 tablet at noon and 1 tablet in the evening. [facility] valACYclovi r 500 mg tablet 2022-07 017 16:09: 58 04-23 00:00 :00 No 500mg Take 1 tablet by mouth in the morning. [facility] valACYclovi r 500 mg tablet 2022-07 017 00:00: 00 04-29 04:59 :00 No [id number] 500mg Take 1 tablet by mouth in the morning and 1 tablet in the evening. Do all this for 5 days. [facility] metroNIDAZO LE 500 mg tablet 2022-07 00:00: 00 04-24 04:59 :00 No [id number] 2000mg Take 4 tablets by mouth once now for 1 dose. [facility] pantoprazol e 40 mg EC tablet 9-05 00:00: 00 10-08 00:00 :00 No [id number] 40mg Take 1 tablet by mouth in the morning. [facility] SERTraline 50 mg tablet 8- 00:00: 00 Yes 50mg Take 1 tablet by mouth at bedtime. [facility] SERTraline 50 mg tablet 8-03 00:00: 00 Yes 100mg Take 2 tablets by mouth at bedtime. [facility] busPIRone 10 mg tablet 7-15 00:00: 00 Yes 10mg Take 1 tablet by mouth in the morning and 1 tablet in the evening. [facility] busPIRone 10 mg tablet 7-15 00:00: 00 04-30 00:00 :00 No 15mg Take 1.5 tablets by mouth in the morning and 1.5 tablets in the evening. [facility] Methylcellu lose, with Sugar, (CITRUCEL, SUCROSE,) powder 01-03 00:00: 00 Yes [id number] 3g Take 3 g by mouth in the morning and 3 g in the evening. [facility] omeprazole 40 mg capsule 01-03 00:00: 00 Yes [id number] 40mg Take 1 capsule by mouth 2 (two) times daily before breakfast and dinner. [facility] Phenyleph-P ramoxin-Gly cr-W.Pet 0.25-1 % Crea 01-03 00:00: 00 Yes [id number] Apply to area(s) 2 (two) times daily. [facility] pantoprazol e 40 mg EC tablet 12-31 00:00: 00 01-03 00:00 :00 No [id number] 40mg Take 1 tablet by mouth in the morning. [facility] SERTraline (ZOLOFT) 25 mg tablet 12-13 00:00: 00 03-12 00:00 :00 No [id number] 12.5mg Take 0.5 tablets by mouth in the morning. [facility] busPIRone 5 mg tablet 12-12 00:00: 00 03-12 00:00 :00 No [id number] 5mg Take 1 tablet by mouth in the morning and 1 tablet in the evening. [facility] SERTraline (ZOLOFT) 50 mg tablet 12-12 00:00: 00 12-13 00:00 :00 No [id number] Take 0.5 tablets by mouth daily for 8 days, THEN 1 tablet daily for 30 days. [facility] acetaminoph en (TYLENOL) tablet 1,000 mg 12-12 00:00: 00 12-11 23:38 :00 No 1000mg 1,000 mg, Oral, ONCE, 1 dose, On Sat12/11/22 at 1900, Routine [facility] NaCl 0.9% (NS) bolus infusion 1,000 mL 12-11 23:45: 00 12-12 01:19 :00 No 1000mL at 999 mL/hr, 1,000 mL, IV Infusion, ONCE, 1 dose, On Sat12/11/22 at 1845, JOJO [facility] ketorolac (TORADOL) injection 30 mg 12-11 23:45: 00 12-11 23:38 :00 No 30mg 30 mg, Slow IV Push, ONCE, 1 dose, On Sat12/11/22 at 1845, JOJO [facility] hydrOXYzine (ATARAX) tablet 50 mg 12-11 23:00: 00 12-11 23:38 :00 No 50mg 50 mg, Oral, ONCE, 1 dose, On Sat12/11/22 at 1800, JOJO [facility] hydrOXYzine 50 mg tablet 12-11 00:00: 00 Yes [id number] 50mg Take 1 tablet by mouth every 8 (eight) hours as needed for Anxiety. [facility] ibuprofen 600 mg tablet 12-11 00:00: 01-03 00:00 :00 No [id number] 600mg Take 1 tablet by mouth every 6 (six) hours as needed for Pain (scale 4-6). [facility] ketorolac (TORADOL) injection 30 mg 12-08 23:45: 00 12-08 23:01 :00 No 30mg 30 mg, Slow IV Push, ONCE, 1 dose, On Sat12/08/22 at 1845, Routine [facility] NaCl 0.9% (NS) IV infusion 1,000 mL 12-08 21:45: 00 Yes 1000mL at 999 mL/hr, Intravenou s, CONTINUOUS , Starting on Sat12/08/22 at 1645, Until Discontinu ed, JOJO [facility] gabapentin 300 mg capsule 12-05 00:00: 00 12-27 04:59 :00 No [id number] 300mg Take 1 capsule by mouth in the morning and 1 capsule at noon and 1 capsule in the evening. Do all this for 21 days. [facility] valACYclovi r 500 mg tablet 11-27 15:38: 27 Yes 500mg Take 1 tablet by mouth in the morning. [facility] ketorolac (TORADOL) injection 30 mg 11-14 02:30: 00 11-14 01:44 :00 No 30mg 30 mg, Slow IV Push, ONCE, 1 dose, On Sat11/13/22 at 2130, JOJO [facility] ibuprofen 800 mg tablet 11-13 00:00: 00 12-12 00:00 :00 No [id number] 800mg Take 1 tablet by mouth in the morning and 1 tablet at noon and 1 tablet in the evening. Take with meals. [facility] cyclobenzap rine 5 mg tablet 11-06 00:00: 00 Yes [id number] 5mg Take 1 tablet by mouth in the morning and 1 tablet at noon and 1 tablet in the evening. [facility] methylPREDN ISolone (MEDROL, TRAV,) 4 mg tablets 11-06 00:00: 00 11-12 04:59 :00 No [id number] Take by mouth SEE-INSTRU CTIONS for 5 days. follow package directions [facility] pantoprazol e 40 mg EC tablet 10-23 00:00: 00 12-31 00:00 :00 No [id number] 40mg Take 1 tablet by mouth in the morning. [facility] famotidine (PEPCID ORAL) 08-07 13:33: 27 08-07 00:00 :00 No Take by mouth. [facility] ondansetron (ZOFRAN) 4 mg tablet 08-07 00:00: 00 Yes [id number] 4mg Take 1 tablet by mouth every 8 (eight) hours as needed for Nausea and Vomiting (N/V). [facility] pantoprazol e 40 mg EC tablet 08-07 00:00: 00 10-23 00:00 :00 No [id number] 40mg Take 1 tablet by mouth in the morning. [facility] famotidine 20 mg in NS 50 ml (PEPCID) 20 mg/50 mL Piggyback 20 mg 12-28 19:45: 00 12-28 19:31 :00 No 20mg 20 mg, IV Piggyback, ONCE, 1 dose, Sat12/28/20 at 1445, 50 mL [facility] NaCl 0.9% (NS) bolus infusion 1,000 mL 12-28 19:30: 00 12-28 19:31 :00 No 1000mL at 999 mL/hr, 1,000 mL, IV Infusion, ONCE, 1 dose, Sat12/28/20 at 1430, STAT [facility] iopamidol (ISOVUE 370-500 mL) injection 120 mL 12-28 18:40: 00 12-28 18:40 :00 No [id number] 120mL 120 mL, Intravenou s, ONCE, 1 dose, Sat12/28/20 at 1400, Routine [facility] ondansetron (ZOFRAN (PF)) injection 4 mg 12-28 18:30: 00 12-28 17:42 :00 No 4mg 4 mg, Slow IV Push, ONCE, 1 dose, Sat12/28/20 at 1330, JOJO [facility] ondansetron (ZOFRAN ODT) 4 mg disintegrat ing tablet 12-28 00:00: 00 08-07 00:00 :00 No [id number] 4mg Take 1 tablet by mouth every 8 (eight) hours as needed for Nausea and Vomiting (N/V). [facility] enoxaparin (LOVENOX) injection 30 mg 12-10 22:00: 00 Yes 30mg 30 mg, Subcutaneo us, DAILY, First dose on 12/10/20 at 1700, Until Discontinu ed, Routine [facility] lactated ringers IV infusion 1,000 mL 12-10 16:00: 00 Yes 1000mL at 100 mL/hr, 1,000 mL, IV Infusion, CONTINUOUS , Starting 12/10/20 at 1100, Until Discontinu ed, Routine [facility] acetaminoph en (TYLENOL) tablet 650 mg 12-10 14:58: 36 Yes 650mg 650 mg, Oral, Q6HPRN, Starting 12/10/20 at 0958, Until Discontinu ed, Routine, Pain (scale 1-3) [facility] ondansetron (ZOFRAN (PF)) injection 4 mg 12-10 13:00: 00 12-10 12:15 :00 No 4mg 4 mg, Slow IV Push, ONCE, 1 dose, 12/10/20 at 0800, [facility] NaCl 0.9% (NS) bolus infusion 1,000 mL 12-10 12:00: 00 12-10 12:15 :00 No 1000mL at 999 mL/hr, 1,000 mL, IV Infusion, ONCE, 1 dose, 12/10/20 at 0700, [facility] chlorhexidi ne 0.12 % mouthwash 11-21 00:00: 00 12-10 00:00 :00 No [id number] 15mL Swish and spit out 15 mL 2 (two) times daily. [facility] methylPREDN ISolone (MEDROL, TRAV,) 4 mg tablets 11-21 00:00: 12-10 00:00 :00 No [id number] Take by mouth SEE-INSTRU CTIONS. follow package directions [facility] acetaminoph en-codeine (TYLENOL-CO DEINE #3) 300-30 mg tablet 11-21 00:00: 00 12-10 00:00 :00 No [id number] 1{tbl} Take 1 tablet by mouth every 4 (four) hours as needed for Pain (scale 7-10). Indication s: acute pain [facility] ondansetron 4 mg disintegrat ing tablet 11-21 00:00: 00 12-10 00:00 :00 No [id number] 4mg Take 1 tablet by mouth every 8 (eight) hours as needed for Nausea and Vomiting (N/V). [facility] clindamycin 150 mg capsule 11-21 00:00: 00 11-29 04:59 :00 No [id number] 300mg Take 2 capsules by mouth 4 (four) times daily for 7 days. [facility] azithromyci n (ZITHROMAX Z-TRAV) 250 mg tablet 4-10 00:00: 00 12-10 00:00 :00 No [id number] 250mg Take 1 tablet by mouth SEE-INSTRU CTIONS. Take 500 mg day 1, then 250 mg days 2 to 5. [facility] dextrometho rphan-guaif enesin 10-100 mg/5 mL solution 4-10 00:00: 00 12-10 00:00 :00 No [id number] 10mL Take 10 mL by mouth every 6 (six) hours as needed for Cough. [facility] ibuprofen 800 mg tablet 4-10 00:00: 00 12-10 00:00 :00 No [id number] 800mg Take 1 tablet by mouth every 8 (eight) hours. [facility] cyclobenzap rine 5 mg tablet 2017-07 0-31 00:00: 00 12-10 00:00 :00 No 5mg Take 1 tablet by mouth 3 (three) times daily. [facility] CATAFLAM 50 mg tablet 2014-07 1-18 00:00: 00 12-10 00:00 :00 No 50mg Take 1 Tab by mouth 3 (three) times daily. [facility] Immunizations Ordered Immunization Name Filled Immunization Name Date Status Comments Source Hepatitis A Adult 2011-08-29 00:00:00 Completed [facility] Hepatitis A Adult 2011-08-29 00:00:00 Completed [facility] Hepatitis A Adult 2011-08-29 00:00:00 Completed [facility] Hepatitis A Adult 2011-08-29 00:00:00 Completed [facility] Hepatitis A Adult 2011-08-29 00:00:00 Completed [facility] Hepatitis A Adult 2011-08-29 00:00:00 Completed [facility] Hepatitis A Adult 2011-08-29 00:00:00 Completed [facility] Hepatitis A Adult 2011-08-29 00:00:00 Completed [facility] Hepatitis A Adult 2011-08-29 00:00:00 Completed [facility] Hepatitis A Adult 2011-08-29 00:00:00 Completed Hepatitis A Adult 2011-08-29 00:00:00 Completed [facility] Hepatitis A Adult 2011-08-29 00:00:00 Completed [facility] Hepatitis A Adult 2011-08-29 00:00:00 Completed [facility] Hepatitis A Adult 2011-08-29 00:00:00 Completed [facility] Hepatitis A Adult 2011-08-29 00:00:00 Completed [facility] Hepatitis A Adult 2011-08-29 00:00:00 Completed [facility] Hepatitis A Adult 2011-08-29 00:00:00 Completed [facility] Hepatitis A Adult 2011-08-29 00:00:00 Completed [facility] Hepatitis A Adult 2011-08-29 00:00:00 Completed [facility] Hepatitis A Adult 2011-08-29 00:00:00 Completed [facility] Meningococcal Polysaccharide (groups A, C, Y and W-135) conjugate vaccine (MCV4P) 2009-02-28 00:00:00 Completed [facility] TDAP 2009-02-28 00:00:00 Completed [facility] Varicella (varivax)(chicken pox) 2009-02-28 00:00:00 Completed [facility] HEPATITIS A 2009-02-28 00:00:00 Completed [facility] HEPATITIS A 2009-02-28 00:00:00 Completed [facility] Meningococcal Polysaccharide (groups A, C, Y and W-135) conjugate vaccine (MCV4P) 2009-02-28 00:00:00 Completed [facility] TDAP 2009-02-28 00:00:00 Completed [facility] Varicella (varivax)(chicken pox) 2009-02-28 00:00:00 Completed [facility] HEPATITIS A 2009-02-28 00:00:00 Completed [facility] Meningococcal Polysaccharide (groups A, C, Y and W-135) conjugate vaccine (MCV4P) 2009-02-28 00:00:00 Completed [facility] TDAP 2009-02-28 00:00:00 Completed [facility] Varicella (varivax)(chicken pox) 2009-02-28 00:00:00 Completed [facility] HEPATITIS A 2009-02-28 00:00:00 Completed [facility] Meningococcal Polysaccharide (groups A, C, Y and W-135) conjugate vaccine (MCV4P) 2009-02-28 00:00:00 Completed [facility] TDAP 2009-02-28 00:00:00 Completed [facility] Varicella (varivax)(chicken pox) 2009-02-28 00:00:00 Completed [facility] HEPATITIS A 2009-02-28 00:00:00 Completed [facility] Meningococcal Polysaccharide (groups A, C, Y and W-135) conjugate vaccine (MCV4P) 2009-02-28 00:00:00 Completed [facility] TDAP 2009-02-28 00:00:00 Completed [facility] Varicella (varivax)(chicken pox) 2009-02-28 00:00:00 Completed [facility] HEPATITIS A 2009-02-28 00:00:00 Completed [facility] Meningococcal Polysaccharide (groups A, C, Y and W-135) conjugate vaccine (MCV4P) 2009-02-28 00:00:00 Completed [facility] TDAP 2009-02-28 00:00:00 Completed [facility] Varicella (varivax)(chicken pox) 2009-02-28 00:00:00 Completed [facility] HEPATITIS A 2009-02-28 00:00:00 Completed [facility] Meningococcal Polysaccharide (groups A, C, Y and W-135) conjugate vaccine (MCV4P) 2009-02-28 00:00:00 Completed [facility] TDAP 2009-02-28 00:00:00 Completed [facility] Varicella (varivax)(chicken pox) 2009-02-28 00:00:00 Completed [facility] HEPATITIS A 2009-02-28 00:00:00 Completed [facility] Meningococcal Polysaccharide (groups A, C, Y and W-135) conjugate vaccine (MCV4P) 2009-02-28 00:00:00 Completed [facility] TDAP 2009-02-28 00:00:00 Completed [facility] Varicella (varivax)(chicken pox) 2009-02-28 00:00:00 Completed [facility] HEPATITIS A 2009-02-28 00:00:00 Completed [facility] Meningococcal Polysaccharide (groups A, C, Y and W-135) conjugate vaccine (MCV4P) 2009-02-28 00:00:00 Completed [facility] TDAP 2009-02-28 00:00:00 Completed [facility] Varicella (varivax)(chicken pox) 2009-02-28 00:00:00 Completed [facility] HEPATITIS A 2009-02-28 00:00:00 Completed Meningococcal Polysaccharide (groups A, C, Y and W-135) conjugate vaccine (MCV4P) 2009-02-28 00:00:00 Completed TDAP 2009-02-28 00:00:00 Completed Varicella (varivax)(chicken pox) 2009-02-28 00:00:00 Completed HEPATITIS A 2009-02-28 00:00:00 Completed [facility] Meningococcal Polysaccharide (groups A, C, Y and W-135) conjugate vaccine (MCV4P) 2009-02-28 00:00:00 Completed [facility] TDAP 2009-02-28 00:00:00 Completed [facility] Varicella (varivax)(chicken pox) 2009-02-28 00:00:00 Completed [facility] HEPATITIS A 2009-02-28 00:00:00 Completed [facility] Meningococcal Polysaccharide (groups A, C, Y and W-135) conjugate vaccine (MCV4P) 2009-02-28 00:00:00 Completed [facility] TDAP 2009-02-28 00:00:00 Completed [facility] Varicella (varivax)(chicken pox) 2009-02-28 00:00:00 Completed [facility] HEPATITIS A 2009-02-28 00:00:00 Completed [facility] Meningococcal Polysaccharide (groups A, C, Y and W-135) conjugate vaccine (MCV4P) 2009-02-28 00:00:00 Completed [facility] TDAP 2009-02-28 00:00:00 Completed [facility] Varicella (varivax)(chicken pox) 2009-02-28 00:00:00 Completed [facility] HEPATITIS A 2009-02-28 00:00:00 Completed [facility] Meningococcal Polysaccharide (groups A, C, Y and W-135) conjugate vaccine (MCV4P) 2009-02-28 00:00:00 Completed [facility] TDAP 2009-02-28 00:00:00 Completed [facility] Varicella (varivax)(chicken pox) 2009-02-28 00:00:00 Completed [facility] HEPATITIS A 2009-02-28 00:00:00 Completed [facility] Meningococcal Polysaccharide (groups A, C, Y and W-135) conjugate vaccine (MCV4P) 2009-02-28 00:00:00 Completed [facility] TDAP 2009-02-28 00:00:00 Completed [facility] Varicella (varivax)(chicken pox) 2009-02-28 00:00:00 Completed [facility] HEPATITIS A 2009-02-28 00:00:00 Completed [facility] Meningococcal Polysaccharide (groups A, C, Y and W-135) conjugate vaccine (MCV4P) 2009-02-28 00:00:00 Completed [facility] TDAP 2009-02-28 00:00:00 Completed [facility] Varicella (varivax)(chicken pox) 2009-02-28 00:00:00 Completed [facility] HEPATITIS A 2009-02-28 00:00:00 Completed [facility] Meningococcal Polysaccharide (groups A, C, Y and W-135) conjugate vaccine (MCV4P) 2009-02-28 00:00:00 Completed [facility] TDAP 2009-02-28 00:00:00 Completed [facility] Varicella (varivax)(chicken pox) 2009-02-28 00:00:00 Completed [facility] HEPATITIS A 2009-02-28 00:00:00 Completed [facility] Meningococcal Polysaccharide (groups A, C, Y and W-135) conjugate vaccine (MCV4P) 2009-02-28 00:00:00 Completed [facility] TDAP 2009-02-28 00:00:00 Completed [facility] Varicella (varivax)(chicken pox) 2009-02-28 00:00:00 Completed [facility] HEPATITIS A 2009-02-28 00:00:00 Completed [facility] Meningococcal Polysaccharide (groups A, C, Y and W-135) conjugate vaccine (MCV4P) 2009-02-28 00:00:00 Completed [facility] TDAP 2009-02-28 00:00:00 Completed [facility] Varicella (varivax)(chicken pox) 2009-02-28 00:00:00 Completed [facility] HEPATITIS A 2009-02-28 00:00:00 Completed [facility] Meningococcal Polysaccharide (groups A, C, Y and W-135) conjugate vaccine (MCV4P) 2009-02-28 00:00:00 Completed [facility] TDAP 2009-02-28 00:00:00 Completed [facility] Varicella (varivax)(chicken pox) 2009-02-28 00:00:00 Completed [facility] Poliovirus, Live, Oral, Trivalent 1999-04-26 00:00:00 Completed [facility] DTaP, Unspecified Formulation 1999-04-26 00:00:00 Completed [facility] Hep B, Adol or Pedi Dosage 1999-04-26 00:00:00 Completed [facility] DTaP, Unspecified Formulation 1999-04-26 00:00:00 Completed [facility] Hep B, Adol or Pedi Dosage 1999-04-26 00:00:00 Completed [facility] Poliovirus, Live, Oral, Trivalent 1999-04-26 00:00:00 Completed [facility] DTaP, Unspecified Formulation 1999-04-26 00:00:00 Completed [facility] Hep B, Adol or Pedi Dosage 1999-04-26 00:00:00 Completed [facility] Poliovirus, Live, Oral, Trivalent 1999-04-26 00:00:00 Completed [facility] DTaP, Unspecified Formulation 1999-04-26 00:00:00 Completed [facility] Hep B, Adol or Pedi Dosage 1999-04-26 00:00:00 Completed [facility] Poliovirus, Live, Oral, Trivalent 1999-04-26 00:00:00 Completed [facility] DTaP, Unspecified Formulation 1999-04-26 00:00:00 Completed [facility] Hep B, Adol or Pedi Dosage 1999-04-26 00:00:00 Completed [facility] Poliovirus, Live, Oral, Trivalent 1999-04-26 00:00:00 Completed [facility] DTaP, Unspecified Formulation 1999-04-26 00:00:00 Completed [facility] Hep B, Adol or Pedi Dosage 1999-04-26 00:00:00 Completed [facility] Poliovirus, Live, Oral, Trivalent 1999-04-26 00:00:00 Completed [facility] DTaP, Unspecified Formulation 1999-04-26 00:00:00 Completed [facility] Hep B, Adol or Pedi Dosage 1999-04-26 00:00:00 Completed [facility] Poliovirus, Live, Oral, Trivalent 1999-04-26 00:00:00 Completed [facility] DTaP, Unspecified Formulation 1999-04-26 00:00:00 Completed [facility] Hep B, Adol or Pedi Dosage 1999-04-26 00:00:00 Completed [facility] Poliovirus, Live, Oral, Trivalent 1999-04-26 00:00:00 Completed [facility] DTaP, Unspecified Formulation 1999-04-26 00:00:00 Completed [facility] Hep B, Adol or Pedi Dosage 1999-04-26 00:00:00 Completed [facility] Poliovirus, Live, Oral, Trivalent 1999-04-26 00:00:00 Completed [facility] DTaP, Unspecified Formulation 1999-04-26 00:00:00 Completed Hep B, Adol or Pedi Dosage 1999-04-26 00:00:00 Completed Poliovirus, Live, Oral, Trivalent 1999-04-26 00:00:00 Completed DTaP, Unspecified Formulation 1999-04-26 00:00:00 Completed [facility] Hep B, Adol or Pedi Dosage 1999-04-26 00:00:00 Completed [facility] Poliovirus, Live, Oral, Trivalent 1999-04-26 00:00:00 Completed [facility] DTaP, Unspecified Formulation 1999-04-26 00:00:00 Completed [facility] Hep B, Adol or Pedi Dosage 1999-04-26 00:00:00 Completed [facility] Poliovirus, Live, Oral, Trivalent 1999-04-26 00:00:00 Completed [facility] DTaP, Unspecified Formulation 1999-04-26 00:00:00 Completed [facility] Hep B, Adol or Pedi Dosage 1999-04-26 00:00:00 Completed [facility] Poliovirus, Live, Oral, Trivalent 1999-04-26 00:00:00 Completed [facility] DTaP, Unspecified Formulation 1999-04-26 00:00:00 Completed [facility] Hep B, Adol or Pedi Dosage 1999-04-26 00:00:00 Completed [facility] Poliovirus, Live, Oral, Trivalent 1999-04-26 00:00:00 Completed [facility] DTaP, Unspecified Formulation 1999-04-26 00:00:00 Completed [facility] Hep B, Adol or Pedi Dosage 1999-04-26 00:00:00 Completed [facility] Poliovirus, Live, Oral, Trivalent 1999-04-26 00:00:00 Completed [facility] DTaP, Unspecified Formulation 1999-04-26 00:00:00 Completed [facility] Hep B, Adol or Pedi Dosage 1999-04-26 00:00:00 Completed [facility] Poliovirus, Live, Oral, Trivalent 1999-04-26 00:00:00 Completed [facility] DTaP, Unspecified Formulation 1999-04-26 00:00:00 Completed [facility] Hep B, Adol or Pedi Dosage 1999-04-26 00:00:00 Completed [facility] Poliovirus, Live, Oral, Trivalent 1999-04-26 00:00:00 Completed [facility] DTaP, Unspecified Formulation 1999-04-26 00:00:00 Completed [facility] Hep B, Adol or Pedi Dosage 1999-04-26 00:00:00 Completed [facility] Poliovirus, Live, Oral, Trivalent 1999-04-26 00:00:00 Completed [facility] DTaP, Unspecified Formulation 1999-04-26 00:00:00 Completed [facility] Hep B, Adol or Pedi Dosage 1999-04-26 00:00:00 Completed [facility] Poliovirus, Live, Oral, Trivalent 1999-04-26 00:00:00 Completed [facility] DTaP, Unspecified Formulation 1999-04-26 00:00:00 Completed [facility] Hep B, Adol or Pedi Dosage 1999-04-26 00:00:00 Completed [facility] Poliovirus, Live, Oral, Trivalent 1999-04-26 00:00:00 Completed [facility] DTaP, Unspecified Formulation 1998-05-04 00:00:00 Completed [facility] DTaP, Unspecified Formulation 1998-05-04 00:00:00 Completed [facility] DTaP, Unspecified Formulation 1998-05-04 00:00:00 Completed [facility] DTaP, Unspecified Formulation 1998-05-04 00:00:00 Completed [facility] DTaP, Unspecified Formulation 1998-05-04 00:00:00 Completed [facility] DTaP, Unspecified Formulation 1998-05-04 00:00:00 Completed [facility] DTaP, Unspecified Formulation 1998-05-04 00:00:00 Completed [facility] DTaP, Unspecified Formulation 1998-05-04 00:00:00 Completed [facility] DTaP, Unspecified Formulation 1998-05-04 00:00:00 Completed [facility] DTaP, Unspecified Formulation 1998-05-04 00:00:00 Completed DTaP, Unspecified Formulation 1998-05-04 00:00:00 Completed [facility] DTaP, Unspecified Formulation 1998-05-04 00:00:00 Completed [facility] DTaP, Unspecified Formulation 1998-05-04 00:00:00 Completed [facility] DTaP, Unspecified Formulation 1998-05-04 00:00:00 Completed [facility] DTaP, Unspecified Formulation 1998-05-04 00:00:00 Completed [facility] DTaP, Unspecified Formulation 1998-05-04 00:00:00 Completed [facility] DTaP, Unspecified Formulation 1998-05-04 00:00:00 Completed [facility] DTaP, Unspecified Formulation 1998-05-04 00:00:00 Completed [facility] DTaP, Unspecified Formulation 1998-05-04 00:00:00 Completed [facility] DTaP, Unspecified Formulation 1998-05-04 00:00:00 Completed [facility] Haemophilus influenzae type b vaccine, conjugate unspecified formulation 1998-03-03 00:00:00 Completed [facility] MMR 1998-03-03 00:00:00 Completed [facility] Poliovirus, Live, Oral, Trivalent 1998-03-03 00:00:00 Completed [facility] DTaP, Unspecified Formulation 1998-03-03 00:00:00 Completed [facility] Hep B, Adol or Pedi Dosage 1998-03-03 00:00:00 Completed [facility] DTaP, Unspecified Formulation 1998-03-03 00:00:00 Completed [facility] Hep B, Adol or Pedi Dosage 1998-03-03 00:00:00 Completed [facility] Haemophilus influenzae type b vaccine, conjugate unspecified formulation 1998-03-03 00:00:00 Completed [facility] MMR 1998-03-03 00:00:00 Completed [facility] Poliovirus, Live, Oral, Trivalent 1998-03-03 00:00:00 Completed [facility] DTaP, Unspecified Formulation 1998-03-03 00:00:00 Completed [facility] Hep B, Adol or Pedi Dosage 1998-03-03 00:00:00 Completed [facility] Haemophilus influenzae type b vaccine, conjugate unspecified formulation 1998-03-03 00:00:00 Completed [facility] MMR 1998-03-03 00:00:00 Completed [facility] Poliovirus, Live, Oral, Trivalent 1998-03-03 00:00:00 Completed [facility] DTaP, Unspecified Formulation 1998-03-03 00:00:00 Completed [facility] Hep B, Adol or Pedi Dosage 1998-03-03 00:00:00 Completed [facility] Haemophilus influenzae type b vaccine, conjugate unspecified formulation 1998-03-03 00:00:00 Completed [facility] MMR 1998-03-03 00:00:00 Completed [facility] Poliovirus, Live, Oral, Trivalent 1998-03-03 00:00:00 Completed [facility] DTaP, Unspecified Formulation 1998-03-03 00:00:00 Completed [facility] Hep B, Adol or Pedi Dosage 1998-03-03 00:00:00 Completed [facility] Haemophilus influenzae type b vaccine, conjugate unspecified formulation 1998-03-03 00:00:00 Completed [facility] MMR 1998-03-03 00:00:00 Completed [facility] Poliovirus, Live, Oral, Trivalent 1998-03-03 00:00:00 Completed [facility] DTaP, Unspecified Formulation 1998-03-03 00:00:00 Completed [facility] Hep B, Adol or Pedi Dosage 1998-03-03 00:00:00 Completed [facility] Haemophilus influenzae type b vaccine, conjugate unspecified formulation 1998-03-03 00:00:00 Completed [facility] MMR 1998-03-03 00:00:00 Completed [facility] Poliovirus, Live, Oral, Trivalent 1998-03-03 00:00:00 Completed [facility] DTaP, Unspecified Formulation 1998-03-03 00:00:00 Completed [facility] Hep B, Adol or Pedi Dosage 1998-03-03 00:00:00 Completed [facility] Haemophilus influenzae type b vaccine, conjugate unspecified formulation 1998-03-03 00:00:00 Completed [facility] MMR 1998-03-03 00:00:00 Completed [facility] Poliovirus, Live, Oral, Trivalent 1998-03-03 00:00:00 Completed [facility] DTaP, Unspecified Formulation 1998-03-03 00:00:00 Completed [facility] Hep B, Adol or Pedi Dosage 1998-03-03 00:00:00 Completed [facility] Haemophilus influenzae type b vaccine, conjugate unspecified formulation 1998-03-03 00:00:00 Completed [facility] MMR 1998-03-03 00:00:00 Completed [facility] Poliovirus, Live, Oral, Trivalent 1998-03-03 00:00:00 Completed [facility] DTaP, Unspecified Formulation 1998-03-03 00:00:00 Completed [facility] Hep B, Adol or Pedi Dosage 1998-03-03 00:00:00 Completed [facility] Haemophilus influenzae type b vaccine, conjugate unspecified formulation 1998-03-03 00:00:00 Completed [facility] MMR 1998-03-03 00:00:00 Completed [facility] Poliovirus, Live, Oral, Trivalent 1998-03-03 00:00:00 Completed [facility] DTaP, Unspecified Formulation 1998-03-03 00:00:00 Completed [facility] Hep B, Adol or Pedi Dosage 1998-03-03 00:00:00 Completed Haemophilus influenzae type b vaccine, conjugate unspecified formulation 1998-03-03 00:00:00 Completed MMR 1998-03-03 00:00:00 Completed Poliovirus, Live, Oral, Trivalent 1998-03-03 00:00:00 Completed DTaP, Unspecified Formulation 1998-03-03 00:00:00 Completed [facility] Hep B, Adol or Pedi Dosage 1998-03-03 00:00:00 Completed [facility] Haemophilus influenzae type b vaccine, conjugate unspecified formulation 1998-03-03 00:00:00 Completed [facility] MMR 1998-03-03 00:00:00 Completed [facility] Poliovirus, Live, Oral, Trivalent 1998-03-03 00:00:00 Completed [facility] DTaP, Unspecified Formulation 1998-03-03 00:00:00 Completed [facility] Hep B, Adol or Pedi Dosage 1998-03-03 00:00:00 Completed [facility] Haemophilus influenzae type b vaccine, conjugate unspecified formulation 1998-03-03 00:00:00 Completed [facility] MMR 1998-03-03 00:00:00 Completed [facility] Poliovirus, Live, Oral, Trivalent 1998-03-03 00:00:00 Completed [facility] DTaP, Unspecified Formulation 1998-03-03 00:00:00 Completed [facility] Hep B, Adol or Pedi Dosage 1998-03-03 00:00:00 Completed [facility] Haemophilus influenzae type b vaccine, conjugate unspecified formulation 1998-03-03 00:00:00 Completed [facility] MMR 1998-03-03 00:00:00 Completed [facility] Poliovirus, Live, Oral, Trivalent 1998-03-03 00:00:00 Completed [facility] DTaP, Unspecified Formulation 1998-03-03 00:00:00 Completed [facility] Hep B, Adol or Pedi Dosage 1998-03-03 00:00:00 Completed [facility] Haemophilus influenzae type b vaccine, conjugate unspecified formulation 1998-03-03 00:00:00 Completed [facility] MMR 1998-03-03 00:00:00 Completed [facility] Poliovirus, Live, Oral, Trivalent 1998-03-03 00:00:00 Completed [facility] DTaP, Unspecified Formulation 1998-03-03 00:00:00 Completed [facility] Hep B, Adol or Pedi Dosage 1998-03-03 00:00:00 Completed [facility] Haemophilus influenzae type b vaccine, conjugate unspecified formulation 1998-03-03 00:00:00 Completed [facility] MMR 1998-03-03 00:00:00 Completed [facility] Poliovirus, Live, Oral, Trivalent 1998-03-03 00:00:00 Completed [facility] DTaP, Unspecified Formulation 1998-03-03 00:00:00 Completed [facility] Hep B, Adol or Pedi Dosage 1998-03-03 00:00:00 Completed [facility] Haemophilus influenzae type b vaccine, conjugate unspecified formulation 1998-03-03 00:00:00 Completed [facility] MMR 1998-03-03 00:00:00 Completed [facility] Poliovirus, Live, Oral, Trivalent 1998-03-03 00:00:00 Completed [facility] DTaP, Unspecified Formulation 1998-03-03 00:00:00 Completed [facility] Hep B, Adol or Pedi Dosage 1998-03-03 00:00:00 Completed [facility] Haemophilus influenzae type b vaccine, conjugate unspecified formulation 1998-03-03 00:00:00 Completed [facility] MMR 1998-03-03 00:00:00 Completed [facility] Poliovirus, Live, Oral, Trivalent 1998-03-03 00:00:00 Completed [facility] DTaP, Unspecified Formulation 1998-03-03 00:00:00 Completed [facility] Hep B, Adol or Pedi Dosage 1998-03-03 00:00:00 Completed [facility] Haemophilus influenzae type b vaccine, conjugate unspecified formulation 1998-03-03 00:00:00 Completed [facility] MMR 1998-03-03 00:00:00 Completed [facility] Poliovirus, Live, Oral, Trivalent 1998-03-03 00:00:00 Completed [facility] DTaP, Unspecified Formulation 1998-03-03 00:00:00 Completed [facility] Hep B, Adol or Pedi Dosage 1998-03-03 00:00:00 Completed [facility] Haemophilus influenzae type b vaccine, conjugate unspecified formulation 1998-03-03 00:00:00 Completed [facility] MMR 1998-03-03 00:00:00 Completed [facility] Poliovirus, Live, Oral, Trivalent 1998-03-03 00:00:00 Completed [facility] DTaP, Unspecified Formulation 1998-03-03 00:00:00 Completed [facility] Hep B, Adol or Pedi Dosage 1998-03-03 00:00:00 Completed [facility] Haemophilus influenzae type b vaccine, conjugate unspecified formulation 1998-03-03 00:00:00 Completed [facility] MMR 1998-03-03 00:00:00 Completed [facility] Poliovirus, Live, Oral, Trivalent 1998-03-03 00:00:00 Completed [facility] Haemophilus influenzae type b vaccine, conjugate unspecified formulation 1998-01-25 00:00:00 Completed [facility] MMR 1998-01-25 00:00:00 Completed [facility] Poliovirus, Live, Oral, Trivalent 1998-01-25 00:00:00 Completed [facility] DTaP, Unspecified Formulation 1998-01-25 00:00:00 Completed [facility] Hep B, Adol or Pedi Dosage 1998-01-25 00:00:00 Completed [facility] DTaP, Unspecified Formulation 1998-01-25 00:00:00 Completed [facility] Hep B, Adol or Pedi Dosage 1998-01-25 00:00:00 Completed [facility] Haemophilus influenzae type b vaccine, conjugate unspecified formulation 1998-01-25 00:00:00 Completed [facility] MMR 1998-01-25 00:00:00 Completed [facility] Poliovirus, Live, Oral, Trivalent 1998-01-25 00:00:00 Completed [facility] DTaP, Unspecified Formulation 1998-01-25 00:00:00 Completed [facility] Hep B, Adol or Pedi Dosage 1998-01-25 00:00:00 Completed [facility] Haemophilus influenzae type b vaccine, conjugate unspecified formulation 1998-01-25 00:00:00 Completed [facility] MMR 1998-01-25 00:00:00 Completed [facility] Poliovirus, Live, Oral, Trivalent 1998-01-25 00:00:00 Completed [facility] DTaP, Unspecified Formulation 1998-01-25 00:00:00 Completed [facility] Hep B, Adol or Pedi Dosage 1998-01-25 00:00:00 Completed [facility] Haemophilus influenzae type b vaccine, conjugate unspecified formulation 1998-01-25 00:00:00 Completed [facility] MMR 1998-01-25 00:00:00 Completed [facility] Poliovirus, Live, Oral, Trivalent 1998-01-25 00:00:00 Completed [facility] DTaP, Unspecified Formulation 1998-01-25 00:00:00 Completed [facility] Hep B, Adol or Pedi Dosage 1998-01-25 00:00:00 Completed [facility] Haemophilus influenzae type b vaccine, conjugate unspecified formulation 1998-01-25 00:00:00 Completed [facility] MMR 1998-01-25 00:00:00 Completed [facility] Poliovirus, Live, Oral, Trivalent 1998-01-25 00:00:00 Completed [facility] DTaP, Unspecified Formulation 1998-01-25 00:00:00 Completed [facility] Hep B, Adol or Pedi Dosage 1998-01-25 00:00:00 Completed [facility] Haemophilus influenzae type b vaccine, conjugate unspecified formulation 1998-01-25 00:00:00 Completed [facility] MMR 1998-01-25 00:00:00 Completed [facility] Poliovirus, Live, Oral, Trivalent 1998-01-25 00:00:00 Completed [facility] DTaP, Unspecified Formulation 1998-01-25 00:00:00 Completed [facility] Hep B, Adol or Pedi Dosage 1998-01-25 00:00:00 Completed [facility] Haemophilus influenzae type b vaccine, conjugate unspecified formulation 1998-01-25 00:00:00 Completed [facility] MMR 1998-01-25 00:00:00 Completed [facility] Poliovirus, Live, Oral, Trivalent 1998-01-25 00:00:00 Completed [facility] DTaP, Unspecified Formulation 1998-01-25 00:00:00 Completed [facility] Hep B, Adol or Pedi Dosage 1998-01-25 00:00:00 Completed [facility] Haemophilus influenzae type b vaccine, conjugate unspecified formulation 1998-01-25 00:00:00 Completed [facility] MMR 1998-01-25 00:00:00 Completed [facility] Poliovirus, Live, Oral, Trivalent 1998-01-25 00:00:00 Completed [facility] DTaP, Unspecified Formulation 1998-01-25 00:00:00 Completed [facility] Hep B, Adol or Pedi Dosage 1998-01-25 00:00:00 Completed [facility] Haemophilus influenzae type b vaccine, conjugate unspecified formulation 1998-01-25 00:00:00 Completed [facility] MMR 1998-01-25 00:00:00 Completed [facility] Poliovirus, Live, Oral, Trivalent 1998-01-25 00:00:00 Completed [facility] DTaP, Unspecified Formulation 1998-01-25 00:00:00 Completed Hep B, Adol or Pedi Dosage 1998-01-25 00:00:00 Completed Haemophilus influenzae type b vaccine, conjugate unspecified formulation 1998-01-25 00:00:00 Completed MMR 1998-01-25 00:00:00 Completed Poliovirus, Live, Oral, Trivalent 1998-01-25 00:00:00 Completed DTaP, Unspecified Formulation 1998-01-25 00:00:00 Completed [facility] Hep B, Adol or Pedi Dosage 1998-01-25 00:00:00 Completed [facility] Haemophilus influenzae type b vaccine, conjugate unspecified formulation 1998-01-25 00:00:00 Completed [facility] MMR 1998-01-25 00:00:00 Completed [facility] Poliovirus, Live, Oral, Trivalent 1998-01-25 00:00:00 Completed [facility] DTaP, Unspecified Formulation 1998-01-25 00:00:00 Completed [facility] Hep B, Adol or Pedi Dosage 1998-01-25 00:00:00 Completed [facility] Haemophilus influenzae type b vaccine, conjugate unspecified formulation 1998-01-25 00:00:00 Completed [facility] MMR 1998-01-25 00:00:00 Completed [facility] Poliovirus, Live, Oral, Trivalent 1998-01-25 00:00:00 Completed [facility] DTaP, Unspecified Formulation 1998-01-25 00:00:00 Completed [facility] Hep B, Adol or Pedi Dosage 1998-01-25 00:00:00 Completed [facility] Haemophilus influenzae type b vaccine, conjugate unspecified formulation 1998-01-25 00:00:00 Completed [facility] MMR 1998-01-25 00:00:00 Completed [facility] Poliovirus, Live, Oral, Trivalent 1998-01-25 00:00:00 Completed [facility] DTaP, Unspecified Formulation 1998-01-25 00:00:00 Completed [facility] Hep B, Adol or Pedi Dosage 1998-01-25 00:00:00 Completed [facility] Haemophilus influenzae type b vaccine, conjugate unspecified formulation 1998-01-25 00:00:00 Completed [facility] MMR 1998-01-25 00:00:00 Completed [facility] Poliovirus, Live, Oral, Trivalent 1998-01-25 00:00:00 Completed [facility] DTaP, Unspecified Formulation 1998-01-25 00:00:00 Completed [facility] Hep B, Adol or Pedi Dosage 1998-01-25 00:00:00 Completed [facility] Haemophilus influenzae type b vaccine, conjugate unspecified formulation 1998-01-25 00:00:00 Completed [facility] MMR 1998-01-25 00:00:00 Completed [facility] Poliovirus, Live, Oral, Trivalent 1998-01-25 00:00:00 Completed [facility] DTaP, Unspecified Formulation 1998-01-25 00:00:00 Completed [facility] Hep B, Adol or Pedi Dosage 1998-01-25 00:00:00 Completed [facility] Haemophilus influenzae type b vaccine, conjugate unspecified formulation 1998-01-25 00:00:00 Completed [facility] MMR 1998-01-25 00:00:00 Completed [facility] Poliovirus, Live, Oral, Trivalent 1998-01-25 00:00:00 Completed [facility] DTaP, Unspecified Formulation 1998-01-25 00:00:00 Completed [facility] Hep B, Adol or Pedi Dosage 1998-01-25 00:00:00 Completed [facility] Haemophilus influenzae type b vaccine, conjugate unspecified formulation 1998-01-25 00:00:00 Completed [facility] MMR 1998-01-25 00:00:00 Completed [facility] Poliovirus, Live, Oral, Trivalent 1998-01-25 00:00:00 Completed [facility] DTaP, Unspecified Formulation 1998-01-25 00:00:00 Completed [facility] Hep B, Adol or Pedi Dosage 1998-01-25 00:00:00 Completed [facility] Haemophilus influenzae type b vaccine, conjugate unspecified formulation 1998-01-25 00:00:00 Completed [facility] MMR 1998-01-25 00:00:00 Completed [facility] Poliovirus, Live, Oral, Trivalent 1998-01-25 00:00:00 Completed [facility] DTaP, Unspecified Formulation 1998-01-25 00:00:00 Completed [facility] Hep B, Adol or Pedi Dosage 1998-01-25 00:00:00 Completed [facility] Haemophilus influenzae type b vaccine, conjugate unspecified formulation 1998-01-25 00:00:00 Completed [facility] MMR 1998-01-25 00:00:00 Completed [facility] Poliovirus, Live, Oral, Trivalent 1998-01-25 00:00:00 Completed [facility] DTaP, Unspecified Formulation 1998-01-25 00:00:00 Completed [facility] Hep B, Adol or Pedi Dosage 1998-01-25 00:00:00 Completed [facility] Haemophilus influenzae type b vaccine, conjugate unspecified formulation 1998-01-25 00:00:00 Completed [facility] MMR 1998-01-25 00:00:00 Completed [facility] Poliovirus, Live, Oral, Trivalent 1998-01-25 00:00:00 Completed [facility] MMR 1996-01-27 00:00:00 Completed [facility] MMR 1996-01-27 00:00:00 Completed [facility] MMR 1996-01-27 00:00:00 Completed [facility] MMR 1996-01-27 00:00:00 Completed [facility] MMR 1996-01-27 00:00:00 Completed [facility] MMR 1996-01-27 00:00:00 Completed [facility] MMR 1996-01-27 00:00:00 Completed [facility] MMR 1996-01-27 00:00:00 Completed [facility] MMR 1996-01-27 00:00:00 Completed [facility] MMR 1996-01-27 00:00:00 Completed MMR 1996-01-27 00:00:00 Completed [facility] MMR 1996-01-27 00:00:00 Completed [facility] MMR 1996-01-27 00:00:00 Completed [facility] MMR 1996-01-27 00:00:00 Completed [facility] MMR 1996-01-27 00:00:00 Completed [facility] MMR 1996-01-27 00:00:00 Completed [facility] MMR 1996-01-27 00:00:00 Completed [facility] MMR 1996-01-27 00:00:00 Completed [facility] MMR 1996-01-27 00:00:00 Completed [facility] MMR 1996-01-27 00:00:00 Completed [facility] MMR 1995-11-13 00:00:00 Completed [facility] DPT/HIB 1995-11-13 00:00:00 Completed [facility] DPT/HIB 1995-11-13 00:00:00 Completed [facility] MMR 1995-11-13 00:00:00 Completed [facility] DPT/HIB 1995-11-13 00:00:00 Completed [facility] MMR 1995-11-13 00:00:00 Completed [facility] DPT/HIB 1995-11-13 00:00:00 Completed [facility] MMR 1995-11-13 00:00:00 Completed [facility] DPT/HIB 1995-11-13 00:00:00 Completed [facility] MMR 1995-11-13 00:00:00 Completed [facility] DPT/HIB 1995-11-13 00:00:00 Completed [facility] MMR 1995-11-13 00:00:00 Completed [facility] DPT/HIB 1995-11-13 00:00:00 Completed [facility] MMR 1995-11-13 00:00:00 Completed [facility] DPT/HIB 1995-11-13 00:00:00 Completed [facility] MMR 1995-11-13 00:00:00 Completed [facility] DPT/HIB 1995-11-13 00:00:00 Completed [facility] MMR 1995-11-13 00:00:00 Completed [facility] DPT/HIB 1995-11-13 00:00:00 Completed MMR 1995-11-13 00:00:00 Completed DPT/HIB 1995-11-13 00:00:00 Completed [facility] MMR 1995-11-13 00:00:00 Completed [facility] DPT/HIB 1995-11-13 00:00:00 Completed [facility] MMR 1995-11-13 00:00:00 Completed [facility] DPT/HIB 1995-11-13 00:00:00 Completed [facility] MMR 1995-11-13 00:00:00 Completed [facility] DPT/HIB 1995-11-13 00:00:00 Completed [facility] MMR 1995-11-13 00:00:00 Completed [facility] DPT/HIB 1995-11-13 00:00:00 Completed [facility] MMR 1995-11-13 00:00:00 Completed [facility] DPT/HIB 1995-11-13 00:00:00 Completed [facility] MMR 1995-11-13 00:00:00 Completed [facility] DPT/HIB 1995-11-13 00:00:00 Completed [facility] MMR 1995-11-13 00:00:00 Completed [facility] DPT/HIB 1995-11-13 00:00:00 Completed [facility] MMR 1995-11-13 00:00:00 Completed [facility] DPT/HIB 1995-11-13 00:00:00 Completed [facility] MMR 1995-11-13 00:00:00 Completed [facility] DPT/HIB 1995-11-13 00:00:00 Completed [facility] MMR 1995-11-13 00:00:00 Completed [facility] DTaP, Unspecified Formulation Unknown Completed [facility] DPT/HIB Unknown Completed [facility] Hepatitis A Adult Unknown Completed [facility] HEPATITIS A Unknown Completed [facility] Hep B, Adol or Pedi Dosage Unknown Completed [facility] Haemophilus influenzae type b vaccine, conjugate unspecified formulation Unknown Completed [facility] Meningococcal Polysaccharide (groups A, C, Y and W-135) conjugate vaccine (MCV4P) Unknown Completed [facility] MMR Unknown Completed [facility] Poliovirus, Live, Oral, Trivalent Unknown Completed [facility] TDAP Unknown Completed [facility] Varicella (varivax)(chicken pox) Unknown Completed [facility] DTaP, Unspecified Formulation Unknown Completed [facility] DPT/HIB Unknown Completed [facility] Hepatitis A Adult Unknown Completed [facility] HEPATITIS A Unknown Completed [facility] Hep B, Adol or Pedi Dosage Unknown Completed [facility] Haemophilus influenzae type b vaccine, conjugate unspecified formulation Unknown Completed [facility] Meningococcal Polysaccharide (groups A, C, Y and W-135) conjugate vaccine (MCV4P) Unknown Completed [facility] MMR Unknown Completed [facility] Poliovirus, Live, Oral, Trivalent Unknown Completed [facility] TDAP Unknown Completed [facility] Varicella (varivax)(chicken pox) Unknown Completed [facility] DTaP, Unspecified Formulation Unknown Completed [facility] DPT/HIB Unknown Completed [facility] Hepatitis A Adult [facility] Hep B, Adol or Pedi Dosage Unknown Completed [facility] Haemophilus influenzae type b vaccine, conjugate unspecified formulation Unknown Completed [facility] Meningococcal Polysaccharide (groups A, C, Y and W-135) conjugate vaccine (MCV4P) Unknown Completed [facility] MMR Unknown Completed [facility] Poliovirus, Live, Oral, Trivalent Unknown Completed [facility] TDAP Unknown Completed [facility] Varicella (varivax)(chicken pox) Unknown Completed [facility] DTaP, Unspecified Formulation Unknown Completed [facility] DPT/HIB Unknown Completed [facility] Hepatitis A Adult Unknown [facility] Com[facility] Hep B, Adol or Pedi Dosage Unknown Completed [facility] Haemophilus influenzae type b vaccine, conjugate unspecified formulation Unknown Completed [facility] Meningococcal Polysaccharide (groups A, C, Y and W-135) conjugate vaccine (MCV4P) Unknown Completed [facility] MMR Unknown Completed [facility] Poliovirus, Live, Oral, Trivalent Unknown Completed [facility] TDAP Unknown Completed [facility] Varicella (varivax)(chicken pox) Unknown Completed [facility] DTaP, Unspecified Formulation Unknown Completed [facility] DPT/HIB Unknown Completed [facility] Hepatitis A Adult Unknown [facility] Com[facility] Hep B, Adol or Pedi Dosage Unknown Completed [facility] Haemophilus influenzae type b vaccine, conjugate unspecified formulation Unknown Completed [facility] Meningococcal Polysaccharide (groups A, C, Y and W-135) conjugate vaccine (MCV4P) Unknown Completed [facility] MMR Unknown Completed [facility] Poliovirus, Live, Oral, Trivalent Unknown Completed [facility] TDAP Unknown Completed [facility] Varicella (varivax)(chicken pox) Unknown Completed [facility] DTaP, Unspecified Formulation Unknown Completed [facility] DPT/HIB Unknown Completed [facility] Hepatitis A Adult Unknown [facility] Hep B, Adol or Pedi Dosage Unknown Completed [facility] Haemophilus influenzae type b vaccine, conjugate unspecified formulation Unknown Completed [facility] Meningococcal Polysaccharide (groups A, C, Y and W-135) conjugate vaccine (MCV4P) Unknown Completed [facility] MMR Unknown Completed [facility] Poliovirus, Live, Oral, Trivalent Unknown Completed [facility] TDAP Unknown Completed [facility] Varicella (varivax)(chicken pox) Unknown Completed [facility] DTaP, Unspecified Formulation Unknown Completed [facility] DPT/HIB Unknown Completed [facility] Hepatitis A Adult Unknown [facility] Com[facility] Hep B, Adol or Pedi Dosage Unknown Completed [facility] Haemophilus influenzae type b vaccine, conjugate unspecified formulation Unknown Completed [facility] Meningococcal Polysaccharide (groups A, C, Y and W-135) conjugate vaccine (MCV4P) Unknown Completed [facility] MMR Unknown Completed [facility] Poliovirus, Live, Oral, Trivalent Unknown Completed [facility] TDAP Unknown Completed [facility] Varicella (varivax)(chicken pox) Unknown Completed [facility] DTaP, Unspecified Formulation Unknown Completed [facility] DPT/HIB Unknown Completed [facility] Hepatitis A Adult Unknown [facility] Hep B, Adol or Pedi Dosage Unknown Completed [facility] Haemophilus influenzae type b vaccine, conjugate unspecified formulation Unknown Completed [facility] Meningococcal Polysaccharide (groups A, C, Y and W-135) conjugate vaccine (MCV4P) Unknown Completed [facility] MMR Unknown Completed [facility] Poliovirus, Live, Oral, Trivalent Unknown Completed [facility] TDAP Unknown Completed [facility] Varicella (varivax)(chicken pox) Unknown Completed [facility] DTaP, Unspecified Formulation Unknown Completed [facility] DPT/HIB Unknown Completed [facility] Hepatitis A Adult Unknown [facility] Hep B, Adol or Pedi Dosage Unknown Completed [facility] Haemophilus influenzae type b vaccine, conjugate unspecified formulation Unknown Completed [facility] Meningococcal Polysaccharide (groups A, C, Y and W-135) conjugate vaccine (MCV4P) Unknown Completed [facility] MMR Unknown Completed [facility] Poliovirus, Live, Oral, Trivalent Unknown Completed [facility] TDAP Unknown Completed [facility] Varicella (varivax)(chicken pox) Unknown Completed [facility] DTaP, Unspecified Formulation Unknown Completed [facility] DPT/HIB Unknown Completed [facility] Hepatitis A Adult Unknown [facility] B, Adol or Pedi Dosage Unknown Completed [facility] Haemophilus influenzae type b vaccine, conjugate unspecified formulation Unknown Completed [facility] Meningococcal Polysaccharide (groups A, C, Y and W-135) conjugate vaccine (MCV4P) Unknown Completed [facility] MMR Unknown Completed [facility] Poliovirus, Live, Oral, Trivalent Unknown Completed [facility] TDAP Unknown Completed [facility] Varicella (varivax)(chicken pox) Unknown Completed [facility] DTaP, Unspecified Formulation Unknown Completed [facility] DPT/HIB Unknown Completed [facility] Hepatitis A Adult Unknown Completed [facility] Hep B, Adol or Pedi Dosage Unknown Completed [facility] Haemophilus influenzae type b vaccine, conjugate unspecified formulation Unknown Completed [facility] Meningococcal Polysaccharide (groups A, C, Y and W-135) conjugate vaccine (MCV4P) Unknown Completed [facility] MMR Unknown Completed [facility] Poliovirus, Live, Oral, Trivalent Unknown Completed [facility] TDAP Unknown Completed [facility] Varicella (varivax)(chicken pox) Unknown Completed [facility] DTaP, Unspecified Formulation Unknown Completed [facility] DPT/HIB Unknown Completed [facility] Hepatitis A Adult Unknown [facility] Hep B, Adol or Pedi Dosage Unknown Completed [facility] Haemophilus influenzae type b vaccine, conjugate unspecified formulation Unknown Completed [facility] Meningococcal Polysaccharide (groups A, C, Y and W-135) conjugate vaccine (MCV4P) Unknown Completed [facility] MMR Unknown Completed [facility] Poliovirus, Live, Oral, Trivalent Unknown Completed [facility] TDAP Unknown Completed [facility] Varicella (varivax)(chicken pox) Unknown Completed [facility] DTaP, Unspecified Formulation Unknown Completed [facility] DPT/HIB Unknown Completed [facility] Hepatitis A Adult Unknown [facility] Hep B, Adol or Pedi Dosage Unknown Completed [facility] Haemophilus influenzae type b vaccine, conjugate unspecified formulation Unknown Completed [facility] Meningococcal Polysaccharide (groups A, C, Y and W-135) conjugate vaccine (MCV4P) Unknown Completed [facility] MMR Unknown Completed [facility] Poliovirus, Live, Oral, Trivalent Unknown Completed [facility] TDAP Unknown Completed [facility] Varicella (varivax)(chicken pox) Unknown Completed [facility] DTaP, Unspecified Formulation Unknown Completed [facility] DPT/HIB Unknown Completed [facility] Hepatitis A Adult Unknown [facility] Com[facility] Hep B, Adol or Pedi Dosage Unknown Completed [facility] Haemophilus influenzae type b vaccine, conjugate unspecified formulation Unknown Completed [facility] Meningococcal Polysaccharide (groups A, C, Y and W-135) conjugate vaccine (MCV4P) Unknown Completed [facility] MMR Unknown Completed [facility] Poliovirus, Live, Oral, Trivalent Unknown Completed [facility] TDAP Unknown Completed [facility] Varicella (varivax)(chicken pox) Unknown Completed [facility] DTaP, Unspecified Formulation Unknown Completed [facility] DPT/HIB Unknown Completed [facility] Hepatitis A Adult Unknown [facility] Hep B, Adol or Pedi Dosage Unknown Completed [facility] Haemophilus influenzae type b vaccine, conjugate unspecified formulation Unknown Completed [facility] Meningococcal Polysaccharide (groups A, C, Y and W-135) conjugate vaccine (MCV4P) Unknown Completed [facility] MMR Unknown Completed [facility] Poliovirus, Live, Oral, Trivalent Unknown Completed [facility] TDAP Unknown Completed [facility] Varicella (varivax)(chicken pox) Unknown Completed [facility] DPT/HIB Unknown Completed [facility] Hepatitis A Adult Unknown [facility] (groups A, C, Y and W-135) conjugate vaccine (MCV4P) Unknown Completed [facility] TDAP Unknown Completed [facility] Varicella (varivax)(chicken pox) Unknown Completed [facility] DTaP, Unspecified Formulation Unknown Completed [facility] Hep B, Adol or Pedi Dosage Unknown Completed [facility] Haemophilus influenzae type b vaccine, conjugate unspecified formulation Unknown Completed [facility] MMR Unknown Completed [facility] Poliovirus, Live, Oral, Trivalent Unknown Completed [facility] DTaP, Unspecified Formulation Unknown Completed [facility] DPT/HIB Unknown Completed [facility] Hepatitis A Adult Unknown [facility] Com[facility] Hep B, Adol or Pedi Dosage Unknown Completed [facility] Haemophilus influenzae type b vaccine, conjugate unspecified formulation Unknown Completed [facility] Meningococcal Polysaccharide (groups A, C, Y and W-135) conjugate vaccine (MCV4P) Unknown Completed [facility] MMR Unknown Completed [facility] Poliovirus, Live, Oral, Trivalent Unknown Completed [facility] TDAP Unknown Completed [facility] Varicella (varivax)(chicken pox) Unknown Completed [facility] DTaP, Unspecified Formulation Unknown Completed [facility] DPT/HIB Unknown Completed [facility] Hepatitis A Adult Unknown [facility], [facility]os[facility] Completed [facility] Haemophilus influenzae type b vaccine, conjugate unspecified formulation Unknown Completed [facility] Meningococcal Polysaccharide (groups A, C, Y and W-135) conjugate vaccine (MCV4P) Unknown Completed [facility] MMR Unknown Completed [facility] Poliovirus, Live, Oral, Trivalent Unknown Completed [facility] TDAP Unknown Completed [facility] Varicella (varivax)(chicken pox) Unknown Completed [facility] DTaP, Unspecified Formulation Unknown Completed [facility] DPT/HIB Unknown Completed [facility] Hepatitis A Adult Unknown [facility] Com[facility] Hep B, Adol or Pedi Dosage Unknown Completed [facility] Haemophilus influenzae type b vaccine, conjugate unspecified formulation Unknown Completed [facility] Meningococcal Polysaccharide (groups A, C, Y and W-135) conjugate vaccine (MCV4P) Unknown Completed [facility] MMR Unknown Completed [facility] Poliovirus, Live, Oral, Trivalent Unknown Completed [facility] TDAP Unknown Completed [facility] Varicella (varivax)(chicken pox) Unknown Completed [facility] DTaP, Unspecified Formulation Unknown Completed [facility] DPT/HIB Unknown Completed [facility] Hepatitis A Adult Unknown [facility] Com[facility] Hep B, Adol or Pedi Dosage Unknown Completed [facility] Haemophilus influenzae type b vaccine, conjugate unspecified formulation Unknown Completed [facility] Meningococcal Polysaccharide (groups A, C, Y and W-135) conjugate vaccine (MCV4P) Unknown Completed [facility] MMR Unknown Completed [facility] Poliovirus, Live, Oral, Trivalent Unknown Completed [facility] TDAP Unknown Completed [facility] Varicella (varivax)(chicken pox) Unknown Completed [facility] DTaP, Unspecified Formulation Unknown Completed [facility] DPT/HIB Unknown Completed [facility] Hepatitis A Adult [facility] Com[facility] Hep B, Adol or Pedi Dosage Unknown Completed [facility] Haemophilus influenzae type b vaccine, conjugate unspecified formulation Unknown Completed [facility] Meningococcal Polysaccharide (groups A, C, Y and W-135) conjugate vaccine (MCV4P) Unknown Completed [facility] MMR Unknown Completed [facility] Poliovirus, Live, Oral, Trivalent Unknown Completed [facility] TDAP Unknown Completed [facility] Varicella (varivax)(chicken pox) Unknown Completed [facility] DTaP, Unspecified Formulation Unknown Completed [facility] DPT/HIB Unknown Completed [facility] Hepatitis A Adult Unknown [facility] Com[facility] Hep B, Adol or Pedi Dosage Unknown Completed [facility] Haemophilus influenzae type b vaccine, conjugate unspecified formulation Unknown Completed [facility] Meningococcal Polysaccharide (groups A, C, Y and W-135) conjugate vaccine (MCV4P) Unknown Completed [facility] MMR Unknown Completed [facility] Poliovirus, Live, Oral, Trivalent Unknown Completed [facility] TDAP Unknown Completed [facility] Varicella (varivax)(chicken pox) Unknown Completed [facility] DTaP, Unspecified Formulation Unknown Completed [facility] DPT/HIB Unknown Completed [facility] A Adult [facility] Hep B, Adol or Pedi Dosage Unknown Completed [facility] Haemophilus influenzae type b vaccine, conjugate unspecified formulation Unknown Completed [facility] Meningococcal Polysaccharide (groups A, C, Y and W-135) conjugate vaccine (MCV4P) Unknown Completed [facility] MMR Unknown Completed [facility] Poliovirus, Live, Oral, Trivalent Unknown Completed [facility] TDAP Unknown Completed [facility] Varicella (varivax)(chicken pox) Unknown Completed [facility] DPT/HIB Unknown Completed [facility] Adult [facility] Meningococcal Polysaccharide (groups A, C, Y and W-135) conjugate vaccine (MCV4P) Unknown Completed [facility] TDAP Unknown Completed [facility] Varicella (varivax)(chicken pox) Unknown Completed [facility] DTaP, Unspecified Formulation Unknown Completed [facility] Hep B, Adol or Pedi Dosage Unknown Completed [facility] Haemophilus influenzae type b vaccine, conjugate unspecified formulation Unknown Completed [facility] MMR Unknown Completed [facility] Poliovirus, Live, Oral, Trivalent Unknown Completed [facility] DTaP, Unspecified Formulation Unknown Completed [facility] DPT/HIB Unknown Completed [facility]atitis A Adult [facility] Hep B, Adol or Pedi Dosage Unknown Completed [facility] Haemophilus influenzae type b vaccine, conjugate unspecified formulation Unknown Completed [facility] Meningococcal Polysaccharide (groups A, C, Y and W-135) conjugate vaccine (MCV4P) Unknown Completed [facility] MMR Unknown Completed [facility] Poliovirus, Live, Oral, Trivalent Unknown Completed [facility] TDAP Unknown Completed [facility] Varicella (varivax)(chicken pox) Unknown Completed [facility] DTaP, Unspecified Formulation Unknown Completed [facility] DPT/HIB Unknown Completed [facility] Hepatitis A Adult [facility] Com[facility] Hep B, Adol or Pedi Dosage Unknown Completed [facility] Haemophilus influenzae type b vaccine, conjugate unspecified formulation Unknown Completed [facility] Meningococcal Polysaccharide (groups A, C, Y and W-135) conjugate vaccine (MCV4P) Unknown Completed [facility] MMR Unknown Completed [facility] Poliovirus, Live, Oral, Trivalent Unknown Completed [facility] TDAP Unknown Completed [facility] Varicella (varivax)(chicken pox) Unknown Completed [facility] DTaP, Unspecified Formulation Unknown Completed [facility] DPT/HIB Unknown Completed [facility]atitis A Adult [facility] Hep B, Adol or Pedi Dosage Unknown Completed [facility] Haemophilus influenzae type b vaccine, conjugate unspecified formulation Unknown Completed [facility] Meningococcal Polysaccharide (groups A, C, Y and W-135) conjugate vaccine (MCV4P) Unknown Completed [facility] MMR Unknown Completed [facility] Poliovirus, Live, Oral, Trivalent Unknown Completed [facility] TDAP Unknown Completed [facility] Varicella (varivax)(chicken pox) Unknown Completed [facility] DTaP, Unspecified Formulation Unknown Completed [facility] DPT/HIB Unknown Completed [facility] Hepatitis A Adult [facility] Hep B, Adol or Pedi Dosage Unknown Completed [facility] Haemophilus influenzae type b vaccine, conjugate unspecified formulation Unknown Completed [facility] Meningococcal Polysaccharide (groups A, C, Y and W-135) conjugate vaccine (MCV4P) Unknown Completed [facility] MMR Unknown Completed [facility] Poliovirus, Live, Oral, Trivalent Unknown Completed [facility] TDAP Unknown Completed [facility] Varicella (varivax)(chicken pox) Unknown Completed [facility] DTaP, Unspecified Formulation Unknown Completed [facility] DPT/HIB Unknown Completed [facility] Hepatitis A Adult [facility] Com[facility] Hep B, Adol or Pedi Dosage Unknown Completed [facility] Haemophilus influenzae type b vaccine, conjugate unspecified formulation Unknown Completed [facility] Meningococcal Polysaccharide (groups A, C, Y and W-135) conjugate vaccine (MCV4P) Unknown Completed [facility] MMR Unknown Completed [facility] Poliovirus, Live, Oral, Trivalent Unknown Completed [facility] TDAP Unknown Completed [facility] Varicella (varivax)(chicken pox) Unknown Completed [facility] DTaP, Unspecified Formulation Unknown Completed [facility] DPT/HIB Unknown Completed [facility]atitis A Adult [facility] Hep B, Adol or Pedi Dosage Unknown Completed [facility] Haemophilus influenzae type b vaccine, conjugate unspecified formulation Unknown Completed [facility] Meningococcal Polysaccharide (groups A, C, Y and W-135) conjugate vaccine (MCV4P) Unknown Completed [facility] MMR Unknown Completed [facility] Poliovirus, Live, Oral, Trivalent Unknown Completed [facility] TDAP Unknown Completed [facility] Varicella (varivax)(chicken pox) Unknown Completed [facility] DTaP, Unspecified Formulation Unknown Completed [facility] DPT/HIB Unknown Completed [facility]atitis A Adult [facility] Hep B, Adol or Pedi Dosage Unknown Completed [facility] Haemophilus influenzae type b vaccine, conjugate unspecified formulation Unknown Completed [facility] Meningococcal Polysaccharide (groups A, C, Y and W-135) conjugate vaccine (MCV4P) Unknown Completed [facility] MMR Unknown Completed [facility] Poliovirus, Live, Oral, Trivalent Unknown Completed [facility] TDAP Unknown Completed [facility] Varicella (varivax)(chicken pox) Unknown Completed [facility] DTaP, Unspecified Formulation Unknown Completed [facility] DPT/HIB Unknown Completed [facility]atitis A Adult [facility] Com[facility] Hep B, Adol or Pedi Dosage Unknown Completed [facility] Haemophilus influenzae type b vaccine, conjugate unspecified formulation Unknown Completed [facility] Meningococcal Polysaccharide (groups A, C, Y and W-135) conjugate vaccine (MCV4P) Unknown Completed [facility] MMR Unknown Completed [facility] Poliovirus, Live, Oral, Trivalent Unknown Completed [facility] TDAP Unknown Completed [facility] Varicella (varivax)(chicken pox) Unknown Completed [facility] DTaP, Unspecified Formulation Unknown Completed [facility] DPT/HIB Unknown Completed [facility]atitis A Adult [facility] Completed [facility] Hep B, Adol or Pedi Dosage Unknown Completed [facility] Haemophilus influenzae type b vaccine, conjugate unspecified formulation Unknown Completed [facility] Meningococcal Polysaccharide (groups A, C, Y and W-135) conjugate vaccine (MCV4P) Unknown Completed [facility] MMR Unknown Completed [facility] Poliovirus, Live, Oral, Trivalent Unknown Completed [facility] TDAP Unknown Completed [facility] Varicella (varivax)(chicken pox) Unknown Completed [facility] DTaP, Unspecified Formulation Unknown Completed [facility] DPT/HIB Unknown Completed [facility]atitis A Adult [facility] Com[facility] Hep B, Adol or Pedi Dosage Unknown Completed [facility] Haemophilus influenzae type b vaccine, conjugate unspecified formulation Unknown Completed [facility] Meningococcal Polysaccharide (groups A, C, Y and W-135) conjugate vaccine (MCV4P) Unknown Completed [facility] MMR Unknown Completed [facility] Poliovirus, Live, Oral, Trivalent Unknown Completed [facility] TDAP Unknown Completed [facility] Varicella (varivax)(chicken pox) Unknown Completed [facility] DTaP, Unspecified Formulation Unknown Completed [facility] DPT/HIB Unknown Completed [facility] Hepatitis A Adult [facility] Com[facility] Hep B, Adol or Pedi Dosage Unknown Completed [facility] Haemophilus influenzae type b vaccine, conjugate unspecified formulation Unknown Completed [facility] Meningococcal Polysaccharide (groups A, C, Y and W-135) conjugate vaccine (MCV4P) Unknown Completed [facility] MMR Unknown Completed [facility] Poliovirus, Live, Oral, Trivalent Unknown Completed [facility] TDAP Unknown Completed [facility] Varicella (varivax)(chicken pox) Unknown Completed [facility] DTaP, Unspecified Formulation Unknown Completed [facility] DPT/HIB Unknown Completed [facility] Hepatitis A Adult [facility] Completed [facility] Hep B, Adol or Pedi Dosage Unknown Completed [facility] Haemophilus influenzae type b vaccine, conjugate unspecified formulation Unknown Completed [facility] Meningococcal Polysaccharide (groups A, C, Y and W-135) conjugate vaccine (MCV4P) Unknown Completed [facility] MMR Unknown Completed [facility] Poliovirus, Live, Oral, Trivalent Unknown Completed [facility] TDAP Unknown Completed [facility] Varicella (varivax)(chicken pox) Unknown Completed [facility] DTaP, Unspecified Formulation Unknown Completed [facility] DPT/HIB Unknown Completed [facility] Hepatitis A Adult [facility] Completed [facility] Hep B, Adol or Pedi Dosage Unknown Completed [facility] Haemophilus influenzae type b vaccine, conjugate unspecified formulation Unknown Completed [facility] Meningococcal Polysaccharide (groups A, C, Y and W-135) conjugate vaccine (MCV4P) Unknown Completed [facility] MMR Unknown Completed [facility] Poliovirus, Live, Oral, Trivalent Unknown Completed [facility] TDAP Unknown Completed [facility] Varicella (varivax)(chicken pox) Unknown Completed [facility] DTaP, Unspecified Formulation Unknown Completed [facility] DPT/HIB Unknown Completed [facility] Hepatitis A Adult [facility] Completed [facility] Hep B, Adol or Pedi Dosage Unknown Completed [facility] Haemophilus influenzae type b vaccine, conjugate unspecified formulation Unknown Completed [facility] Meningococcal Polysaccharide (groups A, C, Y and W-135) conjugate vaccine (MCV4P) Unknown Completed [facility] MMR Unknown Completed [facility] Poliovirus, Live, Oral, Trivalent Unknown Completed [facility] TDAP Unknown Completed [facility] Varicella (varivax)(chicken pox) Unknown Completed [facility] DTaP, Unspecified Formulation Unknown Completed [facility] DPT/HIB Unknown Completed [facility] Hepatitis A Adult [facility] Completed [facility] Hep B, Adol or Pedi Dosage Unknown Completed [facility] Haemophilus influenzae type b vaccine, conjugate unspecified formulation Unknown Completed [facility] Meningococcal Polysaccharide (groups A, C, Y and W-135) conjugate vaccine (MCV4P) Unknown Completed [facility] MMR Unknown Completed [facility] Poliovirus, Live, Oral, Trivalent Unknown Completed [facility] TDAP Unknown Completed [facility] Varicella (varivax)(chicken pox) Unknown Completed [facility] DTaP, Unspecified Formulation Unknown Completed [facility] DPT/HIB Unknown Completed [facility] Hepatitis A Adult [facility] Hep B, Adol or Pedi Dosage Unknown Completed [facility] Haemophilus influenzae type b vaccine, conjugate unspecified formulation Unknown Completed [facility] Meningococcal Polysaccharide (groups A, C, Y and W-135) conjugate vaccine (MCV4P) Unknown Completed [facility] MMR Unknown Completed [facility] Poliovirus, Live, Oral, Trivalent Unknown Completed [facility] TDAP Unknown Completed [facility] Varicella (varivax)(chicken pox) Unknown Completed [facility] DTaP, Unspecified Formulation Unknown Completed [facility] DPT/HIB Unknown Completed [facility]atitis A Adult [facility] Hep B, Adol or Pedi Dosage Unknown Completed [facility] Haemophilus influenzae type b vaccine, conjugate unspecified formulation Unknown Completed [facility] Meningococcal Polysaccharide (groups A, C, Y and W-135) conjugate vaccine (MCV4P) Unknown Completed [facility] MMR Unknown Completed [facility] Poliovirus, Live, Oral, Trivalent Unknown Completed [facility] TDAP Unknown Completed [facility] Varicella (varivax)(chicken pox) Unknown Completed [facility] DTaP, Unspecified Formulation Unknown Completed [facility] DPT/HIB Unknown Completed [facility] Hepatitis A Adult [facility] Hep B, Adol or Pedi Dosage Unknown Completed [facility] Haemophilus influenzae type b vaccine, conjugate unspecified formulation Unknown Completed [facility] Meningococcal Polysaccharide (groups A, C, Y and W-135) conjugate vaccine (MCV4P) Unknown Completed [facility] MMR Unknown Completed [facility] Poliovirus, Live, Oral, Trivalent Unknown Completed [facility] TDAP Unknown Completed [facility] Varicella (varivax)(chicken pox) Unknown Completed [facility] DTaP, Unspecified Formulation Unknown Completed [facility] DPT/HIB Unknown Completed [facility] Hepatitis A Adult [facility] Hep B, Adol or Pedi Dosage Unknown Completed [facility] Haemophilus influenzae type b vaccine, conjugate unspecified formulation Unknown Completed [facility] Meningococcal Polysaccharide (groups A, C, Y and W-135) conjugate vaccine (MCV4P) Unknown Completed [facility] MMR Unknown Completed [facility] Poliovirus, Live, Oral, Trivalent Unknown Completed [facility] TDAP Unknown Completed [facility] Varicella (varivax)(chicken pox) Unknown Completed [facility] DTaP, Unspecified Formulation Unknown Completed [facility] DPT/HIB Unknown Completed [facility] Hepatitis A Adult [facility] Hep B, Adol or Pedi Dosage Unknown Completed [facility] Haemophilus influenzae type b vaccine, conjugate unspecified formulation Unknown Completed [facility] Meningococcal Polysaccharide (groups A, C, Y and W-135) conjugate vaccine (MCV4P) Unknown Completed [facility] MMR Unknown Completed [facility] Poliovirus, Live, Oral, Trivalent Unknown Completed [facility] TDAP Unknown Completed [facility] Varicella (varivax)(chicken pox) Unknown Completed [facility] DTaP, Unspecified Formulation Unknown Completed [facility] DPT/HIB Unknown Completed [facility] Hepatitis A Adult [facility] Hep B, Adol or Pedi Dosage Unknown Completed [facility] Haemophilus influenzae type b vaccine, conjugate unspecified formulation Unknown Completed [facility] Meningococcal Polysaccharide (groups A, C, Y and W-135) conjugate vaccine (MCV4P) Unknown Completed [facility] MMR Unknown Completed [facility] Poliovirus, Live, Oral, Trivalent Unknown Completed [facility] TDAP Unknown Completed [facility] Varicella (varivax)(chicken pox) Unknown Completed [facility] DTaP, Unspecified Formulation Unknown Completed [facility] DPT/HIB Unknown Completed [facility] Hepatitis A Adult [facility] Hep B, Adol or Pedi Dosage Unknown Completed [facility] Haemophilus influenzae type b vaccine, conjugate unspecified formulation Unknown Completed [facility] Meningococcal Polysaccharide (groups A, C, Y and W-135) conjugate vaccine (MCV4P) Unknown Completed [facility] MMR Unknown Completed [facility] Poliovirus, Live, Oral, Trivalent Unknown Completed [facility] TDAP Unknown Completed [facility] Varicella (varivax)(chicken pox) Unknown Completed [facility] DPT/HIB Unknown Completed [facility]atitis A Adult [facility] Com[facility] Meningococcal Polysaccharide (groups A, C, Y and W-135) conjugate vaccine (MCV4P) Unknown Completed [facility] TDAP Unknown Completed [facility] Varicella (varivax)(chicken pox) Unknown Completed [facility] DTaP, Unspecified Formulation Unknown Completed [facility] Hep B, Adol or Pedi Dosage Unknown Completed [facility] Haemophilus influenzae type b vaccine, conjugate unspecified formulation Unknown Completed [facility] MMR Unknown Completed [facility] Poliovirus, Live, Oral, Trivalent Unknown Completed [facility] DTaP, Unspecified Formulation Unknown Completed [facility] DPT/HIB Unknown Completed [facility] Hepatitis A Adult Unknown Completed [facility] HEPATITIS A Unknown Completed [facility] Hep B, Adol or Pedi Dosage Unknown Completed [facility] Haemophilus influenzae type b vaccine, conjugate unspecified formulation Unknown Completed [facility] Meningococcal Polysaccharide (groups A, C, Y and W-135) conjugate vaccine (MCV4P) Unknown Completed [facility] MMR Unknown Completed [facility] Poliovirus, Live, Oral, Trivalent Unknown Completed [facility] TDAP Unknown Completed [facility] Varicella (varivax)(chicken pox) Unknown Completed [facility] DTaP, Unspecified Formulation Unknown Completed [facility] DPT/HIB Unknown Completed [facility]atitis A Adult [facility] Hep B, Adol or Pedi Dosage Unknown Completed [facility] Haemophilus influenzae type b vaccine, conjugate unspecified formulation Unknown Completed [facility] Meningococcal Polysaccharide (groups A, C, Y and W-135) conjugate vaccine (MCV4P) Unknown Completed [facility] MMR Unknown Completed [facility] Poliovirus, Live, Oral, Trivalent Unknown Completed [facility] TDAP Unknown Completed [facility] Varicella (varivax)(chicken pox) Unknown Completed [facility] DTaP, Unspecified Formulation Unknown Completed [facility] DPT/HIB Unknown Completed [facility] Hepatitis A Adult [facility] Hep B, Adol or Pedi Dosage Unknown Completed [facility] Haemophilus influenzae type b vaccine, conjugate unspecified formulation Unknown Completed [facility] Meningococcal Polysaccharide (groups A, C, Y and W-135) conjugate vaccine (MCV4P) Unknown Completed [facility] MMR Unknown Completed [facility] Poliovirus, Live, Oral, Trivalent Unknown Completed [facility] TDAP Unknown Completed [facility] Varicella (varivax)(chicken pox) Unknown Completed [facility] DTaP, Unspecified Formulation Unknown Completed [facility] DPT/HIB Unknown Completed [facility] Hepatitis A Adult [facility] Completed [facility] Hep B, Adol or Pedi Dosage Unknown Completed [facility] Haemophilus influenzae type b vaccine, conjugate unspecified formulation Unknown Completed [facility] Meningococcal Polysaccharide (groups A, C, Y and W-135) conjugate vaccine (MCV4P) Unknown Completed [facility] MMR Unknown Completed [facility] Poliovirus, Live, Oral, Trivalent Unknown Completed [facility] TDAP Unknown Completed [facility] Varicella (varivax)(chicken pox) Unknown Completed [facility] DTaP, Unspecified Formulation Unknown Completed [facility] DPT/HIB Unknown Completed [facility] [facility]atitis A Adult [facility] Hep B, Adol or Pedi Dosage Unknown Completed [facility] Haemophilus influenzae type b vaccine, conjugate unspecified formulation Unknown Completed [facility] Meningococcal Polysaccharide (groups A, C, Y and W-135) conjugate vaccine (MCV4P) Unknown Completed [facility] MMR Unknown Completed [facility] Poliovirus, Live, Oral, Trivalent Unknown Completed [facility] TDAP Unknown Completed [facility] Varicella (varivax)(chicken pox) Unknown Completed [facility] DTaP, Unspecified Formulation Unknown Completed [facility] DPT/HIB Unknown Completed [facility] A [facility] Hep B, Adol or Pedi Dosage Unknown Completed [facility] Haemophilus influenzae type b vaccine, conjugate unspecified formulation Unknown Completed [facility] Meningococcal Polysaccharide (groups A, C, Y and W-135) conjugate vaccine (MCV4P) Unknown Completed [facility] MMR Unknown Completed [facility] Poliovirus, Live, Oral, Trivalent Unknown Completed [facility] TDAP Unknown Completed [facility] Varicella (varivax)(chicken pox) Unknown Completed [facility] DTaP, Unspecified Formulation Unknown Completed [facility] DPT/HIB Unknown Completed [facility] Hepatitis A Adult [facility] Hep B, Adol or Pedi Dosage Unknown Completed [facility] Haemophilus influenzae type b vaccine, conjugate unspecified formulation Unknown Completed [facility] Meningococcal Polysaccharide (groups A, C, Y and W-135) conjugate vaccine (MCV4P) Unknown Completed [facility] MMR Unknown Completed [facility] Poliovirus, Live, Oral, Trivalent Unknown Completed [facility] TDAP Unknown Completed [facility] Varicella (varivax)(chicken pox) Unknown Completed [facility] Vital Signs Vital Name Observation Time Observation Value Comments S ource Systolic blood pressure 2024-03-17 16:45:00 139 mm[Hg] [facility] Diastolic blood pressure 2024-03-17 16:45:00 90 mm[Hg] [facility] Heart rate 2024-03-17 16:45:00 82 /min [facility] Body height 2024-03-17 16:45:00 188 cm [facility] Body weight 2024-03-17 16:45:00 101.152 kg [facility] BMI 2024-03-17 16:45:00 28.63 kg/m2 [facility] Oxygen saturation in Arterial blood by Pulse oximetry 2024-03-17 16:45:00 97 /min [facility] Systolic blood pressure 2023-12-20 17:49:00 130 mm[Hg] [facility] Diastolic blood pressure 2023-12-20 17:49:00 87 mm[Hg] [facility] Heart rate 2023-12-20 17:49:00 74 /min [facility] Body temperature 2023-12-20 17:49:00 37.06 Annabella [facility] Respiratory rate 2023-12-20 17:49:00 17 /min [facility] Body height 2023-12-20 17:49:00 188 cm [facility] Body weight 2023-12-20 17:49:00 99.083 kg [facility] BMI 2023-12-20 17:49:00 28.05 kg/m2 [facility] Oxygen saturation in Arterial blood by Pulse oximetry 2023-12-20 17:49:00 96 /min [facility] Systolic blood pressure 2023-08-13 00:00:00 145 mm[Hg] [facility] Diastolic blood pressure 2023-08-13 00:00:00 99 mm[Hg] [facility] Heart rate 2023-08-13 00:00:00 86 /min [facility] Respiratory rate 2023-08-13 00:00:00 16 /min [facility] Oxygen saturation in Arterial blood by Pulse oximetry 2023-08-13 00:00:00 97 /min [facility] Body temperature 2023-08-12 21:56:00 36.72 Annabella [facility] Body height 2023-08-12 21:56:00 188 cm [facility] Body weight 2023-08-12 21:56:00 101.606 kg [facility] BMI 2023-08-12 21:56:00 28.76 kg/m2 [facility] Systolic blood pressure 2023-07-05 15:10:00 131 mm[Hg] [facility] Diastolic blood pressure 2023-07-05 15:10:00 77 mm[Hg] [facility] Body temperature 2023-07-05 15:10:00 36.44 Annabella [facility] Body height 2023-07-05 15:10:00 188 cm [facility] Body weight 2023-07-05 15:10:00 101.606 kg [facility] BMI 2023-07-05 15:10:00 28.76 kg/m2 [facility] Body height 2023-06-06 20:17:00 188 cm [facility] Body weight 2023-06-06 20:17:00 99.791 kg [facility] BMI 2023-06-06 20:17:00 28.25 kg/m2 [facility] Systolic blood pressure 2023-05-25 19:35:00 145 mm[Hg] [facility] Diastolic blood pressure 2023-05-25 19:35:00 103 mm[Hg] [facility] Heart rate 2023-05-25 19:35:00 84 /min [facility] Body temperature 2023-05-25 19:35:00 36.72 Annabella [facility] Respiratory rate 2023-05-25 19:35:00 18 /min [facility] Body height 2023-05-25 19:35:00 188 cm [facility] Body weight 2023-05-25 19:35:00 99.791 kg [facility] BMI 2023-05-25 19:35:00 28.25 kg/m2 [facility] Oxygen saturation in Arterial blood by Pulse oximetry 2023-05-25 19:35:00 100 /min [facility] Systolic blood pressure 2023-05-16 15:17:00 136 mm[Hg] [facility] Diastolic blood pressure 2023-05-16 15:17:00 84 mm[Hg] [facility] Heart rate 2023-05-16 15:17:00 68 /min [facility] Body height 2023-05-16 15:17:00 188 cm [facility] Body weight 2023-05-16 15:17:00 99.791 kg [facility] BMI 2023-05-16 15:17:00 28.25 kg/m2 [facility] Systolic blood pressure 2023-04-30 15:51:00 130 mm[Hg] [facility] Diastolic blood pressure 2023-04-30 15:51:00 88 mm[Hg] [facility] Heart rate 2023-04-30 15:49:00 68 /min [facility] Respiratory rate 2023-04-30 15:49:00 18 /min [facility] Body height 2023-04-30 15:49:00 188 cm [facility] Body weight 2023-04-30 15:49:00 99.791 kg [facility] BMI 2023-04-30 15:49:00 28.25 kg/m2 [facility] Oxygen saturation in Arterial blood by Pulse oximetry 2023-04-30 15:49:00 98 /min [facility] Systolic blood pressure 2023-04-23 20:31:00 134 mm[Hg] [facility] Diastolic blood pressure 2023-04-23 20:31:00 87 mm[Hg] [facility] Heart rate 2023-04-23 20:31:00 78 /min [facility] Respiratory rate 2023-04-23 20:31:00 18 /min [facility] Body height 2023-04-23 20:31:00 182.9 cm [facility] Body weight 2023-04-23 20:31:00 100.925 kg [facility] BMI 2023-04-23 20:31:00 30.18 kg/m2 [facility] Oxygen saturation in Arterial blood by Pulse oximetry 2023-04-23 20:31:00 96 /min [facility] Systolic blood pressure 2023-01-03 19:17:00 136 mm[Hg] [facility] Diastolic blood pressure 2023-01-03 19:17:00 84 mm[Hg] [facility] Heart rate 2023-01-03 19:17:00 83 /min [facility] Body temperature 2023-01-03 19:13:00 36.61 Annabella [facility] Body height 2023-01-03 19:13:00 188 cm [facility] Body weight 2023-01-03 19:13:00 99.202 kg [facility] BMI 2023-01-03 19:13:00 28.08 kg/m2 [facility] Oxygen saturation in Arterial blood by Pulse oximetry 2023-01-03 19:13:00 98 /min [facility] Systolic blood pressure 2022-12-12 20:32:00 143 mm[Hg] [facility] Diastolic blood pressure 2022-12-12 20:32:00 92 mm[Hg] [facility] Heart rate 2022-12-12 20:19:00 92 /min [facility] Respiratory rate 2022-12-12 20:19:00 22 /min [facility] Body height 2022-12-12 20:19:00 188 cm [facility] Body weight 2022-12-12 20:19:00 97.977 kg [facility] BMI 2022-12-12 20:19:00 27.73 kg/m2 [facility] Oxygen saturation in Arterial blood by Pulse oximetry 2022-12-12 20:19:00 99 /min [facility] Systolic blood pressure 2022-12-12 01:19:00 151 mm[Hg] [facility] Diastolic blood pressure 2022-12-12 01:19:00 97 mm[Hg] [facility] Heart rate 2022-12-12 01:19:00 86 /min [facility] Respiratory rate 2022-12-12 01:19:00 18 /min [facility] Oxygen saturation in Arterial blood by Pulse oximetry 2022-12-12 01:19:00 99 /min [facility] Body temperature 2022-12-11 23:51:47 36.67 Annabella [facility] Body weight 2022-12-11 22:02:00 97.977 kg [facility] BMI 2022-12-11 22:02:00 27.73 kg/m2 [facility] Systolic blood pressure 2022-12-08 23:30:00 145 mm[Hg] [facility] Diastolic blood pressure 2022-12-08 23:30:00 95 mm[Hg] [facility] Heart rate 2022-12-08 23:30:00 61 /min [facility] Respiratory rate 2022-12-08 23:30:00 16 /min [facility] Oxygen saturation in Arterial blood by Pulse oximetry 2022-12-08 23:30:00 98 /min [facility] Body temperature 2022-12-08 20:26:00 36.78 Annabella [facility] Body height 2022-12-08 20:26:00 188 cm [facility] Body weight 2022-12-08 20:26:00 97.977 kg [facility] BMI 2022-12-08 20:26:00 27.73 kg/m2 [facility] Systolic blood pressure 2022-12-05 18:21:00 138 mm[Hg] [facility] Diastolic blood pressure 2022-12-05 18:21:00 100 mm[Hg] [facility] Heart rate 2022-12-05 18:21:00 77 /min [facility] Oxygen saturation in Arterial blood by Pulse oximetry 2022-12-05 18:21:00 98 /min [facility] Body temperature 2022-12-05 18:19:00 36.61 Annabella [facility] Respiratory rate 2022-12-05 18:19:00 18 /min [facility] Body height 2022-12-05 18:19:00 188 cm [facility] Body weight 2022-12-05 18:19:00 97.07 kg [facility] BMI 2022-12-05 18:19:00 27.48 kg/m2 [facility] Systolic blood pressure 2022-12-05 14:58:00 131 mm[Hg] [facility] Diastolic blood pressure 2022-12-05 14:58:00 93 mm[Hg] [facility] Heart rate 2022-12-05 14:50:00 86 /min [facility] Body temperature 2022-12-05 14:50:00 36.5 Annabella [facility] Respiratory rate 2022-12-05 14:50:00 18 /min [facility] Body height 2022-12-05 14:50:00 188 cm [facility] Body weight 2022-12-05 14:50:00 98.294 kg [facility] BMI 2022-12-05 14:50:00 27.82 kg/m2 [facility] Oxygen saturation in Arterial blood by Pulse oximetry 2022-12-05 14:50:00 99 /min [facility] Systolic blood pressure 2022-11-14 01:41:47 150 mm[Hg] [facility] Diastolic blood pressure 2022-11-14 01:41:47 106 mm[Hg] [facility] Heart rate 2022-11-14 01:41:47 64 /min [facility] Body temperature 2022-11-14 01:41:47 37.28 Annabella [facility] Respiratory rate 2022-11-14 01:41:47 18 /min [facility] Oxygen saturation in Arterial blood by Pulse oximetry 2022-11-14 01:41:47 98 /min [facility] Body height 2022-11-13 21:48:00 188 cm [facility] Body weight 2022-11-13 21:48:00 97.523 kg [facility] BMI 2022-11-13 21:48:00 27.60 kg/m2 [facility] Systolic blood pressure 2022-11-06 15:55:00 120 mm[Hg] [facility] Diastolic blood pressure 2022-11-06 15:55:00 76 mm[Hg] [facility] Heart rate 2022-11-06 15:55:00 67 /min [facility] Body temperature 2022-11-06 15:55:00 36.5 Annabella [facility] Body height 2022-11-06 15:55:00 188 cm [facility] Body weight 2022-11-06 15:55:00 97.523 kg [facility] BMI 2022-11-06 15:55:00 27.60 kg/m2 [facility] Oxygen saturation in Arterial blood by Pulse oximetry 2022-11-06 15:55:00 100 /min [facility] Systolic blood pressure 2022-08-07 19:14:00 110 mm[Hg] [facility] Diastolic blood pressure 2022-08-07 19:14:00 71 mm[Hg] [facility] Heart rate 2022-08-07 19:14:00 77 /min [facility] Body temperature 2022-08-07 19:14:00 36.94 Annabella [facility] Body height 2022-08-07 19:14:00 188 cm [facility] Body weight 2022-08-07 19:14:00 97.523 kg [facility] BMI 2022-08-07 19:14:00 27.60 kg/m2 [facility] Oxygen saturation in Arterial blood by Pulse oximetry 2022-08-07 19:14:00 100 /min [facility] Systolic blood pressure 2021-01-07 18:03:00 159 mm[Hg] hysterically crying and moving [facility] Diastolic blood pressure 2021-01-07 18:03:00 128 mm[Hg] hysterically crying and moving [facility] Heart rate 2021-01-07 18:03:00 109 /min [facility] Body temperature 2021-01-07 18:03:00 37.72 Annabella [facility] Respiratory rate 2021-01-07 18:03:00 18 /min [facility] Body weight 2021-01-07 18:03:00 113.399 kg [facility] BMI 2021-01-07 18:03:00 32.10 kg/m2 [facility] Oxygen saturation in Arterial blood by Pulse oximetry 2021-01-07 18:03:00 100 /min [facility] Systolic blood pressure 2021-01-07 18:03:00 159 mm[Hg] hysterically crying and moving [facility] Diastolic blood pressure 2021-01-07 18:03:00 128 mm[Hg] hysterically crying and moving [facility] Heart rate 2021-01-07 18:03:00 109 /min [facility] Body temperature 2021-01-07 18:03:00 37.72 Annabella [facility] Respiratory rate 2021-01-07 18:03:00 18 /min [facility] Body weight 2021-01-07 18:03:00 113.399 kg [facility] BMI 2021-01-07 18:03:00 32.10 kg/m2 [facility] Oxygen saturation in Arterial blood by Pulse oximetry 2021-01-07 18:03:00 100 /min [facility] Respiratory rate 2020-12-28 19:00:00 16 /min [facility] Oxygen saturation in Arterial blood by Pulse oximetry 2020-12-28 19:00:00 100 /min [facility] Systolic blood pressure 2020-12-28 19:00:00 129 mm[Hg] [facility] Diastolic blood pressure 2020-12-28 19:00:00 83 mm[Hg] [facility] Heart rate 2020-12-28 19:00:00 71 /min [facility] Body temperature 2020-12-28 17:10:00 36.28 Annabella [facility] Body height 2020-12-28 17:10:00 188 cm [facility] Body weight 2020-12-28 17:10:00 113.399 kg [facility] BMI 2020-12-28 17:10:00 32.10 kg/m2 [facility] Respiratory rate 2020-12-28 19:00:00 16 /min [facility] Oxygen saturation in Arterial blood by Pulse oximetry 2020-12-28 19:00:00 100 /min [facility] Systolic blood pressure 2020-12-28 19:00:00 129 mm[Hg] [facility] Diastolic blood pressure 2020-12-28 19:00:00 83 mm[Hg] [facility] Heart rate 2020-12-28 19:00:00 71 /min [facility] Body temperature 2020-12-28 17:10:00 36.28 Annabella [facility] Body height 2020-12-28 17:10:00 188 cm [facility] Body weight 2020-12-28 17:10:00 113.399 kg [facility] BMI 2020-12-28 17:10:00 32.10 kg/m2 [facility] Systolic blood pressure 2020-12-10 20:25:00 123 mm[Hg] [facility] Diastolic blood pressure 2020-12-10 20:25:00 81 mm[Hg] [facility] Heart rate 2020-12-10 20:25:00 66 /min [facility] Respiratory rate 2020-12-10 20:25:00 14 /min [facility] Oxygen saturation in Arterial blood by Pulse oximetry 2020-12-10 20:25:00 99 /min [facility] Body temperature 2020-12-10 16:12:00 37.22 Annabella [facility] Body height 2020-12-10 15:41:00 188 cm [facility] Body weight 2020-12-10 15:41:00 99.474 kg [facility] BMI 2020-12-10 15:41:00 28.16 kg/m2 [facility] Systolic blood pressure 2020-12-10 20:25:00 123 mm[Hg] [facility] Diastolic blood pressure 2020-12-10 20:25:00 81 mm[Hg] [facility] Heart rate 2020-12-10 20:25:00 66 /min [facility] Respiratory rate 2020-12-10 20:25:00 14 /min [facility] Oxygen saturation in Arterial blood by Pulse oximetry 2020-12-10 20:25:00 99 /min [facility] Body temperature 2020-12-10 16:12:00 37.22 Annabella [facility] Body height 2020-12-10 15:41:00 188 cm [facility] Body weight 2020-12-10 15:41:00 99.474 kg [facility] BMI 2020-12-10 15:41:00 28.16 kg/m2 [facility] Systolic blood pressure 2020-11-21 13:01:00 159 mm[Hg] [facility] Diastolic blood pressure 2020-11-21 13:01:00 100 mm[Hg] [facility] Heart rate 2020-11-21 13:01:00 72 /min [facility] Body temperature 2020-11-21 13:01:00 36.61 Annabella [facility] Respiratory rate 2020-11-21 13:01:00 18 /min [facility] Body weight 2020-11-21 13:01:00 97.523 kg [facility] BMI 2020-11-21 13:01:00 27.60 kg/m2 [facility] Oxygen saturation in Arterial blood by Pulse oximetry 2020-11-21 13:01:00 100 /min [facility] Systolic blood pressure 2020-11-21 13:01:00 159 mm[Hg] [facility] Diastolic blood pressure 2020-11-21 13:01:00 100 mm[Hg] [facility] Heart rate 2020-11-21 13:01:00 72 /min [facility] Body temperature 2020-11-21 13:01:00 36.61 Annabella [facility] Respiratory rate 2020-11-21 13:01:00 18 /min [facility] Body weight 2020-11-21 13:01:00 97.523 kg [facility] BMI 2020-11-21 13:01:00 27.60 kg/m2 [facility] Oxygen saturation in Arterial blood by Pulse oximetry 2020-11-21 13:01:00 100 /min [facility] Procedures Procedure Date / Time Performed Performing Clinician Source NAOMI,POST-VOID RES,US,NON-IMAGING 2024-03-17 16:52:00 Kaden Andrew [facility] POCT URINALYSIS AUTO 2024-03-17 00:00:00 Liliana Andrew [facility] POCT MOLECULAR FLU 2023-12-20 17:56:00 Unknown, Attend ing [facility] POCT SARS-COV-2 ANTIGEN (BINAX NOW) 2023-12-20 17:55:00 Kathy Lux [facility] POCT MOLECULAR STREP 2023-12-20 17:53:00 Unknown, Atte adoreing [facility] ASSIGNMENT OF BENEFITS 2023-08-22 15:32:30 Docshakeel r Unassigned, [place] [facility] XR CHEST 2 VW 2023-08-12 22:55:39 Zohra Prater [facility] XR NECK SOFT TISSUE 2023-08-12 22:55:39 Adelia Prater [facility] ASSIGNMENT OF BENEFITS 2023-08-12 22:21:13 Docto r Unassigned, [place] [facility] CONSENT/REFUSAL FOR DIAGNOSIS AND TREATMENT 2023-08-12 21:44:30 Doctor Unassigned, [place] [facility] XR CERVICAL SPINE 2 VW 2023-07-05 15:20:41 Jessy son, Eddie Hernández [facility] MR SHOULDER LEFT WO CONTRAST 2023-06-04 17:59:00 Dharmesh Higgins [facility] CONSENT/REFUSAL FOR DIAGNOSIS AND TREATMENT 2023-05-25 19:24:17 Doctor Unassigned, [place] [facility] REFERRAL- REQUEST/RESPONSE 2023-05-16 06:01:00 Doctor Unassigned, [place] [facility] XR SHOULDER 2+ VW LEFT 2023-04-30 16:27:10 Kayla Begum [facility] VACCINATIONS - CONSENTS, ELIGIBILITY, HISTORY 2022-12-20 05:01:00 Doctor Unassigned, [place] [facility] COMP. METABOLIC PANEL ([id number]) 2022-12-11 23:36:00 Ivy Thakkar [facility] CBC WITH DIFF 2022-12-11 23:36:00 Ivy Thakkar [facility] URINALYSIS 2022-12-11 23:36:00 [facility] (IMMUNOASSAY) - COMPREHENSIVE DRUG SCREEN W/O REFLEX 2022-12-11 23:36:00 Ivy Thakkar [facility] US SCROTUM AND CONTENTS 2022-12-11 23:27:01 Ivy Thakkar [facility] CONSENT/REFUSAL FOR DIAGNOSIS AND TREATMENT 2022-12-11 21:59:16 Doctor Unassigned, [place] [facility] ASSIGNMENT OF BENEFITS 2022-12-08 21:05:34 Docto r Unassigned, [place] [facility] LIPASE 2022-12-08 20:59:00 Amarilis Banuelos [facility] MAGNESIUM 2022-12-08 20:59:00 Amarilis Banuelos [facility] TROPONIN I 2022-12-08 20:59:00 Amarilis Banuelos [facility] THYROID STIMULATING HORMONE 2022-12-08 20:59:00 Amarilis Banuelos [facility] COMP. METABOLIC PANEL ([id number]) 2022-12-08 20:59:00 Amarilis Banuelos [facility] CBC WITH DIFF 2022-12-08 20:59:00 Amarilis Banuelos [facility] D-DIMER 2022-12-08 20:59:00 Amarilis Banuelos [facility] URINALYSIS 2022-12-08 20:59:00 Amarilis Banuelos [facility] URINE DRUG (IMMUNOASSAY) - COMPREHENSIVE DRUG SCREEN W/O REFLEX 2022-12-08 20:59:00 Amarilis Banuelos [facility] CONSENT/REFUSAL FOR DIAGNOSIS AND TREATMENT 2022-12-08 20:14:46 Doctor Unassigned, [place] [facility] CT ABDOMEN PELVIS WO CONTRAST 2022-12-05 20:49:00 Kaden Andrew [facility] ASSIGNMENT OF BENEFITS 2022-12-05 20:38:36 Docto r Unassigned, [place] [facility] EXTERNAL PROVIDER RECORDS 2022-11-27 05:01:00 Doctor Unassigned, [place] [facility] US TESTICULAR TORSION 2022-11-13 23:53:44 Gaurav Esparza [facility] ASSIGNMENT OF BENEFITS 2022-11-13 23:53:42 Docto r Unassigned, [place] [facility] BASIC METABOLIC PANEL (NA, K, CL, CO2, GLUCOSE, BUN, CREATININE, CA) 2022-11-13 23:02:00 Gaurav Esparza [facility] CBC WITH DIFF 2022-11-13 23:02:00 Gaurav Esparza [facility] URINALYSIS 2022-11-13 23:02:00 Gaurav Esparza [facility] NOTICE OF PRIVACY PRACTICES 2022-11-13 21:34:09 Doctor Unassigned, [place] [facility] CONSENT/REFUSAL FOR DIAGNOSIS AND TREATMENT 2022-11-13 21:33:31 Doctor Unassigned, [place] [facility] URINE CULTURE 2022-11-06 16:40:00 Alena Min [facility] POCT URINALYSIS 2022-11-06 16:30:00 Alena Min [facility] AUTHORIZATION TO RELEASE PHI TO [facility] 2022-11-06 05:01:00 Doctor Unassigned, [place] [facility] CONSENT/REFUSAL FOR DIAGNOSIS AND TREATMENT 2021-01-07 17:59:07 Doctor Unassigned, [place] [facility] CT ABDOMEN PELVIS W CONTRAST 2020-12-28 18:45:34 Alvarez Archer [facility] LIPASE 2020-12-28 17:39:00 Alvarez Archer [facility] COMP. METABOLIC PANEL ([id number]) 2020-12-28 17:39:00 Alvarez Archer [facility] CBC WITH DIFF 2020-12-28 17:39:00 Alvarez Archer [facility] URINALYSIS 2020-12-28 17:39:00 Alvarez Archer [facility] CONSENT/REFUSAL FOR DIAGNOSIS AND TREATMENT 2020-12-28 16:58:57 Doctor Unassigned, [place] [facility] PROTHROMBIN TIME / INR 2020-12-10 15:10:00 Rashawn Berman [facility] ACTIVATED PARTIAL THRMPLAS JENNIFER 2020-12-10 15:10:00 Barrington Berman [facility] URINE DRUG (IMMUNOASSAY) - COMPREHENSIVE DRUG SCREEN 2020-12-10 13:45:00 Barrington Berman [facility] URINALYSIS 2020-12-10 13:45:00 Barrington Berman [facility] COVID-19 (ID NOW RAPID TESTING) 2020-12-10 12:46:00 Barrington Berman [facility] SALICYLATE 2020-12-10 12:18:00 Barrington Berman [facility] LACTIC ACID WHOLE BLOOD 2020-12-10 12:15:00 Do gladys Berman [facility] LIPASE 2020-12-10 12:13:00 Barrington Berman [facility] MAGNESIUM 2020-12-10 12:13:00 [facility] HEPATIC FUNCTION PANEL ([id number]) (ALB,T.PRO,BILI T,BU/BC,ALT,AST,ALK PHOS) 2020-12-10 12:13:00 Barrington Berman [facility] BASIC METABOLIC PANEL (NA, K, CL, CO2, GLUCOSE, BUN, CREATININE, CA) 2020-12-10 12:13:00 Barrington Berman [facility] ETHANOL 2020-12-10 12:13:00 [facility] CBC WITH DIFF 2020-12-10 12:13:00 Barrington Berman [facility] HB ECG ROUTINE & RHYTHM STRIP 2020-12-10 12:01:59 Cullen [facility] CONSENT/REFUSAL FOR DIAGNOSIS AND TREATMENT 2020-12-10 11:46:13 Doctor Unassigned, [place] [facility] NOTICE OF PRIVACY PRACTICES 2020-11-21 12:58:09 Doctor Unassigned, [place] [facility] CONSENT/REFUSAL FOR DIAGNOSIS AND TREATMENT 2020-11-21 12:57:43 Doctor Unassigned, [place] [facility] Encounters Start Date/Time End Date/Time Encounter Type Admission Type Attending Clinicians Care Facility Care Department Encounter ID Source 2024-07-15 08:00:00 2024-07-15 08:00:00 Outpatient ALENA PENNINGTON [facility] [id number] [facility] 2024-05-05 16:00:00 2024-05-05 16:00:00 Outpatient MAGALI SANDOVAL LUCAS [facility] [id number] [facility] 2024-04-08 00:00:00 2024-04-08 13:53:11 Letter (Out) Diseases-Wi ayesha, Infectious Diseases-Wi ayesha, Infectious [facility] 1.2.840.114 350.1.13.10 4.2.7.2.686 [id number] [facility] 2024-03-27 14:30:00 2024-03-27 14:30:00 Outpatient SHAUNNA SHORE [facility] [id number] [facility] 2024-03-17 11:30:00 2024-03-17 13:01:00 [facility] [id number] 2024-03-17 11:30:00 2024-03-17 13:01:00 [facility] 1.2.840.114 350.1.13.10 4.2.7.2.686 [id number] [facility] 2024-03-09 00:00:00 2024-03-09 13:27:08 Letter (Out) [facility] 1.2.840.114 350.1.13.10 4.2.7.2.686 [id number] [facility] 2024-03-06 17:29:55 2024-03-06 17:29:55 Outpatient [facility] [id number] Marty Larsen 2024-03-04 00:00:00 2024-03-05 18:04:57 Telephone Shaunna Donato [facility] 1.2.840.114 350.1.13.10 4.2.7.2.686 [id number] [facility] 2024-03-02 00:00:00 2024-03-03 09:49:39 Kayla Aguilar [facility] 1.2.840.114 350.1.13.10 4.2.7.2.686 [id number] [facility] 2024-02-06 11:00:00 2024-02-06 11:00:00 Outpatient R KAYLA GRIMES [facility] [id number] [facility] 2024-01-23 13:00:00 2024-01-23 13:00:00 Outpatient R KAYLA GRIMES [facility] [id number] [facility] 2024-01-22 17:25:37 2024-01-22 17:25:37 Outpatient [facility] [id number] Marty Larsen 2024-01-21 14:20:00 2024-01-21 14:20:00 Outpatient R KAYLA GRIMES [facility] [id number] [facility] 2023-12-25 00:00:00 2023-12-25 12:40:04 Refill Kathy Lux [facility] 1.2.840.114 350.1.13.10 4.2.7.2.686 [id number] [facility] 2023-12-24 00:00:00 2023-12-25 09:44:00 Telephone [facility] Gr[facility] 1.2.840.114 350.1.13.10 4.2.7.2.686 [id number] [facility] 2023-12-20 11:40:00 2023-12-20 13:33:48 Outpatient R KATHY LUX [facility] [id number] [facility] 2023-12-20 11:40:00 2023-12-20 12:00:00 Urgent Care Kathy Lux Unknown, Attending [facility] 1.2.840.114 350.1.13.10 4.2.7.2.686 [id number] [facility] 2023-12-12 13:40:00 2023-12-12 13:40:00 Outpatient R KAYLA GRIMES [facility] [id number] [facility] 2023-12-05 00:00:00 2023-12-05 13:39:41 Telephone Kayla Grimes [facility] 1.840.114 350.1.13.10 4.2.7.2.686 [id number] [facility] 2023-11-01 15:15:00 2023-11-01 15:15:00 Outpatient Tonja DAVISNIVIAY [facility] [id number] [facility] 2023-10-30 11:00:00 2023-10-30 11:00:00 Outpatient KAYLA CLANCY [facility] [id number] [facility] 2023-10-30 00:00:00 2023-10-30 00:00:00 Telephone Nicole Wooten 1.0.114 350.1.13.10 4.2.7.2.686 [id number] [facility] 2023-10-23 00:00:00 2023-10-23 00:00:00 Pre Visit Outreach Alexandrea Barber HITESH GIMENEZ 1.2840.114 350.1.13.10 4.2.7.2.686 [id number] [facility] 2023-10-22 16:00:00 2023-10-22 16:00:00 Outpatient Tonja HANNAHRADHAMESNIVIAY [facility] [id number] [facility] 2023-10-09 00:00:00 2023-10-09 00:00:00 Kayla Aguilar [facility] 1.840.114 350.1.13.10 4.2.7.2.686 [id number] [facility] 2023-09-16 00:00:00 2023-09-16 00:00:00 Telephone Nicole Wooten 1.2840.114 350.1.13.10 4.2.7.2.686 [id number] [facility] 2023-09-10 11:00:00 2023-09-10 11:00:00 Outpatient R [facility] [id number] [facility] 2023-09-10 00:00:00 2023-09-10 00:00:00 Case Management Álvaro Sebastian Zeinab [facility] TEDDY MARIEE PROFESSIO [facility] 1.2840.114 350.1.13.10 4.2.7.2.686 [id number] [facility] 2023-09-05 00:00:00 2023-09-05 00:00:00 Telephone Nicole Wooten [place] 1..114 350.1.13.10 4.2.7.2.686 [id number] [facility] 2023-09-03 15:15:00 2023-09-03 15:15:00 Outpatient R [facility] [id number] [facility] 2023-08-28 08:45:00 2023-08-28 08:45:00 Outpatient R LORENA SAAVEDRA CRAIG [facility] [id number] [facility] 2023-08-28 00:00:00 2023-08-28 00:00:00 Telephone Nicole Wooten A HITESH [place] 1.840.114 350.1.13.10 4.2.7.2.686 [id number] [facility] 2023-08-26 00:00:00 2023-08-26 00:00:00 Telephone Nicole WootenN [place] 1.2840.114 350.1.13.10 4.2.7.2.686 [id number] [facility] 2023-08-23 00:00:00 2023-08-23 00:00:00 Telephone Nicole Wooten A MARCELON [place] 1.2840.114 350.1.13.10 4.2.7.2.686 [id number] [id number] [facility] 2023-08-22 08:45:00 2023-08-22 09:30:00 Ancillary Visit Sebastian Rea Jeremy Samuel [facility] 1.2840.114 350.1.13.10 4.2.7.2.686 [id number] [facility] 2023-08-22 00:00:00 2023-08-22 00:00:00 Orders Only Doctor Unassigned, [place] [facility] 1.2840.114 350.1.13.10 4.2.7.2.686 [id number] [facility] 2023-08-16 09:30:00 2023-08-16 10:15:00 Ancillary Visit Sebastian Rea Craig L [facility] 1.2840.114 350.1.13.10 4.2.7.2.686 [id number] [facility] 2023-08-12 15:58:00 2023-08-12 18:23:00 Emergency X [facility] [id number] [facility] 2023-08-12 15:58:00 2023-08-12 18:23:00 Emergency Zohra Prater [facility] 1.2840.114 350.1.13.10 4.2.7.2.686 [id number] [facility] 2023-08-09 08:00:00 2023-08-09 09:22:33 Ancillary Visit Val Bell Craig L [facility] BU[facility] 1.2840.114 350.1.13.10 4.2.7.2.686 [id number] [facility] 2023-08-09 00:00:00 2023-08-09 00:00:00 Telephone Nicole WootenJosue [place]IM[place] 1.2.840.114 350.1.13.10 4.2.7.2.686 [id number] [facility] 2023-08-06 11:19:47 2023-08-06 11:19:47 Outpatient [facility] [id number] Marty Larsen 2023-08-06 11:00:00 2023-08-06 11:00:00 Outpatient R KAYLA GRIMES [facility] [id number] [facility] 2023-08-02 08:45:00 2023-08-02 08:45:00 Outpatient R [facility] [id number] [facility] 2023-07-26 00:00:00 2023-07-26 00:00:00 Telephone Nicole WootenJosue [place]ISON[place]ena GIMENEZ 1.2.840.114 350.1.13.10 4.2.7.2.686 [id number] [facility] 2023-07-25 13:40:52 2023-07-25 13:40:52 Outpatient [facility] [id number] Marty Larsen 2023-07-19 09:30:00 2023-07-19 09:30:00 Outpatient R EDDIE DAVIS [facility] [id number] [facility] 2023-07-12 10:23:23 2023-07-12 10:23:23 Outpatient [facility] [id number] Marty Larsen 2023-07-11 00:00:00 2023-07-11 00:00:00 Telephone Nicole WootenJosue [place] 1.2.840.114 350.1.13.10 4.2.7.2.686 [id number] [facility] 2023-07-05 09:14:31 2023-07-05 23:59:00 Outpatient R EDDIE DAVIS [facility] [id number] [facility] 2023-07-05 09:14:31 2023-07-05 23:59:00 Hospital Encounter Eddie Davis Edgar [facility] 1.2.840.114 350.1.13.10 4.2.7.2.686 [id number] [facility] 2023-07-05 09:30:00 2023-07-05 09:50:18 Office Visit Eddie Davis [facility] 1.2.840.114 350.1.13.10 4.2.7.2.686 [id number] [facility] 2023-06-12 00:00:00 2023-06-12 00:00:00 Telephone Eddie Davis [facility] 1.2.840.114 350.1.13.10 4.2.7.2.686 [id number] [facility] 2023-06-07 10:58:30 2023-06-07 10:58:30 Outpatient [facility] [id number] Marty Larsen 2023-06-06 14:15:00 2023-06-06 14:33:21 Outpatient R LORENA SAAVEDRA CRAIG [facility] [id number] [facility] 2023-06-06 14:15:00 2023-06-06 14:33:21 Office Visit Lorena Saavedra [facility] 1.840.114 350.1.13.10 4.2.7.2.686 [id number] [facility] 2023-06-05 00:00:00 2023-06-05 00:00:00 Patient Secure Msg Doctor Unassigned, [place] [facility] 1.840.114 350.1.13.10 4.2.7.2.686 [id number] [facility] 2023-06-04 10:58:16 2023-06-04 23:59:00 Outpatient R GISELA DHARMESH [facility] [id number] [facility] 2023-06-04 10:58:16 2023-06-04 23:59:00 Hospital Encounter Gisela Dharmesh [facility] 1.840.114 350.1.13.10 4.2.7.2.686 [id number] [facility] 2023-05-27 00:00:00 2023-05-27 00:00:00 Telephone Nicole Wooten 1..840.114 350.1.13.10 4.2.7.2.686 [id number] [facility] 2023-05-26 09:40:00 2023-05-26 09:40:00 Outpatient R [facility] [id number] [facility] 2023-05-25 13:37:00 2023-05-25 14:30:00 Emergency X GORDON [facility] ERT [id number] [facility] 2023-05-25 13:37:00 2023-05-25 14:30:00 Emergency Gordon [facility] 1.840.114 350.1.13.10 4.2.7.2.686 [id number] [facility] 2023-05-24 15:40:00 2023-05-24 15:40:00 Outpatient R KAYLA GRIMES [facility] [id number] [facility] 2023-05-22 00:00:00 2023-05-22 00:00:00 Telephone [facility]isela [facility] 1.840.114 350.1.13.10 4.2.7.2.686 [id number] [facility] 2023-05-22 00:00:00 2023-05-22 00:00:00 Patient Secure Msg Doctor Unassigned, [place] [facility] 1.84.114 350.1.13.10 4.2.7.2.686 [id number] [facility] 2023-05-21 00:00:00 2023-05-21 00:00:00 Telephone Gisela [facility] 1.84.114 350.1.13.10 4.2.7.2.686 [id number] [facility] 2023-05-17 09:07:43 2023-05-17 09:07:43 Outpatient [facility] [id number] Marty Arriola Chava 2023-05-17 00:00:00 2023-05-17 00:00:00 Telephone Nicole Wooten [facility] 1.84.114 350.1.13.10 4.2.7.2.686 [id number] [facility] 2023-05-16 09:30:00 2023-05-16 10:00:00 Office Visit Dharmesh Higgins [facility] BU[facility] 1.84.114 350.1.13.10 4.2.7.2.686 [id number] [facility] 2023-05-16 09:30:00 2023-05-16 09:46:59 Outpatient R DHARMESH HIGGINS [facility] [id number] [facility] 2023-05-16 00:00:00 2023-05-16 00:00:00 Orders Only Doctor Unassigned, [place] [facility] 1.84.114 350.1.13.10 4.2.7.2.686 [id number] [facility] 2023-05-10 11:00:00 2023-05-10 11:00:00 Outpatient DHARMESH MCDONADL [facility] [id number] [facility] 2023-05-03 11:23:35 2023-05-03 11:23:35 Outpatient [facility] [id number] Marty Larsen 2023-05-01 00:00:00 2023-05-01 00:00:00 Telephone Nicole WootenJosue [place] 1.2.840.114 350.1.13.10 4.2.7.2.686 [id number] [facility] 2023-05-01 00:00:00 2023-05-01 00:00:00 Telephone Nicole WootenJosue [place] 1.2.840.114 350.1.13.10 4.2.7.2.686 [id number] [facility] 2023-05-01 00:00:00 2023-05-01 00:00:00 [place]phone [place] 1.2.840.114 350.1.13.10 4.2.7.2.686 [id number] [facility] 2023-04-30 11:15:20 2023-04-30 23:59:00 Outpatient KAYLA CLANCY [facility] [id number] [facility] 2023-04-30 11:15:20 2023-04-30 23:59:00 Hospital Encounter Kayla Grimes [facility] 1.2840.114 350.1.13.10 4.2.7.2.686 [id number] [facility] 2023-04-30 10:20:00 2023-04-30 11:39:43 Office Visit Sydney , Kayla Geeta [facility] 1.2840.114 350.1.13.10 4.2.7.2.686 [id number] [facility] 2023-04-30 11:14:49 2023-04-30 11:14:49 Hospital Encounter Winfield MelissaKayla M [facility] 1.2840.114 350.1.13.10 4.2.7.2.686 [id number] [facility] 2023-04-30 08:58:42 2023-04-30 08:58:42 Outpatient [facility] [id number] Marty Larsen 2023-04-28 17:00:00 2023-04-28 17:00:00 Outpatient R [facility] [id number] [facility] 2023-04-25 14:30:00 2023-04-25 14:30:00 Outpatient R [facility] [id number] [facility] 2023-04-24 00:00:00 2023-04-24 00:00:00 Telephone Tylor Newman [facility] 1.2.84.114 350.1.13.10 4.2.7.2.686 [id number] [facility] 2023-04-24 00:00:00 2023-04-24 00:00:00 Telephone Nicole Wooten 1.2.840.114 350.1.13.10 4.2.7.2.686 [id number] [facility] 2023-04-23 15:40:00 2023-04-23 16:11:36 Outpatient R KAYLA GRIMES [facility] [id number] [facility] 2023-04-23 15:40:00 2023-04-23 16:11:36 Office Visit Kayla Grimes [facility] 1.2.840.114 350.1.13.10 4.2.7.2.686 [id number] [facility] 2023-04-17 00:00:00 2023-04-17 00:00:00 Telephone Nicole Wooten HIT[place] 1.2.840.114 350.1.13.10 4.2.7.2.686 [id number] [facility] 2023-04-16 13:21:44 2023-04-16 13:21:44 Outpatient [facility] [id number] Marty Larsen 2023-04-16 00:00:00 2023-04-16 00:00:00 Refill Kayla Grimes Geeta [facility] 1.2.840.114 350.1.13.10 4.2.7.2.686 [id number] [facility] 2023-04-16 00:00:00 2023-04-16 00:00:00 Refill Kayla Grimes Geeta [facility] 1.2.840.114 350.1.13.10 4.2.7.2.686 [id number] [facility] 2023-04-16 00:00:00 2023-04-16 00:00:00 Telephone WootenRajwinder harrisonshalini [place] 1.2.840.114 350.1.13.10 4.2.7.2.686 [id number] [facility] 2023-04-12 11:00:00 2023-04-12 11:00:00 Outpatient R KAYLA GRIMES [facility] [id number] [facility] 2023-04-10 13:40:00 2023-04-10 13:40:00 Outpatient R SYDNEY , KAYLA [facility] [id number] [facility] 2023-04-04 08:41:26 2023-04-04 08:41:26 Outpatient [facility] [id number] Marty Larsen 2023-03-13 08:40:00 2023-03-13 08:40:00 Outpatient R KAYLA GRIMES [facility] [id number] [facility] 2023-03-11 00:00:00 2023-03-11 00:00:00 Patient Secure Msg Kayla Grimes [facility] 1.2.840.114 350.1.13.10 4.2.7.2.686 [id number] [facility] 2023-03-11 00:00:00 2023-03-11 00:00:00 Refill Tylor Newman [facility] 1..840.114 350.1.13.10 4.2.7.2.686 [id number] [facility] 2023-03-07 08:47:58 2023-03-07 08:47:58 Outpatient [facility] [id number] Marty Larsen 2023-01-03 14:00:00 2023-01-03 14:52:06 Outpatient R EDILIA NOLASCO [facility] [id number] [facility] 2023-01-03 14:00:00 2023-01-03 14:52:06 Office Visit Tylor Newman [facility] ..840.114 350.1.13.10 4.2.7.2.686 [id number] [facility] 2023-01-02 13:00:00 2023-01-02 13:00:00 Outpatient R KADEN ANDREW [facility] [id number] [facility] 2023-01-02 10:30:00 2023-01-02 10:30:00 Outpatient R KADEN ANDREW [facility] [id number] [facility] 2022-12-31 00:00:00 2022-12-31 00:00:00 Refill Alena Min [facility] 1.840.114 350.1.13.10 4.2.7.2.686 [id number] [facility] 2022-12-30 00:00:00 2022-12-30 00:00:00 Refill Alena Min [facility] 1.84.114 350.1.13.10 4.2.7.2.686 [id number] [facility] 2022-12-28 12:45:00 2022-12-28 12:45:00 Outpatient R SULMA PEREZ [facility] [id number] [facility] 2022-12-26 11:20:00 2022-12-26 11:20:00 Outpatient R KAYLA GRIMES [facility] [id number] [facility] 2022-12-20 00:00:00 2022-12-20 00:00:00 Orders Only Doctor Unassigned, [place] [facility] 1.84.114 350.1.13.10 4.2.7.2.686 [id number] [facility] 2022-12-17 00:00:00 2022-12-17 00:00:00 Patient Secure Msg Kayla Grimes [facility] 1.84.114 350.1.13.10 4.2.7.2.686 [id number] [facility] 2022-12-17 00:00:00 2022-12-17 00:00:00 Patient Outreach Sheila Magallanes [facility] 1..840.114 350.1.13.10 4.2.7.2.686 [id number] [facility] 2022-12-13 00:00:00 2022-12-13 00:00:00 Telephone Kayla Grimes [facility] OFF[facility] 1..840.114 350.1.13.10 4.2.7.2.686 [id number] [facility] 2022-12-12 15:20:00 2022-12-12 16:04:33 Outpatient R KAYLA GRIMES [facility] [id number] [facility] 2022-12-12 15:20:00 2022-12-12 16:04:33 Office Visit Kayla Grimes [facility] 1..840.114 350.1.13.10 4.2.7.2.686 [id number] [facility] 2022-12-11 17:05:00 2022-12-11 20:26:00 Emergency X IVY THAKKAR [facility] ERT [id number] [facility] 2022-12-11 17:05:00 2022-12-11 20:26:00 Emergency Ivy Thakkar [facility] 1..840.114 350.1.13.10 4.2.7.2.686 [id number] [facility] 2022-12-11 09:30:00 2022-12-11 09:30:00 Outpatient R KADEN ANDREW [facility] [id number] [facility] 2022-12-08 15:30:00 2022-12-08 18:50:00 Emergency X AMARILIS BANUELOS [facility] ERT [id number] [facility] 2022-12-08 15:30:00 2022-12-08 18:50:00 Emergency Amarilis Banuelos [facility] 1.2.840.114 350.1.13.10 4.2.7.2.686 [id number] [facility] 2022-12-06 00:00:00 2022-12-06 00:00:00 Patient Secure Alena Long [facility] 1.2.840.114 350.1.13.10 4.2.7.2.686 [id number] [facility] 2022-12-06 00:00:00 2022-12-06 00:00:00 Telephone [facility] 1.2.840.114 350.1.13.10 4.2.7.2.686 [id number] [facility] 2022-12-05 15:30:00 2022-12-05 23:59:00 Hospital Encounter [facility] 1.2.840.114 350.1.13.10 4.2.7.2.686 [id number] [facility] 2022-12-05 13:30:00 2022-12-05 15:18:12 Office Visit [facility] 1.2.840.114 350.1.13.10 4.2.7.2.686 [id number] [facility] 2022-12-05 10:20:00 2022-12-05 10:20:00 Office Visit [facility]la Grimes [facility] 1.2.840.114 350.1.13.10 4.2.7.2.686 [id number] [facility] 2022-12-05 10:20:00 2022-12-05 10:16:52 Outpatient R KAYLA GRIMES [facility] [id number] [facility] 2022-12-05 08:45:00 2022-12-05 08:45:00 Outpatient R PRIYANKA RIVERA [facility] [id number] [facility] 2022-12-05 00:00:00 2022-12-05 00:00:00 Orders Only Doctor Unassigned, [place] [facility] 1.2.840.114 350.1.13.10 4.2.7.2.686 [id number] [facility] 2022-12-04 00:00:00 2022-12-04 00:00:00 Telephone Jena Veloz 1.2.840.114 350.1.13.10 4.2.7.2.686 [id number] [facility] 2022-11-27 15:30:00 2022-11-27 16:29:39 Outpatient R KADEN ANDREW [facility] [id number] [facility] 2022-11-27 00:00:00 2022-11-27 00:00:00 Orders Only Doctor Unassigned, [place] [facility] 1.2.840.114 350.1.13.10 4.2.7.2.686 [id number] [facility] 2022-11-21 00:00:00 2022-11-21 00:00:00 Patient Secure Msg Doctor Unassigned, [place] [facility] 1.2.840.114 350.1.13.10 4.2.7.2.686 [id number] [id number] [facility] 2022-11-20 08:00:00 2022-11-20 08:00:00 Outpatient R BERNARDO DUGGAN [facility] [id number] [facility] 2022-11-14 00:00:00 2022-11-14 00:00:00 Telephone Alena Min [facility] 1.840.114 350.1.13.10 4.2.7.2.686 [id number] [facility] 2022-11-13 16:53:00 2022-11-13 20:55:00 Emergency X GAURAV ESPARZA [facility] ERT [id number] [facility] 2022-11-13 16:53:00 2022-11-13 20:55:00 Emergency Gaurav Esparza [facility] 1.84.114 350.1.13.10 4.2.7.2.686 [id number] [facility] 2022-11-13 08:00:00 2022-11-13 08:15:00 Slab Installer Visit Lab, [place] - Kiet [facility]NY[facility] 1.840.114 350.1.13.10 4.2.7.2.686 [id number] [facility] 2022-11-13 08:00:00 2022-11-13 08:00:00 Outpatient R BEATAALENA Calderon [facility] [id number] [facility] 2022-11-13 00:00:00 2022-11-13 00:00:00 Telephone Mechelle [facility] 1.840.114 350.1.13.10 4.2.7.2.686 [id number] [facility] 2022-11-12 12:00:00 2022-11-12 12:00:00 Outpatient R [facility] [id number] [facility] 2022-11-12 00:00:00 2022-11-12 00:00:00 Telephone BeataAlena calderon [facility] 1.840.114 350.1.13.10 4.2.7.2.686 [id number] [id number] [facility] 2022-11-12 00:00:00 2022-11-12 00:00:00 [facility] 1.2840.114 350.1.13.10 4.2.7.2.686 [id number] [id number] [facility] 2022-11-12 00:00:00 2022-11-12 00:00:00 Telephone [facility] 1.2840.114 350.1.13.10 4.2.7.2.686 [id number] [id number] [facility] 2022-11-09 00:00:00 2022-11-09 00:00:00 [facility]phone [facility] 1.2840.114 350.1.13.10 4.2.7.2.686 [id number] [id number] [facility] 2022-11-07 00:00:00 2022-11-07 00:00:00 Telephone [facility] 1.2840.114 350.1.13.10 4.2.7.2.686 [id number] [facility] 2022-11-06 11:00:00 2022-11-06 12:34:42 Outpatient R ALENA MIN [facility] [id number] [facility] 2022-11-06 11:00:00 2022-11-06 12:34:42 Office [facility] 1.2840.114 350.1.13.10 4.2.7.2.686 [id number] [facility] 2022-11-06 00:00:00 2022-11-06 00:00:00 Orders Only Doctor Unassigned, [place] [facility] 1.84114 350.1.13.10 4.2.7.2.686 [id number] [facility] 2022-11-02 15:30:00 2022-11-02 15:30:00 Outpatient R BEATAALENA Calderon [facility] [id number] [facility] 2022-10-22 00:00:00 2022-10-22 00:00:00 Telephone BeataAlena calderon [facility] 1.84.114 350.1.13.10 4.2.7.2.686 [id number] 044 [id number] [facility] 2022-08-21 09:30:00 2022-08-21 09:30:00 Outpatient R BEATAALENA Calderon [facility] [id number] [facility] 2022-08-07 13:00:00 2022-08-07 13:48:52 Outpatient R ALENA MIN [facility] [id number] [facility] 2022-08-07 13:00:00 2022-08-07 13:48:52 Office Visit BeataAlena calderon [facility] 1.84.114 350.1.13.10 4.2.7.2.686 [id number] [facility] 2022-08-07 00:00:00 2022-08-07 00:00:00 Telephone Alena Min [facility] 1.84.114 350.1.13.10 4.2.7.2.686 [id number] [facility] 2021-01-07 13:07:00 2021-01-07 13:25:00 Emergency Thi Trent [facility] 1.84.114 350.1.13.10 4.2.7.2.686 [id number] 2021-01-07 13:07:00 2021-01-07 13:25:00 Emergency Twan Thi Uzma [facility] 1.2.840.114 350.1.13.10 4.2.7.2.686 [id number] [id number] [facility] 2021-01-07 12:59:00 2021-01-07 12:59:00 Emergency X [facility] ERT [id number] [facility] 2021-01-07 00:00:00 2021-01-07 00:00:00 Orders Only Doctor Unassigned, [place] [facility] 1.2.840.114 350.1.13.10 4.2.7.2.686 [id number] 2021-01-07 00:00:00 2021-01-07 00:00:00 Orders Only Doctor Unassigned, [place] [facility] 1.2.840.114 350.1.13.10 4.2.7.2.686 [id number] [facility] 2020-12-28 12:12:00 2020-12-28 14:45:00 Emergency Alvarez Archer [facility] 1.2.840.114 350.1.13.10 4.2.7.2.686 [id number] 2020-12-28 12:12:00 2020-12-28 14:45:00 Emergency Alvarez Archer [facility] 1.2.840.114 350.1.13.10 4.2.7.2.686 [id number] [facility] 2020-12-28 11:59:00 2020-12-28 11:59:00 Emergency X [facility] ERT [id number] [facility] 2020-12-10 06:50:00 2020-12-10 15:30:00 Emergency Barrington Berman Raymundo [facility] 1.2.840.114 350.1.13.10 4.2.7.2.686 [id number] 2020-12-10 06:50:00 2020-12-10 15:30:00 Emergency Barrington Berman [facility] 1.2.840.114 350.1.13.10 4.2.7.2.686 [id number] [facility] 2020-12-10 06:47:00 2020-12-10 06:47:00 Emergency X [facility] ERT [id number] [facility] 2020-12-10 00:00:00 2020-12-10 00:00:00 Orders Only Doctor Unassigned, [place] [facility] 1.2.840.114 350.1.13.10 4.2.7.2.686 [id number] 2020-12-10 00:00:00 2020-12-10 00:00:00 Orders Only Doctor Unassigned, [place] [facility] 1.2.840.114 350.1.13.10 4.2.7.2.686 [id number] [facility] 2020-11-21 08:03:00 2020-11-21 08:39:00 Emergency Daljit Velasco [facility] 1.2.840.114 350.1.13.10 4.2.7.2.686 [id number] 2020-11-21 08:03:00 2020-11-21 08:39:00 Emergency Daljit Velasco [facility]TAYES[facility] 1.2.840.114 350.1.13.10 4.2.7.2.686 [id number] [id number] [facility] 2020-11-21 08:03:00 2020-11-21 08:03:00 Emergency X DALJIT VELASCO [facility] ERT [id number] [facility] Results Test Description Test Time Test Comments Results Result Co mments Source [facility],US,RLM-[id number] 16:52:00* Test Item Value Reference Range Interpretation Comme nts PVR (URINE VOLUME) (test code = 5193) 28 ml 0-100 [facility] SARS-COV-2 ANTIGEN (BINAX NOW)2023-12-20 18:11:00* Test Item Value Reference Range Interpretation Comme nts POCT SARS-COV-2 ANTIGEN (marty t code = 75606-7) Not Detected Not Detected On board controls acceptable with C Line (test code = 3574) Yes Lab Interpretation (test cod e = 65781-7) Normal [facility] Molecular [id number] 18:07:45* Test Item Value Reference Range Interpretation Comme nts POCT Molecular FluA (test co de = 73266-5) Negative Negative POCT Molecular FluB (test co de = 30709-0) Negative Negative Lab Interpretation (test cod e = 26584-9) Normal [facility] MOLECULAR [id number] 18:00:56* Test Item Value Reference Range Interpretation Comme nts POCT Molecular Strep (test c ode = 48969-4) Negative Negative Lab Interpretation (test cod e = 56712-7) Normal [facility] N[facility]K SOFT [id number] 23:40:20ORDERING PHYSICIAN: ZOHRA PRATER HISTORY: 28 years old, Male, foreign body sensation in throat after taking3 pills , feeling of something stuck in throat TECHNIQUE: XR NECK SOFT TISSUE COMPARISON: none FINDINGS: Prevertebral soft tissues are normal. No radiopaque foreign bodyidentified. Bones appear intact.[facility] CHEST 2 [id number] 23:03:32EXAM: XR CHEST 2 VW COMPARISON: 12/08/2022 HISTORY: foreign body senation in throat , s/p swallowing p ills without anyliquidsUnSurgery [facility] AmericaXR CERVICAL SPINE 2 VW 2023-07-05 16:43:54EXAM: XR CERVICAL SPINE 2 VW HISTORY: neck pain COMPARISON: Cervical spine radiograph dated 03/24/2015[facility]OL[facility] PANEL (49743)2022-12-12 00:37:54* Test Item Value Reference Range Interpretation Comme nts NA (test code = 2076612231) 142 mmol/L 135-145 K (test code = 2650237657) 4.1 mmol/L 3.5-5.0 CL (test code = 0970362649) 105 mmol/L 98-108 CO2 TOTAL (test code = 2878595576) 26 mmol/L 23-31 AGAP (test code = 1755208971) 11 2-16 BUN (test code = 0925372635) 15 mg/dL 7-23 GLUCOSE (test code = 0489276004) 97 mg/dL 70-110 CREATININE (test code = 4473572436) 1.03 mg/dL 0.60-1.25 TOTAL BILI (test code = 0176940344) 0.7 mg/dL 0.1-1.1 CALCIUM (test code = 8784415593) 10.0 mg/dL 8.6-10.6 T PROTEIN (test code = 5149158144) 8.3 g/dL 6.3-8.2 H ALBUMIN (test code = 0941633246) 5.1 g/dL 3.5-5.0 H ALK PHOS (test code = 2684205082) 66 U/L 34-122 ALTv (test code = 1742-6) 44 U/L 5-50 AST(SGOT) (test code = 6133358447) 30 U/L 13-40 eGFR (test code = 9784149766) 85.4 mL/min/1.73m2 DESIREE (test code = DESIREE) [...] imaging tests). Lab Interpretation (test code = 00072-6) Abnormal [facility] WITH [id number] 00:12:33* Test Item Value Reference Range Interpretation Comme nts WBC (test code = 6690-2) 7.70 See_Comment [Automated [employer]] The system which generated this result transmitted reference range: 4.20 - 10.70 10*3/?L. The reference range was not used to interpret this result as normal/abnormal. RBC (test code = 789-8) 5.28 See_Comment [Automated [employer]] The system which generated this result transmitted [...] g/dL 31.2-35.0 H RDW-SD (test code = 96734-6) 38.6 fL 38.5-51.6 RDW-CV (test code = 788-0) 12.0 % 12.1-15.4 L PLT (test code = 777-3) 328 See_Comment [Automated messa ge] The system which generated this result transmitted reference range: 150 - 328 10*3/?L. The reference range was not used to interpret this result as normal/abnormal. MPV (test code = 11889-1) 9.4 fL 9.8-13.0 L NRBC/100 WBC (test code = 6666131554) 0.0 See_Comment [Automated me ssage] The system which generated this result transmitted reference range: 0.0 - 10.0 /100 WBCs. The reference range was not used to interpret this result as normal/abnormal. NRBC x10^3 (test code = 7387067989) See_Comment [Automated messa ge] The system which generated this result transmitted reference range: 10*3/?L. The reference range was not used to interpret this result as normal/abnormal. GRAN MAT (NEUT) % (test code = 770-8) 69.1 % IMM GRAN % (test code = 9869223701) 0.30 % LYMPH % (test code = 736-9) 23.8 % MONO % (test code = 5905-5) 5.8 % EOS % (test code = 713-8) 0.5 % BASO % (test code = 706-2) 0.5 % GRAN MAT x10^3(ANC) (test code = 4866437748) 5.32 10*3/uL 1.99-6.95 IMM GRAN x10^3 (test code = 2468041569) 0.00-0.06 LYMPH x10^3 (test code = 731-0) 1.83 10*3/uL 1.09-3.23 MONO x10^3 (test code = 742-7) 0.45 10*3/uL 0.36-1.02 EOS x10^3 (test code = 711-2) 0.04 10*3/uL 0.06-0.53 L BASO x10^3 (test code = 704-7) 0.04 10*3/uL 0.01-0.09 Lab Interpretation (test code = 02405-2) [facility]normal [facility] CenterTHYROID STIMULATING [id number] 22:27:19 * Test Item Value Reference Range Interpretation Comme nts TSH (test code = 4686668052) 1.74 See_Comment [Automated messa ge] The system which generated this result transmitted reference range: 0.45 - 4.70 mIU/L. The reference range was not used to interpret this result as normal/abnormal. Lab Interpretation (test code = 70799-3) Normal [facility] CenterTROPONIN [id number] 22:08:38* Test Item Value Reference Range Interpretation Comme nts TROPONIN I (test code = 3791453469) 0.004 ng/mL <=0.034 DESIREE (test code = [...] of biotin. Lab Interpretation (test code = 02715-2) Normal [facility]20[facility] 22:05:21* Test Item Value Reference Range Interpretation Comme nts LIPASE (test code = 2592742011) 213 U/L 0-220 Lab Interpretation (test cod e = 40902-6) Normal [facility] CenterMAGNESIUM2023-06-03 22:05:16* Test Item Value Reference Range Interpretation Comme nts MAGNESIUM (test code = 2451683617) 1.7 mg/dL 1.7-2.4 Lab Interpretation (test cod e = 90051-2) Normal [facility]OLIC PANEL (57260)2022-12-08 22:05:06* Test Item Value Reference Range Interpretation Comme nts NA (test code = 2990133127) 140 mmol/L 135-145 K (test code = 9198180702) 3.9 mmol/L 3.5-5.0 CL (test code = 2299224355) 105 mmol/L 98-108 CO2 TOTAL (test code = 2057266986) 26 mmol/L 23-31 AGAP (test code = 5728984440) 9 2-16 BUN (test code = 0059864467) 14 mg/dL 7-23 GLUCOSE (test code = 7636725271) 96 mg/dL 70-110 CREATININE (test code = 6751474178) 0.90 mg/dL 0.60-1.25 TOTAL BILI (test code = 5599731420) 0.8 mg/dL 0.1-1.1 CALCIUM (test code = 1809294521) 9.8 mg/dL 8.6-10.6 T PROTEIN (test code = 1976948830) 7.9 g/dL 6.3-8.2 ALBUMIN (test code = 3214294560) 4.9 g/dL 3.5-5.0 ALK PHOS (test code = 3903856125) 61 U/L 34-122 ALTv (test code = 1742-6) 39 U/L 5-50 AST(SGOT) (test code = 0253754006) 30 U/L 13-40 eGFR (test code = 8534027544) 99.8 mL/min/1.73m2 DESIREE (test code = DESIREE) [...] urine or abnormalities in imaging tests). [facility] CenterD-[id number] 21:41:43* Test Item Value Reference Range Interpretation Comments D-DIMER (test code = 3302027657) See_Comment [Automated message] The system which generated [...] a diagnosis. Lab Interpretation (test code = 03225-5) Normal [facility] CenterCBC WITH [id number] 21:26:36* Test Item Value Reference Range Interpretation Comme nts WBC (test code = 6690-2) 6.69 See_Comment [Automated [employer]] The system which generated this result transmitted reference range: 4.20 - 10.70 10*3/?L. The reference range was not used to interpret this result as normal/abnormal. RBC (test code = 789-8) 5.24 See_Comment [Automated [employer]] The system which generated this result transmitted [...] g/dL 31.2-35.0 H RDW-SD (test code = 25545-8) 38.9 fL 38.5-51.6 RDW-CV (test code = 788-0) 12.1 % 12.1-15.4 PLT (test code = 777-3) 325 See_Comment [Automated messa ge] The system which generated this result transmitted reference range: 150 - 328 10*3/?L. The reference range was not used to interpret this result as normal/abnormal. MPV (test code = 62974-6) 9.4 fL 9.8-13.0 L NRBC/100 WBC (test code = 1425882804) 0.0 See_Comment [Automated [employer] ssage] The system which generated this result transmitted reference range: 0.0 - 10.0 /100 WBCs. The reference range was not used to interpret this result as normal/abnormal. NRBC x10^3 (test code = 3129664157) See_Comment [Automated messa ge] The system which generated this result transmitted reference range: 10*3/?L. The reference range was not used to interpret this result as normal/abnormal. GRAN MAT (NEUT) % (test code = 770-8) 57.8 % IMM GRAN % (test code = 0072927726) 0.30 % LYMPH % (test code = 736-9) 33.8 % MONO % (test code = 5905-5) 6.9 % EOS % (test code = 713-8) 0.6 % BASO % (test code = 706-2) 0.6 % GRAN MAT x10^3(ANC) (test code = 9258226963) 3.87 10*3/uL 1.99-6.95 IMM GRAN x10^3 (test code = 1041379094) 0.00-0.06 LYMPH x10^3 (test code = 731-0) 2.26 10*3/uL 1.09-3.23 MONO x10^3 (test code = 742-7) 0.46 10*3/uL 0.36-1.02 EOS x10^3 (test code = 711-2) 0.04 10*3/uL 0.06-0.53 L BASO x10^3 (test code = 704-7) 0.04 10*3/uL 0.01-0.09 Lab Interpretation (test code = 69187-6) Abnormal [facility] METABOLIC PANEL (NA, K, CL, CO2, GLUCOSE, BUN, CREATININE, CA)2022-11-13 23:40:36* Test Item Value Reference Range Interpretation Comme nts NA (test code = 6206024860) 140 mmol/L 135-145 K (test code = 4104754150) 4.1 mmol/L 3.5-5.0 CL (test code = 1888416485) 103 mmol/L 98-108 CO2 TOTAL (test code = 2992690702) 26 mmol/L 23-31 AGAP (test code = 6236966233) 11 2-16 BUN (test code = 4688677966) 14 mg/dL 7-23 GLUCOSE (test code = 8719840993) 106 mg/dL 70-110 CREATININE (test code = 3875461657) 0.89 mg/dL 0.60-1.25 CALCIUM (test code = 1281750201) 9.7 mg/dL 8.6-10.6 eGFR (test code = 8956702210) 101.1 mL/min/1.73m2 DESIREE (test code = DESIREE) [...] or urine or abnormalities in imaging tests). [facility] WITH [id number] 23:33:18* Test Item Value Reference Range Interpretation Comme nts WBC (test code = 6690-2) 9.32 See_Comment [Automated [employer]] The system which generated this result transmitted reference range: 4.20 - 10.70 10*3/?L. The reference range was not used to interpret this result as normal/abnormal. RBC (test code = 789-8) 5.42 See_Comment [Automated [employer]] The system which generated this result transmitted [...] 35.0 g/dL 31.2-35.0 RDW-SD (test code = 88459-1) 37.6 fL 38.5-51.6 L RDW-CV (test code = 788-0) 12.2 % 12.1-15.4 PLT (test code = 777-3) 314 See_Comment [Automated [employer]] The system which generated this result transmitted reference range: 150 - 328 10*3/?L. The reference range was not used to interpret this result as normal/abnormal. MPV (test code = 87667-8) 9.6 fL 9.8-13.0 L NRBC/100 WBC (test code = 3233424285) 0.0 See_Comment [Automated me ssage] The system which generated this result transmitted reference range: 0.0 - 10.0 /100 WBCs. The reference range was not used to interpret this result as normal/abnormal. NRBC x10^3 (test code = 1546450771) See_Comment [Automated messa ge] The system which generated this result transmitted reference range: 10*3/?L. The reference range was not used to interpret this result as normal/abnormal. GRAN MAT (NEUT) % (test code = 770-8) 74.5 % IMM GRAN % (test code = 5988657138) 0.10 % LYMPH % (test code = 736-9) 18.1 % MONO % (test code = 5905-5) 6.5 % EOS % (test code = 713-8) 0.3 % BASO % (test code = 706-2) 0.5 % GRAN MAT x10^3(ANC) (test code = 2101520119) 6.93 10*3/uL 1.99-6.95 IMM GRAN x10^3 (test code = 5630378284) 0.00-0.06 LYMPH x10^3 (test code = 731-0) 1.69 10*3/uL 1.09-3.23 MONO x10^3 (test code = 742-7) 0.61 10*3/uL 0.36-1.02 EOS x10^3 (test code = 711-2) 0.03 10*3/uL 0.06-0.53 L BASO x10^3 (test code = 704-7) 0.05 10*3/uL 0.01-0.09 Lab Interpretation (test code = 75858-6) Abnormal [facility] URINALYSIS W SPECIFIC [id number] 16:30:00* Test Item Value Reference Range Interpretation [...] 3267) CLEAR Lab Interpretation (test code = 19408-4) Abnormal [facility] URINALYSIS W SPECIFIC [id number] 16:30:00* Test Item Value Reference Range Interpretation [...] 3267) CLEAR Lab Interpretation (test code = 95563-8) Abnormal [facility] URINALYSIS W SPECIFIC [id number] 16:30:00* Test Item Value Reference Range Interpretation [...] 3267) CLEAR Lab Interpretation (test code = 27894-7) [facility] [id number] 18:54:58CT Abdomen and Pelvis with intravenous contrast. [...] is noted, otherwise no acuteintra-abdominal or pelvic abnormalities.[facility] [id number] 18:02:33* Test Item Value Reference Range Interpretation Comme nts APPEARANCE (test code = 8868451861) Clear Clear COLOR (test code = 4878173022) Yellow Yellow PH (test code = 1750710093) 4.8-8.0 SP GRAVITY (test code = 9166211542) 1.003-1.030 GLU U QUAL (test code = 1805480209) Normal Normal BLOOD (test code = 2739423389) Negative Negative KETONES (test code = 9201282173) Negative Negative PROTEIN (test code = 2887-8) Negative Negative UROBILIN (test code = 5613314616) Normal Normal BILIRUBIN (test code = 3068472318) Negative Negative NITRITE (test code = 8078110119) Negative Negative LEUK MITALI (test code = 1644814987) Negative Negative RBC/HPF (test code = 3729726219) See_Comment [Automated [employer]Conceptsa ge] The system which generated this result transmitted reference range: 0 - 3 HPF. The reference range was not used to interpret this result as normal/abnormal. WBC/HPF (test code = 3609407346) See_Comment [Automated [employer]Conceptsa ge] The system which generated this result transmitted reference range: 0 - 5 HPF. The reference range was not used to interpret this result as normal/abnormal. BACTERIA (test code = 6092841689) Negative Negative MUCOUS (test code = 1641991047) Slight Negative LPF A Lab Interpretation (test code = 08653-4) Abnormal [facility]. METABOLIC PANEL (27292)2020-12-28 17:57:13* Test Item Value Reference Range Interpretation Comme nts NA (test code = 3188036799) 142 mmol/L 135-145 K (test code = 7601815855) 4.5 mmol/L 3.5-5.0 CL (test code = 7360902171) 104 mmol/L 98-108 CO2 TOTAL (test code = 1561143668) 29 mmol/L 23-31 AGAP (test code = 3662668839) 2-16 BUN (test code = 4906031899) 13 mg/dL 7-23 GLUCOSE (test code = 4848317606) 101 mg/dL 70-110 CREATININE (test code = 5930379938) 0.92 mg/dL 0.60-1.25 TOTAL BILI (test code = 8056161629) 0.5 mg/dL 0.1-1.1 CALCIUM (test code = 3740340932) 9.9 mg/dL 8.6-10.6 T PROTEIN (test code = 0755785440) 8.0 g/dL 6.3-8.2 ALBUMIN (test code = 4725430364) 4.8 g/dL 3.5-5.0 ALK PHOS (test code = 3132368161) 61 U/L 34-122 ALTv (test code = 1742-6) 47 U/L 5-50 AST(SGOT) (test code = 5415677474) 37 U/L 13-40 eGFR (test code = 1867468013) mL/min/1.73m2 DESIREE (test code = DESIREE) Association [...] urine or abnormalities in imaging tests). [facility] 17:56:33* Test Item Value Reference Range Interpretation Comme nts LIPASE (test code = 4822110837) 328 U/L 0-220 H Lab Interpretation (test cod e = 04613-1) Abnormal [facility] WITH [id number] 17:51:55* Test Item Value Reference Range Interpretation [...] 34.3 g/dL 31.2-35.0 RDW-SD (test code = 77198-5) 38.7 fL 38.5-51.6 RDW-CV (test code = 788-0) 12.2 % 12.1-15.4 PLT (test code = 777-3) See_Comment [Automated messa ge] The system which generated this result transmitted reference range: 150 - 328 10*3/?L. The reference range was not used to interpret this result as normal/abnormal. MPV (test code = 32048-6) 9.3 fL 9.8-13.0 L NRBC/100 WBC (test code = 4881346016) See_Comment [Automated [employer] ssage] The system which generated this result transmitted reference range: 0.0 - 10.0 /100 WBCs. The reference range was not used to interpret this result as normal/abnormal. NRBC x10^3 (test code = 8271013941) <0.01 See_Comment [Automated messa ge] The system which generated this result transmitted reference range: 10*3/?L. The reference range was not used to interpret this result as normal/abnormal. GRAN MAT (NEUT) % (test code = 770-8) 53.5 % IMM GRAN % (test code = 7491170968) 0.20 % LYMPH % (test code = 736-9) 34.2 % MONO % (test code = 5905-5) 9.6 % EOS % (test code = 713-8) 2.1 % BASO % (test code = 706-2) 0.4 % GRAN MAT x10^3(ANC) (test code = 1042648118) 2.56 10*3/uL 1.99-6.95 IMM GRAN x10^3 (test code = 8429772028) <0.03 0.00-0.06 LYMPH x10^3 (test code = 731-0) 1.64 10*3/uL 1.09-3.23 MONO x10^3 (test code = 742-7) 0.46 10*3/uL 0.36-1.02 EOS x10^3 (test code = 711-2) 0.10 10*3/uL 0.06-0.53 BASO x10^3 (test code = 704-7) <0.03 0.01-0.09 Lab Interpretation (test code = 88317-8) [facility] Test Item Value Reference Range Interpretation Comme nts APTT Patient (test code = 3173-2) See_Comment [Automated message] The system which generated this result transmitted reference range: 23 - 38 Seconds. The reference range was not used to interpret this result as normal/abnormal. DESIREE (test code = DESIREE) The [facility] patient population mean normal value for aPTT is 30 seconds. Lab Interpretation (test code = 06739-5) Normal [facility] (PT[facility] / [id number] 15:40:16 * Test Item Value Reference Range [...] the indications. Lab Interpretation (test code = 34534-4) Normal [facility] CenterUrinalysis2021-06-05 14:32:20* Test Item Value Reference Range Interpretation Comme nts APPEARANCE (test code = 2489529638) Hazy Clear A COLOR (test code = 6249056175) Shellie Yellow A PH (test code = 7150629374) 4.8-8.0 SP GRAVITY (test code = 6097362106) 1.003-1.030 H GLU U QUAL (test code = 8772116527) Normal Normal BLOOD (test code = 9420284024) Negative Negative KETONES (test code = 9942301795) Negative Negative PROTEIN (test code = 2887-8) Negative Negative UROBILIN (test code = 7907670466) Normal Normal BILIRUBIN (test code = 0300216779) Negative Negative NITRITE (test code = 0649174897) Negative Negative LEUK MITALI (test code = 5797640489) Negative Negative RBC/HPF (test code = 8697405840) See_Comment [Automated ColonaryConceptsa ge] The system which generated this result transmitted reference range: 0 - 3 HPF. The reference range was not used to interpret this result as normal/abnormal. WBC/HPF (test code = 5720830582) See_Comment [Automated ColonaryConceptsa ge] The system which generated this result transmitted reference range: 0 - 5 HPF. The reference range was not used to interpret this result as normal/abnormal. BACTERIA (test code = 9229567974) Few Negative A MUCOUS (test code = 6756821579) Marked Negative LPF A SQ EPITH (test code = 1860721947) <1 HPF Lab Interpretation (test code = 79579-4) [facility]normal [facility] (IMMUNOASSAY) - COMPREHENSIVE DRUG [id number] 14:30:54* Test Item Value Reference Range Interpretation Comme nts AMPHET (test code = 5246834595) Negative Negative REBECA U (test code = 4528721832) Negative Negative BENZO U (test code = 0646106613) Negative Negative Cocaine Metabolite (test code = 2722806182) Negative Negative METHADONE (test code = 4052022799) Negative Negative OPIATES (test code = 9285579594) Negative Negative PCP (test code = 3901023877) Negative Negative THC (test code = 5530406743) Presumptive Positive Negative A DESIREE (test code [...] legal testing). Lab Interpretation (test code = 18058-4) [facility]normal [facility] CenterSALICYLATE2021-06-05 13:41:52* Test Item Value Reference Range Interpretation Comme nts SALICYLATE (test code = 9411974076) <10 mg/L DESIREE (test code = DESIREE) Therapeutic Range: ? Analgesic and Antipyretic Use ? 20-100 mg/L ? ? Anti-Inflammatory Use ? 100-250 mg/L Toxic Range: ? Greater than 300 mg/L [facility] CenterACETAMINOPHEN2021-06-05 13:41:52* Test Item Value Reference Range Interpretation Comme nts ACETAMINOP (test code = 9262662853) <10.0 10.0-30.0 L DESIREE (test code = DESIREE) Toxic: Greater jurgen n 200 ug/mL @ 4 hour post ingestion or greater than 50 ug/mL @ 12 hour post ingestion Lab Interpretation (test code = 01717-8) [facility]normal [facility] CenterCOVID-19 (ID NOW RAPID TESTING)2020-12-10 13:13:08* Test Item Value Reference Range Interpretation Comme nts SARS-CoV-2 Rapid ID NOW (test code = 49838-6) Not Detected Not Detected DESIREE (test code = DESIREE) ID NOW COVID-19 As say is an isothermal nucleic acid amplification test intended for the qualitative detection of nucleic acid from SARS-CoV-2 viral RNA in nasopharyngeal (FILTRATION PLANT OPERATOR) specimens. It is used under Emergency Use [...] clinically indicated. Lab Interpretation (test code = 10877-7) Normal [facility] CenterETHANOL2021-06-05 13:08:25* Test Item Value Reference Range Interpretation Comme nts ALCOHOL (test code = 2639697883) <10 mg/dL DESIREE (test code = DESIREE) <10 [id number] Toxic>100 Depression of CIVIL DRAFTSMAN>400 Fatalities Reported [facility] CenterLactic Acid Whole [id number] 12:41:49* Test Item Value Reference Range Interpretation Comme nts LACTIC ACID (test code = 3523304402) 1.89 mmol/L 0.50-2.20 Lab Interpretation (test cod e = 15669-2) Normal [facility] CenterMAGNESIUM2021-06-05 12:38:27* Test Item Value Reference Range Interpretation Comme nts MAGNESIUM (test code = 4974076846) 1.7 mg/dL 1.7-2.4 Lab Interpretation (test cod e = 95885-9) Normal [facility] CenterHepatic Function Panel (ALB, T.PRO, BILI T, BU/BC, ALT, AST, ALK PHOS)2020-12-10 12:38:07* Test Item Value Reference Range Interpretation Comme nts TOTAL BILI (test code = 1384804315) 0.8 mg/dL 0.1-1.1 BILI UNCON (test code = 4268311235) 0.6 mg/dL 0.1-1.1 BILI CONJ (test code = 0640011449) 0.0 mg/dL 0.0-0.3 T PROTEIN (test code = 6136599476) 8.4 g/dL 6.3-8.2 H ALBUMIN (test code = 6895551657) 5.2 g/dL 3.5-5.0 H ALK PHOS (test code = 6209535132) 69 U/L 34-122 ALTv (test code = 1742-6) 39 U/L 5-50 AST(SGOT) (test code = 5483738227) 36 U/L 13-40 Lab Interpretation (test cod e = 87546-1) Abnormal [facility] Metabolic Panel (NA, K, CL, CO2, GLUCOSE, BUN, CREATININE, CA)2020-12-10 12:37:47* Test Item Value Reference Range Interpretation Comme nts NA (test code = 0750699476) 141 mmol/L 135-145 K (test code = 0949677894) 3.7 mmol/L 3.5-5.0 CL (test code = 7982267647) 105 mmol/L 98-108 CO2 TOTAL (test code = 8579473951) 27 mmol/L 23-31 AGAP (test code = 8918767825) 2-16 BUN (test code = 9126753779) 19 mg/dL 7-23 GLUCOSE (test code = 0838285597) 128 mg/dL 70-110 H CREATININE (test code = 8612174178) 1.16 mg/dL 0.60-1.25 CALCIUM (test code = 5979210713) 9.6 mg/dL 8.6-10.6 eGFR (test code = 0842804864) mL/min/1.73m2 DESIREE (test code = DESIREE) Association [...] imaging tests). Lab Interpretation (test code = 28318-9) Abnormal [facility] CenterLipase [id number] 12:37:47* Test Item Value Reference Range Interpretation Comme nts LIPASE (test code = 1813512734) 241 U/L 0-220 H Lab Interpretation (test cod e = 19342-7) Abnormal [facility] CenterCBC with Zywasmesizbt4664-81-62 12:25:07* Test Item Value Reference Range Interpretation [...] 34.0 g/dL 31.2-35.0 RDW-SD (test code = 59512-0) 39.2 fL 38.5-51.6 RDW-CV (test code = 788-0) 12.3 % 12.1-15.4 PLT (test code = 777-3) See_Comment [Automated message] The system which generated this result transmitted reference range: 150 - 328 10*3/?L. The reference range was not used to interpret this result as normal/abnormal. MPV (test code = 95921-6) 9.3 fL 9.8-13.0 L NRBC/100 WBC (test code = 6534379835) See_Comment [Automated message] The system which generated this result transmitted reference range: 0.0 - 10.0 /100 WBCs. The reference range was not used to interpret this result as normal/abnormal. NRBC x10^3 (test code = 5994650689) <0.01 See_Comment [Automated message] The system which generated this result transmitted reference range: 10*3/?L. The reference range was not used to interpret this result as normal/abnormal. GRAN MAT (NEUT) % (test code = 770-8) 87.5 % IMM GRAN % (test code = 6242891271) 0.30 % LYMPH % (test code = 736-9) 5.2 % MONO % (test code = 5905-5) 6.4 % EOS % (test code = 713-8) 0.3 % BASO % (test code = 706-2) 0.3 % GRAN MAT x10^3(ANC) (test code = 8650138126) 12.14 10*3/uL 1.99-6.95 H IMM GRAN x10^3 (test code = 5281315803) 0.04 10*3/uL 0.00-0.06 LYMPH x10^3 (test code = 731-0) 0.72 10*3/uL 1.09-3.23 L MONO x10^3 (test code = 742-7) 0.89 10*3/uL 0.36-1.02 EOS x10^3 (test code = 711-2) 0.04 10*3/uL 0.06-0.53 L BASO x10^3 (test code = 704-7) 0.04 10*3/uL 0.01-0.09 Lab Interpretation (test code = 13127-6) [facility]
--- NOTE | 2024-07-15 10:18 | RAD REPORT ---
EXAMINATION: ONE VIEW CHEST XR CLINICAL INDICATION: Male, 29 years old.,CHEST PAIN TECHNIQUE: Frontal chest projection is submitted. Examination is limited by patient positioning and t echnique. COMPARISON: 03/19/2021 FINDINGS: The lungs are well inflated and clear. No pneumothorax or sizable effusion. The heart is normal in s ize. Mediastinal contours are unremarkable. IMPRESSION: No acute intrathoracic abnormalities.
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
[2024-07-15 11:15] VITALS: BP 135/101; TEMP 97.4; O2SAT 100
--- NOTE | 2024-07-20 11:01 | EKG ---
Test Date: 2024-07-15 Test Time: 08:54:07 Polarity Tester: STAR MEASUREMENT RESULTS: Intervals: Rate: 70 OH: 142 QRSD: 100 QT: 370 QTc: 399 [place]: P: 63 OH: 142 QRS: 64 T: 49 INTERPRETIVE STATEMENTS: Normal sinus rhythm Normal ECG Compared to ECG 03/19/2021 16:47:58 No significant changes Electronically Signed On 07-20-24 10:54:10 ONLINE CONTENT DEVELOPER by Ced Mahoney
== END 2024-07-15 11:11 | disposition home or self-care (01) ==
LOC: ER 08:32
DX: R07.89 Other chest pain (principal); F41.9 Anxiety disorder, unspecified
CPT/HCPCS: 71045; 93005; 99283

== ENCOUNTER 2024-08-12 11:12 | Emergency (ER) | payer OTHER ==
--- OUTSIDE RECORDS SUMMARY | 2024-08-12 11:23 | XMS REPORT | Continuity of Care Document ---
Author Name Unknown Address [address] [facility] [address] [place] [address] [facility] thconnect Address [address] 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 Role Phone KAYLA GRIMES Primary Care Physician Unavailable Alena Johnson Attending Clinician [phone] ALENA MIN Attending Clinician Unavailable VIJAY BERMAN Attending Clinician Unavailable VIJAY BERMAN Attending Clinician Unavailable Vijay Berman MD Attending Clinician [phone] MAGALI FERRER Attending Clinician Unavailable MAGALI FERRER Attending Clinician Unavailable Diseases-[facility], Infectious Attending Clinician [phone] SHAUNNA DONATO Attending Clinician Unavailable KADEN ANDREW Attending Clinician Unavailable Kaden Andrew MD Attending Clinician [phone] Shaunna Ashley Attending Clinician [phone] Kayla Grimes MD Attending Clinician KAYLA GRIMES Attending Clinician Adalgisa vailable Kathy Ji Attending Clinician + [phone] Kayla Grimes MD Attending Clinician KATHY LUX Attending Clinician Unavailab le Jatin, Attending Attending Clinician Unavailab EDDIE Strickland Attending Clinician Unav Nicole Hernandez Attending Clinician Unavaila juan Barber MA, Alexandrea A Attending Clinician Unavailab le Brown MANAGER OF PMO, Sebastian F Attending Clinician Unavaila LORENA Carrera Attending Clinician UnavailLORENA Starkey Attending Clinician Unavailjeferson Davis MD, Eddie Hernández Attending Clinician + Doctor Unassigned, [place]ann Attending Clinician U Lorena Quiñonez MD Attending Clinician [phone] ZOHRA PRATER Attending Clinician Unavailable Moi ITEM PROCESSOR, Zohra Attending Clinician [phone] Arabella TAVAREZ, Val Attending Clinician UnavailDHARMESH Ribeiro Attending Clinician Unavailable Bebo PACDharmesh S Attending Clinician [phone] GORDON NORWOOD Attending Clinician Unavailable Gordon Norwood MD Attending Clinician + [phone] BABATUNDE HERNÁNDEZ Attending Clinician Unavailable Tylor Newman MD Attending Clinician [phone] EDILIA NOLASCO Attending Clinician Unavailable Edilia Nolasco MD Attending Clinician [phone] Alena Johnson Attending Clinician [phone] SULMA VIZCARRA Attending Clinician Unaellie Magallanes LMSWSheila Attending Clinician + [phone] BREANNE BENAVIDES Attending Clinician Unavailable BREANNE BENAVIDES Attending Clinician Unavailable IVY THAKKAR Attending Clinician Unavaila Ivy Terrazas Attending Clinician [phone] AMARILIS BANUELOS Attending Clinician Unavailable Amarilis Banuelos NP Attending Clinician [phone] Kaden Andrew MD Attending Clinician [phone] PRIYANKA RIVERA Attending Clinician Unavailable Jena Veloz Attending Clinician U BERNARDO Mcconnell Attending Clinician Unavaila GAURAV Davison Attending Clinician Unavailable Gaurav Mendenhall Attending Clinician [phone] Lab, Ang - Db Attending Clinician Unavailable Thi Trent DO Attending Clinician [phone] [place] Attending Clinician [phone] Raymundo Dexter MD Attending Clinician [phone] Daljit Velasco DO Attending Clinician [phone] DALJIT VELASCO Attending Clinician Unavailable VIJAY BERMAN Admitting Clinician Unavailable ZOHRA PRATER Admitting Clinician Unavailable DHARMESH HIGGINS Admitting Clinician Unavailable IVY THAKKAR Admitting Clinician UnavailAMARILIS Morelos Admitting Clinician Unavailable GAURAV ESPARZA Admitting Clinician Unavailable Raymundo Dexter MD Admitting Clinician [phone] Payers Payer Name Policy Type Policy Number Effective Date Expirati on Date Source [facility] DIST [id number] 2022 00:00:00 2023 00:00:00 MEDICAID PENDING PENDING 2020 00:00:00 Problems Condition Name Condition Details Condition Category Status Onset Date Resolution Date Last Treatment Date Treating Clinician Comments Source Stomachach e Stomachach e Disease Active 03-08 00:00: 00 [facility] Dysuria Dysuria Disease Active 11-06 00:00: 00 [facility] Cervical radiculopa thy Cervical radiculopa thy Disease Active 11-06 00:00: 00 [facility] Encounter to establish care Encounter to establish care Disease Active 08-07 00:00: 00 [facility] Epigastric pain Epigastric pain Disease Active 08-07 00:00: 00 [facility] Nausea Nausea Disease Active 08-07 00:00: 00 [facility] Anxiety and depression Anxiety and depression Disease Active 08-07 00:00: 00 [facility] Encounter to establish care Encounter to establish care Disease Active 08-07 00:00: 00 [facility] Vomiting Vomiting Disease Active 12-10 00:00: 00 [facility] No known active problems No known active problems Disease [facility] Allergies, Adverse Reactions, Alerts Allergy Name Allergy Type Status Severity Reaction(s) Onset Date Inactive Date Treating Clinician Comments Source NO KNOWN ALLERGIE S Drug Class Active [facility] Social History Social Habit Start Date Stop Date Quantity Comments Source Gender identity [facility] Sexual orientation U [facility] History of tobacco use Cigarette Smoker [facility] Tobacco use and exposure 2024-03-17 00:00:00 2024-03-17 00:00:00 Smokeless tobacco non-user [facility] Alcoholic beverage intake 2024-03-17 00:00:00 2024-03-17 00:00:00 Ex-drinker (finding) [facility] Cigarettes smoked current (pack per day) - Reported 2024-03-17 00:00:00 2024-03-17 00:00:00 [facility] Cigarette pack-years 2024-03-17 00:00:00 2024-03-17 00:00:00 [facility] Alcohol intake 2023-08-13 00:00:00 2023-08-13 00:00:00 Ex-drinker (finding) [facility] History of Social function 2023-05-16 00:00:00 2023-05-16 00:00:00 [facility] Exposure to SARS-CoV-2 (event) 2022-11-25 00:00:00 2022-12-05 09:48:00 Not sure [facility] Tobacco Comment 2022-08-07 00:00:00 2022-08-07 00:00:00 quit 3 months ago [facility] Sex assigned at 1995 00:00:00 1995 00:00:00 [facility] Smoking Status Start Date Stop Date Source Ex-smoker 2024-03-17 00:00:00 2024-03-17 00:00:00 U [facility] Current every day smoker 2017-06-22 00:00:00 [facility] Medications Ordered Medication Name Filled Medication Name Start Date Stop Date Current Medication? Ordering Clinician Indication Dosage Frequency Signature (SIG) Comments Components Source ondansetron 4 mg disintegrat ing tablet 07-17 00:00: 00 Yes [id number] 4mg Take 1 tablet by mouth every 4 (four) hours as needed for Nausea and Vomiting (N/V). [facility] naproxen 500 mg tablet 07-17 00:00: 00 07-28 05:59 :00 Yes [id number] 500mg Take 1 tablet by mouth in the morning and 1 tablet in the evening. Take with meals. Do all this for 10 days. [facility] tamsulosin (FLOMAX) 0.4 mg 24 hr capsule 03-17 00:00: 00 Yes [id number] .4mg Take 1 capsule by mouth in the morning. [facility] gabapentin 300 mg capsule 03-17 00:00: 00 04-08 04:59 :00 No [id number] 300mg Take 1 capsule by mouth in the morning and 1 capsule at noon and 1 capsule in the evening. Do all this for 21 days. [facility] pantoprazol e 40 mg EC tablet 03-03 00:00: 00 Yes [id number] 40mg Take 1 tablet by mouth in the morning. MUST BE SEEN FOR FURTHER REFILLS [facility] permethrin 5 % cream 12-19 00:00: 00 Yes APPLY CREAM FROM HEAD TO FEET, LEAVE ON FOR 8-14 HOURS THEN WASH WITH SOAP AND WATER. REPEAT OF LIVING MITES PRESENT 14 DAYS AFTER INITIAL TREATMENT [facility] valACYclovi r 500 mg tablet 12-19 00:00: 00 12-25 04:59 :00 No [id number] 1000mg Take 2 tablets by mouth in the morning for 5 days. [facility] ibuprofen 800 mg tablet 12-16 00:00: 00 Yes TAKE 1 TABLET BY MOUTH EVERY 8 HOURS WITH FOOD AND DRINK PLENTY OF WATER NEEDED FOR PAIN [facility] valACYclovi r (VALTREX) 500 mg tablet 12-04 00:00: 00 Yes [id number] 500mg Take 1 tablet by mouth in the morning and 1 tablet in the evening. [facility] chlorhexidi ne 0.12 % mouthwash 12-04 00:00: 00 Yes RINSE MOUTTH WITH 1 CAP FULL OF LIQUID AFTER BRUSHING TWICE DAILY. SWISH FOR APPROXIMAT BRET 60 SECONDS AND SPIT. [facility] pantoprazol e 40 mg EC tablet 10-08 00:00: 00 03-02 00:00 :00 No [id number] 40mg Take 1 tablet by mouth in the morning. [facility] famotidine (PEPCID AC) tablet 20 mg 08-12 23:00: 00 08-12 22:59 :00 No 20mg 20 mg, Oral, ONCE, 1 dose, On Sat08/12/23 at 1700, JOJO [facility] ondansetron (ZOFRAN-ODT ) disintegrat ing tablet 4 mg 08-12 22:56: 00 08-12 22:59 :00 No 4mg 4 mg, Oral, ONCE, 1 dose, On Sat08/12/23 at 1700, [facility]ox:diph enhydrAMINE :lidocaine 2 % viscous 1:1:1 (FIRST-MOUT HWASH BLM) oral suspension 15 mL 08-12 22:30: 00 08-12 22:54 :00 No 15mL 15 mL, Oral, ONCE, 1 dose, On Sat08/12/23 at 1630, Routine [facility] aluminum & magnesium hydroxide-s imethicone 400-400-40 mg/5 mL suspension 08-12 00:00: 00 Yes [id number] 10mL Take 10 mL by mouth every 8 (eight) hours as needed for Indigestio n. [facility] ondansetron 4 mg disintegrat ing tablet 08-12 00:00: 00 07-17 00:00 :00 No [id number] 4mg Take 1 tablet by mouth every 8 (eight) hours as needed for Nausea and Vomiting (N/V). [facility] methylPREDN ISolone 4 mg tablets 2022-07 00:00: 00 Yes [id number] Take by mouth SEE-INSTRU CTIONS. follow package directions [facility] cyclobenzap rine 5 mg tablet 2022-07 00:00: 00 07-20 05:59 :00 No [id number] 5mg Take 1 tablet by mouth in the morning and 1 tablet at noon and 1 tablet in the evening. Do all this for 14 days. [facility] SERTraline 100 mg tablet 2022-07 2- 00:00: 00 Yes 100mg Take 1 tablet by mouth at bedtime. [facility] ARIPiprazol e 5 mg tablet 2022-07 2- 00:00: 00 Yes 5mg Take 1 tablet by mouth at bedtime. [facility] busPIRone 30 mg tablet 2022-07 0-24 10:55: 16 Yes 30mg Take 1 tablet by mouth in the morning and 1 tablet at noon and 1 tablet in the evening. [facility] valACYclovi r 500 mg tablet 2022-07 017 16:09: 58 04-23 00:00 :00 No 500mg Take 1 tablet by mouth in the morning. [facility] valACYclovi r 500 mg tablet 2022-07 0 00:00: 00 04-29 04:59 :00 No [id number] 500mg Take 1 tablet by mouth in the morning and 1 tablet in the evening. Do all this for 5 days. [facility] metroNIDAZO LE 500 mg tablet 2022-07 017 00:00: 00 04-24 04:59 :00 No [id number] 2000mg Take 4 tablets by mouth once now for 1 dose. [facility] pantoprazol e 40 mg EC tablet 905 00:00: 00 10-08 00:00 :00 No [id number] 40mg Take 1 tablet by mouth in the morning. [facility] SERTraline 50 mg tablet 8- 00:00: 00 Yes 50mg Take 1 tablet by mouth at bedtime. [facility] SERTraline 50 mg tablet 8- 00:00: 00 Yes 100mg Take 2 tablets by mouth at bedtime. [facility] busPIRone 10 mg tablet 7-15 00:00: 00 Yes 10mg Take 1 tablet by mouth in the morning and 1 tablet in the evening. [facility] busPIRone 10 mg tablet 7-15 00:00: 00 24 00:00 :00 No 15mg Take 1.5 tablets by mouth in the morning and 1.5 tablets in the evening. [facility] Methylcellu lose, with Sugar, (CITRUCEL, SUCROSE,) powder 01-03 00:00: 00 Yes [id number] 3g Take 3 g by mouth in the morning and 3 g in the evening. [facility] omeprazole 40 mg capsule 01-03 00:00: 00 Yes [id number] 40mg Take 1 capsule by mouth 2 (two) times daily before breakfast and dinner. [facility] Phenyleph-P ramoxin-Gly cr-W.Pet 0.25-1 % Crea 01-03 00:00: 00 Yes [id number] Apply to area(s) 2 (two) times daily. [facility] pantoprazol e 40 mg EC tablet 12-31 00:00: 00 01-03 00:00 :00 No [id number] 40mg Take 1 tablet by mouth in the morning. [facility] SERTraline (ZOLOFT) 25 mg tablet 12-13 00:00: 00 03-12 00:00 :00 No [id number] 12.5mg Take 0.5 tablets by mouth in the morning. [facility] busPIRone 5 mg tablet 12-12 00:00: 00 03-12 00:00 :00 No [id number] 5mg Take 1 tablet by mouth in the morning and 1 tablet in the evening. [facility] SERTraline (ZOLOFT) 50 mg tablet 12-12 00:00: 00 12-13 00:00 :00 No [id number] Take 0.5 tablets by mouth daily for 8 days, THEN 1 tablet daily for 30 days. [facility] acetaminoph en (TYLENOL) tablet 1,000 mg 12-12 00:00: 00 12-11 23:38 :00 No 1000mg 1,000 mg, Oral, ONCE, 1 dose, On Sat12/11/22 at 1900, Routine [facility] NaCl 0.9% (NS) bolus infusion 1,000 mL 12-11 23:45: 00 12-12 01:19 :00 No 1000mL at 999 mL/hr, 1,000 mL, IV Infusion, ONCE, 1 dose, On Sat12/11/22 at 1845, [facility] ketorolac (TORADOL) injection 30 mg 12-11 23:45: 00 12-11 23:38 :00 No 30mg 30 mg, Slow IV Push, ONCE, 1 dose, On Sat12/11/22 at 1845, [facility] hydrOXYzine (ATARAX) tablet 50 mg 12-11 23:00: 00 12-11 23:38 :00 No 50mg 50 mg, Oral, ONCE, 1 dose, On Sat12/11/22 at 1800, [facility] hydrOXYzine 50 mg tablet 12-11 00:00: 00 Yes [id number] 50mg Take 1 tablet by mouth every 8 (eight) hours as needed for Anxiety. [facility] ibuprofen 600 mg tablet 12-11 00:00: 00 01-03 00:00 :00 No [id number] 600mg Take 1 tablet by mouth every 6 (six) hours as needed for Pain (scale 4-6). [facility] ketorolac (TORADOL) injection 30 mg 12-08 23:45: 00 12-08 23:01 :00 No 30mg 30 mg, Slow IV Push, ONCE, 1 dose, On Sat12/08/22 at 1845, Routine [facility] NaCl 0.9% (NS) IV infusion 1,000 mL 12-08 21:45: 00 Yes 1000mL at 999 mL/hr, Intravenou s, CONTINUOUS , Starting on Sat12/08/22 at 1645, Until Discontinu ed, JOJO [facility] gabapentin 300 mg capsule 12-05 00:00: 00 12-27 04:59 :00 No [id number] 300mg Take 1 capsule by mouth in the morning and 1 capsule at noon and 1 capsule in the evening. Do all this for 21 days. [facility] valACYclovi r 500 mg tablet 11-27 15:38: 27 Yes 500mg Take 1 tablet by mouth in the morning. [facility] ketorolac (TORADOL) injection 30 mg 11-14 02:30: 00 11-14 01:44 :00 No 30mg 30 mg, Slow IV Push, ONCE, 1 dose, On Sat11/13/22 at 2130, JOJO [facility] ibuprofen 800 mg tablet 11-13 00:00: 00 12-12 00:00 :00 No [id number] 800mg Take 1 tablet by mouth in the morning and 1 tablet at noon and 1 tablet in the evening. Take with meals. [facility] cyclobenzap rine 5 mg tablet 11-06 00:00: 00 Yes [id number] 5mg Take 1 tablet by mouth in the morning and 1 tablet at noon and 1 tablet in the evening. [facility] methylPREDN ISolone (MEDROL, TRAV,) 4 mg tablets 11-06 00:00: 00 11-12 04:59 :00 No [id number] Take by mouth SEE-INSTRU CTIONS for 5 days. follow package directions [facility] pantoprazol e 40 mg EC tablet 18 00:00: 00 12-31 00:00 :00 No [id number] 40mg Take 1 tablet by mouth in the morning. [facility] famotidine (PEPCID ORAL) 08-07 13:33: 27 08-07 00:00 :00 No Take by mouth. [facility] ondansetron (ZOFRAN) 4 mg tablet 08-07 00:00: 00 Yes [id number] 4mg Take 1 tablet by mouth every 8 (eight) hours as needed for Nausea and Vomiting (N/V). [facility] pantoprazol e 40 mg EC tablet 08-07 00:00: 00 10-23 00:00 :00 No [id number] 40mg Take 1 tablet by mouth in the morning. [facility] famotidine 20 mg in NS 50 ml (PEPCID) 20 mg/50 mL Piggyback 20 mg 12-28 19:45: 00 12-28 19:31 :00 No 20mg 20 mg, IV Piggyback, ONCE, 1 dose, Sat12/28/20 at 1445, 50 mL [facility] NaCl 0.9% (NS) bolus infusion 1,000 mL 12-28 19:30: 00 12-28 19:31 :00 No 1000mL at 999 mL/hr, 1,000 mL, IV Infusion, ONCE, 1 dose, Sat12/28/20 at 1430, STAT [facility] iopamidol (ISOVUE 370-500 mL) injection 120 mL 12-28 18:40: 00 12-28 18:40 :00 No [id number] 120mL 120 mL, Intravenou s, ONCE, 1 dose, Sat12/28/20 at 1400, Routine [facility] ondansetron (ZOFRAN (PF)) injection 4 mg 12-28 18:30: 00 12-28 17:42 :00 No 4mg 4 mg, Slow IV Push, ONCE, 1 dose, Sat12/28/20 at 1330, JOJO [facility] ondansetron (ZOFRAN ODT) 4 mg disintegrat ing tablet 12-28 00:00: 00 08-07 00:00 :00 No [id number] 4mg Take 1 tablet by mouth every 8 (eight) hours as needed for Nausea and Vomiting (N/V). [facility] enoxaparin (LOVENOX) injection 30 mg 12-10 22:00: 00 Yes 30mg 30 mg, Subcutaneo us, DAILY, First dose on 12/10/20 at 1700, Until Discontinu ed, Routine [facility] lactated ringers IV infusion 1,000 mL 12-10 16:00: 00 Yes 1000mL at 100 mL/hr, 1,000 mL, IV Infusion, CONTINUOUS , Starting 12/10/20 at 1100, Until Discontinu ed, Routine [facility] acetaminoph en (TYLENOL) tablet 650 mg 12-10 14:58: 36 Yes 650mg 650 mg, Oral, Q6HPRN, Starting 12/10/20 at 0958, Until Discontinu ed, Routine, Pain (scale 1-3) [facility] ondansetron (ZOFRAN (PF)) injection 4 mg 12-10 13:00: 00 12-10 12:15 :00 No 4mg 4 mg, Slow IV Push, ONCE, 1 dose, 12/10/20 at 0800, JOJO [facility] NaCl 0.9% (NS) bolus infusion 1,000 mL 12-10 12:00: 00 12-10 12:15 :00 No 1000mL at 999 mL/hr, 1,000 mL, IV Infusion, ONCE, 1 dose, 12/10/20 at 0700, JOJO [facility] chlorhexidi ne 0.12 % mouthwash 11-21 00:00: 00 12-10 00:00 :00 No [id number] 15mL Swish and spit out 15 mL 2 (two) times daily. [facility] methylPREDN ISolone (MEDROL, TRAV,) 4 mg tablets 11-21 00:00: 00 12-10 00:00 :00 No [id number] Take by mouth SEE-INSTRU CTIONS. follow package directions [facility] acetaminoph en-codeine (TYLENOL-CO DEINE #3) 300-30 mg tablet 11-21 00:00: 00 12-10 00:00 :00 No [id number] 1{tbl} Take 1 tablet by mouth every 4 (four) hours as needed for Pain (scale 7-10). Indication s: acute pain [facility] ondansetron 4 mg disintegrat ing tablet 11-21 00:00: 00 12-10 00:00 :00 No [id number] 4mg Take 1 tablet by mouth every 8 (eight) hours as needed for Nausea and Vomiting (N/V). [facility] clindamycin 150 mg capsule 11-21 00:00: 00 11-29 04:59 :00 No [id number] 300mg Take 2 capsules by mouth 4 (four) times daily for 7 days. [facility] azithromyci n (ZITHROMAX Z-TRAV) 250 mg tablet 10-15 00:00: 00 12-10 00:00 :00 No [id number] 250mg Take 1 tablet by mouth SEE-INSTRU CTIONS. Take 500 mg day 1, then 250 mg days 2 to 5. [facility] dextrometho rphan-guaif enesin 10-100 mg/5 mL solution 10 00:00: 00 12-10 00:00 :00 No [id number] 10mL Take 10 mL by mouth every 6 (six) hours as needed for Cough. [facility] ibuprofen 800 mg tablet 10 00:00: 00 12-10 00:00 :00 No [id number] 800mg Take 1 tablet by mouth every 8 (eight) hours. [facility] cyclobenzap rine 5 mg tablet 2017-07 0-31 00:00: 00 12-10 00:00 :00 No 5mg Take 1 tablet by mouth 3 (three) times daily. [facility] CATAFLAM 50 mg tablet 2014-0718 00:00: 00 12-10 00:00 :00 No 50mg Take 1 Tab by mouth 3 (three) times daily. [facility] Immunizations Ordered Immunization Name Filled Immunization Name Date Status Comments Source Hepatitis A Adult 2011-08-29 00:00:00 Completed [facility] Hepatitis A Adult 2011-08-29 00:00:00 Completed [facility] Hepatitis A Adult 2011-08-29 00:00:00 Completed [facility] Hepatitis A Adult 2011-08-29 00:00:00 Completed [facility] Hepatitis A Adult 2011-08-29 00:00:00 Completed [facility] Hepatitis A Adult 2011-08-29 00:00:00 Completed [facility] Hepatitis A Adult 2011-08-29 00:00:00 Completed [facility] Hepatitis A Adult 2011-08-29 00:00:00 Completed [facility] Hepatitis A Adult 2011-08-29 00:00:00 Completed [facility] Hepatitis A Adult 2011-08-29 00:00:00 Completed Hepatitis A Adult 2011-08-29 00:00:00 Completed Hepatitis A Adult 2011-08-29 00:00:00 Completed [facility] Hepatitis A Adult 2011-08-29 00:00:00 Completed [facility] Hepatitis A Adult 2011-08-29 00:00:00 Completed [facility] Hepatitis A Adult 2011-08-29 00:00:00 Completed [facility] Hepatitis A Adult 2011-08-29 00:00:00 Completed [facility] Hepatitis A Adult 2011-08-29 00:00:00 Completed [facility] Hepatitis A Adult 2011-08-29 00:00:00 Completed [facility] Hepatitis A Adult 2011-08-29 00:00:00 Completed [facility] Hepatitis A Adult 2011-08-29 00:00:00 Completed [facility] Hepatitis A Adult 2011-08-29 00:00:00 Completed [facility] Meningococcal Polysaccharide (groups A, C, Y and W-135) conjugate vaccine (MCV4P) 2009-02-28 00:00:00 Completed [facility] TDAP 2009-02-28 00:00:00 Completed [facility] Varicella (varivax)(chicken pox) 2009-02-28 00:00:00 Completed [facility] HEPATITIS A 2009-02-28 00:00:00 Completed [facility] HEPATITIS A 2009-02-28 00:00:00 Completed [facility] Meningococcal Polysaccharide (groups A, C, Y and W-135) conjugate vaccine (MCV4P) 2009-02-28 00:00:00 Completed [facility] TDAP 2009-02-28 00:00:00 Completed [facility] Varicella (varivax)(chicken pox) 2009-02-28 00:00:00 Completed [facility] HEPATITIS A 2009-02-28 00:00:00 Completed [facility] Meningococcal Polysaccharide (groups A, C, Y and W-135) conjugate vaccine (MCV4P) 2009-02-28 00:00:00 Completed [facility] TDAP 2009-02-28 00:00:00 Completed [facility] Varicella (varivax)(chicken pox) 2009-02-28 00:00:00 Completed [facility] HEPATITIS A 2009-02-28 00:00:00 Completed [facility] Meningococcal Polysaccharide (groups A, C, Y and W-135) conjugate vaccine (MCV4P) 2009-02-28 00:00:00 Completed [facility] TDAP 2009-02-28 00:00:00 Completed [facility] Varicella (varivax)(chicken pox) 2009-02-28 00:00:00 Completed [facility] HEPATITIS A 2009-02-28 00:00:00 Completed [facility] Meningococcal Polysaccharide (groups A, C, Y and W-135) conjugate vaccine (MCV4P) 2009-02-28 00:00:00 Completed [facility] TDAP 2009-02-28 00:00:00 Completed [facility] Varicella (varivax)(chicken pox) 2009-02-28 00:00:00 Completed [facility] HEPATITIS A 2009-02-28 00:00:00 Completed [facility] Meningococcal Polysaccharide (groups A, C, Y and W-135) conjugate vaccine (MCV4P) 2009-02-28 00:00:00 Completed [facility] TDAP 2009-02-28 00:00:00 Completed [facility] Varicella (varivax)(chicken pox) 2009-02-28 00:00:00 Completed [facility] HEPATITIS A 2009-02-28 00:00:00 Completed [facility] Meningococcal Polysaccharide (groups A, C, Y and W-135) conjugate vaccine (MCV4P) 2009-02-28 00:00:00 Completed [facility] TDAP 2009-02-28 00:00:00 Completed [facility] Varicella (varivax)(chicken pox) 2009-02-28 00:00:00 Completed [facility] HEPATITIS A 2009-02-28 00:00:00 Completed [facility] Meningococcal Polysaccharide (groups A, C, Y and W-135) conjugate vaccine (MCV4P) 2009-02-28 00:00:00 Completed [facility] TDAP 2009-02-28 00:00:00 Completed [facility] Varicella (varivax)(chicken pox) 2009-02-28 00:00:00 Completed [facility] HEPATITIS A 2009-02-28 00:00:00 Completed [facility] Meningococcal Polysaccharide (groups A, C, Y and W-135) conjugate vaccine (MCV4P) 2009-02-28 00:00:00 Completed [facility] TDAP 2009-02-28 00:00:00 Completed [facility] Varicella (varivax)(chicken pox) 2009-02-28 00:00:00 Completed [facility] HEPATITIS A 2009-02-28 00:00:00 Completed Meningococcal Polysaccharide (groups A, C, Y and W-135) conjugate vaccine (MCV4P) 2009-02-28 00:00:00 Completed TDAP 2009-02-28 00:00:00 Completed Varicella (varivax)(chicken pox) 2009-02-28 00:00:00 Completed HEPATITIS A 2009-02-28 00:00:00 Completed Meningococcal Polysaccharide (groups A, C, Y and W-135) conjugate vaccine (MCV4P) 2009-02-28 00:00:00 Completed TDAP 2009-02-28 00:00:00 Completed Varicella (varivax)(chicken pox) 2009-02-28 00:00:00 Completed HEPATITIS A 2009-02-28 00:00:00 Completed [facility] Meningococcal Polysaccharide (groups A, C, Y and W-135) conjugate vaccine (MCV4P) 2009-02-28 00:00:00 Completed [facility] TDAP 2009-02-28 00:00:00 Completed [facility] Varicella (varivax)(chicken pox) 2009-02-28 00:00:00 Completed [facility] HEPATITIS A 2009-02-28 00:00:00 Completed [facility] Meningococcal Polysaccharide (groups A, C, Y and W-135) conjugate vaccine (MCV4P) 2009-02-28 00:00:00 Completed [facility] TDAP 2009-02-28 00:00:00 Completed [facility] Varicella (varivax)(chicken pox) 2009-02-28 00:00:00 Completed [facility] HEPATITIS A 2009-02-28 00:00:00 Completed [facility] Meningococcal Polysaccharide (groups A, C, Y and W-135) conjugate vaccine (MCV4P) 2009-02-28 00:00:00 Completed [facility] TDAP 2009-02-28 00:00:00 Completed [facility] Varicella (varivax)(chicken pox) 2009-02-28 00:00:00 Completed [facility] HEPATITIS A 2009-02-28 00:00:00 Completed [facility] Meningococcal Polysaccharide (groups A, C, Y and W-135) conjugate vaccine (MCV4P) 2009-02-28 00:00:00 Completed [facility] TDAP 2009-02-28 00:00:00 Completed [facility] Varicella (varivax)(chicken pox) 2009-02-28 00:00:00 Completed [facility] HEPATITIS A 2009-02-28 00:00:00 Completed [facility] Meningococcal Polysaccharide (groups A, C, Y and W-135) conjugate vaccine (MCV4P) 2009-02-28 00:00:00 Completed [facility] TDAP 2009-02-28 00:00:00 Completed [facility] Varicella (varivax)(chicken pox) 2009-02-28 00:00:00 Completed [facility] HEPATITIS A 2009-02-28 00:00:00 Completed [facility] Meningococcal Polysaccharide (groups A, C, Y and W-135) conjugate vaccine (MCV4P) 2009-02-28 00:00:00 Completed [facility] TDAP 2009-02-28 00:00:00 Completed [facility] Varicella (varivax)(chicken pox) 2009-02-28 00:00:00 Completed [facility] HEPATITIS A 2009-02-28 00:00:00 Completed [facility] Meningococcal Polysaccharide (groups A, C, Y and W-135) conjugate vaccine (MCV4P) 2009-02-28 00:00:00 Completed [facility] TDAP 2009-02-28 00:00:00 Completed [facility] Varicella (varivax)(chicken pox) 2009-02-28 00:00:00 Completed [facility] HEPATITIS A 2009-02-28 00:00:00 Completed [facility] Meningococcal Polysaccharide (groups A, C, Y and W-135) conjugate vaccine (MCV4P) 2009-02-28 00:00:00 Completed [facility] TDAP 2009-02-28 00:00:00 Completed [facility] Varicella (varivax)(chicken pox) 2009-02-28 00:00:00 Completed [facility] HEPATITIS A 2009-02-28 00:00:00 Completed [facility] Meningococcal Polysaccharide (groups A, C, Y and W-135) conjugate vaccine (MCV4P) 2009-02-28 00:00:00 Completed [facility] TDAP 2009-02-28 00:00:00 Completed [facility] Varicella (varivax)(chicken pox) 2009-02-28 00:00:00 Completed [facility] HEPATITIS A 2009-02-28 00:00:00 Completed [facility] Meningococcal Polysaccharide (groups A, C, Y and W-135) conjugate vaccine (MCV4P) 2009-02-28 00:00:00 Completed [facility] TDAP 2009-02-28 00:00:00 Completed [facility] Varicella (varivax)(chicken pox) 2009-02-28 00:00:00 Completed [facility] Poliovirus, Live, Oral, Trivalent 1999-04-26 00:00:00 Completed [facility] DTaP, Unspecified Formulation 1999-04-26 00:00:00 Completed [facility] Hep B, Adol or Pedi Dosage 1999-04-26 00:00:00 Completed [facility] DTaP, Unspecified Formulation 1999-04-26 00:00:00 Completed [facility] Hep B, Adol or Pedi Dosage 1999-04-26 00:00:00 Completed [facility] Poliovirus, Live, Oral, Trivalent 1999-04-26 00:00:00 Completed [facility] DTaP, Unspecified Formulation 1999-04-26 00:00:00 Completed [facility] Hep B, Adol or Pedi Dosage 1999-04-26 00:00:00 Completed [facility] Poliovirus, Live, Oral, Trivalent 1999-04-26 00:00:00 Completed [facility] DTaP, Unspecified Formulation 1999-04-26 00:00:00 Completed [facility] Hep B, Adol or Pedi Dosage 1999-04-26 00:00:00 Completed [facility] Poliovirus, Live, Oral, Trivalent 1999-04-26 00:00:00 Completed [facility] DTaP, Unspecified Formulation 1999-04-26 00:00:00 Completed [facility] Hep B, Adol or Pedi Dosage 1999-04-26 00:00:00 Completed [facility] Poliovirus, Live, Oral, Trivalent 1999-04-26 00:00:00 Completed [facility] DTaP, Unspecified Formulation 1999-04-26 00:00:00 Completed [facility] Hep B, Adol or Pedi Dosage 1999-04-26 00:00:00 Completed [facility] Poliovirus, Live, Oral, Trivalent 1999-04-26 00:00:00 Completed [facility] DTaP, Unspecified Formulation 1999-04-26 00:00:00 Completed [facility] Hep B, Adol or Pedi Dosage 1999-04-26 00:00:00 Completed [facility] Poliovirus, Live, Oral, Trivalent 1999-04-26 00:00:00 Completed [facility] DTaP, Unspecified Formulation 1999-04-26 00:00:00 Completed [facility] Hep B, Adol or Pedi Dosage 1999-04-26 00:00:00 Completed [facility] Poliovirus, Live, Oral, Trivalent 1999-04-26 00:00:00 Completed [facility] DTaP, Unspecified Formulation 1999-04-26 00:00:00 Completed [facility] Hep B, Adol or Pedi Dosage 1999-04-26 00:00:00 Completed [facility] Poliovirus, Live, Oral, Trivalent 1999-04-26 00:00:00 Completed [facility] DTaP, Unspecified Formulation 1999-04-26 00:00:00 Completed Hep B, Adol or Pedi Dosage 1999-04-26 00:00:00 Completed Poliovirus, Live, Oral, Trivalent 1999-04-26 00:00:00 Completed DTaP, Unspecified Formulation 1999-04-26 00:00:00 Completed Hep B, Adol or Pedi Dosage 1999-04-26 00:00:00 Completed Poliovirus, Live, Oral, Trivalent 1999-04-26 00:00:00 Completed DTaP, Unspecified Formulation 1999-04-26 00:00:00 Completed [facility] Hep B, Adol or Pedi Dosage 1999-04-26 00:00:00 Completed [facility] Poliovirus, Live, Oral, Trivalent 1999-04-26 00:00:00 Completed [facility] DTaP, Unspecified Formulation 1999-04-26 00:00:00 Completed [facility] Hep B, Adol or Pedi Dosage 1999-04-26 00:00:00 Completed [facility] Poliovirus, Live, Oral, Trivalent 1999-04-26 00:00:00 Completed [facility] DTaP, Unspecified Formulation 1999-04-26 00:00:00 Completed [facility] Hep B, Adol or Pedi Dosage 1999-04-26 00:00:00 Completed [facility] Poliovirus, Live, Oral, Trivalent 1999-04-26 00:00:00 Completed [facility] DTaP, Unspecified Formulation 1999-04-26 00:00:00 Completed [facility] Hep B, Adol or Pedi Dosage 1999-04-26 00:00:00 Completed [facility] Poliovirus, Live, Oral, Trivalent 1999-04-26 00:00:00 Completed [facility] DTaP, Unspecified Formulation 1999-04-26 00:00:00 Completed [facility] Hep B, Adol or Pedi Dosage 1999-04-26 00:00:00 Completed [facility] Poliovirus, Live, Oral, Trivalent 1999-04-26 00:00:00 Completed [facility] DTaP, Unspecified Formulation 1999-04-26 00:00:00 Completed [facility] Hep B, Adol or Pedi Dosage 1999-04-26 00:00:00 Completed [facility] Poliovirus, Live, Oral, Trivalent 1999-04-26 00:00:00 Completed [facility] DTaP, Unspecified Formulation 1999-04-26 00:00:00 Completed [facility] Hep B, Adol or Pedi Dosage 1999-04-26 00:00:00 Completed [facility] Poliovirus, Live, Oral, Trivalent 1999-04-26 00:00:00 Completed [facility] DTaP, Unspecified Formulation 1999-04-26 00:00:00 Completed [facility] Hep B, Adol or Pedi Dosage 1999-04-26 00:00:00 Completed [facility] Poliovirus, Live, Oral, Trivalent 1999-04-26 00:00:00 Completed [facility] DTaP, Unspecified Formulation 1999-04-26 00:00:00 Completed [facility] Hep B, Adol or Pedi Dosage 1999-04-26 00:00:00 Completed [facility] Poliovirus, Live, Oral, Trivalent 1999-04-26 00:00:00 Completed [facility] DTaP, Unspecified Formulation 1999-04-26 00:00:00 Completed [facility] Hep B, Adol or Pedi Dosage 1999-04-26 00:00:00 Completed [facility] Poliovirus, Live, Oral, Trivalent 1999-04-26 00:00:00 Completed [facility] DTaP, Unspecified Formulation 1998-05-04 00:00:00 Completed [facility] DTaP, Unspecified Formulation 1998-05-04 00:00:00 Completed [facility] DTaP, Unspecified Formulation 1998-05-04 00:00:00 Completed [facility] DTaP, Unspecified Formulation 1998-05-04 00:00:00 Completed [facility] DTaP, Unspecified Formulation 1998-05-04 00:00:00 Completed [facility] DTaP, Unspecified Formulation 1998-05-04 00:00:00 Completed [facility] DTaP, Unspecified Formulation 1998-05-04 00:00:00 Completed [facility] DTaP, Unspecified Formulation 1998-05-04 00:00:00 Completed [facility] DTaP, Unspecified Formulation 1998-05-04 00:00:00 Completed [facility] DTaP, Unspecified Formulation 1998-05-04 00:00:00 Completed DTaP, Unspecified Formulation 1998-05-04 00:00:00 Completed DTaP, Unspecified Formulation 1998-05-04 00:00:00 Completed [facility] DTaP, Unspecified Formulation 1998-05-04 00:00:00 Completed [facility] DTaP, Unspecified Formulation 1998-05-04 00:00:00 Completed [facility] DTaP, Unspecified Formulation 1998-05-04 00:00:00 Completed [facility] DTaP, Unspecified Formulation 1998-05-04 00:00:00 Completed [facility] DTaP, Unspecified Formulation 1998-05-04 00:00:00 Completed [facility] DTaP, Unspecified Formulation 1998-05-04 00:00:00 Completed [facility] DTaP, Unspecified Formulation 1998-05-04 00:00:00 Completed [facility] DTaP, Unspecified Formulation 1998-05-04 00:00:00 Completed [facility] DTaP, Unspecified Formulation 1998-05-04 00:00:00 Completed [facility] Haemophilus influenzae type b vaccine, conjugate unspecified formulation 1998-03-03 00:00:00 Completed [facility] MMR 1998-03-03 00:00:00 Completed [facility] Poliovirus, Live, Oral, Trivalent 1998-03-03 00:00:00 Completed [facility] DTaP, Unspecified Formulation 1998-03-03 00:00:00 Completed [facility] Hep B, Adol or Pedi Dosage 1998-03-03 00:00:00 Completed [facility] DTaP, Unspecified Formulation 1998-03-03 00:00:00 Completed [facility] Hep B, Adol or Pedi Dosage 1998-03-03 00:00:00 Completed [facility] Haemophilus influenzae type b vaccine, conjugate unspecified formulation 1998-03-03 00:00:00 Completed [facility] MMR 1998-03-03 00:00:00 Completed [facility] Poliovirus, Live, Oral, Trivalent 1998-03-03 00:00:00 Completed [facility] DTaP, Unspecified Formulation 1998-03-03 00:00:00 Completed [facility] Hep B, Adol or Pedi Dosage 1998-03-03 00:00:00 Completed [facility] Haemophilus influenzae type b vaccine, conjugate unspecified formulation 1998-03-03 00:00:00 Completed [facility] MMR 1998-03-03 00:00:00 Completed [facility] Poliovirus, Live, Oral, Trivalent 1998-03-03 00:00:00 Completed [facility] DTaP, Unspecified Formulation 1998-03-03 00:00:00 Completed [facility] Hep B, Adol or Pedi Dosage 1998-03-03 00:00:00 Completed [facility] Haemophilus influenzae type b vaccine, conjugate unspecified formulation 1998-03-03 00:00:00 Completed [facility] MMR 1998-03-03 00:00:00 Completed [facility] Poliovirus, Live, Oral, Trivalent 1998-03-03 00:00:00 Completed [facility] DTaP, Unspecified Formulation 1998-03-03 00:00:00 Completed [facility] Hep B, Adol or Pedi Dosage 1998-03-03 00:00:00 Completed [facility] Haemophilus influenzae type b vaccine, conjugate unspecified formulation 1998-03-03 00:00:00 Completed [facility] MMR 1998-03-03 00:00:00 Completed [facility] Poliovirus, Live, Oral, Trivalent 1998-03-03 00:00:00 Completed [facility] DTaP, Unspecified Formulation 1998-03-03 00:00:00 Completed [facility] Hep B, Adol or Pedi Dosage 1998-03-03 00:00:00 Completed [facility] Haemophilus influenzae type b vaccine, conjugate unspecified formulation 1998-03-03 00:00:00 Completed [facility] MMR 1998-03-03 00:00:00 Completed [facility] Poliovirus, Live, Oral, Trivalent 1998-03-03 00:00:00 Completed [facility] DTaP, Unspecified Formulation 1998-03-03 00:00:00 Completed [facility] Hep B, Adol or Pedi Dosage 1998-03-03 00:00:00 Completed [facility] Haemophilus influenzae type b vaccine, conjugate unspecified formulation 1998-03-03 00:00:00 Completed [facility] MMR 1998-03-03 00:00:00 Completed [facility] Poliovirus, Live, Oral, Trivalent 1998-03-03 00:00:00 Completed [facility] DTaP, Unspecified Formulation 1998-03-03 00:00:00 Completed [facility] Hep B, Adol or Pedi Dosage 1998-03-03 00:00:00 Completed [facility] Haemophilus influenzae type b vaccine, conjugate unspecified formulation 1998-03-03 00:00:00 Completed [facility] MMR 1998-03-03 00:00:00 Completed [facility] Poliovirus, Live, Oral, Trivalent 1998-03-03 00:00:00 Completed [facility] DTaP, Unspecified Formulation 1998-03-03 00:00:00 Completed [facility] Hep B, Adol or Pedi Dosage 1998-03-03 00:00:00 Completed [facility] Haemophilus influenzae type b vaccine, conjugate unspecified formulation 1998-03-03 00:00:00 Completed [facility] MMR 1998-03-03 00:00:00 Completed [facility] Poliovirus, Live, Oral, Trivalent 1998-03-03 00:00:00 Completed [facility] DTaP, Unspecified Formulation 1998-03-03 00:00:00 Completed [facility] Hep B, Adol or Pedi Dosage 1998-03-03 00:00:00 Completed Haemophilus influenzae type b vaccine, conjugate unspecified formulation 1998-03-03 00:00:00 Completed MMR 1998-03-03 00:00:00 Completed Poliovirus, Live, Oral, Trivalent 1998-03-03 00:00:00 Completed DTaP, Unspecified Formulation 1998-03-03 00:00:00 Completed [facility] Hep B, Adol or Pedi Dosage 1998-03-03 00:00:00 Completed Haemophilus influenzae type b vaccine, conjugate unspecified formulation 1998-03-03 00:00:00 Completed MMR 1998-03-03 00:00:00 Completed Poliovirus, Live, Oral, Trivalent 1998-03-03 00:00:00 Completed DTaP, Unspecified Formulation 1998-03-03 00:00:00 Completed [facility] Hep B, Adol or Pedi Dosage 1998-03-03 00:00:00 Completed [facility] Haemophilus influenzae type b vaccine, conjugate unspecified formulation 1998-03-03 00:00:00 Completed [facility] MMR 1998-03-03 00:00:00 Completed [facility] Poliovirus, Live, Oral, Trivalent 1998-03-03 00:00:00 Completed [facility] DTaP, Unspecified Formulation 1998-03-03 00:00:00 Completed [facility] Hep B, Adol or Pedi Dosage 1998-03-03 00:00:00 Completed [facility] Haemophilus influenzae type b vaccine, conjugate unspecified formulation 1998-03-03 00:00:00 Completed [facility] MMR 1998-03-03 00:00:00 Completed [facility] Poliovirus, Live, Oral, Trivalent 1998-03-03 00:00:00 Completed [facility] DTaP, Unspecified Formulation 1998-03-03 00:00:00 Completed [facility] Hep B, Adol or Pedi Dosage 1998-03-03 00:00:00 Completed [facility] Haemophilus influenzae type b vaccine, conjugate unspecified formulation 1998-03-03 00:00:00 Completed [facility] MMR 1998-03-03 00:00:00 Completed [facility] Poliovirus, Live, Oral, Trivalent 1998-03-03 00:00:00 Completed [facility] DTaP, Unspecified Formulation 1998-03-03 00:00:00 Completed [facility] Hep B, Adol or Pedi Dosage 1998-03-03 00:00:00 Completed [facility] Haemophilus influenzae type b vaccine, conjugate unspecified formulation 1998-03-03 00:00:00 Completed [facility] MMR 1998-03-03 00:00:00 Completed [facility] Poliovirus, Live, Oral, Trivalent 1998-03-03 00:00:00 Completed [facility] DTaP, Unspecified Formulation 1998-03-03 00:00:00 Completed [facility] Hep B, Adol or Pedi Dosage 1998-03-03 00:00:00 Completed [facility] Haemophilus influenzae type b vaccine, conjugate unspecified formulation 1998-03-03 00:00:00 Completed [facility] MMR 1998-03-03 00:00:00 Completed [facility] Poliovirus, Live, Oral, Trivalent 1998-03-03 00:00:00 Completed [facility] DTaP, Unspecified Formulation 1998-03-03 00:00:00 Completed [facility] Hep B, Adol or Pedi Dosage 1998-03-03 00:00:00 Completed [facility] Haemophilus influenzae type b vaccine, conjugate unspecified formulation 1998-03-03 00:00:00 Completed [facility] MMR 1998-03-03 00:00:00 Completed [facility] Poliovirus, Live, Oral, Trivalent 1998-03-03 00:00:00 Completed [facility] DTaP, Unspecified Formulation 1998-03-03 00:00:00 Completed [facility] Hep B, Adol or Pedi Dosage 1998-03-03 00:00:00 Completed [facility] Haemophilus influenzae type b vaccine, conjugate unspecified formulation 1998-03-03 00:00:00 Completed [facility] MMR 1998-03-03 00:00:00 Completed [facility] Poliovirus, Live, Oral, Trivalent 1998-03-03 00:00:00 Completed [facility] DTaP, Unspecified Formulation 1998-03-03 00:00:00 Completed [facility] Hep B, Adol or Pedi Dosage 1998-03-03 00:00:00 Completed [facility] Haemophilus influenzae type b vaccine, conjugate unspecified formulation 1998-03-03 00:00:00 Completed [facility] MMR 1998-03-03 00:00:00 Completed [facility] Poliovirus, Live, Oral, Trivalent 1998-03-03 00:00:00 Completed [facility] DTaP, Unspecified Formulation 1998-03-03 00:00:00 Completed [facility] Hep B, Adol or Pedi Dosage 1998-03-03 00:00:00 Completed [facility] Haemophilus influenzae type b vaccine, conjugate unspecified formulation 1998-03-03 00:00:00 Completed [facility] MMR 1998-03-03 00:00:00 Completed [facility] Poliovirus, Live, Oral, Trivalent 1998-03-03 00:00:00 Completed [facility] DTaP, Unspecified Formulation 1998-03-03 00:00:00 Completed [facility] Hep B, Adol or Pedi Dosage 1998-03-03 00:00:00 Completed [facility] Haemophilus influenzae type b vaccine, conjugate unspecified formulation 1998-03-03 00:00:00 Completed [facility] MMR 1998-03-03 00:00:00 Completed [facility] Poliovirus, Live, Oral, Trivalent 1998-03-03 00:00:00 Completed [facility] Haemophilus influenzae type b vaccine, conjugate unspecified formulation 1998-01-25 00:00:00 Completed [facility] MMR 1998-01-25 00:00:00 Completed [facility] Poliovirus, Live, Oral, Trivalent 1998-01-25 00:00:00 Completed [facility] DTaP, Unspecified Formulation 1998-01-25 00:00:00 Completed [facility] Hep B, Adol or Pedi Dosage 1998-01-25 00:00:00 Completed [facility] DTaP, Unspecified Formulation 1998-01-25 00:00:00 Completed [facility] Hep B, Adol or Pedi Dosage 1998-01-25 00:00:00 Completed [facility] Haemophilus influenzae type b vaccine, conjugate unspecified formulation 1998-01-25 00:00:00 Completed [facility] MMR 1998-01-25 00:00:00 Completed [facility] Poliovirus, Live, Oral, Trivalent 1998-01-25 00:00:00 Completed [facility] DTaP, Unspecified Formulation 1998-01-25 00:00:00 Completed [facility] Hep B, Adol or Pedi Dosage 1998-01-25 00:00:00 Completed [facility] Haemophilus influenzae type b vaccine, conjugate unspecified formulation 1998-01-25 00:00:00 Completed [facility] MMR 1998-01-25 00:00:00 Completed [facility] Poliovirus, Live, Oral, Trivalent 1998-01-25 00:00:00 Completed [facility] DTaP, Unspecified Formulation 1998-01-25 00:00:00 Completed [facility] Hep B, Adol or Pedi Dosage 1998-01-25 00:00:00 Completed [facility] Haemophilus influenzae type b vaccine, conjugate unspecified formulation 1998-01-25 00:00:00 Completed [facility] MMR 1998-01-25 00:00:00 Completed [facility] Poliovirus, Live, Oral, Trivalent 1998-01-25 00:00:00 Completed [facility] DTaP, Unspecified Formulation 1998-01-25 00:00:00 Completed [facility] Hep B, Adol or Pedi Dosage 1998-01-25 00:00:00 Completed [facility] Haemophilus influenzae type b vaccine, conjugate unspecified formulation 1998-01-25 00:00:00 Completed [facility] MMR 1998-01-25 00:00:00 Completed [facility] Poliovirus, Live, Oral, Trivalent 1998-01-25 00:00:00 Completed [facility] DTaP, Unspecified Formulation 1998-01-25 00:00:00 Completed [facility] Hep B, Adol or Pedi Dosage 1998-01-25 00:00:00 Completed [facility] Haemophilus influenzae type b vaccine, conjugate unspecified formulation 1998-01-25 00:00:00 Completed [facility] MMR 1998-01-25 00:00:00 Completed [facility] Poliovirus, Live, Oral, Trivalent 1998-01-25 00:00:00 Completed [facility] DTaP, Unspecified Formulation 1998-01-25 00:00:00 Completed [facility] Hep B, Adol or Pedi Dosage 1998-01-25 00:00:00 Completed [facility] Haemophilus influenzae type b vaccine, conjugate unspecified formulation 1998-01-25 00:00:00 Completed [facility] MMR 1998-01-25 00:00:00 Completed [facility] Poliovirus, Live, Oral, Trivalent 1998-01-25 00:00:00 Completed [facility] DTaP, Unspecified Formulation 1998-01-25 00:00:00 Completed [facility] Hep B, Adol or Pedi Dosage 1998-01-25 00:00:00 Completed [facility] Haemophilus influenzae type b vaccine, conjugate unspecified formulation 1998-01-25 00:00:00 Completed [facility] MMR 1998-01-25 00:00:00 Completed [facility] Poliovirus, Live, Oral, Trivalent 1998-01-25 00:00:00 Completed [facility] DTaP, Unspecified Formulation 1998-01-25 00:00:00 Completed [facility] Hep B, Adol or Pedi Dosage 1998-01-25 00:00:00 Completed [facility] Haemophilus influenzae type b vaccine, conjugate unspecified formulation 1998-01-25 00:00:00 Completed [facility] MMR 1998-01-25 00:00:00 Completed [facility] Poliovirus, Live, Oral, Trivalent 1998-01-25 00:00:00 Completed [facility] DTaP, Unspecified Formulation 1998-01-25 00:00:00 Completed Hep B, Adol or Pedi Dosage 1998-01-25 00:00:00 Completed Haemophilus influenzae type b vaccine, conjugate unspecified formulation 1998-01-25 00:00:00 Completed MMR 1998-01-25 00:00:00 Completed Poliovirus, Live, Oral, Trivalent 1998-01-25 00:00:00 Completed DTaP, Unspecified Formulation 1998-01-25 00:00:00 Completed Hep B, Adol or Pedi Dosage 1998-01-25 00:00:00 Completed Haemophilus influenzae type b vaccine, conjugate unspecified formulation 1998-01-25 00:00:00 Completed MMR 1998-01-25 00:00:00 Completed Poliovirus, Live, Oral, Trivalent 1998-01-25 00:00:00 Completed DTaP, Unspecified Formulation 1998-01-25 00:00:00 Completed [facility] Hep B, Adol or Pedi Dosage 1998-01-25 00:00:00 Completed [facility] Haemophilus influenzae type b vaccine, conjugate unspecified formulation 1998-01-25 00:00:00 Completed [facility] MMR 1998-01-25 00:00:00 Completed [facility] Poliovirus, Live, Oral, Trivalent 1998-01-25 00:00:00 Completed [facility] DTaP, Unspecified Formulation 1998-01-25 00:00:00 Completed [facility] Hep B, Adol or Pedi Dosage 1998-01-25 00:00:00 Completed [facility] Haemophilus influenzae type b vaccine, conjugate unspecified formulation 1998-01-25 00:00:00 Completed [facility] MMR 1998-01-25 00:00:00 Completed [facility] Poliovirus, Live, Oral, Trivalent 1998-01-25 00:00:00 Completed [facility] DTaP, Unspecified Formulation 1998-01-25 00:00:00 Completed [facility] Hep B, Adol or Pedi Dosage 1998-01-25 00:00:00 Completed [facility] Haemophilus influenzae type b vaccine, conjugate unspecified formulation 1998-01-25 00:00:00 Completed [facility] MMR 1998-01-25 00:00:00 Completed [facility] Poliovirus, Live, Oral, Trivalent 1998-01-25 00:00:00 Completed [facility] DTaP, Unspecified Formulation 1998-01-25 00:00:00 Completed [facility] Hep B, Adol or Pedi Dosage 1998-01-25 00:00:00 Completed [facility] Haemophilus influenzae type b vaccine, conjugate unspecified formulation 1998-01-25 00:00:00 Completed [facility] MMR 1998-01-25 00:00:00 Completed [facility] Poliovirus, Live, Oral, Trivalent 1998-01-25 00:00:00 Completed [facility] DTaP, Unspecified Formulation 1998-01-25 00:00:00 Completed [facility] Hep B, Adol or Pedi Dosage 1998-01-25 00:00:00 Completed [facility] Haemophilus influenzae type b vaccine, conjugate unspecified formulation 1998-01-25 00:00:00 Completed [facility] MMR 1998-01-25 00:00:00 Completed [facility] Poliovirus, Live, Oral, Trivalent 1998-01-25 00:00:00 Completed [facility] DTaP, Unspecified Formulation 1998-01-25 00:00:00 Completed [facility] Hep B, Adol or Pedi Dosage 1998-01-25 00:00:00 Completed [facility] Haemophilus influenzae type b vaccine, conjugate unspecified formulation 1998-01-25 00:00:00 Completed [facility] MMR 1998-01-25 00:00:00 Completed [facility] Poliovirus, Live, Oral, Trivalent 1998-01-25 00:00:00 Completed [facility] DTaP, Unspecified Formulation 1998-01-25 00:00:00 Completed [facility] Hep B, Adol or Pedi Dosage 1998-01-25 00:00:00 Completed [facility] Haemophilus influenzae type b vaccine, conjugate unspecified formulation 1998-01-25 00:00:00 Completed [facility] MMR 1998-01-25 00:00:00 Completed [facility] Poliovirus, Live, Oral, Trivalent 1998-01-25 00:00:00 Completed [facility] DTaP, Unspecified Formulation 1998-01-25 00:00:00 Completed [facility] Hep B, Adol or Pedi Dosage 1998-01-25 00:00:00 Completed [facility] Haemophilus influenzae type b vaccine, conjugate unspecified formulation 1998-01-25 00:00:00 Completed [facility] MMR 1998-01-25 00:00:00 Completed [facility] Poliovirus, Live, Oral, Trivalent 1998-01-25 00:00:00 Completed [facility] DTaP, Unspecified Formulation 1998-01-25 00:00:00 Completed [facility] Hep B, Adol or Pedi Dosage 1998-01-25 00:00:00 Completed [facility] Haemophilus influenzae type b vaccine, conjugate unspecified formulation 1998-01-25 00:00:00 Completed [facility] MMR 1998-01-25 00:00:00 Completed [facility] Poliovirus, Live, Oral, Trivalent 1998-01-25 00:00:00 Completed [facility] DTaP, Unspecified Formulation 1998-01-25 00:00:00 Completed [facility] Hep B, Adol or Pedi Dosage 1998-01-25 00:00:00 Completed [facility] Haemophilus influenzae type b vaccine, conjugate unspecified formulation 1998-01-25 00:00:00 Completed [facility] MMR 1998-01-25 00:00:00 Completed [facility] Poliovirus, Live, Oral, Trivalent 1998-01-25 00:00:00 Completed [facility] MMR 1996-01-27 00:00:00 Completed [facility] MMR 1996-01-27 00:00:00 Completed [facility] MMR 1996-01-27 00:00:00 Completed [facility] MMR 1996-01-27 00:00:00 Completed [facility] MMR 1996-01-27 00:00:00 Completed [facility] MMR 1996-01-27 00:00:00 Completed [facility] MMR 1996-01-27 00:00:00 Completed [facility] MMR 1996-01-27 00:00:00 Completed [facility] MMR 1996-01-27 00:00:00 Completed [facility] MMR 1996-01-27 00:00:00 Completed MMR 1996-01-27 00:00:00 Completed MMR 1996-01-27 00:00:00 Completed [facility] MMR 1996-01-27 00:00:00 Completed [facility] MMR 1996-01-27 00:00:00 Completed [facility] MMR 1996-01-27 00:00:00 Completed [facility] MMR 1996-01-27 00:00:00 Completed [facility] MMR 1996-01-27 00:00:00 Completed [facility] MMR 1996-01-27 00:00:00 Completed [facility] MMR 1996-01-27 00:00:00 Completed [facility] MMR 1996-01-27 00:00:00 Completed [facility] MMR 1996-01-27 00:00:00 Completed [facility] MMR 1995-11-13 00:00:00 Completed [facility] DPT/HIB 1995-11-13 00:00:00 Completed [facility] DPT/HIB 1995-11-13 00:00:00 Completed [facility] MMR 1995-11-13 00:00:00 Completed [facility] DPT/HIB 1995-11-13 00:00:00 Completed [facility] MMR 1995-11-13 00:00:00 Completed [facility] DPT/HIB 1995-11-13 00:00:00 Completed [facility] MMR 1995-11-13 00:00:00 Completed [facility] DPT/HIB 1995-11-13 00:00:00 Completed [facility] MMR 1995-11-13 00:00:00 Completed [facility] DPT/HIB 1995-11-13 00:00:00 Completed [facility] MMR 1995-11-13 00:00:00 Completed [facility] DPT/HIB 1995-11-13 00:00:00 Completed [facility] MMR 1995-11-13 00:00:00 Completed [facility] DPT/HIB 1995-11-13 00:00:00 Completed [facility] MMR 1995-11-13 00:00:00 Completed [facility] DPT/HIB 1995-11-13 00:00:00 Completed [facility] MMR 1995-11-13 00:00:00 Completed [facility] DPT/HIB 1995-11-13 00:00:00 Completed MMR 1995-11-13 00:00:00 Completed DPT/HIB 1995-11-13 00:00:00 Completed MMR 1995-11-13 00:00:00 Completed DPT/HIB 1995-11-13 00:00:00 Completed [facility] MMR 1995-11-13 00:00:00 Completed [facility] DPT/HIB 1995-11-13 00:00:00 Completed [facility] MMR 1995-11-13 00:00:00 Completed [facility] DPT/HIB 1995-11-13 00:00:00 Completed [facility] MMR 1995-11-13 00:00:00 Completed [facility] DPT/HIB 1995-11-13 00:00:00 Completed [facility] MMR 1995-11-13 00:00:00 Completed [facility] DPT/HIB 1995-11-13 00:00:00 Completed [facility] MMR 1995-11-13 00:00:00 Completed [facility] DPT/HIB 1995-11-13 00:00:00 Completed [facility] MMR 1995-11-13 00:00:00 Completed [facility] DPT/HIB 1995-11-13 00:00:00 Completed [facility] MMR 1995-11-13 00:00:00 Completed [facility] DPT/HIB 1995-11-13 00:00:00 Completed [facility] MMR 1995-11-13 00:00:00 Completed [facility] DPT/HIB 1995-11-13 00:00:00 Completed [facility] MMR 1995-11-13 00:00:00 Completed [facility] DPT/HIB 1995-11-13 00:00:00 Completed [facility] MMR 1995-11-13 00:00:00 Completed [facility] DTaP, Unspecified Formulation Unknown Completed [facility] DPT/HIB Unknown Completed [facility] Hepatitis A Adult Unknown Completed Un [facility] HEPATITIS A Unknown Completed [facility] Hep B, Adol or Pedi Dosage Unknown Completed [facility] Haemophilus influenzae type b vaccine, conjugate unspecified formulation Unknown Completed [facility] Meningococcal Polysaccharide (groups A, C, Y and W-135) conjugate vaccine (MCV4P) Unknown Completed [facility] MMR Unknown Completed [facility] Poliovirus, Live, Oral, Trivalent Unknown Completed [facility] TDAP Unknown Completed [facility] Varicella (varivax)(chicken pox) Unknown Completed [facility] DTaP, Unspecified Formulation Unknown Completed [facility] DPT/HIB Unknown Completed [facility] Hepatitis A Adult Unknown [facility] Com[facility] Hep B, Adol or Pedi Dosage Unknown Completed [facility] Haemophilus influenzae type b vaccine, conjugate unspecified formulation Unknown Completed [facility] Meningococcal Polysaccharide (groups A, C, Y and W-135) conjugate vaccine (MCV4P) Unknown Completed [facility] MMR Unknown Completed [facility] Poliovirus, Live, Oral, Trivalent Unknown Completed [facility] TDAP Unknown Completed [facility] Varicella (varivax)(chicken pox) Unknown Completed [facility] DTaP, Unspecified Formulation Unknown Completed [facility] DPT/HIB Unknown Completed [facility] Hepatitis A Adult Unknown [facility], Adol or Pedi Dosage Unknown Completed [facility] Haemophilus influenzae type b vaccine, conjugate unspecified formulation Unknown Completed [facility] Meningococcal Polysaccharide (groups A, C, Y and W-135) conjugate vaccine (MCV4P) Unknown Completed [facility] MMR Unknown Completed [facility] Poliovirus, Live, Oral, Trivalent Unknown Completed [facility] TDAP Unknown Completed [facility] Varicella (varivax)(chicken pox) Unknown Completed [facility] DTaP, Unspecified Formulation Unknown Completed [facility] DPT/HIB Unknown Completed [facility] Hepatitis A Adult Unknown [facility] Completed [facility] Hep B, Adol or Pedi Dosage Unknown Completed [facility] Haemophilus influenzae type b vaccine, conjugate unspecified formulation Unknown Completed [facility] Meningococcal Polysaccharide (groups A, C, Y and W-135) conjugate vaccine (MCV4P) Unknown Completed [facility] MMR Unknown Completed [facility] Poliovirus, Live, Oral, Trivalent Unknown Completed [facility] TDAP Unknown Completed [facility] Varicella (varivax)(chicken pox) Unknown Completed [facility] DTaP, Unspecified Formulation Unknown Completed [facility] DPT/HIB Unknown Completed [facility] Hepatitis A Adult Unknown [facility] Hep B, Adol or Pedi Dosage Unknown Completed [facility] Haemophilus influenzae type b vaccine, conjugate unspecified formulation Unknown Completed [facility] Meningococcal Polysaccharide (groups A, C, Y and W-135) conjugate vaccine (MCV4P) Unknown Completed [facility] MMR Unknown Completed [facility] Poliovirus, Live, Oral, Trivalent Unknown Completed [facility] TDAP Unknown Completed [facility] Varicella (varivax)(chicken pox) Unknown Completed [facility] DTaP, Unspecified Formulation Unknown Completed [facility] DPT/HIB Unknown Completed [facility] Hepatitis A Adult Unknown [facility] B, Adol or Pedi Dosage Unknown Completed [facility] Haemophilus influenzae type b vaccine, conjugate unspecified formulation Unknown Completed [facility] Meningococcal Polysaccharide (groups A, C, Y and W-135) conjugate vaccine (MCV4P) Unknown Completed [facility] MMR Unknown Completed [facility] Poliovirus, Live, Oral, Trivalent Unknown Completed [facility] TDAP Unknown Completed [facility] Varicella (varivax)(chicken pox) Unknown Completed [facility] DTaP, Unspecified Formulation Unknown Completed [facility] DPT/HIB Unknown Completed [facility] Hepatitis A Adult Unknown [facility] Completed [facility] Hep B, Adol or Pedi Dosage Unknown Completed [facility] Haemophilus influenzae type b vaccine, conjugate unspecified formulation Unknown Completed [facility] Meningococcal Polysaccharide (groups A, C, Y and W-135) conjugate vaccine (MCV4P) Unknown Completed [facility] MMR Unknown Completed [facility] Poliovirus, Live, Oral, Trivalent Unknown Completed [facility] TDAP Unknown Completed [facility] Varicella (varivax)(chicken pox) Unknown Completed [facility] DTaP, Unspecified Formulation Unknown Completed [facility] DPT/HIB Unknown Completed [facility] Hepatitis A Adult Unknown [facility] Hep B, Adol or Pedi Dosage Unknown Completed [facility] Haemophilus influenzae type b vaccine, conjugate unspecified formulation Unknown Completed [facility] Meningococcal Polysaccharide (groups A, C, Y and W-135) conjugate vaccine (MCV4P) Unknown Completed [facility] MMR Unknown Completed [facility] Poliovirus, Live, Oral, Trivalent Unknown Completed [facility] TDAP Unknown Completed [facility] Varicella (varivax)(chicken pox) Unknown Completed [facility] DTaP, Unspecified Formulation Unknown Completed [facility] DPT/HIB Unknown Completed [facility] Hepatitis A Adult Unknown [facility] Completed [facility] Hep B, Adol or Pedi Dosage Unknown Completed [facility] Haemophilus influenzae type b vaccine, conjugate unspecified formulation Unknown Completed [facility] Meningococcal Polysaccharide (groups A, C, Y and W-135) conjugate vaccine (MCV4P) Unknown Completed [facility] MMR Unknown Completed [facility] Poliovirus, Live, Oral, Trivalent Unknown Completed [facility] TDAP Unknown Completed [facility] Varicella (varivax)(chicken pox) Unknown Completed [facility] DTaP, Unspecified Formulation Unknown Completed [facility] DPT/HIB Unknown Completed [facility] Hepatitis A Adult Unknown [facility] Completed [facility] Hep B, Adol or Pedi Dosage Unknown Completed [facility] Haemophilus influenzae type b vaccine, conjugate unspecified formulation Unknown Completed [facility] Meningococcal Polysaccharide (groups A, C, Y and W-135) conjugate vaccine (MCV4P) Unknown Completed [facility] MMR Unknown Completed [facility] Poliovirus, Live, Oral, Trivalent Unknown Completed [facility] TDAP Unknown Completed [facility] Varicella (varivax)(chicken pox) Unknown Completed [facility] DTaP, Unspecified Formulation Unknown Completed [facility] DPT/HIB Unknown Completed [facility] Hepatitis A Adult Unknown [facility] Completed [facility] Hep B, Adol or Pedi Dosage Unknown Completed [facility] Haemophilus influenzae type b vaccine, conjugate unspecified formulation Unknown Completed [facility] Meningococcal Polysaccharide (groups A, C, Y and W-135) conjugate vaccine (MCV4P) Unknown Completed [facility] MMR Unknown Completed [facility] Poliovirus, Live, Oral, Trivalent Unknown Completed [facility] TDAP Unknown Completed [facility] Varicella (varivax)(chicken pox) Unknown Completed [facility] DTaP, Unspecified Formulation Unknown Completed [facility] DPT/HIB Unknown Completed [facility] Hepatitis A Adult Unknown [facility] Completed [facility] Hep B, Adol or Pedi Dosage Unknown Completed [facility] Haemophilus influenzae type b vaccine, conjugate unspecified formulation Unknown Completed [facility] Meningococcal Polysaccharide (groups A, C, Y and W-135) conjugate vaccine (MCV4P) Unknown Completed [facility] MMR Unknown Completed [facility] Poliovirus, Live, Oral, Trivalent Unknown Completed [facility] TDAP Unknown Completed [facility] Varicella (varivax)(chicken pox) Unknown Completed [facility] DTaP, Unspecified Formulation Unknown Completed [facility] DPT/HIB Unknown Completed [facility] Hepatitis A Adult Unknown [facility] Completed [facility] Hep B, Adol or Pedi Dosage Unknown Completed [facility] Haemophilus influenzae type b vaccine, conjugate unspecified formulation Unknown Completed [facility] Meningococcal Polysaccharide (groups A, C, Y and W-135) conjugate vaccine (MCV4P) Unknown Completed [facility] MMR Unknown Completed [facility] Poliovirus, Live, Oral, Trivalent Unknown Completed [facility] TDAP Unknown Completed [facility] Varicella (varivax)(chicken pox) Unknown Completed [facility] DTaP, Unspecified Formulation Unknown Completed [facility] DPT/HIB Unknown Completed [facility] Hepatitis A Adult Unknown [facility] Completed [facility] Hep B, Adol or Pedi Dosage Unknown Completed [facility] Haemophilus influenzae type b vaccine, conjugate unspecified formulation Unknown Completed [facility] Meningococcal Polysaccharide (groups A, C, Y and W-135) conjugate vaccine (MCV4P) Unknown Completed [facility] MMR Unknown Completed [facility] Poliovirus, Live, Oral, Trivalent Unknown Completed [facility] TDAP Unknown Completed [facility] Varicella (varivax)(chicken pox) Unknown Completed [facility] DTaP, Unspecified Formulation Unknown Completed [facility] DPT/HIB Unknown Completed [facility] Hepatitis A Adult Unknown [facility] Completed [facility] Hep B, Adol or Pedi Dosage Unknown Completed [facility] Haemophilus influenzae type b vaccine, conjugate unspecified formulation Unknown Completed [facility] Meningococcal Polysaccharide (groups A, C, Y and W-135) conjugate vaccine (MCV4P) Unknown Completed [facility] MMR Unknown Completed [facility] Poliovirus, Live, Oral, Trivalent Unknown Completed [facility] TDAP Unknown Completed [facility] Varicella (varivax)(chicken pox) Unknown Completed [facility] DPT/HIB Unknown Completed [facility] Hepatitis A Adult Unknown [facility] Completed [facility] Meningococcal Polysaccharide (groups A, C, Y and W-135) conjugate vaccine (MCV4P) Unknown Completed [facility] TDAP Unknown Completed [facility] Varicella (varivax)(chicken pox) Unknown Completed [facility] DTaP, Unspecified Formulation Unknown Completed [facility] Hep B, Adol or Pedi Dosage Unknown Completed [facility] Haemophilus influenzae type b vaccine, conjugate unspecified formulation Unknown Completed [facility] MMR Unknown Completed [facility] Poliovirus, Live, Oral, Trivalent Unknown Completed [facility] DTaP, Unspecified Formulation Unknown Completed [facility] DPT/HIB Unknown Completed [facility] Hepatitis A Adult Unknown [facility] Com[facility] Hep B, Adol or Pedi Dosage Unknown Completed [facility] Haemophilus influenzae type b vaccine, conjugate unspecified formulation Unknown Completed [facility] Meningococcal Polysaccharide (groups A, C, Y and W-135) conjugate vaccine (MCV4P) Unknown Completed [facility] MMR Unknown Completed [facility] Poliovirus, Live, Oral, Trivalent Unknown Completed [facility] TDAP Unknown Completed [facility] Varicella (varivax)(chicken pox) Unknown Completed [facility] DTaP, Unspecified Formulation Unknown Completed [facility] DPT/HIB Unknown Completed [facility] Hepatitis A Adult Unknown [facility] Hep B, Adol or Pedi Dosage Unknown Completed [facility] Haemophilus influenzae type b vaccine, conjugate unspecified formulation Unknown Completed [facility] Meningococcal Polysaccharide (groups A, C, Y and W-135) conjugate vaccine (MCV4P) Unknown Completed [facility] MMR Unknown Completed [facility] Poliovirus, Live, Oral, Trivalent Unknown Completed [facility] TDAP Unknown Completed [facility] Varicella (varivax)(chicken pox) Unknown Completed [facility] DTaP, Unspecified Formulation Unknown Completed [facility] DPT/HIB Unknown Completed [facility] Hepatitis A Adult Unknown [facility] Hep B, Adol or Pedi Dosage Unknown Completed [facility] Haemophilus influenzae type b vaccine, conjugate unspecified formulation Unknown Completed [facility] Meningococcal Polysaccharide (groups A, C, Y and W-135) conjugate vaccine (MCV4P) Unknown Completed [facility] MMR Unknown Completed [facility] Poliovirus, Live, Oral, Trivalent Unknown Completed [facility] TDAP Unknown Completed [facility] Varicella (varivax)(chicken pox) Unknown Completed [facility] DTaP, Unspecified Formulation Unknown Completed [facility] DPT/HIB Unknown Completed [facility] Hepatitis A Adult Unknown [facility] Com[facility] Hep B, Adol or Pedi Dosage Unknown Completed [facility] Haemophilus influenzae type b vaccine, conjugate unspecified formulation Unknown Completed [facility] Meningococcal Polysaccharide (groups A, C, Y and W-135) conjugate vaccine (MCV4P) Unknown Completed [facility] MMR Unknown Completed [facility] Poliovirus, Live, Oral, Trivalent Unknown Completed [facility] TDAP Unknown Completed [facility] Varicella (varivax)(chicken pox) Unknown Completed [facility] DTaP, Unspecified Formulation Unknown Completed [facility] DPT/HIB Unknown Completed [facility] Hepatitis A Adult Unknown [facility] Com[facility] Hep B, Adol or Pedi Dosage Unknown Completed [facility] Haemophilus influenzae type b vaccine, conjugate unspecified formulation Unknown Completed [facility] Meningococcal Polysaccharide (groups A, C, Y and W-135) conjugate vaccine (MCV4P) Unknown Completed [facility] MMR Unknown Completed [facility] Poliovirus, Live, Oral, Trivalent Unknown Completed [facility] TDAP Unknown Completed [facility] Varicella (varivax)(chicken pox) Unknown Completed [facility] DTaP, Unspecified Formulation Unknown Completed [facility] DPT/HIB Unknown Completed [facility] Hepatitis A Adult Unknown [facility] Completed [facility] Hep B, Adol or Pedi Dosage Unknown Completed [facility] Haemophilus influenzae type b vaccine, conjugate unspecified formulation Unknown Completed [facility] Meningococcal Polysaccharide (groups A, C, Y and W-135) conjugate vaccine (MCV4P) Unknown Completed [facility] MMR Unknown Completed [facility] Poliovirus, Live, Oral, Trivalent Unknown Completed [facility] TDAP Unknown Completed [facility] Varicella (varivax)(chicken pox) Unknown Completed [facility] DTaP, Unspecified Formulation Unknown Completed [facility] DPT/HIB Unknown Completed [facility] Hepatitis A Adult Unknown Completed Un [facility] HEPATITIS A Unknown Completed [facility] Hep B, Adol or Pedi Dosage Unknown Completed [facility] Haemophilus influenzae type b vaccine, conjugate unspecified formulation Unknown Completed [facility] Meningococcal Polysaccharide (groups A, C, Y and W-135) conjugate vaccine (MCV4P) Unknown Completed [facility] MMR Unknown Completed [facility] Poliovirus, Live, Oral, Trivalent Unknown Completed [facility] TDAP Unknown Completed [facility] Varicella (varivax)(chicken pox) Unknown Completed [facility] DPT/HIB Unknown Completed [facility] Hepatitis A Adult Unknown [facility] Completed [facility] Meningococcal Polysaccharide (groups A, C, Y and W-135) conjugate vaccine (MCV4P) Unknown Completed [facility] TDAP Unknown Completed [facility] Varicella (varivax)(chicken pox) Unknown Completed [facility] DTaP, Unspecified Formulation Unknown Completed [facility] Hep B, Adol or Pedi Dosage Unknown Completed [facility] Haemophilus influenzae type b vaccine, conjugate unspecified formulation Unknown Completed [facility] MMR Unknown Completed [facility] Poliovirus, Live, Oral, Trivalent Unknown Completed [facility] DTaP, Unspecified Formulation Unknown Completed [facility] DPT/HIB Unknown Completed [facility] Hepatitis A Adult Unknown [facility] Unknown Completed [facility] Hep B, Adol or Pedi Dosage Unknown Completed [facility] Haemophilus influenzae type b vaccine, conjugate unspecified formulation Unknown Completed [facility] Meningococcal Polysaccharide (groups A, C, Y and W-135) conjugate vaccine (MCV4P) Unknown Completed [facility] MMR Unknown Completed [facility] Poliovirus, Live, Oral, Trivalent Unknown Completed [facility] TDAP Unknown Completed [facility] Varicella (varivax)(chicken pox) Unknown Completed [facility] DTaP, Unspecified Formulation Unknown Completed [facility] DPT/HIB Unknown Completed [facility] Hepatitis A Adult Unknown [facility] Unknown Completed [facility] Hep B, Adol or Pedi Dosage Unknown Completed [facility] Haemophilus influenzae type b vaccine, conjugate unspecified formulation Unknown Completed [facility] Meningococcal Polysaccharide (groups A, C, Y and W-135) conjugate vaccine (MCV4P) Unknown Completed [facility] MMR Unknown Completed [facility] Poliovirus, Live, Oral, Trivalent Unknown Completed [facility] TDAP Unknown Completed [facility] Varicella (varivax)(chicken pox) Unknown Completed [facility] DTaP, Unspecified Formulation Unknown Completed [facility] DPT/HIB Unknown Completed [facility] Hepatitis A Adult Unknown [facility] Hep B, Adol or Pedi Dosage Unknown Completed [facility] Haemophilus influenzae type b vaccine, conjugate unspecified formulation Unknown Completed [facility] Meningococcal Polysaccharide (groups A, C, Y and W-135) conjugate vaccine (MCV4P) Unknown Completed [facility] MMR Unknown Completed [facility] Poliovirus, Live, Oral, Trivalent Unknown Completed [facility] TDAP Unknown Completed [facility] Varicella (varivax)(chicken pox) Unknown Completed [facility] DTaP, Unspecified Formulation Unknown Completed [facility] DPT/HIB Unknown Completed [facility] Hepatitis A Adult Unknown [facility] Completed [facility] Hep B, Adol or Pedi Dosage Unknown Completed [facility] Haemophilus influenzae type b vaccine, conjugate unspecified formulation Unknown Completed [facility] Meningococcal Polysaccharide (groups A, C, Y and W-135) conjugate vaccine (MCV4P) Unknown Completed [facility] MMR Unknown Completed [facility] Poliovirus, Live, Oral, Trivalent Unknown Completed [facility] TDAP Unknown Completed [facility] Varicella (varivax)(chicken pox) Unknown Completed [facility] DTaP, Unspecified Formulation Unknown Completed [facility] DPT/HIB Unknown Completed [facility] Hepatitis A Adult Unknown [facility] Completed [facility] Hep B, Adol or Pedi Dosage Unknown Completed [facility] Haemophilus influenzae type b vaccine, conjugate unspecified formulation Unknown Completed [facility] Meningococcal Polysaccharide (groups A, C, Y and W-135) conjugate vaccine (MCV4P) Unknown Completed [facility] MMR Unknown Completed [facility] Poliovirus, Live, Oral, Trivalent Unknown Completed [facility] TDAP Unknown Completed [facility] Varicella (varivax)(chicken pox) Unknown Completed [facility] DTaP, Unspecified Formulation Unknown Completed [facility] DPT/HIB Unknown Completed [facility] Hepatitis A Adult Unknown [facility] Hep B, Adol or Pedi Dosage Unknown Completed [facility] Haemophilus influenzae type b vaccine, conjugate unspecified formulation Unknown Completed [facility] Meningococcal Polysaccharide (groups A, C, Y and W-135) conjugate vaccine (MCV4P) Unknown Completed [facility] MMR Unknown Completed [facility] Poliovirus, Live, Oral, Trivalent Unknown Completed [facility] TDAP Unknown Completed [facility] Varicella (varivax)(chicken pox) Unknown Completed [facility] DTaP, Unspecified Formulation Unknown Completed [facility] DPT/HIB Unknown Completed [facility] Hepatitis A Adult Unknown [facility] Completed [facility] Hep B, Adol or Pedi Dosage Unknown Completed [facility] Haemophilus influenzae type b vaccine, conjugate unspecified formulation Unknown Completed [facility] Meningococcal Polysaccharide (groups A, C, Y and W-135) conjugate vaccine (MCV4P) Unknown Completed [facility] MMR Unknown Completed [facility] Poliovirus, Live, Oral, Trivalent Unknown Completed [facility] TDAP Unknown Completed [facility] Varicella (varivax)(chicken pox) Unknown Completed [facility] DTaP, Unspecified Formulation Unknown Completed [facility] DPT/HIB Unknown Completed [facility] Hepatitis A Adult Unknown [facility] Completed [facility] Hep B, Adol or Pedi Dosage Unknown Completed [facility] Haemophilus influenzae type b vaccine, conjugate unspecified formulation Unknown Completed [facility] Meningococcal Polysaccharide (groups A, C, Y and W-135) conjugate vaccine (MCV4P) Unknown Completed [facility] MMR Unknown Completed [facility] Poliovirus, Live, Oral, Trivalent Unknown Completed [facility] TDAP Unknown Completed [facility] Varicella (varivax)(chicken pox) Unknown Completed [facility] DTaP, Unspecified Formulation Unknown Completed [facility] DPT/HIB Unknown Completed [facility] Hepatitis A Adult Unknown [facility] Completed [facility] Hep B, Adol or Pedi Dosage Unknown Completed [facility] Haemophilus influenzae type b vaccine, conjugate unspecified formulation Unknown Completed [facility] Meningococcal Polysaccharide (groups A, C, Y and W-135) conjugate vaccine (MCV4P) Unknown Completed [facility] MMR Unknown Completed [facility] Poliovirus, Live, Oral, Trivalent Unknown Completed [facility] TDAP Unknown Completed [facility] Varicella (varivax)(chicken pox) Unknown Completed [facility] DTaP, Unspecified Formulation Unknown Completed [facility] DPT/HIB Unknown Completed [facility] Hepatitis A Adult Unknown [facility] Com[facility] Hep B, Adol or Pedi Dosage Unknown Completed [facility] Haemophilus influenzae type b vaccine, conjugate unspecified formulation Unknown Completed [facility] Meningococcal Polysaccharide (groups A, C, Y and W-135) conjugate vaccine (MCV4P) Unknown Completed [facility] MMR Unknown Completed [facility] Poliovirus, Live, Oral, Trivalent Unknown Completed [facility] TDAP Unknown Completed [facility] Varicella (varivax)(chicken pox) Unknown Completed [facility] DTaP, Unspecified Formulation Unknown Completed [facility] DPT/HIB Unknown Completed [facility] Hepatitis A Adult Unknown [facility] Com[facility] Hep B, Adol or Pedi Dosage Unknown Completed [facility] Haemophilus influenzae type b vaccine, conjugate unspecified formulation Unknown Completed [facility] Meningococcal Polysaccharide (groups A, C, Y and W-135) conjugate vaccine (MCV4P) Unknown Completed [facility] MMR Unknown Completed [facility] Poliovirus, Live, Oral, Trivalent Unknown Completed [facility] TDAP Unknown Completed [facility] Varicella (varivax)(chicken pox) Unknown Completed [facility] DTaP, Unspecified Formulation Unknown Completed [facility] DPT/HIB Unknown Completed [facility] Hepatitis A Adult Unknown [facility] Completed [facility] Hep B, Adol or Pedi Dosage Unknown Completed [facility] Haemophilus influenzae type b vaccine, conjugate unspecified formulation Unknown Completed [facility] Meningococcal Polysaccharide (groups A, C, Y and W-135) conjugate vaccine (MCV4P) Unknown Completed [facility] MMR Unknown Completed [facility] Poliovirus, Live, Oral, Trivalent Unknown Completed [facility] TDAP Unknown Completed [facility] Varicella (varivax)(chicken pox) Unknown Completed [facility] DTaP, Unspecified Formulation Unknown Completed [facility] DPT/HIB Unknown Completed [facility] Hepatitis A Adult Unknown [facility] Completed [facility] Hep B, Adol or Pedi Dosage Unknown Completed [facility] Haemophilus influenzae type b vaccine, conjugate unspecified formulation Unknown Completed [facility] Meningococcal Polysaccharide (groups A, C, Y and W-135) conjugate vaccine (MCV4P) Unknown Completed [facility] MMR Unknown Completed [facility] Poliovirus, Live, Oral, Trivalent Unknown Completed [facility] TDAP Unknown Completed [facility] Varicella (varivax)(chicken pox) Unknown Completed [facility] DTaP, Unspecified Formulation Unknown Completed [facility] DPT/HIB Unknown Completed [facility] Hepatitis A Adult Unknown [facility] Unknown Completed [facility] Hep B, Adol or Pedi Dosage Unknown Completed [facility] Haemophilus influenzae type b vaccine, conjugate unspecified formulation Unknown Completed [facility] Meningococcal Polysaccharide (groups A, C, Y and W-135) conjugate vaccine (MCV4P) Unknown Completed [facility] MMR Unknown Completed [facility] Poliovirus, Live, Oral, Trivalent Unknown Completed [facility] TDAP Unknown Completed [facility] Varicella (varivax)(chicken pox) Unknown Completed [facility] DTaP, Unspecified Formulation Unknown Completed [facility] DPT/HIB Unknown Completed [facility] Hepatitis A Adult Unknown [facility] Completed [facility] Hep B, Adol or Pedi Dosage Unknown Completed [facility] Haemophilus influenzae type b vaccine, conjugate unspecified formulation Unknown Completed [facility] Meningococcal Polysaccharide (groups A, C, Y and W-135) conjugate vaccine (MCV4P) Unknown Completed [facility] MMR Unknown Completed [facility] Poliovirus, Live, Oral, Trivalent Unknown Completed [facility] TDAP Unknown Completed [facility] Varicella (varivax)(chicken pox) Unknown Completed [facility] DTaP, Unspecified Formulation Unknown Completed [facility] DPT/HIB Unknown Completed [facility] Hepatitis A Adult Unknown [facility] Completed [facility] Hep B, Adol or Pedi Dosage Unknown Completed [facility] Haemophilus influenzae type b vaccine, conjugate unspecified formulation Unknown Completed [facility] Meningococcal Polysaccharide (groups A, C, Y and W-135) conjugate vaccine (MCV4P) Unknown Completed [facility] MMR Unknown Completed [facility] Poliovirus, Live, Oral, Trivalent Unknown Completed [facility] TDAP Unknown Completed [facility] Varicella (varivax)(chicken pox) Unknown Completed [facility] DTaP, Unspecified Formulation Unknown Completed [facility] DPT/HIB Unknown Completed [facility] Hepatitis A Adult Unknown [facility] Completed [facility] Hep B, Adol or Pedi Dosage Unknown Completed [facility] Haemophilus influenzae type b vaccine, conjugate unspecified formulation Unknown Completed [facility] Meningococcal Polysaccharide (groups A, C, Y and W-135) conjugate vaccine (MCV4P) Unknown Completed [facility] MMR Unknown Completed [facility] Poliovirus, Live, Oral, Trivalent Unknown Completed [facility] TDAP Unknown Completed [facility] Varicella (varivax)(chicken pox) Unknown Completed [facility] DTaP, Unspecified Formulation Unknown Completed [facility] DPT/HIB Unknown Completed [facility] Hepatitis A Adult Unknown [facility] Com[facility] Hep B, Adol or Pedi Dosage Unknown Completed [facility] Haemophilus influenzae type b vaccine, conjugate unspecified formulation Unknown Completed [facility] Meningococcal Polysaccharide (groups A, C, Y and W-135) conjugate vaccine (MCV4P) Unknown Completed [facility] MMR Unknown Completed [facility] Poliovirus, Live, Oral, Trivalent Unknown Completed [facility] TDAP Unknown Completed [facility] Varicella (varivax)(chicken pox) Unknown Completed [facility] DTaP, Unspecified Formulation Unknown Completed [facility] DPT/HIB Unknown Completed [facility] Hepatitis A Adult Unknown [facility] Completed [facility] Hep B, Adol or Pedi Dosage Unknown Completed [facility] Haemophilus influenzae type b vaccine, conjugate unspecified formulation Unknown Completed [facility] Meningococcal Polysaccharide (groups A, C, Y and W-135) conjugate vaccine (MCV4P) Unknown Completed [facility] MMR Unknown Completed [facility] Poliovirus, Live, Oral, Trivalent Unknown Completed [facility] TDAP Unknown Completed [facility] Varicella (varivax)(chicken pox) Unknown Completed [facility] DTaP, Unspecified Formulation Unknown Completed [facility] DPT/HIB Unknown Completed [facility] Hepatitis A Adult Unknown [facility] Completed [facility] Hep B, Adol or Pedi Dosage Unknown Completed [facility] Haemophilus influenzae type b vaccine, conjugate unspecified formulation Unknown Completed [facility] Meningococcal Polysaccharide (groups A, C, Y and W-135) conjugate vaccine (MCV4P) Unknown Completed [facility] MMR Unknown Completed [facility] Poliovirus, Live, Oral, Trivalent Unknown Completed [facility] TDAP Unknown Completed [facility] Varicella (varivax)(chicken pox) Unknown Completed [facility] DTaP, Unspecified Formulation Unknown Completed [facility] DPT/HIB Unknown Completed [facility] Hepatitis A Adult Unknown [facility] Com[facility] Hep B, Adol or Pedi Dosage Unknown Completed [facility] Haemophilus influenzae type b vaccine, conjugate unspecified formulation Unknown Completed [facility] Meningococcal Polysaccharide (groups A, C, Y and W-135) conjugate vaccine (MCV4P) Unknown Completed [facility] MMR Unknown Completed [facility] Poliovirus, Live, Oral, Trivalent Unknown Completed [facility] TDAP Unknown Completed [facility] Varicella (varivax)(chicken pox) Unknown Completed [facility] DTaP, Unspecified Formulation Unknown Completed [facility] DPT/HIB Unknown Completed [facility]atitis A Adult [facility] Com[facility] Hep B, Adol or Pedi Dosage Unknown Completed [facility] Haemophilus influenzae type b vaccine, conjugate unspecified formulation Unknown Completed [facility] Meningococcal Polysaccharide (groups A, C, Y and W-135) conjugate vaccine (MCV4P) Unknown Completed [facility] MMR Unknown Completed [facility] Poliovirus, Live, Oral, Trivalent Unknown Completed [facility] TDAP Unknown Completed [facility] Varicella (varivax)(chicken pox) Unknown Completed [facility] DPT/HIB Unknown Completed [facility] Hepatitis A Adult Unknown [facility] Completed [facility] Meningococcal Polysaccharide (groups A, C, Y and W-135) conjugate vaccine (MCV4P) Unknown Completed [facility] TDAP Unknown Completed [facility] Varicella (varivax)(chicken pox) Unknown Completed [facility] DTaP, Unspecified Formulation Unknown Completed [facility] Hep B, Adol or Pedi Dosage Unknown Completed [facility] Haemophilus influenzae type b vaccine, conjugate unspecified formulation Unknown Completed [facility] MMR Unknown Completed [facility] Poliovirus, Live, Oral, Trivalent Unknown Completed [facility] DTaP, Unspecified Formulation Unknown Completed [facility] DPT/HIB Unknown Completed [facility] Hepatitis A Adult Unknown [facility] Unknown Completed [facility] Hep B, Adol or Pedi Dosage Unknown Completed [facility] Haemophilus influenzae type b vaccine, conjugate unspecified formulation Unknown Completed [facility] Meningococcal Polysaccharide (groups A, C, Y and W-135) conjugate vaccine (MCV4P) Unknown Completed [facility] MMR Unknown Completed [facility] Poliovirus, Live, Oral, Trivalent Unknown Completed [facility] TDAP Unknown Completed [facility] Varicella (varivax)(chicken pox) Unknown Completed [facility] DTaP, Unspecified Formulation Unknown Completed [facility] DPT/HIB Unknown Completed [facility] Hepatitis A Adult [facility] Completed [facility] Hep B, Adol or Pedi Dosage Unknown Completed [facility] Haemophilus influenzae type b vaccine, conjugate unspecified formulation Unknown Completed [facility] Meningococcal Polysaccharide (groups A, C, Y and W-135) conjugate vaccine (MCV4P) Unknown Completed [facility] MMR Unknown Completed [facility] Poliovirus, Live, Oral, Trivalent Unknown Completed [facility] TDAP Unknown Completed [facility] Varicella (varivax)(chicken pox) Unknown Completed [facility] DTaP, Unspecified Formulation Unknown Completed [facility] DPT/HIB Unknown Completed [facility] Hepatitis A Adult Unknown [facility] Unknown Completed [facility] Hep B, Adol or Pedi Dosage Unknown Completed [facility] Haemophilus influenzae type b vaccine, conjugate unspecified formulation Unknown Completed [facility] Meningococcal Polysaccharide (groups A, C, Y and W-135) conjugate vaccine (MCV4P) Unknown Completed [facility] MMR Unknown Completed [facility] Poliovirus, Live, Oral, Trivalent Unknown Completed [facility] TDAP Unknown Completed [facility] Varicella (varivax)(chicken pox) Unknown Completed [facility] DTaP, Unspecified Formulation Unknown Completed [facility] DPT/HIB Unknown Completed [facility] Hepatitis A Adult Unknown [facility] Unknown Completed [facility] Hep B, Adol or Pedi Dosage Unknown Completed [facility] Haemophilus influenzae type b vaccine, conjugate unspecified formulation Unknown Completed [facility] Meningococcal Polysaccharide (groups A, C, Y and W-135) conjugate vaccine (MCV4P) Unknown Completed [facility] MMR Unknown Completed [facility] Poliovirus, Live, Oral, Trivalent Unknown Completed [facility] TDAP Unknown Completed [facility] Varicella (varivax)(chicken pox) Unknown Completed [facility] DTaP, Unspecified Formulation Unknown Completed [facility] DPT/HIB Unknown Completed [facility] Hepatitis A Adult Unknown [facility] Completed [facility] Hep B, Adol or Pedi Dosage Unknown Completed [facility] Haemophilus influenzae type b vaccine, conjugate unspecified formulation Unknown Completed [facility] Meningococcal Polysaccharide (groups A, C, Y and W-135) conjugate vaccine (MCV4P) Unknown Completed [facility] MMR Unknown Completed [facility] Poliovirus, Live, Oral, Trivalent Unknown Completed [facility] TDAP Unknown Completed [facility] Varicella (varivax)(chicken pox) Unknown Completed [facility] DTaP, Unspecified Formulation Unknown Completed [facility] DPT/HIB Unknown Completed [facility] Hepatitis A Adult Unknown [facility] Unknown Completed [facility] Hep B, Adol or Pedi Dosage Unknown Completed [facility] Haemophilus influenzae type b vaccine, conjugate unspecified formulation Unknown Completed [facility] Meningococcal Polysaccharide (groups A, C, Y and W-135) conjugate vaccine (MCV4P) Unknown Completed [facility] MMR Unknown Completed [facility] Poliovirus, Live, Oral, Trivalent Unknown Completed [facility] TDAP Unknown Completed [facility] Varicella (varivax)(chicken pox) Unknown Completed [facility] DTaP, Unspecified Formulation Unknown Completed [facility] DPT/HIB Unknown Completed [facility] Hepatitis A Adult Unknown [facility] Unknown Completed [facility] Hep B, Adol or Pedi Dosage Unknown Completed [facility] Haemophilus influenzae type b vaccine, conjugate unspecified formulation Unknown Completed [facility] Meningococcal Polysaccharide (groups A, C, Y and W-135) conjugate vaccine (MCV4P) Unknown Completed [facility] MMR Unknown Completed [facility] Poliovirus, Live, Oral, Trivalent Unknown Completed [facility] TDAP Unknown Completed [facility] Varicella (varivax)(chicken pox) Unknown Completed [facility] Vital Signs Vital Name Observation Time Observation Value Comments S ource Systolic blood pressure 2024-07-17 22:06:00 142 mm[Hg] [facility] Diastolic blood pressure 2024-07-17 22:06:00 86 mm[Hg] [facility] Heart rate 2024-07-17 22:06:00 65 /min [facility] Body temperature 2024-07-17 22:06:00 36.5 Annabella [facility] Respiratory rate 2024-07-17 22:06:00 15 /min [facility] Oxygen saturation in Arterial blood by Pulse oximetry 2024-07-17 22:06:00 99 /min [facility] Body height 2024-07-17 19:13:00 188 cm [facility] Body weight 2024-07-17 19:13:00 104.327 kg [facility] BMI 2024-07-17 19:13:00 29.53 kg/m2 [facility] Systolic blood pressure 2024-03-17 16:45:00 139 mm[Hg] [facility] Diastolic blood pressure 2024-03-17 16:45:00 90 mm[Hg] [facility] Heart rate 2024-03-17 16:45:00 82 /min [facility] Body height 2024-03-17 16:45:00 188 cm [facility] Body weight 2024-03-17 16:45:00 101.152 kg [facility] BMI 2024-03-17 16:45:00 28.63 kg/m2 [facility] Oxygen saturation in Arterial blood by Pulse oximetry 2024-03-17 16:45:00 97 /min [facility] Systolic blood pressure 2023-12-20 17:49:00 130 mm[Hg] [facility] Diastolic blood pressure 2023-12-20 17:49:00 87 mm[Hg] [facility] Heart rate 2023-12-20 17:49:00 74 /min [facility] Body temperature 2023-12-20 17:49:00 37.06 Annabella [facility] Respiratory rate 2023-12-20 17:49:00 17 /min [facility] Body height 2023-12-20 17:49:00 188 cm [facility] Body weight 2023-12-20 17:49:00 99.083 kg [facility] BMI 2023-12-20 17:49:00 28.05 kg/m2 [facility] Oxygen saturation in Arterial blood by Pulse oximetry 2023-12-20 17:49:00 96 /min [facility] Systolic blood pressure 2023-08-13 00:00:00 145 mm[Hg] [facility] Diastolic blood pressure 2023-08-13 00:00:00 99 mm[Hg] [facility] Heart rate 2023-08-13 00:00:00 86 /min [facility] Respiratory rate 2023-08-13 00:00:00 16 /min [facility] Oxygen saturation in Arterial blood by Pulse oximetry 2023-08-13 00:00:00 97 /min [facility] Body temperature 2023-08-12 21:56:00 36.72 Annabella [facility] Body height 2023-08-12 21:56:00 188 cm [facility] Body weight 2023-08-12 21:56:00 101.606 kg [facility] BMI 2023-08-12 21:56:00 28.76 kg/m2 [facility] Systolic blood pressure 2023-07-05 15:10:00 131 mm[Hg] [facility] Diastolic blood pressure 2023-07-05 15:10:00 77 mm[Hg] [facility] Body temperature 2023-07-05 15:10:00 36.44 Annabella [facility] Body height 2023-07-05 15:10:00 188 cm [facility] Body weight 2023-07-05 15:10:00 101.606 kg [facility] BMI 2023-07-05 15:10:00 28.76 kg/m2 [facility] Body height 2023-06-06 20:17:00 188 cm [facility] Body weight 2023-06-06 20:17:00 99.791 kg [facility] BMI 2023-06-06 20:17:00 28.25 kg/m2 [facility] Systolic blood pressure 2023-05-25 19:35:00 145 mm[Hg] [facility] Diastolic blood pressure 2023-05-25 19:35:00 103 mm[Hg] [facility] Heart rate 2023-05-25 19:35:00 84 /min [facility] Body temperature 2023-05-25 19:35:00 36.72 Annabella [facility] Respiratory rate 2023-05-25 19:35:00 18 /min [facility] Body height 2023-05-25 19:35:00 188 cm [facility] Body weight 2023-05-25 19:35:00 99.791 kg [facility] BMI 2023-05-25 19:35:00 28.25 kg/m2 [facility] Oxygen saturation in Arterial blood by Pulse oximetry 2023-05-25 19:35:00 100 /min [facility] Systolic blood pressure 2023-05-16 15:17:00 136 mm[Hg] [facility] Diastolic blood pressure 2023-05-16 15:17:00 84 mm[Hg] [facility] Heart rate 2023-05-16 15:17:00 68 /min [facility] Body height 2023-05-16 15:17:00 188 cm [facility] Body weight 2023-05-16 15:17:00 99.791 kg [facility] BMI 2023-05-16 15:17:00 28.25 kg/m2 [facility] Systolic blood pressure 2023-04-30 15:51:00 130 mm[Hg] [facility] Diastolic blood pressure 2023-04-30 15:51:00 88 mm[Hg] [facility] Heart rate 2023-04-30 15:49:00 68 /min [facility] Respiratory rate 2023-04-30 15:49:00 18 /min [facility] Body height 2023-04-30 15:49:00 188 cm [facility] Body weight 2023-04-30 15:49:00 99.791 kg [facility] BMI 2023-04-30 15:49:00 28.25 kg/m2 [facility] Oxygen saturation in Arterial blood by Pulse oximetry 2023-04-30 15:49:00 98 /min [facility] Systolic blood pressure 2023-04-23 20:31:00 134 mm[Hg] [facility] Diastolic blood pressure 2023-04-23 20:31:00 87 mm[Hg] [facility] Heart rate 2023-04-23 20:31:00 78 /min [facility] Respiratory rate 2023-04-23 20:31:00 18 /min [facility] Body height 2023-04-23 20:31:00 182.9 cm [facility] Body weight 2023-04-23 20:31:00 100.925 kg [facility] BMI 2023-04-23 20:31:00 30.18 kg/m2 [facility] Oxygen saturation in Arterial blood by Pulse oximetry 2023-04-23 20:31:00 96 /min [facility] Systolic blood pressure 2023-01-03 19:17:00 136 mm[Hg] [facility] Diastolic blood pressure 2023-01-03 19:17:00 84 mm[Hg] [facility] Heart rate 2023-01-03 19:17:00 83 /min [facility] Body temperature 2023-01-03 19:13:00 36.61 Annabella [facility] Body height 2023-01-03 19:13:00 188 cm [facility] Body weight 2023-01-03 19:13:00 99.202 kg [facility] BMI 2023-01-03 19:13:00 28.08 kg/m2 [facility] Oxygen saturation in Arterial blood by Pulse oximetry 2023-01-03 19:13:00 98 /min [facility] Systolic blood pressure 2022-12-12 20:32:00 143 mm[Hg] [facility] Diastolic blood pressure 2022-12-12 20:32:00 92 mm[Hg] [facility] Heart rate 2022-12-12 20:19:00 92 /min [facility] Respiratory rate 2022-12-12 20:19:00 22 /min [facility] Body height 2022-12-12 20:19:00 188 cm [facility] Body weight 2022-12-12 20:19:00 97.977 kg [facility] BMI 2022-12-12 20:19:00 27.73 kg/m2 [facility] Oxygen saturation in Arterial blood by Pulse oximetry 2022-12-12 20:19:00 99 /min [facility] Systolic blood pressure 2022-12-12 01:19:00 151 mm[Hg] [facility] Diastolic blood pressure 2022-12-12 01:19:00 97 mm[Hg] [facility] Heart rate 2022-12-12 01:19:00 86 /min [facility] Respiratory rate 2022-12-12 01:19:00 18 /min [facility] Oxygen saturation in Arterial blood by Pulse oximetry 2022-12-12 01:19:00 99 /min [facility] Body temperature 2022-12-11 23:51:47 36.67 Annabella [facility] Body weight 2022-12-11 22:02:00 97.977 kg [facility] BMI 2022-12-11 22:02:00 27.73 kg/m2 [facility] Systolic blood pressure 2022-12-08 23:30:00 145 mm[Hg] [facility] Diastolic blood pressure 2022-12-08 23:30:00 95 mm[Hg] [facility] Heart rate 2022-12-08 23:30:00 61 /min [facility] Respiratory rate 2022-12-08 23:30:00 16 /min [facility] Oxygen saturation in Arterial blood by Pulse oximetry 2022-12-08 23:30:00 98 /min [facility] Body temperature 2022-12-08 20:26:00 36.78 Annabella [facility] Body height 2022-12-08 20:26:00 188 cm [facility] Body weight 2022-12-08 20:26:00 97.977 kg [facility] BMI 2022-12-08 20:26:00 27.73 kg/m2 [facility] Systolic blood pressure 2022-12-05 18:21:00 138 mm[Hg] [facility] Diastolic blood pressure 2022-12-05 18:21:00 100 mm[Hg] [facility] Heart rate 2022-12-05 18:21:00 77 /min [facility] Oxygen saturation in Arterial blood by Pulse oximetry 2022-12-05 18:21:00 98 /min [facility] Body temperature 2022-12-05 18:19:00 36.61 Annabella [facility] Respiratory rate 2022-12-05 18:19:00 18 /min [facility] Body height 2022-12-05 18:19:00 188 cm [facility] Body weight 2022-12-05 18:19:00 97.07 kg [facility] BMI 2022-12-05 18:19:00 27.48 kg/m2 [facility] Systolic blood pressure 2022-12-05 14:58:00 131 mm[Hg] [facility] Diastolic blood pressure 2022-12-05 14:58:00 93 mm[Hg] [facility] Oxygen saturation in Arterial blood by Pulse oximetry 2022-12-05 14:50:00 99 /min [facility] Heart rate 2022-12-05 14:50:00 86 /min [facility] Body temperature 2022-12-05 14:50:00 36.5 Annabella [facility] Respiratory rate 2022-12-05 14:50:00 18 /min [facility] Body height 2022-12-05 14:50:00 188 cm [facility] Body weight 2022-12-05 14:50:00 98.294 kg [facility] BMI 2022-12-05 14:50:00 27.82 kg/m2 [facility] Systolic blood pressure 2022-11-14 01:41:47 150 mm[Hg] [facility] Diastolic blood pressure 2022-11-14 01:41:47 106 mm[Hg] [facility] Heart rate 2022-11-14 01:41:47 64 /min [facility] Body temperature 2022-11-14 01:41:47 37.28 Annabella [facility] Respiratory rate 2022-11-14 01:41:47 18 /min [facility] Oxygen saturation in Arterial blood by Pulse oximetry 2022-11-14 01:41:47 98 /min [facility] Body height 2022-11-13 21:48:00 188 cm [facility] Body weight 2022-11-13 21:48:00 97.523 kg [facility] BMI 2022-11-13 21:48:00 27.60 kg/m2 [facility] Systolic blood pressure 2022-11-06 15:55:00 120 mm[Hg] [facility] Diastolic blood pressure 2022-11-06 15:55:00 76 mm[Hg] [facility] Heart rate 2022-11-06 15:55:00 67 /min [facility] Body temperature 2022-11-06 15:55:00 36.5 Annabella [facility] Body height 2022-11-06 15:55:00 188 cm [facility] Body weight 2022-11-06 15:55:00 97.523 kg [facility] BMI 2022-11-06 15:55:00 27.60 kg/m2 [facility] Oxygen saturation in Arterial blood by Pulse oximetry 2022-11-06 15:55:00 100 /min [facility] Systolic blood pressure 2022-08-07 19:14:00 110 mm[Hg] [facility] Diastolic blood pressure 2022-08-07 19:14:00 71 mm[Hg] [facility] Heart rate 2022-08-07 19:14:00 77 /min [facility] Body temperature 2022-08-07 19:14:00 36.94 Annabella [facility] Body height 2022-08-07 19:14:00 188 cm [facility] Body weight 2022-08-07 19:14:00 97.523 kg [facility] BMI 2022-08-07 19:14:00 27.60 kg/m2 [facility] Oxygen saturation in Arterial blood by Pulse oximetry 2022-08-07 19:14:00 100 /min [facility] Systolic blood pressure 2021-01-07 18:03:00 159 mm[Hg] hysterically crying and moving [facility] Diastolic blood pressure 2021-01-07 18:03:00 128 mm[Hg] hysterically crying and moving [facility] Heart rate 2021-01-07 18:03:00 109 /min [facility] Body temperature 2021-01-07 18:03:00 37.72 Annabella [facility] Respiratory rate 2021-01-07 18:03:00 18 /min [facility] Body weight 2021-01-07 18:03:00 113.399 kg [facility] BMI 2021-01-07 18:03:00 32.10 kg/m2 [facility] Oxygen saturation in Arterial blood by Pulse oximetry 2021-01-07 18:03:00 100 /min [facility] Systolic blood pressure 2021-01-07 18:03:00 159 mm[Hg] hysterically crying and moving [facility] Diastolic blood pressure 2021-01-07 18:03:00 128 mm[Hg] hysterically crying and moving [facility] Heart rate 2021-01-07 18:03:00 109 /min [facility] Body temperature 2021-01-07 18:03:00 37.72 Annabella [facility] Respiratory rate 2021-01-07 18:03:00 18 /min [facility] Body weight 2021-01-07 18:03:00 113.399 kg [facility] BMI 2021-01-07 18:03:00 32.10 kg/m2 [facility] Oxygen saturation in Arterial blood by Pulse oximetry 2021-01-07 18:03:00 100 /min [facility] Systolic blood pressure 2020-12-28 19:00:00 129 mm[Hg] [facility] Diastolic blood pressure 2020-12-28 19:00:00 83 mm[Hg] [facility] Heart rate 2020-12-28 19:00:00 71 /min [facility] Respiratory rate 2020-12-28 19:00:00 16 /min [facility] Oxygen saturation in Arterial blood by Pulse oximetry 2020-12-28 19:00:00 100 /min [facility] Body temperature 2020-12-28 17:10:00 36.28 Annabella [facility] Body height 2020-12-28 17:10:00 188 cm [facility] Body weight 2020-12-28 17:10:00 113.399 kg [facility] BMI 2020-12-28 17:10:00 32.10 kg/m2 [facility] Systolic blood pressure 2020-12-28 19:00:00 129 mm[Hg] [facility] Diastolic blood pressure 2020-12-28 19:00:00 83 mm[Hg] [facility] Heart rate 2020-12-28 19:00:00 71 /min [facility] Respiratory rate 2020-12-28 19:00:00 16 /min [facility] Oxygen saturation in Arterial blood by Pulse oximetry 2020-12-28 19:00:00 100 /min [facility] Body temperature 2020-12-28 17:10:00 36.28 Annabella [facility] Body height 2020-12-28 17:10:00 188 cm [facility] Body weight 2020-12-28 17:10:00 113.399 kg [facility] BMI 2020-12-28 17:10:00 32.10 kg/m2 [facility] Systolic blood pressure 2020-12-10 20:25:00 123 mm[Hg] [facility] Diastolic blood pressure 2020-12-10 20:25:00 81 mm[Hg] [facility] Heart rate 2020-12-10 20:25:00 66 /min [facility] Respiratory rate 2020-12-10 20:25:00 14 /min [facility] Oxygen saturation in Arterial blood by Pulse oximetry 2020-12-10 20:25:00 99 /min [facility] Body temperature 2020-12-10 16:12:00 37.22 Annabella [facility] Body height 2020-12-10 15:41:00 188 cm [facility] Body weight 2020-12-10 15:41:00 99.474 kg [facility] BMI 2020-12-10 15:41:00 28.16 kg/m2 [facility] Systolic blood pressure 2020-12-10 20:25:00 123 mm[Hg] [facility] Diastolic blood pressure 2020-12-10 20:25:00 81 mm[Hg] [facility] Heart rate 2020-12-10 20:25:00 66 /min [facility] Respiratory rate 2020-12-10 20:25:00 14 /min [facility] Oxygen saturation in Arterial blood by Pulse oximetry 2020-12-10 20:25:00 99 /min [facility] Body temperature 2020-12-10 16:12:00 37.22 Annabella [facility] Body height 2020-12-10 15:41:00 188 cm [facility] Body weight 2020-12-10 15:41:00 99.474 kg [facility] BMI 2020-12-10 15:41:00 28.16 kg/m2 [facility] Systolic blood pressure 2020-11-21 13:01:00 159 mm[Hg] [facility] Diastolic blood pressure 2020-11-21 13:01:00 100 mm[Hg] [facility] Heart rate 2020-11-21 13:01:00 72 /min [facility] Body temperature 2020-11-21 13:01:00 36.61 Annabella [facility] Respiratory rate 2020-11-21 13:01:00 18 /min [facility] Body weight 2020-11-21 13:01:00 97.523 kg [facility] BMI 2020-11-21 13:01:00 27.60 kg/m2 [facility] Oxygen saturation in Arterial blood by Pulse oximetry 2020-11-21 13:01:00 100 /min [facility] Systolic blood pressure 2020-11-21 13:01:00 159 mm[Hg] [facility] Diastolic blood pressure 2020-11-21 13:01:00 100 mm[Hg] [facility] Heart rate 2020-11-21 13:01:00 72 /min [facility] Body temperature 2020-11-21 13:01:00 36.61 Annabella [facility] Respiratory rate 2020-11-21 13:01:00 18 /min [facility] Body weight 2020-11-21 13:01:00 97.523 kg [facility] BMI 2020-11-21 13:01:00 27.60 kg/m2 [facility] Oxygen saturation in Arterial blood by Pulse oximetry 2020-11-21 13:01:00 100 /min [facility] Procedures Procedure Date / Time Performed Performing Clinician Source XR RIBS 3 VW LEFT 2024-07-17 20:06:47 Vijay Berman [facility] LIPASE 2024-07-17 19:41:00 [facility] TROPONIN I 2024-07-17 19:41:00 [facility] COMP. METABOLIC PANEL ([id number]) 2024-07-17 19:41:00 Vijay Berman [facility] CBC WITH DIFF 2024-07-17 19:41:00 Vijay Berman [facility] URINALYSIS 2024-07-17 19:41:00 [facility] N-TERMINAL PRO-BNP 2024-07-17 19:41:00 Vijay Berman [facility] HIV 1/2 AG-AB WITH REFLEX 2024-07-17 19:41:00 Vijay Berman [facility] URINE DRUG (IMMUNOASSAY) - COMPREHENSIVE DRUG SCREEN W/O REFLEX 2024-07-17 19:41:00 Vijay Berman [facility] NAOMI,POST-VOID RES,US,NON-IMAGING 2024-03-17 16:52:00 Kaden Andrew [facility] POCT URINALYSIS AUTO 2024-03-17 00:00:00 Liliana Andrew [facility] POCT MOLECULAR FLU 2023-12-20 17:56:00 Unknown, Attend ing [facility] POCT SARS-COV-2 ANTIGEN (BINAX NOW) 2023-12-20 17:55:00 Kathy Lux [facility] POCT MOLECULAR STREP 2023-12-20 17:53:00 Unknown, Atte michoacano [facility] ASSIGNMENT OF BENEFITS 2023-08-22 15:32:30 Docto r Unassigned, [place] [facility] XR CHEST 2 VW 2023-08-12 22:55:39 Zohra Prater [facility] XR NECK SOFT TISSUE 2023-08-12 22:55:39 Adelia Prater [facility] ASSIGNMENT OF BENEFITS 2023-08-12 22:21:13 Docto r Unassigned, [place] [facility] CONSENT/REFUSAL FOR DIAGNOSIS AND TREATMENT 2023-08-12 21:44:30 Doctor Unassigned, [place] [facility] XR CERVICAL SPINE 2 VW 2023-07-05 15:20:41 Jessy son, Eddie Hernández [facility] MR SHOULDER LEFT WO CONTRAST 2023-06-04 17:59:00 Dharmesh Higgins [facility] CONSENT/REFUSAL FOR DIAGNOSIS AND TREATMENT 2023-05-25 19:24:17 Doctor Unassigned, [place] [facility] REFERRAL- REQUEST/RESPONSE 2023-05-16 06:01:00 Doctor Unassigned, [place] [facility] XR SHOULDER 2+ VW LEFT 2023-04-30 16:27:10 Kayla Begum [facility] VACCINATIONS - CONSENTS, ELIGIBILITY, HISTORY 2022-12-20 05:01:00 Doctor Unassigned, [place] [facility] COMP. METABOLIC PANEL ([id number]) 2022-12-11 23:36:00 Ivy Thakkar [facility] CBC WITH DIFF 2022-12-11 23:36:00 Ivy Thakkar [facility] URINALYSIS 2022-12-11 23:36:00 [facility] URINE DRUG (IMMUNOASSAY) - COMPREHENSIVE DRUG SCREEN W/O REFLEX 2022-12-11 23:36:00 Ivy Thakkar [facility] US SCROTUM AND CONTENTS 2022-12-11 23:27:01 Ivy Thakkar [facility] CONSENT/REFUSAL FOR DIAGNOSIS AND TREATMENT 2022-12-11 21:59:16 Doctor Unassigned, [place] [facility] ASSIGNMENT OF BENEFITS 2022-12-08 21:05:34 Docto r Unassigned, [place] [facility] LIPASE 2022-12-08 20:59:00 Amarilis Banuelos [facility] MAGNESIUM 2022-12-08 20:59:00 Amarilis Banuelos [facility] TROPONIN I 2022-12-08 20:59:00 Amarilis Banuelos [facility] THYROID STIMULATING HORMONE 2022-12-08 20:59:00 Amarilis Banuelos [facility] COMP. METABOLIC PANEL ([id number]) 2022-12-08 20:59:00 Amarilis Banuelos [facility] CBC WITH DIFF 2022-12-08 20:59:00 Amarilis Banuelos [facility] D-DIMER 2022-12-08 20:59:00 Amarilis Banuelos [facility] URINALYSIS 2022-12-08 20:59:00 Amarilis Banuelos [facility] URINE DRUG (IMMUNOASSAY) - COMPREHENSIVE DRUG SCREEN W/O REFLEX 2022-12-08 20:59:00 Amarilis Banuelos [facility] CONSENT/REFUSAL FOR DIAGNOSIS AND TREATMENT 2022-12-08 20:14:46 Doctor Unassigned, [place] [facility] CT ABDOMEN PELVIS WO CONTRAST 2022-12-05 20:49:00 Kaden Andrew [facility] ASSIGNMENT OF BENEFITS 2022-12-05 20:38:36 Docto r Unassigned, [place] [facility] EXTERNAL PROVIDER RECORDS 2022-11-27 05:01:00 Doctor Unassigned, [place] [facility] US TESTICULAR TORSION 2022-11-13 23:53:44 Gaurav Esparza [facility] ASSIGNMENT OF BENEFITS 2022-11-13 23:53:42 Docto r Unassigned, [place] [facility] BASIC METABOLIC PANEL (NA, K, CL, CO2, GLUCOSE, BUN, CREATININE, CA) 2022-11-13 23:02:00 Gaurav Esparza [facility] CBC WITH DIFF 2022-11-13 23:02:00 Gaurav Esparza [facility] URINALYSIS 2022-11-13 23:02:00 Gaurav Esparza [facility] NOTICE OF PRIVACY PRACTICES 2022-11-13 21:34:09 Doctor Unassigned, [place] [facility] CONSENT/REFUSAL FOR DIAGNOSIS AND TREATMENT 2022-11-13 21:33:31 Doctor Unassigned, [place] [facility] URINE CULTURE 2022-11-06 16:40:00 Alena Min [facility] POCT URINALYSIS 2022-11-06 16:30:00 Alena Min [facility] AUTHORIZATION TO RELEASE PHI TO [facility] 2022-11-06 05:01:00 Doctor Unassigned, [place] [facility] CONSENT/REFUSAL FOR DIAGNOSIS AND TREATMENT 2021-01-07 17:59:07 Doctor Unassigned, [place] [facility] CT ABDOMEN PELVIS W CONTRAST 2020-12-28 18:45:34 Alvarez Archer [facility] LIPASE 2020-12-28 17:39:00 Alvarez Archer [facility] COMP. METABOLIC PANEL ([id number]) 2020-12-28 17:39:00 Alvarez Archer [facility] CBC WITH DIFF 2020-12-28 17:39:00 Alvarez Archer [facility] URINALYSIS 2020-12-28 17:39:00 Alvarez Archer [facility] CONSENT/REFUSAL FOR DIAGNOSIS AND TREATMENT 2020-12-28 16:58:57 Doctor Unassigned, [place] [facility] PROTHROMBIN TIME / INR 2020-12-10 15:10:00 Rashawn Berman [facility] ACTIVATED PARTIAL THRMPLAS JENNIFER 2020-12-10 15:10:00 Vijay Berman [facility] URINE DRUG (IMMUNOASSAY) - COMPREHENSIVE DRUG SCREEN 2020-12-10 13:45:00 Vijay Berman [facility] URINALYSIS 2020-12-10 13:45:00 Vijay Berman [facility] COVID-19 (ID NOW RAPID TESTING) 2020-12-10 12:46:00 Vijya Berman [facility] SALICYLATE 2020-12-10 12:18:00 Vijay Berman [facility] LACTIC ACID WHOLE BLOOD 2020-12-10 12:15:00 Do gladys Berman [facility] LIPASE 2020-12-10 12:13:00 Vijay Berman [facility] MAGNESIUM 2020-12-10 12:13:00 [facility] HEPATIC FUNCTION PANEL ([id number]) (ALB,T.PRO,BILI T,BU/BC,ALT,AST,ALK PHOS) 2020-12-10 12:13:00 Vijay Berman [facility] BASIC METABOLIC PANEL (NA, K, CL, CO2, GLUCOSE, BUN, CREATININE, CA) 2020-12-10 12:13:00 Vijay Berman [facility] ETHANOL 2020-12-10 12:13:00 Vijay Berman [facility] CBC WITH DIFF 2020-12-10 12:13:00 Vijay Berman [facility] HB ECG ROUTINE & RHYTHM STRIP 2020-12-10 12:01:59 Vijay Berman [facility] CONSENT/REFUSAL FOR DIAGNOSIS AND TREATMENT 2020-12-10 11:46:13 Doctor Unassigned, [place] [facility] NOTICE OF PRIVACY PRACTICES 2020-11-21 12:58:09 Doctor Unassigned, [place] [facility] CONSENT/REFUSAL FOR DIAGNOSIS AND TREATMENT 2020-11-21 12:57:43 Doctor Unassigned, [place] [facility] Encounters Start Date/Time End Date/Time Encounter Type Admission Type Attending Clinicians Care Facility Care Department Encounter ID Source 2024-08-03 00:00:00 2024-08-07 17:08:57 Refill Alena Min [facility] 1.2.840.114 350.1.13.10 4.2.7.2.686 [id number] [facility] 2024-08-05 16:30:00 2024-08-05 16:30:00 Outpatient R ALENA MIN [facility] [id number] [facility] 2024-07-17 13:18:00 2024-07-17 16:08:00 Emergency X VIJAY BERMAN DONNELL IAAYESHA ERT [id number] [facility] 2024-07-17 13:18:00 2024-07-17 16:08:00 Emergency Vijay Berman [facility] 1.2840.114 350.1.13.10 4.2.7.2.686 [id number] [facility] 2024-07-15 08:00:00 2024-07-15 08:00:00 Outpatient ALENA PENNINGTON [facility] [id number] [facility] 2024-05-05 16:00:00 2024-05-05 16:00:00 Outpatient R MAGALI FERRER LUCAS [facility] [id number] [facility] 2024-04-08 00:00:00 2024-04-08 13:53:11 Letter (Out) Diseases-[place] mb, Infectious Diseases-[facility], Infectious [facility] 1.840.114 350.1.13.10 4.2.7.2.686 [id number] [facility] 2024-03-27 14:30:00 2024-03-27 14:30:00 Outpatient R LAKEISHA SHAUNNA [facility] [id number] [facility] 2024-03-17 11:30:00 2024-03-17 13:01:00 Outpatient R KADEN ANDREW [facility] [id number] [facility] 2024-03-17 11:30:00 2024-03-17 13:01:00 [facility] 1.840.114 350.1.13.10 4.2.7.2.686 [id number] [facility] 2024-03-09 00:00:00 2024-03-09 13:27:08 Letter (Out) [facility] 1.2840.114 350.1.13.10 4.2.7.2.686 [id number] [facility] 2024-03-06 17:29:55 2024-03-06 17:29:55 Outpatient [facility] [id number] Marty Larsen 2024-03-04 00:00:00 2024-03-05 18:04:57 Telephone Shaunna Donato [facility] 1..840.114 350.1.13.10 4.2.7.2.686 [id number] [facility] 2024-03-02 00:00:00 2024-03-03 09:49:39 Refill Kayla Grimes [facility] 1..840.114 350.1.13.10 4.2.7.2.686 [id number] [facility] 2024-02-06 11:00:00 2024-02-06 11:00:00 Outpatient R KAYLA GRIMES [facility] [id number] [facility] 2024-01-23 13:00:00 2024-01-23 13:00:00 Outpatient R KAYLA GRIMES [facility] [id number] [facility] 2024-01-22 17:25:37 2024-01-22 17:25:37 Outpatient [facility] [id number] Marty Larsen 2024-01-21 14:20:00 2024-01-21 14:20:00 Outpatient R KAYLA GRIMES [facility] [id number] [facility] 2023-12-25 00:00:00 2023-12-25 12:40:04 Refill Kathy Lux [facility] 1..840.114 350.1.13.10 4.2.7.2.686 [id number] [facility] 2023-12-24 00:00:00 2023-12-25 09:44:00 Telephone Kayla Grimes [facility] 1..840.114 350.1.13.10 4.2.7.2.686 [id number] [facility] 2023-12-20 11:40:00 2023-12-20 13:33:48 Outpatient R KATHY LUX [facility] [id number] [facility] 2023-12-20 11:40:00 2023-12-20 12:00:00 Urgent Care Kathy Lux Jatin, Attending [facility] 1..840.114 350.1.13.10 4.2.7.2.686 [id number] [facility] 2023-12-12 13:40:00 2023-12-12 13:40:00 Outpatient R KAYLA GRIMES [facility] [id number] [facility] 2023-12-05 00:00:00 2023-12-05 13:39:41 Telephone Kayla Grimes [facility] 1..840.114 350.1.13.10 4.2.7.2.686 [id number] [facility] 2023-11-01 15:15:00 2023-11-01 15:15:00 Outpatient R EDDIE DAVIS [facility] [id number] [facility] 2023-10-30 11:00:00 2023-10-30 11:00:00 Outpatient R KAYLA GRIMES [facility] [id number] [facility] 2023-10-30 00:00:00 2023-10-30 00:00:00 Telephone Nicole Wooten 1..840.114 350.1.13.10 4.2.7.2.686 [id number] [facility] 2023-10-23 00:00:00 2023-10-23 00:00:00 Pre Visit Outreach Alexandrea BarberJosue GRICELDA GIMENEZ 1.2840.114 350.1.13.10 4.2.7.2.686 [id number] [facility] 2023-10-22 16:00:00 2023-10-22 16:00:00 Outpatient R SUSAN EDDIE [facility] [id number] [facility] 2023-10-09 00:00:00 2023-10-09 00:00:00 Kayla Aguilar [facility] 1..840.114 350.1.13.10 4.2.7.2.686 [id number] [facility] 2023-09-16 00:00:00 2023-09-16 00:00:00 Telephone Nicole Wooten MADISONHelena GIMENEZ 1.2840.114 350.1.13.10 4.2.7.2.686 [id number] [facility] 2023-09-10 11:00:00 2023-09-10 11:00:00 Outpatient R [facility] [id number] [facility] 2023-09-10 00:00:00 2023-09-10 00:00:00 Case Management Sebastian Rea [facility] 1.840.114 350.1.13.10 4.2.7.2.686 [id number] [facility] 2023-09-05 00:00:00 2023-09-05 00:00:00 Telephone Nicole Wooten MADISONHelena GIMENEZ 1.2840.114 350.1.13.10 4.2.7.2.686 [id number] [facility] 2023-09-03 15:15:00 2023-09-03 15:15:00 Outpatient R [facility] [id number] [facility] 2023-08-28 08:45:00 2023-08-28 08:45:00 Outpatient LORENA TERAN CRAIG [facility] [id number] [facility] 2023-08-28 00:00:00 2023-08-28 00:00:00 Telephone Nicole Wooten [place] 1.2840.114 350.1.13.10 4.2.7.2.686 [id number] [facility] 2023-08-26 00:00:00 2023-08-26 00:00:00 Telephone Nicole WootenY [place] 1.2840.114 350.1.13.10 4.2.7.2.686 [id number] [facility] 2023-08-23 00:00:00 2023-08-23 00:00:00 Telephone Nicole WootenY [place] 1.2840.114 350.1.13.10 4.2.7.2.686 [id number] [facility] 2023-08-22 08:45:00 2023-08-22 09:30:00 Ancillary Visit Sebastian Rea Jeremy Samuel [facility] 1.840.114 350.1.13.10 4.2.7.2.686 [id number] [facility] 2023-08-22 00:00:00 2023-08-22 00:00:00 Orders Only Doctor Unassigned, [place] [facility] 1.2840.114 350.1.13.10 4.2.7.2.686 [id number] [facility] 2023-08-16 09:30:00 2023-08-16 10:15:00 Ancillary Visit Sebastian Rea Craig L [facility] 1.2.840.114 350.1.13.10 4.2.7.2.686 [id number] [facility] 2023-08-12 15:58:00 2023-08-12 18:23:00 Emergency X ZOHRA PRATER [facility] ERT [id number] [facility] 2023-08-12 15:58:00 2023-08-12 18:23:00 Emergency Zohra Prater [facility] 1.2.840.114 350.1.13.10 4.2.7.2.686 [id number] [facility] 2023-08-09 08:00:00 2023-08-09 09:22:33 Ancillary Visit Val Bell Craig L [facility] 1.2.840.114 350.1.13.10 4.2.7.2.686 [id number] [facility] 2023-08-09 00:00:00 2023-08-09 00:00:00 Telephone Nicole Wooten 1.2.840.114 350.1.13.10 4.2.7.2.686 [id number] [facility] 2023-08-06 11:19:47 2023-08-06 11:19:47 Outpatient [facility] [id number] Martypam Larsen 2023-08-06 11:00:00 2023-08-06 11:00:00 Outpatient R KAYLA GRIMES [facility] [id number] [facility] 2023-08-02 08:45:00 2023-08-02 08:45:00 Outpatient R [facility] [id number] [facility] 2023-07-26 00:00:00 2023-07-26 00:00:00 Telephone Nicole Wooten [place] 1.840.114 350.1.13.10 4.2.7.2.686 [id number] [facility] 2023-07-25 13:40:52 2023-07-25 13:40:52 Outpatient [facility] [id number] Marty Larsen 2023-07-19 09:30:00 2023-07-19 09:30:00 Outpatient R EDDIE DAVIS [facility] [id number] [facility] 2023-07-12 10:23:23 2023-07-12 10:23:23 Outpatient [facility] [id number] Marty Larsen 2023-07-11 00:00:00 2023-07-11 00:00:00 Telephone Nicole Wooten 1.840.114 350.1.13.10 4.2.7.2.686 [id number] [facility] 2023-07-05 09:14:31 2023-07-05 23:59:00 Outpatient R EDDIE DAVIS [facility] [id number] [facility] 2023-07-05 09:14:31 2023-07-05 23:59:00 Hospital Encounter Eddie Davis [facility] .84.114 350.1.13.10 4.2.7.2.686 [id number] [facility] 2023-07-05 09:30:00 2023-07-05 09:50:18 Office Visit Eddie Davis [facility] .840.114 350.1.13.10 4.2.7.2.686 [id number] [facility] 2023-06-12 00:00:00 2023-06-12 00:00:00 Telephone Eddie Davis [facility] 1.2840.114 350.1.13.10 4.2.7.2.686 [id number] [facility] 2023-06-07 10:58:30 2023-06-07 10:58:30 Outpatient [facility] [id number] Marty Larsen 2023-06-06 14:15:00 2023-06-06 14:33:21 Outpatient R LORENA SAAVEDRA CRAIG [facility] [id number] [facility] 2023-06-06 14:15:00 2023-06-06 14:33:21 Office Visit Lorena Saavedra [facility] 1.2840.114 350.1.13.10 4.2.7.2.686 [id number] [facility] 2023-06-05 00:00:00 2023-06-05 00:00:00 Patient Secure Msg Doctor Unassigned, [place] [facility] 1.2840.114 350.1.13.10 4.2.7.2.686 [id number] [facility] 2023-06-04 10:58:16 2023-06-04 23:59:00 Outpatient R DHARMESH HIGGINS [facility] [id number] [facility] 2023-06-04 10:58:16 2023-06-04 23:59:00 Hospital Encounter Dharmesh Higgins S [facility] 1.20.114 350.1.13.10 4.2.7.2.686 [id number] [facility] 2023-05-27 00:00:00 2023-05-27 00:00:00 Telephone Nicole Wooten 1.2840.114 350.1.13.10 4.2.7.2.686 [id number] [facility] 2023-05-26 09:40:00 2023-05-26 09:40:00 Outpatient R [facility] [id number] [facility] 2023-05-25 13:37:00 2023-05-25 14:30:00 Emergency X GORDON NORWOOD [facility] ERT [id number] [facility] 2023-05-25 13:37:00 2023-05-25 14:30:00 Emergency Gordon Norwood E [facility] 1..840.114 350.1.13.10 4.2.7.2.686 [id number] [facility] 2023-05-24 15:40:00 2023-05-24 15:40:00 Outpatient R KAYLA GRIMES [facility] [id number] [facility] 2023-05-22 00:00:00 2023-05-22 00:00:00 Telephone Bebo Dharmesh [facility] 1.2.840.114 350.1.13.10 4.2.7.2.686 [id number] [facility] 2023-05-22 00:00:00 2023-05-22 00:00:00 Patient Secure Msg Doctor Unassigned, [place] [facility] 1.2.840.114 350.1.13.10 4.2.7.2.686 [id number] [facility] 2023-05-21 00:00:00 2023-05-21 00:00:00 [facility] 1..840.114 350.1.13.10 4.2.7.2.686 [id number] [facility] 2023-05-17 09:07:43 2023-05-17 09:07:43 Outpatient [facility] [id number] Matry Larsen 2023-05-17 00:00:00 2023-05-17 00:00:00 Telephone [place] 1.20.114 350.1.13.10 4.2.7.2.686 [id number] [facility] 2023-05-16 09:30:00 2023-05-16 10:00:00 [facility] 1..114 350.1.13.10 4.2.7.2.686 [id number] 198 [id number] [facility] 2023-05-16 09:30:00 2023-05-16 09:46:59 Outpatient DHARMESH MCDONALD [facility] [id number] [facility] 2023-05-16 00:00:00 2023-05-16 00:00:00 Orders Only Doctor Unassigned, [place] [facility] 1..114 350.1.13.10 4.2.7.2.686 [id number] [facility] 2023-05-10 11:00:00 2023-05-10 11:00:00 Outpatient DHARMESH MCDONALD [facility] [id number] [facility] 2023-05-03 11:23:35 2023-05-03 11:23:35 Outpatient [facility] [id number] Marty Larsen 2023-05-01 00:00:00 2023-05-01 00:00:00 Telephone Nicole [place] 1.20.114 350.1.13.10 4.2.7.2.686 [id number] [facility] 2023-05-01 00:00:00 2023-05-01 00:00:00 Telephone Nicole [place] 1.2840.114 350.1.13.10 4.2.7.2.686 [id number] [id number] [facility] 2023-05-01 00:00:00 2023-05-01 00:00:00 Telephone Je Nicole GIMENEZ 1.2.840.114 350.1.13.10 4.2.7.2.686 [id number] [facility] 2023-04-30 11:15:20 2023-04-30 23:59:00 Outpatient R KAYLA GRIMES [facility] [id number] [facility] 2023-04-30 11:15:20 2023-04-30 23:59:00 Hospital Encounter Sydney Kayla Geeta [facility] 1.2.840.114 350.1.13.10 4.2.7.2.686 [id number] [facility] 2023-04-30 10:20:00 2023-04-30 11:39:43 Office Visit Sydney Kayla Geeta [facility] 1.2.840.114 350.1.13.10 4.2.7.2.686 [id number] [facility] 2023-04-30 11:14:49 2023-04-30 11:14:49 Hospital Encounter Sydney Kayla Geeta [facility] 1.2.840.114 350.1.13.10 4.2.7.2.686 [id number] [facility] 2023-04-30 08:58:42 2023-04-30 08:58:42 Outpatient [facility] [id number] Marty Larsen 2023-04-28 17:00:00 2023-04-28 17:00:00 Outpatient R [facility] [id number] [facility] 2023-04-25 14:30:00 2023-04-25 14:30:00 Outpatient R [facility] [id number] [facility] 2023-04-24 00:00:00 2023-04-24 00:00:00 Telephone Tylor Newman [facility] 1.0.114 350.1.13.10 4.2.7.2.686 [id number] [facility] 2023-04-24 00:00:00 2023-04-24 00:00:00 Telephone Nicole Wooten 1.0.114 350.1.13.10 4.2.7.2.686 [id number] [id number] [facility] 2023-04-23 15:40:00 2023-04-23 16:11:36 Outpatient R KAYLA GRIMES [facility] [id number] [facility] 2023-04-23 15:40:00 2023-04-23 16:11:36 Office Visit Kayla Grimes [facility] 1..114 350.1.13.10 4.2.7.2.686 [id number] 044 [id number] [facility] 2023-04-17 00:00:00 2023-04-17 00:00:00 Telephone Nicole Wooten MADISONHelena GIMENEZ 1.0.114 350.1.13.10 4.2.7.2.686 [id number] [id number] [facility] 2023-04-16 13:21:44 2023-04-16 13:21:44 Outpatient [facility] [id number] Marty Larsen 2023-04-16 00:00:00 2023-04-16 00:00:00 Refill Kayla Grimes [facility] 1..114 350.1.13.10 4.2.7.2.686 [id number] 044 [id number] [facility] 2023-04-16 00:00:00 2023-04-16 00:00:00 RefKayla Powers [facility] 1.84.114 350.1.13.10 4.2.7.2.686 [id number] 044 [id number] [facility] 2023-04-16 00:00:00 2023-04-16 00:00:00 Telephone Je Nicole Kvng PROCTOR GRICELDA GIMENEZ 1..114 350.1.13.10 4.2.7.2.686 [id number] [facility] 2023-04-12 11:00:00 2023-04-12 11:00:00 Outpatient R KAYLA GRIMES [facility] [id number] [facility] 2023-04-10 13:40:00 2023-04-10 13:40:00 Outpatient R KAYLA GRIMES [facility] [id number] [facility] 2023-04-04 08:41:26 2023-04-04 08:41:26 Outpatient [facility] [id number] Marty Larsen 2023-03-13 08:40:00 2023-03-13 08:40:00 Outpatient R KAYLA GRIMES [facility] [id number] [facility] 2023-03-11 00:00:00 2023-03-11 00:00:00 Patient Secure Msg Kayla Grimes [facility] 1.84.114 350.1.13.10 4.2.7.2.686 [id number] [facility] 2023-03-11 00:00:00 2023-03-11 00:00:00 Tylor Camacho [facility] 1..114 350.1.13.10 4.2.7.2.686 [id number] [facility] 2023-03-07 08:47:58 2023-03-07 08:47:58 Outpatient [facility] [id number] Marty Larsen 2023-01-03 14:00:00 2023-01-03 14:52:06 Outpatient R [facility] [id number] [facility] 2023-01-03 14:00:00 2023-01-03 14:52:06 Office Visit Tylor Newman [facility] 1..840.114 350.1.13.10 4.2.7.2.686 [id number] [facility] 2023-01-02 13:00:00 2023-01-02 13:00:00 [facility] [id number] 2023-01-02 10:30:00 2023-01-02 10:30:00 Outpatient R LORRIE [facility] [id number] [facility] 2022-12-31 00:00:00 2022-12-31 00:00:00 Refill Mechelle [facility] 1.2.840.114 350.1.13.10 4.2.7.2.686 [id number] 044 [id number] [facility] 2022-12-30 00:00:00 2022-12-30 00:00:00 Refill Mechelle [facility] 1.2.840.114 350.1.13.10 4.2.7.2.686 [id number] 044 [id number] [facility] 2022-12-28 12:45:00 2022-12-28 12:45:00 Outpatient R SULMA PEREZ [facility] [id number] [facility] 2022-12-26 11:20:00 2022-12-26 11:20:00 Outpatient R KALYA GRIMES [facility] [id number] [facility] 2022-12-20 00:00:00 2022-12-20 00:00:00 Orders Only Doctor Unassigned, [place] [facility] 1.2840.114 350.1.13.10 4.2.7.2.686 [id number] [id number] [facility] 2022-12-17 00:00:00 2022-12-17 00:00:00 Patient Secure Msg Kayla Grimes [facility] 1..840.114 350.1.13.10 4.2.7.2.686 [id number] 044 [id number] [facility] 2022-12-17 00:00:00 2022-12-17 00:00:00 Patient Outreach Sheila Magallanes [facility] 1..840.114 350.1.13.10 4.2.7.2.686 [id number] 044 [id number] [facility] 2022-12-13 00:00:00 2022-12-13 00:00:00 Telephone Kayla Grimes [facility] 1.2840.114 350.1.13.10 4.2.7.2.686 [id number] 044 [id number] [facility] 2022-12-12 15:20:00 2022-12-12 16:04:33 Outpatient R KAYLA GRIMES [facility] [id number] [facility] 2022-12-12 15:20:00 2022-12-12 16:04:33 Office Visit Kayla Grimes [facility] 1.2.840.114 350.1.13.10 4.2.7.2.686 [id number] 044 [id number] [facility] 2022-12-11 17:05:00 2022-12-11 20:26:00 Emergency X IVY THAKKAR [facility] ERT [id number] [facility] 2022-12-11 17:05:00 2022-12-11 20:26:00 Emergency Ivy Thakkar [facility] 1.840.114 350.1.13.10 4.2.7.2.686 [id number] [facility] 2022-12-11 09:30:00 2022-12-11 09:30:00 Outpatient R LORRIE [facility] [id number] [facility] 2022-12-08 15:30:00 2022-12-08 18:50:00 Emergency X ISRAELISHAAN AMARILIS [facility] ERT [id number] [facility] 2022-12-08 15:30:00 2022-12-08 18:50:00 Emergency Amarilis Banuelos [facility] 1.0.114 350.1.13.10 4.2.7.2.686 [id number] 084 [id number] [facility] 2022-12-06 00:00:00 2022-12-06 00:00:00 Patient Secure BeatakvngAlena [facility] 1.840.114 350.1.13.10 4.2.7.2.686 [id number] 044 [id number] [facility] 2022-12-06 00:00:00 2022-12-06 00:00:00 Telephone Kaden Andrew [facility] 1.84.114 350.1.13.10 4.2.7.2.686 [id number] [facility] 2022-12-05 15:30:00 2022-12-05 23:59:00 Hospital Encounter Kaden Andrew [facility] 1.2.840.114 350.1.13.10 4.2.7.2.686 [id number] [facility] 2022-12-05 13:30:00 2022-12-05 15:18:12 Office Visit Lorrie [facility] 1.2.840.114 350.1.13.10 4.2.7.2.686 [id number] [facility] 2022-12-05 10:20:00 2022-12-05 10:20:00 Office Visit Kayla Grimes [facility] 1.2840.114 350.1.13.10 4.2.7.2.686 [id number] 044 [id number] [facility] 2022-12-05 10:20:00 2022-12-05 10:16:52 Outpatient R KAYLA GRIMES [facility] [id number] [facility] 2022-12-05 08:45:00 2022-12-05 08:45:00 Outpatient R PRIYANKA RIVERA [facility] [id number] [facility] 2022-12-05 00:00:00 2022-12-05 00:00:00 Orders Only Doctor Unassigned, [place] [facility] 1.2840.114 350.1.13.10 4.2.7.2.686 [id number] [id number] [facility] 2022-12-04 00:00:00 2022-12-04 00:00:00 Telephone Jena Veloz 1.2840.114 350.1.13.10 4.2.7.2.686 [id number] 086 [id number] [facility] 2022-11-27 15:30:00 2022-11-27 16:29:39 Outpatient R KADEN ANDREW [facility] [id number] [facility] 2022-11-27 00:00:00 2022-11-27 00:00:00 Orders Only Doctor Unassigned, [place] [facility] 1.20.114 350.1.13.10 4.2.7.2.686 [id number] [id number] [facility] 2022-11-21 00:00:00 2022-11-21 00:00:00 Patient Secure Msg Doctor Unassigned, [place] [facility] 1..114 350.1.13.10 4.2.7.2.686 [id number] [facility] 2022-11-20 08:00:00 2022-11-20 08:00:00 Outpatient R BERNARDO DUGGAN [facility] [id number] [facility] 2022-11-14 00:00:00 2022-11-14 00:00:00 Telephone Alena Min [facility] 1.84.114 350.1.13.10 4.2.7.2.686 [id number] 044 [id number] [facility] 2022-11-13 16:53:00 2022-11-13 20:55:00 Emergency X GAURAV ESPARZA [facility] ERT [id number] [facility] 2022-11-13 16:53:00 2022-11-13 20:55:00 Emergency Gaurav Esparza [facility] 1..114 350.1.13.10 4.2.7.2.686 [id number] [facility] 2022-11-13 08:00:00 2022-11-13 08:15:00 Family Services Specialist Visit Lab, Ash - Kiet Min [facility] 1.2.840.114 350.1.13.10 4.2.7.2.686 [id number] [facility] 2022-11-13 08:00:00 2022-11-13 08:00:00 Outpatient R ALENA MIN [facility] [id number] [facility] 2022-11-13 00:00:00 2022-11-13 00:00:00 Telephone [facility] 1.114 350.1.13.10 4.2.7.2.686 [id number] 044 [id number] [facility] 2022-11-12 12:00:00 2022-11-12 12:00:00 Outpatient R [facility] [id number] [facility] 2022-11-12 00:00:00 2022-11-12 00:00:00 Telephone Alena Min [facility] 1.114 350.1.13.10 4.2.7.2.686 [id number] 044 [id number] [facility] 2022-11-12 00:00:00 2022-11-12 00:00:00 Telephone [facility] 1.114 350.1.13.10 4.2.7.2.686 [id number] 044 [id number] [facility] 2022-11-12 00:00:00 2022-11-12 00:00:00 Telephone [facility]ena Min [facility] 1.114 350.1.13.10 4.2.7.2.686 [id number] 044 [id number] [facility] 2022-11-09 00:00:00 2022-11-09 00:00:00 Telephone Alena Min [facility] 1.2.840.114 350.1.13.10 4.2.7.2.686 [id number] 044 [id number] [facility] 2022-11-07 00:00:00 2022-11-07 00:00:00 Telephone Alena Min [facility] 1.84114 350.1.13.10 4.2.7.2.686 [id number] 044 [id number] [facility] 2022-11-06 11:00:00 2022-11-06 12:34:42 Outpatient R ALENA MIN [facility] [id number] [facility] 2022-11-06 11:00:00 2022-11-06 12:34:42 [facility] 1.84114 350.1.13.10 4.2.7.2.686 [id number] 044 [id number] [facility] 2022-11-06 00:00:00 2022-11-06 00:00:00 Orders Only Doctor Unassigned, [place] [facility] 1.114 350.1.13.10 4.2.7.2.686 [id number] [facility] 2022-11-02 15:30:00 2022-11-02 15:30:00 Outpatient R ALENA MIN [facility] [id number] [facility] 2022-10-22 00:00:00 2022-10-22 00:00:00 [facility] 1.84114 350.1.13.10 4.2.7.2.686 [id number] [facility] 2022-08-21 09:30:00 2022-08-21 09:30:00 Outpatient R ALENA MIN [facility] [id number] [facility] 2022-08-07 13:00:00 2022-08-07 13:48:52 Outpatient R ALENA MIN [facility] [id number] [facility] 2022-08-07 13:00:00 2022-08-07 13:48:52 Office Visit Alena Min [facility] 1.2.840.114 350.1.13.10 4.2.7.2.686 [id number] [id number] [facility] 2022-08-07 00:00:00 2022-08-07 00:00:00 Telephone Alean Min [facility] 1.2.840.114 350.1.13.10 4.2.7.2.686 [id number] 044 [id number] [facility] 2021-01-07 13:07:00 2021-01-07 13:25:00 Emergency Thi Trent [facility] 1.2.840.114 350.1.13.10 4.2.7.2.686 [id number] [id number] 2021-01-07 13:07:00 2021-01-07 13:25:00 Emergency Thi Trent Uzma [facility] 1.2.840.114 350.1.13.10 4.2.7.2.686 [id number] [id number] [facility] 2021-01-07 12:59:00 2021-01-07 12:59:00 Emergency X [facility] ERT [id number] [facility] 2021-01-07 00:00:00 2021-01-07 00:00:00 Orders Only Doctor Unassigned, [place] [facility] 1.2.840.114 350.1.13.10 4.2.7.2.686 [id number] [id number] 2021-01-07 00:00:00 2021-01-07 00:00:00 Orders Only Doctor Unassigned, [place] [facility] 1.2.840.114 350.1.13.10 4.2.7.2.686 [id number] [facility] 2020-12-28 12:12:00 2020-12-28 14:45:00 Emergency Alvarez [facility] 1.2.840.114 350.1.13.10 4.2.7.2.686 [id number] [id number] 2020-12-28 12:12:00 2020-12-28 14:45:00 Emergency Alvarez [facility] 1.2.840.114 350.1.13.10 4.2.7.2.686 [id number] 084 [id number] [facility] 2020-12-28 11:59:00 2020-12-28 11:59:00 Emergency X [facility] ERT [id number] [facility] 2020-12-10 06:50:00 2020-12-10 15:30:00 Emergency Rashawn Bermanshayy Amadorvictorino [facility] 1.2.840.114 350.1.13.10 4.2.7.2.686 [id number] 2020-12-10 06:50:00 2020-12-10 15:30:00 Emergency Rashawn Bermanshayy Dexter [facility] 1.2.840.114 350.1.13.10 4.2.7.2.686 [id number] [facility] 2020-12-10 06:47:00 2020-12-10 06:47:00 Emergency X [facility] ERT [id number] [facility] 2020-12-10 00:00:00 2020-12-10 00:00:00 Orders Only Doctor Unassigned, [place] [facility] 1.2.840.114 350.1.13.10 4.2.7.2.686 [id number] 2020-12-10 00:00:00 2020-12-10 00:00:00 Orders Only Doctor Unassigned, [place] [facility] 1.2.840.114 350.1.13.10 4.2.7.2.686 [id number] [facility] 2020-11-21 08:03:00 2020-11-21 08:39:00 Emergency Daljit Velasco [facility] 1.2.840.114 350.1.13.10 4.2.7.2.686 [id number] 084 [id number] 2020-11-21 08:03:00 2020-11-21 08:39:00 Emergency Daljit Velasco [facility] 1.2.840.114 350.1.13.10 4.2.7.2.686 [id number] [id number] [facility] 2020-11-21 08:03:00 2020-11-21 08:03:00 Emergency X DALJIT VELASCO [facility] ERT [id number] [facility] Results Test Description Test Time Test Comments Results Result Co mments Source [facility] vw [id number] 20:59:45EXAM: XR LEFT RIB 7 VIEWS WITH PA CHEST DATE: 07/17/2024 1:45 PM INDICATION: Left chest pain COMPARISON: Chest radiograph 12/08/2022 TECHNIQUE: PA chest; frontal and oblique views of the bilateral ribs FINDINGS: ?No acute fracture or malalignment is identified. The visualized lungs are clear without pneumothorax.[facility]MINAL [id number] 20:49:28* Test Item Value Reference Range Interpretation Comme nts NT-proBNP (test code = 95118-6) <=125 Lab Interpretation (test cod e = 61226-8) Normal [facility] [id number] 20:31:55* Test Item Value Reference Range Interpretation Comme nts TROPONIN I (test code = 5876131774) 0.004 ng/mL <=0.034 DESIREE (test code = [...] of biotin. Lab Interpretation (test code = 39990-0) Normal [facility]. METABOLIC PANEL (39754)2024-07-17 20:18:12* Test Item Value Reference Range Interpretation Comme nts NA (test code = 2360864936) 141 mmol/L 135-145 K (test code = 8383507037) 3.8 mmol/L 3.5-5.0 CL (test code = 9909026594) 107 mmol/L 98-108 CO2 TOTAL (test code = 9191594450) 26 mmol/L 23-31 AGAP (test code = 5625866969) 8 2-16 BUN (test code = 3564334267) 16 mg/dL 7-23 GLUCOSE (test code = 8662797529) 112 mg/dL 70-110 H CREATININE (test code = 2160-0) 0.92 mg/dL 0.60-1.25 TOTAL BILI (test code = 9596178866) 0.5 mg/dL 0.1-1.1 CALCIUM (test code = 2340694114) 9.6 mg/dL 8.6-10.6 T PROTEIN (test code = 1320237362) 8.2 g/dL 6.3-8.2 ALBUMIN (test code = 0892315546) 4.8 g/dL 3.5-5.0 ALK PHOS (test code = 1113112853) 80 U/L 34-122 ALTv (test code = 1742-6) 30 U/L 5-50 AST(SGOT) (test code = 3477503818) 38 U/L 13-40 eGFR (test code = 76402-6) 114.1 mL/min/1.73m2 CKD-EPI eGFR (2020). Assuming creatinine has been stable day-to-day for at least three months, the eGFR indicates Category G1 (>= 90 mL/min/1.73 m2) Lab Interpretation (test code = 92908-7) Abnormal [facility] 20:17:56* Test Item Value Reference Range Interpretation Comme nts LIPASE (test code = 6659454684) 149 U/L 0-220 Lab Interpretation (test cod e = 41904-3) Normal [facility] HospitalCBC WITH [id number] 19:58:51* Test Item Value Reference Range Interpretation Comme nts WBC (test code = 6690-2) 6.25 4.20-10.70 RBC (test code = 789-8) 5.26 4.26-5.52 HGB (test code = 718-7) 15.9 g/dL 12.2-16.4 HCT (test code = 4544-3) 46.5 % 38.4-49.3 MCV (test code = 787-2) 88.4 fL 81.7-95.6 MCH (test code = 785-6) 30.2 pg 26.1-32.7 MCHC (test code = 786-4) 34.2 g/dL 31.2-35.0 RDW-SD (test code = 24770-5) 38.1 fL 38.5-51.6 L RDW-CV (test code = 788-0) 11.8 % 12.1-15.4 L PLT (test code = 777-3) 389 150-328 H MPV (test code = 16070-1) 9.2 fL 9.8-13.0 L NRBC/100 WBC (test code = 9124774661) 0.0 0.0-10.0 NRBC x10^3 (test code = 1706476887) See_Comment [Automated messa ge] The system which generated this result transmitted reference range: 10*3/?L. The reference range was not used to interpret this result as normal/abnormal. GRAN MAT (NEUT) % (test code = 770-8) 64.7 % IMM GRAN % (test code = 5728110209) 0.30 % LYMPH % (test code = 736-9) 24.6 % MONO % (test code = 5905-5) 9.6 % EOS % (test code = 713-8) 0.5 % BASO % (test code = 706-2) 0.3 % GRAN MAT x10^3(ANC) (test code = 3434681447) 4.04 10*3/uL 1.99-6.95 IMM GRAN x10^3 (test code = 8776496775) 0.00-0.06 LYMPH x10^3 (test code = 731-0) 1.54 10*3/uL 1.09-3.23 MONO x10^3 (test code = 742-7) 0.60 10*3/uL 0.36-1.02 EOS x10^3 (test code = 711-2) 0.03 10*3/uL 0.06-0.53 L BASO x10^3 (test code = 704-7) 0.01-0.09 Lab Interpretation (test code = 33993-4) Abnormal [facility] Urinalysis, [id number] 16:52:00 * Test Item Value Reference Range Interpretation Comme nts POCT U SP GRAV (test code = 3255) 1.010 mg/dl 1.005-1.025 POCT PH U (test code = 3254) 5.0 mg/dl 5-8 POCT U LEUK EST (test code = 3263) negative Negative - Negative POCT U NIT (test code = 3262) negative Negative - Negati ve POCT U PROT (test code = 3259) negative Negative - Negative POCT U GLU (test code = 3256) negative Negative - Negati ve POCT U KETONE (test code = 3258) negative Negative - Negative POCT U UROBILI (test code = 3260) 0.2 mg/dl 0.2-1 POCT U BILI (test code = 3261) negative Negative - Negative POCT U BLD (test code = 3257) negative Negative - Negati ve POCT U COLOR (test code = 3266) yellow POCT U APPEAR (test code = 3267) clear [facility],US,[id number] 16:52:00* Test Item Value Reference Range Interpretation Comme nts PVR (URINE VOLUME) (test code = 5193) 28 ml 0-100 [facility] SARS-COV-2 ANTIGEN (BINAX NOW)2023-12-20 18:11:00* Test Item Value Reference Range Interpretation Comme nts POCT SARS-COV-2 ANTIGEN (marty t code = 07264-5) Not Detected Not Detected On board controls acceptable with C Line (test code = 3574) Yes Lab Interpretation (test cod e = 58553-1) Normal [facility] Molecular [id number] 18:07:45* Test Item Value Reference Range Interpretation Comme nts POCT Molecular FluA (test co de = 46365-5) Negative Negative POCT Molecular FluB (test co de = 58017-8) Negative Negative Lab Interpretation (test cod e = 09104-6) Normal [facility] MOLECULAR [id number] 18:00:56* Test Item Value Reference Range Interpretation Comme [facility] POCT Molecular Strep (test c ode = 91960-1) Negative Negative Lab Interpretation (test cod e = 23069-8) [facility] N[facility]K SOFT [id number] 23:40:20ORDERING PHYSICIAN: ZOHRA PRATER HISTORY: 28 years old, Male, foreign body sensation in throat after taking3 pills , feeling of something stuck in throat TECHNIQUE: XR NECK SOFT TISSUE COMPARISON: none FINDINGS: Prevertebral soft tissues are normal. No radiopaque foreign bodyidentified. Bones appear intact.[facility] 2 [id number] 23:03:32EXAM: XR CHEST 2 VW COMPARISON: 12/08/2022 HISTORY: foreign body senation in throat , s/p swallowing p ills without anyliquidsUnW[facility]wayXR CERVICAL SPINE 2 VW 2023-07-05 16:43:54EXAM: XR CERVICAL SPINE 2 VW HISTORY: neck pain COMPARISON: Cervical spine radiograph dated 03/24/2015[facility] ParkwayCOMP. METABOLIC PANEL (03728)2022-12-12 00:37:54* Test Item Value Reference Range Interpretation Comme nts NA (test code = 4768267862) 142 mmol/L 135-145 K (test code = 2118250627) 4.1 mmol/L 3.5-5.0 CL (test code = 5821782694) 105 mmol/L 98-108 CO2 TOTAL (test code = 1311705336) 26 mmol/L 23-31 AGAP (test code = 7663687165) 11 2-16 BUN (test code = 1777684348) 15 mg/dL 7-23 GLUCOSE (test code = 9135106844) 97 mg/dL 70-110 CREATININE (test code = 2530779170) 1.03 mg/dL 0.60-1.25 TOTAL BILI (test code = 5140179204) 0.7 mg/dL 0.1-1.1 CALCIUM (test code = 0158256001) 10.0 mg/dL 8.6-10.6 T PROTEIN (test code = 0940395072) 8.3 g/dL 6.3-8.2 H ALBUMIN (test code = 5722620144) 5.1 g/dL 3.5-5.0 H ALK PHOS (test code = 0199734323) 66 U/L 34-122 ALTv (test code = 1742-6) 44 U/L 5-50 AST(SGOT) (test code = 6242526240) 30 U/L 13-40 eGFR (test code = 1869592974) 85.4 mL/min/1.73m2 DESIREE (test code = DESIREE) [...] imaging tests). Lab Interpretation (test code = 05478-7) Abnormal [facility] WITH [id number] 00:12:33* Test Item Value Reference Range Interpretation Comme nts WBC (test code = 6690-2) 7.70 See_Comment [Automated eSnips] The system which generated this result transmitted reference range: 4.20 - 10.70 10*3/?L. The reference range was not used to interpret this result as normal/abnormal. RBC (test code = 789-8) 5.28 See_Comment [Automated eSnips] The system which generated this result transmitted [...] g/dL 31.2-35.0 H RDW-SD (test code = 52423-8) 38.6 fL 38.5-51.6 RDW-CV (test code = 788-0) 12.0 % 12.1-15.4 L PLT (test code = 777-3) 328 See_Comment [Automated eSnips] The system which generated this result transmitted reference range: 150 - 328 10*3/?L. The reference range was not used to interpret this result as normal/abnormal. MPV (test code = 20842-5) 9.4 fL 9.8-13.0 L NRBC/100 WBC (test code = 5811694276) 0.0 See_Comment [Automated CombiMatrix ssage] The system which generated this result transmitted reference range: 0.0 - 10.0 /100 WBCs. The reference range was not used to interpret this result as normal/abnormal. NRBC x10^3 (test code = 9906802822) See_Comment [Automated messa ge] The system which generated this result transmitted reference range: 10*3/?L. The reference range was not used to interpret this result as normal/abnormal. GRAN MAT (NEUT) % (test code = 770-8) 69.1 % IMM GRAN % (test code = 8736518980) 0.30 % LYMPH % (test code = 736-9) 23.8 % MONO % (test code = 5905-5) 5.8 % EOS % (test code = 713-8) 0.5 % BASO % (test code = 706-2) 0.5 % GRAN MAT x10^3(ANC) (test code = 3713313828) 5.32 10*3/uL 1.99-6.95 IMM GRAN x10^3 (test code = 5677422113) 0.00-0.06 LYMPH x10^3 (test code = 731-0) 1.83 10*3/uL 1.09-3.23 MONO x10^3 (test code = 742-7) 0.45 10*3/uL 0.36-1.02 EOS x10^3 (test code = 711-2) 0.04 10*3/uL 0.06-0.53 L BASO x10^3 (test code = 704-7) 0.04 10*3/uL 0.01-0.09 Lab Interpretation (test code = 86803-0) [facility] [id number] 22:27:19 * Test Item Value Reference Range Interpretation Comme nts TSH (test code = 4821184077) 1.74 See_Comment [Automated messa ge] The system which generated this result transmitted reference range: 0.45 - 4.70 mIU/L. The reference range was not used to interpret this result as normal/abnormal. Lab Interpretation (test code = 16008-4) Normal [facility]TR[facility] [id number] 22:08:38* Test Item Value Reference Range Interpretation Comme nts TROPONIN I (test code = 7319184929) 0.004 ng/mL <=0.034 DEISREE (test code = DESIREE) Reference (Normal) Range [...] of biotin. Lab Interpretation (test code = 58610-3) Normal [facility] 22:05:21* Test Item Value Reference Range Interpretation Comme nts LIPASE (test code = 6677757613) 213 U/L 0-220 Lab Interpretation (test cod e = 39061-0) Normal [facility] 22:05:16* Test Item Value Reference Range Interpretation Comme nts MAGNESIUM (test code = 2010784322) 1.7 mg/dL 1.7-2.4 Lab Interpretation (test cod e = 09144-9) Normal [facility]COMP. METABOLIC PANEL (52506)2022-12-08 22:05:06* Test Item Value Reference Range Interpretation Comme nts NA (test code = 2743397614) 140 mmol/L 135-145 K (test code = 8555162003) 3.9 mmol/L 3.5-5.0 CL (test code = 8726656264) 105 mmol/L 98-108 CO2 TOTAL (test code = 1860000818) 26 mmol/L 23-31 AGAP (test code = 0192177188) 9 2-16 BUN (test code = 0989361044) 14 mg/dL 7-23 GLUCOSE (test code = 9672955965) 96 mg/dL 70-110 CREATININE (test code = 8770134299) 0.90 mg/dL 0.60-1.25 TOTAL BILI (test code = 3955431119) 0.8 mg/dL 0.1-1.1 CALCIUM (test code = 5500994877) 9.8 mg/dL 8.6-10.6 T PROTEIN (test code = 3905456317) 7.9 g/dL 6.3-8.2 ALBUMIN (test code = 4671459579) 4.9 g/dL 3.5-5.0 ALK PHOS (test code = 8934745748) 61 U/L 34-122 ALTv (test code = 1742-6) 39 U/L 5-50 AST(SGOT) (test code = 4082728122) 30 U/L 13-40 eGFR (test code = 0292807283) 99.8 mL/min/1.73m2 DESIREE (test code = EDSIREE) Association of Glomerular Filtration Rate (GFR) and [...] or urine or abnormalities in imaging tests). [facility]GANEX[facility]137-[facility]-53 21:41:43* Test Item Value Reference Range Interpretation Comments D-DIMER (test code = 6960775317) See_Comment [Automated message] The system which generated [...] a diagnosis. Lab Interpretation (test code = 81253-5) Normal [facility] WITH [id number] 21:26:36* Test Item Value Reference Range Interpretation Comme nts WBC (test code = 6690-2) 6.69 See_Comment [Automated eSnips] The system which generated this result transmitted reference range: 4.20 - 10.70 10*3/?L. The reference range was not used to interpret this result as normal/abnormal. RBC (test code = 789-8) 5.24 See_Comment [Automated eSnips] The system which generated this result transmitted [...] g/dL 31.2-35.0 H RDW-SD (test code = 74042-5) 38.9 fL 38.5-51.6 RDW-CV (test code = 788-0) 12.1 % 12.1-15.4 PLT (test code = 777-3) 325 See_Comment [Automated PolyActivaa ge] The system which generated this result transmitted reference range: 150 - 328 10*3/?L. The reference range was not used to interpret this result as normal/abnormal. MPV (test code = 77307-7) 9.4 fL 9.8-13.0 L NRBC/100 WBC (test code = 7251944600) 0.0 See_Comment [Automated CombiMatrix ssage] The system which generated this result transmitted reference range: 0.0 - 10.0 /100 WBCs. The reference range was not used to interpret this result as normal/abnormal. NRBC x10^3 (test code = 9130620367) See_Comment [Automated PolyActivaa ge] The system which generated this result transmitted reference range: 10*3/?L. The reference range was not used to interpret this result as normal/abnormal. GRAN MAT (NEUT) % (test code = 770-8) 57.8 % IMM GRAN % (test code = 8041275943) 0.30 % LYMPH % (test code = 736-9) 33.8 % MONO % (test code = 5905-5) 6.9 % EOS % (test code = 713-8) 0.6 % BASO % (test code = 706-2) 0.6 % GRAN MAT x10^3(ANC) (test code = 5825543855) 3.87 10*3/uL 1.99-6.95 IMM GRAN x10^3 (test code = 4088132113) 0.00-0.06 LYMPH x10^3 (test code = 731-0) 2.26 10*3/uL 1.09-3.23 MONO x10^3 (test code = 742-7) 0.46 10*3/uL 0.36-1.02 EOS x10^3 (test code = 711-2) 0.04 10*3/uL 0.06-0.53 L BASO x10^3 (test code = 704-7) 0.04 10*3/uL 0.01-0.09 Lab Interpretation (test code = 17336-9) Abnormal [facility] METABOLIC PANEL (NA, K, CL, CO2, GLUCOSE, BUN, CREATININE, CA)2022-11-13 23:40:36* Test Item Value Reference Range Interpretation Comme nts NA (test code = 4381585665) 140 mmol/L 135-145 K (test code = 4835851559) 4.1 mmol/L 3.5-5.0 CL (test code = 9432408831) 103 mmol/L 98-108 CO2 TOTAL (test code = 6115816007) 26 mmol/L 23-31 AGAP (test code = 6224543728) 11 2-16 BUN (test code = 5553868736) 14 mg/dL 7-23 GLUCOSE (test code = 2010339316) 106 mg/dL 70-110 CREATININE (test code = 2258343641) 0.89 mg/dL 0.60-1.25 CALCIUM (test code = 9570662395) 9.7 mg/dL 8.6-10.6 eGFR (test code = 3237877808) 101.1 mL/min/1.73m2 DESIREE (test code = DESIREE) [...] or urine or abnormalities in imaging tests). [facility] WITH [id number] 23:33:18* Test Item Value Reference Range Interpretation Comme nts WBC (test code = 6690-2) 9.32 See_Comment [Automated PolyActivaa ge] The system which generated this result transmitted reference range: 4.20 - 10.70 10*3/?L. The reference range was not used to interpret this result as normal/abnormal. RBC (test code = 789-8) 5.42 See_Comment [Automated PolyActivaa ge] The system which generated this result [...] 35.0 g/dL 31.2-35.0 RDW-SD (test code = 92899-4) 37.6 fL 38.5-51.6 L RDW-CV (test code = 788-0) 12.2 % 12.1-15.4 PLT (test code = 777-3) 314 See_Comment [Automated PolyActivaa ge] The system which generated this result transmitted reference range: 150 - 328 10*3/?L. The reference range was not used to interpret this result as normal/abnormal. MPV (test code = 93721-6) 9.6 fL 9.8-13.0 L NRBC/100 WBC (test code = 5242942457) 0.0 See_Comment [Automated me ssage] The system which generated this result transmitted reference range: 0.0 - 10.0 /100 WBCs. The reference range was not used to interpret this result as normal/abnormal. NRBC x10^3 (test code = 3918970624) See_Comment [Automated messa ge] The system which generated this result transmitted reference range: 10*3/?L. The reference range was not used to interpret this result as normal/abnormal. GRAN MAT (NEUT) % (test code = 770-8) 74.5 % IMM GRAN % (test code = 4326078907) 0.10 % LYMPH % (test code = 736-9) 18.1 % MONO % (test code = 5905-5) 6.5 % EOS % (test code = 713-8) 0.3 % BASO % (test code = 706-2) 0.5 % GRAN MAT x10^3(ANC) (test code = 2336034804) 6.93 10*3/uL 1.99-6.95 IMM GRAN x10^3 (test code = 1426498011) 0.00-0.06 LYMPH x10^3 (test code = 731-0) 1.69 10*3/uL 1.09-3.23 MONO x10^3 (test code = 742-7) 0.61 10*3/uL 0.36-1.02 EOS x10^3 (test code = 711-2) 0.03 10*3/uL 0.06-0.53 L BASO x10^3 (test code = 704-7) 0.05 10*3/uL 0.01-0.09 Lab Interpretation (test code = 42334-2) Abnormal [facility] URINALYSIS W SPECIFIC [id number] 16:30:00* Test Item Value Reference Range Interpretation [...] 3267) CLEAR Lab Interpretation (test code = 85290-0) Abnormal [facility] URINALYSIS W SPECIFIC [id number] 16:30:00* Test Item Value Reference Range Interpretation [...] 3267) CLEAR Lab Interpretation (test code = 63333-3) Abnormal [facility] URINALYSIS W SPECIFIC [id number] 16:30:00* Test Item Value Reference Range Interpretation [...] 3267) CLEAR Lab Interpretation (test code = 05228-8) [facility]normal [facility] W ADJCUVIZ5395-07-94 18:54:58CT Abdomen and Pelvis with intravenous contrast. [...] is noted, otherwise no acuteintra-abdominal or pelvic abnormalities.[facility] ZhquxlSMMMRGNYUJ8885-21-75 18:02:33* Test Item Value Reference Range Interpretation Comme nts APPEARANCE (test code = 7597765964) Clear Clear COLOR (test code = 9565944282) Yellow Yellow PH (test code = 3693332459) 4.8-8.0 SP GRAVITY (test code = 9028506160) 1.003-1.030 GLU U QUAL (test code = 1138708609) Normal Normal BLOOD (test code = 5194521049) Negative Negative KETONES (test code = 5191437653) Negative Negative PROTEIN (test code = 2887-8) Negative Negative UROBILIN (test code = 8757774315) Normal Normal BILIRUBIN (test code = 5317231242) Negative Negative NITRITE (test code = 5422046862) Negative Negative LEUK MITALI (test code = 0615121787) Negative Negative RBC/HPF (test code = 5164186665) See_Comment [Automated PolyActivaa ge] The system which generated this result transmitted reference range: 0 - 3 HPF. The reference range was not used to interpret this result as normal/abnormal. WBC/HPF (test code = 1412425245) See_Comment [Automated PolyActivaa ge] The system which generated this result transmitted reference range: 0 - 5 HPF. The reference range was not used to interpret this result as normal/abnormal. BACTERIA (test code = 4696081085) Negative Negative MUCOUS (test code = 5882936849) Slight Negative LPF A Lab Interpretation (test code = 63010-9) Abnormal [facility]. METABOLIC PANEL (76297)2020-12-28 17:57:13* Test Item Value Reference Range Interpretation Comme nts NA (test code = 4026040185) 142 mmol/L 135-145 K (test code = 7104743629) 4.5 mmol/L 3.5-5.0 CL (test code = 9006800650) 104 mmol/L 98-108 CO2 TOTAL (test code = 2200574439) 29 mmol/L 23-31 AGAP (test code = 8353081088) 2-16 BUN (test code = 3819398789) 13 mg/dL 7-23 GLUCOSE (test code = 7285326212) 101 mg/dL 70-110 CREATININE (test code = 2352337582) 0.92 mg/dL 0.60-1.25 TOTAL BILI (test code = 6302130950) 0.5 mg/dL 0.1-1.1 CALCIUM (test code = 3849499696) 9.9 mg/dL 8.6-10.6 T PROTEIN (test code = 6246378734) 8.0 g/dL 6.3-8.2 ALBUMIN (test code = 4462371360) 4.8 g/dL 3.5-5.0 ALK PHOS (test code = 0503394543) 61 U/L 34-122 ALTv (test code = 1742-6) 47 U/L 5-50 AST(SGOT) (test code = 3057861509) 37 U/L 13-40 eGFR (test code = 3768624958) mL/min/1.73m2 DESIREE (test code = DESIREE) Association [...] or urine or abnormalities in imaging tests). [facility] 17:56:33* Test Item Value Reference Range Interpretation Comme nts LIPASE (test code = 7333638638) 328 U/L 0-220 H Lab Interpretation (test cod e = 38419-4) Abnormal [facility] HospitalCBC WITH [id number] 17:51:55* Test Item Value Reference Range Interpretation [...] 34.3 g/dL 31.2-35.0 RDW-SD (test code = 22321-7) 38.7 fL 38.5-51.6 RDW-CV (test code = 788-0) 12.2 % 12.1-15.4 PLT (test code = 777-3) See_Comment [Automated messa ge] The system which generated this result transmitted reference range: 150 - 328 10*3/?L. The reference range was not used to interpret this result as normal/abnormal. MPV (test code = 09461-5) 9.3 fL 9.8-13.0 L NRBC/100 WBC (test code = 0543995161) See_Comment [Automated CombiMatrix ssage] The system which generated this result transmitted reference range: 0.0 - 10.0 /100 WBCs. The reference range was not used to interpret this result as normal/abnormal. NRBC x10^3 (test code = 9084644217) <0.01 See_Comment [Automated messa ge] The system which generated this result transmitted reference range: 10*3/?L. The reference range was not used to interpret this result as normal/abnormal. GRAN MAT (NEUT) % (test code = 770-8) 53.5 % IMM GRAN % (test code = 1536647240) 0.20 % LYMPH % (test code = 736-9) 34.2 % MONO % (test code = 5905-5) 9.6 % EOS % (test code = 713-8) 2.1 % BASO % (test code = 706-2) 0.4 % GRAN MAT x10^3(ANC) (test code = 9784928471) 2.56 10*3/uL 1.99-6.95 IMM GRAN x10^3 (test code = 1718529101) <0.03 0.00-0.06 LYMPH x10^3 (test code = 731-0) 1.64 10*3/uL 1.09-3.23 MONO x10^3 (test code = 742-7) 0.46 10*3/uL 0.36-1.02 EOS x10^3 (test code = 711-2) 0.10 10*3/uL 0.06-0.53 BASO x10^3 (test code = 704-7) <0.03 0.01-0.09 Lab Interpretation (test code = 68303-8) Abnormal [facility]aPTT[facility] 15:42:57* Test Item Value Reference Range Interpretation Comme [facility] APTT Patient (test code = 3173-2) See_Comment [Automated message] The system which generated this result transmitted reference range: 23 - 38 Seconds. The reference range was not used to interpret this result as normal/abnormal. DESIREE (test code = DESIREE) The [facility] patient population mean normal value for aPTT is 30 seconds. Lab Interpretation (test code = 76004-9) Normal [facility] HospitalProthrombin Time (PT) / [id number] 15:40:16 * Test Item Value Reference Range Interpretation Comme [facility] PROTIME PATIENT (test code = 5964-2) See_Comment [Automated PolyActivaa ge] The system which generated this result transmitted reference range: 12.0 - 14.7 Seconds. The reference range was not used to interpret this result as normal/abnormal. INR (test code = 6301-6) Normal INR <1.1; Warfarin Therapeutic range 2.0 to 3.0 or 2.5 to 3.5, depending upon the indications. Lab Interpretation (test code = 19618-6) Normal [facility] HospitalUrinalysis2021-06-05 14:32:20* Test Item Value Reference Range Interpretation Comme nts APPEARANCE (test code = 3262838526) Hazy Clear A COLOR (test code = 8972235347) Shellie Yellow A PH (test code = 1313971326) 4.8-8.0 SP GRAVITY (test code = 8250207252) 1.003-1.030 H GLU U QUAL (test code = 9013277367) Normal Normal BLOOD (test code = 9810070175) Negative Negative KETONES (test code = 4582301948) Negative Negative PROTEIN (test code = 2887-8) Negative Negative UROBILIN (test code = 0224860595) Normal Normal BILIRUBIN (test code = 9773862343) Negative Negative NITRITE (test code = 8930222520) Negative Negative LEUK MITALI (test code = 3892664640) Negative Negative RBC/HPF (test code = 3808961590) See_Comment [Automated PolyActivaa ge] The system which generated this result transmitted reference range: 0 - 3 HPF. The reference range was not used to interpret this result as normal/abnormal. WBC/HPF (test code = 0828554905) See_Comment [Automated PolyActivaa ge] The system which generated this result transmitted reference range: 0 - 5 HPF. The reference range was not used to interpret this result as normal/abnormal. BACTERIA (test code = 1664629529) Few Negative A MUCOUS (test code = 7996204408) Marked Negative LPF A SQ EPITH (test code = 3791128318) <1 HPF Lab Interpretation (test code = 57491-4) Abnormal [facility] HospitalURINE DRUG (IMMUNOASSAY) - COMPREHENSIVE DRUG [id number] 14:30:54* Test Item Value Reference Range Interpretation Comme nts AMPHET (test code = 9373434604) Negative Negative REBECA U (test code = 4668237671) Negative Negative BENZO U (test code = 0611049402) Negative Negative Cocaine Metabolite (test code = 9593810715) Negative Negative METHADONE (test code = 0623038563) Negative Negative OPIATES (test code = 4020079544) Negative Negative PCP (test code = 9393304357) Negative Negative THC (test code = 2727892050) Presumptive Positive Negative A DESIREE (test code [...] legal testing). Lab Interpretation (test code = 83822-8) Abnormal [facility] HospitalSALICYLATE2021-06-05 13:41:52* Test Item Value Reference Range Interpretation Comme nts SALICYLATE (test code = 6837991269) <10 mg/L DESIREE (test code = DESIREE) Therapeutic Range: ? Analgesic and Antipyretic Use ? 20-100 mg/L ? ? Anti-Inflammatory Use ? 100-250 mg/L Toxic Range: ? Greater than 300 mg/L [facility] HospitalACETAMINOPHEN2021-06-05 13:41:52* Test Item Value Reference Range Interpretation Comme nts ACETAMINOP (test code = 1399162835) <10.0 10.0-30.0 L DESIREE (test code = DESIREE) Toxic: Greater jurgen n 200 ug/mL @ 4 hour post ingestion or greater than 50 ug/mL @ 12 hour post ingestion Lab Interpretation (test code = 60952-8) Abnormal [facility] HospitalCOVID-19 (ID NOW RAPID TESTING)2020-12-10 13:13:08* Test Item Value Reference Range Interpretation Comme nts SARS-CoV-2 Rapid ID NOW (test code = 20236-6) Not Detected Not Detected DESIREE (test code = DESIREE) ID NOW COVID-19 As say is an isothermal nucleic acid amplification test intended for the qualitative detection of nucleic acid from SARS-CoV-2 viral RNA in 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 It is used under Emergency [...] clinically indicated. Lab Interpretation (test code = 82976-0) Normal [facility] HospitalETHANOL2021-06-05 13:08:25* Test Item Value Reference Range Interpretation Comme nts ALCOHOL (test code = 9176568023) <10 mg/dL DESIREE (test code = DESIREE) <10 Qjbnccdw60-076 Toxic>100 Depression of MATERIALS AND CORROSION ENGINEER>400 Fatalities Reported [facility] HospitalLactic Acid Whole Xayht8860-78-69 12:41:49* Test Item Value Reference Range Interpretation Comme nts LACTIC ACID (test code = 2831897083) 1.89 mmol/L 0.50-2.20 Lab Interpretation (test cod e = 66986-4) Normal [facility] HospitalMAGNESIUM2021-06-05 12:38:27* Test Item Value Reference Range Interpretation Comme nts MAGNESIUM (test code = 6255434509) 1.7 mg/dL 1.7-2.4 Lab Interpretation (test cod e = 30638-1) Normal [facility] HospitalHepatic Function Panel (ALB, T.PRO, BILI T, BU/BC, ALT, AST, ALK PHOS)2020-12-10 12:38:07* Test Item Value Reference Range Interpretation Comme nts TOTAL BILI (test code = 3438623538) 0.8 mg/dL 0.1-1.1 BILI UNCON (test code = 8772984107) 0.6 mg/dL 0.1-1.1 BILI CONJ (test code = 9930062616) 0.0 mg/dL 0.0-0.3 T PROTEIN (test code = 7132084350) 8.4 g/dL 6.3-8.2 H ALBUMIN (test code = 2851880609) 5.2 g/dL 3.5-5.0 H ALK PHOS (test code = 0383639940) 69 U/L 34-122 ALTv (test code = 1742-6) 39 U/L 5-50 AST(SGOT) (test code = 9606572637) 36 U/L 13-40 Lab Interpretation (test cod e = 21900-0) Abnormal [facility] Metabolic Panel (NA, K, CL, CO2, GLUCOSE, BUN, CREATININE, CA)2020-12-10 12:37:47* Test Item Value Reference Range Interpretation Comme nts NA (test code = 6156467691) 141 mmol/L 135-145 K (test code = 5686650287) 3.7 mmol/L 3.5-5.0 CL (test code = 0633011371) 105 mmol/L 98-108 CO2 TOTAL (test code = 2021814232) 27 mmol/L 23-31 AGAP (test code = 8505482041) 2-16 BUN (test code = 6241255702) 19 mg/dL 7-23 GLUCOSE (test code = 1331359377) 128 mg/dL 70-110 H CREATININE (test code = 9995817926) 1.16 mg/dL 0.60-1.25 CALCIUM (test code = 9352019022) 9.6 mg/dL 8.6-10.6 eGFR (test code = 6531413833) mL/min/1.73m2 DESIREE (test code = DESIREE) Association [...] imaging tests). Lab Interpretation (test code = 86933-8) Abnormal [facility] HospitalLipase Etacz0066-14-94 12:37:47* Test Item Value Reference Range Interpretation Comme nts LIPASE (test code = 3843995148) 241 U/L 0-220 H Lab Interpretation (test cod e = 24379-9) Abnormal [facility] HospitalCBC with Ykdyjczwfton4474-54-25 12:25:07* Test Item Value Reference Range Interpretation [...] 34.0 g/dL 31.2-35.0 RDW-SD (test code = 99597-0) 39.2 fL 38.5-51.6 RDW-CV (test code = 788-0) 12.3 % 12.1-15.4 PLT (test code = 777-3) See_Comment [Automated message] The system which generated this result transmitted reference range: 150 - 328 10*3/?L. The reference range was not used to interpret this result as normal/abnormal. MPV (test code = 39468-0) 9.3 fL 9.8-13.0 L NRBC/100 WBC (test code = 7724733113) See_Comment [Automated message] The system which generated this result transmitted reference range: 0.0 - 10.0 /100 WBCs. The reference range was not used to interpret this result as normal/abnormal. NRBC x10^3 (test code = 6877970699) <0.01 See_Comment [Automated message] The system which generated this result transmitted reference range: 10*3/?L. The reference range was not used to interpret this result as normal/abnormal. GRAN MAT (NEUT) % (test code = 770-8) 87.5 % IMM GRAN % (test code = 1493740246) 0.30 % LYMPH % (test code = 736-9) 5.2 % MONO % (test code = 5905-5) 6.4 % EOS % (test code = 713-8) 0.3 % BASO % (test code = 706-2) 0.3 % GRAN MAT x10^3(ANC) (test code = 2212856276) 12.14 10*3/uL 1.99-6.95 H IMM GRAN x10^3 (test code = 9901038740) 0.04 10*3/uL 0.00-0.06 LYMPH x10^3 (test code = 731-0) 0.72 10*3/uL 1.09-3.23 L MONO x10^3 (test code = 742-7) 0.89 10*3/uL 0.36-1.02 EOS x10^3 (test code = 711-2) 0.04 10*3/uL 0.06-0.53 L BASO x10^3 (test code = 704-7) 0.04 10*3/uL 0.01-0.09 Lab Interpretation (test code = 72314-9) [facility]normal [facility]
[2024-08-12] MEDS ORDERED: dexAMETHasone 4 MG TAB ONE (12:21)
[2024-08-12] MEDS ORDERED: AZITHROMYCIN 250 MG TAB ONE (12:22)
[2024-08-12] MEDS ORDERED: FAMOTIDINE 20 MG TAB ONE (12:22)
[2024-08-12] MEDS ORDERED: DIPHENHYDRAMINE 25 MG TAB/CAP ONE (12:22)
[2024-08-12 12:43] LABS: SARS-CoV-2 Antigen CONTROL BLUE LINE VIS/BG OK
[2024-08-12 12:44] LABS: SARS-CoV-2 Antigen Rapid Res Positive (Negative)
--- NOTE | 2024-08-12 12:46 | ER ---
Nurse's Notes [facility] Name: Ramiro Jay Age: 29 yrs Sex: Male : 1995 Arrival Date: 08/12/2024 Time: 11:12 Bed 19 Private MD: Diagnosis: SARS-associated coronavirus as the cause of diseases classified elsewhere;Fever, unspecified;Acute upper respiratory infection, unspecified Presentation: 08/12 11:48 Chief complaint: Patient states: Has been sick for the last 3 days. Pt reports body cm10 aches, headache, fever. Pt also reports shortness of breath and rash to neck. 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 Coronavirus screen: Client denies travel out of the [place] in the last 14 days. Ebola Screen: Patient denies travel to an Ebola-affected area in the 21 days before illness onset. Initial Sepsis Screen: Does the patient meet any 2 criteria? No. Patient's initial sepsis screen is negative. Does the patient have a suspected source of infection? No. Patient's initial sepsis screen is negative. Risk Assessment: Do you want to hurt yourself or someone else? Patient reports no desire to harm self or others. Onset of symptoms was August 12, 2024. 11:48 Method Of Arrival: Ambulatory cm10 11:48 Acuity: MICHELA 3 cm10 Triage Assessment: 11:50 General: Appears uncomfortable, Behavior is anxious. Neuro: No deficits noted. Level of cm10 Consciousness is awake, alert, obeys commands, Oriented to person, place, time, situation, Appropriate for age. Respiratory: No deficits noted. Airway is patent Respiratory effort is even, unlabored, Respiratory pattern is regular, symmetrical. Historical: - Allergies: 11:50 No Known Allergies; cm10 - PMHx: 11:50 ADD/ADHD; Anxiety; depressive disorder; Gastric Reflux; HERPES; Pancreatitis; cm10 - Immunization history:: Adult Immunizations up to date. - Infectious Disease History:: Denies. - Social history:: Smoking status: Patient denies any tobacco usage or history of. Screenin:00 [facility] ED Fall Risk Assessment (Adult) History of falling in the last 3 months, jb4 including since admission No falls in past 3 months (0 pts) Confusion or Disorientation No (0 pts) Intoxicated or Sedated No (0 pts) Impaired Gait No (0 pts) Mobility Assist Device Used No (0 pt) Altered Elimination No (0 pt) Score/Fall Risk Level 0 - 2 = Low Risk Oriented to surroundings, Maintained a safe environment. Abuse screen: Denies threats or abuse. Nutritional screening: No deficits noted. Tuberculosis screening: No symptoms or risk factors identified. Assessment: 12:00 Reassessment: Patient appears in no apparent distress at this time. Patient and/or jb4 family updated on plan of care and expected duration. Pain level reassessed. Patient is alert, oriented x 3, equal unlabored respirations, skin warm/dry/pink. 12:00 General: Appears in no apparent distress. uncomfortable, Behavior is calm, cooperative, jb4 appropriate for age. Pain: Complains of pain in throat Pain does not radiate. Pain currently is 8 out of 10 on a pain scale. Neuro: Level of Consciousness is awake, alert, obeys commands, Oriented to person, place, time, situation. Cardiovascular: Patient's skin is warm and dry. Respiratory: Airway is patent Respiratory effort is even, unlabored, Respiratory pattern is regular, symmetrical. EENT: Throat is clear is reddened with gag reflex present. Vital Signs: 11:48 BP 125 / 83; Pulse 88; Resp 15; Temp 98.1; Pulse Ox 100% ; Weight 113.4 kg; Height 6 cm10 ft. 2 in. ; Pain 8/10; 11:48 Body Mass Index 32.10 (113.40 kg, 187.96 cm) cm10 11:48 Pain Scale: Adult cm10 ED Course: 11:15 Patient arrived in ED. al6 11:34 Preston Harrison MD is Attending Physician. dillan 11:50 Triage completed. cm10 11:50 Arm band placed on right wrist. Patient placed in an exam room, on a stretcher. cm10 12:00 Patient has correct armband on for positive identification. Bed in low position. Call jb4 light in reach. Side rails up X 1. Provided Education on: plan of care. 12:00 No provider procedures requiring assistance completed. Patient did not have IV access jb4 during this emergency room visit. 12:37 Hansel Moyer RN is Primary Nurse. jb4 12:37 Strep Sent. jb4 12:37 SARS RAPID Sent. jb4 12:37 Flu Sent. 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 instructed jb4 to give 25mg of benadryll): [id number] mg PO once 12:36 Drug: diphenhydrAMINE PO 25 mg PO once Route: PO; jb4 13:00 Follow up: Response: No adverse reaction; Marked relief of symptoms jb4 12:37 Drug: AZITHromycin PO 500 mg PO once Route: PO; jb4 13:00 Follow up: Response: No adverse reaction jb4 12:37 Drug: Dexamethasone PO 10 mg PO once Route: PO; jb4 13:00 Follow up: Response: No adverse reaction jb4 Medication: 12:00 VIS not applicable for this client. jb4 Outcome: 12:46 Discharge ordered by . dillan 13:10 Discharged to home ambulatory, jb4 13:10 Condition: stable 13:10 Discharge instructions given to patient, Instructed on discharge instructions, follow up and referral plans. medication usage, Demonstrated understanding of instructions, follow-up care, medications, Prescriptions given X 4, 13:15 Patient left the ED. jb4 Signatures: Preston Harrison MD MD cha Bryson, James RN RN jb4 Geri Montoya RN RN cm10 Yenni Villarreal6
--- NOTE | 2024-08-12 12:46 | EDPHYS ---
Physician Documentation [facility] Name: Ramiro Jay Age: 29 yrs Sex: Male : 1995 Arrival Date: 08/12/2024 Time: 11:12 Bed 19 Private MD: ED Physician Preston Harrison HPI: 08/12 12:41 This 29 yrs old Male presents to ER via Ambulatory with complaints of dillan Breathing Difficulty, Rash - around neck, feels lump in throat. 12:41 The patient has shortness of breath at rest. Onset: The symptoms/episode began/occurred dillan 3 day(s) ago. Duration: The symptoms are continuous, and are unchanged since they started. The patient's shortness of breath is aggravated by coughing. Associated signs and symptoms: Pertinent positives: non-productive cough, rash. Severity of symptoms: At their worst the symptoms were mild moderate in the emergency department the symptoms have improved mildly. The patient has experienced similar episodes in the past, a few times. Historical: - Allergies: 11:50 No Known Allergies; cm10 - PMHx: 11:50 ADD/ADHD; Anxiety; depressive disorder; Gastric Reflux; HERPES; Pancreatitis; cm10 - Immunization history:: Adult Immunizations up to date. - Infectious Disease History:: Denies. - Social history:: Smoking status: Patient denies any tobacco usage or history of. ROS: 12:42 Constitutional: Negative for fever, chills, and weight loss, Eyes: Negative for injury, dillan pain, redness, and discharge, ENT: Negative for injury, pain, and discharge, Neck: Negative for injury, pain, and swelling, Cardiovascular: Negative for chest pain, palpitations, and edema, Abdomen/GI: Negative for abdominal pain, nausea, vomiting, diarrhea, and constipation, Back: Negative for injury and pain, : Negative for injury, bleeding, discharge, and swelling, MS/Extremity: Negative for injury and deformity, Neuro: Negative for headache, weakness, numbness, tingling, and seizure, Psych: Negative for depression, anxiety, suicide ideation, homicidal ideation, and hallucinations, Allergy/Immunology: Negative for hives, rash, and allergies, Endocrine: Negative for neck swelling, polydipsia, polyuria, polyphagia, and marked weight changes, Hematologic/Lymphatic: Negative for swollen nodes, abnormal bleeding, and unusual bruising, 12:42 Respiratory: Positive for cough, shortness of breath, 12:42 Skin: Positive for rash, 12:42 Neuro: Positive for weakness, Exam: 12:42 Constitutional: This is a well developed, well nourished patient who is awake, alert, dillan and in no acute distress. Head/Face: Normocephalic, atraumatic. Eyes: Pupils equal round and reactive to light, extra-ocular motions intact. Lids and lashes normal. Conjunctiva and sclera are non-icteric and not injected. Cornea within normal limits. Periorbital areas with no swelling, redness, or edema. Neck: Trachea midline, no thyromegaly or masses palpated, and no cervical lymphadenopathy. Supple, full range of motion without nuchal rigidity, or vertebral point tenderness. No Meningismus. Chest/axilla: Normal chest wall appearance and motion. Nontender with no deformity. No lesions are appreciated. Cardiovascular: Regular rate and rhythm with a normal S1 and S2. No gallops, murmurs, or rubs. Normal PMI, no JVD. No pulse deficits. Respiratory: Lungs have equal breath sounds bilaterally, clear to auscultation and percussion. No rales, rhonchi or wheezes noted. No increased work of breathing, no retractions or nasal flaring. Abdomen/GI: Soft, non-tender, with normal bowel sounds. No distension or tympany. No guarding or rebound. No evidence of tenderness throughout. Back: No spinal tenderness. No costovertebral tenderness. Full range of motion. MS/ Extremity: Pulses equal, no cyanosis. Neurovascular intact. Full, normal range of motion., bilateral aka Neuro: Awake and alert, GCS 15, oriented to person, place, time, and situation. Cranial nerves II-XII grossly intact. Motor strength 5/5 in all extremities. Sensory grossly intact. Cerebellar exam normal. Normal gait. Psych: Awake, alert, with orientation to person, place and time. Behavior, mood, and affect are within normal limits. 12:42 ENT: Posterior pharynx: Airway: normal, no evidence of obstruction, Tonsils: bilaterally enlarged, Uvula: normal, midline, non-edematous, no erythema, swelling, is not appreciated, erythema, that is mild, exudate, is not appreciated, peritonsillar mass, is not appreciated, Vital Signs: 11:48 BP 125 / 83; Pulse 88; Resp 15; Temp 98.1; Pulse Ox 100% ; Weight 113.4 kg; Height 6 cm10 ft. 2 in. ; Pain 8/10; 11:48 Body Mass Index 32.10 (113.40 kg, 187.96 cm) cm10 11:48 Pain Scale: Adult cm10 MDM: 11:34 Medical Screening Exam initiated [facility] 12:43 Differential diagnosis: Anemia Anxiety Reaction obstructed airway, bronchitis, flu, dillan URI, pneumonia, reactive airway disease, Sepsis. Antibiotic administration: The patient is discharged and will get outpatient antibiotics, Zithromax. Differential Diagnosis altered mental status, sepsis, flu. Immunization status:. Data reviewed: vital signs, nurses notes, lab test result(s). Consideration of Admission/Observation Escalation of care including admission/observation considered. I considered the following discharge prescriptions or medication management in the emergency department Medications were administered in the Emergency Department. See MAR. Historians other than the Patient: pt well informed. 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 instructed [facility] to give 25mg of benadryll): mg PO once 12:36 Drug: diphenhydrAMINE PO 25 mg PO once Route: PO; jb4 13:00 Follow up: Response: No adverse reaction; Marked relief of symptoms jb4 12:37 Drug: AZITHromycin PO 500 mg PO once Route: PO; jb4 13:00 Follow up: Response: No adverse reaction jb4 12:37 Drug: Dexamethasone PO 10 mg PO once Route: PO; jb4 13:00 Follow up: Response: No adverse reaction jb4 Disposition Summary: 02/05/25 12:46 Discharge Ordered Notes: Location: Home [facility] Problem: new [facility] Symptoms: have improved [facility] Condition: Stable [facility] Diagnosis - SARS-associated coronavirus as the cause of diseases classified elsewhere [facility] - Fever, unspecified dillan - Acute upper respiratory infection, unspecified dillan Followup: [facility] - With: Private Physician - When: 2 - 3 days - Reason: Recheck today's complaints, Continuance of care, Re-evaluation by your physician Discharge Instructions: - Discharge Summary Sheet dillan - Fever, Adult dillan - Upper Respiratory Infection, Adult dillan - Cool Mist Vaporizer [facility] - Upper Respiratory Infection, Adult, [id number] dillan - Cough, Adult, [id number] [facility] - Aspirin and Your Heart [facility] - Cough, Adult [facility] - COVID-19: What Your Test Results Mean - [facility] (04/04/2021) dillan - 10 Things You Can Do to Manage Your COVID-19 Symptoms at Home - [facility] (01/20/2021) [facility] - Use Masks to Slow the Spread of COVID-19 - [facility] (02/16/2021) [facility] - Symptoms of COVID-19 - [facility] (09/26/2021) [facility] - COVID-19: What to Do If You Are Sick - [facility] (09/26/2021) [facility] Forms: - Medication Reconciliation Form [facility] - Antibiotic Education dillan - Prescription Opioid Use [facility] - Patient Portal Instructions [facility] - Leadership Thank You Letter [facility] Prescriptions: - Paxlovid 300 mg (150 mg x 2)-100 mg Oral Tablet, Dose Pack - take 1 dose pack ORAL route as directed on dose pack take ONE 150 mg tablet of [facility] nirmatrelvir with ONE 100 mg tablet of ritonavir twice daily for 5 days; 30 tablet; Refills: 0, Product Selection Permitted - Pepcid 40 mg Oral tablet - take 1 tablet ORAL route once daily for 21 days; 21 tablet; Refills: 0, Product [facility] Selection Permitted - Tessalon Perles 100 mg Oral capsule - take 2 capsule ORAL route every 8 hours As needed; 30 capsule; Refills: 0, [facility] Product Selection Permitted - Zithromax 500 mg Oral Tablet - take 1 tablet ORAL route once daily for 5 days; 5 tablet; Refills: 0, Product [facility] Selection Permitted Signatures: Dispatcher [employer] Preston Calhoun MD MD cha Bryson, James RN RN jb4 Geri Montoya RN RN cm10 Corrections: (The following items were deleted from the chart) : 12:18 Influenza Screen (A \T\ B)+BA.LAB.BRZ ordered. EDMS EDMS 12:18 SARS-COV-2 Antigen Rapid+I.LAB.BRZ ordered. EDMS EDMS : 12:18 Group A Streptococcus Rapid Sc+BA.LAB.BRZ ordered. EDMS EDMS
[2024-08-12 13:19] VITALS: BP 125/83; TEMP 98.1; O2SAT 100
== END 2024-08-12 13:15 | disposition home or self-care (01) ==
LOC: ER 11:12
DX: U07.1 COVID-19 (principal); J06.9 Acute upper respiratory infection, unspecified
CPT/HCPCS: 87070; 36415; 87081; 87804 ×2; 87811; J8540

== ENCOUNTER 2024-10-21 12:09 | Emergency (ER) | payer MEDICAID, SELFPAY ==
--- OUTSIDE RECORDS SUMMARY | 2024-10-21 12:25 | XMS REPORT | Continuity of Care Document ---
Author Name Unknown Address [address] [facility] [address] [place] [address] [facility] Address [address] [facility] [address] [place] [address] Care Team Providers Care Preschool Director Name Role Phone KAYLA GRIMES Primary Care Physician Unavailable KADEN ANDREW Attending Clinician Unavailable ALENA MIN Attending Clinician Unavailable SARAH LUCIANO Attending Clinician Unavailable Doctor Unassigned, [facility] Attending Clinician U navailable Lab, Ang - Db Attending Clinician Unavailable Sarah Luciano PA-C Attending Clinician [phone] UNKNOWN, ATTENDING Attending Clinician Unavailab HOWARD Mari Attending Clinician Unavailable Sully Espinosa LVN Attending Clinician UnavailAlena Berg Attending Clinician [phone] VIJAY BERMAN Attending Clinician Unavailable VIJAY BERMAN Attending Clinician Unavailable Vijay Berman MD Attending Clinician [phone] MAGALI FERRER Attending Clinician Unavailable MAGALI FERRER Attending Clinician Unavailable [facility], Infectious Attending Clinician [phone] SHAUNNA DONATO Attending Clinician Unavailable Kaden Andrew MD Attending Clinician [phone] Shaunna Ashley Attending Clinician [phone] Kayla Grimes MD Attending Clinician KAYLA GRIMES Attending Clinician Adalgisa Kathy Jeter Attending Clinician + [phone] Kayla Grimes MD Attending Clinician KATHY LUX Attending Clinician Unavailab le Jatin, Attending Attending Clinician Unavailab EDDIE Strickland Attending Clinician Unav ailable Nicole Wooten Kvng Attending Clinician Unavaila jose Barber MA, Alexandrea A Attending Clinician Unavailab sena Rea TEA BLENDER, Sebastian F Attending Clinician Unavaila LORENA Carrera Attending Clinician UnavailLORENA Starkey Attending Clinician Unavailjeferson Davis MD, Eddie Hernández Attending Clinician + Doctor Unassigned, [facility] Attending Clinician U Lorena Quiñonez MD Attending Clinician [phone] ZOHRA PRATER Attending Clinician Unavailable Moi SOCIAL STAFF WORKER, Zohra Attending Clinician [phone] Arabella TAVAREZ, Val Attending Clinician UnavailDHARMESH Ribeiro Attending Clinician Unavailable Dharmesh Donahue Attending Clinician [phone] GORDON NORWOOD Attending Clinician Unavailable Gordon Norwood MD Attending Clinician [phone] BABATUNDE HERNÁNDEZ Attending Clinician Unavailable Tylor Newman MD Attending Clinician [phone] EDILIA NOLASCO Attending Clinician Unavailable Edilia Nolasco MD Attending Clinician [phone] Alena Johnson Attending Clinician [phone] SULMA VIZCARRA Attending Clinician Unav sharadable Sheila Magallanes LMSW Attending Clinician [phone] BREANNE BENAVIDES Attending Clinician Unavailable BREANNE BENAVIDES Attending Clinician Unavailable IVY THAKKAR Attending Clinician Unavaila Ivy Terrazas Attending Clinician [phone] AMARILIS BANUELOS Attending Clinician Unavailable Amarilis Banuelos NP Attending Clinician [phone] Kaden Andrew MD Attending Clinician [phone] PRIYANKA RIVERA Attending Clinician Unavailable Jena Veloz Attending Clinician U BERNARDO Mcconnell Attending Clinician Unavaila GAURAV Davison T Attending Clinician Unavailable Gaurav Mendenhall Attending Clinician [phone] Lab, Ang - Db Attending Clinician Unavailable Thi Trent DO Attending Clinician + [phone] Gianni SHULTZ Alvarez Carol Attending Clinician [phone] Raymundo Dexter MD Attending Clinician [phone] Daljit Velasco DO Attending Clinician [phone] DALJIT VELASCO Attending Clinician Unavailable VIJAY BERMAN Admitting Clinician Unavailable ZOHRA PRATER Admitting Clinician Unavailable DHARMESH HIGGINS Admitting Clinician Unavailable IVY THAKKAR Admitting Clinician UnavailAMARILIS Morelos Admitting Clinician Unavailable GAURAV ESPARZA Admitting Clinician Unavailable Raymundo Dexter MD Admitting Clinician [phone] Payers Payer Name Policy Type Policy Number Effective Date Expirati on Date Source [employer] [place] [id number] 2024 00:00:00 2024 00:00:00 MEDICAID PENDING PENDING 2020 00:00:00 Problems Condition Name Condition Details Condition Category Status Onset Date Resolution Date Last Treatment Date Treating Clinician Comments Source Stomachach e Stomachach e Disease Active 03-08 00:00: 00 [facility] Dysuria Dysuria Disease Active 11-06 00:00: 00 [facility] Cervical radiculopa thy Cervical radiculopa thy Disease Active 11-06 00:00: 00 [facility] Encounter to establish care Encounter to establish care Disease Active 08-07 00:00: 00 [facility] Epigastric pain Epigastric pain Disease Active 08-07 00:00: 00 [facility] Nausea Nausea Disease Active 08-07 00:00: 00 [facility] Anxiety and depression Anxiety and depression Disease Active 08-07 00:00: 00 [facility] Encounter to establish care Encounter to establish care Disease Active 08-07 00:00: 00 [facility] Vomiting Vomiting Disease Active 6-05 00:00: 00 [facility] No known active problems No known active problems Disease [facility] Allergies, Adverse Reactions, Alerts Allergy Name Allergy Type Status Severity Reaction(s) Onset Date Inactive Date Treating Clinician Comments Source NO KNOWN ALLERGIE S Drug Class Active [facility] Social History Social Habit Start Date Stop Date Quantity Comments Source Gender identity [facility] Sexual orientation [facility] History of tobacco use Cigarette Smoker [facility] Tobacco use and exposure 2024-03-17 00:00:00 2024-03-17 00:00:00 Smokeless tobacco non-user [facility] Alcoholic beverage intake 2024-03-17 00:00:00 2024-03-17 00:00:00 Ex-drinker (finding) [facility] Cigarettes smoked current (pack per day) - Reported 2024-03-17 00:00:00 2024-03-17 00:00:00 [facility] Cigarette pack-years 2024-03-17 00:00:00 2024-03-17 00:00:00 [facility] Alcohol intake 2023-08-13 00:00:00 2023-08-13 00:00:00 Ex-drinker (finding) [facility] History of Social function 2023-05-16 00:00:00 2023-05-16 00:00:00 [facility] Exposure to SARS-CoV-2 (event) 2022-11-25 00:00:00 2022-12-05 09:48:00 Not sure [facility] Tobacco Comment 2022-08-07 00:00:00 2022-08-07 00:00:00 quit 3 months ago [facility] Sex assigned at 1995 00:00:00 1995 00:00:00 [facility] Smoking Status Start Date Stop Date Source Ex-smoker 2024-03-17 00:00:00 2024-03-17 00:00:00 [facility] Current every day smoker 2017-06-22 00:00:00 [facility] Medications Ordered Medication Name Filled Medication Name Start Date Stop Date Current Medication? Ordering Clinician Indication Dosage Frequency Signature (SIG) Comments Components Source valACYclovi r (VALTREX) 1 gram tablet -19 00:00: 00 10-04 04:59 :00 Yes [id number] 1g Take 1 tablet by mouth in the morning and 1 tablet in the evening. Do all this for 10 days. [facility] ondansetron 4 mg disintegrat ing tablet 07-17 00:00: 00 Yes [id number] 4mg Take 1 tablet by mouth every 4 (four) hours as needed for Nausea and Vomiting (N/V). [facility] naproxen 500 mg tablet 07-17 00:00: 00 07-28 05:59 :00 No [id number] 500mg Take 1 tablet by mouth in the morning and 1 tablet in the evening. Take with meals. Do all this for 10 days. [facility] tamsulosin (FLOMAX) 0.4 mg 24 hr capsule 03-17 00:00: 00 Yes [id number] .4mg Take 1 capsule by mouth in the morning. [facility] gabapentin 300 mg capsule 03-17 00:00: 00 04-08 04:59 :00 No [id number] 300mg Take 1 capsule by mouth in the morning and 1 capsule at noon and 1 capsule in the evening. Do all this for 21 days. [facility] pantoprazol e 40 mg EC tablet 03-03 00:00: 00 Yes [id number] 40mg Take 1 tablet by mouth in the morning. MUST BE SEEN FOR FURTHER REFILLS [facility] permethrin 5 % cream 12-19 00:00: 00 Yes APPLY CREAM FROM HEAD TO FEET, LEAVE ON FOR 8-14 HOURS THEN WASH WITH SOAP AND WATER. REPEAT OF LIVING MITES PRESENT 14 DAYS AFTER INITIAL TREATMENT [facility] valACYclovi r 500 mg tablet 12-19 00:00: 00 12-25 04:59 :00 No [id number] 1000mg Take 2 tablets by mouth in the morning for 5 days. [facility] ibuprofen 800 mg tablet 12-16 00:00: 00 Yes TAKE 1 TABLET BY MOUTH EVERY 8 HOURS WITH FOOD AND DRINK PLENTY OF WATER NEEDED FOR PAIN [facility] valACYclovi r (VALTREX) 500 mg tablet 12-04 00:00: 00 Yes [id number] 500mg Take 1 tablet by mouth in the morning and 1 tablet in the evening. [facility] chlorhexidi ne 0.12 % mouthwash 12-04 00:00: 00 Yes RINSE MOUTTH WITH 1 CAP FULL OF LIQUID AFTER BRUSHING TWICE DAILY. SWISH FOR APPROXIMAT BRET 60 SECONDS AND SPIT. [facility] pantoprazol e 40 mg EC tablet 10-08 00:00: 00 03-02 00:00 :00 No [id number] 40mg Take 1 tablet by mouth in the morning. [facility] famotidine (PEPCID AC) tablet 20 mg 08-12 23:00: 00 08-12 22:59 :00 No 20mg 20 mg, Oral, ONCE, 1 dose, On Sat08/12/23 at 1700, [facility] ondansetron (ZOFRAN-ODT ) disintegrat ing tablet 4 mg 08-12 22:56: 00 08-12 22:59 :00 No 4mg 4 mg, Oral, ONCE, 1 dose, [facility] Sat08/12/23 [facility] 1700[facility]diph enhydrAMINE :lidocaine 2 % viscous 1:1:1 (FIRST-MOUT HWASH BLM) oral suspension 15 mL 08-12 22:30: 00 08-12 22:54 :00 No 15mL 15 mL, Oral, ONCE, 1 dose, On Sat08/12/23 at 1630, Routine [facility] aluminum & magnesium hydroxide-s imethicone 400-400-40 mg/5 mL suspension 08-12 00:00: 00 Yes [id number] 10mL Take 10 mL by mouth every 8 (eight) hours as needed for Indigestio n. [facility] ondansetron 4 mg disintegrat ing tablet 2 00:00: 00 07-17 00:00 :00 No [id number] 4mg Take 1 tablet by mouth every 8 (eight) hours as needed for Nausea and Vomiting (N/V). [facility] methylPREDN ISolone 4 mg tablets 2022-07 00:00: 00 07-29 00:00 :00 No [id number] Take by mouth SEE-INSTRU CTIONS. follow package directions [facility] cyclobenzap rine 5 mg tablet 2022-07 00:00: 00 07-20 05:59 :00 No [id number] 5mg Take 1 tablet by mouth in the morning and 1 tablet at noon and 1 tablet in the evening. Do all this for 14 days. [facility] SERTraline 100 mg tablet 2022-07 00:00: 00 Yes 100mg Take 1 tablet by mouth at bedtime. [facility] ARIPiprazol e 5 mg tablet 2022-07 00:00: 00 Yes 5mg Take 1 tablet by mouth at bedtime. [facility] busPIRone 30 mg tablet 2022-07 024 10:55: 16 Yes 30mg Take 1 tablet by mouth in the morning and 1 tablet at noon and 1 tablet in the evening. [facility] valACYclovi r 500 mg tablet 2022-0717 16:09: 58 04-23 00:00 :00 No 500mg Take 1 tablet by mouth in the morning. [facility] valACYclovi r 500 mg tablet 2022-07 017 00:00: 00 04-29 04:59 :00 No [id number] 500mg Take 1 tablet by mouth in the morning and 1 tablet in the evening. Do all this for 5 days. [facility] metroNIDAZO LE 500 mg tablet 2022-07 017 00:00: 00 04-24 04:59 :00 No [id number] 2000mg Take 4 tablets by mouth once now for 1 dose. [facility] pantoprazol e 40 mg EC tablet 9-05 00:00: 00 10-08 00:00 :00 No [id number] 40mg Take 1 tablet by mouth in the morning. [facility] SERTraline 50 mg tablet 02-07 00:00: 00 Yes 50mg Take 1 tablet by mouth at bedtime. [facility] SERTraline 50 mg tablet 02-07 00:00: 00 07-29 00:00 :00 No 100mg Take 2 tablets by mouth at bedtime. [facility] busPIRone 10 mg tablet 715 00:00: 00 Yes 10mg Take 1 tablet by mouth in the morning and 1 tablet in the evening. [facility] busPIRone 10 mg tablet 15 00:00: 00 04-30 00:00 :00 No 15mg Take 1.5 tablets by mouth in the morning and 1.5 tablets in the evening. [facility] Methylcellu lose, with Sugar, (CITRUCEL, SUCROSE,) powder 01-03 00:00: 00 Yes [id number] 3g Take 3 g by mouth in the morning and 3 g in the evening. [facility] Methylcellu lose, with Sugar, (CITRUCEL, SUCROSE,) powder 01-03 00:00: 00 03-12 00:00 :00 No [id number] 3g Take 3 g by mouth in the morning and 3 g in the evening. [facility] omeprazole 40 mg capsule 01-03 00:00: 00 03-12 00:00 :00 No [id number] 40mg Take 1 capsule by mouth 2 (two) times daily before breakfast and dinner. [facility] Phenyleph-P ramoxin-Gly cr-W.Pet 0.25-1 % Crea 01-03 00:00: 00 03-12 00:00 :00 No [id number] Apply to area(s) 2 (two) times daily. [facility] pantoprazol e 40 mg EC tablet 12-31 00:00: 00 01-03 00:00 :00 No [id number] 40mg Take 1 tablet by mouth in the morning. [facility] SERTraline (ZOLOFT) 25 mg tablet 12-13 00:00: 00 03-12 00:00 :00 No [id number] 12.5mg Take 0.5 tablets by mouth in the morning. [facility] busPIRone 5 mg tablet 12-12 00:00: 00 03-12 00:00 :00 No [id number] 5mg Take 1 tablet by mouth in the morning and 1 tablet in the evening. [facility] SERTraline (ZOLOFT) 50 mg tablet 12-12 00:00: 00 12-13 00:00 :00 No [id number] Take 0.5 tablets by mouth daily for 8 days, THEN 1 tablet daily for 30 days. [facility] acetaminoph en (TYLENOL) tablet 1,000 mg 12-12 00:00: 00 12-11 23:38 :00 No 1000mg 1,000 mg, Oral, ONCE, 1 dose, On Sat12/11/22 at 1900, Routine [facility] NaCl 0.9% (NS) bolus infusion 1,000 mL 12-11 23:45: 00 12-12 01:19 :00 No 1000mL at 999 mL/hr, 1,000 mL, IV Infusion, ONCE, 1 dose, On Sat12/11/22 at 1845, ANNA [facility] ketorolac (TORADOL) injection 30 mg 12-11 23:45: 00 12-11 23:38 :00 No 30mg 30 mg, Slow IV Push, ONCE, 1 dose, On Sat12/11/22 at 1845, ANNA [facility] hydrOXYzine (ATARAX) tablet 50 mg 12-11 23:00: 00 12-11 23:38 :00 No 50mg 50 mg, Oral, ONCE, 1 dose, On Sat12/11/22 at 1800, ANNA [facility] hydrOXYzine 50 mg tablet 12-11 00:00: 00 Yes [id number] 50mg Take 1 tablet by mouth every 8 (eight) hours as needed for Anxiety. [facility] ibuprofen 600 mg tablet 12-11 00:00: 00 01-03 00:00 :00 No [id number] 600mg Take 1 tablet by mouth every 6 (six) hours as needed for Pain (scale 4-6). [facility] ketorolac (TORADOL) injection 30 mg 12-08 23:45: 00 12-08 23:01 :00 No 30mg 30 mg, Slow IV Push, ONCE, 1 dose, On Sat12/08/22 at 1845, Routine [facility] NaCl 0.9% (NS) IV infusion 1,000 mL 12-08 21:45: 00 Yes 1000mL at 999 mL/hr, Intravenou s, CONTINUOUS , Starting on Sat12/08/22 at 1645, Until Discontinu ed, ANNA [facility] gabapentin 300 mg capsule 12-05 00:00: 00 12-27 04:59 :00 No [id number] 300mg Take 1 capsule by mouth in the morning and 1 capsule at noon and 1 capsule in the evening. Do all this for 21 days. [facility] valACYclovi r 500 mg tablet 11-27 15:38: 27 Yes 500mg Take 1 tablet by mouth in the morning. [facility] ketorolac (TORADOL) injection 30 mg 11-14 02:30: 00 11-14 01:44 :00 No 30mg 30 mg, Slow IV Push, ONCE, 1 dose, On Sat11/13/22 at 2130, ANNA [facility] ibuprofen 800 mg tablet 11-13 00:00: 00 12-12 00:00 :00 No [id number] 800mg Take 1 tablet by mouth in the morning and 1 tablet at noon and 1 tablet in the evening. Take with meals. [facility] cyclobenzap rine 5 mg tablet 11-06 00:00: 00 Yes [id number] 5mg Take 1 tablet by mouth in the morning and 1 tablet at noon and 1 tablet in the evening. [facility] methylPREDN ISolone (MEDROL, TRAV,) 4 mg tablets 11-06 00:00: 00 11-12 04:59 :00 No [id number] Take by mouth SEE-INSTRU CTIONS for 5 days. follow package directions [facility] pantoprazol e 40 mg EC tablet 10-23 00:00: 00 12-31 00:00 :00 No [id number] 40mg Take 1 tablet by mouth in the morning. [facility] famotidine (PEPCID ORAL) 08-07 13:33: 27 08-07 00:00 :00 No Take by mouth. [facility] ondansetron (ZOFRAN) 4 mg tablet 08-07 00:00: 00 Yes [id number] 4mg Take 1 tablet by mouth every 8 (eight) hours as needed for Nausea and Vomiting (N/V). [facility] pantoprazol e 40 mg EC tablet 08-07 00:00: 00 10-23 00:00 :00 No [id number] 40mg Take 1 tablet by mouth in the morning. [facility] famotidine 20 mg in NS 50 ml (PEPCID) 20 mg/50 mL Piggyback 20 mg 12-28 19:45: 00 12-28 19:31 :00 No 20mg 20 mg, IV Piggyback, ONCE, 1 dose, Sat12/28/20 at 1445, 50 mL [facility] NaCl 0.9% (NS) bolus infusion 1,000 mL 12-28 19:30: 00 12-28 19:31 :00 No 1000mL at 999 mL/hr, 1,000 mL, IV Infusion, ONCE, 1 dose, Sat12/28/20 at 1430, STAT [facility] iopamidol (ISOVUE 370-500 mL) injection 120 mL 12-28 18:40: 00 12-28 18:40 :00 No [id number] 120mL 120 mL, Intravenou s, ONCE, 1 dose, Sat12/28/20 at 1400, Routine [facility] ondansetron (ZOFRAN (PF)) injection 4 mg 12-28 18:30: 00 12-28 17:42 :00 No 4mg 4 mg, Slow IV Push, ONCE, 1 dose, Sat12/28/20 at 1330, ANNA [facility] ondansetron (ZOFRAN ODT) 4 mg disintegrat ing tablet 12-28 00:00: 00 08-07 00:00 :00 No [id number] 4mg Take 1 tablet by mouth every 8 (eight) hours as needed for Nausea and Vomiting (N/V). [facility] enoxaparin (LOVENOX) injection 30 mg 12-10 22:00: 00 Yes 30mg 30 mg, Subcutaneo us, DAILY, First dose on 12/10/20 at 1700, Until Discontinu ed, Routine [facility] lactated ringers IV infusion 1,000 mL 12-10 16:00: 00 Yes 1000mL at 100 mL/hr, 1,000 mL, IV Infusion, CONTINUOUS , Starting 12/10/20 at 1100, Until Discontinu ed, Routine [facility] acetaminoph en (TYLENOL) tablet 650 mg 12-10 14:58: 36 Yes 650mg 650 mg, Oral, Q6HPRN, Starting 12/10/20 at 0958, Until Discontinu ed, Routine, Pain (scale 1-3) [facility] ondansetron (ZOFRAN (PF)) injection 4 mg 12-10 13:00: 00 12-10 12:15 :00 No 4mg 4 mg, Slow IV Push, ONCE, 1 dose, 12/10/20 at 0800, ANNA [facility] NaCl 0.9% (NS) bolus infusion 1,000 mL 05 12:00: 12-10 12:15 :00 No 1000mL at 999 mL/hr, 1,000 mL, IV Infusion, ONCE, 1 dose, 12/10/20 at 0700, ANNA [facility] chlorhexidi ne 0.12 % mouthwash 11-21 00:00: 00 12-10 00:00 :00 No [id number] 15mL Swish and spit out 15 mL 2 (two) times daily. [facility] methylPREDN ISolone (MEDROL, TRAV,) 4 mg tablets 11-21 00:00: 12-10 00:00 :00 No [id number] Take by mouth SEE-INSTRU CTIONS. follow package directions [facility] acetaminoph en-codeine (TYLENOL-CO DEINE #3) 300-30 mg tablet 11-21 00:00: 00 12-10 00:00 :00 No [id number]{tbl} Take 1 tablet by mouth every 4 (four) hours as needed for Pain (scale 7-10). Indication s: acute pain [facility] ondansetron 4 mg disintegrat ing tablet 11-21 00:00: 00 12-10 00:00 :00 No [id number] 4mg Take 1 tablet by mouth every 8 (eight) hours as needed for Nausea and Vomiting (N/V). [facility] clindamycin 150 mg capsule 11-21 00:00: 00 11-29 04:59 :00 No [id number] 300mg Take 2 capsules by mouth 4 (four) times daily for 7 days. [facility] azithromyci n (ZITHROMAX Z-TRAV) 250 mg tablet 4-10 00:00: 00 12-10 00:00 :00 No [id number] 250mg Take 1 tablet by mouth SEE-INSTRU CTIONS. Take 500 mg day 1, then 250 mg days 2 to 5. [facility] dextrometho rphan-guaif enesin 10-100 mg/5 mL solution 4-10 00:00: 00 12-10 00:00 :00 No [id number] 10mL Take 10 mL by mouth every 6 (six) hours as needed for Cough. [facility] ibuprofen 800 mg tablet 4-10 00:00: 00 12-10 00:00 :00 No [id number] 800mg Take 1 tablet by mouth every 8 (eight) hours. [facility] cyclobenzap rine 5 mg tablet 2017-07 0 00:00: 00 12-10 00:00 :00 No 5mg Take 1 tablet by mouth 3 (three) times daily. [facility] CATAFLAM 50 mg tablet 2014-07 00:00: 00 12-10 00:00 :00 No 50mg Take 1 Tab by mouth 3 (three) times daily. [facility] Immunizations Ordered Immunization Name Filled Immunization Name Date Status Comments Source Hepatitis A Adult 2011-08-29 00:00:00 Completed [facility] Hepatitis A Adult 2011-08-29 00:00:00 Completed [facility] Hepatitis A Adult 2011-08-29 00:00:00 Completed [facility] Hepatitis A Adult 2011-08-29 00:00:00 Completed [facility] Hepatitis A Adult 2011-08-29 00:00:00 Completed [facility] Hepatitis A Adult 2011-08-29 00:00:00 Completed [facility] Hepatitis A Adult 2011-08-29 00:00:00 Completed [facility] Hepatitis A Adult 2011-08-29 00:00:00 Completed [facility] Hepatitis A Adult 2011-08-29 00:00:00 Completed [facility] Hepatitis A Adult 2011-08-29 00:00:00 Completed Hepatitis A Adult 2011-08-29 00:00:00 Completed Hepatitis A Adult 2011-08-29 00:00:00 Completed [facility] Hepatitis A Adult 2011-08-29 00:00:00 Completed [facility] Hepatitis A Adult 2011-08-29 00:00:00 Completed [facility] Hepatitis A Adult 2011-08-29 00:00:00 Completed [facility] Hepatitis A Adult 2011-08-29 00:00:00 Completed [facility] Hepatitis A Adult 2011-08-29 00:00:00 Completed [facility] Hepatitis A Adult 2011-08-29 00:00:00 Completed [facility] Hepatitis A Adult 2011-08-29 00:00:00 Completed [facility] Hepatitis A Adult 2011-08-29 00:00:00 Completed [facility] Hepatitis A Adult 2011-08-29 00:00:00 Completed [facility] Meningococcal Polysaccharide (groups A, C, Y and W-135) conjugate vaccine (MCV4P) 2009-02-28 00:00:00 Completed [facility] TDAP 2009-02-28 00:00:00 Completed [facility] Varicella (varivax)(chicken pox) 2009-02-28 00:00:00 Completed [facility] HEPATITIS A 2009-02-28 00:00:00 Completed [facility] HEPATITIS A 2009-02-28 00:00:00 Completed [facility] Meningococcal Polysaccharide (groups A, C, Y and W-135) conjugate vaccine (MCV4P) 2009-02-28 00:00:00 Completed [facility] TDAP 2009-02-28 00:00:00 Completed [facility] Varicella (varivax)(chicken pox) 2009-02-28 00:00:00 Completed [facility] HEPATITIS A 2009-02-28 00:00:00 Completed [facility] Meningococcal Polysaccharide (groups A, C, Y and W-135) conjugate vaccine (MCV4P) 2009-02-28 00:00:00 Completed [facility] TDAP 2009-02-28 00:00:00 Completed [facility] Varicella (varivax)(chicken pox) 2009-02-28 00:00:00 Completed [facility] HEPATITIS A 2009-02-28 00:00:00 Completed [facility] Meningococcal Polysaccharide (groups A, C, Y and W-135) conjugate vaccine (MCV4P) 2009-02-28 00:00:00 Completed [facility] TDAP 2009-02-28 00:00:00 Completed [facility] Varicella (varivax)(chicken pox) 2009-02-28 00:00:00 Completed [facility] HEPATITIS A 2009-02-28 00:00:00 Completed [facility] Meningococcal Polysaccharide (groups A, C, Y and W-135) conjugate vaccine (MCV4P) 2009-02-28 00:00:00 Completed [facility] TDAP 2009-02-28 00:00:00 Completed [facility] Varicella (varivax)(chicken pox) 2009-02-28 00:00:00 Completed [facility] HEPATITIS A 2009-02-28 00:00:00 Completed [facility] Meningococcal Polysaccharide (groups A, C, Y and W-135) conjugate vaccine (MCV4P) 2009-02-28 00:00:00 Completed [facility] TDAP 2009-02-28 00:00:00 Completed [facility] Varicella (varivax)(chicken pox) 2009-02-28 00:00:00 Completed [facility] HEPATITIS A 2009-02-28 00:00:00 Completed [facility] Meningococcal Polysaccharide (groups A, C, Y and W-135) conjugate vaccine (MCV4P) 2009-02-28 00:00:00 Completed [facility] TDAP 2009-02-28 00:00:00 Completed [facility] Varicella (varivax)(chicken pox) 2009-02-28 00:00:00 Completed [facility] HEPATITIS A 2009-02-28 00:00:00 Completed [facility] Meningococcal Polysaccharide (groups A, C, Y and W-135) conjugate vaccine (MCV4P) 2009-02-28 00:00:00 Completed [facility] TDAP 2009-02-28 00:00:00 Completed [facility] Varicella (varivax)(chicken pox) 2009-02-28 00:00:00 Completed [facility] HEPATITIS A 2009-02-28 00:00:00 Completed [facility] Meningococcal Polysaccharide (groups A, C, Y and W-135) conjugate vaccine (MCV4P) 2009-02-28 00:00:00 Completed [facility] TDAP 2009-02-28 00:00:00 Completed [facility] Varicella (varivax)(chicken pox) 2009-02-28 00:00:00 Completed [facility] HEPATITIS A 2009-02-28 00:00:00 Completed Meningococcal [...] 00:00:00 Completed HEPATITIS A 2009-02-28 00:00:00 Completed [facility] Meningococcal Polysaccharide (groups A, C, Y and W-135) conjugate vaccine (MCV4P) 2009-02-28 00:00:00 Completed [facility] TDAP 2009-02-28 00:00:00 Completed [facility] Varicella (varivax)(chicken pox) 2009-02-28 00:00:00 Completed [facility] HEPATITIS A 2009-02-28 00:00:00 Completed [facility] Meningococcal Polysaccharide (groups A, C, Y and W-135) conjugate vaccine (MCV4P) 2009-02-28 00:00:00 Completed [facility] TDAP 2009-02-28 00:00:00 Completed [facility] Varicella (varivax)(chicken pox) 2009-02-28 00:00:00 Completed [facility] HEPATITIS A 2009-02-28 00:00:00 Completed [facility] Meningococcal Polysaccharide (groups A, C, Y and W-135) conjugate vaccine (MCV4P) 2009-02-28 00:00:00 Completed [facility] TDAP 2009-02-28 00:00:00 Completed [facility] Varicella (varivax)(chicken pox) 2009-02-28 00:00:00 Completed [facility] HEPATITIS A 2009-02-28 00:00:00 Completed [facility] Meningococcal Polysaccharide (groups A, C, Y and W-135) conjugate vaccine (MCV4P) 2009-02-28 00:00:00 Completed [facility] TDAP 2009-02-28 00:00:00 Completed [facility] Varicella (varivax)(chicken pox) 2009-02-28 00:00:00 Completed [facility] HEPATITIS A 2009-02-28 00:00:00 Completed [facility] Meningococcal Polysaccharide (groups A, C, Y and W-135) conjugate vaccine (MCV4P) 2009-02-28 00:00:00 Completed [facility] TDAP 2009-02-28 00:00:00 Completed [facility] Varicella (varivax)(chicken pox) 2009-02-28 00:00:00 Completed [facility] HEPATITIS A 2009-02-28 00:00:00 Completed [facility] Meningococcal Polysaccharide (groups A, C, Y and W-135) conjugate vaccine (MCV4P) 2009-02-28 00:00:00 Completed [facility] TDAP 2009-02-28 00:00:00 Completed [facility] Varicella (varivax)(chicken pox) 2009-02-28 00:00:00 Completed [facility] HEPATITIS A 2009-02-28 00:00:00 Completed [facility] Meningococcal Polysaccharide (groups A, C, Y and W-135) conjugate vaccine (MCV4P) 2009-02-28 00:00:00 Completed [facility] TDAP 2009-02-28 00:00:00 Completed [facility] Varicella (varivax)(chicken pox) 2009-02-28 00:00:00 Completed [facility] HEPATITIS A 2009-02-28 00:00:00 Completed [facility] Meningococcal Polysaccharide (groups A, C, Y and W-135) conjugate vaccine (MCV4P) 2009-02-28 00:00:00 Completed [facility] TDAP 2009-02-28 00:00:00 Completed [facility] Varicella (varivax)(chicken pox) 2009-02-28 00:00:00 Completed [facility] HEPATITIS A 2009-02-28 00:00:00 Completed [facility] Meningococcal Polysaccharide (groups A, C, Y and W-135) conjugate vaccine (MCV4P) 2009-02-28 00:00:00 Completed [facility] TDAP 2009-02-28 00:00:00 Completed [facility] Varicella (varivax)(chicken pox) 2009-02-28 00:00:00 Completed [facility] HEPATITIS A 2009-02-28 00:00:00 Completed [facility] Meningococcal Polysaccharide (groups A, C, Y and W-135) conjugate vaccine (MCV4P) 2009-02-28 00:00:00 Completed [facility] TDAP 2009-02-28 00:00:00 Completed [facility] Varicella (varivax)(chicken pox) 2009-02-28 00:00:00 Completed [facility] Poliovirus, Live, Oral, Trivalent 1999-04-26 00:00:00 Completed [facility] DTaP, Unspecified Formulation 1999-04-26 00:00:00 Completed [facility] Hep B, Adol or Pedi Dosage 1999-04-26 00:00:00 Completed [facility] DTaP, Unspecified Formulation 1999-04-26 00:00:00 Completed [facility] Hep B, Adol or Pedi Dosage 1999-04-26 00:00:00 Completed [facility] Poliovirus, Live, Oral, Trivalent 1999-04-26 00:00:00 Completed [facility] DTaP, Unspecified Formulation 1999-04-26 00:00:00 Completed [facility] Hep B, Adol or Pedi Dosage 1999-04-26 00:00:00 Completed [facility] Poliovirus, Live, Oral, Trivalent 1999-04-26 00:00:00 Completed [facility] DTaP, Unspecified Formulation 1999-04-26 00:00:00 Completed [facility] Hep B, Adol or Pedi Dosage 1999-04-26 00:00:00 Completed [facility] Poliovirus, Live, Oral, Trivalent 1999-04-26 00:00:00 Completed [facility] DTaP, Unspecified Formulation 1999-04-26 00:00:00 Completed [facility] Hep B, Adol or Pedi Dosage 1999-04-26 00:00:00 Completed [facility] Poliovirus, Live, Oral, Trivalent 1999-04-26 00:00:00 Completed [facility] DTaP, Unspecified Formulation 1999-04-26 00:00:00 Completed [facility] Hep B, Adol or Pedi Dosage 1999-04-26 00:00:00 Completed [facility] Poliovirus, Live, Oral, Trivalent 1999-04-26 00:00:00 Completed [facility] DTaP, Unspecified Formulation 1999-04-26 00:00:00 Completed [facility] Hep B, Adol or Pedi Dosage 1999-04-26 00:00:00 Completed [facility] Poliovirus, Live, Oral, Trivalent 1999-04-26 00:00:00 Completed [facility] DTaP, Unspecified Formulation 1999-04-26 00:00:00 Completed [facility] Hep B, Adol or Pedi Dosage 1999-04-26 00:00:00 Completed [facility] Poliovirus, Live, Oral, Trivalent 1999-04-26 00:00:00 Completed [facility] DTaP, Unspecified Formulation 1999-04-26 00:00:00 Completed [facility] Hep B, Adol or Pedi Dosage 1999-04-26 00:00:00 Completed [facility] Poliovirus, Live, Oral, Trivalent 1999-04-26 00:00:00 Completed [facility] DTaP, Unspecified Formulation 1999-04-26 00:00:00 Completed Hep B, Adol or Pedi Dosage 1999-04-26 00:00:00 Completed Poliovirus, Live, Oral, Trivalent 1999-04-26 00:00:00 Completed DTaP, Unspecified Formulation 1999-04-26 00:00:00 Completed Hep B, Adol or Pedi Dosage 1999-04-26 00:00:00 Completed Poliovirus, Live, Oral, Trivalent 1999-04-26 00:00:00 Completed DTaP, Unspecified Formulation 1999-04-26 00:00:00 Completed [facility] Hep B, Adol or Pedi Dosage 1999-04-26 00:00:00 Completed [facility] Poliovirus, Live, Oral, Trivalent 1999-04-26 00:00:00 Completed [facility] DTaP, Unspecified Formulation 1999-04-26 00:00:00 Completed [facility] Hep B, Adol or Pedi Dosage 1999-04-26 00:00:00 Completed [facility] Poliovirus, Live, Oral, Trivalent 1999-04-26 00:00:00 Completed [facility] DTaP, Unspecified Formulation 1999-04-26 00:00:00 Completed [facility] Hep B, Adol or Pedi Dosage 1999-04-26 00:00:00 Completed [facility] Poliovirus, Live, Oral, Trivalent 1999-04-26 00:00:00 Completed [facility] DTaP, Unspecified Formulation 1999-04-26 00:00:00 Completed [facility] Hep B, Adol or Pedi Dosage 1999-04-26 00:00:00 Completed [facility] Poliovirus, Live, Oral, Trivalent 1999-04-26 00:00:00 Completed [facility] DTaP, Unspecified Formulation 1999-04-26 00:00:00 Completed [facility] Hep B, Adol or Pedi Dosage 1999-04-26 00:00:00 Completed [facility] Poliovirus, Live, Oral, Trivalent 1999-04-26 00:00:00 Completed [facility] DTaP, Unspecified Formulation 1999-04-26 00:00:00 Completed [facility] Hep B, Adol or Pedi Dosage 1999-04-26 00:00:00 Completed [facility] Poliovirus, Live, Oral, Trivalent 1999-04-26 00:00:00 Completed [facility] DTaP, Unspecified Formulation 1999-04-26 00:00:00 Completed [facility] Hep B, Adol or Pedi Dosage 1999-04-26 00:00:00 Completed [facility] Poliovirus, Live, Oral, Trivalent 1999-04-26 00:00:00 Completed [facility] DTaP, Unspecified Formulation 1999-04-26 00:00:00 Completed [facility] Hep B, Adol or Pedi Dosage 1999-04-26 00:00:00 Completed [facility] Poliovirus, Live, Oral, Trivalent 1999-04-26 00:00:00 Completed [facility] DTaP, Unspecified Formulation 1999-04-26 00:00:00 Completed [facility] Hep B, Adol or Pedi Dosage 1999-04-26 00:00:00 Completed [facility] Poliovirus, Live, Oral, Trivalent 1999-04-26 00:00:00 Completed [facility] DTaP, Unspecified Formulation 1999-04-26 00:00:00 Completed [facility] Hep B, Adol or Pedi Dosage 1999-04-26 00:00:00 Completed [facility] Poliovirus, Live, Oral, Trivalent 1999-04-26 00:00:00 Completed [facility] DTaP, Unspecified Formulation 1998-05-04 00:00:00 Completed [facility] DTaP, Unspecified Formulation 1998-05-04 00:00:00 Completed [facility] DTaP, Unspecified Formulation 1998-05-04 00:00:00 Completed [facility] DTaP, Unspecified Formulation 1998-05-04 00:00:00 Completed [facility] DTaP, Unspecified Formulation 1998-05-04 00:00:00 Completed [facility] DTaP, Unspecified Formulation 1998-05-04 00:00:00 Completed [facility] DTaP, Unspecified Formulation 1998-05-04 00:00:00 Completed [facility] DTaP, Unspecified Formulation 1998-05-04 00:00:00 Completed [facility] DTaP, Unspecified Formulation 1998-05-04 00:00:00 Completed [facility] DTaP, Unspecified Formulation 1998-05-04 00:00:00 Completed DTaP, Unspecified Formulation 1998-05-04 00:00:00 Completed DTaP, Unspecified Formulation 1998-05-04 00:00:00 Completed [facility] DTaP, Unspecified Formulation 1998-05-04 00:00:00 Completed [facility] DTaP, Unspecified Formulation 1998-05-04 00:00:00 Completed [facility] DTaP, Unspecified Formulation 1998-05-04 00:00:00 Completed [facility] DTaP, Unspecified Formulation 1998-05-04 00:00:00 Completed [facility] DTaP, Unspecified Formulation 1998-05-04 00:00:00 Completed [facility] DTaP, Unspecified Formulation 1998-05-04 00:00:00 Completed [facility] DTaP, Unspecified Formulation 1998-05-04 00:00:00 Completed [facility] DTaP, Unspecified Formulation 1998-05-04 00:00:00 Completed [facility] DTaP, Unspecified Formulation 1998-05-04 00:00:00 Completed [facility] Haemophilus influenzae type b vaccine, conjugate unspecified formulation 1998-03-03 00:00:00 Completed [facility] MMR 1998-03-03 00:00:00 Completed [facility] Poliovirus, Live, Oral, Trivalent 1998-03-03 00:00:00 Completed [facility] DTaP, Unspecified Formulation 1998-03-03 00:00:00 Completed [facility] Hep B, Adol or Pedi Dosage 1998-03-03 00:00:00 Completed [facility] DTaP, Unspecified Formulation 1998-03-03 00:00:00 Completed [facility] Hep B, Adol or Pedi Dosage 1998-03-03 00:00:00 Completed [facility] Haemophilus influenzae type b vaccine, conjugate unspecified formulation 1998-03-03 00:00:00 Completed [facility] MMR 1998-03-03 00:00:00 Completed [facility] Poliovirus, Live, Oral, Trivalent 1998-03-03 00:00:00 Completed [facility] DTaP, Unspecified Formulation 1998-03-03 00:00:00 Completed [facility] Hep B, Adol or Pedi Dosage 1998-03-03 00:00:00 Completed [facility] Haemophilus influenzae type b vaccine, conjugate unspecified formulation 1998-03-03 00:00:00 Completed [facility] MMR 1998-03-03 00:00:00 Completed [facility] Poliovirus, Live, Oral, Trivalent 1998-03-03 00:00:00 Completed [facility] DTaP, Unspecified Formulation 1998-03-03 00:00:00 Completed [facility] Hep B, Adol or Pedi Dosage 1998-03-03 00:00:00 Completed [facility] Haemophilus influenzae type b vaccine, conjugate unspecified formulation 1998-03-03 00:00:00 Completed [facility] MMR 1998-03-03 00:00:00 Completed [facility] Poliovirus, Live, Oral, Trivalent 1998-03-03 00:00:00 Completed [facility] DTaP, Unspecified Formulation 1998-03-03 00:00:00 Completed [facility] Hep B, Adol or Pedi Dosage 1998-03-03 00:00:00 Completed [facility] Haemophilus influenzae type b vaccine, conjugate unspecified formulation 1998-03-03 00:00:00 Completed [facility] MMR 1998-03-03 00:00:00 Completed [facility] Poliovirus, Live, Oral, Trivalent 1998-03-03 00:00:00 Completed [facility] DTaP, Unspecified Formulation 1998-03-03 00:00:00 Completed [facility] Hep B, Adol or Pedi Dosage 1998-03-03 00:00:00 Completed [facility] Haemophilus influenzae type b vaccine, conjugate unspecified formulation 1998-03-03 00:00:00 Completed [facility] MMR 1998-03-03 00:00:00 Completed [facility] Poliovirus, Live, Oral, Trivalent 1998-03-03 00:00:00 Completed [facility] DTaP, Unspecified Formulation 1998-03-03 00:00:00 Completed [facility] Hep B, Adol or Pedi Dosage 1998-03-03 00:00:00 Completed [facility] Haemophilus influenzae type b vaccine, conjugate unspecified formulation 1998-03-03 00:00:00 Completed [facility] MMR 1998-03-03 00:00:00 Completed [facility] Poliovirus, Live, Oral, Trivalent 1998-03-03 00:00:00 Completed [facility] DTaP, Unspecified Formulation 1998-03-03 00:00:00 Completed [facility] Hep B, Adol or Pedi Dosage 1998-03-03 00:00:00 Completed [facility] Haemophilus influenzae type b vaccine, conjugate unspecified formulation 1998-03-03 00:00:00 Completed [facility] MMR 1998-03-03 00:00:00 Completed [facility] Poliovirus, Live, Oral, Trivalent 1998-03-03 00:00:00 Completed [facility] DTaP, Unspecified Formulation 1998-03-03 00:00:00 Completed [facility] Hep B, Adol or Pedi Dosage 1998-03-03 00:00:00 Completed [facility] Haemophilus influenzae type b vaccine, conjugate unspecified formulation 1998-03-03 00:00:00 Completed [facility] MMR 1998-03-03 00:00:00 Completed [facility] Poliovirus, Live, Oral, Trivalent 1998-03-03 00:00:00 Completed [facility] DTaP, Unspecified Formulation 1998-03-03 00:00:00 Completed [facility] Hep B, Adol or Pedi Dosage 1998-03-03 00:00:00 Completed Haemophilus influenzae type b vaccine, conjugate unspecified formulation 1998-03-03 00:00:00 Completed MMR 1998-03-03 00:00:00 Completed Poliovirus, Live, Oral, Trivalent 1998-03-03 00:00:00 Completed DTaP, Unspecified Formulation 1998-03-03 00:00:00 Completed [facility] Hep B, Adol or Pedi Dosage 1998-03-03 00:00:00 Completed Haemophilus influenzae type b vaccine, conjugate unspecified formulation 1998-03-03 00:00:00 Completed MMR 1998-03-03 00:00:00 Completed Poliovirus, Live, Oral, Trivalent 1998-03-03 00:00:00 Completed DTaP, Unspecified Formulation 1998-03-03 00:00:00 Completed [facility] Hep B, Adol or Pedi Dosage 1998-03-03 00:00:00 Completed [facility] Haemophilus influenzae type b vaccine, conjugate unspecified formulation 1998-03-03 00:00:00 Completed [facility] MMR 1998-03-03 00:00:00 Completed [facility] Poliovirus, Live, Oral, Trivalent 1998-03-03 00:00:00 Completed [facility] DTaP, Unspecified Formulation 1998-03-03 00:00:00 Completed [facility] Hep B, Adol or Pedi Dosage 1998-03-03 00:00:00 Completed [facility] Haemophilus influenzae type b vaccine, conjugate unspecified formulation 1998-03-03 00:00:00 Completed [facility] MMR 1998-03-03 00:00:00 Completed [facility] Poliovirus, Live, Oral, Trivalent 1998-03-03 00:00:00 Completed [facility] DTaP, Unspecified Formulation 1998-03-03 00:00:00 Completed [facility] Hep B, Adol or Pedi Dosage 1998-03-03 00:00:00 Completed [facility] Haemophilus influenzae type b vaccine, conjugate unspecified formulation 1998-03-03 00:00:00 Completed [facility] MMR 1998-03-03 00:00:00 Completed [facility] Poliovirus, Live, Oral, Trivalent 1998-03-03 00:00:00 Completed [facility] DTaP, Unspecified Formulation 1998-03-03 00:00:00 Completed [facility] Hep B, Adol or Pedi Dosage 1998-03-03 00:00:00 Completed [facility] Haemophilus influenzae type b vaccine, conjugate unspecified formulation 1998-03-03 00:00:00 Completed [facility] MMR 1998-03-03 00:00:00 Completed [facility] Poliovirus, Live, Oral, Trivalent 1998-03-03 00:00:00 Completed [facility] DTaP, Unspecified Formulation 1998-03-03 00:00:00 Completed [facility] Hep B, Adol or Pedi Dosage 1998-03-03 00:00:00 Completed [facility] Haemophilus influenzae type b vaccine, conjugate unspecified formulation 1998-03-03 00:00:00 Completed [facility] MMR 1998-03-03 00:00:00 Completed [facility] Poliovirus, Live, Oral, Trivalent 1998-03-03 00:00:00 Completed [facility] DTaP, Unspecified Formulation 1998-03-03 00:00:00 Completed [facility] Hep B, Adol or Pedi Dosage 1998-03-03 00:00:00 Completed [facility] Haemophilus influenzae type b vaccine, conjugate unspecified formulation 1998-03-03 00:00:00 Completed [facility] MMR 1998-03-03 00:00:00 Completed [facility] Poliovirus, Live, Oral, Trivalent 1998-03-03 00:00:00 Completed [facility] DTaP, Unspecified Formulation 1998-03-03 00:00:00 Completed [facility] Hep B, Adol or Pedi Dosage 1998-03-03 00:00:00 Completed [facility] Haemophilus influenzae type b vaccine, conjugate unspecified formulation 1998-03-03 00:00:00 Completed [facility] MMR 1998-03-03 00:00:00 Completed [facility] Poliovirus, Live, Oral, Trivalent 1998-03-03 00:00:00 Completed [facility] DTaP, Unspecified Formulation 1998-03-03 00:00:00 Completed [facility] Hep B, Adol or Pedi Dosage 1998-03-03 00:00:00 Completed [facility] Haemophilus influenzae type b vaccine, conjugate unspecified formulation 1998-03-03 00:00:00 Completed [facility] MMR 1998-03-03 00:00:00 Completed [facility] Poliovirus, Live, Oral, Trivalent 1998-03-03 00:00:00 Completed [facility] DTaP, Unspecified Formulation 1998-03-03 00:00:00 Completed [facility] Hep B, Adol or Pedi Dosage 1998-03-03 00:00:00 Completed [facility] Haemophilus influenzae type b vaccine, conjugate unspecified formulation 1998-03-03 00:00:00 Completed [facility] MMR 1998-03-03 00:00:00 Completed [facility] Poliovirus, Live, Oral, Trivalent 1998-03-03 00:00:00 Completed [facility] DTaP, Unspecified Formulation 1998-03-03 00:00:00 Completed [facility] Hep B, Adol or Pedi Dosage 1998-03-03 00:00:00 Completed [facility] Haemophilus influenzae type b vaccine, conjugate unspecified formulation 1998-03-03 00:00:00 Completed [facility] MMR 1998-03-03 00:00:00 Completed [facility] Poliovirus, Live, Oral, Trivalent 1998-03-03 00:00:00 Completed [facility] Haemophilus influenzae type b vaccine, conjugate unspecified formulation 1998-01-25 00:00:00 Completed [facility] MMR 1998-01-25 00:00:00 Completed [facility] Poliovirus, Live, Oral, Trivalent 1998-01-25 00:00:00 Completed [facility] DTaP, Unspecified Formulation 1998-01-25 00:00:00 Completed [facility] Hep B, Adol or Pedi Dosage 1998-01-25 00:00:00 Completed [facility] DTaP, Unspecified Formulation 1998-01-25 00:00:00 Completed [facility] Hep B, Adol or Pedi Dosage 1998-01-25 00:00:00 Completed [facility] Haemophilus influenzae type b vaccine, conjugate unspecified formulation 1998-01-25 00:00:00 Completed [facility] MMR 1998-01-25 00:00:00 Completed [facility] Poliovirus, Live, Oral, Trivalent 1998-01-25 00:00:00 Completed [facility] DTaP, Unspecified Formulation 1998-01-25 00:00:00 Completed [facility] Hep B, Adol or Pedi Dosage 1998-01-25 00:00:00 Completed [facility] Haemophilus influenzae type b vaccine, conjugate unspecified formulation 1998-01-25 00:00:00 Completed [facility] MMR 1998-01-25 00:00:00 Completed [facility] Poliovirus, Live, Oral, Trivalent 1998-01-25 00:00:00 Completed [facility] DTaP, Unspecified Formulation 1998-01-25 00:00:00 Completed [facility] Hep B, Adol or Pedi Dosage 1998-01-25 00:00:00 Completed [facility] Haemophilus influenzae type b vaccine, conjugate unspecified formulation 1998-01-25 00:00:00 Completed [facility] MMR 1998-01-25 00:00:00 Completed [facility] Poliovirus, Live, Oral, Trivalent 1998-01-25 00:00:00 Completed [facility] DTaP, Unspecified Formulation 1998-01-25 00:00:00 Completed [facility] Hep B, Adol or Pedi Dosage 1998-01-25 00:00:00 Completed [facility] Haemophilus influenzae type b vaccine, conjugate unspecified formulation 1998-01-25 00:00:00 Completed [facility] MMR 1998-01-25 00:00:00 Completed [facility] Poliovirus, Live, Oral, Trivalent 1998-01-25 00:00:00 Completed [facility] DTaP, Unspecified Formulation 1998-01-25 00:00:00 Completed [facility] Hep B, Adol or Pedi Dosage 1998-01-25 00:00:00 Completed [facility] Haemophilus influenzae type b vaccine, conjugate unspecified formulation 1998-01-25 00:00:00 Completed [facility] MMR 1998-01-25 00:00:00 Completed [facility] Poliovirus, Live, Oral, Trivalent 1998-01-25 00:00:00 Completed [facility] DTaP, Unspecified Formulation 1998-01-25 00:00:00 Completed [facility] Hep B, Adol or Pedi Dosage 1998-01-25 00:00:00 Completed [facility] Haemophilus influenzae type b vaccine, conjugate unspecified formulation 1998-01-25 00:00:00 Completed [facility] MMR 1998-01-25 00:00:00 Completed [facility] Poliovirus, Live, Oral, Trivalent 1998-01-25 00:00:00 Completed [facility] DTaP, Unspecified Formulation 1998-01-25 00:00:00 Completed [facility] Hep B, Adol or Pedi Dosage 1998-01-25 00:00:00 Completed [facility] Haemophilus influenzae type b vaccine, conjugate unspecified formulation 1998-01-25 00:00:00 [facility] [facility] 1998-01-25 00:00:00 Completed [facility] Poliovirus, Live, Oral, Trivalent 1998-01-25 00:00:00 Completed [facility] DTaP, Unspecified Formulation 1998-01-25 00:00:00 Completed [facility] Hep B, Adol or Pedi Dosage 1998-01-25 00:00:00 Completed [facility] Haemophilus influenzae type b vaccine, conjugate unspecified formulation 1998-01-25 00:00:00 Completed [facility] MMR 1998-01-25 00:00:00 Completed [facility] Poliovirus, Live, Oral, Trivalent 1998-01-25 00:00:00 Completed [facility] DTaP, Unspecified Formulation 1998-01-25 00:00:00 Completed [...] Completed DTaP, Unspecified Formulation 1998-01-25 00:00:00 Completed [facility] Hep B, Adol or Pedi Dosage 1998-01-25 00:00:00 Completed [facility] Haemophilus influenzae type b vaccine, conjugate unspecified formulation 1998-01-25 00:00:00 Completed [facility] MMR 1998-01-25 00:00:00 Completed [facility] Poliovirus, Live, Oral, Trivalent 1998-01-25 00:00:00 Completed [facility] DTaP, Unspecified Formulation 1998-01-25 00:00:00 Completed [facility] Hep B, Adol or Pedi Dosage 1998-01-25 00:00:00 Completed [facility] Haemophilus influenzae type b vaccine, conjugate unspecified formulation 1998-01-25 00:00:00 Completed [facility] MMR 1998-01-25 00:00:00 Completed [facility] Poliovirus, Live, Oral, Trivalent 1998-01-25 00:00:00 Completed [facility] DTaP, Unspecified Formulation 1998-01-25 00:00:00 Completed [facility] Hep B, Adol or Pedi Dosage 1998-01-25 00:00:00 Completed [facility] Haemophilus influenzae type b vaccine, conjugate unspecified formulation 1998-01-25 00:00:00 Completed [facility] MMR 1998-01-25 00:00:00 Completed [facility] Poliovirus, Live, Oral, Trivalent 1998-01-25 00:00:00 Completed [facility] DTaP, Unspecified Formulation 1998-01-25 00:00:00 Completed [facility] Hep B, Adol or Pedi Dosage 1998-01-25 00:00:00 Completed [facility] Haemophilus influenzae type b vaccine, conjugate unspecified formulation 1998-01-25 00:00:00 Completed [facility] MMR 1998-01-25 00:00:00 Completed [facility] Poliovirus, Live, Oral, Trivalent 1998-01-25 00:00:00 Completed [facility] DTaP, Unspecified Formulation 1998-01-25 00:00:00 Completed [facility] Hep B, Adol or Pedi Dosage 1998-01-25 00:00:00 Completed [facility] Haemophilus influenzae type b vaccine, conjugate unspecified formulation 1998-01-25 00:00:00 Completed [facility] MMR 1998-01-25 00:00:00 Completed [facility] Poliovirus, Live, Oral, Trivalent 1998-01-25 00:00:00 Completed [facility] DTaP, Unspecified Formulation 1998-01-25 00:00:00 Completed [facility] Hep B, Adol or Pedi Dosage 1998-01-25 00:00:00 Completed [facility] Haemophilus influenzae type b vaccine, conjugate unspecified formulation 1998-01-25 00:00:00 Completed [facility] MMR 1998-01-25 00:00:00 Completed [facility] Poliovirus, Live, Oral, Trivalent 1998-01-25 00:00:00 Completed [facility] DTaP, Unspecified Formulation 1998-01-25 00:00:00 Completed [facility] Hep B, Adol or Pedi Dosage 1998-01-25 00:00:00 Completed [facility] Haemophilus influenzae type b vaccine, conjugate unspecified formulation 1998-01-25 00:00:00 Completed [facility] MMR 1998-01-25 00:00:00 Completed [facility] Poliovirus, Live, Oral, Trivalent 1998-01-25 00:00:00 Completed [facility] DTaP, Unspecified Formulation 1998-01-25 00:00:00 Completed [facility] Hep B, Adol or Pedi Dosage 1998-01-25 00:00:00 Completed [facility] Haemophilus influenzae type b vaccine, conjugate unspecified formulation 1998-01-25 00:00:00 Completed [facility] MMR 1998-01-25 00:00:00 Completed [facility] Poliovirus, Live, Oral, Trivalent 1998-01-25 00:00:00 Completed [facility] DTaP, Unspecified Formulation 1998-01-25 00:00:00 Completed [facility] Hep B, Adol or Pedi Dosage 1998-01-25 00:00:00 Completed [facility] Haemophilus influenzae type b vaccine, conjugate unspecified formulation 1998-01-25 00:00:00 Completed [facility] MMR 1998-01-25 00:00:00 Completed [facility] Poliovirus, Live, Oral, Trivalent 1998-01-25 00:00:00 Completed [facility] DTaP, Unspecified Formulation 1998-01-25 00:00:00 Completed [facility] Hep B, Adol or Pedi Dosage 1998-01-25 00:00:00 Completed [facility] Haemophilus influenzae type b vaccine, conjugate unspecified formulation 1998-01-25 00:00:00 Completed [facility] MMR 1998-01-25 00:00:00 Completed [facility] Poliovirus, Live, Oral, Trivalent 1998-01-25 00:00:00 Completed [facility] MMR 1996-01-27 00:00:00 Completed [facility] MMR 1996-01-27 00:00:00 Completed [facility] MMR 1996-01-27 00:00:00 Completed [facility] MMR 1996-01-27 00:00:00 Completed [facility] MMR 1996-01-27 00:00:00 Completed [facility] MMR 1996-01-27 00:00:00 Completed [facility] MMR 1996-01-27 00:00:00 Completed [facility] MMR 1996-01-27 00:00:00 Completed [facility] MMR 1996-01-27 00:00:00 Completed [facility] MMR 1996-01-27 00:00:00 Completed MMR 1996-01-27 00:00:00 Completed MMR 1996-01-27 00:00:00 Completed [facility] MMR 1996-01-27 00:00:00 Completed [facility] MMR 1996-01-27 00:00:00 Completed [facility] MMR 1996-01-27 00:00:00 Completed [facility] MMR 1996-01-27 00:00:00 Completed [facility] MMR 1996-01-27 00:00:00 Completed [facility] MMR 1996-01-27 00:00:00 Completed [facility] MMR 1996-01-27 00:00:00 Completed [facility] MMR 1996-01-27 00:00:00 Completed [facility] MMR 1996-01-27 00:00:00 Completed [facility] MMR 1995-11-13 00:00:00 Completed [facility] DPT/HIB 1995-11-13 00:00:00 Completed [facility] DPT/HIB 1995-11-13 00:00:00 Completed [facility] MMR 1995-11-13 00:00:00 Completed [facility] DPT/HIB 1995-11-13 00:00:00 Completed [facility] MMR 1995-11-13 00:00:00 Completed [facility] DPT/HIB 1995-11-13 00:00:00 Completed [facility] MMR 1995-11-13 00:00:00 Completed [facility] DPT/HIB 1995-11-13 00:00:00 Completed [facility] MMR 1995-11-13 00:00:00 Completed [facility] DPT/HIB 1995-11-13 00:00:00 Completed [facility] MMR 1995-11-13 00:00:00 Completed [facility] DPT/HIB 1995-11-13 00:00:00 Completed [facility] MMR 1995-11-13 00:00:00 Completed [facility] DPT/HIB 1995-11-13 00:00:00 Completed [facility] MMR 1995-11-13 00:00:00 Completed [facility] DPT/HIB 1995-11-13 00:00:00 Completed [facility] MMR 1995-11-13 00:00:00 Completed [facility] DPT/HIB 1995-11-13 00:00:00 Completed MMR 1995-11-13 00:00:00 Completed DPT/HIB 1995-11-13 00:00:00 Completed MMR 1995-11-13 00:00:00 Completed DPT/HIB 1995-11-13 00:00:00 Completed [facility] MMR 1995-11-13 00:00:00 Completed [facility] DPT/HIB 1995-11-13 00:00:00 Completed [facility] MMR 1995-11-13 00:00:00 Completed [facility] DPT/HIB 1995-11-13 00:00:00 Completed [facility] MMR 1995-11-13 00:00:00 Completed [facility] DPT/HIB 1995-11-13 00:00:00 Completed [facility] MMR 1995-11-13 00:00:00 Completed [facility] DPT/HIB 1995-11-13 00:00:00 Completed [facility] MMR 1995-11-13 00:00:00 Completed [facility] DPT/HIB 1995-11-13 00:00:00 Completed [facility] MMR 1995-11-13 00:00:00 Completed [facility] DPT/HIB 1995-11-13 00:00:00 Completed [facility] MMR 1995-11-13 00:00:00 Completed [facility] DPT/HIB 1995-11-13 00:00:00 Completed [facility] MMR 1995-11-13 00:00:00 Completed [facility] DPT/HIB 1995-11-13 00:00:00 Completed [facility] MMR 1995-11-13 00:00:00 Completed [facility] DPT/HIB 1995-11-13 00:00:00 Completed [facility] MMR 1995-11-13 00:00:00 Completed [facility] DTaP, Unspecified Formulation Unknown Completed [facility] DPT/HIB Unknown Completed [facility] A Adult [facility] Hep B, Adol or Pedi Dosage Unknown Completed [facility] Haemophilus influenzae type b vaccine, conjugate unspecified formulation Unknown Completed [facility] Meningococcal Polysaccharide (groups A, C, Y and W-135) conjugate vaccine (MCV4P) Unknown Completed [facility] MMR Unknown Completed [facility] Poliovirus, Live, Oral, Trivalent Unknown Completed [facility] TDAP Unknown Completed [facility] Varicella (varivax)(chicken pox) Unknown Completed [facility] DTaP, Unspecified Formulation Unknown Completed [facility] DPT/HIB Unknown Completed [facility] Hepatitis A Adult Unknown [facility] Hep B, Adol or Pedi Dosage Unknown Completed [facility] Haemophilus influenzae type b vaccine, conjugate unspecified formulation Unknown Completed [facility] Meningococcal Polysaccharide (groups A, C, Y and W-135) conjugate vaccine (MCV4P) Unknown Completed [facility] MMR Unknown Completed [facility] Poliovirus, Live, Oral, Trivalent Unknown Completed [facility] TDAP Unknown Completed [facility] Varicella (varivax)(chicken pox) Unknown Completed [facility] DTaP, Unspecified Formulation Unknown Completed [facility] DPT/HIB Unknown Completed [facility] Adult [facility] Hep B, Adol or Pedi Dosage Unknown Completed [facility] Haemophilus influenzae type b vaccine, conjugate unspecified formulation Unknown Completed [facility] Meningococcal Polysaccharide (groups A, C, Y and W-135) conjugate vaccine (MCV4P) Unknown Completed [facility] MMR Unknown Completed [facility] Poliovirus, Live, Oral, Trivalent Unknown Completed [facility] TDAP Unknown Completed [facility] Varicella (varivax)(chicken pox) Unknown Completed [facility] DTaP, Unspecified Formulation Unknown Completed [facility] DPT/HIB Unknown Completed [facility] Hepatitis A Adult Unknown [facility] Hep B, Adol or Pedi Dosage Unknown Completed [facility] Haemophilus influenzae type b vaccine, conjugate unspecified formulation Unknown Completed [facility] Meningococcal Polysaccharide (groups A, C, Y and W-135) conjugate vaccine (MCV4P) Unknown Completed [facility] MMR Unknown Completed [facility] Poliovirus, Live, Oral, Trivalent Unknown Completed [facility] TDAP Unknown Completed [facility] Varicella (varivax)(chicken pox) Unknown Completed [facility] DTaP, Unspecified Formulation Unknown Completed [facility] DPT/HIB Unknown Completed [facility] Hepatitis A Adult Unknown [facility] Hep B, Adol or Pedi Dosage Unknown Completed [facility] Haemophilus influenzae type b vaccine, conjugate unspecified formulation Unknown Completed [facility] Meningococcal Polysaccharide (groups A, C, Y and W-135) conjugate vaccine (MCV4P) Unknown Completed [facility] MMR Unknown Completed [facility] Poliovirus, Live, Oral, Trivalent Unknown Completed [facility] TDAP Unknown Completed [facility] Varicella (varivax)(chicken pox) Unknown Completed [facility] DTaP, Unspecified Formulation Unknown Completed [facility] DPT/HIB Unknown Completed [facility] Hepatitis A Adult Unknown [facility] Hep B, Adol or Pedi Dosage Unknown Completed [facility] Haemophilus influenzae type b vaccine, conjugate unspecified formulation Unknown Completed [facility] Meningococcal Polysaccharide (groups A, C, Y and W-135) conjugate vaccine (MCV4P) Unknown Completed [facility] MMR Unknown Completed [facility] Poliovirus, Live, Oral, Trivalent Unknown Completed [facility] TDAP Unknown Completed [facility] Varicella (varivax)(chicken pox) Unknown Completed [facility] DTaP, Unspecified Formulation Unknown Completed [facility] DPT/HIB Unknown Completed [facility] Hepatitis A Adult Unknown [facility] Hep B, Adol or Pedi Dosage Unknown Completed [facility] Haemophilus influenzae type b vaccine, conjugate unspecified formulation Unknown Completed [facility] Meningococcal Polysaccharide (groups A, C, Y and W-135) conjugate vaccine (MCV4P) Unknown Completed [facility] MMR Unknown Completed [facility] Poliovirus, Live, Oral, Trivalent Unknown Completed [facility] TDAP Unknown Completed [facility] Varicella (varivax)(chicken pox) Unknown Completed [facility] DTaP, Unspecified Formulation Unknown Completed [facility] DPT/HIB Unknown Completed [facility] Hepatitis A Adult Unknown [facility] Hep B, Adol or Pedi Dosage Unknown Completed [facility] Haemophilus influenzae type b vaccine, conjugate unspecified formulation Unknown Completed [facility] Meningococcal Polysaccharide (groups A, C, Y and W-135) conjugate vaccine (MCV4P) Unknown Completed [facility] MMR Unknown Completed [facility] Poliovirus, Live, Oral, Trivalent Unknown Completed [facility] TDAP Unknown Completed [facility] Varicella (varivax)(chicken pox) Unknown Completed [facility] DTaP, Unspecified Formulation Unknown Completed [facility] DPT/HIB Unknown Completed [facility] Hepatitis A Adult Unknown [facility] Hep B, Adol or Pedi Dosage Unknown Completed [facility] Haemophilus influenzae type b vaccine, conjugate unspecified formulation Unknown Completed [facility] Meningococcal Polysaccharide (groups A, C, Y and W-135) conjugate vaccine (MCV4P) Unknown Completed [facility] MMR Unknown Completed [facility] Poliovirus, Live, Oral, Trivalent Unknown Completed [facility] TDAP Unknown Completed [facility] Varicella (varivax)(chicken pox) Unknown Completed [facility] DTaP, Unspecified Formulation Unknown Completed [facility] DPT/HIB Unknown Completed [facility] Hepatitis A Adult Unknown [facility] Com[facility] Hep B, Adol or Pedi Dosage Unknown Completed [facility] Haemophilus influenzae type b vaccine, conjugate unspecified formulation Unknown Completed [facility] Meningococcal Polysaccharide (groups A, C, Y and W-135) conjugate vaccine (MCV4P) Unknown Completed [facility] MMR Unknown Completed [facility] Poliovirus, Live, Oral, Trivalent Unknown Completed [facility] TDAP Unknown Completed [facility] Varicella (varivax)(chicken pox) Unknown Completed [facility] DTaP, Unspecified Formulation Unknown Completed [facility] DPT/HIB Unknown Completed [facility] Hepatitis A Adult Unknown [facility] Hep B, Adol or Pedi Dosage Unknown Completed [facility] Haemophilus influenzae type b vaccine, conjugate unspecified formulation Unknown Completed [facility] Meningococcal Polysaccharide (groups A, C, Y and W-135) conjugate vaccine (MCV4P) Unknown Completed [facility] MMR Unknown Completed [facility] Poliovirus, Live, Oral, Trivalent Unknown Completed [facility] TDAP Unknown Completed [facility] Varicella (varivax)(chicken pox) Unknown Completed [facility] DTaP, Unspecified Formulation Unknown Completed [facility] DPT/HIB Unknown Completed [facility] Hepatitis A Adult Unknown [facility] Com[facility] Hep B, Adol or Pedi Dosage Unknown Completed [facility] Haemophilus influenzae type b vaccine, conjugate unspecified formulation Unknown Completed [facility] Meningococcal Polysaccharide (groups A, C, Y and W-135) conjugate vaccine (MCV4P) Unknown Completed [facility] MMR Unknown Completed [facility] Poliovirus, Live, Oral, Trivalent Unknown Completed [facility] TDAP Unknown Completed [facility] Varicella (varivax)(chicken pox) Unknown Completed [facility] DTaP, Unspecified Formulation Unknown Completed [facility] DPT/HIB Unknown Completed [facility] Hepatitis A Adult Unknown [facility] Hep B, Adol or Pedi Dosage Unknown Completed [facility] Haemophilus influenzae type b vaccine, conjugate unspecified formulation Unknown Completed [facility] Meningococcal Polysaccharide (groups A, C, Y and W-135) conjugate vaccine (MCV4P) Unknown Completed [facility] MMR Unknown Completed [facility] Poliovirus, Live, Oral, Trivalent Unknown Completed [facility] TDAP Unknown Completed [facility] Varicella (varivax)(chicken pox) Unknown Completed [facility] DTaP, Unspecified Formulation Unknown Completed [facility] DPT/HIB Unknown Completed [facility] Hepatitis A Adult Unknown [facility] Com[facility] Hep B, Adol or Pedi Dosage Unknown Completed [facility] Haemophilus influenzae type b vaccine, conjugate unspecified formulation Unknown Completed [facility] Meningococcal Polysaccharide (groups A, C, Y and W-135) conjugate vaccine (MCV4P) Unknown Completed [facility] MMR Unknown Completed [facility] Poliovirus, Live, Oral, Trivalent Unknown Completed [facility] TDAP Unknown Completed [facility] Varicella (varivax)(chicken pox) Unknown Completed [facility] DTaP, Unspecified Formulation Unknown Completed [facility] DPT/HIB Unknown Completed [facility] Hepatitis A Adult Unknown [facility] Completed [facility] Hep B, Adol or Pedi Dosage Unknown Completed [facility] Haemophilus influenzae type b vaccine, conjugate unspecified formulation Unknown Completed [facility] Meningococcal Polysaccharide (groups A, C, Y and W-135) conjugate vaccine (MCV4P) Unknown Completed [facility] MMR Unknown Completed [facility] Poliovirus, Live, Oral, Trivalent Unknown Completed [facility] TDAP Unknown Completed [facility] Varicella (varivax)(chicken pox) Unknown Completed [facility] DPT/HIB Unknown Completed [facility] Hepatitis A Adult Unknown [facility] Com[facility] Meningococcal Polysaccharide (groups A, C, Y and W-135) conjugate vaccine (MCV4P) Unknown Completed [facility] TDAP Unknown Completed [facility] Varicella (varivax)(chicken pox) Unknown Completed [facility] DTaP, Unspecified Formulation Unknown Completed [facility] Hep B, Adol or Pedi Dosage Unknown Completed [facility] Haemophilus influenzae type b vaccine, conjugate unspecified formulation Unknown Completed [facility] MMR Unknown Completed [facility] Poliovirus, Live, Oral, Trivalent Unknown Completed [facility] DTaP, Unspecified Formulation Unknown Completed [facility] DPT/HIB Unknown Completed [facility] Hepatitis A Adult Unknown [facility] Com[facility] Hep B, Adol or Pedi Dosage Unknown Completed [facility] Haemophilus influenzae type b vaccine, conjugate unspecified formulation Unknown Completed [facility] Meningococcal Polysaccharide (groups A, C, Y and W-135) conjugate vaccine (MCV4P) Unknown Completed [facility] MMR Unknown Completed [facility] Poliovirus, Live, Oral, Trivalent Unknown Completed [facility] TDAP Unknown Completed [facility] Varicella (varivax)(chicken pox) Unknown Completed [facility] DTaP, Unspecified Formulation Unknown Completed [facility] DPT/HIB Unknown Completed [facility] Hepatitis A Adult Unknown [facility] Com[facility] Hep B, Adol or Pedi Dosage Unknown Completed [facility] Haemophilus influenzae type b vaccine, conjugate unspecified formulation Unknown Completed [facility] Meningococcal Polysaccharide (groups A, C, Y and W-135) conjugate vaccine (MCV4P) Unknown Completed [facility] MMR Unknown Completed [facility] Poliovirus, Live, Oral, Trivalent Unknown Completed [facility] TDAP Unknown Completed [facility] Varicella (varivax)(chicken pox) Unknown Completed [facility] DTaP, Unspecified Formulation Unknown Completed [facility] DPT/HIB Unknown Completed [facility] Hepatitis A Adult Unknown Completed [facility] [facility] Hep B, Adol or Pedi Dosage Unknown Completed [facility] Haemophilus influenzae type b vaccine, conjugate unspecified formulation Unknown Completed [facility] Meningococcal Polysaccharide (groups A, C, Y and W-135) conjugate vaccine (MCV4P) Unknown Completed [facility] MMR Unknown Completed [facility] Poliovirus, Live, Oral, Trivalent Unknown Completed [facility] TDAP Unknown Completed [facility] Varicella (varivax)(chicken pox) Unknown Completed [facility] DTaP, Unspecified Formulation Unknown Completed [facility] DPT/HIB Unknown Completed [facility] Hepatitis A Adult Unknown [facility] Hep B, Adol or Pedi Dosage Unknown Completed [facility] Haemophilus influenzae type b vaccine, conjugate unspecified formulation Unknown Completed [facility] Meningococcal Polysaccharide (groups A, C, Y and W-135) conjugate vaccine (MCV4P) Unknown Completed [facility] MMR Unknown Completed [facility] Poliovirus, Live, Oral, Trivalent Unknown Completed [facility] TDAP Unknown Completed [facility] Varicella (varivax)(chicken pox) Unknown Completed [facility] DTaP, Unspecified Formulation Unknown Completed [facility] DPT/HIB Unknown Completed [facility] Hepatitis A Adult Unknown [facility] Hep B, Adol or Pedi Dosage Unknown Completed [facility] Haemophilus influenzae type b vaccine, conjugate unspecified formulation Unknown Completed [facility] Meningococcal Polysaccharide (groups A, C, Y and W-135) conjugate vaccine (MCV4P) Unknown Completed [facility] MMR Unknown Completed [facility] Poliovirus, Live, Oral, Trivalent Unknown Completed [facility] TDAP Unknown Completed [facility] Varicella (varivax)(chicken pox) Unknown Completed [facility] DTaP, Unspecified Formulation Unknown Completed [facility] DPT/HIB Unknown Completed [facility] Hepatitis A Adult Unknown [facility] Hep B, Adol or Pedi Dosage Unknown Completed [facility] Haemophilus influenzae type b vaccine, conjugate unspecified formulation Unknown Completed [facility] Meningococcal Polysaccharide (groups A, C, Y and W-135) conjugate vaccine (MCV4P) Unknown Completed [facility] MMR Unknown Completed [facility] Poliovirus, Live, Oral, Trivalent Unknown Completed [facility] TDAP Unknown Completed [facility] Varicella (varivax)(chicken pox) Unknown Completed [facility] DTaP, Unspecified Formulation Unknown Completed [facility] DPT/HIB Unknown Completed [facility] Hepatitis A Adult Unknown [facility] Hep B, Adol or Pedi Dosage Unknown Completed [facility] Haemophilus influenzae type b vaccine, conjugate unspecified formulation Unknown Completed [facility] Meningococcal Polysaccharide (groups A, C, Y and W-135) conjugate vaccine (MCV4P) Unknown Completed [facility] MMR Unknown Completed [facility] Poliovirus, Live, Oral, Trivalent Unknown Completed [facility] TDAP Unknown Completed [facility] Varicella (varivax)(chicken pox) Unknown Completed [facility] DPT/HIB Unknown Completed [facility] Hepatitis A Adult Unknown [facility] Completed [facility] Meningococcal Polysaccharide (groups A, C, Y and W-135) conjugate vaccine (MCV4P) Unknown Completed [facility] TDAP Unknown Completed [facility] Varicella (varivax)(chicken pox) Unknown Completed [facility] DTaP, Unspecified Formulation Unknown Completed [facility] Hep B, Adol or Pedi Dosage Unknown Completed [facility] Haemophilus influenzae type b vaccine, conjugate unspecified formulation Unknown Completed [facility] MMR Unknown Completed [facility] Poliovirus, Live, Oral, Trivalent Unknown Completed [facility] DTaP, Unspecified Formulation Unknown Completed [facility] DPT/HIB Unknown Completed [facility] Hepatitis A Adult [facility] Hep B, Adol or Pedi Dosage Unknown Completed [facility] Haemophilus influenzae type b vaccine, conjugate unspecified formulation Unknown Completed [facility] Meningococcal Polysaccharide (groups A, C, Y and W-135) conjugate vaccine (MCV4P) Unknown Completed [facility] MMR Unknown Completed [facility] Poliovirus, Live, Oral, Trivalent Unknown Completed [facility] TDAP Unknown Completed [facility] Varicella (varivax)(chicken pox) Unknown Completed [facility] DTaP, Unspecified Formulation Unknown Completed [facility] DPT/HIB Unknown Completed [facility] Hepatitis A Adult Unknown [facility] Hep B, Adol or Pedi Dosage Unknown Completed [facility] Haemophilus influenzae type b vaccine, conjugate unspecified formulation Unknown Completed [facility] Meningococcal Polysaccharide (groups A, C, Y and W-135) conjugate vaccine (MCV4P) Unknown Completed [facility] MMR Unknown Completed [facility] Poliovirus, Live, Oral, Trivalent Unknown Completed [facility] TDAP Unknown Completed [facility] Varicella (varivax)(chicken pox) Unknown Completed [facility] DTaP, Unspecified Formulation Unknown Completed [facility] DPT/HIB Unknown Completed [facility] Hepatitis A Adult Unknown [facility] Com[facility] Hep B, Adol or Pedi Dosage Unknown Completed [facility] Haemophilus influenzae type b vaccine, conjugate unspecified formulation Unknown Completed [facility] Meningococcal Polysaccharide (groups A, C, Y and W-135) conjugate vaccine (MCV4P) Unknown Completed [facility] MMR Unknown Completed [facility] Poliovirus, Live, Oral, Trivalent Unknown Completed [facility] TDAP Unknown Completed [facility] Varicella (varivax)(chicken pox) Unknown Completed [facility] DTaP, Unspecified Formulation Unknown Completed [facility] DPT/HIB Unknown Completed [facility] Hepatitis A Adult Unknown [facility] Hep B, Adol or Pedi Dosage Unknown Completed [facility] Haemophilus influenzae type b vaccine, conjugate unspecified formulation Unknown Completed [facility] Meningococcal Polysaccharide (groups A, C, Y and W-135) conjugate vaccine (MCV4P) Unknown Completed [facility] MMR Unknown Completed [facility] Poliovirus, Live, Oral, Trivalent Unknown Completed [facility] TDAP Unknown Completed [facility] Varicella (varivax)(chicken pox) Unknown Completed [facility] DTaP, Unspecified Formulation Unknown Completed [facility] DPT/HIB Unknown Completed [facility] Hepatitis A Adult Unknown [facility] Completed [facility] Hep B, Adol or Pedi Dosage Unknown Completed [facility] Haemophilus influenzae type b vaccine, conjugate unspecified formulation Unknown Completed [facility] Meningococcal Polysaccharide (groups A, C, Y and W-135) conjugate vaccine (MCV4P) Unknown Completed [facility] MMR Unknown Completed [facility] Poliovirus, Live, Oral, Trivalent Unknown Completed [facility] TDAP Unknown Completed [facility] Varicella (varivax)(chicken pox) Unknown Completed [facility] DTaP, Unspecified Formulation Unknown Completed [facility] DPT/HIB Unknown Completed [facility] Hepatitis A Adult Unknown [facility] Completed [facility] Hep B, Adol or Pedi Dosage Unknown Completed [facility] Haemophilus influenzae type b vaccine, conjugate unspecified formulation Unknown Completed [facility] Meningococcal Polysaccharide (groups A, C, Y and W-135) conjugate vaccine (MCV4P) Unknown Completed [facility] MMR Unknown Completed [facility] Poliovirus, Live, Oral, Trivalent Unknown Completed [facility] TDAP Unknown Completed [facility] Varicella (varivax)(chicken pox) Unknown Completed [facility] DTaP, Unspecified Formulation Unknown Completed [facility] DPT/HIB Unknown Completed [facility] Hepatitis A Adult Unknown [facility] Hep B, Adol or Pedi Dosage Unknown Completed [facility] Haemophilus influenzae type b vaccine, conjugate unspecified formulation Unknown Completed [facility] Meningococcal Polysaccharide (groups A, C, Y and W-135) conjugate vaccine (MCV4P) Unknown Completed [facility] MMR Unknown Completed [facility] Poliovirus, Live, Oral, Trivalent Unknown Completed [facility] TDAP Unknown Completed [facility] Varicella (varivax)(chicken pox) Unknown Completed [facility] DTaP, Unspecified Formulation Unknown Completed [facility] DPT/HIB Unknown Completed [facility] Hepatitis A Adult Unknown [facility] Completed [facility] Hep B, Adol or Pedi Dosage Unknown Completed [facility] Haemophilus influenzae type b vaccine, conjugate unspecified formulation Unknown Completed [facility] Meningococcal Polysaccharide (groups A, C, Y and W-135) conjugate vaccine (MCV4P) Unknown Completed [facility] MMR Unknown Completed [facility] Poliovirus, Live, Oral, Trivalent Unknown Completed [facility] TDAP Unknown Completed [facility] Varicella (varivax)(chicken pox) Unknown Completed [facility] DTaP, Unspecified Formulation Unknown Completed [facility] DPT/HIB Unknown Completed [facility] Hepatitis A Adult Unknown [facility] Com[facility] Hep B, Adol or Pedi Dosage Unknown Completed [facility] Haemophilus influenzae type b vaccine, conjugate unspecified formulation Unknown Completed [facility] Meningococcal Polysaccharide (groups A, C, Y and W-135) conjugate vaccine (MCV4P) Unknown Completed [facility] MMR Unknown Completed [facility] Poliovirus, Live, Oral, Trivalent Unknown Completed [facility] TDAP Unknown Completed [facility] Varicella (varivax)(chicken pox) Unknown Completed [facility] DTaP, Unspecified Formulation Unknown Completed [facility] DPT/HIB Unknown Completed [facility] Hepatitis A Adult Unknown [facility] Completed [facility] Hep B, Adol or Pedi Dosage Unknown Completed [facility] Haemophilus influenzae type b vaccine, conjugate unspecified formulation Unknown Completed [facility] Meningococcal Polysaccharide (groups A, C, Y and W-135) conjugate vaccine (MCV4P) Unknown Completed [facility] MMR Unknown Completed [facility] Poliovirus, Live, Oral, Trivalent Unknown Completed [facility] TDAP Unknown Completed [facility] Varicella (varivax)(chicken pox) Unknown Completed [facility] DTaP, Unspecified Formulation Unknown Completed [facility] DPT/HIB Unknown Completed [facility] Hepatitis A Adult Unknown [facility] Com[facility] Hep B, Adol or Pedi Dosage Unknown Completed [facility] Haemophilus influenzae type b vaccine, conjugate unspecified formulation Unknown Completed [facility] Meningococcal Polysaccharide (groups A, C, Y and W-135) conjugate vaccine (MCV4P) Unknown Completed [facility] MMR Unknown Completed [facility] Poliovirus, Live, Oral, Trivalent Unknown Completed [facility] TDAP Unknown Completed [facility] Varicella (varivax)(chicken pox) Unknown Completed [facility] DTaP, Unspecified Formulation Unknown Completed [facility] DPT/HIB Unknown Completed [facility] Hepatitis A Adult Unknown Com[facility] Completed [facility] Hep B, Adol or Pedi Dosage Unknown Completed [facility] Haemophilus influenzae type b vaccine, conjugate unspecified formulation Unknown Completed [facility] Meningococcal Polysaccharide (groups A, C, Y and W-135) conjugate vaccine (MCV4P) Unknown Completed [facility] MMR Unknown Completed [facility] Poliovirus, Live, Oral, Trivalent Unknown Completed [facility] TDAP Unknown Completed [facility] Varicella (varivax)(chicken pox) Unknown Completed [facility] DTaP, Unspecified Formulation Unknown Completed [facility] DPT/HIB Unknown Completed [facility] Hepatitis A Adult Unknown [facility] Completed [facility] Hep B, Adol or Pedi Dosage Unknown Completed [facility] Haemophilus influenzae type b vaccine, conjugate unspecified formulation Unknown Completed [facility] Meningococcal Polysaccharide (groups A, C, Y and W-135) conjugate vaccine (MCV4P) Unknown Completed [facility] MMR Unknown Completed [facility] Poliovirus, Live, Oral, Trivalent Unknown Completed [facility] TDAP Unknown Completed [facility] Varicella (varivax)(chicken pox) Unknown Completed [facility] DTaP, Unspecified Formulation Unknown Completed [facility] DPT/HIB Unknown Completed [facility] Hepatitis A Adult Unknown [facility] Com[facility] Hep B, Adol or Pedi Dosage Unknown Completed [facility] Haemophilus influenzae type b vaccine, conjugate unspecified formulation Unknown Completed [facility] Meningococcal Polysaccharide (groups A, C, Y and W-135) conjugate vaccine (MCV4P) Unknown Completed [facility] MMR Unknown Completed [facility] Poliovirus, Live, Oral, Trivalent Unknown Completed [facility] TDAP Unknown Completed [facility] Varicella (varivax)(chicken pox) Unknown Completed [facility] DTaP, Unspecified Formulation Unknown Completed [facility] DPT/HIB Unknown Completed [facility] Hepatitis A Adult Unknown [facility] Com[facility] Hep B, Adol or Pedi Dosage Unknown Completed [facility] Haemophilus influenzae type b vaccine, conjugate unspecified formulation Unknown Completed [facility] Meningococcal Polysaccharide (groups A, C, Y and W-135) conjugate vaccine (MCV4P) Unknown Completed [facility] MMR Unknown Completed [facility] Poliovirus, Live, Oral, Trivalent Unknown Completed [facility] TDAP Unknown Completed [facility] Varicella (varivax)(chicken pox) Unknown Completed [facility] DTaP, Unspecified Formulation Unknown Completed [facility] DPT/HIB Unknown Completed [facility] Hepatitis A Adult Unknown [facility] Com[facility] Hep B, Adol or Pedi Dosage Unknown Completed [facility] Haemophilus influenzae type b vaccine, conjugate unspecified formulation Unknown Completed [facility] Meningococcal Polysaccharide (groups A, C, Y and W-135) conjugate vaccine (MCV4P) Unknown Completed [facility] MMR Unknown Completed [facility] Poliovirus, Live, Oral, Trivalent Unknown Completed [facility] TDAP Unknown Completed [facility] Varicella (varivax)(chicken pox) Unknown Completed [facility] DTaP, Unspecified Formulation Unknown Completed [facility] DPT/HIB Unknown Completed [facility] Hepatitis A Adult Unknown [facility] Com[facility] Hep B, Adol or Pedi Dosage Unknown Completed [facility] Haemophilus influenzae type b vaccine, conjugate unspecified formulation Unknown Completed [facility] Meningococcal Polysaccharide (groups A, C, Y and W-135) conjugate vaccine (MCV4P) Unknown Completed [facility] MMR Unknown Completed [facility] Poliovirus, Live, Oral, Trivalent Unknown Completed [facility] TDAP Unknown Completed [facility] Varicella (varivax)(chicken pox) Unknown Completed [facility] DTaP, Unspecified Formulation Unknown Completed [facility] DPT/HIB Unknown Completed [facility] Hepatitis A Adult Unknown [facility] Completed [facility] Hep B, Adol or Pedi Dosage Unknown Completed [facility] Haemophilus influenzae type b vaccine, conjugate unspecified formulation Unknown Completed [facility] Meningococcal Polysaccharide (groups A, C, Y and W-135) conjugate vaccine (MCV4P) Unknown Completed [facility] MMR Unknown Completed [facility] Poliovirus, Live, Oral, Trivalent Unknown Completed [facility] TDAP Unknown Completed [facility] Varicella (varivax)(chicken pox) Unknown Completed [facility] DTaP, Unspecified Formulation Unknown Completed [facility] DPT/HIB Unknown Completed [facility] Hepatitis A Adult Unknown Completed Un [facility] HEPATITIS A Unknown Completed [facility] Hep B, Adol or Pedi Dosage Unknown Completed [facility] Haemophilus influenzae type b vaccine, conjugate unspecified formulation Unknown Completed [facility] Meningococcal Polysaccharide (groups A, C, Y and W-135) conjugate vaccine (MCV4P) Unknown Completed [facility] MMR Unknown Completed [facility] Poliovirus, Live, Oral, Trivalent Unknown Completed [facility] TDAP Unknown Completed [facility] Varicella (varivax)(chicken pox) Unknown Completed [facility] DTaP, Unspecified Formulation Unknown Completed [facility] DPT/HIB Unknown Completed [facility] Hepatitis A Adult Unknown [facility] Com[facility] Hep B, Adol or Pedi Dosage Unknown Completed [facility] Haemophilus influenzae type b vaccine, conjugate unspecified formulation Unknown Completed [facility] Meningococcal Polysaccharide (groups A, C, Y and W-135) conjugate vaccine (MCV4P) Unknown Completed [facility] MMR Unknown Completed [facility] Poliovirus, Live, Oral, Trivalent Unknown Completed [facility] TDAP Unknown Completed [facility] Varicella (varivax)(chicken pox) Unknown Completed [facility] DTaP, Unspecified Formulation Unknown Completed [facility] DPT/HIB Unknown Completed [facility] Hepatitis A Adult Unknown Com[facility] Hep B, Adol or Pedi Dosage Unknown Completed [facility] Haemophilus influenzae type b vaccine, conjugate unspecified formulation Unknown Completed [facility] Meningococcal Polysaccharide (groups A, C, Y and W-135) conjugate vaccine (MCV4P) Unknown Completed [facility] MMR Unknown Completed [facility] Poliovirus, Live, Oral, Trivalent Unknown Completed [facility] TDAP Unknown Completed [facility] Varicella (varivax)(chicken pox) Unknown Completed [facility] DTaP, Unspecified Formulation Unknown Completed [facility] DPT/HIB Unknown Completed [facility] Hepatitis A Adult Unknown [facility] Completed [facility] Hep B, Adol or Pedi Dosage Unknown Completed [facility] Haemophilus influenzae type b vaccine, conjugate unspecified formulation Unknown Completed [facility] Meningococcal Polysaccharide (groups A, C, Y and W-135) conjugate vaccine (MCV4P) Unknown Completed [facility] MMR Unknown Completed [facility] Poliovirus, Live, Oral, Trivalent Unknown Completed [facility] TDAP Unknown Completed [facility] Varicella (varivax)(chicken pox) Unknown Completed [facility] DPT/HIB Unknown Completed [facility] Hepatitis A Adult Unknown [facility] Completed [facility] Meningococcal Polysaccharide (groups A, C, Y and W-135) conjugate vaccine (MCV4P) Unknown Completed [facility] TDAP Unknown Completed [facility] Varicella (varivax)(chicken pox) Unknown Completed [facility] DTaP, Unspecified Formulation Unknown Completed [facility] Hep B, Adol or Pedi Dosage Unknown Completed [facility] Haemophilus influenzae type b vaccine, conjugate unspecified formulation Unknown Completed [facility] MMR Unknown Completed [facility] Poliovirus, Live, Oral, Trivalent Unknown Completed [facility] DTaP, Unspecified Formulation Unknown Completed [facility] DPT/HIB Unknown Completed [facility] Hepatitis A Adult [facility] Hep B, Adol or Pedi Dosage Unknown Completed [facility] Haemophilus influenzae type b vaccine, conjugate unspecified formulation Unknown Completed [facility] Meningococcal Polysaccharide (groups A, C, Y and W-135) conjugate vaccine (MCV4P) Unknown Completed [facility] MMR Unknown Completed [facility] Poliovirus, Live, Oral, Trivalent Unknown Completed [facility] TDAP Unknown Completed [facility] Varicella (varivax)(chicken pox) Unknown Completed [facility] DTaP, Unspecified Formulation Unknown Completed [facility] DPT/HIB Unknown Completed [facility] Hepatitis A Adult [facility] Hep B, Adol or Pedi Dosage Unknown Completed [facility] Haemophilus influenzae type b vaccine, conjugate unspecified formulation Unknown Completed [facility] Meningococcal Polysaccharide (groups A, C, Y and W-135) conjugate vaccine (MCV4P) Unknown Completed [facility] MMR Unknown Completed [facility] Poliovirus, Live, Oral, Trivalent Unknown Completed [facility] TDAP Unknown Completed [facility] Varicella (varivax)(chicken pox) Unknown Completed [facility] DTaP, Unspecified Formulation Unknown Completed [facility] DPT/HIB Unknown Completed [facility] Hepatitis A Adult Unknown [facility] Completed [facility] Hep B, Adol or Pedi Dosage Unknown Completed [facility] Haemophilus influenzae type b vaccine, conjugate unspecified formulation Unknown Completed [facility] Meningococcal Polysaccharide (groups A, C, Y and W-135) conjugate vaccine (MCV4P) Unknown Completed [facility] MMR Unknown Completed [facility] Poliovirus, Live, Oral, Trivalent Unknown Completed [facility] TDAP Unknown Completed [facility] Varicella (varivax)(chicken pox) Unknown Completed [facility] DTaP, Unspecified Formulation Unknown Completed [facility] DPT/HIB Unknown Completed [facility] Hepatitis A Adult Unknown [facility] Hep B, Adol or Pedi Dosage Unknown Completed [facility] Haemophilus influenzae type b vaccine, conjugate unspecified formulation Unknown Completed [facility] Meningococcal Polysaccharide (groups A, C, Y and W-135) conjugate vaccine (MCV4P) Unknown Completed [facility] MMR Unknown Completed [facility] Poliovirus, Live, Oral, Trivalent Unknown Completed [facility] TDAP Unknown Completed [facility] Varicella (varivax)(chicken pox) Unknown Completed [facility] DTaP, Unspecified Formulation Unknown Completed [facility] DPT/HIB Unknown Completed [facility] Hepatitis A Adult Unknown [facility] Hep B, Adol or Pedi Dosage Unknown Completed [facility] Haemophilus influenzae type b vaccine, conjugate unspecified formulation Unknown Completed [facility] Meningococcal Polysaccharide (groups A, C, Y and W-135) conjugate vaccine (MCV4P) Unknown Completed [facility] MMR Unknown Completed [facility] Poliovirus, Live, Oral, Trivalent Unknown Completed [facility] TDAP Unknown Completed [facility] Varicella (varivax)(chicken pox) Unknown Completed [facility] DTaP, Unspecified Formulation Unknown Completed [facility] DPT/HIB Unknown Completed [facility] Hepatitis A Adult Unknown [facility] Completed [facility] Hep B, Adol or Pedi Dosage Unknown Completed [facility] Haemophilus influenzae type b vaccine, conjugate unspecified formulation Unknown Completed [facility] Meningococcal Polysaccharide (groups A, C, Y and W-135) conjugate vaccine (MCV4P) Unknown Completed [facility] MMR Unknown Completed [facility] Poliovirus, Live, Oral, Trivalent Unknown Completed [facility] TDAP Unknown Completed [facility] Varicella (varivax)(chicken pox) Unknown Completed [facility] DTaP, Unspecified Formulation Unknown Completed [facility] DPT/HIB Unknown Completed [facility] Hepatitis A Adult Unknown Completed [facility] HEPATITIS A Unknown Completed [facility] Hep B, Adol or Pedi Dosage Unknown Completed [facility] Haemophilus influenzae type b vaccine, conjugate unspecified formulation Unknown Completed [facility] Meningococcal Polysaccharide (groups A, C, Y and W-135) conjugate vaccine (MCV4P) Unknown Completed [facility] MMR Unknown Completed [facility] Poliovirus, Live, Oral, Trivalent Unknown Completed [facility] TDAP Unknown Completed [facility] Varicella (varivax)(chicken pox) Unknown Completed [facility] Vital Signs Vital Name Observation Time Observation Value Comments S ource Systolic blood pressure 2024-07-17 22:06:00 142 mm[Hg] [facility] Diastolic blood pressure 2024-07-17 22:06:00 86 mm[Hg] [facility] Heart rate 2024-07-17 22:06:00 65 /min [facility] Body temperature 2024-07-17 22:06:00 36.5 Annabella [facility] Respiratory rate 2024-07-17 22:06:00 15 /min [facility] Oxygen saturation in Arterial blood by Pulse oximetry 2024-07-17 22:06:00 99 /min [facility] Body height 2024-07-17 19:13:00 188 cm [facility] Body weight 2024-07-17 19:13:00 104.327 kg [facility] BMI 2024-07-17 19:13:00 29.53 kg/m2 [facility] Systolic blood pressure 2024-03-17 16:45:00 139 mm[Hg] [facility] Diastolic blood pressure 2024-03-17 16:45:00 90 mm[Hg] [facility] Heart rate 2024-03-17 16:45:00 82 /min [facility] Body height 2024-03-17 16:45:00 188 cm [facility] Body weight 2024-03-17 16:45:00 101.152 kg [facility] BMI 2024-03-17 16:45:00 28.63 kg/m2 [facility] Oxygen saturation in Arterial blood by Pulse oximetry 2024-03-17 16:45:00 97 /min [facility] Systolic blood pressure 2023-12-20 17:49:00 130 mm[Hg] [facility] Diastolic blood pressure 2023-12-20 17:49:00 87 mm[Hg] [facility] Heart rate 2023-12-20 17:49:00 74 /min [facility] Body temperature 2023-12-20 17:49:00 37.06 Annabella [facility] Respiratory rate 2023-12-20 17:49:00 17 /min [facility] Body height 2023-12-20 17:49:00 188 cm [facility] Body weight 2023-12-20 17:49:00 99.083 kg [facility] BMI 2023-12-20 17:49:00 28.05 kg/m2 [facility] Oxygen saturation in Arterial blood by Pulse oximetry 2023-12-20 17:49:00 96 /min [facility] Systolic blood pressure 2023-08-13 00:00:00 145 mm[Hg] [facility] Diastolic blood pressure 2023-08-13 00:00:00 99 mm[Hg] [facility] Heart rate 2023-08-13 00:00:00 86 /min [facility] Respiratory rate 2023-08-13 00:00:00 16 /min [facility] Oxygen saturation in Arterial blood by Pulse oximetry 2023-08-13 00:00:00 97 /min [facility] Body temperature 2023-08-12 21:56:00 36.72 Annabella [facility] Body height 2023-08-12 21:56:00 188 cm [facility] Body weight 2023-08-12 21:56:00 101.606 kg [facility] BMI 2023-08-12 21:56:00 28.76 kg/m2 [facility] Systolic blood pressure 2023-07-05 15:10:00 131 mm[Hg] [facility] Diastolic blood pressure 2023-07-05 15:10:00 77 mm[Hg] [facility] Body temperature 2023-07-05 15:10:00 36.44 Annabella [facility] Body height 2023-07-05 15:10:00 188 cm [facility] Body weight 2023-07-05 15:10:00 101.606 kg [facility] BMI 2023-07-05 15:10:00 28.76 kg/m2 [facility] Body height 2023-06-06 20:17:00 188 cm [facility] Body weight 2023-06-06 20:17:00 99.791 kg [facility] BMI 2023-06-06 20:17:00 28.25 kg/m2 [facility] Systolic blood pressure 2023-05-25 19:35:00 145 mm[Hg] [facility] Diastolic blood pressure 2023-05-25 19:35:00 103 mm[Hg] [facility] Heart rate 2023-05-25 19:35:00 84 /min [facility] Body temperature 2023-05-25 19:35:00 36.72 Annabella [facility] Respiratory rate 2023-05-25 19:35:00 18 /min [facility] Body height 2023-05-25 19:35:00 188 cm [facility] Body weight 2023-05-25 19:35:00 99.791 kg [facility] BMI 2023-05-25 19:35:00 28.25 kg/m2 [facility] Oxygen saturation in Arterial blood by Pulse oximetry 2023-05-25 19:35:00 100 /min [facility] Systolic blood pressure 2023-05-16 15:17:00 136 mm[Hg] [facility] Diastolic blood pressure 2023-05-16 15:17:00 84 mm[Hg] [facility] Heart rate 2023-05-16 15:17:00 68 /min [facility] Body height 2023-05-16 15:17:00 188 cm [facility] Body weight 2023-05-16 15:17:00 99.791 kg [facility] BMI 2023-05-16 15:17:00 28.25 kg/m2 [facility] Systolic blood pressure 2023-04-30 15:51:00 130 mm[Hg] [facility] Diastolic blood pressure 2023-04-30 15:51:00 88 mm[Hg] [facility] Heart rate 2023-04-30 15:49:00 68 /min [facility] Respiratory rate 2023-04-30 15:49:00 18 /min [facility] Body height 2023-04-30 15:49:00 188 cm [facility] Body weight 2023-04-30 15:49:00 99.791 kg [facility] BMI 2023-04-30 15:49:00 28.25 kg/m2 [facility] Oxygen saturation in Arterial blood by Pulse oximetry 2023-04-30 15:49:00 98 /min [facility] Heart rate 2023-04-23 20:31:00 78 /min [facility] Respiratory rate 2023-04-23 20:31:00 18 /min [facility] Body height 2023-04-23 20:31:00 182.9 cm [facility] Body weight 2023-04-23 20:31:00 100.925 kg [facility] BMI 2023-04-23 20:31:00 30.18 kg/m2 [facility] Oxygen saturation in Arterial blood by Pulse oximetry 2023-04-23 20:31:00 96 /min [facility] Systolic blood pressure 2023-04-23 20:31:00 134 mm[Hg] [facility] Diastolic blood pressure 2023-04-23 20:31:00 87 mm[Hg] [facility] Systolic blood pressure 2023-01-03 19:17:00 136 mm[Hg] [facility] Diastolic blood pressure 2023-01-03 19:17:00 84 mm[Hg] [facility] Heart rate 2023-01-03 19:17:00 83 /min [facility] Body temperature 2023-01-03 19:13:00 36.61 Annabella [facility] Body height 2023-01-03 19:13:00 188 cm [facility] Body weight 2023-01-03 19:13:00 99.202 kg [facility] BMI 2023-01-03 19:13:00 28.08 kg/m2 [facility] Oxygen saturation in Arterial blood by Pulse oximetry 2023-01-03 19:13:00 98 /min [facility] Systolic blood pressure 2022-12-12 20:32:00 143 mm[Hg] [facility] Diastolic blood pressure 2022-12-12 20:32:00 92 mm[Hg] [facility] Heart rate 2022-12-12 20:19:00 92 /min [facility] Respiratory rate 2022-12-12 20:19:00 22 /min [facility] Body height 2022-12-12 20:19:00 188 cm [facility] Body weight 2022-12-12 20:19:00 97.977 kg [facility] BMI 2022-12-12 20:19:00 27.73 kg/m2 [facility] Oxygen saturation in Arterial blood by Pulse oximetry 2022-12-12 20:19:00 99 /min [facility] Systolic blood pressure 2022-12-12 01:19:00 151 mm[Hg] [facility] Diastolic blood pressure 2022-12-12 01:19:00 97 mm[Hg] [facility] Heart rate 2022-12-12 01:19:00 86 /min [facility] Respiratory rate 2022-12-12 01:19:00 18 /min [facility] Oxygen saturation in Arterial blood by Pulse oximetry 2022-12-12 01:19:00 99 /min [facility] Body temperature 2022-12-11 23:51:47 36.67 Annabella [facility] Body weight 2022-12-11 22:02:00 97.977 kg [facility] BMI 2022-12-11 22:02:00 27.73 kg/m2 [facility] Systolic blood pressure 2022-12-08 23:30:00 145 mm[Hg] [facility] Diastolic blood pressure 2022-12-08 23:30:00 95 mm[Hg] [facility] Heart rate 2022-12-08 23:30:00 61 /min [facility] Respiratory rate 2022-12-08 23:30:00 16 /min [facility] Oxygen saturation in Arterial blood by Pulse oximetry 2022-12-08 23:30:00 98 /min [facility] Body temperature 2022-12-08 20:26:00 36.78 Annabella [facility] Body height 2022-12-08 20:26:00 188 cm [facility] Body weight 2022-12-08 20:26:00 97.977 kg [facility] BMI 2022-12-08 20:26:00 27.73 kg/m2 [facility] Systolic blood pressure 2022-12-05 18:21:00 138 mm[Hg] [facility] Diastolic blood pressure 2022-12-05 18:21:00 100 mm[Hg] [facility] Heart rate 2022-12-05 18:21:00 77 /min [facility] Oxygen saturation in Arterial blood by Pulse oximetry 2022-12-05 18:21:00 98 /min [facility] Body temperature 2022-12-05 18:19:00 36.61 Annabella [facility] Respiratory rate 2022-12-05 18:19:00 18 /min [facility] Body height 2022-12-05 18:19:00 188 cm [facility] Body weight 2022-12-05 18:19:00 97.07 kg [facility] BMI 2022-12-05 18:19:00 27.48 kg/m2 [facility] Systolic blood pressure 2022-12-05 14:58:00 131 mm[Hg] [facility] Diastolic blood pressure 2022-12-05 14:58:00 93 mm[Hg] [facility] Heart rate 2022-12-05 14:50:00 86 /min [facility] Body temperature 2022-12-05 14:50:00 36.5 Annabella [facility] Respiratory rate 2022-12-05 14:50:00 18 /min [facility] Body height 2022-12-05 14:50:00 188 cm [facility] Body weight 2022-12-05 14:50:00 98.294 kg [facility] BMI 2022-12-05 14:50:00 27.82 kg/m2 [facility] Oxygen saturation in Arterial blood by Pulse oximetry 2022-12-05 14:50:00 99 /min [facility] Systolic blood pressure 2022-11-14 01:41:47 150 mm[Hg] [facility] Diastolic blood pressure 2022-11-14 01:41:47 106 mm[Hg] [facility] Heart rate 2022-11-14 01:41:47 64 /min [facility] Body temperature 2022-11-14 01:41:47 37.28 Annabella [facility] Respiratory rate 2022-11-14 01:41:47 18 /min [facility] Oxygen saturation in Arterial blood by Pulse oximetry 2022-11-14 01:41:47 98 /min [facility] Body height 2022-11-13 21:48:00 188 cm [facility] Body weight 2022-11-13 21:48:00 97.523 kg [facility] BMI 2022-11-13 21:48:00 27.60 kg/m2 [facility] Systolic blood pressure 2022-11-06 15:55:00 120 mm[Hg] [facility] Diastolic blood pressure 2022-11-06 15:55:00 76 mm[Hg] [facility] Heart rate 2022-11-06 15:55:00 67 /min [facility] Body temperature 2022-11-06 15:55:00 36.5 Annabella [facility] Body height 2022-11-06 15:55:00 188 cm [facility] Body weight 2022-11-06 15:55:00 97.523 kg [facility] BMI 2022-11-06 15:55:00 27.60 kg/m2 [facility] Oxygen saturation in Arterial blood by Pulse oximetry 2022-11-06 15:55:00 100 /min [facility] Systolic blood pressure 2022-08-07 19:14:00 110 mm[Hg] [facility] Diastolic blood pressure 2022-08-07 19:14:00 71 mm[Hg] [facility] Heart rate 2022-08-07 19:14:00 77 /min [facility] Body temperature 2022-08-07 19:14:00 36.94 Annabella [facility] Body height 2022-08-07 19:14:00 188 cm [facility] Body weight 2022-08-07 19:14:00 97.523 kg [facility] BMI 2022-08-07 19:14:00 27.60 kg/m2 [facility] Oxygen saturation in Arterial blood by Pulse oximetry 2022-08-07 19:14:00 100 /min [facility] Systolic blood pressure 2021-01-07 18:03:00 159 mm[Hg] hysterically crying and moving [facility] Diastolic blood pressure 2021-01-07 18:03:00 128 mm[Hg] hysterically crying and moving [facility] Heart rate 2021-01-07 18:03:00 109 /min [facility] Body temperature 2021-01-07 18:03:00 37.72 Annabella [facility] Respiratory rate 2021-01-07 18:03:00 18 /min [facility] Body weight 2021-01-07 18:03:00 113.399 kg [facility] BMI 2021-01-07 18:03:00 32.10 kg/m2 [facility] Oxygen saturation in Arterial blood by Pulse oximetry 2021-01-07 18:03:00 100 /min [facility] Systolic blood pressure 2021-01-07 18:03:00 159 mm[Hg] hysterically crying and moving [facility] Diastolic blood pressure 2021-01-07 18:03:00 128 mm[Hg] hysterically crying and moving [facility] Heart rate 2021-01-07 18:03:00 109 /min [facility] Body temperature 2021-01-07 18:03:00 37.72 Annabella [facility] Respiratory rate 2021-01-07 18:03:00 18 /min [facility] Body weight 2021-01-07 18:03:00 113.399 kg [facility] BMI 2021-01-07 18:03:00 32.10 kg/m2 [facility] Oxygen saturation in Arterial blood by Pulse oximetry 2021-01-07 18:03:00 100 /min [facility] Systolic blood pressure 2020-12-28 19:00:00 129 mm[Hg] [facility] Diastolic blood pressure 2020-12-28 19:00:00 83 mm[Hg] [facility] Heart rate 2020-12-28 19:00:00 71 /min [facility] Respiratory rate 2020-12-28 19:00:00 16 /min [facility] Oxygen saturation in Arterial blood by Pulse oximetry 2020-12-28 19:00:00 100 /min [facility] Body temperature 2020-12-28 17:10:00 36.28 Annabella [facility] Body height 2020-12-28 17:10:00 188 cm [facility] Body weight 2020-12-28 17:10:00 113.399 kg [facility] BMI 2020-12-28 17:10:00 32.10 kg/m2 [facility] Systolic blood pressure 2020-12-28 19:00:00 129 mm[Hg] [facility] Diastolic blood pressure 2020-12-28 19:00:00 83 mm[Hg] [facility] Heart rate 2020-12-28 19:00:00 71 /min [facility] Respiratory rate 2020-12-28 19:00:00 16 /min [facility] Oxygen saturation in Arterial blood by Pulse oximetry 2020-12-28 19:00:00 100 /min [facility] Body temperature 2020-12-28 17:10:00 36.28 Annabella [facility] Body height 2020-12-28 17:10:00 188 cm [facility] Body weight 2020-12-28 17:10:00 113.399 kg [facility] BMI 2020-12-28 17:10:00 32.10 kg/m2 [facility] Systolic blood pressure 2020-12-10 20:25:00 123 mm[Hg] [facility] Diastolic blood pressure 2020-12-10 20:25:00 81 mm[Hg] [facility] Heart rate 2020-12-10 20:25:00 66 /min [facility] Respiratory rate 2020-12-10 20:25:00 14 /min [facility] Oxygen saturation in Arterial blood by Pulse oximetry 2020-12-10 20:25:00 99 /min [facility] Body temperature 2020-12-10 16:12:00 37.22 Annabella [facility] Body height 2020-12-10 15:41:00 188 cm [facility] Body weight 2020-12-10 15:41:00 99.474 kg [facility] BMI 2020-12-10 15:41:00 28.16 kg/m2 [facility] Systolic blood pressure 2020-12-10 20:25:00 123 mm[Hg] [facility] Diastolic blood pressure 2020-12-10 20:25:00 81 mm[Hg] [facility] Heart rate 2020-12-10 20:25:00 66 /min [facility] Respiratory rate 2020-12-10 20:25:00 14 /min [facility] Oxygen saturation in Arterial blood by Pulse oximetry 2020-12-10 20:25:00 99 /min [facility] Body temperature 2020-12-10 16:12:00 37.22 Annabella [facility] Body height 2020-12-10 15:41:00 188 cm [facility] Body weight 2020-12-10 15:41:00 99.474 kg [facility] BMI 2020-12-10 15:41:00 28.16 kg/m2 [facility] Systolic blood pressure 2020-11-21 13:01:00 159 mm[Hg] [facility] Diastolic blood pressure 2020-11-21 13:01:00 100 mm[Hg] [facility] Heart rate 2020-11-21 13:01:00 72 /min [facility] Body temperature 2020-11-21 13:01:00 36.61 Annabella [facility] Respiratory rate 2020-11-21 13:01:00 18 /min [facility] Body weight 2020-11-21 13:01:00 97.523 kg [facility] BMI 2020-11-21 13:01:00 27.60 kg/m2 [facility] Oxygen saturation in Arterial blood by Pulse oximetry 2020-11-21 13:01:00 100 /min [facility] Systolic blood pressure 2020-11-21 13:01:00 159 mm[Hg] [facility] Diastolic blood pressure 2020-11-21 13:01:00 100 mm[Hg] [facility] Heart rate 2020-11-21 13:01:00 72 /min [facility] Body temperature 2020-11-21 13:01:00 36.61 Annabella [facility] Respiratory rate 2020-11-21 13:01:00 18 /min [facility] Body weight 2020-11-21 13:01:00 97.523 kg [facility] BMI 2020-11-21 13:01:00 27.60 kg/m2 [facility] Oxygen saturation in Arterial blood by Pulse oximetry 2020-11-21 13:01:00 100 /min [facility] Procedures Procedure Date / Time Performed Performing Clinician Source XR RIBS 3 VW LEFT 2024-07-17 20:06:47 Vijay Berman [facility] LIPASE 2024-07-17 19:41:00 [facility] TROPONIN I 2024-07-17 19:41:00 [facility] COMP. METABOLIC PANEL (29415) 2024-07-17 19:41:00 Vijay Berman [facility] CBC WITH DIFF 2024-07-17 19:41:00 Vijay Berman [facility] URINALYSIS 2024-07-17 19:41:00 [facility] N-TERMINAL PRO-BNP 2024-07-17 19:41:00 Vijay Berman [facility] HIV 1/2 AG-AB WITH REFLEX 2024-07-17 19:41:00 Cullen [facility] URINE DRUG (IMMUNOASSAY) - COMPREHENSIVE DRUG SCREEN W/O REFLEX 2024-07-17 19:41:00 Vijay Berman [facility] NAOMI,POST-VOID RES,US,NON-IMAGING 2024-03-17 16:52:00 Kaden Andrew [facility] POCT URINALYSIS AUTO 2024-03-17 00:00:00 Liliana Andrew [facility] POCT MOLECULAR FLU 2023-12-20 17:56:00 Unknown, Attend ing [facility] POCT SARS-COV-2 ANTIGEN (BINAX NOW) 2023-12-20 17:55:00 Kathy Lux [facility] POCT MOLECULAR STREP 2023-12-20 17:53:00 Unknown, [place] [facility] ASSIGNMENT OF BENEFITS 2023-08-22 15:32:30 Docto r Unassigned, [facility] XR CHEST 2 VW 2023-08-12 22:55:39 Zohra Prater [facility] XR NECK SOFT TISSUE 2023-08-12 22:55:39 Adelia Prater [facility] ASSIGNMENT OF BENEFITS 2023-08-12 22:21:13 Docto r Unassigned, [facility] CONSENT/REFUSAL FOR DIAGNOSIS AND TREATMENT 2023-08-12 21:44:30 Doctor Unassigned, [facility] XR CERVICAL SPINE 2 VW 2023-07-05 15:20:41 Jessy son, Eddie Hernández [facility] MR SHOULDER LEFT WO CONTRAST 2023-06-04 17:59:00 Dharmesh Higgins [facility] CONSENT/REFUSAL FOR DIAGNOSIS AND TREATMENT 2023-05-25 19:24:17 Doctor Unassigned, [facility] REFERRAL- REQUEST/RESPONSE 2023-05-16 06:01:00 Doctor Unassigned, [facility] XR SHOULDER 2+ VW LEFT 2023-04-30 16:27:10 Kayla Begum [facility] VACCINATIONS - CONSENTS, ELIGIBILITY, HISTORY 2022-12-20 05:01:00 Doctor Unassigned, [facility] COMP. METABOLIC PANEL (94463) 2022-12-11 23:36:00 Ivy Thakkar [facility] CBC WITH DIFF 2022-12-11 23:36:00 Ivy Thakkar [facility] URINALYSIS 2022-12-11 23:36:00 [facility] ([facility]UNOASSAY) - COMPREHENSIVE DRUG SCREEN W/O REFLEX 2022-12-11 23:36:00 Ivy Thakkar [facility] US SCROTUM AND CONTENTS 2022-12-11 23:27:01 Ivy Thakkar [facility] CONSENT/REFUSAL FOR DIAGNOSIS AND TREATMENT 2022-12-11 21:59:16 Doctor Unassigned, [facility] ASSIGNMENT OF BENEFITS 2022-12-08 21:05:34 Docto r Unassigned, [facility] LIPASE 2022-12-08 20:59:00 Amarilis Banuelos [facility] MAGNESIUM 2022-12-08 20:59:00 Amarilis Banuelos [facility] TROPONIN I 2022-12-08 20:59:00 Amarilis Banuelos [facility] THYROID STIMULATING HORMONE 2022-12-08 20:59:00 Amarilis Banuelos [facility] COMP. METABOLIC PANEL (27601) 2022-12-08 20:59:00 Amarilis Banuelos [facility] CBC WITH DIFF 2022-12-08 20:59:00 Amarilis Banuelos [facility] D-DIMER 2022-12-08 20:59:00 Amarilis Banuelos [facility] URINALYSIS 2022-12-08 20:59:00 Amarilis Banuelos [facility] URINE DRUG (IMMUNOASSAY) - COMPREHENSIVE DRUG SCREEN W/O REFLEX 2022-12-08 20:59:00 Amarilis Banuelos [facility] CONSENT/REFUSAL FOR DIAGNOSIS AND TREATMENT 2022-12-08 20:14:46 Doctor Unassigned, [facility] CT ABDOMEN PELVIS WO CONTRAST 2022-12-05 20:49:00 Kaden Andrew [facility] ASSIGNMENT OF BENEFITS 2022-12-05 20:38:36 Docto r Unassigned, [facility] EXTERNAL PROVIDER RECORDS 2022-11-27 05:01:00 Doctor Unassigned, [facility] US TESTICULAR TORSION 2022-11-13 23:53:44 Gaurav Esparza [facility] ASSIGNMENT OF BENEFITS 2022-11-13 23:53:42 Docto r Unassigned, [facility] BASIC METABOLIC PANEL (NA, K, CL, CO2, GLUCOSE, BUN, CREATININE, CA) 2022-11-13 23:02:00 Gaurav Esparza [facility] CBC WITH DIFF 2022-11-13 23:02:00 Gaurav Esparza [facility] URINALYSIS 2022-11-13 23:02:00 Gaurav Esparza [facility] NOTICE OF PRIVACY PRACTICES 2022-11-13 21:34:09 Doctor Unassigned, [facility] CONSENT/REFUSAL FOR DIAGNOSIS AND TREATMENT 2022-11-13 21:33:31 Doctor Unassigned, [facility] URINE CULTURE 2022-11-06 16:40:00 Alena Min [facility] POCT URINALYSIS 2022-11-06 16:30:00 Alena Min [facility] AUTHORIZATION TO RELEASE PHI TO [facility] 2022-11-06 05:01:00 Doctor Unassigned, [facility] CONSENT/REFUSAL FOR DIAGNOSIS AND TREATMENT 2021-01-07 17:59:07 Doctor Unassigned, [facility] CT ABDOMEN PELVIS W CONTRAST 2020-12-28 18:45:34 Alvarez Archer [facility] LIPASE 2020-12-28 17:39:00 Alvarez Archer [facility] COMP. METABOLIC PANEL ([id number]) 2020-12-28 17:39:00 Alvarez Archer [facility] CBC WITH DIFF 2020-12-28 17:39:00 Alvarez Archer [facility] URINALYSIS 2020-12-28 17:39:00 [facility] CONSENT/REFUSAL FOR DIAGNOSIS AND TREATMENT 2020-12-28 16:58:57 Doctor Unassigned, [facility] PROTHROMBIN TIME / INR 2020-12-10 15:10:00 Rashawn Berman [facility] ACTIVATED PARTIAL THRMPLAS JENNIFER 2020-12-10 15:10:00 Vijay Berman [facility] URINE DRUG (IMMUNOASSAY) - COMPREHENSIVE DRUG SCREEN 2020-12-10 13:45:00 Vijay Berman [facility] URINALYSIS 2020-12-10 13:45:00 [facility]ij[facility] COVID-19 (ID NOW RAPID TESTING) 2020-12-10 12:46:00 Vijay Berman [facility] SALICYLATE 2020-12-10 12:18:00 Vijay [facility] LACTIC ACID WHOLE BLOOD 2020-12-10 12:15:00 Do gladys Berman [facility] LIPASE 2020-12-10 12:13:00 Vijay Berman [facility] MAGNESIUM 2020-12-10 12:13:00 Vijay [facility] HEPATIC FUNCTION PANEL ([id number]) (ALB,T.PRO,BILI T,BU/BC,ALT,AST,ALK PHOS) 2020-12-10 12:13:00 Vijay Berman [facility] BASIC METABOLIC PANEL (NA, K, CL, CO2, GLUCOSE, BUN, CREATININE, CA) 2020-12-10 12:13:00 Vijay Berman [facility] ETHANOL 2020-12-10 12:13:00 Vijay [facility] CBC WITH DIFF 2020-12-10 12:13:00 Vijay Berman [facility] HB ECG ROUTINE & RHYTHM STRIP 2020-12-10 12:01:59 Vijay Berman [facility] CONSENT/REFUSAL FOR DIAGNOSIS AND TREATMENT 2020-12-10 11:46:13 Doctor Unassigned, [facility] NOTICE OF PRIVACY PRACTICES 2020-11-21 12:58:09 Doctor Unassigned, [facility] CONSENT/REFUSAL FOR DIAGNOSIS AND TREATMENT 2020-11-21 12:57:43 Doctor Unassigned, [facility] Encounters Start Date/Time End Date/Time Encounter Type Admission Type Attending Clinicians Care Facility Care Department Encounter ID Source 2024-10-13 16:30:00 2024-10-13 16:30:00 Outpatient ALENA PENNINGTON [facility] [id number] [facility] 2024-09-29 15:00:00 2024-09-29 15:32:18 Outpatient SARAH WILKERSON [facility] [id number] [facility] 2024-09-29 00:00:00 2024-09-29 15:15:59 Patient Secure Msg Doctor Unassigned, [facility] Doctor Unassigned, [facility] 1.2.840.114 350.1.13.10 4.2.7.2.686 [id number] [facility] 2024-09-29 15:00:00 2024-09-29 15:15:00 Nurse Sane Visit Lab, Sarah [facility], Critical access hospital?[facility] 1.2.840.114 350.1.13.10 4.2.7.2.686 [id number] [facility] 2024-09-28 15:00:00 2024-09-28 15:18:24 Outpatient SARAH WILKERSON [facility] [id number] [facility] 2024-09-28 15:00:00 2024-09-28 15:18:24 Nurse Sane Visit Lab, Sarah [facility], Critical access hospital?[facility] 1.2.840.114 350.1.13.10 4.2.7.2.686 [id number] [facility] 2024-09-23 17:00:00 2024-09-23 17:04:28 Outpatient SARAH WILKERSON [facility] [id number] [facility] 2024-09-13 16:40:00 2024-09-13 16:40:00 Outpatient R GERSON KING [facility] [id number] [facility] 2024-09-12 12:40:00 2024-09-12 14:50:10 Outpatient R MICHELLE LEVINIRENE [facility] [id number] [facility] 2024-01-20 00:00:00 2024-08-22 07:18:18 Orders Only Espinosa, Sully Espinosa, Sully [facility] GIOVANNY?[facility] 1.2.840.114 350.1.13.10 4.2.7.2.686 [id number] [facility] 2024-01-20 00:00:00 2024-08-22 07:17:58 Orders Only Espinosa, Sully Espinosa, Sully [facility] GIOVANNY?[facility] 1.2.840.114 350.1.13.10 4.2.7.2.686 [id number] [facility] 2022-12-12 00:00:00 2024-08-22 02:40:55 Orders Only Espinosa, Sully Espinosa, Sully [facility] GIOVANNY?[facility] 1.2.840.114 350.1.13.10 4.2.7.2.686 [id number] [facility] 2023-03-12 00:00:00 2024-08-22 02:39:05 Orders Only Espinosa, Sully Espinosa, Sully [facility] GIOVANNY?[facility] 1.2.840.114 350.1.13.10 4.2.7.2.686 [id number] [facility] 2023-03-12 00:00:00 2024-08-22 02:39:05 Orders Only Espinosa, Sully Espinosa, Sully [facility] GIOVANNY?[facility] 1.2.840.114 350.1.13.10 4.2.7.2.686 [id number] [facility] 2023-07-29 00:00:00 2024-08-22 02:35:45 Orders Only Sully Espinosa [facility] 1.2.840.114 350.1.13.10 4.2.7.2.686 [id number] [facility] 2024-08-03 00:00:00 2024-08-07 17:08:57 Refill Mechelle Alena [facility] 1.2.840.114 350.1.13.10 4.2.7.2.686 [id number] [facility] 2024-08-05 16:30:00 2024-08-05 16:30:00 Outpatient ALENA PENNINGTON [facility] [id number] [facility] 2024-07-17 13:18:00 2024-07-17 16:08:00 Emergency X VIJAY BERMAN DONNELL [facility] ERT [id number] [facility] 2024-07-17 13:18:00 2024-07-17 16:08:00 Emergency Vijay Berman [facility] 1..840.114 350.1.13.10 4.2.7.2.686 [id number] [facility] 2024-07-15 08:00:00 2024-07-15 08:00:00 Outpatient ALENA PENNINGTON [facility] [id number] [facility] 2024-05-05 16:00:00 2024-05-05 16:00:00 Outpatient MAGALI SANDOVAL LUCAS [facility] [id number] [facility] 2024-04-08 00:00:00 2024-04-08 13:53:11 Letter (Out) Diseases-[place] mb, Infectious Diseases-[place], Infectious [facility] 1.2840.114 350.1.13.10 4.2.7.2.686 [id number] [facility] 2024-03-27 14:30:00 2024-03-27 14:30:00 Outpatient R SHAUNNA DONATO [facility] [id number] [facility] 2024-03-17 11:30:00 2024-03-17 13:01:00 [facility] [id number] 2024-03-17 11:30:00 2024-03-17 13:01:00 [facility] 1..840.114 350.1.13.10 4.2.7.2.686 [id number] [facility] 2024-03-09 00:00:00 2024-03-09 13:27:08 Letter (Out) [facility] 1.2.840.114 350.1.13.10 4.2.7.2.686 [id number] [facility] 2024-03-06 17:29:55 2024-03-06 17:29:55 Outpatient [facility] [id number] Marty Zeinab Chava 2024-03-04 00:00:00 2024-03-05 18:04:57 Telephone Shaunna Donato [facility] 1.2.840.114 350.1.13.10 4.2.7.2.686 [id number] [facility] 2024-03-02 00:00:00 2024-03-03 09:49:39 Kayla Aguilar [facility] 1.2.840.114 350.1.13.10 4.2.7.2.686 [id number] [facility] 2024-02-06 11:00:00 2024-02-06 11:00:00 Outpatient R KAYLA GRIMES [facility] [id number] [facility] 2024-01-23 13:00:00 2024-01-23 13:00:00 Outpatient R KAYLA GRIMES [facility] [id number] [facility] 2024-01-22 17:25:37 2024-01-22 17:25:37 Outpatient [facility] [id number] Marty Larsen 2024-01-21 14:20:00 2024-01-21 14:20:00 Outpatient R KAYLA GRIMES [facility] [id number] [facility] 2023-12-25 00:00:00 2023-12-25 12:40:04 Refill Kathy Lux [facility] 1.2.840.114 350.1.13.10 4.2.7.2.686 [id number] [facility] 2023-12-24 00:00:00 2023-12-25 09:44:00 Telephone Kayla Grimes [facility] 1.2.840.114 350.1.13.10 4.2.7.2.686 [id number] [facility] 2023-12-20 11:40:00 2023-12-20 13:33:48 Outpatient R KATHY LUX [facility] [id number] [facility] 2023-12-20 11:40:00 2023-12-20 12:00:00 Urgent Care Kathy Lux Unknown, Attending [facility] 1.2.840.114 350.1.13.10 4.2.7.2.686 [id number] [facility] 2023-12-12 13:40:00 2023-12-12 13:40:00 Outpatient KAYLA CLANCY [facility] [id number] [facility] 2023-12-05 00:00:00 2023-12-05 13:39:41 Telephone Kayla Grimes [facility] 1.2.840.114 350.1.13.10 4.2.7.2.686 [id number] [facility] 2023-11-01 15:15:00 2023-11-01 15:15:00 Outpatient EDDIE MIRANDA [facility] [id number] [facility] 2023-10-30 11:00:00 2023-10-30 11:00:00 Outpatient KAYLA CLANCY [facility] [id number] [facility] 2023-10-30 00:00:00 2023-10-30 00:00:00 Telephone Je Nicole Kvng GIMENEZ 1.2.840.114 350.1.13.10 4.2.7.2.686 [id number] [facility] 2023-10-23 00:00:00 2023-10-23 00:00:00 Pre Visit Outreach Alexandrea Barber 1.2.840.114 350.1.13.10 4.2.7.2.686 [id number] [facility] 2023-10-22 16:00:00 2023-10-22 16:00:00 Outpatient EDDIE MIRANDA [facility] [id number] [facility] 2023-10-09 00:00:00 2023-10-09 00:00:00 Refill Kayla Grimes [facility] 1.840.114 350.1.13.10 4.2.7.2.686 [id number] [facility] 2023-09-16 00:00:00 2023-09-16 00:00:00 Telephone Nicole WootenJosue [place] [facility] 1.840.114 350.1.13.10 4.2.7.2.686 [id number] [facility] 2023-09-10 11:00:00 2023-09-10 11:00:00 Outpatient R [facility] [id number] [facility] 2023-09-10 00:00:00 2023-09-10 00:00:00 Case Management Sebastian Rea [facility] BUILD[facility] 1.840.114 350.1.13.10 4.2.7.2.686 [id number] [facility] 2023-09-05 00:00:00 2023-09-05 00:00:00 Telephone Nicole Wooten [place] 1.20.114 350.1.13.10 4.2.7.2.686 [id number] [facility] 2023-09-03 15:15:00 2023-09-03 15:15:00 Outpatient R [facility] [id number] [facility] 2023-08-28 08:45:00 2023-08-28 08:45:00 Outpatient R LORENA SAAVEDRA CRAIG [facility] [id number] [facility] 2023-08-28 00:00:00 2023-08-28 00:00:00 Telephone Nicole Wooten [place] 1.20.114 350.1.13.10 4.2.7.2.686 [id number] [facility] 2023-08-26 00:00:00 2023-08-26 00:00:00 Telephone Nicole Wooten 1.2.840.114 350.1.13.10 4.2.7.2.686 [id number] [facility] 2023-08-23 00:00:00 2023-08-23 00:00:00 Telephone Nicole Wooten 1.2.840.114 350.1.13.10 4.2.7.2.686 [id number] [facility] 2023-08-22 08:45:00 2023-08-22 09:30:00 Ancillary Visit Sebastian [facility] 1.2.840.114 350.1.13.10 4.2.7.2.686 [id number] [facility] 2023-08-22 00:00:00 2023-08-22 00:00:00 Orders Only Doctor Unassigned[facility] 1.2.840.114 350.1.13.10 4.2.7.2.686 [id number] [facility] 2023-08-16 09:30:00 2023-08-16 10:15:00 Ancillary Visit Sebastian Rea [facility] 1.2.840.114 350.1.13.10 4.2.7.2.686 [id number] [facility] 2023-08-12 15:58:00 2023-08-12 18:23:00 Emergency X ZOHRA PRATER [facility] E[facility] [id number] [facility] 2023-08-12 15:58:00 2023-08-12 18:23:00 Emergency Zohra Prater [facility] 1.2.840.114 350.1.13.10 4.2.7.2.686 [id number] [facility] 2023-08-09 08:00:00 2023-08-09 09:22:33 Ancillary Visit Val Bell Craig L [facility] 1.2.840.114 350.1.13.10 4.2.7.2.686 [id number] [facility] 2023-08-09 00:00:00 2023-08-09 00:00:00 Telephone Nicole Wooten [facility] 1..840.114 350.1.13.10 4.2.7.2.686 [id number] [facility] 2023-08-06 11:19:47 2023-08-06 11:19:47 Outpatient [facility] [id number] Marty Larsen 2023-08-06 11:00:00 2023-08-06 11:00:00 Outpatient R KAYLA GRIMES [facility] [id number] [facility] 2023-08-02 08:45:00 2023-08-02 08:45:00 Outpatient R [facility] [id number] [facility] 2023-07-26 00:00:00 2023-07-26 00:00:00 Telephone Nicole Wooten [place] 1..840.114 350.1.13.10 4.2.7.2.686 [id number] [facility] 2023-07-25 13:40:52 2023-07-25 13:40:52 Outpatient SFA [facility] [id number] Marty Arriola Chava 2023-07-19 09:30:00 2023-07-19 09:30:00 Outpatient R EDDIE DAVIS [facility] [id number] [facility] 2023-07-12 10:23:23 2023-07-12 10:23:23 Outpatient SFA [facility] [id number] Marty Larsen 2023-07-11 00:00:00 2023-07-11 00:00:00 Telephone Nicole Wooten 1.2.840.114 350.1.13.10 4.2.7.2.686 [id number] [facility] 2023-07-05 09:14:31 2023-07-05 23:59:00 Outpatient EDDIE MIRANDA [facility] [id number] [facility] 2023-07-05 09:14:31 2023-07-05 23:59:00 Hospital Encounter Eddie Davis [facility] 1.2.840.114 350.1.13.10 4.2.7.2.686 [id number] [facility] 2023-07-05 09:30:00 2023-07-05 09:50:18 Office Visit Eddie Davis [facility] 1.2.840.114 350.1.13.10 4.2.7.2.686 [id number] [facility] 2023-06-12 00:00:00 2023-06-12 00:00:00 Telephone Eddie Davis [facility] 1.2.840.114 350.1.13.10 4.2.7.2.686 [id number] [facility] 2023-06-07 10:58:30 2023-06-07 10:58:30 Outpatient [facility] [id number] Marty Larsen 2023-06-06 14:15:00 2023-06-06 14:33:21 Outpatient LORENA TERAN CRAIG [facility] [id number] [facility] 2023-06-06 14:15:00 2023-06-06 14:33:21 Office Visit Lorena Saavedra [facility] 1.2.114 350.1.13.10 4.2.7.2.686 [id number] [facility] 2023-06-05 00:00:00 2023-06-05 00:00:00 Patient Secure Msg Doctor Unassigned, [facility] 1.20.114 350.1.13.10 4.2.7.2.686 [id number] [facility] 2023-06-04 10:58:16 2023-06-04 23:59:00 Outpatient R DHARMESH HIGGINS [facility] [id number] [facility] 2023-06-04 10:58:16 2023-06-04 23:59:00 Hospital Encounter Dharmesh Higgins [facility] 1.0.114 350.1.13.10 4.2.7.2.686 [id number] [facility] 2023-05-27 00:00:00 2023-05-27 00:00:00 Telephone Nicole Wooten [facility] 1..114 350.1.13.10 4.2.7.2.686 [id number] [id number] [facility] 2023-05-26 09:40:00 2023-05-26 09:40:00 Outpatient R [facility] [id number] [facility] 2023-05-25 13:37:00 2023-05-25 14:30:00 Emergency X GORDON [facility] [id number] [facility] 2023-05-25 13:37:00 2023-05-25 14:30:00 Emergency Gordon [place] [facility] 1.840.114 350.1.13.10 4.2.7.2.686 [id number] [facility] 2023-05-24 15:40:00 2023-05-24 15:40:00 Outpatient KAYLA CLANCY [facility] [id number] [facility] 2023-05-22 00:00:00 2023-05-22 00:00:00 Telephone [facility] 1.840.114 350.1.13.10 4.2.7.2.686 [id number] [facility] 2023-05-22 00:00:00 2023-05-22 00:00:00 Patient Secure Msg Doctor Unassigned, [facility] 1.84.114 350.1.13.10 4.2.7.2.686 [id number] [facility] 2023-05-21 00:00:00 2023-05-21 00:00:00 Telephone Dharmesh Higgins [facility] 1.84.114 350.1.13.10 4.2.7.2.686 [id number] [facility] 2023-05-17 09:07:43 2023-05-17 09:07:43 Outpatient [facility] [id number] Marty Larsen 2023-05-17 00:00:00 2023-05-17 00:00:00 Telephone Nicole Wooten 1..114 350.1.13.10 4.2.7.2.686 [id number] [facility] 2023-05-16 09:30:00 2023-05-16 10:00:00 Office Visit Dharmesh Higgins [facility] 1.84.114 350.1.13.10 4.2.7.2.686 [id number] [facility] 2023-05-16 09:30:00 2023-05-16 09:46:59 Outpatient DHARMESH MDCONALD [facility] [id number] [facility] 2023-05-16 00:00:00 2023-05-16 00:00:00 Orders Only Doctor Unassigned, [facility] 1.2.840.114 350.1.13.10 4.2.7.2.686 [id number] [facility] 2023-05-10 11:00:00 2023-05-10 11:00:00 Outpatient DHARMESH MCDONALD [facility] [id number] [facility] 2023-05-03 11:23:35 2023-05-03 11:23:35 Outpatient [facility] [id number] Marty Arriola Chava 2023-05-01 00:00:00 2023-05-01 00:00:00 Telephone [place] Nicoleshalini [facility] 1.2.840.114 350.1.13.10 4.2.7.2.686 [id number] 086 [id number] [facility] 2023-05-01 00:00:00 2023-05-01 00:00:00 Telephone WootenRajwinder harrisonody Kvng [facility] 1.2.840.114 350.1.13.10 4.2.7.2.686 [id number] 086 [id number] [facility] 2023-05-01 00:00:00 2023-05-01 00:00:00 Telephone Nicole Wooten [facility] [place] [facility] 1.2.840.114 350.1.13.10 4.2.7.2.686 [id number] 086 [id number] [facility] 2023-04-30 11:15:20 2023-04-30 23:59:00 Outpatient KAYLA CLANCY [facility] [id number] [facility] 2023-04-30 11:15:20 2023-04-30 23:59:00 Hospital Encounter Kayla Grimes [facility] 1.284.114 350.1.13.10 4.2.7.2.686 [id number] [facility] 2023-04-30 10:20:00 2023-04-30 11:39:43 Office Visit Kayla Grimes [facility]?JEANINE [facility] 1.2840.114 350.1.13.10 4.2.7.2.686 [id number] 044 [id number] [facility] 2023-04-30 11:14:49 2023-04-30 11:14:49 Hospital Encounter Kayla Grimes [facility] 1.284.114 350.1.13.10 4.2.7.2.686 [id number] [facility] 2023-04-30 08:58:42 2023-04-30 08:58:42 Outpatient [facility] [id number] Marty Larsen 2023-04-28 17:00:00 2023-04-28 17:00:00 Outpatient R [facility] [id number] [facility] 2023-04-25 14:30:00 2023-04-25 14:30:00 Outpatient R [facility] [id number] [facility] 2023-04-24 00:00:00 2023-04-24 00:00:00 Telephone Tylor Newman [facility] 1.840.114 350.1.13.10 4.2.7.2.686 [id number] 072 [id number] [facility] 2023-04-24 00:00:00 2023-04-24 00:00:00 Telephone Nicole Wooten 1.0.114 350.1.13.10 4.2.7.2.686 [id number] 086 [id number] [facility] 2023-04-23 15:40:00 2023-04-23 16:11:36 Outpatient R SYDNEY KAYLA [facility] [id number] [facility] 2023-04-23 15:40:00 2023-04-23 16:11:36 Office Visit Kayla Grimes Geeta [facility] 1..114 350.1.13.10 4.2.7.2.686 [id number] 044 [id number] [facility] 2023-04-17 00:00:00 2023-04-17 00:00:00 Telephone Nicole Wooten 1..114 350.1.13.10 4.2.7.2.686 [id number] 086 [id number] [facility] 2023-04-16 13:21:44 2023-04-16 13:21:44 Outpatient SFA [facility] [id number] Marty Larsen 2023-04-16 00:00:00 2023-04-16 00:00:00 [facility]ill [facility] 1.114 350.1.13.10 4.2.7.2.686 [id number] 044 [id number] [facility] 2023-04-16 00:00:00 2023-04-16 00:00:00 Refill Sydney KeniaKayla [facility] 1.114 350.1.13.10 4.2.7.2.686 [id number] 044 [id number] [facility] 2023-04-16 00:00:00 2023-04-16 00:00:00 Telephone [place] 1.0.114 350.1.13.10 4.2.7.2.686 [id number] [id number] [facility] 2023-04-12 11:00:00 2023-04-12 11:00:00 Outpatient R KAYLA GRIMES [facility] [id number] [facility] 2023-04-10 13:40:00 2023-04-10 13:40:00 Outpatient R KAYLA GRIMES [facility] [id number] [facility] 2023-04-04 08:41:26 2023-04-04 08:41:26 Outpatient SFA SFA [id number] Marty Larsen 2023-03-13 08:40:00 2023-03-13 08:40:00 Outpatient R KAYLA GRIMES [facility] [id number] [facility] 2023-03-11 00:00:00 2023-03-11 00:00:00 Patient Secure Mskalen Kayla Grimes [facility]?JE[facility]INE [facility] 1.2.840.114 350.1.13.10 4.2.7.2.686 [id number] 044 [id number] [facility] 2023-03-11 00:00:00 2023-03-11 00:00:00 RefTylor Thakur [facility] 1..840.114 350.1.13.10 4.2.7.2.686 [id number] [id number] [facility] 2023-03-07 08:47:58 2023-03-07 08:47:58 Outpatient SFA SFA [id number] Marty Larsen 2023-01-03 14:00:00 2023-01-03 14:52:06 Outpatient R EDILIA NOLASCO [facility] [id number] [facility] 2023-01-03 14:00:00 2023-01-03 14:52:06 Office Visit Tylor Newman [facility] 1..840.114 350.1.13.10 4.2.7.2.686 [id number] 072 [id number] [facility] 2023-01-02 13:00:00 2023-01-02 13:00:00 Outpatient R LORRIE [facility] [id number] [facility] 2023-01-02 10:30:00 2023-01-02 10:30:00 Outpatient R LORRIE [facility] [id number] [facility] 2022-12-31 00:00:00 2022-12-31 00:00:00 Refill Mechelle Counts include 234 beds at the [facility]?JEANINE [facility] 1..840.114 350.1.13.10 4.2.7.2.686 [id number] 044 [id number] [facility] 2022-12-30 00:00:00 2022-12-30 00:00:00 Refill Mechelle Counts include 234 beds at the [facility] 1..840.114 350.1.13.10 4.2.7.2.686 [id number] 044 [id number] [facility] 2022-12-28 12:45:00 2022-12-28 12:45:00 Outpatient R SULMA PEREZ [facility] [id number] [facility] 2022-12-26 11:20:00 2022-12-26 11:20:00 Outpatient R KAYLA GRIMES [facility] [id number] [facility] 2022-12-20 00:00:00 2022-12-20 00:00:00 Orders Only Doctor Unassigned, [facility] 1..840.114 350.1.13.10 4.2.7.2.686 [id number] [id number] [facility] 2022-12-17 00:00:00 2022-12-17 00:00:00 Patient Secure Msg [place] [facility] 1.84.114 350.1.13.10 4.2.7.2.686 [id number] 044 [id number] [facility] 2022-12-17 00:00:00 2022-12-17 00:00:00 Patient Outreach Sheila Magallanes [facility] 1..114 350.1.13.10 4.2.7.2.686 [id number] 044 [id number] [facility] 2022-12-13 00:00:00 2022-12-13 00:00:00 Telephone Sydney Kayla [facility] 1.84.114 350.1.13.10 4.2.7.2.686 [id number] 044 [id number] [facility] 2022-12-12 15:20:00 2022-12-12 16:04:33 Outpatient R KAYLA GRIMES [facility] [id number] [facility] 2022-12-12 15:20:00 2022-12-12 16:04:33 Office Visit Sydney MelissaKayla Geeta [facility] 1.84.114 350.1.13.10 4.2.7.2.686 [id number] 044 [id number] [facility] 2022-12-11 17:05:00 2022-12-11 20:26:00 Emergency X IVY THAKKAR [facility] [id number] [facility] 2022-12-11 17:05:00 2022-12-11 20:26:00 Emergency Ivy Thakkar F [facility] 1.84.114 350.1.13.10 4.2.7.2.686 [id number] 084 [id number] [facility] 2022-12-11 09:30:00 2022-12-11 09:30:00 [facility] [id number] 2022-12-08 15:30:00 2022-12-08 18:50:00 Emergency X AMARILIS BANUELOS [facility] E[facility] [id number] [facility] 2022-12-08 15:30:00 2022-12-08 18:50:00 Emergency Amarilis Banuelos G [facility] 1.2.840.114 350.1.13.10 4.2.7.2.686 [id number] 084 [id number] [facility] 2022-12-06 00:00:00 2022-12-06 00:00:00 Patient Secure Alena Long [facility] 1.2.840.114 350.1.13.10 4.2.7.2.686 [id number] 044 [id number] [facility] 2022-12-06 00:00:00 2022-12-06 00:00:00 Telephone [facility] 1.2.840.114 350.1.13.10 4.2.7.2.686 [id number] [facility] 2022-12-05 15:30:00 2022-12-05 23:59:00 Hospital Encounter [facility] 1.2.840.114 350.1.13.10 4.2.7.2.686 [id number] [facility] 2022-12-05 13:30:00 2022-12-05 15:18:12 Office Visit [facility] 1.2.840.114 350.1.13.10 4.2.7.2.686 [id number] [facility] 2022-12-05 10:20:00 2022-12-05 10:20:00 Office Visit Kayla Grimes [facility] 1.2.840.114 350.1.13.10 4.2.7.2.686 [id number] 044 [id number] [facility] 2022-12-05 10:20:00 2022-12-05 10:16:52 Outpatient R KAYLA GRIMES [facility] [id number] [facility] 2022-12-05 08:45:00 2022-12-05 08:45:00 Outpatient R PRIYANKA RIVERA [facility] [id number] [facility] 2022-12-05 00:00:00 2022-12-05 00:00:00 Orders Only Doctor Unassigned, [facility] 1.840.114 350.1.13.10 4.2.7.2.686 [id number] [id number] [facility] 2022-12-04 00:00:00 2022-12-04 00:00:00 Telephone Jena Veloz 1..840.114 350.1.13.10 4.2.7.2.686 [id number] 086 [id number] [facility] 2022-11-27 15:30:00 2022-11-27 16:29:39 Outpatient R KADEN ANDREW [facility] [id number] [facility] 2022-11-27 00:00:00 2022-11-27 00:00:00 Orders Only Doctor Unassigned, [facility] 1..840.114 350.1.13.10 4.2.7.2.686 [id number] [id number] [facility] 2022-11-21 00:00:00 2022-11-21 00:00:00 Patient Secure Msg Doctor Unassigned, [facility] 1.114 350.1.13.10 4.2.7.2.686 [id number] 019 [id number] [facility] 2022-11-20 08:00:00 2022-11-20 08:00:00 Outpatient R BERNARDO DUGGAN [facility] [id number] [facility] 2022-11-14 00:00:00 2022-11-14 00:00:00 Telephone [facility]le [facility]JOSEKvng [facility] 1.114 350.1.13.10 4.2.7.2.686 [id number] 044 [id number] [facility] 2022-11-13 16:53:00 2022-11-13 20:55:00 Emergency X GAURAV ESPARZA [facility] [id number] [facility] 2022-11-13 16:53:00 2022-11-13 20:55:00 Emergency Gaurav Esparza [facility] 1..114 350.1.13.10 4.2.7.2.686 [id number] 084 [id number] [facility] 2022-11-13 08:00:00 2022-11-13 08:15:00 Nurse Sane Visit Lab, [place] Alena [facility]?JEANINE [facility] 1.114 350.1.13.10 4.2.7.2.686 [id number] [facility] 2022-11-13 08:00:00 2022-11-13 08:00:00 Outpatient R ALENA MIN [facility] [id number] [facility] 2022-11-13 00:00:00 2022-11-13 00:00:00 Telephone Mechelle Alena [facility]?JEANINE [facility] 1.84114 350.1.13.10 4.2.7.2.686 [id number] 044 [id number] [facility] 2022-11-12 12:00:00 2022-11-12 12:00:00 Outpatient R [facility] [id number] [facility] 2022-11-12 00:00:00 2022-11-12 00:00:00 Telephone Alena Min [facility]?JEANINE [facility] 1.2840.114 350.1.13.10 4.2.7.2.686 [id number] 044 [id number] [facility] 2022-11-12 00:00:00 2022-11-12 00:00:00 Telephone Alena Min [facility]JEANINE [facility] 1.2840.114 350.1.13.10 4.2.7.2.686 [id number] 044 [id number] [facility] 2022-11-12 00:00:00 2022-11-12 00:00:00 Telephone Alena Min [facility]JEANINE [facility] 1.2840.114 350.1.13.10 4.2.7.2.686 [id number] 044 [id number] [facility] 2022-11-09 00:00:00 2022-11-09 00:00:00 Telephone Alena Min [facility]INE [facility] 1.2840.114 350.1.13.10 4.2.7.2.686 [id number] 044 [id number] [facility] 2022-11-07 00:00:00 2022-11-07 00:00:00 Telephone Alena Min [facility] 1.2840.114 350.1.13.10 4.2.7.2.686 [id number] 044 [id number] [facility] 2022-11-06 11:00:00 2022-11-06 12:34:42 Outpatient R ALENA MIN [facility] [id number] [facility] 2022-11-06 11:00:00 2022-11-06 12:34:42 Office Visit Alena Min [facility] 1..840.114 350.1.13.10 4.2.7.2.686 [id number] 044 [id number] [facility] 2022-11-06 00:00:00 2022-11-06 00:00:00 Orders Only Doctor Unassigned, [facility] 1..840.114 350.1.13.10 4.2.7.2.686 [id number] [facility] 2022-11-02 15:30:00 2022-11-02 15:30:00 Outpatient R ALENA MIN [facility] [id number] [facility] 2022-10-22 00:00:00 2022-10-22 00:00:00 [facility] 1..840.114 350.1.13.10 4.2.7.2.686 [id number] 044 [id number] [facility] 2022-08-21 09:30:00 2022-08-21 09:30:00 Outpatient R ALENA MIN [facility] [id number] [facility] 2022-08-07 13:00:00 2022-08-07 13:48:52 Outpatient R ALENA MIN [facility] [id number] [facility] 2022-08-07 13:00:00 2022-08-07 13:48:52 Office Visit Alena Min [facility]?JEANINE [facility] 1.2.840.114 350.1.13.10 4.2.7.2.686 [id number] 044 [id number] [facility] 2022-08-07 00:00:00 2022-08-07 00:00:00 Telephone Alena Min [facility] 1.2.840.114 350.1.13.10 4.2.7.2.686 [id number] 044 [id number] [facility] 2021-01-07 13:07:00 2021-01-07 13:25:00 Emergency Thi Trent [facility] 1.2.840.114 350.1.13.10 4.2.7.2.686 [id number] 084 [id number] 2021-01-07 13:07:00 2021-01-07 13:25:00 Emergency Thi Trent [facility] 1.2.840.114 350.1.13.10 4.2.7.2.686 [id number] 084 [id number] [facility] 2021-01-07 12:59:00 2021-01-07 12:59:00 Emergency X [facility] [id number] [facility] 2021-01-07 00:00:00 2021-01-07 00:00:00 Orders Only Doctor Unassigned, [facility] 1.2.840.114 350.1.13.10 4.2.7.2.686 [id number] 2021-01-07 00:00:00 2021-01-07 00:00:00 Orders Only Doctor Unassigned, [facility] 1.2.840.114 350.1.13.10 4.2.7.2.686 [id number] [id number] [facility] 2020-12-28 12:12:00 2020-12-28 14:45:00 Emergency Alvarez Archer [facility] 1.2.840.114 350.1.13.10 4.2.7.2.686 [id number] 084 [id number] 2020-12-28 12:12:00 2020-12-28 14:45:00 Emergency Alvarez Archerge [facility] 1.2.840.114 350.1.13.10 4.2.7.2.686 [id number] [id number] [facility] 2020-12-28 11:59:00 2020-12-28 11:59:00 Emergency X [facility] [id number] [facility] 2020-12-10 06:50:00 2020-12-10 15:30:00 Emergency Vijay Berman Abdisabellevictorino [facility] 1.2.840.114 350.1.13.10 4.2.7.2.686 [id number] [id number] 2020-12-10 06:50:00 2020-12-10 15:30:00 Emergency Rashawn Bermanshayy Amadorvictorino [facility] 1.2.840.114 350.1.13.10 4.2.7.2.686 [id number] [facility] 2020-12-10 06:47:00 2020-12-10 06:47:00 Emergency X [facility] [id number] [facility] 2020-12-10 00:00:00 2020-12-10 00:00:00 Orders Only Doctor Unassigned, [facility] 1.2.840.114 350.1.13.10 4.2.7.2.686 [id number] 2020-12-10 00:00:00 2020-12-10 00:00:00 Orders Only Doctor Unassigned, [facility] 1.2.840.114 350.1.13.10 4.2.7.2.686 [id number] 009 [id number] [facility] 2020-11-21 08:03:00 2020-11-21 08:39:00 Emergency Daljit Velasco [facility] 1.2.840.114 350.1.13.10 4.2.7.2.686 [id number] 084 [id number] 2020-11-21 08:03:00 2020-11-21 08:39:00 Emergency Daljit Velasco [facility] 1.2.840.114 350.1.13.10 4.2.7.2.686 [id number] 084 [id number] [facility] 2020-11-21 08:03:00 2020-11-21 08:03:00 Emergency X DALJIT VELASCO [facility] [id number] [facility] Results Test Description Test Time Test Comments Results Result Co mments Source [facility] [id number] 20:59:45EXAM: XR LEFT RIB 7 VIEWS WITH PA CHEST DATE: 07/17/2024 1:45 PM INDICATION: Left chest pain COMPARISON: Chest radiograph 12/08/2022 TECHNIQUE: PA chest; frontal and oblique views of the bilateral ribs FINDINGS: ?No acute fracture or malalignment is identified. The visualized lungs are clear without pneumothorax.[facility] [id number] 20:49:28* Test Item Value Reference Range Interpretation Comme nts NT-proBNP (test code = 55071-4) <=125 Lab Interpretation (test cod e = 70107-2) Normal [facility] [id number] 20:31:55* Test Item Value Reference Range Interpretation Comme nts TROPONIN I (test code = 5976242178) 0.004 ng/mL <=0.034 DESIREE (test code = [...] of biotin. Lab Interpretation (test code = 67191-3) Normal [facility] (88059)2024-07-17 20:18:12* Test Item Value Reference Range Interpretation Comme nts NA (test code = 8325061744) 141 mmol/L 135-145 K (test code = 9322472663) 3.8 mmol/L 3.5-5.0 CL (test code = 1122762056) 107 mmol/L 98-108 CO2 TOTAL (test code = 1699351884) 26 mmol/L 23-31 AGAP (test code = 9735851977) 8 2-16 BUN (test code = 1591176678) 16 mg/dL 7-23 GLUCOSE (test code = 5830139230) 112 mg/dL 70-110 H CREATININE (test code = 2160-0) 0.92 mg/dL 0.60-1.25 TOTAL BILI (test code = 2243795315) 0.5 mg/dL 0.1-1.1 CALCIUM (test code = 1171999470) 9.6 mg/dL 8.6-10.6 T PROTEIN (test code = 6705303377) 8.2 g/dL 6.3-8.2 ALBUMIN (test code = 0325136914) 4.8 g/dL 3.5-5.0 ALK PHOS (test code = 4887684527) 80 U/L 34-122 ALTv (test code = 1742-6) 30 U/L 5-50 AST(SGOT) (test code = 1530374437) 38 U/L 13-40 eGFR (test code = 48880-6) 114.1 mL/min/1.73m2 CKD-EPI eGFR (2020). Assuming creatinine has been stable day-to-day for at least three months, the eGFR indicates Category G1 (>= 90 mL/min/1.73 m2) Lab Interpretation (test code = 84492-9) Abnormal [facility] 20:17:56* Test Item Value Reference Range Interpretation Comme nts LIPASE (test code = 4351007430) 149 U/L 0-220 Lab Interpretation (test cod e = 24507-6) Normal [facility] WITH [id number] 19:58:51* Test Item Value Reference Range Interpretation [...] 34.2 g/dL 31.2-35.0 RDW-SD (test code = 47062-0) 38.1 fL 38.5-51.6 L RDW-CV (test code = 788-0) 11.8 % 12.1-15.4 L PLT (test code = 777-3) 389 150-328 H MPV (test code = 13036-4) 9.2 fL 9.8-13.0 L NRBC/100 WBC (test code = 0058873581) 0.0 0.0-10.0 NRBC x10^3 (test code = 2971320219) See_Comment [Automated messa ge] The system which generated this result transmitted reference range: 10*3/?L. The reference range was not used to interpret this result as normal/abnormal. GRAN MAT (NEUT) % (test code = 770-8) 64.7 % IMM GRAN % (test code = 9316892644) 0.30 % LYMPH % (test code = 736-9) 24.6 % MONO % (test code = 5905-5) 9.6 % EOS % (test code = 713-8) 0.5 % BASO % (test code = 706-2) 0.3 % GRAN MAT x10^3(ANC) (test code = 7000003255) 4.04 10*3/uL 1.99-6.95 IMM GRAN x10^3 (test code = 4525870464) 0.00-0.06 LYMPH x10^3 (test code = 731-0) 1.54 10*3/uL 1.09-3.23 MONO x10^3 (test code = 742-7) 0.60 10*3/uL 0.36-1.02 EOS x10^3 (test code = 711-2) 0.03 10*3/uL 0.06-0.53 L BASO x10^3 (test code = 704-7) 0.01-0.09 Lab Interpretation (test code = 16388-8) Abnormal [facility] Urinalysis, [id number] 16:52:00 * Test Item Value Reference Range [...] U APPEAR (test code = 3267) [facility],[id number] 16:52:00* Test Item Value Reference Range Interpretation Comme nts PVR (URINE VOLUME) (test code = 5193) 28 ml 0-100 [facility] SARS-COV-2 ANTIGEN (BINAX NOW)2023-12-20 18:11:00* Test Item Value Reference Range Interpretation Comme nts POCT SARS-COV-2 ANTIGEN (marty t code = 52125-5) Not Detected Not Detected On board controls acceptable with C Line (test code = 3574) Yes Lab Interpretation (test cod e = 82466-2) Normal [facility] Molecular [id number] 18:07:45* Test Item Value Reference Range Interpretation Comme nts POCT Molecular FluA (test co de = 11871-6) Negative Negative POCT Molecular FluB (test co de = 79024-4) Negative Negative Lab Interpretation (test cod e = 26658-7) [facility] [id number] 18:00:56* Test Item Value Reference Range Interpretation Comme nts POCT Molecular Strep (test c ode = 82588-6) Negative Negative Lab Interpretation (test cod e = 23953-1) [facility] [id number] 23:40:20ORDERING PHYSICIAN: ZOHRA PRATER HISTORY: 28 years old, Male, foreign body sensation in throat after taking3 pills , feeling of something stuck in throat TECHNIQUE: XR NECK SOFT TISSUE COMPARISON: none FINDINGS: Prevertebral soft tissues are normal. No radiopaque foreign bodyidentified. Bones appear intact.[facility] 2 [id number] 23:03:32EXAM: XR CHEST 2 VW COMPARISON: 12/08/2022 HISTORY: foreign body senation in throat , s/p swallowing p ills without anyliquidsUnSt[facility]XR CERVICAL SPINE 2 VW 2023-07-05 16:43:54EXAM: XR CERVICAL SPINE 2 VW HISTORY: neck pain COMPARISON: Cervical spine radiograph dated 03/24/2015[facility] HospitalCOMP[facility] METABOLIC PANEL ([id number])2022-12-12 00:37:54* Test Item Value Reference Range Interpretation Comme nts NA (test code = 0427414082) 142 mmol/L 135-145 K (test code = 4900834814) 4.1 mmol/L 3.5-5.0 CL (test code = 4533919053) 105 mmol/L 98-108 CO2 TOTAL (test code = 5368637935) 26 mmol/L 23-31 AGAP (test code = 8858352167) 11 2-16 BUN (test code = 1094016524) 15 mg/dL 7-23 GLUCOSE (test code = 7800934618) 97 mg/dL 70-110 CREATININE (test code = 5204589233) 1.03 mg/dL 0.60-1.25 TOTAL BILI (test code = 1404064091) 0.7 mg/dL 0.1-1.1 CALCIUM (test code = 8010533817) 10.0 mg/dL 8.6-10.6 T PROTEIN (test code = 3165225631) 8.3 g/dL 6.3-8.2 H ALBUMIN (test code = 4431814589) 5.1 g/dL 3.5-5.0 H ALK PHOS (test code = 8791072692) 66 U/L 34-122 ALTv (test code = 1742-6) 44 U/L 5-50 AST(SGOT) (test code = 3874424647) 30 U/L 13-40 eGFR (test code = 5083516657) 85.4 mL/min/1.73m2 DESIREE (test code = DESIREE) [...] imaging tests). Lab Interpretation (test code = 25594-7) Abnormal [facility] WITH [id number] 00:12:33* Test Item Value Reference Range Interpretation Comme nts WBC (test code = 6690-2) 7.70 See_Comment [Automated messa ge] The system which generated this result transmitted reference range: 4.20 - 10.70 10*3/?L. The reference range was not used to interpret this result as normal/abnormal. RBC (test code = 789-8) 5.28 See_Comment [Automated messa ge] The system which [...] g/dL 31.2-35.0 H RDW-SD (test code = 63887-9) 38.6 fL 38.5-51.6 RDW-CV (test code = 788-0) 12.0 % 12.1-15.4 L PLT (test code = 777-3) 328 See_Comment [Automated messa ge] The system which generated this result transmitted reference range: 150 - 328 10*3/?L. The reference range was not used to interpret this result as normal/abnormal. MPV (test code = 77468-4) 9.4 fL 9.8-13.0 L NRBC/100 WBC (test code = 3704310218) 0.0 See_Comment [Automated [employer]] The system which generated this result transmitted reference range: 0.0 - 10.0 /100 WBCs. The reference range was not used to interpret this result as normal/abnormal. NRBC x10^3 (test code = 7950866424) See_Comment [Automated messa ge] The system which generated this result transmitted reference range: 10*3/?L. The reference range was not used to interpret this result as normal/abnormal. GRAN MAT (NEUT) % (test code = 770-8) 69.1 % IMM GRAN % (test code = 2861500652) 0.30 % LYMPH % (test code = 736-9) 23.8 % MONO % (test code = 5905-5) 5.8 % EOS % (test code = 713-8) 0.5 % BASO % (test code = 706-2) 0.5 % GRAN MAT x10^3(ANC) (test code = 3395977978) 5.32 10*3/uL 1.99-6.95 IMM GRAN x10^3 (test code = 9076304397) 0.00-0.06 LYMPH x10^3 (test code = 731-0) 1.83 10*3/uL 1.09-3.23 MONO x10^3 (test code = 742-7) 0.45 10*3/uL 0.36-1.02 EOS x10^3 (test code = 711-2) 0.04 10*3/uL 0.06-0.53 L BASO x10^3 (test code = 704-7) 0.04 10*3/uL 0.01-0.09 Lab Interpretation (test code = 10177-7) [facility] [id number] 22:27:19 * Test Item Value Reference Range Interpretation Comme nts TSH (test code = 0370302130) 1.74 See_Comment [Automated messa ge] The system which generated this result transmitted reference range: 0.45 - 4.70 mIU/L. The reference range was not used to interpret this result as normal/abnormal. Lab Interpretation (test code = 58720-6) [facility] [id number] 22:08:38* Test Item Value Reference Range Interpretation Comme nts TROPONIN I (test code = 1877559189) 0.004 ng/mL <=0.034 DESIREE (test code = [...] of biotin. Lab Interpretation (test code = 61530-9) [facility] 22:05:21* Test Item Value Reference Range Interpretation Comme nts LIPASE (test code = 5086762330) 213 U/L 0-220 Lab Interpretation (test cod e = 04649-4) [facility] 22:05:16* Test Item Value Reference Range Interpretation Comme nts MAGNESIUM (test code = 9113652494) 1.7 mg/dL 1.7-2.4 Lab Interpretation (test cod e = 10811-3) [facility] 22:05:06* Test Item Value Reference Range Interpretation Comme nts NA (test code = 1613020943) 140 mmol/L 135-145 K (test code = 1248790946) 3.9 mmol/L 3.5-5.0 CL (test code = 6701230722) 105 mmol/L 98-108 CO2 TOTAL (test code = 7573398514) 26 mmol/L 23-31 AGAP (test code = 3339827991) 9 2-16 BUN (test code = 2202248599) 14 mg/dL 7-23 GLUCOSE (test code = 8986232340) 96 mg/dL 70-110 CREATININE (test code = 4480985004) 0.90 mg/dL 0.60-1.25 TOTAL BILI (test code = 0890441661) 0.8 mg/dL 0.1-1.1 CALCIUM (test code = 6313516942) 9.8 mg/dL 8.6-10.6 T PROTEIN (test code = 9289440995) 7.9 g/dL 6.3-8.2 ALBUMIN (test code = 9002679149) 4.9 g/dL 3.5-5.0 ALK PHOS (test code = 8178970026) 61 U/L 34-122 ALTv (test code = 1742-6) 39 U/L 5-50 AST(SGOT) (test code = 5739855876) 30 U/L 13-40 eGFR (test code = 0999091382) 99.8 mL/min/1.73m2 DESIREE (test code = DESIREE) [...] or urine or abnormalities in imaging tests). [facility]BHV2193-56-04 21:41:43* Test Item Value Reference Range Interpretation Comments D-DIMER (test code = 8363707360) See_Comment [Automated message] The system which generated this result transmitted reference range: <0.41 ?g/mL (FEU). The reference range was not used to interpret this result as normal/abnormal. DEISREE (test code = DESIREE) This test may [...] a diagnosis. Lab Interpretation (test code = 24470-8) Normal [facility] WITH [id number] 21:26:36* Test Item Value Reference Range Interpretation Comme nts WBC (test code = 6690-2) 6.69 See_Comment [Automated [employer]] The system which generated this result transmitted reference range: 4.20 - 10.70 10*3/?L. The reference range was not used to interpret this result as normal/abnormal. RBC (test code = 789-8) 5.24 See_Comment [Automated [employer]] The system which generated this result transmitted [...] g/dL 31.2-35.0 H RDW-SD (test code = 36868-7) 38.9 fL 38.5-51.6 RDW-CV (test code = 788-0) 12.1 % 12.1-15.4 PLT (test code = 777-3) 325 See_Comment [Automated [employer]] The system which generated this result transmitted reference range: 150 - 328 10*3/?L. The reference range was not used to interpret this result as normal/abnormal. MPV (test code = 49448-2) 9.4 fL 9.8-13.0 L NRBC/100 WBC (test code = 6894728071) 0.0 See_Comment [Automated me ssage] The system which generated this result transmitted reference range: 0.0 - 10.0 /100 WBCs. The reference range was not used to interpret this result as normal/abnormal. NRBC x10^3 (test code = 5936004185) See_Comment [Automated messa ge] The system which generated this result transmitted reference range: 10*3/?L. The reference range was not used to interpret this result as normal/abnormal. GRAN MAT (NEUT) % (test code = 770-8) 57.8 % IMM GRAN % (test code = 8568398629) 0.30 % LYMPH % (test code = 736-9) 33.8 % MONO % (test code = 5905-5) 6.9 % EOS % (test code = 713-8) 0.6 % BASO % (test code = 706-2) 0.6 % GRAN MAT x10^3(ANC) (test code = 4289396908) 3.87 10*3/uL 1.99-6.95 IMM GRAN x10^3 (test code = 6060882185) 0.00-0.06 LYMPH x10^3 (test code = 731-0) 2.26 10*3/uL 1.09-3.23 MONO x10^3 (test code = 742-7) 0.46 10*3/uL 0.36-1.02 EOS x10^3 (test code = 711-2) 0.04 10*3/uL 0.06-0.53 L BASO x10^3 (test code = 704-7) 0.04 10*3/uL 0.01-0.09 Lab Interpretation (test code = 32319-4) Abnormal [facility] METABOLIC PANEL (NA, K, CL, CO2, GLUCOSE, BUN, CREATININE, CA)2022-11-13 23:40:36* Test Item Value Reference Range Interpretation Comme nts NA (test code = 5327208934) 140 mmol/L 135-145 K (test code = 5322535557) 4.1 mmol/L 3.5-5.0 CL (test code = 3205760562) 103 mmol/L 98-108 CO2 TOTAL (test code = 6642156504) 26 mmol/L 23-31 AGAP (test code = 4714168910) 11 2-16 BUN (test code = 1575243502) 14 mg/dL 7-23 GLUCOSE (test code = 3457298989) 106 mg/dL 70-110 CREATININE (test code = 6756870543) 0.89 mg/dL 0.60-1.25 CALCIUM (test code = 6777792177) 9.7 mg/dL 8.6-10.6 eGFR (test code = 9689168216) 101.1 mL/min/1.73m2 DESIREE (test code = DESIREE) [...] or urine or abnormalities in imaging tests). [facility] WITH [id number] 23:33:18* Test Item Value Reference Range Interpretation Comme nts WBC (test code = 6690-2) 9.32 See_Comment [Automated [employer]] The system which generated this result transmitted reference range: 4.20 - 10.70 10*3/?L. The reference range was not used to interpret this result as normal/abnormal. RBC (test code = 789-8) 5.42 See_Comment [Automated messa ge] The system which [...] 35.0 g/dL 31.2-35.0 RDW-SD (test code = 96317-9) 37.6 fL 38.5-51.6 L RDW-CV (test code = 788-0) 12.2 % 12.1-15.4 PLT (test code = 777-3) 314 See_Comment [Automated [employer]] The system which generated this result transmitted reference range: 150 - 328 10*3/?L. The reference range was not used to interpret this result as normal/abnormal. MPV (test code = 32312-5) 9.6 fL 9.8-13.0 L NRBC/100 WBC (test code = 7584081938) 0.0 See_Comment [Automated [employer]] The system which generated this result transmitted reference range: 0.0 - 10.0 /100 WBCs. The reference range was not used to interpret this result as normal/abnormal. NRBC x10^3 (test code = 1501113370) See_Comment [Automated messa ge] The system which generated this result transmitted reference range: 10*3/?L. The reference range was not used to interpret this result as normal/abnormal. GRAN MAT (NEUT) % (test code = 770-8) 74.5 % IMM GRAN % (test code = 8161069295) 0.10 % LYMPH % (test code = 736-9) 18.1 % MONO % (test code = 5905-5) 6.5 % EOS % (test code = 713-8) 0.3 % BASO % (test code = 706-2) 0.5 % GRAN MAT x10^3(ANC) (test code = 4959755122) 6.93 10*3/uL 1.99-6.95 IMM GRAN x10^3 (test code = 9562170674) 0.00-0.06 LYMPH x10^3 (test code = 731-0) 1.69 10*3/uL 1.09-3.23 MONO x10^3 (test code = 742-7) 0.61 10*3/uL 0.36-1.02 EOS x10^3 (test code = 711-2) 0.03 10*3/uL 0.06-0.53 L BASO x10^3 (test code = 704-7) 0.05 10*3/uL 0.01-0.09 Lab Interpretation (test code = 21423-8) Abnormal [facility] URINALYSIS W SPECIFIC [id number] 16:30:00* Test Item Value Reference Range Interpretation [...] 3267) CLEAR Lab Interpretation (test code = 90682-7) Abnormal [facility] URINALYSIS W SPECIFIC [id number] 16:30:00* Test Item Value Reference Range Interpretation [...] 3267) CLEAR Lab Interpretation (test code = 26801-2) [facility]normal [facility] SPECIFIC [id number] 16:30:00* Test Item Value Reference Range Interpretation [...] 3267) CLEAR Lab Interpretation (test code = 73888-1) Abnormal [facility] W [id number] 18:54:58CT Abdomen and Pelvis with intravenous contrast. [...] is noted, otherwise no acuteintra-abdominal or pelvic abnormalities.[facility] 18:02:33* Test Item Value Reference Range Interpretation Comme nts APPEARANCE (test code = 8488087775) Clear Clear COLOR (test code = 2004094155) Yellow Yellow PH (test code = 6218675984) 4.8-8.0 SP GRAVITY (test code = 8724630705) 1.003-1.030 GLU U QUAL (test code = 7168221117) Normal Normal BLOOD (test code = 3407178633) Negative Negative KETONES (test code = 5350431353) Negative Negative PROTEIN (test code = 2887-8) Negative Negative UROBILIN (test code = 4679733398) Normal Normal BILIRUBIN (test code = 8314846410) Negative Negative NITRITE (test code = 1975005240) Negative Negative LEUK MITALI (test code = 9335125487) Negative Negative RBC/HPF (test code = 4802692038) See_Comment [Automated [employer]] The system which generated this result transmitted reference range: 0 - 3 HPF. The reference range was not used to interpret this result as normal/abnormal. WBC/HPF (test code = 0082346443) See_Comment [Automated [employer] ge] The system which generated this result transmitted reference range: 0 - 5 HPF. The reference range was not used to interpret this result as normal/abnormal. BACTERIA (test code = 8139708745) Negative Negative MUCOUS (test code = 7329506908) Slight Negative LPF A Lab Interpretation (test code = 02777-7) Abnormal [facility]. METABOLIC PANEL (77525)2020-12-28 17:57:13* Test Item Value Reference Range Interpretation Comme nts NA (test code = 8056532924) 142 mmol/L 135-145 K (test code = 8964418151) 4.5 mmol/L 3.5-5.0 CL (test code = 8488313311) 104 mmol/L 98-108 CO2 TOTAL (test code = 3318256581) 29 mmol/L 23-31 AGAP (test code = 9559722578) 2-16 BUN (test code = 3308758447) 13 mg/dL 7-23 GLUCOSE (test code = 7306173583) 101 mg/dL 70-110 CREATININE (test code = 0862803816) 0.92 mg/dL 0.60-1.25 TOTAL BILI (test code = 4640910410) 0.5 mg/dL 0.1-1.1 CALCIUM (test code = 3077678594) 9.9 mg/dL 8.6-10.6 T PROTEIN (test code = 8806296002) 8.0 g/dL 6.3-8.2 ALBUMIN (test code = 5566585706) 4.8 g/dL 3.5-5.0 ALK PHOS (test code = 7458241710) 61 U/L 34-122 ALTv (test code = 1742-6) 47 U/L 5-50 AST(SGOT) (test code = 4304121213) 37 U/L 13-40 eGFR (test code = 7801402959) mL/min/1.73m2 DESIREE (test code = DESIREE) Association [...] or urine or abnormalities in imaging tests). [facility] 17:56:33* Test Item Value Reference Range Interpretation Comme nts LIPASE (test code = 5826779093) 328 U/L 0-220 H Lab Interpretation (test cod e = 64255-4) Abnormal [facility] WITH [id number] 17:51:55* Test Item Value Reference Range Interpretation Comme nts WBC (test code = 6690-2) See_Comment [Automated [employer]] The system which generated this result transmitted reference range: 4.20 - 10.70 10*3/?L. The reference range was not used to interpret this result as normal/abnormal. RBC (test code = 789-8) See_Comment [Automated [employer]] The system which generated this result transmitted [...] 34.3 g/dL 31.2-35.0 RDW-SD (test code = 23142-0) 38.7 fL 38.5-51.6 RDW-CV (test code = 788-0) 12.2 % 12.1-15.4 PLT (test code = 777-3) See_Comment [Automated messa ge] The system which generated this result transmitted reference range: 150 - 328 10*3/?L. The reference range was not used to interpret this result as normal/abnormal. MPV (test code = 14911-9) 9.3 fL 9.8-13.0 L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
--- NOTE | 2024-10-21 13:28 | RAD REPORT ---
Procedure: Chest Pa And Lat (2 Views) HISTORY: Cough COMPARISON: 2020 FINDINGS: The lungs appear clear of acute infiltrate. Small granuloma right lung No significant pleural effusion noted. The heart is normal size. IMPRESSION: No acute abnormality is displayed.
[2024-10-21] MEDS ORDERED: ACETAMINOPHEN 500 MG TAB ONE (14:17)
[2024-10-21] MEDS ORDERED: IBUPROFEN 200 MG TAB PO ONE (14:18)
[2024-10-21] MEDS ORDERED: ONDANSETRON 4 MG (ODT) TAB ONE (14:19)
[2024-10-21 15:14] LABS: Influenza A Ag Negative; Influenza B Ag Negative; SARS-CoV-2 Antigen Rapid Res Negative (Negative)
[2024-10-21 15:56] LABS: Specific Gravity 1.028 (1.005-1.030); Sqamous Epithelial None Seen /HPF (None Seen); Urine Bacteria None Seen /HPF (<20); Urine Bilirubin NEGATIVE (Negative); Urine Blood Negative (Negative); Urine Clarity Clear (Clear); Urine Color Yellow (Yellow); Urine Crystals Unidentified Few /HPF (None Seen); Urine Glucose NEGATIVE (Negative); Urine Ketones NEGATIVE (Negative); Urine Micro Reflex YN NO BILL MICROSCOPIC; Urine Mucus 2+ /HPF (None Seen); Urine Nitrite NEGATIVE (Negative); Urine Protein NEGATIVE (Negative); Urine RBC <5 /HPF (None Seen); Urine Urobilinogen Normal (Normal); Urine WBC <5 /HPF (<5)
--- NOTE | 2024-10-21 16:11 | ER ---
Nurse's Notes [facility] Name: Ramiro Jay Age: 29 yrs Sex: Male : 1995 Arrival Date: 10/21/2024 Time: 12:09 Bed 9 Private MD: Diagnosis: Other acute sinusitis Presentation: 10/21 12:46 Chief complaint: Patient states: SORE THROAT, CONGESTION, RUNNY NOSE X 5 DAYS. WORSE db TODAY AND STATES HAS "SHARP" PAIN IN RIGHT SIDE OF FACE. STATES RIGHT LOWER BACK PAIN IS HURTING. Coronavirus screen: Client denies travel out of the [place] in the last 14 days. At this time, the client does not indicate any symptoms associated with coronavirus-19. Ebola Screen: Patient negative for fever greater than or equal to 101.5 degrees Fahrenheit, and additional compatible Ebola Virus Disease symptoms Patient denies exposure to infectious person. Patient denies travel to an Ebola-affected area in the 21 days before illness onset. No symptoms or risks identified at this time. Initial Sepsis Screen: Does the patient meet any 2 criteria? No. Patient's initial sepsis screen is negative. Does the patient have a suspected source of infection? No. Patient's initial sepsis screen is negative. Risk Assessment: Do you want to hurt yourself or someone else? Patient reports no desire to harm self or others. Onset of symptoms was October 16, 2024. 12:46 Method Of Arrival: Wheelchair db 12:46 Acuity: MICHELA 3 db Triage Assessment: 12:48 General: Appears in no apparent distress. comfortable, Behavior is calm, cooperative, db appropriate for age. Pain: Complains of pain in right low back. EENT: Nares with drainage noted Reports nasal congestion. Neuro: Level of Consciousness is awake, alert, obeys commands, Oriented to person, place, time, situation, Speech is normal. Cardiovascular: No deficits noted. Respiratory: Airway is patent Respiratory effort is even, unlabored, Respiratory pattern is regular, symmetrical. GI: No deficits noted. No signs and/or symptoms were reported involving the gastrointestinal system. : No deficits noted. No signs and/or symptoms were reported regarding the genitourinary system. Historical: - Allergies: 12:48 No Known Allergies; db - PMHx: 12:48 ADD/ADHD; Anxiety; depressive disorder; HERPES; Gastric Reflux; Pancreatitis; db - Immunization history:: Adult Immunizations unknown. - Infectious Disease History:: Denies. - Social history:: Smoking status: Smoking status: Patient denies any tobacco usage or history of. Vital Signs: 12:46 BP 125 / 91; Pulse 99; Resp 16; Temp 98; Pulse Ox 98% ; Weight 53.98 kg; Height 6 ft. 2 db in. ; Pain 10/10; 12:46 Body Mass Index 15.28 (53.98 kg, 187.96 cm) db 12:46 Pain Scale: Adult db ED Course: 12:14 Patient arrived in ED. [email or web address] 12:29 Buddy Isbell MD is Attending Physician. jr11 12:48 Triage completed. db 12:48 Arm band placed on right wrist. db 13:08 Chest Pa And Lat (2 Views) XRAY In Process Unspecified. EDMS 14:20 Letitia Trent, RN is Primary Nurse. iw Administered Medications: 14:30 Drug: Ondansetron Oral Disintegrating Tablet Oral Disintegrating Tablet 4 mg PO once iw Route: PO; 14:30 Drug: Ibuprofen PO 600 mg PO once Route: PO; iw 14:30 Drug: Acetaminophen PO 1000 mg PO once Route: PO; iw Outcome: 16:11 Discharge ordered by . jr11 16:23 Patient left the ED. iw Signatures: Dispatcher [employer] EDMS Letitia Trent, RN RN iw Buddy Isbell MD MD jr11 Sussy Benitez RN RN db Marcie Hayes [email or web address] Corrections: (The following items were deleted from the chart) 12:48 12:46 Onset of symptoms was October 21, 2024 db db 12:48 12:48 Allergies: Aspirin; db db
--- NOTE | 2024-10-21 16:12 | EDPHYS ---
Physician Documentation [facility] Name: Ramiro Jay Age: 29 yrs Sex: Male : 1995 Arrival Date: 10/21/2024 Time: 12:09 Bed 9 Private MD: ED Physician Buddy Isbell HPI: 10/21 14:06 Chief Complaint: Severe sore throat and back pain. History of Present Illness: The jr11 patient reported that about five days ago, they began experiencing symptoms they initially thought were related to allergies, including a runny nose, congestion, and a sore throat. These symptoms worsened significantly over the next four days, with the sore throat becoming constant and severe. The patient also described sharp pain that worsens with movement or breathing deeply, particularly on the right side. They mentioned concerns about potential kidney pain but acknowledged that it might be musculoskeletal due to the movement-induced nature of the pain. The patient has been experiencing persistent coughing and vomiting, with the last episode of vomiting occurring this morning, described as dry heaving. They suspect a sinus infection due to the nature of the mucus, which is thick and unilateral. The patient has been taking acetaminophen, Theraflu, and Emergen-C but stopped taking multiple vitamins due to stomach burning. There are no drug allergies reported. Review of Systems: - Positive for runny nose, congestion, sore throat, cough, vomiting, and sharp pain in the back. - Reports not having fever, chills, or new drug allergies. - ROS otherwise negative. . Historical: - Allergies: 12:48 No Known Allergies; db - PMHx: 12:48 ADD/ADHD; Anxiety; depressive disorder; HERPES; Gastric Reflux; Pancreatitis; db - Immunization history:: Adult Immunizations unknown. - Infectious Disease History:: Denies. - Social history:: Smoking status: Smoking status: Patient denies any tobacco usage or history of. Exam: 14:06 Constitutional: This is a well developed, well nourished patient who is awake, alert, jr11 and in no acute distress. ENT: boggy nasal mucosa, no exudate Neck: Trachea midline, no thyromegaly or masses palpated, and no cervical lymphadenopathy. Supple, full range of motion without nuchal rigidity, or vertebral point tenderness. No Meningismus. Cardiovascular: Regular rate and rhythm with a normal S1 and S2. No gallops, murmurs, or rubs. Normal PMI, no JVD. No pulse deficits. Respiratory: Lungs have equal breath sounds bilaterally, clear to auscultation and percussion. No rales, rhonchi or wheezes noted. No increased work of breathing, no retractions or nasal flaring. Abdomen/GI: Soft, non-tender, with normal bowel sounds. No distension or tympany. No guarding or rebound. No evidence of tenderness throughout. Back: No spinal tenderness. No costovertebral tenderness. Full range of motion. Skin: Warm, dry with normal turgor. Normal color with no rashes, no lesions, and no evidence of cellulitis. MS/ Extremity: Pulses equal, no cyanosis. Neurovascular intact. Full, normal range of motion. Neuro: Awake and alert, GCS 15, oriented to person, place, time, and situation. No gross motor or sensory deficits. Vital Signs: 12:46 BP 125 / 91; Pulse 99; Resp 16; Temp 98; Pulse Ox 98% ; Weight 53.98 kg; Height 6 ft. 2 db in. ; Pain 10/10; 12:46 Body Mass Index 15.28 (53.98 kg, 187.96 cm) db 12:46 Pain Scale: Adult db MDM: 12:50 Medical Screening Exam initiated jr11 14:06 Differential diagnosis: Medical Decision Making: The differential diagnosis includes jr11 sinusitis, musculoskeletal strain, gastroesophageal reflux disease (GERD), and less likely, but life-threatening conditions such as pneumonia, given the cough and recent vomiting. The patient's symptoms suggest a viral upper respiratory infection or sinusitis, but the persistent vomiting and musculoskeletal pain may indicate a secondary issue, such as GERD or a musculoskeletal strain from coughing. The less likely but serious possibility of pneumonia warrants a chest x-ray for further evaluation. Plan: - Perform chest x-ray to rule out pneumonia. - Continue symptomatic treatment with acetaminophen and consider adding a decongestant. - Advise the patient to follow up with primary care for further evaluation and management. - Reassess with repeat x-rays in seven days if symptoms do not improve. . 16:09 Data reviewed: X-ray interpreted by me does not show pneumonia. Will treat for jr11 sinusitis given pain on his right maxilla worse with leaning forward. 10/21 12:51 Order name: COVID-19 Ag + Flu A+B Ag; Complete Time: 16:01 11 10/21 15:30 Order name: UAM; Complete Time: 16:01 11 10/21 12:51 Order name: Chest Pa And Lat (2 Views) XRAY; Complete Time: 14:03 11 Administered Medications: 14:30 Drug: Ondansetron Oral Disintegrating Tablet Oral Disintegrating Tablet 4 mg PO once iw Route: PO; 14:30 Drug: Ibuprofen PO 600 mg PO once Route: PO; iw 14:30 Drug: Acetaminophen PO 1000 mg PO once Route: PO; iw Disposition Summary: 10/21/24 16:11 Discharge Ordered Notes: Location: Home jr11 Condition: Fair jr11 Diagnosis - Other acute sinusitis jr11 Discharge Instructions: - Discharge Summary Sheet jr11 - Sinusitis, Adult [facility] Forms: - Medication Reconciliation Form jr11 - Antibiotic Education jr11 - Prescription Opioid Use jr11 - Patient Portal Instructions jr11 - Leadership Thank You Letter jr11 - Work release form cc6 Prescriptions: - Augmentin 875-125 mg Oral Tablet - take 1 tablet ORAL route every 12 hours for 10 days; 20 tablet; Refills: 0, [facility] Product Selection Permitted - benzonatate 200 mg Oral capsule - take 1 capsule ORAL route 3 times per day as needed for cough; 20 capsule; 11 Refills: 0, Product Selection Permitted Signatures: Dispatcher [employer] Letitia Wilson, RN AUDRA iw Buddy Isbell MD MD jr11 Sussy Benitez RN RN db Corrections: (The following items were deleted from the chart) 12:48 12:48 Allergies: Aspirin; db db 12:51 12:51 COVID-19 Ag + Flu A+B Ag+I.LAB.BRZ ordered. EDMS EDMS 12:51 12:51 Chest Pa And Lat (2 Views)+RAD.RAD.BRZ ordered. EDMS EDMS
[2024-10-21 16:32] VITALS: BP 125/91; TEMP 98; O2SAT 98
== END 2024-10-21 16:23 | disposition home or self-care (01) ==
LOC: ER 12:09
DX: J01.80 Other acute sinusitis (principal); Z11.52 Encounter for screening for COVID-19
CPT/HCPCS: 36415; 71046; 81001; 87428; Q0162